=== PATIENT | male | born 1960 | race Two or more races ===

== ENCOUNTER 2024-04-03 21:06 | Inpatient (IN) | payer MEDICAID ==
[~2024-04-03] VITALS: Ht 185.4 cm; Wt 79.4 kg
[2024-04-03 21:50] LABS: Basophils # (auto) 0.1 10 ^3/uL (0-0.2); Eosinophils # (auto) 0.1 10 ^3/uL (0-0.8); Lymphocytes # (auto) 0.9 10 ^3/uL (0.4-5.4); Neutrophils # (auto) 7.7 10 ^3/uL (1.6-8.6); Nucleated Red Blood Cells % 0.1 %; Platelet Count (auto) 231 10^3/uL (140-450); Red Cell Distribution Width 18.9 % (11.8-14.3); White Blood Cell 9.8 10^3/uL (4.4-10.8)
[2024-04-03 21:52] LABS: Basophils % (auto) 0.9 % (0.0-2.0); Eosinophils % (auto) 1.3 % (0.0-7.0); Hemoglobin 9.7 g/dL (13.5-17.5); Lymphocytes % (auto) 9.1 % (10.0-50.0); Mean Corpuscular Hemoglobin 25.7 pg (28.0-32.0); Mean Corpuscular Hgb Conc. 31.3 g/dL (32.0-36.0); Mean Corpuscular Volume 82.1 fL (80.0-100.0); Monocytes # (auto) 0.9 10 ^3/uL (0-1.3); Monocytes % (auto) 9.7 % (0.0-12.0); Red Blood Cells 3.77 10^6/uL (4.5-5.90)
[2024-04-03 21:59] LABS: Chloride 110 mmol/L (98-107); Potassium 3.6 mmol/L (3.5-5.1); Sodium 141 mmol/L (136-145)
[2024-04-03 22:00] LABS: Anion Gap 17 (5-15); Calcium 8.8 mg/dL (8.7-10.4); Carbon Dioxide 14 mmol/L (20-31)
[2024-04-03 22:05] LABS: BUN/Creatinine Ratio 10.3 (10.0-20.0); Blood Urea Nitrogen 9 mg/dL (9-23); Glucose 160 mg/dL (74-106)
[2024-04-03 22:32] LABS: Urine Bacteria None Seen /hpf (None Seen)
[2024-04-03 22:35] VITALS: PULSE 67; RESP 14; O2SAT 94
[2024-04-03 22:42] LABS: Urine Blood 2+ /uL (Negative); Urine Clarity Clear (Clear); Urine Color Light-Yellow (Yellow); Urine Protein, UAD 1+ (Negative); Urine Specific Gravity 1.015 (1.001-1.035); Urine Urobilinogen Normal (Negative); Urine WBC <1 /hpf (0 - 3); Urine pH 5.5 (5.0-9.0)
[2024-04-04] MEDS: ONDANSETRON HCL 4 MG/2 ML VIAL IV ONE
[2024-04-04] MEDS: ACETAMINOPHEN IV 1000 MG/100ML (10MG/ML) IV STA (00:01)
[2024-04-04] MEDS: MORPHINE SULFATE 4 MG/ML SYR/VIAL IV ONE ×2 (02:43)
[2024-04-04 05:53] LABS: Amphetamine Screen, Urine Neg (NEGATIVE); Barbiturate Scree,Urine Neg (NEGATIVE); Benzodiazephine Screen, Urine Neg (NEGATIVE); Cocaine Screen, Urine Neg (NEGATIVE)
[2024-04-04 05:54] LABS: Cannabinoid Screen, Urine Neg (NEGATIVE); Opiate Scree,Urine Neg (NEGATIVE); Phencyclidine Screen, Urine Neg (NEGATIVE)
[2024-04-04] MEDS ORDERED: DEXTROSE (50%) 50ML SYRG IV PRN (06:00)
[2024-04-04] MEDS: SODIUM CHLOR 0.9% PF (SALINE LOCK) 10ML VIAL/SYR IV SCH (06:00)
[2024-04-04] MEDS ORDERED: ONDANSETRON HCL 4 MG/2 ML VIAL IV PRN (06:00)
[2024-04-04] MEDS ORDERED: NITROGLYCERIN 0.4 MG SL TAB SL PRN (06:00)
[2024-04-04] MEDS ORDERED: MORPHINE SULFATE INJ 2 MG/ml SYRG IV PRN (06:00)
[2024-04-04] MEDS ORDERED: DOCUSATE SOD 100 MG CAP PO PRN (06:00)
[2024-04-04] MEDS: ACCU-CHEK COMFORT CURVE STRIP VI SCH (06:38)
[2024-04-04] MEDS: InsuLIN REG 1unit/0.01ml Soln (100units/ml) SC SCH ×2 (06:39→22:34)
[2024-04-04] MEDS: MORPHINE SULFATE INJ 2 MG/ml SYRG IV PRN (06:40)
[2024-04-04] MEDS: LACTATED RINGER'S 1,000 ML IV SCH (08:15)
[2024-04-04] MEDS: HYDROcodone-ACET 5/325MG TAB PO PRN (09:21)
[2024-04-04 17:15] VITALS: BP 166/44; PULSE 66; RESP 18; TEMP 98.6; O2SAT 94
[2024-04-04 17:27] VITALS: BP 166/44; PULSE 66; RESP 18; TEMP 98.6; O2SAT 94
[2024-04-04] MEDS: ACETAMINOPHEN 325 MG TAB PO PRN (18:36)
[2024-04-04 20:00] VITALS: PULSE 71; RESP 16; O2SAT 95
[2024-04-04 21:00] VITALS: BP 140/70; PULSE 69; RESP 95; TEMP 99.2; O2SAT 95
[2024-04-04] MEDS ORDERED: TAMS1CAP25 PO (22:26)
[2024-04-05] VITALS (7 sets, daily range): BP systolic 118–153; BP diastolic 59–93; PULSE 67–78; RESP 17–20; TEMP 98.1–99.7; O2SAT 91–93
[2024-04-05 12:09] LABS: Basophils # (auto) 0 10 ^3/uL (0-0.2); Eosinophils # (auto) 0.1 10 ^3/uL (0-0.8); Hemoglobin 8.8 g/dL (13.5-17.5); Lymphocytes # (auto) 0.6 10 ^3/uL (0.4-5.4); Lymphocytes % (auto) 9.2 % (10.0-50.0); Mean Corpuscular Hemoglobin 25.4 pg (28.0-32.0); Monocytes # (auto) 0.7 10 ^3/uL (0-1.3); Neutrophils # (auto) 5.3 10 ^3/uL (1.6-8.6)
[2024-04-05 12:11] LABS: Basophils % (auto) 0.7 % (0.0-2.0); Eosinophils % (auto) 1.7 % (0.0-7.0); Hematocrit 28.4 % (41.0-53.0); Mean Corpuscular Hgb Conc. 30.8 g/dL (32.0-36.0); Mean Corpuscular Volume 82.3 fL (80.0-100.0); Monocytes % (auto) 10.7 % (0.0-12.0); Neutrophils % (auto) 77.7 % (37.0-80.0); Platelet Count (auto) 176 10^3/uL (140-450); Red Blood Cells 3.45 10^6/uL (4.5-5.90); Red Cell Distribution Width 18.8 % (11.8-14.3); White Blood Cell 6.8 10^3/uL (4.4-10.8)
[2024-04-05 12:24] LABS: Alanine Aminotransferase 16 U/L (7-40); Alkaline Phosphatase 88 U/L (46-116); Anion Gap 9 (5-15); Blood Urea Nitrogen 7 mg/dL (9-23); Carbon Dioxide 22 mmol/L (20-31); Chloride 105 mmol/L (98-107); Glucose 151 mg/dL (74-106); Potassium 3.5 mmol/L (3.5-5.1)
[2024-04-05 12:25] LABS: Albumin 3.8 g/dL (3.2-4.8); Aspartate Aminotransferase 25 U/L (13-40); Bilirubin, Total 1.4 mg/dL (0.2-1.0)
[2024-04-05 12:26] LABS: Sodium 136 mmol/L (136-145); Total Protein 6.7 g/dL (5.7-8.2)
[2024-04-05] MEDS ORDERED: IBUPROFEN 600 MG TAB PO PRN (14:00)
[2024-04-05] MEDS: ACETAMINOPHEN 325 MG TAB PO SCH (14:28)
[2024-04-05] MEDS: MORPHINE SULFATE INJ 2 MG/ml SYRG IV PRN (14:37)
[2024-04-05] MEDS ORDERED: diphenhdrAMINE HCL 50 MG/1 ML VL IV PRN (17:45)
[2024-04-05] MEDS: TAMSULOSIN HYDROCHLORIDE 0.4 MG CAP PO SCH (17:55)
[2024-04-05] MEDS: PANTOPRAZOLE 40 MG/10 ML VIAL INJ IV ONE (18:59)
[2024-04-05] MEDS: IBUPROFEN 600 MG TAB PO SCH (22:54)
[2024-04-06] VITALS (7 sets, daily range): BP systolic 112–144; BP diastolic 43–83; PULSE 61–78; RESP 17–20; TEMP 97.9–98.4; O2SAT 90–96
[2024-04-06] MEDS: oxyCODONE HCL 5MG TAB PO PRN (04:22)
[2024-04-06 06:00] LABS: Basophils # (auto) 0.1 10 ^3/uL (0-0.2); Lymphocytes # (auto) 0.7 10 ^3/uL (0.4-5.4); Monocytes # (auto) 0.6 10 ^3/uL (0-1.3); Neutrophils # (auto) 4.5 10 ^3/uL (1.6-8.6); White Blood Cell 6.1 10^3/uL (4.4-10.8)
[2024-04-06 06:04] LABS: Basophils % (auto) 1.5 % (0.0-2.0); Eosinophils # (auto) 0.2 10 ^3/uL (0-0.8); Eosinophils % (auto) 3.8 % (0.0-7.0); Hematocrit 25.2 % (41.0-53.0); Mean Corpuscular Hemoglobin 25.6 pg (28.0-32.0); Mean Corpuscular Hgb Conc. 31.7 g/dL (32.0-36.0); Mean Corpuscular Volume 80.9 fL (80.0-100.0); Monocytes % (auto) 9.7 % (0.0-12.0); Platelet Count (auto) 171 10^3/uL (140-450); Red Blood Cells 3.11 10^6/uL (4.5-5.90)
[2024-04-06 06:09] LABS: Alanine Aminotransferase 16 U/L (7-40); Albumin 3.6 g/dL (3.2-4.8); Alkaline Phosphatase 83 U/L (46-116); Anion Gap 10 (5-15); Aspartate Aminotransferase 21 U/L (13-40); BUN/Creatinine Ratio 9.2 (10.0-20.0); Blood Urea Nitrogen 8 mg/dL (9-23); Calcium 8.9 mg/dL (8.7-10.4); Carbon Dioxide 21 mmol/L (20-31); Chloride 104 mmol/L (98-107); Glucose 207 mg/dL (74-106); Potassium 3.4 mmol/L (3.5-5.1); Sodium 135 mmol/L (136-145); Total Protein 6.3 g/dL (5.7-8.2)
[2024-04-06 06:10] LABS: Bilirubin, Total 1.4 mg/dL (0.2-1.0)
[2024-04-06] MEDS: PANTOPRAZOLE 40 MG TAB PO SCH (06:27)
[2024-04-07] VITALS (8 sets, daily range): BP systolic 99–164; BP diastolic 61–78; PULSE 60–69; RESP 15–20; TEMP 97.7–98.2; O2SAT 16–96
[2024-04-07 06:52] LABS: Basophils # (auto) 0.1 10 ^3/uL (0-0.2); Basophils % (auto) 1.4 % (0.0-2.0); Hemoglobin 8.2 g/dL (13.5-17.5); Lymphocytes # (auto) 0.5 10 ^3/uL (0.4-5.4)
[2024-04-07 06:55] LABS: Eosinophils # (auto) 0.2 10 ^3/uL (0-0.8); Eosinophils % (auto) 5.5 % (0.0-7.0); Hematocrit 26.3 % (41.0-53.0); Mean Corpuscular Hemoglobin 25.2 pg (28.0-32.0); Mean Corpuscular Hgb Conc. 31.4 g/dL (32.0-36.0); Mean Corpuscular Volume 80.2 fL (80.0-100.0); Monocytes # (auto) 0.6 10 ^3/uL (0-1.3); Monocytes % (auto) 13.7 % (0.0-12.0); Neutrophils # (auto) 2.9 10 ^3/uL (1.6-8.6); Neutrophils % (auto) 67.4 % (37.0-80.0); Nucleated Red Blood Cells % 0.2 %; Platelet Count (auto) 178 10^3/uL (140-450); Red Blood Cells 3.27 10^6/uL (4.5-5.90); Red Cell Distribution Width 18.9 % (11.8-14.3); White Blood Cell 4.3 10^3/uL (4.4-10.8)
[2024-04-07 07:17] LABS: Alanine Aminotransferase 13 U/L (7-40); Alkaline Phosphatase 84 U/L (46-116); Anion Gap 10 (5-15); BUN/Creatinine Ratio 12.2 (10.0-20.0); Blood Urea Nitrogen 11 mg/dL (9-23); Calcium 8.7 mg/dL (8.7-10.4); Carbon Dioxide 23 mmol/L (20-31); Chloride 102 mmol/L (98-107); Glucose 233 mg/dL (74-106); Potassium 3.9 mmol/L (3.5-5.1); Sodium 135 mmol/L (136-145)
[2024-04-07 07:18] LABS: Albumin 3.8 g/dL (3.2-4.8); Aspartate Aminotransferase 15 U/L (13-40)
[2024-04-07 07:19] LABS: Total Protein 6.3 g/dL (5.7-8.2)
[2024-04-07] MEDS: BACLOFEN 10 MG TAB PO SCH (14:09)
[2024-04-07] MEDS ORDERED: BACL10TA PO (17:49)
[2024-04-07] MEDS ORDERED: OXY10CRT PO (17:49)
[2024-04-07] MEDS ORDERED: IBUP1TAB5 PO (17:49)
[2024-04-07] MEDS ORDERED: TAMS-35 PO (17:49)
[2024-04-07] MEDS ORDERED: OXYC-998 PO (17:49)
[2024-04-08 01:00] VITALS: BP 156/49; PULSE 65; RESP 17; TEMP 98.9; O2SAT 95
[2024-04-08 05:00] VITALS: BP 137/65; PULSE 68; RESP 19; TEMP 98.9; O2SAT 96
[2024-04-08 07:30] VITALS: BP 148/69
[2024-04-08 08:00] VITALS: PULSE 65
[2024-04-08 09:00] VITALS: BP 146/62; PULSE 64; RESP 18; TEMP 98.1; O2SAT 96
[2024-04-08 09:49] LABS: Hepatitis B Surface Antigen Negative (Negative)
[2024-04-08 10:10] LABS: Hepatitis A Ab IgM Negative
[2024-04-08 10:11] LABS: Hepatitis B Core IgM Negative
[2024-04-08 13:37] LABS: Hepatitis C Antibody Positive (Negative)
== END 2024-04-08 09:30 | disposition home or self-care (01) | DRG 775 ==
LOC: ER 21:06 → TELE 04-04 05:51 → TELE-WESTW 04-04 05:54
PROVIDERS: ADMIT Nurse Practitioner Family; ATTEND Student in an Organized Health Care Education/Training Program
DX: F10.129 Alcohol abuse with intoxication, unspecified (principal); S22.41XA Multiple fractures of ribs, right side, initial encounter for closed fracture; E88.09 Other disorders of plasma-protein metabolism, not elsewhere classified; K74.60 Unspecified cirrhosis of liver; E87.1 Hypo-osmolality and hyponatremia; E11.65 Type 2 diabetes mellitus with hyperglycemia; D64.9 Anemia, unspecified; E80.6 Other disorders of bilirubin metabolism; E87.6 Hypokalemia; R29.6 Repeated falls; Y90.9 Presence of alcohol in blood, level not specified; W01.0XXA Fall on same level from slipping, tripping and stumbling without subsequent striking against object, initial encounter; Z88.8 Allergy status to other drugs, medicaments and biological substances; Z95.1 Presence of aortocoronary bypass graft; Z83.3 Family history of diabetes mellitus; Y93.89 Activity, other specified; Y92.89 Other specified places as the place of occurrence of the external cause; Y99.8 Other external cause status
CPT/HCPCS: 36415; 70450; 71045; 71111; 72040; 72070; 73200; 80048; 80053; 80074; 80307; 80320; 81001; 82962; 83540; 83550; 84484; 85025; 86803; 87081; G0378; J0131; J1815; J2405; J2470

== ENCOUNTER 2024-04-24 16:22 | Inpatient (IN) | payer MEDICAID ==
[~2024-04-24] VITALS: Ht 185.4 cm; Wt 75.7 kg
[~2024-04-24 16:22] MED LIST: BACL10TA PO; IBUP1TAB5 PO; OXY10CRT PO; OXYC-998 PO; TAMS-35 PO; TAMS1CAP25 PO
[2024-04-24 16:45] VITALS: PULSE 83; RESP 19; O2SAT 95
--- NOTE | 2024-04-24 17:07 | ED.PDOC ---
John. trauma (HPI) HPI Comments 63 y.o male with PMH of CAD and DM, presents to the ED for an evaluation of generalized weakness associated with a fall. Patient reports 2 days ago he had a slip and fall in his bathroom, states he hit the left side of his head before falling and lost consciousness for about 5-10 minutes. Patient managed to get to his walker and assist himself up, was able to bear some weigh to left leg briefly but felt immediate pain and shifted his weight onto the right leg. Patient states since this fall he has uncontrolled shaking associated with left knee, right shoulder blade pain. Patient was seen at this hospital on 04/04/24 for another fall, X rays showed "displaced multiple rib fractures". Patient's BG upon ED arrival read 439 and [phone]. Patient has a caregiver at home who lives with him, states caregiver brought him to the ED . Patient had an extensive cardiac history of: Triple/quadruple bypass, PTCA x9, aicd, and bilateral feet/all toe amputation. Chief Complaint: General Weakness Time Seen by MD: 16:46 Reviewed notes: Nurses Notes, Medications, Allergies Allergies: Coded Allergies: Codeine (Verified Allergy, Unknown, 04/24/24) Ketorolac Tromethamine (Verified Allergy, Unknown, 04/03/24) Home Meds Active Scripts Ibuprofen Micronized (Ibuprofen) 600 Mg Tab, 600 MG PO BID for 7 Days, #14 TAB Prov:TAMMY ANNE MD 04/07/24 Oxycodone HCl (Oxycodone Hydrochloride) 10 Mg Tab, 10 MG PO TIDPRN PRN for 7 Days, #21 TAB Prov:TAMMY ANNE MD 04/07/24 Oxycodone Hcl (OxyCONTIN ER Tablet) 10 Mg Tb, 1 TAB PO BID for 7 Days, #14 TAB 0 Refills Prov:TAMMY ANNE MD 04/07/24 Tamsulosin Hcl (Flomax) 0.4 Mg Cap, 0.4 MG PO QPM for 30 Days, #30 CAP 0 Refills Prov:TAMMY ANNE MD 04/07/24 Baclofen (Baclofen) 10 Mg Tab, 5 MG PO Q8HR for 30 Days, #45 TAB 0 Refills Prov:TAMMY ANNE MD 04/07/24 Reported Medications Tamsulosin HCl (Tamsulosin Hydrochloride) 0.4 Mg Cap, 0.4 MG PO, CAP 04/04/24 Information Source: Patient Mode of Arrival: Wheelchair Severity: Moderate Timing: Hours Duration: Since onset Location: (L) Knee, (R) Shoulder Location of laceration: None Mechanism: Fall Associated signs and symtoms: Other Past Medical History PAST MEDICAL HISTORY: CAD, DM Surgical History: CABG, PTCA (9) Surgical History (Other): Bilateral feet/toes amputations Family History Family History: Reviewed,noncontributory to illness Social History Smoker: Non-Smoker Alcohol: Heavy Drugs: Denies Drug Use Lives In: Home Constitutional: reports: weakness; denies: chills, diaphoresis, fatigue, fever, malaise, sweats, others EENTM: denies: blurred vision, double vision, ear bleeding, ear discharge, ear drainage, ear pain, ear ringing, eye pain, eye redness, hearing loss, mouth pain, mouth swelling, nasal discharge, nose bleeding, nose congestion, nose pain, photophobia, tearing, throat pain, throat swelling, voice changes, others Respiratory: denies: cough, hemoptysis, orthopnea, SOB at rest, shortness of breath, SOB with excertion, stridor, wheezing, others Cardiovascular: denies: chest pain, dizzy spells, diaphoresis, Dyspnea on exertion, edema, irregular heart beat, left arm pain, lightheadedness, palpitations, PND, syncope, others Gastrointestinal: denies: abdomen distended, abdominal pain, blood streaked bowels, constipated, diarrhea, dysphagia, difficulty swallowing, hematemesis, melena, nausea, poor appetite, poor fluid intake, rectal bleeding, rectal pain, vomiting, others Genitourinary: denies: burning, dysuria, flank pain, frequency, hematuria, incontinence, penile discharge, penile sore, pain, testicle pain, testicle swelling, urgency, others Neurological: reports: others (shakiness sensation ); denies: dizziness, fainting, headache, left sided numbness, left sided weakness, numbness, paresthesia, pre-existing deficit, right sided numbness, right sided weakness, seizure, speech problems, tingling, tremors, weakness Musculoskeletal: reports: others (left knee, right shoulderblade pain ); denies: back pain, gout, joint pain, joint swelling, muscle pain, muscle sti ffness, neck pain Integumetry: denies: bruises, change in color, change in hair/nails, dryness, laceration, lesions, lumps, rash, wounds, others Allergic/Immunocompromised: denies: Difficulty Healing, Frequent Infections, Hives, Itching, others Hematologic/Lymphatic: denies: anemia, blood clots, easy bleeding, easy b ruising, swollen glands, others Endocrine: denies: excessive hunger, excessive sweating, excessive thirst, excessive urination, flushing, intolerance to cold, intolerance to heat, unexplained weight gain, unexplained weight loss, others Psychiatric: denies: anxiety, bipolar disorder, depression, hopeless, panic disorder, schizophrenia, sleepless, suicidal, others All Other Systems: Reviewed and Negative Physical Exam General Appearance: Mild Distress HEENT: PERRL/EOMI, Other (Superficial facial abrasion with soft tissue tenderness) Neck: Full Range of Motion, Non-Tender, Normal Inspection, Supple Respiratory: Lungs Clear, No Accessory Muscle Use, No Respiratory Distress, Normal Breath Sounds Cardiovascular: No JVD, Regular Rate/Rhythm Breast Exam: Deferred Gastrointestinal: Non Tender, Soft Genitalia: Deferred Pelvic: Deferred Rectal: Deferred Extremities: Calf tenderness (Left), Swelling (Bilateral knee soft tissue swelling and mild bruising, left greater than right. ), Tender (Soft tissue tenderness overlying the right scapular area. Mild diffuse left shoulder soft tissue tenderness. Bilateral knee diffuse tenderness, left greater than right.), Other (Bilateral knee anterior/posterior drawer test negative. No varus/valgus instability.) Neurologic: Alert (Oriented x4), Normal Affect, Normal Mood, Other (Moves all extremities, no facial asymmetry) Cerebellar Function: NOT DONE Reflexes: NOT DONE Skin: Bruises (Bilateral knees, right greater than left), Dry, Normal Color, Warm, Other (Superficial left facial abrasion) Lymphatic: NOT DONE Was a procedure done? Was a procedure done?: No Other Procedure Procedure Left lower extremity splint Indication Left tibial plateau fracture with knee effusion Informed consent obtained: Yes Risks, benefits, and alternati: Yes Notes Left lower extremity was placed in a long posterior molded splint. The left lower extremity was neurovascularly intact after the splint was applied. EKG EKG : Comments EKG sinus rhythm, rate 81, short ID interval at 49, prolonged QRS at 147, prolonged QTC at 452, LVH, old inferior and/or lateral infarct, inferior lateral T inversion Differential Diagnosis Multiple Trauma: Closed Head Injury, Fractures, Cerebral Contusion, Abrasions, Contusion, Hematoma, Other (Dehydration, electrolyte imbalance, CVA, TIA, VTE, infection such as UTI or pneumonia, sepsis, anemia, among others) X-Ray, Labs, Meds, VS Vital Signs Date Time Temp Pulse Resp B/P (MAP) Pulse Ox O2 Delivery O2 Flow Rate FiO2 04/24/24 21:10 106 18 121/68 04/24/24 20:40 102 17 131/59 04/24/24 20:18 102 17 131/59 (83) 98 04/24/24 20:00 81 19 98 Nasal Cannula* 3 32 04/24/24 20:00 90 04/24/24 19:00 81 19 114/68 (83) 91 04/24/24 18:06 84 20 112/57 04/24/24 17:27 83 19 122/60 04/24/24 17:22 81 04/24/24 16:45 83 19 95 Room Air* 0 21 04/24/24 16:45 83 19 122/60 (80) 95 04/24/24 16:34 97.5 85 18 130/62 (84) 95 Lab Test 04/24/24 19:37 04/24/24 19:06 04/24/24 19:05 04/24/24 18:03 Range/Units Lactic Acid Level 2.4 *H 0.4-2.0 mmol/L POC Glucose 432 *H 412 *H 70-106 mg/dl Troponin I High Sensitivity 5 </=54 ng/L Test 04/24/24 17:50 04/24/24 17:25 04/24/24 17:13 Range/Units Blood Gas Specimen Type Arterial Blood Gas Sample Site Right radial Blood Gas Patient Temperature 37.0 Arterial Blood Date Drawn [id number] Arterial Blood pH 7.418 7.350-7.450 Arterial Blood Partial Pressure CO2 26.7 L 35.0-48.0 mmHg Arterial Blood Partial Pressure O2 57.0 L 83.0-108.0 mmHg Arterial Blood HCO3 16.9 L 21.0-28.0 mmol/L Arterial Blood Oxygen Saturation 87.1 L 94.0-98.0 % Arterial Blood Base Excess -6.4 L -2.0-3.0 mmol/L Arterial Blood Oxyhemoglobin 85.8 L 94.0-98.0 % Arterial Blood Carboxyhemoglobin 1.3 0.5-1.5 % Arterial Blood Methemoglobin 0.2 0.0-1.5 % Mario Test Yes Blood Gas Total Hemoglobin 10.60 L 13.5-17.5 g/dL Blood Gas Modality Room air FiO2 % 21.0 Urine Color Light-yellow Yellow Urine Clarity Clear Clear Urine pH 5.5 5.0-9.0 Urine Specific [place] 1.031 1.001-1.035 Urine Protein 1+ H Negative Urine Ketones 1+ H Negative Urine Blood 1+ H Negative /uL Urine Nitrite Negative Negative Urine Bilirubin Negative Negative Urine Urobilinogen Normal Negative mg/dL Urine Leukocyte Esterase Trace Negative /uL Urine RBC 5 0 - 3 /hpf Urine WBC 19 0 - 3 /hpf Urine Squamous Epithelial Cells Few <5 /hpf Urine Bacteria None seen None Seen /hpf Urine Glucose 4+ H Normal mg/dL White Blood Count 17.7 H 4.4-10.8 10^3/uL Red Blood Count 3.92 L 4.5-5.90 10^6/uL Hemoglobin 9.7 L 13.5-17.5 g/dL Hematocrit 31.3 L 41.0-53.0 % Mean Corpuscular Volume 79.6 L 80.0-100.0 fL Mean Corpuscular Hemoglobin 24.8 L 28.0-32.0 pg Mean Corpuscular Hemoglobin Concent 31.2 L 32.0-36.0 g/dL Red Cell Distribution Width 19.5 H 11.8-14.3 % Platelet Count 279 140-450 10^3/uL Mean Platelet Volume 9.0 6.9-10.8 fL Neutrophils (%) (Auto) 93.5 H 37.0-80.0 % Lymphocytes (%) (Auto) 1.6 L 10.0-50.0 % Monocytes (%) (Auto) 3.8 0.0-12.0 % Eosinophils (%) (Auto) 0.4 0.0-7.0 % Basophils (%) (Auto) 0.7 0.0-2.0 % Neutrophils # (Auto) 16.5 H 1.6-8.6 10 ^3/uL Lymphocytes # (Auto) 0.3 L 0.4-5.4 10 ^3/uL Monocytes # (Auto) 0.7 0-1.3 10 ^3/uL Eosinophils # (Auto) 0.1 0-0.8 10 ^3/uL Basophils # (Auto) 0.1 0-0.2 10 ^3/uL Nucleated Red Blood Cells 0.0 % Sodium Level 134 L 136-145 mmol/L Potassium Level 3.9 3.5-5.1 mmol/L Chloride Level 101 98-107 mmol/L Carbon Dioxide Level 20 20-31 mmol/L Anion Gap 13 5-15 Blood Urea Nitrogen 31 H 9-23 mg/dL Creatinine 1.29 0.700-1.30 mg/dL Glomerular Filtration Rate Calc 63 >90 mL/min BUN/Creatinine Ratio 24.0 H 10.0-20.0 Serum Glucose 481 *H 74-106 mg/dL Lactic Acid Level 3.0 *H 0.4-2.0 mmol/L Calcium Level 8.7 8.7-10.4 mg/dL Troponin I High Sensitivity 5 </=54 ng/L B-Type Natriuretic Peptide 116.02 0-100 pg/mL Beta-Hydroxybutyric Acid 1.778 H < 0.4 mmol/L Current Medications Medications (Trade) Dose Ordered Sig/Sunny Route Start Time Stop Time Status Last Admin Morphine Sulfate 4 mg ONCE ONCE IV 04/24/24 17:00 04/24/24 17:01 DC 04/24/24 17:27 Ondansetron HCl (Zofran) 4 mg ONCE ONCE IV 04/24/24 17:00 04/24/24 17:01 DC 04/24/24 17:26 Insulin Human Regular (InsuLIN R) 4 units ONCE ONCE IV 04/24/24 17:00 04/24/24 17:01 DC 04/24/24 17:26 Sodium Chloride 1,000 ml @ 1,000 mls/hr Q1H ONCE IV 04/24/24 18:15 04/24/24 19:14 DC 04/24/24 18:13 Insulin Human Regular (InsuLIN R) 4 units ONCE ONCE IV 04/24/24 19:15 04/24/24 19:16 DC 04/24/24 19:42 Morphine Sulfate 4 mg ONCE ONCE IV 04/24/24 20:30 04/24/24 20:31 DC 04/24/24 20:40 PROCEDURE(s): HWOCT - HEAD WITHOUT CONTRAST REASON: L sided head injury with loc ORDER NUMBER(s): [id number], ACCESSION NUMBER(s): [id number] EXAM: CT HEAD WITHOUT CONTRAST INDICATION: L sided head injury with loc TECHNIQUE: CT of the head without intravenous contrast. Radiation Dose Information: CT Dose: CTDI volume is 52.21 mGy. Dose-length product is 837.05 mGy*cm The dose indicators for CT are the volume Computed Tomography (CT) Dose Index (CTDIvol) and the Dose Length Product (DLP), and are measured in units of mGy and mGy-cm, respectively. These indicators are not patient dose, but values generated from the CT scanner acquisition factors. The report includes radiation exposure data for exposures received during this examination. COMPARISON: CT CT L SHOULDER WO CONTRAST on DOS: 04/06/24, CT HEAD WITHOUT CONTRAST on DOS: 04/03/24 FINDINGS: There is no evidence of acute intracranial hemorrhage, extra-axial collection, mass effect, midline shift, herniation or hydrocephalus. The ventricles, sulci and cisterns are age appropriate. The sheppard-white differentiation is intact. Patchy periventricular and subcortical white matter hypoattenuation is nonspecific but may be related to small vessel ischemic disease. The visualized paranasal sinuses and mastoid air cells are clear. The surrounding soft tissues and osseous structures are unremarkable. IMPRESSION: 1. No acute intracranial hemorrhage. 2. No CT findings of skull fracture. EDURE(s): LSHD2 - L SHOULDER 2+ VIEW XRAY REASON: fall ORDER NUMBER(s): [id number], ACCESSION NUMBER(s): [id number] CLINICAL INDICATION: fall TECHNIQUE: XY L SHOULDER 2+ VIEW XRAY Comparison: XY L SHOULDER 2+ VIEW XRAY on DOS: 04/03/24 FINDINGS/IMPRESSION: There is no evidence of acute fracture or dislocation. Large ossification adjacent to the humeral head concerning for calcific tendinitis. The visualized joint space is well maintained. The alignment is anatomical. There is no radiopaque foreign body. EDURE(s): RSCAP - R SCAPULA COMPLETE XRAY REASON: FALL ORDER NUMBER(s): [id number], ACCESSION NUMBER(s): [id number] CLINICAL INDICATION: FALL TECHNIQUE: 2 radiographic views of the right scapula were obtained. Comparison: None FINDINGS/IMPRESSION: There is no evidence of acute fracture or dislocation. The visualized joint space is well maintained. The alignment is anatomical. There is no radiopaque foreign body. EDURE(s): CXRP - CHEST PORTABLE REASON: gen weak ORDER NUMBER(s): [id number], ACCESSION NUMBER(s): [id number] CHEST RADIOGRAPH Indication:gen weak Technique: Single frontal view of the chest was obtained Comparison: XY CHEST PORTABLE on DOS: 04/03/24 Findings/ IMPRESSION: Left-sided cardiac device with intact leads. Mild cardiomegaly. Low lung v olumes with mild bronchovascular crowding. No focal consolidation or pneumothorax. No pleural effusions. EDURE(s): LKNE3 - L KNEE 3V XRAY REASON: fall ORDER NUMBER(s): [id number], ACCESSION NUMBER(s): [id number] CLINICAL INDICATION: fall TECHNIQUE: 3 radiographic views of the left knee. were obtained. Comparison: None FINDINGS/IMPRESSION: There appears to be a nondisplaced fractures through the medial tibial plateau with a moderate joint effusion. EDURE(s): LLDVT - LT Lower DVT REASON: LLE pain/calf tender ORDER NUMBER(s): [id number], ACCESSION NUMBER(s): [id number] Procedure: US LT Lower DVT Study Date and Requested Time: 04/24/2024 05:43 PM History: LLE pain/calf tender Comparison: None Technique: Multiple high resolution sheppard-scale images with and without compression obtained of the left lower extremity veins, including the common femoral vein, deep femoral vein, proximal mid and distal superficial femoral vein, and popliteal vein. Additional limited images of the greater saphenous vein also obtained. Augmentation performed as indicated. Color and spectral do ppler flow images obtained as indicated. Findings: The left popliteal vein and trifurcation are not visualized. Otherwise, No visible intraluminal venous thrombus no evidence of incompressibility or abnormal color or spectral Doppler flow visualized in the left lower extremity veins including, the common femoral vein, deep femoral vein, proximal and mid superficial femoral vein. Greater saphenous vein grossly unremarkable. Impression: The left distal superficial femoral vein, popliteal vein and trifurcation are not visualized due to patient inability to bend knee . Otherwise, No sonographic evidence of left lower extremity deep venous thrombosis. EDURE(s): RKN3 - R KNEE 3V XRAY REASON: fall ORDER NUMBER(s): [id number], ACCESSION NUMBER(s): [id number] CLINICAL INDICATION: fall TECHNIQUE: 3 radiographic views of the right knee were obtained. Comparison: None FINDINGS/IMPRESSION: There is no evidence of acute fracture or dislocation. The visualized joint space is well maintained. The alignment is anatomical. There is no radiopaque foreign body. Significant soft tissue edema anterior to the knee. Vascular calcification is noted. X-Ray, Labs, Meds, VS Comment 63-year-old male with a history of hypertension, diabetes, CAD presenting with generalized weakness and body pain after a fall Vitals remarkable for temperature 97.5 Exam remarkable for superficial abrasion on the left face, right scapular tenderness left shoulder diffuse tenderness, bilateral knee tenderness, left calf tenderness EKG sinus rhythm, rate 81, short ID interval at 49, prolonged QRS at 147, prolonged QTC at 452, LVH, old inferior and/or lateral infarct, inferior lateral T inversion CT head unremarkable Right scapula x-ray unremarkable Left shoulder x-ray no fracture or dislocation Chest x-ray IMPRESSION: Left-sided cardiac device with intact leads. Mild cardiomegaly. Low lung volumes with mild bronchovascular crowding. No focal consolidation or pneumothorax. No pleural effusions. Right knee x-ray: Soft tissue swelling, no acute fracture or dislocation Left knee x-ray: FINDINGS/IMPRESSION: There appears to be a nondisplaced fractures through the medial tibial plateau with a moderate joint effusion. Left lower extremity Doppler ultrasound Impression: The left distal superficial femoral vein, popliteal vein and trifurcation are not visualized due to patient inability to bend knee . Otherwise, No sonographic evidence of left lower extremity deep venous thrombosis. CBC remarkable for WBC 17.7 with left shift, BMP remarkable for sodium 134, BUN 31, glucose 481, normal anion gap Lactate 3, beta hydroxybutyrate 1.778 ABG pH 7.4, pCO2 26.7, PO2 57, bicarb 6.9, oxygen saturation 87% Patient was treated with the following in the ED: Morphine 4 mg IV, Zofran 4 mg IV, 1 L 0.9 normal saline IV bolus, regular insulin 4 units IV x2 The left lower extremity was placed in a long posterior molded splint. The left lower extremity was neurovascularly intact after the splint was applied. Plan is to admit the patient for IV hydration, pain control, glucose control an orthopedic evaluation. Time of 1ST Reevaluation: 16:54 Reevaluation 1ST: Unchanged Time of 2ND Reevaluation: 19:30 Reevaluation 2ND: Improved Patient Education/Counseling: Diagnosis, Treatment, Prognosis Family Education/Counseling: No Family Present Departure 1 Departure Time of Disposition: 19:28 Impression: Primary Impression: Generalized weakness Additional Impressions: Hyperglycemia Dehydration Elevated lactic acid level Tibial plateau fracture, left Qualified Codes: S82.142A - Displaced bicondylar fracture of left tibia, initial encounter for closed fracture Effusion of knee joint, left Disposition: ADMITTED INPATIENT Admit to: Med Surg Condition: Guarded Critical Care Note Critical Care Time?: No Stability Stability form required: No I personally scribed for CURT SMITH MD ([facility]) on 04/24/24 at 17:07. Electronically submitted by Jayna Shepherd ([facility]). I personally scribed for CURT SMITH MD ([facility]) on 04/24/24 at 18:15. Electronically submitted by Jayna Shepherd ([facility]). I personally scribed for CURT SMITH MD ([facility]) on 04/24/24 at 18:57. Electronically submitted by Jayna Shepherd ([facility]). CURT SMITH MD Apr 24, 2024 17:07
[2024-04-24 17:25] LABS: Basophils # (auto) 0.1 10 ^3/uL (0-0.2); Basophils % (auto) 0.7 % (0.0-2.0); Eosinophils # (auto) 0.1 10 ^3/uL (0-0.8); Eosinophils % (auto) 0.4 % (0.0-7.0); Hematocrit 31.3 % (41.0-53.0); Hemoglobin 9.7 g/dL (13.5-17.5); Lymphocytes # (auto) 0.3 10 ^3/uL (0.4-5.4); Lymphocytes % (auto) 1.6 % (10.0-50.0); Mean Corpuscular Hemoglobin 24.8 pg (28.0-32.0); Mean Corpuscular Hgb Conc. 31.2 g/dL (32.0-36.0); Mean Corpuscular Volume 79.6 fL (80.0-100.0); Monocytes # (auto) 0.7 10 ^3/uL (0-1.3); Monocytes % (auto) 3.8 % (0.0-12.0); Neutrophils # (auto) 16.5 10 ^3/uL (1.6-8.6); Neutrophils % (auto) 93.5 % (37.0-80.0); Platelet Count (auto) 279 10^3/uL (140-450); Red Blood Cells 3.92 10^6/uL (4.5-5.90); Red Cell Distribution Width 19.5 % (11.8-14.3); White Blood Cell 17.7 10^3/uL (4.4-10.8)
[2024-04-24] MEDS: ONDANSETRON HCL 4 MG/2 ML VIAL IV ONE (17:26)
[2024-04-24] MEDS: InsuLIN REG 1unit/0.01ml Soln (100units/ml) IV ONE ×3 (17:26→19:42)
[2024-04-24] MEDS: MORPHINE SULFATE 4 MG/ML SYR/VIAL IV ONE ×2 (17:27→20:40)
[2024-04-24 17:33] LABS: Chloride 101 mmol/L (98-107); Potassium 3.9 mmol/L (3.5-5.1); Sodium 134 mmol/L (136-145)
[2024-04-24 17:34] LABS: Anion Gap 13 (5-15); Calcium 8.7 mg/dL (8.7-10.4); Carbon Dioxide 20 mmol/L (20-31)
[2024-04-24 17:39] LABS: Blood Urea Nitrogen 31 mg/dL (9-23)
[2024-04-24 17:44] LABS: Glucose 481 mg/dL (74-106)
[2024-04-24 17:57] LABS: Base Excess -6.4 mmol/L (-2.0-3.0)
[2024-04-24] MEDS: SODIUM CHLORIDE 0.9% 1,000 ML IV ONE (18:13)
--- NOTE | 2024-04-24 18:14 | DVH ---
Procedure: US LT Lower DVT Study Date and Requested Time: 04/24/2024 05:43 PM History: LLE pain/calf tender Comparison: None Technique: Multiple high resolution sheppard-scale images with and without compression obtained of the le ft lower extremity veins, including the common femoral vein, deep femoral vein, proximal mid and dist al superficial femoral vein, and popliteal vein. Additional limited images of the greater saphenous v ein also obtained. Augmentation performed as indicated. Color and spectral doppler flow images obtain ed as indicated. Findings: The left popliteal vein and trifurcation are not visualized. Otherwise, No visible intraluminal venou s thrombus no evidence of incompressibility or abnormal color or spectral Doppler flow visualized in the left lower extremity veins including, the common femoral vein, deep femoral vein, proximal and mi d superficial femoral vein. Greater saphenous vein grossly unremarkable. Impression: The left distal superficial femoral vein, popliteal vein and trifurcation are not visualized due to p atient inability to bend knee . Otherwise, No sonographic evidence of left lower extremity deep trip ous thrombosis.
[2024-04-24 18:42] LABS: Urine Bacteria None Seen /hpf (None Seen)
[2024-04-24 18:54] LABS: Urine Blood 1+ /uL (Negative); Urine Clarity Clear (Clear); Urine Color Light-Yellow (Yellow); Urine Protein, UAD 1+ (Negative); Urine Specific Gravity 1.031 (1.001-1.035); Urine Urobilinogen Normal (Negative); Urine WBC 19 /hpf (0 - 3); Urine pH 5.5 (5.0-9.0)
--- NOTE | 2024-04-24 19:21 | DVH ---
CLINICAL INDICATION: fall TECHNIQUE: 3 radiographic views of the left knee. were obtained. Comparison: None FINDINGS/IMPRESSION: There appears to be a nondisplaced fractures through the medial tibial plateau with a moderate joint effusion.
--- NOTE | 2024-04-24 19:21 | DVH ---
CHEST RADIOGRAPH Indication:gen weak Technique: Single frontal view of the chest was obtained Comparison: XY CHEST PORTABLE on DOS: 04/03/24 Findings/ IMPRESSION: Left-sided cardiac device with intact leads. Mild cardiomegaly. Low lung volumes with mild bronchova scular crowding. No focal consolidation or pneumothorax. No pleural effusions.
--- NOTE | 2024-04-24 19:22 | DVH ---
CLINICAL INDICATION: fall TECHNIQUE: XY L SHOULDER 2+ VIEW XRAY Comparison: XY L SHOULDER 2+ VIEW XRAY on DOS: 04/03/24 FINDINGS/IMPRESSION: There is no evidence of acute fracture or dislocation. Large ossification adjacent to the humeral hea d concerning for calcific tendinitis. The visualized joint space is well maintained. The alignment is anatomical. There is no radiopaque foreign body.
--- NOTE | 2024-04-24 19:31 | DVH ---
EXAM: CT HEAD WITHOUT CONTRAST INDICATION: L sided head injury with loc TECHNIQUE: CT of the head without intravenous contrast. Radiation Dose Information: CT Dose: CTDI volume is 52.21 mGy. Dose-length product is 837.05 mGy*cm The dose indicators for CT are the volume Computed Tomography (CT) Dose Index (CTDIvol) and the Dose Length Product (DLP), and are measured in units of mGy and mGy-cm, respectively. These indicators are not patient dose, but values generated from the CT scanner acquisition factors. The report includes radiation exposure data for exposures received during this examination. COMPARISON: CT CT L SHOULDER WO CONTRAST on DOS: 04/06/24, CT HEAD WITHOUT CONTRAST on DOS: 04/03/24 FINDINGS: There is no evidence of acute intracranial hemorrhage, extra-axial collection, mass effect, midline s hift, herniation or hydrocephalus. The ventricles, sulci and cisterns are age appropriate. The sheppard-white differentiation is intact. Patchy periventricular and subcortical white matter hypoattenuation is nonspecific but may be related to small vessel ischemic disease. The visualized paranasal sinuses and mastoid air cells are clear. The surrounding soft tissues and osseous structures are unremarkable. IMPRESSION: 1. No acute intracranial hemorrhage. 2. No CT findings of skull fracture.
--- NOTE | 2024-04-24 19:33 | DVH ---
CLINICAL INDICATION: fall TECHNIQUE: 3 radiographic views of the right knee were obtained. Comparison: None FINDINGS/IMPRESSION: There is no evidence of acute fracture or dislocation. The visualized joint space is well maintained. The alignment is anatomical. There is no radiopaque foreign body. Significant soft tissue edema anterior to the knee. Vascular calcification is noted.
--- NOTE | 2024-04-24 19:42 | DVH ---
CLINICAL INDICATION: FALL TECHNIQUE: 2 radiographic views of the right scapula were obtained. Comparison: None FINDINGS/IMPRESSION: There is no evidence of acute fracture or dislocation. The visualized joint space is well maintained. The alignment is anatomical. There is no radiopaque foreign body.
[2024-04-24 20:00] VITALS: PULSE 81; RESP 19; O2SAT 98
[2024-04-24] MEDS ORDERED: ONDANSETRON HCL 4 MG/2 ML VIAL IV PRN (22:15)
[2024-04-24] MEDS ORDERED: MAALOX PLUS or MAALOX 30 ML PO PRN (22:15)
[2024-04-24] MEDS ORDERED: DOCUSATE SOD 100 MG CAP PO PRN (22:15)
[2024-04-24] MEDS ORDERED: DEXTROSE (50%) 50ML SYRG IV PRN (22:15)
[2024-04-24] MEDS: SODIUM CHLORIDE 0.9% 1,000 ML IV SCH (22:35)
--- NOTE | 2024-04-24 22:38 | DVHHP2 ---
History of Present Illness Reason for Visit: Leg Pain History of Present Illness 63 yo fell at home several days ago hurting his leg mostly around the knee with complaints of swelling and pain that showed to increase over time making it more and more difficult to ambulate on ed evaluation for trauma patient was also noted to have severely uncontrolled dm which also needed managment and patient was recommended for admission from the ed Cardiovascular: CAD Endocrine: Diabetes Review of Systems Constitutional: No: Fever, Chills, Sweats, Weakness, Malaise, Other Eyes: No: Pain, Vision change, Conjunctivae inflammation, Eyelid inflammation, Other, Redness ENT: No: Ear pain, Ear discharge, Nose pain, Nose discharge, Nose congestion, Mouth pain, Mouth swelling, Throat pain, Throat swelling, Other Respiratory: No: Cough, Dry, Shortness of breath, SOB with excertion, Wheezing, Hemoptysis, Pleuritic Pain, Sputum, Wheezing, Other Cardiovascular: No: Chest Pain, Palpitations, Orthopnea, Paroxysmal Noc. Dyspnea, Edema, Lt Headedness, Other Gastrointestinal: No: Nausea, Vomiting, Abdominal Pain, Diarrhea, Constipation, Melena, Hematochezia, Other Genitourinary: No Dysuria, No Frequency, No Incontinence, No Hematuria, No Retention, No Other Musculoskeletal: No: other, neck pain, shoulder pain, arm pain, back pain, hand pain, leg pain, foot pain Skin: No: Rash, Lesions, Jaundice, Bruising, Other Neurological: No: Weakness, Numbness, Incoordination, Change in speech, Confusion, Seizures, Other Allergies: Coded Allergies: Codeine (Verified Allergy, Unknown, 04/24/24) Ketorolac Tromethamine (Verified Allergy, Unknown, 04/03/24) Exam Vital Signs Vital Signs Date Time Temp Pulse Resp B/P (MAP) Pulse Ox O2 Delivery O2 Flow Rate FiO2 04/24/24 21:10 106 18 121/68 04/24/24 20:18 98 04/24/24 20:00 Nasal Cannula* 3 32 04/24/24 16:34 97.5 General Appearance: Alert, Oriented X3 HEENT: Atraumatic, PERRLA Respiratory: Clear to auscultation, Normal air movement Cardiovascular: Regular rate, Normal S1, Normal S2 Abdominal: Normal bowel sounds, Soft Extremities: No clubbing, No cyanosis Skin: No rashes, No breakdown Neuro: Normal gait, Normal speech Psych/Mental Status: Mood NL Labs/Xrays Labs Test 04/24/24 19:37 04/24/24 19:06 04/24/24 18:03 04/24/24 17:50 Range/Units Lactic Acid Level 2.4 *H 0.4-2.0 mmol/L POC Glucose 432 *H 70-106 mg/dl Troponin I High Sensitivity 5 </=54 ng/L Blood Gas Specimen Type Arterial Blood Gas Sample Site Right radial Blood Gas Patient Temperature 37.0 Arterial Blood Date Drawn [id number] Arterial Blood pH 7.418 7.350-7.450 Arterial Blood Partial Pressure CO2 26.7 L 35.0-48.0 mmHg Arterial Blood Partial Pressure O2 57.0 L 83.0-108.0 mmHg Arterial Blood HCO3 16.9 L 21.0-28.0 mmol/L Arterial Blood Oxygen Saturation 87.1 L 94.0-98.0 % Arterial Blood Base Excess -6.4 L -2.0-3.0 mmol/L Arterial Blood Oxyhemoglobin 85.8 L 94.0-98.0 % Arterial Blood Carboxyhemoglobin 1.3 0.5-1.5 % Arterial Blood Methemoglobin 0.2 0.0-1.5 % Mario Test Yes Blood Gas Total Hemoglobin 10.60 L 13.5-17.5 g/dL Blood Gas Modality Room air FiO2 % 21.0 Test 04/24/24 17:25 04/24/24 17:13 Range/Units Urine Color Light-yellow Yellow Urine Clarity Clear Clear Urine pH 5.5 5.0-9.0 Urine Specific [place] 1.031 1.001-1.035 Urine Protein 1+ H Negative Urine Ketones 1+ H Negative Urine Blood 1+ H Negative /uL Urine Nitrite Negative Negative Urine Bilirubin Negative Negative Urine Urobilinogen Normal Negative mg/dL Urine Leukocyte Esterase Trace Negative /uL Urine RBC 5 0 - 3 /hpf Urine WBC 19 0 - 3 /hpf Urine Squamous Epithelial Cells Few <5 /hpf Urine Bacteria None seen None Seen /hpf Urine Glucose 4+ H Normal mg/dL White Blood Count 17.7 H 4.4-10.8 10^3/uL Red Blood Count 3.92 L 4.5-5.90 10^6/uL Hemoglobin 9.7 L 13.5-17.5 g/dL Hematocrit 31.3 L 41.0-53.0 % Mean Corpuscular Volume 79.6 L 80.0-100.0 fL Mean Corpuscular Hemoglobin 24.8 L 28.0-32.0 pg Mean Corpuscular Hemoglobin Concent 31.2 L 32.0-36.0 g/dL Red Cell Distribution Width 19.5 H 11.8-14.3 % Platelet Count 279 140-450 10^3/uL Mean Platelet Volume 9.0 6.9-10.8 fL Neutrophils (%) (Auto) 93.5 H 37.0-80.0 % Lymphocytes (%) (Auto) 1.6 L 10.0-50.0 % Monocytes (%) (Auto) 3.8 0.0-12.0 % Eosinophils (%) (Auto) 0.4 0.0-7.0 % Basophils (%) (Auto) 0.7 0.0-2.0 % Neutrophils # (Auto) 16.5 H 1.6-8.6 10 ^3/uL Lymphocytes # (Auto) 0.3 L 0.4-5.4 10 ^3/uL Monocytes # (Auto) 0.7 0-1.3 10 ^3/uL Eosinophils # (Auto) 0.1 0-0.8 10 ^3/uL Basophils # (Auto) 0.1 0-0.2 10 ^3/uL Nucleated Red Blood Cells 0.0 % Sodium Level 134 L 136-145 mmol/L Potassium Level 3.9 3.5-5.1 mmol/L Chloride Level 101 98-107 mmol/L Carbon Dioxide Level 20 20-31 mmol/L Anion Gap 13 5-15 Blood Urea Nitrogen 31 H 9-23 mg/dL Creatinine 1.29 0.700-1.30 mg/dL Glomerular Filtration Rate Calc 63 >90 mL/min BUN/Creatinine Ratio 24.0 H 10.0-20.0 Serum Glucose 481 *H 74-106 mg/dL Calcium Level 8.7 8.7-10.4 mg/dL B-Type Natriuretic Peptide 116.02 0-100 pg/mL Beta-Hydroxybutyric Acid 1.778 H < 0.4 mmol/L Assessment/Plan Assessment/Plan Admit Med/Surge Fall Leg Pain with swelling stated multiple rib fractures due to fall Joint Effusion Fall at home prn meds for pain PT evaluation tibial platuea fracture noted with effusion DM Uncontrolled Hyperglycemia Glucose > 400 aggressive sliding scale Plan discussed with: Patient My Orders Orders - SELENA STALEY MD Procedure Category Date Status Time Tamsulosin [facility] 04/25/24 Transmitted Hydrochloride (Flomax) 10:00 Admit ADMIT 04/24/24 Transmitted 22:04 Code Status CODE 04/24/24 Transmitted 22:04 Vital Signs [facility] 04/24/24 Transmitted 22:04 Review Orders With [facility] 04/24/24 Transmitted Adm. 22:04 Consistent DIET 04/25/24 Transmitted Carb(Ccho)Diabetes Breakfast Sodium Chloride 0.9% PHA 04/24/24 Transmitted 22:15 Lorazepam Tablet PHA 04/24/24 Transmitted (Ativan Tablet) 22:[address] [facility] 04/24/24 Transmitted Hydrox-Simethicone 22:15 Docusate Sodium PHA 04/24/24 Transmitted Capsule (Colace 22:15 Acetaminophen Tablet PHA 04/24/24 Transmitted (Tylenol Tablet) 22:15 Temazepam (Restoril) [facility] 04/24/24 Transmitted 22:15 Notify Of Changes [facility] 04/24/24 Transmitted From Base 22:04 Advance Directive [facility] 04/24/24 Transmitted 22:04 Basic Metabolic Panel LAB 04/25/24 Verified 04:00 Complete Blood Count LAB 04/25/24 Verified 04:00 Patient Condition ORDERS 04/24/24 Transmitted 22:04 Allergies [facility] 04/24/24 Transmitted 22:[address] [facility] 04/24/24 Transmitted (Zofran) 22:15 Morphine 2mg Iv Q4hprn [facility] 04/24/24 Transmitted 22:[address] [facility] 04/25/24 Transmitted 10:00 Notify Of Changes [facility] 04/24/24 Transmitted From Base 22:04 Oxygen By Nasal RT 04/24/24 Transmitted Cannula 22:04 Glucose Blood PHA 04/25/24 Transmitted (Accu-Chek Comfort 00:00 Agressive Insulin Ss PHA 04/25/24 Transmitted 00:00 Dextrose 50% Syringe PHA 04/24/24 Transmitted 22:15 Problem List: (1) Syncope and collapse (2) Frequent falls (3) Generalized weakness (4) Dehydration (5) Effusion of knee joint, left (6) Tibial plateau fracture, left (7) Multiple fractures of ribs, right side, initial encounter for closed fracture Date of Service: Apr 24, 2024 Billing Provider: SELENA STALEY MD Common Visit Codes: [id number] INP/OBS CARE (HIGH) SELENA STALEY MD Apr 24, 2024 22:38
[2024-04-25] VITALS (9 sets, daily range): BP systolic 92–155; BP diastolic 31–76; PULSE 72–90; RESP 14–19; TEMP 97.6–98.9; O2SAT 92–95
[2024-04-25] MEDS: ACCU-CHEK COMFORT CURVE STRIP VI SCH (00:42)
[2024-04-25] MEDS: InsuLIN REG 1unit/0.01ml Soln (100units/ml) SC SCH (00:49)
[2024-04-25] MEDS: ACETAMINOPHEN 325 MG TAB PO PRN (02:28)
[2024-04-25] MEDS ORDERED: HYDROcodone-ACET 10/325MG TAB PO ONE (02:45)
[2024-04-25 03:37] LABS: Basophils # (auto) 0 10 ^3/uL (0-0.2); Basophils % (auto) 0.2 % (0.0-2.0); Eosinophils # (auto) 0 10 ^3/uL (0-0.8); Hemoglobin 9.2 g/dL (13.5-17.5); Mean Corpuscular Hemoglobin 24.9 pg (28.0-32.0); Mean Corpuscular Hgb Conc. 31.4 g/dL (32.0-36.0); Monocytes # (auto) 0.8 10 ^3/uL (0-1.3); White Blood Cell 14.8 10^3/uL (4.4-10.8)
[2024-04-25 03:39] LABS: Eosinophils % (auto) 0.1 % (0.0-7.0); Hematocrit 29.2 % (41.0-53.0); Lymphocytes # (auto) 0.3 10 ^3/uL (0.4-5.4); Lymphocytes % (auto) 1.7 % (10.0-50.0); Mean Corpuscular Volume 79.6 fL (80.0-100.0); Monocytes % (auto) 5.4 % (0.0-12.0); Neutrophils # (auto) 13.7 10 ^3/uL (1.6-8.6); Neutrophils % (auto) 92.6 % (37.0-80.0); Nucleated Red Blood Cells % 0.1 %; Platelet Count (auto) 245 10^3/uL (140-450); Red Blood Cells 3.67 10^6/uL (4.5-5.90); Red Cell Distribution Width 19.5 % (11.8-14.3)
[2024-04-25 03:57] LABS: Anion Gap 10 (5-15); Carbon Dioxide 19 mmol/L (20-31); Chloride 107 mmol/L (98-107); Potassium 3.8 mmol/L (3.5-5.1); Sodium 136 mmol/L (136-145)
[2024-04-25 03:58] LABS: Calcium 8.7 mg/dL (8.7-10.4)
[2024-04-25 04:03] LABS: Blood Urea Nitrogen 33 mg/dL (9-23)
[2024-04-25 04:16] LABS: Glucose 403 mg/dL (74-106)
[2024-04-25] MEDS: cefTRIAXone 1GM/50ML D5W 50 ML IV SCH (04:58)
[2024-04-25] MEDS ORDERED: ENOXAPARIN SOD 30 MG/0.3 ML SYRINGE SC SCH (10:00)
[2024-04-25] MEDS: TAMSULOSIN HYDROCHLORIDE 0.4 MG CAP PO SCH (10:25)
[2024-04-25] MEDS: ENOXAPARIN SOD 40 MG/0.4 ML SYRINGE SC SCH (10:25)
--- NOTE | 2024-04-25 12:19 | DVHPN2 ---
Subjective Patient reporting generalized weakness and severe pain to left knee Reviewed: Care Plan, H&P, Labs, Medications, Previous Orders Changes from previous H/P or p: No Changes General: Per HPI Eyes: No Pain, No Vision change, No Conjunctivae inflammation, No Eyelid inflammation, No Other, No Redness ENT: No Ear pain, No Ear discharge, No Nose pain, No Nose discharge, No Nose congestion, No Mouth pain, No Mouth swelling, No Throat pain, No Throat swelling, No Other Cardiovascular: No Chest Pain, No Palpitations, No Orthopnea, No Paroxysmal Noc. Dyspnea, No Edema, No Lt Headedness, No Other Respiratory: No Cough, No Dry, No Shortness of breath, No SOB with excertion, No Wheezing, No Hemoptysis, No Pleuritic Pain, No Sputum, No Other Gastrointestinal: No Nausea, No Vomiting, No Abdominal Pain, No Diarrhea, No Constipation, No Melena, No Hematochezia, No Other Genitourinary: No Dysuria, No Frequency, No Incontinence, No Hematuria, No Retention, No Other Musculoskeletal: No other, No neck pain, No shoulder pain, No arm pain, No back pain, No hand pain, No leg pain, No foot pain Skin: No Rash, No Lesions, No Jaundice, No Bruising, No Other Objective Vitals Vital Signs Date Time Temp Pulse Resp B/P (MAP) Pulse Ox O2 Delivery O2 Flow Rate FiO2 04/25/24 11:03 92/35 (54) 04/25/24 10:35 98.0 74 19 93 98.0 04/24/24 20:00 Nasal Cannula* 3 32 Intake/Output Intake and Output 04/25/24 06:59 Intake Total 1850 ml Balance 1850 ml Intake IV Total 1850 ml General Appearance: Alert, Oriented X3, Cooperative HEENT: Atraumatic, PERRLA Lungs: Clear to auscultation, Normal air movement Cardiovascular: Normal S1, Normal S2 Extremities: Other (Dressing to left lower extremity dry and intact.) Neuro: Sensation intact Skin: Dry, Intact Psych/Mental Status: Mental status NL, Mood NL Medications Current Medications Medications Dose Ordered Sig/Sunny Route Start Time Stop Time Status Last Admin Dose Admin Tamsulosin HCl 0.4 mg DAILY PO 04/25/24 10:00 04/25/24 10:25 0.4 MG Sodium Chloride 1,000 ml @ 100 mls/hr Q10H IV 04/24/24 22:15 04/25/24 08:42 100 MLS/HR Lorazepam 0.5 mg Q6HP PRN PO 04/24/24 22:15 Al Hydrox/Mg Hydrox/Simethicone 30 ml Q6HP PRN PO 04/24/24 22:15 Docusate Sodium 100 mg BIDPRN PRN PO 04/24/24 22:15 Acetaminophen 650 mg Q6HP PRN PO 04/24/24 22:15 04/25/24 08:53 650 MG Temazepam 15 mg QHSP PRN PO 04/24/24 22:15 Ondansetron HCl 4 mg Q4HP PRN IV 04/24/24 22:15 Morphine Sulfate 2 mg Q4HPRN PRN IV 04/24/24 22:15 Enoxaparin Sodium 30 mg DAILY SC 04/25/24 10:00 UNV Diagnostic Test (Pha) 1 strip IQ4HR 04/25/24 00:00 04/25/24 08:25 1 STRIP Insulin Human Regular IQ4HR SC 04/25/24 00:00 04/25/24 08:46 16 UNITS Dextrose 50 ml UD PRN IV 04/24/24 22:15 Enoxaparin Sodium 40 mg DAILY SC 04/25/24 10:00 04/25/24 10:25 40 MG Oxycodone/ Acetaminophen 2 tab Q6HP PRN PO 04/25/24 12:00 Piperacillin Sod/ Tazobactam Sod 100 ml @ 25 mls/hr Q8HR IV 04/25/24 14:00 Linezolid 300 ml @ 150 mls/hr Q12H IV 04/25/24 20:00 Laboratory Results Laboratory Tests 04/25/24 03:18 Chemistry Test 04/24/24 17:13 04/25/24 03:18 Calcium Level 8.7 mg/dL (8.7-10.4) 8.7 mg/dL (8.7-10.4) Magnesium Level Pending Lipid panel Test 04/25/24 03:18 Cholesterol Level Pending HDL Cholesterol Pending Triglycerides Level Pending Cardiac Markers Test 04/24/24 17:13 B-Type Natriuretic Peptide 116.02 pg/mL (0-100) HgA1c, TSH Test 04/25/24 03:18 Hemoglobin A1c Pending Urinalysis Test 04/24/24 17:25 Urine Color Light-yellow (Yellow) Urine Clarity Clear (Clear) Urine pH 5.5 (5.0-9.0) Urine Specific [place] 1.031 (1.001-1.035) Urine Protein 1+ (Negative) H Urine Ketones 1+ (Negative) H Urine Blood 1+ /uL (Negative) H Urine Nitrite Negative (Negative) Urine Bilirubin Negative (Negative) Urine Urobilinogen Normal mg/dL (Negative) Urine Leukocyte Esterase Trace /uL (Negative) Urine RBC 5 /hpf (0 - 3) Urine WBC 19 /hpf (0 - 3) Urine Squamous Epithelial Cells Few /hpf (<5) Urine Bacteria None seen /hpf (None Seen) Urine Glucose 4+ mg/dL (Normal) H Blood Gas Results Test 04/24/24 17:50 Arterial Blood pH 7.418 (7.350-7.450) FiO2 % 21.0 Labs and/or images reviewed: Labs reviewed by me, Image(s) reviewed by me Assessment/Plan Assessment/Plan Impression: -sepsis -rule out left knee septic arthritis -acute on chronic decompensated systolic heart failure -syncope with collapse -history of probable coronary artery disease with CABG -diabetes mellitus, uncontrolled -acute kidney injury, vasomotor nephropathy -chronic pain syndrome with chronic opiate use -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 This medical document was created using an electronic medical record system with [employer] dictation system. Although this document has been carefully reviewed, there may still be some phonetic and typographical errors. These areas are purely typographical due to imperfections of the software programs, and do not reflect any compromise in the patient's medical care. Plan discussed with: Patient, Other (RN) My Orders Orders - [employer] Procedure Category Date Status Time Mrsa Screen CRISTIANO 04/25/24 Uncollected 11:15 Erythrocyte LAB 04/25/24 In Process Sedimentation Rate 11:33 Sodium Chloride 0.9% PHA 04/25/24 In Process 11:45 Complete Blood Count LAB 04/26/24 Verified 04:00 Comprehensive LAB 04/26/24 Verified Metabolic Panel 04:00 PTPTT LAB 04/26/24 Verified 04:00 Ct L Knee Wo Contrast CT 04/25/24 Logged 11:33 * Orthopedic Consult CONS 04/25/24 Transmitted 11:[address] 04/25/24 Logged 11:48 Echo 2d Mode Cardiac US 04/25/24 Logged DOP 11:48 Oxycodone W/ Acet PHA 04/25/24 In Process 5/325mg Tab (Percocet 12:00 Piperacillin-Tazob PHA 04/25/24 In Process 3.375gm (Zosyn 3.375g 14:00 Linezolid 600mg/300ml PHA 04/25/24 In Process (Zyvox) 20:00 Blood Culture CRISTIANO 04/25/24 Logged 11:48 Iron Panel LAB 04/25/24 In Process 11:48 Hemoglobin A1c LAB 04/25/24 In Process 11:48 Clinical Statistics Manager To Assess ORDERS 04/25/24 Transmitted Pacemaker 11:48 Carotid Duplx W Color US 04/25/24 Logged DOP 11:48 Magnesium LAB 04/25/24 In Process 11:48 Lipid Panel LAB 04/25/24 In Process 11:48 * Cardiology Consult CONS 04/25/24 Transmitted 11:48 Basic Metabolic Panel LAB 04/25/24 Logged 11:56 Drug Screen LAB 04/25/24 Logged 11:58 Date of Service: Apr 25, 2024 Billing Provider: [employer] [employer] Common Visit Codes: [id number] INP/OBS CARE(HIGH) [employer] Apr 25, 2024 12:19
[2024-04-25 12:21] LABS: Erythrocyte Sedimentation Rate 92 mm/hr (0-20)
[2024-04-25 12:26] LABS: Magnesium 2.3 mg/dL (1.6-2.6)
[2024-04-25] MEDS: OXYCODONE W/ ACETAMINOPHEN 5/325MG TABLET PO PRN (12:30)
[2024-04-25] MEDS: SODIUM CHLORIDE 0.9% 500 ML IV ONE (12:33)
[2024-04-25 12:44] LABS: % Iron Saturation 4.2 % (20-55)
[2024-04-25 12:55] LABS: Amphetamine Screen, Urine Neg (NEGATIVE); Barbiturate Scree,Urine Neg (NEGATIVE); Benzodiazephine Screen, Urine Neg (NEGATIVE); Cannabinoid Screen, Urine Neg (NEGATIVE); Cocaine Screen, Urine Neg (NEGATIVE); Opiate Scree,Urine Pos (NEGATIVE); Phencyclidine Screen, Urine Neg (NEGATIVE)
[2024-04-25 13:18] LABS: Chloride 108 mmol/L (98-107); Potassium 3.4 mmol/L (3.5-5.1); Sodium 136 mmol/L (136-145)
[2024-04-25 13:19] LABS: Anion Gap 9 (5-15); Calcium 8.2 mg/dL (8.7-10.4); Carbon Dioxide 19 mmol/L (20-31)
[2024-04-25 13:24] LABS: BUN/Creatinine Ratio 17.6 (10.0-20.0); Blood Urea Nitrogen 36 mg/dL (9-23)
[2024-04-25 13:29] LABS: Glucose 185 mg/dL (74-106)
--- NOTE | 2024-04-25 13:38 | DVH ---
EXAM: CT HEAD WITHOUT CONTRAST INDICATION: syncope with fall TECHNIQUE: CT of the head without intravenous contrast. Radiation Dose Information: CT Dose: CTDI volume is 25 mGy. Dose-length product is 250 mGy*cm The dose indicators for CT are the volume Computed Tomography (CT) Dose Index (CTDIvol) and the Dose Length Product (DLP), and are measured in units of mGy and mGy-cm, respectively. These indicators are not patient dose, but values generated from the CT scanner acquisition factors. The report includes radiation exposure data for exposures received during this examination. COMPARISON: CT HEAD WITHOUT CONTRAST on DOS: 04/24/24, CT CT L SHOULDER WO CONTRAST on DOS: 04/06/24, CT HEAD WITHOUT CONTRAST on DOS: 04/03/24 FINDINGS: There is no evidence of acute intracranial hemorrhage, extra-axial collection, mass effect, midline s hift, herniation or hydrocephalus. The ventricles, sulci and cisterns are age appropriate. The sheppard-white differentiation is intact. Patchy periventricular and subcortical white matter hypoattenuation is nonspecific but may be related to small vessel ischemic disease. The visualized paranasal sinuses and mastoid air cells are clear. The surrounding soft tissues and osseous structures are unremarkable. IMPRESSION: No acute intracranial abnormality.
--- NOTE | 2024-04-25 14:24 | DVH ---
INDICATION: 63 years old, Male; rule out septic arthrtitis. COMPARISON: CT HEAD WITHOUT CONTRAST on DOS: 04/24/24, CT CT L SHOULDER WO CONTRAST on DOS: 04/06/24, CT HEAD WITHOUT CONTRAST on DOS: 04/03/24 TECHNIQUE: CT of the right was performed without contrast. Volume transverse images were obtained a nd reconstructed in multiple planes using bone and soft tissue algorithms. CONTRAST: None Radiation Dose Information: CT Dose: CTDI volume is 67.37 mGy. Dose-length product is 1469.87 mGy*cm FINDINGS: The alignment is normal. Nondisplaced fracture through the medial tibial plateau. The joint spaces are normal. There is no fracture, dislocation, or focal osseous lesions. There are numerous scattered bubbles of gas in the soft tissues. IMPRESSION: Nondisplaced fracture through the medial tibial plateau. Numerous small bubbles of gas in the soft tissues of the left knee consistent with infection.
[2024-04-25] MEDS: PIPERACILLIN-TAZOB 3.375GM 100 ML IV SCH ×2 (14:41→23:18)
--- NOTE | 2024-04-25 14:43 | DVH ---
Carotid Duplex Date: 04/25/2024 01:44 PM Clinical History: syncope Comparison: None Technique: Duplex Doppler evaluation of the extracranial carotid and vertebral arteries including color Doppler and spectral/pulsed waveform analysis was performed. Findings: RIGHT SIDE: The peak systolic velocities are 115.7 cm/s in the distal CCA and 146.8 cm/s in the proximal ICA.The ICA/CCA ratio is less than 2. The external carotid artery is patent with peak systolic velocity of 182.3 cm/s proximally. There is appropriate antegrade flow in the right vertebral artery, 103.3 LEFT SIDE: The peak systolic velocities are 163.9 cm/s in the distal CCA and 208 cm/s in the proximal ICA.. The ICA/CCA ratio is less than 2. The external carotid artery is patent with peak systolic velocity of 91.4 cm/s proximally. There is appropriate antegrade flow in the left vertebral artery, 88.7 cm/s. IMPRESSION: 1. No hemodynamically significant stenosis noted in the right carotid system. 2. No hemodynamically significant stenosis noted in the left carotid system. 3. Reference: Radiology 2003; 229:340-346
[2024-04-25] MEDS: MORPHINE SULFATE INJ 2 MG/ml SYRG IV PRN (17:57)
--- NOTE | 2024-04-25 19:11 | ECG ---
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
[2024-04-25] MEDS: LINEZOLID 600MG/300ML 300 ML IV SCH (20:44)
[2024-04-26] VITALS (8 sets, daily range): BP systolic 101–156; BP diastolic 39–92; PULSE 66–87; RESP 14–23; TEMP 98.3–101.3; O2SAT 92–97
[2024-04-26 01:01] LABS: Basophils # (auto) 0 10 ^3/uL (0-0.2); Basophils % (auto) 0.4 % (0.0-2.0); Eosinophils # (auto) 0.1 10 ^3/uL (0-0.8); Eosinophils % (auto) 0.7 % (0.0-7.0); Hematocrit 26.3 % (41.0-53.0); Lymphocytes # (auto) 0.4 10 ^3/uL (0.4-5.4); Lymphocytes % (auto) 3.8 % (10.0-50.0); Mean Corpuscular Hemoglobin 24.7 pg (28.0-32.0); Mean Corpuscular Hgb Conc. 30.6 g/dL (32.0-36.0); Mean Corpuscular Volume 80.8 fL (80.0-100.0); Monocytes # (auto) 0.7 10 ^3/uL (0-1.3); Monocytes % (auto) 5.8 % (0.0-12.0); Neutrophils % (auto) 89.3 % (37.0-80.0); Platelet Count (auto) 183 10^3/uL (140-450); Red Blood Cells 3.26 10^6/uL (4.5-5.90); Red Cell Distribution Width 19.7 % (11.8-14.3); White Blood Cell 11.2 10^3/uL (4.4-10.8)
[2024-04-26 01:17] LABS: INR 1.04 (0.9-1.15); Partial Thromboplastin Time 33.9 SEC (24.5-34.5)
[2024-04-26 01:23] LABS: Alanine Aminotransferase 20 U/L (7-40); Alkaline Phosphatase 107 U/L (46-116); Anion Gap 10 (5-15); Aspartate Aminotransferase 66 U/L (13-40); BUN/Creatinine Ratio 19.6 (10.0-20.0); Bilirubin, Total 0.6 mg/dL (0.2-1.0); Blood Urea Nitrogen 38 mg/dL (9-23); Calcium 8.3 mg/dL (8.7-10.4); Carbon Dioxide 17 mmol/L (20-31); Chloride 108 mmol/L (98-107); Glucose 231 mg/dL (74-106); Potassium 3.8 mmol/L (3.5-5.1); Sodium 135 mmol/L (136-145)
[2024-04-26 01:30] LABS: Lactic Acid w/Reflex 2.3 mmol/L (0.4-2.0)
--- NOTE | 2024-04-26 07:49 | DVHSR ---
APPROVED REPORT EXAM: LIMITED Two-dimensional and M-mode echocardiogram with Doppler and color Doppler. Blood Pressure: 92/35 mmHg INDICATION Decompensated HF Surgery/Intervention Pacemaker: [employer] Height: 6' 1", Weight: 189 DIMENSIONS LVDd5.5 (3.8-5.7cm)LA (2D)4.1 (1.9-4.0cm)Aortic Root4.1 (2.0-3.7cm) LVDs4.3 (2.5-4.0cm)LA (MM) (1.9-4.0cm)Aortic Cusp Exc (1.5-2.0cm) EF (%) 45.0 (55-70%)Rt. Atrium (1.9-4.0cm)Asc. Aorta cm IVSd1.1 (0.7-1.1cm)RV (D) (1.8-2.4cm) PWd0.9 (0.7-1.1cm) Mitral Valve MitralMitral Stenosis E wave0.50m/sMV Mean GR.mmHg A wave0.60m/sMV Peak GR.mmHg E/A ratio0.82D MVAcm2 Aortic Valve Aortic ValveAortic Stenosis V11.00m/Smooth Mean GR.5mmHg V21.50m/Smooth Peak GR.10mmHg LVOT Diameter2.2 (1.8-2.4cm)Doppler AVA2.53cm2 Other Information Quality : Technically LimitedRhythm : Technically limited study due to body habitus, patient can not lay on left side due to fall. Conclusion lvef 45% by visual estimate hypokientic septum/ abnormal wall motion RV not well seen Left atrium enlarged mild no severe valve abnormaliites noted
--- NOTE | 2024-04-26 08:19 | DVH ---
Left SHOULDER RADIOGRAPHS CLINICAL HISTORY: Left shoulder pain TECHNIQUE: AP, lateral and oblique views of the left shoulder were obtained. COMPARISON: XY L SHOULDER 2+ VIEW XRAY on DOS: 04/24/24, XY L SHOULDER 2+ VIEW XRAY on DOS: 04/03/24 FINDINGS/IMPRESSION: 1. There is no evidence of an acute fracture or dislocation. The alignment is anatomic. Joint spaces are maintained. There are calcifications which project just above the left humeral head compatible w ith calcific tendinosis. There is a pacer device in the left chest wall. The soft tissues appear wit hin normal limits. HS:Y
--- NOTE | 2024-04-26 12:31 | DVHINCON2 ---
Date of service: Apr 26, 2024 Reason for Consultation Left knee pain History of Present Illness Mr. Alcantara is a 63-year-old male who was brought to the hospital due to concerns of left knee pain that began approximately four days ago after he experienced a mechanical fall where he landed on his knee and has been having swelling and pain to that knee since the fall. He denied any head trauma, loss of consciousness, chest pain, shortness of breath, nausea, vomiting, fever, or chills. Patient is otherwise feeling well denying any other complaints or concerns during my evaluation. Past Medical History CAD, DM Past Surgical History CABG, PTCA, Bilateral feet/toes amputations Family History: Diabetes mellitus G8 MOTHER FHx: kidney disease G8 MOTHER Family History Noncontributory Social History Patient admits to frequent alcohol use but denies any illicit substance abuse or smoking Allergies: Coded Allergies: Hydrocodone (Verified Allergy, Severe, LEG SWELLING, 04/25/24) Codeine (Verified Allergy, Unknown, 04/24/24) Ketorolac Tromethamine (Verified Allergy, Unknown, 04/03/24) Home Meds Active Scripts Ibuprofen Micronized (Ibuprofen) 600 Mg Tab, 600 MG PO BID for 7 Days, #14 TAB Prov:TAMMY ANNE MD 04/07/24 Oxycodone HCl (Oxycodone Hydrochloride) 10 Mg Tab, 10 MG PO TIDPRN PRN for 7 Days, #21 TAB Prov:TAMMY ANNE MD 04/07/24 Oxycodone Hcl (OxyCONTIN ER Tablet) 10 Mg Tb, 1 TAB PO BID for 7 Days, #14 TAB 0 Refills Prov:TAMMY ANNE MD 04/07/24 Tamsulosin Hcl (Flomax) 0.4 Mg Cap, 0.4 MG PO QPM for 30 Days, #30 CAP 0 Refills Prov:TAMMY ANNE MD 04/07/24 Baclofen (Baclofen) 10 Mg Tab, 5 MG PO Q8HR for 30 Days, #45 TAB 0 Refills Prov:TAMMY ANNE MD 04/07/24 Reported Medications Tamsulosin HCl (Tamsulosin Hydrochloride) 0.4 Mg Cap, 0.4 MG PO, CAP 04/04/24 Current Medications Current Medications Medications (Trade) Dose Ordered Sig/Sunny Route PRN Reason Start Time Stop Time Status Last Admin Piperacillin Sod/ Tazobactam Sod 100 ml @ 25 mls/hr Q8HR IV 04/25/24 14:00 04/25/24 23:10 DC 04/25/24 14:41 Linezolid 300 ml @ 150 mls/hr Q12H IV 04/25/24 20:00 04/26/24 08:23 Piperacillin Sod/ Tazobactam Sod 100 ml @ 25 mls/hr Q8H IV 04/25/24 23:30 04/26/24 11:11 Review of Systems 10 point review of systems negative except as per HPI Vital Signs Vital Signs Date Time Temp Pulse Resp B/P (MAP) Pulse Ox O2 Delivery O2 Flow Rate FiO2 04/26/24 09:26 83 14 149/58 04/26/24 09:00 98.3 95 98.3 04/26/24 08:10 Room Air* 0 21 Physical Exam General appearance: A&O x4 in no acute distress HEENT: Normal ENT inspection, pharynx normal, TMs normal Neck: Full range of motion, nontender, normal inspection Respiratory: Chest nontender, without accessory muscle use, no respiratory distress Cardiovascular: No edema, no JVD, normal peripheral pulses Gastrointestinal: Soft, nontender, no organomegaly. Musculoskeletal: Left knee range of motion grossly limited with pain on slight movement, no calf tenderness, normal capillary refill, no pedal edema, neurovascularly intact. Skin: Dry, normal color, warm Lymphatic: No adenopathy Labs/Diagnostic Data Labs Test 04/26/24 03:35 04/26/24 00:45 04/25/24 13:00 04/25/24 12:04 Range/Units POC Glucose 239 H 70-106 mg/dl White Blood Count 11.2 H 4.4-10.8 10^3/uL Red Blood Count 3.26 L 4.5-5.90 10^6/uL Hemoglobin 8.0 L 13.5-17.5 g/dL Hematocrit 26.3 L 41.0-53.0 % Mean Corpuscular Volume 80.8 80.0-100.0 fL Mean Corpuscular Hemoglobin 24.7 L 28.0-32.0 pg Mean Corpuscular Hemoglobin Concent 30.6 L 32.0-36.0 g/dL Red Cell Distribution Width 19.7 H 11.8-14.3 % Platelet Count 183 140-450 10^3/uL Mean Platelet Volume 9.0 6.9-10.8 fL Neutrophils (%) (Auto) 89.3 H 37.0-80.0 % Lymphocytes (%) (Auto) 3.8 L 10.0-50.0 % Monocytes (%) (Auto) 5.8 0.0-12.0 % Eosinophils (%) (Auto) 0.7 0.0-7.0 % Basophils (%) (Auto) 0.4 0.0-2.0 % Neutrophils # (Auto) 10.0 H 1.6-8.6 10 ^3/uL Lymphocytes # (Auto) 0.4 0.4-5.4 10 ^3/uL Monocytes # (Auto) 0.7 0-1.3 10 ^3/uL Eosinophils # (Auto) 0.1 0-0.8 10 ^3/uL Basophils # (Auto) 0 0-0.2 10 ^3/uL Nucleated Red Blood Cells 0.0 % Prothrombin Time 11.0 9.3-11.8 sec Prothrombin Time INR 1.04 0.9-1.15 Activated Partial Thromboplast Time 33.9 24.5-34.5 SEC Sodium Level 135 L 136-145 mmol/L Potassium Level 3.8 3.5-5.1 mmol/L Chloride Level 108 H 98-107 mmol/L Carbon Dioxide Level 17 L 20-31 mmol/L Anion Gap 10 5-15 Blood Urea Nitrogen 38 H 9-23 mg/dL Creatinine 1.94 H 0.700-1.30 mg/dL Glomerular Filtration Rate Calc 38 >90 mL/min BUN/Creatinine Ratio 19.6 10.0-20.0 Serum Glucose 231 H 74-106 mg/dL Lactic Acid Level 2.3 *H 0.4-2.0 mmol/L Calcium Level 8.3 L 8.7-10.4 mg/dL Total Bilirubin 0.6 0.2-1.0 mg/dL Aspartate Amino Transferase (AST) 66 H 13-40 U/L Alanine Aminotransferase (ALT) 20 7-40 U/L Alkaline Phosphatase 107 46-116 U/L B-Type Natriuretic Peptide 119.63 0-100 pg/mL Total Protein 6.0 5.7-8.2 g/dL Albumin 3.0 L 3.2-4.8 g/dL Hemoglobin A1c 8.9 H <5.7 % A1C Urine Opiates Screen Pos NEGATIVE Urine Fentanyl Screen Neg NEGATIVE Urine Barbiturates Screen Neg NEGATIVE Urine Phencyclidine Screen Neg NEGATIVE Urine Amphetamines Screen Neg NEGATIVE Urine Benzodiazepines Screen Neg NEGATIVE Urine Cocaine Screen Neg NEGATIVE Urine Cannabinoids Screen Neg NEGATIVE Test 04/25/24 03:18 04/24/24 18:03 04/24/24 17:50 04/24/24 17:25 Range/Units Erythrocyte Sedimentation Rate 92 H 0-20 mm/hr Magnesium Level 2.3 1.6-2.6 mg/dL Iron Level 9 L 65-175 ug/dL Total Iron Binding Capacity 214 L 250-425 ug/dL Percent Iron Saturation 4.2 L 20-55 % Triglycerides Level 132 < 150 mg/dL Cholesterol Level 75 < 200 mg/dL LDL Cholesterol 31 < 100 mg/dL HDL Cholesterol 12 L 40-59 mg/dL Troponin I High Sensitivity 5 </=54 ng/L Blood Gas Specimen Type Arterial Blood Gas Sample Site Right radial Blood Gas Patient Temperature 37.0 Arterial Blood Date Drawn [id number] Arterial Blood pH 7.418 7.350-7.450 Arterial Blood Partial Pressure CO2 26.7 L 35.0-48.0 mmHg Arterial Blood Partial Pressure O2 57.0 L 83.0-108.0 mmHg Arterial Blood HCO3 16.9 L 21.0-28.0 mmol/L Arterial Blood Oxygen Saturation 87.1 L 94.0-98.0 % Arterial Blood Base Excess -6.4 L -2.0-3.0 mmol/L Arterial Blood Oxyhemoglobin 85.8 L 94.0-98.0 % Arterial Blood Carboxyhemoglobin 1.3 0.5-1.5 % Arterial Blood Methemoglobin 0.2 0.0-1.5 % Mario Test Yes Blood Gas Total Hemoglobin 10.60 L 13.5-17.5 g/dL Blood Gas Modality Room air FiO2 % 21.0 Urine Color Light-yellow Yellow Urine Clarity Clear Clear Urine pH 5.5 5.0-9.0 Urine Specific [place] 1.031 1.001-1.035 Urine Protein 1+ H Negative Urine Ketones 1+ H Negative Urine Blood 1+ H Negative /uL Urine Nitrite Negative Negative Urine Bilirubin Negative Negative Urine Urobilinogen Normal Negative mg/dL Urine Leukocyte Esterase Trace Negative /uL Urine RBC 5 0 - 3 /hpf Urine WBC 19 0 - 3 /hpf Urine Squamous Epithelial Cells Few <5 /hpf Urine Bacteria None seen None Seen /hpf Urine Glucose 4+ H Normal mg/dL Test 04/24/24 17:13 Range/Units Beta-Hydroxybutyric Acid 1.778 H < 0.4 mmol/L Knee x-ray reviewed and demonstrated: There appears to be a nondisplaced fractu res through the medial tibial plateau with a moderate joint effusion. Knee CT scan reviewed demonstrated: Nondisplaced fracture through the medial tibial plateau. Numerous small bubbles of gas in the soft tissues of the left knee consistent with infection. Assessment Left knee tibial plateau fracture Plan/Recommendation I had a lengthy discussion with the patient and after discussing his case and reviewing his imaging studies with Dr. Adams we have recommended an IR guided left knee aspiration and fluid analysis with CBC and cultures to rule out any septic knee. Continue conservative treatment in the meantime and remain nonweightbearing. We will reconvene with the patient once the aspiration and analysis have been completed to review the results and determine the course of action. Plan discussed with: Patient SAUCEDO,JENREAL RIDDLE Apr 26, 2024 12:31
--- NOTE | 2024-04-26 13:17 | DVHPN2 ---
Subjective Patient reporting generalized weakness and severe pain to left knee Reviewed: Care Plan, H&P, Labs, Medications, Previous Orders Changes from previous H/P or p: No Changes General: Per HPI Eyes: No Pain, No Vision change, No Conjunctivae inflammation, No Eyelid inflammation, No Other, No Redness ENT: No Ear pain, No Ear discharge, No Nose pain, No Nose discharge, No Nose congestion, No Mouth pain, No Mouth swelling, No Throat pain, No Throat swelling, No Other Cardiovascular: No Chest Pain, No Palpitations, No Orthopnea, No Paroxysmal Noc. Dyspnea, No Edema, No Lt Headedness, No Other Respiratory: No Cough, No Dry, No Shortness of breath, No SOB with excertion, No Wheezing, No Hemoptysis, No Pleuritic Pain, No Sputum, No Other Gastrointestinal: No Nausea, No Vomiting, No Abdominal Pain, No Diarrhea, No Constipation, No Melena, No Hematochezia, No Other Genitourinary: No Dysuria, No Frequency, No Incontinence, No Hematuria, No Retention, No Other Musculoskeletal: No other, No neck pain, No shoulder pain, No arm pain, No back pain, No hand pain, No leg pain, No foot pain Skin: No Rash, No Lesions, No Jaundice, No Bruising, No Other Objective Vitals Vital Signs Date Time Temp Pulse Resp B/P (MAP) Pulse Ox O2 Delivery O2 Flow Rate FiO2 04/26/24 09:26 83 14 149/58 04/26/24 09:00 98.3 95 98.3 04/26/24 08:10 Room Air* 0 21 Intake/Output Intake and Output 04/26/24 07:00 Intake Total 2300 ml Output Total 550 ml Balance 1750 ml Intake Oral 500 ml IV Total 1800 ml Output Urine Total 550 ml General Appearance: Alert, Oriented X3, Cooperative HEENT: Atraumatic, PERRLA Lungs: Clear to auscultation, Normal air movement Cardiovascular: Normal S1, Normal S2 Extremities: Other (Dressing to left lower extremity dry and intact.) Neuro: Sensation intact Skin: Dry, Intact Psych/Mental Status: Mental status NL, Mood NL Medications Current Medications Medications Dose Ordered Sig/Sunny Route Start Time Stop Time Status Last Admin Dose Admin Tamsulosin HCl 0.4 mg DAILY PO 04/25/24 10:00 04/26/24 10:23 0.4 MG Sodium Chloride 1,000 ml @ 100 mls/hr Q10H IV 04/24/24 22:15 04/26/24 05:21 100 MLS/HR Lorazepam 0.5 mg Q6HP PRN PO 04/24/24 22:15 Al Hydrox/Mg Hydrox/Simethicone 30 ml Q6HP PRN PO 04/24/24 22:15 Docusate Sodium 100 mg BIDPRN PRN PO 04/24/24 22:15 Acetaminophen 650 mg Q6HP PRN PO 04/24/24 22:15 04/25/24 23:44 650 MG Temazepam 15 mg QHSP PRN PO 04/24/24 22:15 Ondansetron HCl 4 mg Q4HP PRN IV 04/24/24 22:15 Morphine Sulfate 2 mg Q4HPRN PRN IV 04/24/24 22:15 04/26/24 08:56 2 MG Enoxaparin Sodium 30 mg DAILY SC 04/25/24 10:00 UNV Diagnostic Test (Pha) 1 strip IQ4HR 04/25/24 00:00 04/26/24 08:44 1 STRIP Insulin Human Regular IQ4HR SC 04/25/24 00:00 04/26/24 08:43 8 UNITS Dextrose 50 ml UD PRN IV 04/24/24 22:15 Enoxaparin Sodium 40 mg DAILY SC 04/25/24 10:00 04/26/24 10:23 40 MG Oxycodone/ Acetaminophen 2 tab Q6HP PRN PO 04/25/24 12:00 04/26/24 11:13 2 TAB Linezolid 300 ml @ 150 mls/hr Q12H IV 04/25/24 20:00 04/26/24 08:23 150 MLS/HR Piperacillin Sod/ Tazobactam Sod 100 ml @ 25 mls/hr Q8H IV 04/25/24 23:30 04/26/24 11:11 25 MLS/HR Laboratory Results Laboratory Tests 04/26/24 00:45 Chemistry Test 04/26/24 00:45 Albumin 3.0 g/dL (3.2-4.8) L Calcium Level 8.3 mg/dL (8.7-10.4) L Total Protein 6.0 g/dL (5.7-8.2) Coagulation Test 04/26/24 00:45 Prothrombin Time 11.0 sec (9.3-11.8) Prothrombin Time INR 1.04 (0.9-1.15) Activated Partial Thromboplast Time 33.9 SEC (24.5-34.5) Cardiac Markers Test 04/26/24 00:45 B-Type Natriuretic Peptide 119.63 pg/mL (0-100) LFT Test 04/26/24 00:45 Alanine Aminotransferase (ALT) 20 U/L (7-40) Alkaline Phosphatase 107 U/L (46-116) Aspartate Amino Transferase (AST) 66 U/L (13-40) H Total Bilirubin 0.6 mg/dL (0.2-1.0) Urinalysis Test 04/24/24 17:25 Urine Color Light-yellow (Yellow) Urine Clarity Clear (Clear) Urine pH 5.5 (5.0-9.0) Urine Specific [place] 1.031 (1.001-1.035) Urine Protein 1+ (Negative) H Urine Ketones 1+ (Negative) H Urine Blood 1+ /uL (Negative) H Urine Nitrite Negative (Negative) Urine Bilirubin Negative (Negative) Urine Urobilinogen Normal mg/dL (Negative) Urine Leukocyte Esterase Trace /uL (Negative) Urine RBC 5 /hpf (0 - 3) Urine WBC 19 /hpf (0 - 3) Urine Squamous Epithelial Cells Few /hpf (<5) Urine Bacteria None seen /hpf (None Seen) Urine Glucose 4+ mg/dL (Normal) H Microbiology Microbiology Date/Time Source Procedure Growth Status 04/25/24 13:00 Blood Blood Culture - Preliminary NO GROWTH AFTER 24 HOURS OF INCUBATION. 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 CT scan of the knee reviewed. Discussed findings with orthopedic surgeon. White blood cell count improving. Cardiology consultation placed. Discussed ICD interrogation with pacemaker rep, no arrhythmias in the past month. Carotid Doppler study without flow-limiting stenosis. Echocardiogram reviewed. -radiology consultation for knee aspiration. If fluid is noted to be infected, plans for surgery tomorrow. -cardiology consultation -orthopedic surgery consultation -antibiotic therapy: Zosyn, Zyvox -PUD, DVT prophylaxis -blood cultures: Pending -continue regular insulin sliding scale, aggressive scale -repeat labs in a.m. Total time spent with patient discussing and formulating plan of care: 35 minutes. This medical document was created using an electronic medical record system with [employer] dictation system. Although this document has been carefully reviewed, there may still be some phonetic and typographical errors. These areas are purely typographical due to imperfections of the software programs, and do not reflect any compromise in the patient's medical care. Plan discussed with: Patient, Other (RN) My Orders Orders - XOCHITL GRAY NP Procedure Category Date Status Time Piperacillin-Tazob PHA 04/25/24 In Process 3.375gm (Zosyn 3.375g 23:30 *[facility] CONS 04/26/24 Transmitted -[place] 12:05 * Radiologist Consult CONS 04/26/24 Transmitted 13:09 Sodium Chloride 0.9% PHA 04/26/24 Transmitted 13:15 Hydromorphone PHA 04/26/24 Transmitted Injection (Dilaudid 13:15 Date of Service: Apr 26, 2024 Billing Provider: XOCHITL GRAY NP Common Visit Codes: [id number] INP/OBS CARE(HIGH) XOCHITL GRAY NP Apr 26, 2024 13:17
--- NOTE | 2024-04-26 14:10 | DVH ---
Exam: US LEFT LOWER EXTREMITY ULTRASOUN Date: 04/26/2024 01:40 PM Clinical History: FLUID CHECK FOR POSSIBLE LEFT KNEE ASPIRATION Comparison: None Technique: Targeted sonographic evaluation of the soft tissues of the left knee was obtained utilizing grayscale and color Doppler imaging. Findings/Impression: Large left knee joint effusion containing debris.
--- NOTE | 2024-04-26 16:04 | DVH ---
US US GUIDANCE FOR NEEDLE PLACEME, HISTORY: LT KNEE JOINT ASPIRATION PROCEDURE: An informed consent was obtained. The patient was placed supine on the gurney. The left kn ee fluid collection was localized with ultrasound and the overlying skin prepped with chlorhexidine w hich was allowed to dry and draped in the usual sterile fashion. Time out was performed and infiltrat ed with 1% Xylocaine. With US guidance, 19-gauge centesis needle catheter was advanced into the fluid collection. Approximately 20 cc of thick sanguinous fluid was aspirated. No immediate complication was identified. FINDINGS: Limited US scan of through the left knee demonstrates a fluid collection in the joint space with debris. Collection appears to contain debris. IMPRESSION: US guided left knee arthrocentesis with 20 mL of bloody fluid aspirated for fluid analysis.
--- NOTE | 2024-04-26 16:32 | DVHCONRES ---
Date Seen: Apr 26, 2024 Resident Creating Document: WANDY DE LA O RESIDENT Referring Physician Raffy HAAS Reason for Consultation MESERET History of Present Illness Patient is 63-year-old male with past medical history of diabetes mellitus on insulin, heart failure reduced ejection fraction, status post CABG, AICD, PTCA, bilateral foot amputation who brought to the hospital due to worsening left knee pain after he had mechanical fall landed on both knees and started having swelling and pain mainly on the left-sided. Patient denied any other complaints. Patient otherwise feeling well denying other symptoms including chest pain, shortness of breath, fever, chills, any other symptoms. Nephrology consultation was done for worsening kidney function. Past Medical History diabetes mellitus on insulin, heart failure reduced ejection fraction, status post CABG, AICD, PTCA, bilateral foot amputation Past Surgical History Bilateral toe amputation CABG PTCA Family History: Diabetes mellitus G8 MOTHER FHx: kidney disease G8 MOTHER Social History Former smoker smoked cigarettes greater than 30 years Alcohol abuse, last drink four weeks ago History of methamphetamine use Chronic opioid use: Mainly marijuana for chronic back pain. Allergies: Coded Allergies: Hydrocodone (Verified Allergy, Severe, LEG SWELLING, 04/25/24) Codeine (Verified Allergy, Unknown, 04/24/24) Ketorolac Tromethamine (Verified Allergy, Unknown, 04/03/24) Home Meds Active Scripts Ibuprofen Micronized (Ibuprofen) 600 Mg Tab, 600 MG PO BID for 7 Days, #14 TAB Prov:TAMMY ANNE MD 04/07/24 Oxycodone HCl (Oxycodone Hydrochloride) 10 Mg Tab, 10 MG PO TIDPRN PRN for 7 Days, #21 TAB Prov:TAMMY ANNE MD 04/07/24 Oxycodone Hcl (OxyCONTIN ER Tablet) 10 Mg Tb, 1 TAB PO BID for 7 Days, #14 TAB 0 Refills Prov:TAMMY ANNE MD 04/07/24 Tamsulosin Hcl (Flomax) 0.4 Mg Cap, 0.4 MG PO QPM for 30 Days, #30 CAP 0 Refills Prov:TAMMY ANNE MD 04/07/24 Baclofen (Baclofen) 10 Mg Tab, 5 MG PO Q8HR for 30 Days, #45 TAB 0 Refills Prov:TAMMY ANNE MD 04/07/24 Reported Medications Tamsulosin HCl (Tamsulosin Hydrochloride) 0.4 Mg Cap, 0.4 MG PO, CAP 04/04/24 Current Medications Current Medications Medications (Trade) Dose Ordered Sig/Sunny Route PRN Reason Start Time Stop Time Status Last Admin Linezolid 300 ml @ 150 mls/hr Q12H IV 04/25/24 20:00 04/26/24 08:23 Piperacillin Sod/ Tazobactam Sod 100 ml @ 25 mls/hr Q8H IV 04/25/24 23:30 04/26/24 11:11 Sodium Chloride 1,000 ml @ 75 mls/hr [id number] IV 04/26/24 13:15 Hydromorphone HCl (Dilaudid Injection) 0.5 mg Q4HPRN PRN IV SEVERE PAIN (7-10 PAIN SCALE) 04/26/24 13:15 Review of Systems Patient is complaining of left knee pain, complaining of mild shortness of breath as well. No other complaints at this point. Eyes: No Pain, No Vision change, No Conjunctivae inflammation, No Eyelid inflammation, No Other, No Redness ENT: No Ear pain, No Ear discharge, No Nose pain, No Nose discharge, No Nose congestion, No Mouth pain, No Mouth swelling, No Throat pain, No Throat swelling, No Other Cardiovascular: No Chest Pain, No Palpitations, No Orthopnea, No Paroxysmal Noc. Dyspnea, No Edema, No Lt Headedness, No Other Respiratory: No Cough, No Dry, No Shortness of breath, No SOB with excertion, No Wheezing, No Hemoptysis, No Pleuritic Pain, No Sputum, No Other Gastrointestinal: No Nausea, No Vomiting, No Abdominal Pain, No Diarrhea, No Constipation, No Melena, No Hematochezia, No Other Genitourinary: No Dysuria, No Frequency, No Incontinence, No Hematuria, No Retention, No Other Musculoskeletal: No other, No neck pain, No shoulder pain, No arm pain, No back pain, No hand pain, leg pain, No foot pain Skin: No Rash, No Lesions, No Jaundice, No Bruising, No Other Vital Signs Vital Signs Date Time Temp Pulse Resp B/P (MAP) Pulse Ox O2 Delivery O2 Flow Rate FiO2 04/26/24 13:00 101.2 80 21 149/58 (88) 95 101.2 04/26/24 08:10 Room Air* 0 21 Physical Exam General Appearance: Cooperative. Well developed. In mild distress. Head Exam: Normal inspection Neck Exam: Normal inspection. Non-tender. Normal alignment Pulmonary/Respiratory: Chest non-tender. Clear bilateral breath sounds Cardiovascular/Chest: Presence of foreign device likely AICD in left upper part of chest, Regular rate and rhythm. No murmurs. No JVD. Peripheral Pulses: 2+ Radial (R). 2+ Radial (L). Abdominal Exam: Normal bowel sounds. Soft. Nontender. No hepatospenomegaly. No masses Ankle Exam: Left knee mildly swollen, elevated temperature, underwent exploration. Bilateral foot amputation. Lower extremities: Negative lower extremity edema Neuro/Mental Status: A&O x4. Coherent Labs/Diagnostic Data Labs Test 04/26/24 03:35 04/26/24 00:45 04/25/24 13:00 04/25/24 12:04 Range/Units POC Glucose 239 H 70-106 mg/dl White Blood Count 11.2 H 4.4-10.8 10^3/uL Red Blood Count 3.26 L 4.5-5.90 10^6/uL Hemoglobin 8.0 L 13.5-17.5 g/dL Hematocrit 26.3 L 41.0-53.0 % Mean Corpuscular Volume 80.8 80.0-100.0 fL Mean Corpuscular Hemoglobin 24.7 L 28.0-32.0 pg Mean Corpuscular Hemoglobin Concent 30.6 L 32.0-36.0 g/dL Red Cell Distribution Width 19.7 H 11.8-14.3 % Platelet Count 183 140-450 10^3/uL Mean Platelet Volume 9.0 6.9-10.8 fL Neutrophils (%) (Auto) 89.3 H 37.0-80.0 % Lymphocytes (%) (Auto) 3.8 L 10.0-50.0 % Monocytes (%) (Auto) 5.8 0.0-12.0 % Eosinophils (%) (Auto) 0.7 0.0-7.0 % Basophils (%) (Auto) 0.4 0.0-2.0 % Neutrophils # (Auto) 10.0 H 1.6-8.6 10 ^3/uL Lymphocytes # (Auto) 0.4 0.4-5.4 10 ^3/uL Monocytes # (Auto) 0.7 0-1.3 10 ^3/uL Eosinophils # (Auto) 0.1 0-0.8 10 ^3/uL Basophils # (Auto) 0 0-0.2 10 ^3/uL Nucleated Red Blood Cells 0.0 % Prothrombin Time 11.0 9.3-11.8 sec Prothrombin Time INR 1.04 0.9-1.15 Activated Partial Thromboplast Time 33.9 24.5-34.5 SEC Sodium Level 135 L 136-145 mmol/L Potassium Level 3.8 3.5-5.1 mmol/L Chloride Level 108 H 98-107 mmol/L Carbon Dioxide Level 17 L 20-31 mmol/L Anion Gap 10 5-15 Blood Urea Nitrogen 38 H 9-23 mg/dL Creatinine 1.94 H 0.700-1.30 mg/dL Glomerular Filtration Rate Calc 38 >90 mL/min BUN/Creatinine Ratio 19.6 10.0-20.0 Serum Glucose 231 H 74-106 mg/dL Lactic Acid Level 2.3 *H 0.4-2.0 mmol/L Calcium Level 8.3 L 8.7-10.4 mg/dL Total Bilirubin 0.6 0.2-1.0 mg/dL Aspartate Amino Transferase (AST) 66 H 13-40 U/L Alanine Aminotransferase (ALT) 20 7-40 U/L Alkaline Phosphatase 107 46-116 U/L B-Type Natriuretic Peptide 119.63 0-100 pg/mL Total Protein 6.0 5.7-8.2 g/dL Albumin 3.0 L 3.2-4.8 g/dL Hemoglobin A1c 8.9 H <5.7 % A1C Urine Opiates Screen Pos NEGATIVE Urine Fentanyl Screen Neg NEGATIVE Urine Barbiturates Screen Neg NEGATIVE Urine Phencyclidine Screen Neg NEGATIVE Urine Amphetamines Screen Neg NEGATIVE Urine Benzodiazepines Screen Neg NEGATIVE Urine Cocaine Screen Neg NEGATIVE Urine Cannabinoids Screen Neg NEGATIVE Test 04/25/24 03:18 04/24/24 18:03 04/24/24 17:50 04/24/24 17:25 Range/Units Erythrocyte Sedimentation Rate 92 H 0-20 mm/hr Magnesium Level 2.3 1.6-2.6 mg/dL Iron Level 9 L 65-175 ug/dL Total Iron Binding Capacity 214 L 250-425 ug/dL Percent Iron Saturation 4.2 L 20-55 % Triglycerides Level 132 < 150 mg/dL Cholesterol Level 75 < 200 mg/dL LDL Cholesterol 31 < 100 mg/dL HDL Cholesterol 12 L 40-59 mg/dL Troponin I High Sensitivity 5 </=54 ng/L Blood Gas Specimen Type Arterial Blood Gas Sample Site Right radial Blood Gas Patient Temperature 37.0 Arterial Blood Date Drawn [id number] Arterial Blood pH 7.418 7.350-7.450 Arterial Blood Partial Pressure CO2 26.7 L 35.0-48.0 mmHg Arterial Blood Partial Pressure O2 57.0 L 83.0-108.0 mmHg Arterial Blood HCO3 16.9 L 21.0-28.0 mmol/L Arterial Blood Oxygen Saturation 87.1 L 94.0-98.0 % Arterial Blood Base Excess -6.4 L -2.0-3.0 mmol/L Arterial Blood Oxyhemoglobin 85.8 L 94.0-98.0 % Arterial Blood Carboxyhemoglobin 1.3 0.5-1.5 % Arterial Blood Methemoglobin 0.2 0.0-1.5 % Mario Test Yes Blood Gas Total Hemoglobin 10.60 L 13.5-17.5 g/dL Blood Gas Modality Room air FiO2 % 21.0 Urine Color Light-yellow Yellow Urine Clarity Clear Clear Urine pH 5.5 5.0-9.0 Urine Specific [place] 1.031 1.001-1.035 Urine Protein 1+ H Negative Urine Ketones 1+ H Negative Urine Blood 1+ H Negative /uL Urine Nitrite Negative Negative Urine Bilirubin Negative Negative Urine Urobilinogen Normal Negative mg/dL Urine Leukocyte Esterase Trace Negative /uL Urine RBC 5 0 - 3 /hpf Urine WBC 19 0 - 3 /hpf Urine Squamous Epithelial Cells Few <5 /hpf Urine Bacteria None seen None Seen /hpf Urine Glucose 4+ H Normal mg/dL Test 04/24/24 17:13 Range/Units Beta-Hydroxybutyric Acid 1.778 H < 0.4 mmol/L Microbiology Date/Time Source Procedure Growth Status 04/25/24 13:00 Blood Blood Culture - Preliminary Resulted 04/25/24 12:08 Nose MRSA Screen - Final Complete Assessment Septic arthritis MESERET likely hemodynamically mediated Acute on chronic HFrEF Diabetes mellitus type 2 insulin-dependent Iron-deficiency anemia Chronic opiate use mainly morphine History of meth use Former smoker, smoked greater than 30 years. History of alcohol use History of CABG with AICD placement. History of coronary artery disease with PTCA placement Plan/recommendation: : Charmaine -continue IV fluid normal saline 75 mL/hour, repeat chest x-ray for possible vascular congestion. -ordered renal ultrasound -ordered urine sodium, urine creatinine, urine protein. -strict I&O -avoid nephrotoxic drugs -echocardiogram revealed ejection fraction 40%, follow cardiology recommendation if needed. -rigors diabetic control: Per patient he is on insulin. -recommend iron replacement for severe iron-deficiency anemia Time spent greater than 78 minutes, major to be time spent [id number] interaction. Thank you for consultation. Addendum Patient seen and examined, plan discussed with resident. Agree with above, we will follow closely Plan discussed with: Patient, Other (RN) WANDY DE LA O Apr 26, 2024 16:32 GUY SALMERON MD Apr 27, 2024 18:38
--- NOTE | 2024-04-26 17:05 | DVH ---
EXAM: US KIDNEY INDICATION: gerhard TECHNIQUE: Multiple real-time sonographic images of the kidneys and bladder were obtained. COMPARISON: None Findings: Technically difficult exam due to patient's mobility. Right kidney measures 9.3 cm with normal contours, echotexture, and cortical thickness. No evidence o f hydronephrosis, calculi, cystic or solid lesions. Left kidney measures 10.7 cm with normal contours, echotexture, and cortical thickness. No evidence o f hydronephrosis, calculi, cystic or solid lesions. Urinary bladder is unremarkable without evidence of abnormal wall thickening, mass, or calculi. Prevo id volume 134 mL. Postvoid volume was not obtained. Impression: 1. Unremarkable sonographic study of the bilateral kidneys and urinary bladder.
[2024-04-26] MEDS: HYDROmorphone HCL 2 MG/ML VL/or syr IV PRN (17:12)
[2024-04-26] MEDS: SODIUM CHLORIDE 0.9% 1,000 ML IV SCH (17:13)
--- NOTE | 2024-04-26 18:46 | DVHINCON2 ---
Date of service: Apr 26, 2024 History of Present Illness 63 yo fell at home several days ago hurting his leg mostly around the knee with complaints of swelling and pain that showed to increase over time making it more and more difficult to ambulate on ed evaluation for trauma patient was also noted to have severely uncontrolled dm which also needed managment and patient was recommended for admission from the ed Cardiovascular: CAD Endocrine: Diabetes Review of Systems Review of Systems Constitutional: No: Fever, Chills, Sweats, Weakness, Malaise, Other Eyes: No: Pain, Vision change, Conjunctivae inflammation, Eyelid inflammation, Other, Redness ENT: No: Ear pain, Ear discharge, Nose pain, Nose discharge, Nose congestion, Mouth pain, Mouth swelling, Throat pain, Throat swelling, Other Respiratory: No: Cough, Dry, Shortness of breath, SOB with excertion, Wheezing, Hemoptysis, Pleuritic Pain, Sputum, Wheezing, Other Cardiovascular: No: Chest Pain, Palpitations, Orthopnea, Paroxysmal Noc. Dyspnea, Edema, Lt Headedness, Other Gastrointestinal: No: Nausea, Vomiting, Abdominal Pain, Diarrhea, Constipation, Melena, Hematochezia, Other Genitourinary: No Dysuria, No Frequency, No Incontinence, No Hematuria, No Retention, No Other Musculoskeletal: No: other, neck pain, shoulder pain, arm pain, back pain, hand pain, leg pain, foot pain Skin: No: Rash, Lesions, Jaundice, Bruising, Other Neurological: No: Weakness, Numbness, Incoordination, Change in speech, Confusion, Seizures, Other Allergies: Coded Allergies: Codeine (Verified Allergy, Unknown, 04/24/24) Ketorolac Tromethamine (Verified Allergy, Unknown, 04/03/24) Past Medical History reviewed Family History: Diabetes mellitus G8 MOTHER FHx: kidney disease G8 MOTHER Allergies: Coded Allergies: Hydrocodone (Verified Allergy, Severe, LEG SWELLING, 04/25/24) Codeine (Verified Allergy, Unknown, 04/24/24) Ketorolac Tromethamine (Verified Allergy, Unknown, 04/03/24) Home Meds Active Scripts Ibuprofen Micronized (Ibuprofen) 600 Mg Tab, 600 MG PO BID for 7 Days, #14 TAB Prov:TAMMY ANNE MD 04/07/24 Oxycodone HCl (Oxycodone Hydrochloride) 10 Mg Tab, 10 MG PO TIDPRN PRN for 7 Days, #21 TAB Prov:TAMMY ANNE MD 04/07/24 Oxycodone Hcl (OxyCONTIN ER Tablet) 10 Mg Tb, 1 TAB PO BID for 7 Days, #14 TAB 0 Refills Prov:TAMMY ANNE MD 04/07/24 Tamsulosin Hcl (Flomax) 0.4 Mg Cap, 0.4 MG PO QPM for 30 Days, #30 CAP 0 Refills Prov:TAMMY ANNE MD 04/07/24 Baclofen (Baclofen) 10 Mg Tab, 5 MG PO Q8HR for 30 Days, #45 TAB 0 Refills Prov:TAMMY ANNE MD 04/07/24 Reported Medications Tamsulosin HCl (Tamsulosin Hydrochloride) 0.4 Mg Cap, 0.4 MG PO, CAP 04/04/24 Current Medications Current Medications Medications (Trade) Dose Ordered Sig/Sunny Route PRN Reason Start Time Stop Time Status Last Admin Linezolid 300 ml @ 150 mls/hr Q12H IV 04/25/24 20:00 04/26/24 08:23 Piperacillin Sod/ Tazobactam Sod 100 ml @ 25 mls/hr Q8H IV 04/25/24 23:30 04/26/24 17:12 Sodium Chloride 1,000 ml @ 75 mls/hr [id number] IV 04/26/24 13:15 04/26/24 17:13 Hydromorphone HCl (Dilaudid Injection) 0.5 mg Q4HPRN PRN IV SEVERE PAIN (7-10 PAIN SCALE) 04/26/24 13:15 04/26/24 17:12 Review of Systems 10 pt ros otherwise negative Vital Signs Vital Signs Date Time Temp Pulse Resp B/P (MAP) Pulse Ox O2 Delivery O2 Flow Rate FiO2 04/26/24 17:12 77 23 101/63 04/26/24 17:00 100.4 97 100.4 04/26/24 08:10 Room Air* 0 21 Physical Exam nad s1 s2 rrr ctab soft nt/nd no edema Labs/Diagnostic Data Labs Test 04/26/24 03:35 04/26/24 00:45 04/25/24 13:00 04/25/24 12:04 Range/Units POC Glucose 239 H 70-106 mg/dl White Blood Count 11.2 H 4.4-10.8 10^3/uL Red Blood Count 3.26 L 4.5-5.90 10^6/uL Hemoglobin 8.0 L 13.5-17.5 g/dL Hematocrit 26.3 L 41.0-53.0 % Mean Corpuscular Volume 80.8 80.0-100.0 fL Mean Corpuscular Hemoglobin 24.7 L 28.0-32.0 pg Mean Corpuscular Hemoglobin Concent 30.6 L 32.0-36.0 g/dL Red Cell Distribution Width 19.7 H 11.8-14.3 % Platelet Count 183 140-450 10^3/uL Mean Platelet Volume 9.0 6.9-10.8 fL Neutrophils (%) (Auto) 89.3 H 37.0-80.0 % Lymphocytes (%) (Auto) 3.8 L 10.0-50.0 % Monocytes (%) (Auto) 5.8 0.0-12.0 % Eosinophils (%) (Auto) 0.7 0.0-7.0 % Basophils (%) (Auto) 0.4 0.0-2.0 % Neutrophils # (Auto) 10.0 H 1.6-8.6 10 ^3/uL Lymphocytes # (Auto) 0.4 0.4-5.4 10 ^3/uL Monocytes # (Auto) 0.7 0-1.3 10 ^3/uL Eosinophils # (Auto) 0.1 0-0.8 10 ^3/uL Basophils # (Auto) 0 0-0.2 10 ^3/uL Nucleated Red Blood Cells 0.0 % Prothrombin Time 11.0 9.3-11.8 sec Prothrombin Time INR 1.04 0.9-1.15 Activated Partial Thromboplast Time 33.9 24.5-34.5 SEC Sodium Level 135 L 136-145 mmol/L Potassium Level 3.8 3.5-5.1 mmol/L Chloride Level 108 H 98-107 mmol/L Carbon Dioxide Level 17 L 20-31 mmol/L Anion Gap 10 5-15 Blood Urea Nitrogen 38 H 9-23 mg/dL Creatinine 1.94 H 0.700-1.30 mg/dL Glomerular Filtration Rate Calc 38 >90 mL/min BUN/Creatinine Ratio 19.6 10.0-20.0 Serum Glucose 231 H 74-106 mg/dL Lactic Acid Level 2.3 *H 0.4-2.0 mmol/L Calcium Level 8.3 L 8.7-10.4 mg/dL Total Bilirubin 0.6 0.2-1.0 mg/dL Aspartate Amino Transferase (AST) 66 H 13-40 U/L Alanine Aminotransferase (ALT) 20 7-40 U/L Alkaline Phosphatase 107 46-116 U/L B-Type Natriuretic Peptide 119.63 0-100 pg/mL Total Protein 6.0 5.7-8.2 g/dL Albumin 3.0 L 3.2-4.8 g/dL Hemoglobin A1c 8.9 H <5.7 % A1C Urine Opiates Screen Pos NEGATIVE Urine Fentanyl Screen Neg NEGATIVE Urine Barbiturates Screen Neg NEGATIVE Urine Phencyclidine Screen Neg NEGATIVE Urine Amphetamines Screen Neg NEGATIVE Urine Benzodiazepines Screen Neg NEGATIVE Urine Cocaine Screen Neg NEGATIVE Urine Cannabinoids Screen Neg NEGATIVE Test 04/25/24 03:18 04/24/24 18:03 04/24/24 17:50 04/24/24 17:25 Range/Units Erythrocyte Sedimentation Rate 92 H 0-20 mm/hr Magnesium Level 2.3 1.6-2.6 mg/dL Iron Level 9 L 65-175 ug/dL Total Iron Binding Capacity 214 L 250-425 ug/dL Percent Iron Saturation 4.2 L 20-55 % Triglycerides Level 132 < 150 mg/dL Cholesterol Level 75 < 200 mg/dL LDL Cholesterol 31 < 100 mg/dL HDL Cholesterol 12 L 40-59 mg/dL Troponin I High Sensitivity 5 </=54 ng/L Blood Gas Specimen Type Arterial Blood Gas Sample Site Right radial Blood Gas Patient Temperature 37.0 Arterial Blood Date Drawn [id number] Arterial Blood pH 7.418 7.350-7.450 Arterial Blood Partial Pressure CO2 26.7 L 35.0-48.0 mmHg Arterial Blood Partial Pressure O2 57.0 L 83.0-108.0 mmHg Arterial Blood HCO3 16.9 L 21.0-28.0 mmol/L Arterial Blood Oxygen Saturation 87.1 L 94.0-98.0 % Arterial Blood Base Excess -6.4 L -2.0-3.0 mmol/L Arterial Blood Oxyhemoglobin 85.8 L 94.0-98.0 % Arterial Blood Carboxyhemoglobin 1.3 0.5-1.5 % Arterial Blood Methemoglobin 0.2 0.0-1.5 % Mario Test Yes Blood Gas Total Hemoglobin 10.60 L 13.5-17.5 g/dL Blood Gas Modality Room air FiO2 % 21.0 Urine Color Light-yellow Yellow Urine Clarity Clear Clear Urine pH 5.5 5.0-9.0 Urine Specific [place] 1.031 1.001-1.035 Urine Protein 1+ H Negative Urine Ketones 1+ H Negative Urine Blood 1+ H Negative /uL Urine Nitrite Negative Negative Urine Bilirubin Negative Negative Urine Urobilinogen Normal Negative mg/dL Urine Leukocyte Esterase Trace Negative /uL Urine RBC 5 0 - 3 /hpf Urine WBC 19 0 - 3 /hpf Urine Squamous Epithelial Cells Few <5 /hpf Urine Bacteria None seen None Seen /hpf Urine Glucose 4+ H Normal mg/dL Test 04/24/24 17:13 Range/Units Beta-Hydroxybutyric Acid 1.778 H < 0.4 mmol/L Microbiology Date/Time Source Procedure Growth Status 04/25/24 13:00 Blood Blood Culture - Preliminary Resulted 04/25/24 12:08 Nose MRSA Screen - Final Complete Assessment cad chf infected knee dm IDDM ckd Plan/Recommendation fu ortho recs asa, statin hx of 9 stents per patient but hes a poor historian IDDM if surgery needed, plan for preop stress mpi Plan discussed with: Patient JP PAGE MD Apr 26, 2024 18:46
--- NOTE | 2024-04-26 19:37 | DVH ---
CHEST RADIOGRAPH Indication: On via NC Technique: Single frontal view of the chest was obtained Comparison: XY CHEST PORTABLE on DOS: 04/24/24, XY CHEST PORTABLE on DOS: 04/03/24, XY CHEST PORTABLE on DOS: 04/24/24 FINDINGS: Lines and Tubes: None Lungs: No focal consolidation. Pleura: No effusion. No pneumothorax. Cardiomediastinal contours: Unremarkable Bones: No acute osseous abnormality. IMPRESSION: 1. Left-sided cardiac device with intact leads. Mild cardiomegaly. Low lung volumes with mild bronch ovascular crowding. No focal consolidation or pneumothorax. No pleural effusions. 1.
[2024-04-27] VITALS (8 sets, daily range): BP systolic 102–130; BP diastolic 43–53; PULSE 77–87; RESP 16–18; TEMP 97.3–100.5; O2SAT 89–97
[2024-04-27] MEDS: TEMAZEPAM 15 MG CAP PO PRN (01:14)
[2024-04-27 06:38] LABS: Alanine Aminotransferase 23 U/L (7-40); Alkaline Phosphatase 104 U/L (46-116); Anion Gap 8 (5-15); Aspartate Aminotransferase 55 U/L (13-40); Blood Urea Nitrogen 33 mg/dL (9-23); Calcium 8.3 mg/dL (8.7-10.4); Carbon Dioxide 22 mmol/L (20-31); Chloride 107 mmol/L (98-107); Glucose 175 mg/dL (74-106); Magnesium 2.3 mg/dL (1.6-2.6); Potassium 4.1 mmol/L (3.5-5.1); Sodium 137 mmol/L (136-145)
[2024-04-27 06:39] LABS: Bilirubin, Total 0.7 mg/dL (0.2-1.0); Phosphorus 2.6 mg/dL (2.4-5.1); Total Protein 6.1 g/dL (5.7-8.2)
[2024-04-27 08:31] LABS: Basophils # (auto) 0 10 ^3/uL (0-0.2); Monocytes # (auto) 0.7 10 ^3/uL (0-1.3); White Blood Cell 11.9 10^3/uL (4.4-10.8)
[2024-04-27 08:35] LABS: Basophils % (auto) 0.4 % (0.0-2.0); Eosinophils # (auto) 0.1 10 ^3/uL (0-0.8); Eosinophils % (auto) 1.2 % (0.0-7.0); Hematocrit 25.2 % (41.0-53.0); Lymphocytes # (auto) 0.4 10 ^3/uL (0.4-5.4); Lymphocytes % (auto) 3.7 % (10.0-50.0); Mean Corpuscular Hemoglobin 24.9 pg (28.0-32.0); Mean Corpuscular Hgb Conc. 31.6 g/dL (32.0-36.0); Mean Corpuscular Volume 78.8 fL (80.0-100.0); Monocytes % (auto) 5.6 % (0.0-12.0); Neutrophils # (auto) 10.6 10 ^3/uL (1.6-8.6); Neutrophils % (auto) 89.1 % (37.0-80.0); Nucleated Red Blood Cells % 0.1 %; Platelet Count (auto) 175 10^3/uL (140-450); Red Cell Distribution Width 19.3 % (11.8-14.3)
--- NOTE | 2024-04-27 11:20 | DVHPN2 ---
Progress Note - Dictate Date Seen: Apr 27, 2024 Medical Necessity Reason Pt with a Central, PICC or Fol: No Subjective Patient was lying comfortably in bed during my evaluation and reports continued severe knee pain without any improvement. He has remained in bed and denied any other complaints or concerns during my evaluation. vital signs Vital Sign Date Time Temp Pulse Resp B/P (MAP) Pulse Ox O2 Delivery O2 Flow Rate FiO2 04/27/24 08:56 86 12 134/55 04/27/24 08:10 Nasal Cannula* 3 32 04/27/24 05:00 97.3 95 97.3 Total Intake and Output 04/26/24 04/26/24 04/27/24 15:00 23:00 07:00 Intake Total 300 ml 350 ml 900 ml Balance 300 ml 350 ml 900 ml medications Current Medications Medications Dose Ordered Sig/Sunny Route Start Time Stop Time Status Last Admin Dose Admin Tamsulosin HCl 0.4 mg DAILY PO 04/25/24 10:00 04/27/24 10:44 0.4 MG Lorazepam 0.5 mg Q6HP PRN PO 04/24/24 22:15 Al Hydrox/Mg Hydrox/Simethicone 30 ml Q6HP PRN PO 04/24/24 22:15 Docusate Sodium 100 mg BIDPRN PRN PO 04/24/24 22:15 Acetaminophen 650 mg Q6HP PRN PO 04/24/24 22:15 04/25/24 23:44 650 MG Temazepam 15 mg QHSP PRN PO 04/24/24 22:15 04/27/24 01:14 15 MG Ondansetron HCl 4 mg Q4HP PRN IV 04/24/24 22:15 Enoxaparin Sodium 30 mg DAILY SC 04/25/24 10:00 UNV Diagnostic Test (Pha) 1 strip IQ4HR 04/25/24 00:00 04/27/24 07:55 1 STRIP Insulin Human Regular IQ4HR SC 04/25/24 00:00 04/27/24 08:08 4 UNITS Dextrose 50 ml UD PRN IV 04/24/24 22:15 Enoxaparin Sodium 40 mg DAILY SC 04/25/24 10:00 04/26/24 10:23 40 MG Oxycodone/ Acetaminophen 2 tab Q6HP PRN PO 04/25/24 12:00 04/27/24 10:58 2 TAB Linezolid 300 ml @ 150 mls/hr Q12H IV 04/25/24 20:00 04/27/24 07:54 150 MLS/HR Piperacillin Sod/ Tazobactam Sod 100 ml @ 25 mls/hr Q8H IV 04/25/24 23:30 04/27/24 10:44 25 MLS/HR Hydromorphone HCl 0.5 mg Q4HPRN PRN IV 04/26/24 13:15 04/27/24 08:26 0.5 MG objective General appearance: A&O x4 in no acute distress HEENT: Normal ENT inspection, pharynx normal, TMs normal Neck: Full range of motion, nontender, normal inspection Respiratory: Chest nontender, without accessory muscle use, no respiratory distress Cardiovascular: No edema, no JVD, normal peripheral pulses Gastrointestinal: Soft, nontender, no organomegaly. Musculoskeletal: Left knee range of motion grossly limited with pain on slight movement, generalized edema around the knee, no calf tenderness, normal capillary refill, no pedal edema, neurovascularly intact. Skin: Dry, normal color, warm Lymphatic: No adenopathy laboratory and microbiology Laboratory Tests 04/27/24 07:53 04/27/24 05:28 Test 04/27/24 05:28 Range/Units Serum Glucose 175 H 74-106 mg/dL Assessment/Plan Left knee tibial plateau fracture Continue current management as well as pain control. Currently pending left knee fluid aspiration analysis for cell count as well as Gram stain and cultures as knee aspiration report mentions fluid appeared like blood with some debris and will need a more definitive result to determine whether or not the patient is experiencing an infection or he is experiencing pain from the tibial plateau fracture. We will reconvene with the patient once the analysis had been completed to discuss results and determine the course of action. Plan discussed with: Patient SAUCEDOOLI Apr 27, 2024 11:20 REENA HERRING MD Apr 29, 2024 14:25
--- NOTE | 2024-04-27 11:34 | DVHPN2 ---
Subjective Patient reporting generalized weakness and severe pain to left knee Reviewed: Care Plan, H&P, Labs, Medications, Previous Orders Changes from previous H/P or p: No Changes General: Per HPI Eyes: No Pain, No Vision change, No Conjunctivae inflammation, No Eyelid inflammation, No Other, No Redness ENT: No Ear pain, No Ear discharge, No Nose pain, No Nose discharge, No Nose congestion, No Mouth pain, No Mouth swelling, No Throat pain, No Throat swelling, No Other Cardiovascular: No Chest Pain, No Palpitations, No Orthopnea, No Paroxysmal Noc. Dyspnea, No Edema, No Lt Headedness, No Other Respiratory: No Cough, No Dry, No Shortness of breath, No SOB with excertion, No Wheezing, No Hemoptysis, No Pleuritic Pain, No Sputum, No Other Gastrointestinal: No Nausea, No Vomiting, No Abdominal Pain, No Diarrhea, No Constipation, No Melena, No Hematochezia, No Other Genitourinary: No Dysuria, No Frequency, No Incontinence, No Hematuria, No Retention, No Other Musculoskeletal: No other, No neck pain, No shoulder pain, No arm pain, No back pain, No hand pain, No leg pain, No foot pain Skin: No Rash, No Lesions, No Jaundice, No Bruising, No Other Objective Vitals Vital Signs Date Time Temp Pulse Resp B/P (MAP) Pulse Ox O2 Delivery O2 Flow Rate FiO2 04/27/24 08:56 86 12 134/55 04/27/24 08:10 Nasal Cannula* 3 32 04/27/24 05:00 97.3 95 97.3 Intake/Output Intake and Output 04/27/24 07:00 Intake Total 1550 ml Balance 1550 ml Intake Oral 1150 ml IV Total 400 ml # Voids 9 General Appearance: Alert, Oriented X3, Cooperative HEENT: Atraumatic, PERRLA Lungs: Clear to auscultation, Normal air movement Cardiovascular: Normal S1, Normal S2 Extremities: Other (Dressing to left lower extremity dry and intact.) Neuro: Sensation intact Skin: Dry, Intact Psych/Mental Status: Mental status NL, Mood NL Medications Current Medications Medications Dose Ordered Sig/Sunny Route Start Time Stop Time Status Last Admin Dose Admin Tamsulosin HCl 0.4 mg DAILY PO 04/25/24 10:00 04/27/24 10:44 0.4 MG Lorazepam 0.5 mg Q6HP PRN PO 04/24/24 22:15 Al Hydrox/Mg Hydrox/Simethicone 30 ml Q6HP PRN PO 04/24/24 22:15 Docusate Sodium 100 mg BIDPRN PRN PO 04/24/24 22:15 Acetaminophen 650 mg Q6HP PRN PO 04/24/24 22:15 04/25/24 23:44 650 MG Temazepam 15 mg QHSP PRN PO 04/24/24 22:15 04/27/24 01:14 15 MG Ondansetron HCl 4 mg Q4HP PRN IV 04/24/24 22:15 Enoxaparin Sodium 30 mg DAILY SC 04/25/24 10:00 UNV Diagnostic Test (Pha) 1 strip IQ4HR 04/25/24 00:00 04/27/24 07:55 1 STRIP Insulin Human Regular IQ4HR SC 04/25/24 00:00 04/27/24 08:08 4 UNITS Dextrose 50 ml UD PRN IV 04/24/24 22:15 Enoxaparin Sodium 40 mg DAILY SC 04/25/24 10:00 04/26/24 10:23 40 MG Oxycodone/ Acetaminophen 2 tab Q6HP PRN PO 04/25/24 12:00 04/27/24 10:58 2 TAB Linezolid 300 ml @ 150 mls/hr Q12H IV 04/25/24 20:00 04/27/24 07:54 150 MLS/HR Piperacillin Sod/ Tazobactam Sod 100 ml @ 25 mls/hr Q8H IV 04/25/24 23:30 04/27/24 10:44 25 MLS/HR Hydromorphone HCl 0.5 mg Q4HPRN PRN IV 04/26/24 13:15 04/27/24 08:26 0.5 MG Laboratory Results Laboratory Tests 04/27/24 05:28 04/27/24 07:53 Chemistry Test 04/27/24 05:28 Albumin 3.0 g/dL (3.2-4.8) L Calcium Level 8.3 mg/dL (8.7-10.4) L Magnesium Level 2.3 mg/dL (1.6-2.6) Phosphorus Level 2.6 mg/dL (2.4-5.1) Total Protein 6.1 g/dL (5.7-8.2) LFT Test 04/27/24 05:28 Alanine Aminotransferase (ALT) 23 U/L (7-40) Alkaline Phosphatase 104 U/L (46-116) Aspartate Amino Transferase (AST) 55 U/L (13-40) H Total Bilirubin 0.7 mg/dL (0.2-1.0) Urinalysis Test 04/24/24 17:25 Urine Color Light-yellow (Yellow) Urine Clarity Clear (Clear) Urine pH 5.5 (5.0-9.0) Urine Specific [place] 1.031 (1.001-1.035) Urine Protein 1+ (Negative) H Urine Ketones 1+ (Negative) H Urine Blood 1+ /uL (Negative) H Urine Nitrite Negative (Negative) Urine Bilirubin Negative (Negative) Urine Urobilinogen Normal mg/dL (Negative) Urine Leukocyte Esterase Trace /uL (Negative) Urine RBC 5 /hpf (0 - 3) Urine WBC 19 /hpf (0 - 3) Urine Squamous Epithelial Cells Few /hpf (<5) Urine Bacteria None seen /hpf (None Seen) Urine Glucose 4+ mg/dL (Normal) H Microbiology Microbiology Date/Time Source Procedure Growth Status 04/25/24 13:00 Blood Blood Culture - Preliminary Resulted 04/25/24 12:08 Nose MRSA Screen - Final Complete Labs and/or images reviewed: Labs reviewed by me, Image(s) reviewed by me Assessment/Plan Assessment/Plan Impression: -sepsis -rule out left knee septic arthritis -acute on chronic decompensated systolic heart failure -syncope with collapse -history of probable coronary artery disease with CABG -diabetes mellitus, uncontrolled -acute kidney injury, vasomotor nephropathy -chronic pain syndrome with chronic opiate use -degenerative joint disease left shoulder and back -history of ETOH use Plan: -events: ? left knee arthroscopy -radiology consultation for knee aspiration. If fluid is noted to be infected, plans for surgery tomorrow. -cardiology consultation -orthopedic surgery consultation -antibiotic therapy: Zosyn, Zyvox -PUD, DVT prophylaxis -blood cultures: prelim with Staph Aures -continue regular insulin sliding scale, aggressive scale -repeat labs in a.m. Total time spent with patient discussing and formulating plan of care: 35 minutes. This medical document was created using an electronic medical record system with [employer] computerized dictation system. Although this document has been carefully reviewed, there may still be some phonetic and typographical errors. These areas are purely typographical due to imperfections of the software programs, and do not reflect any compromise in the patient's medical care. Plan discussed with: Patient, Other (RN) My Orders Orders - XOCHITL GRAY NP Procedure Category Date Status Time *[facility] CONS 04/26/24 Transmitted -[place] 12:05 * Radiologist Consult CONS 04/26/24 Transmitted 13:09 Hydromorphone PHA 04/26/24 In Process Injection (Dilaudid 13:15 Us Guidance For US 04/26/24 Resulted Needle Placeme 14:47 Date of Service: Apr 27, 2024 Billing Provider: XOCHITL GRAY NP Common Visit Codes: [id number] INP/OBS CARE(HIGH) XOCHITL GRAY NP Apr 27, 2024 11:34
--- NOTE | 2024-04-27 12:06 | DVHPN2 ---
Progress Note Date Seen: Apr 27, 2024 Medical Necessity Reason Pt with a Central, PICC or Fol: No Subjective Other Systems: + blood cx Objective vital signs Vital Sign Date Time Temp Pulse Resp B/P (MAP) Pulse Ox O2 Delivery O2 Flow Rate FiO2 04/27/24 08:56 86 12 134/55 04/27/24 08:10 Nasal Cannula* 3 32 04/27/24 05:00 97.3 95 97.3 Total Intake and Output 04/26/24 04/26/24 04/27/24 15:00 23:00 07:00 Intake Total 300 ml 350 ml 900 ml Balance 300 ml 350 ml 900 ml medications Current Medications Medications Dose Ordered Sig/Sunny Route Start Time Stop Time Status Last Admin Dose Admin Tamsulosin HCl 0.4 mg DAILY PO 04/25/24 10:00 04/27/24 10:44 0.4 MG Lorazepam 0.5 mg Q6HP PRN PO 04/24/24 22:15 Al Hydrox/Mg Hydrox/Simethicone 30 ml Q6HP PRN PO 04/24/24 22:15 Docusate Sodium 100 mg BIDPRN PRN PO 04/24/24 22:15 Acetaminophen 650 mg Q6HP PRN PO 04/24/24 22:15 04/25/24 23:44 650 MG Temazepam 15 mg QHSP PRN PO 04/24/24 22:15 04/27/24 01:14 15 MG Ondansetron HCl 4 mg Q4HP PRN IV 04/24/24 22:15 Enoxaparin Sodium 30 mg DAILY SC 04/25/24 10:00 UNV Diagnostic Test (Pha) 1 strip IQ4HR 04/25/24 00:00 04/27/24 07:55 1 STRIP Insulin Human Regular IQ4HR SC 04/25/24 00:00 04/27/24 08:08 4 UNITS Dextrose 50 ml UD PRN IV 04/24/24 22:15 Enoxaparin Sodium 40 mg DAILY SC 04/25/24 10:00 04/26/24 10:23 40 MG Oxycodone/ Acetaminophen 2 tab Q6HP PRN PO 04/25/24 12:00 04/27/24 10:58 2 TAB Linezolid 300 ml @ 150 mls/hr Q12H IV 04/25/24 20:00 04/27/24 07:54 150 MLS/HR Piperacillin Sod/ Tazobactam Sod 100 ml @ 25 mls/hr Q8H IV 04/25/24 23:30 04/27/24 10:44 25 MLS/HR Hydromorphone HCl 0.5 mg Q4HPRN PRN IV 04/26/24 13:15 04/27/24 08:26 0.5 MG Insulin Glargine 15 units HS SC 04/27/24 22:00 Examination: GENERAL:Abnormal, HEENT:Abnormal, LUNGS:Abnormal, CVS:Abnormal, ABDOMEN:Abnormal laboratory and microbiology Laboratory Tests 04/27/24 07:53 04/27/24 05:28 Test 04/27/24 05:28 Range/Units Serum Glucose 175 H 74-106 mg/dL Microbiology Date/Time Source Procedure Growth Status 04/26/24 16:21 Aspirate Gram Stain Pending Resulted 04/26/24 16:21 Aspirate Body Fluid Culture - Preliminary Resulted 04/25/24 13:00 Blood Blood Culture - Preliminary Resulted 04/25/24 12:08 Nose MRSA Screen - Final Complete Problem List/Assessment/Plan Problem List/Assessment/Plan DM infected knee cad s/p pci HTN HL cont asa statin mild CHF on echo fu ortho recs Plan discussed with: Patient Date of Service: Apr 27, 2024 Billing Provider: JP PAGE MD Common Visit Codes: NOT BILLABLE JP PAGE MD Apr 27, 2024 12:06
[2024-04-27] MEDS: ADENOSINE 69 MG in GIVE UN-DILUTED 0 ML IV ONE (14:30)
--- NOTE | 2024-04-27 14:39 | DVHPN2 ---
Progress Note Date Seen: Apr 27, 2024 Resident Creating Document: WANDY DE LA O RESIDENT Medical Necessity Reason Pt with a Central, PICC or Fol: No Subjective Review of Systems History of Present Illness Patient is 63-year-old male with past medical history of diabetes mellitus on insulin, heart failure reduced ejection fraction, status post CABG, AICD, PTCA, bilateral foot amputation who brought to the hospital due to worsening left knee pain after he had mechanical fall landed on both knees and started having swelling and pain mainly on the left-sided. Patient denied any other complaints. Patient otherwise feeling well denying other symptoms including chest pain, shortness of breath, fever, chills, any other symptoms. Nephrology consultation was done for worsening kidney function. Past Medical History diabetes mellitus on insulin, heart failure reduced ejection fraction, status post CABG, AICD, PTCA, bilateral foot amputation Past Surgical History Bilateral toe amputation CABG PTCA Family History: Diabetes mellitus G8 MOTHER FHx: kidney disease G8 MOTHER Social History Former smoker smoked cigarettes greater than 30 years Alcohol abuse, last drink four weeks ago History of methamphetamine use Chronic opioid use: Mainly marijuana for chronic back pain. Patient seen and examined at bedside. Patient kidney function significantly improved. Urine output also maintained. Patient continued to complaining of left knee pain and back pain. No other complaints at this point. Objective vital signs Vital Sign Date Time Temp Pulse Resp B/P (MAP) Pulse Ox O2 Delivery O2 Flow Rate FiO2 04/27/24 13:57 84 18 130/46 04/27/24 08:10 Nasal Cannula* 3 32 04/27/24 05:00 97.3 95 97.3 Total Intake and Output 04/26/24 04/26/24 04/27/24 15:00 23:00 07:00 Intake Total 300 ml 350 ml 900 ml Balance 300 ml 350 ml 900 ml medications Current Medications Medications Dose Ordered Sig/Sunny Route Start Time Stop Time Status Last Admin Dose Admin Tamsulosin HCl 0.4 mg DAILY PO 04/25/24 10:00 04/27/24 10:44 0.4 MG Lorazepam 0.5 mg Q6HP PRN PO 04/24/24 22:15 Al Hydrox/Mg Hydrox/Simethicone 30 ml Q6HP PRN PO 04/24/24 22:15 Docusate Sodium 100 mg BIDPRN PRN PO 04/24/24 22:15 Acetaminophen 650 mg Q6HP PRN PO 04/24/24 22:15 04/25/24 23:44 650 MG Temazepam 15 mg QHSP PRN PO 04/24/24 22:15 04/27/24 01:14 15 MG Ondansetron HCl 4 mg Q4HP PRN IV 04/24/24 22:15 Enoxaparin Sodium 30 mg DAILY SC 04/25/24 10:00 UNV Diagnostic Test (Pha) 1 strip IQ4HR 04/25/24 00:00 04/27/24 14:04 1 STRIP Insulin Human Regular IQ4HR SC 04/25/24 00:00 04/27/24 14:04 8 UNITS Dextrose 50 ml UD PRN IV 04/24/24 22:15 Enoxaparin Sodium 40 mg DAILY SC 04/25/24 10:00 04/26/24 10:23 40 MG Oxycodone/ Acetaminophen 2 tab Q6HP PRN PO 04/25/24 12:00 04/27/24 10:58 2 TAB Linezolid 300 ml @ 150 mls/hr Q12H IV 04/25/24 20:00 04/27/24 07:54 150 MLS/HR Piperacillin Sod/ Tazobactam Sod 100 ml @ 25 mls/hr Q8H IV 04/25/24 23:30 04/27/24 10:44 25 MLS/HR Hydromorphone HCl 0.5 mg Q4HPRN PRN IV 04/26/24 13:15 04/27/24 13:57 0.5 MG Insulin Glargine 15 units HS SC 04/27/24 22:00 Examination General Appearance: Cooperative. Well developed. In mild distress. Head Exam: Normal inspection Neck Exam: Normal inspection. Non-tender. Normal alignment Pulmonary/Respiratory: Chest non-tender. Clear bilateral breath sounds Cardiovascular/Chest: Presence of foreign device likely AICD in left upper part of chest, Regular rate and rhythm. No murmurs. No JVD. Peripheral Pulses: 2+ Radial (R). 2+ Radial (L). Abdominal Exam: Normal bowel sounds. Soft. Nontender. No hepatospenomegaly. No masses Ankle Exam: Left knee mildly swollen, elevated temperature, underwent exploration. Bilateral foot amputation. Lower extremities: Negative lower extremity edema Neuro/Mental Status: A&O x4. Coherent laboratory and microbiology Laboratory Tests 04/27/24 07:53 04/27/24 05:28 Test 04/27/24 05:28 Range/Units Serum Glucose 175 H 74-106 mg/dL Microbiology Date/Time Source Procedure Growth Status 04/26/24 16:21 Aspirate Gram Stain Pending Resulted 04/26/24 16:21 Aspirate Body Fluid Culture - Preliminary Resulted 04/25/24 13:00 Blood Blood Culture - Preliminary Resulted 04/25/24 12:08 Nose MRSA Screen - Final Complete Problem List/Assessment/Plan Problem List/Assessment/Plan MESERET likely hemodynamically mediated Septic arthritis Acute on chronic HFrEF Diabetes mellitus type 2 insulin-dependent Iron-deficiency anemia Chronic opiate use mainly morphine History of meth use Former smoker, smoked greater than 30 years. History of alcohol use History of CABG with AICD placement. History of coronary artery disease with PTCA placement Plan/recommendation: [place]ano -discontinued IV fluid, given patient blood pressure is maintained, appropriate urine output, kidney function also improved. -recommend consideration of possibility of osteomyelitis of spine given blood culture growing staph aureus -renal ultrasound: Unremarkable sonographic study of the bilateral kidneys and urinary bladder. -echocardiogram revealed ejection fraction 40%, follow cardiology recommendation if needed. -recommend iron replacement for severe iron-deficiency anemia -strict I&O -avoid nephrotoxic drugs Addendum Patient seen and examined, plan discussed with resident. Agree with above, we will follow closely c/o severe backpain-consider r/o vertebral osteomyelitis Plan discussed with: Patient, Other (RN) My Orders My Orders Orders - WANDY DE LA O Procedure Category Date Status Time Kidney US 04/26/24 Resulted 15:45 Urine LAB 04/26/24 Logged Protein/Creatinine Urine Sodium LAB 04/26/24 Logged UNK Chest Xray 1 View XY 04/26/24 Resulted 16:11 WANDY DE LA O Apr 27, 2024 14:39 GUY MONTANO MD Apr 27, 2024 18:31
[2024-04-28] VITALS (8 sets, daily range): BP systolic 104–132; BP diastolic 45–86; PULSE 77–104; RESP 16–19; TEMP 98.1–102.4; O2SAT 93–98
[2024-04-28] MEDS ORDERED: ceFAZolin 2 GM/D5W50ml 50 ML IV SCH
[2024-04-28] MEDS: INSULIN LANTUS (GLARGINE) 1 /0.01ml (100units/ml) SC SCH (00:10)
--- NOTE | 2024-04-28 07:33 | DVHPN2 ---
Progress Note Date Seen: Apr 28, 2024 Medical Necessity Reason Pt with a Central, PICC or Fol: No Subjective Other Systems: pt cannot move shoulder cannot do stress test Objective vital signs Vital Sign Date Time Temp Pulse Resp B/P (MAP) Pulse Ox O2 Delivery O2 Flow Rate FiO2 04/28/24 05:00 99.7 80 16 115/47 (69) 93 99.7 04/27/24 20:00 Nasal Cannula* 2 28 Total Intake and Output 04/27/24 04/27/24 04/28/24 14:59 22:59 06:59 Intake Total 300 ml 0 ml 350 ml Output Total 150 ml Balance 300 ml -150 ml 350 ml medications Current Medications Medications Dose Ordered Sig/Sunny Route Start Time Stop Time Status Last Admin Dose Admin Tamsulosin HCl 0.4 mg DAILY PO 04/25/24 10:00 04/27/24 10:44 0.4 MG Lorazepam 0.5 mg Q6HP PRN PO 04/24/24 22:15 Al Hydrox/Mg Hydrox/Simethicone 30 ml Q6HP PRN PO 04/24/24 22:15 Docusate Sodium 100 mg BIDPRN PRN PO 04/24/24 22:15 Acetaminophen 650 mg Q6HP PRN PO 04/24/24 22:15 04/25/24 23:44 650 MG Temazepam 15 mg QHSP PRN PO 04/24/24 22:15 04/27/24 01:14 15 MG Ondansetron HCl 4 mg Q4HP PRN IV 04/24/24 22:15 Enoxaparin Sodium 30 mg DAILY SC 04/25/24 10:00 UNV Diagnostic Test (Pha) 1 strip IQ4HR 04/25/24 00:00 04/28/24 04:00 1 STRIP Insulin Human Regular IQ4HR SC 04/25/24 00:00 04/28/24 05:34 8 UNITS Dextrose 50 ml UD PRN IV 04/24/24 22:15 Enoxaparin Sodium 40 mg DAILY SC 04/25/24 10:00 04/26/24 10:23 40 MG Oxycodone/ Acetaminophen 2 tab Q6HP PRN PO 04/25/24 12:00 04/27/24 21:32 2 TAB Linezolid 300 ml @ 150 mls/hr Q12H IV 04/25/24 20:00 04/27/24 19:55 150 MLS/HR Piperacillin Sod/ Tazobactam Sod 100 ml @ 25 mls/hr Q8H IV 04/25/24 23:30 04/28/24 00:45 25 MLS/HR Hydromorphone HCl 0.5 mg Q4HPRN PRN IV 04/26/24 13:15 04/28/24 03:23 0.5 MG Insulin Glargine 15 units HS SC 04/27/24 22:00 04/28/24 00:10 15 UNITS Examination: GENERAL:Abnormal, HEENT:Abnormal, LUNGS:Abnormal, CVS:Abnormal, ABDOMEN:Abnormal laboratory and microbiology Laboratory Tests 04/27/24 07:53 04/27/24 05:28 Test 04/27/24 05:28 Range/Units Serum Glucose 175 H 74-106 mg/dL Microbiology Date/Time Source Procedure Growth Status 04/26/24 16:21 Aspirate Gram Stain - Final Resulted 04/26/24 16:21 Aspirate Body Fluid Culture - Preliminary Resulted 04/25/24 13:00 Blood Blood Culture - Preliminary Resulted 04/25/24 12:08 Nose MRSA Screen - Final Complete Problem List/Assessment/Plan Problem List/Assessment/Plan DM infected knee cad s/p pci HTN HL probable PAD amputation cont asa statin mild CHF on echo fu ortho recs pt can proceed to OR at intermediate risk, cont asa, statin and beta linsey periop Plan discussed with: Patient My Orders My Orders Orders - JP PAGE MD Procedure Category Date Status Time Cardiolite Multiple NM 04/27/24 Logged 14:05 Date of Service: Apr 28, 2024 Billing Provider: JP PAGE MD Common Visit Codes: NOT BILLABLE JP PAGE MD Apr 28, 2024 07:33
--- NOTE | 2024-04-28 09:49 | DVHPN2 ---
Subjective Patient reporting generalized weakness and severe pain to left knee Reviewed: Care Plan, H&P, Labs, Medications, Previous Orders Changes from previous H/P or p: No Changes General: Per HPI Eyes: No Pain, No Vision change, No Conjunctivae inflammation, No Eyelid inflammation, No Other, No Redness ENT: No Ear pain, No Ear discharge, No Nose pain, No Nose discharge, No Nose congestion, No Mouth pain, No Mouth swelling, No Throat pain, No Throat swelling, No Other Cardiovascular: No Chest Pain, No Palpitations, No Orthopnea, No Paroxysmal Noc. Dyspnea, No Edema, No Lt Headedness, No Other Respiratory: No Cough, No Dry, No Shortness of breath, No SOB with excertion, No Wheezing, No Hemoptysis, No Pleuritic Pain, No Sputum, No Other Gastrointestinal: No Nausea, No Vomiting, No Abdominal Pain, No Diarrhea, No Constipation, No Melena, No Hematochezia, No Other Genitourinary: No Dysuria, No Frequency, No Incontinence, No Hematuria, No Retention, No Other Musculoskeletal: No other, No neck pain, No shoulder pain, No arm pain, No back pain, No hand pain, No leg pain, No foot pain Skin: No Rash, No Lesions, No Jaundice, No Bruising, No Other Objective Vitals Vital Signs Date Time Temp Pulse Resp B/P (MAP) Pulse Ox O2 Delivery O2 Flow Rate FiO2 04/28/24 09:00 100.1 83 18 132/61 (84) 94 100.1 04/28/24 07:58 Nasal Cannula* 3 32 Intake/Output Intake and Output 04/28/24 07:00 Intake Total 650 ml Output Total 150 ml Balance 500 ml Intake Oral 350 ml IV Total 300 ml Output Urine Total 150 ml # Voids 4 General Appearance: Alert, Oriented X3, Cooperative HEENT: Atraumatic, PERRLA Lungs: Clear to auscultation, Normal air movement Cardiovascular: Normal S1, Normal S2 Extremities: Other (Dressing to left lower extremity dry and intact.) Neuro: Sensation intact Skin: Dry, Intact Psych/Mental Status: Mental status NL, Mood NL Medications Current Medications Medications Dose Ordered Sig/Sunny Route Start Time Stop Time Status Last Admin Dose Admin Tamsulosin HCl 0.4 mg DAILY PO 04/25/24 10:00 04/27/24 10:44 0.4 MG Lorazepam 0.5 mg Q6HP PRN PO 04/24/24 22:15 Al Hydrox/Mg Hydrox/Simethicone 30 ml Q6HP PRN PO 04/24/24 22:15 Docusate Sodium 100 mg BIDPRN PRN PO 04/24/24 22:15 Acetaminophen 650 mg Q6HP PRN PO 04/24/24 22:15 04/25/24 23:44 650 MG Temazepam 15 mg QHSP PRN PO 04/24/24 22:15 04/27/24 01:14 15 MG Ondansetron HCl 4 mg Q4HP PRN IV 04/24/24 22:15 Enoxaparin Sodium 30 mg DAILY SC 04/25/24 10:00 UNV Diagnostic Test (Pha) 1 strip IQ4HR 04/25/24 00:00 04/28/24 08:00 1 STRIP Insulin Human Regular IQ4HR SC 04/25/24 00:00 04/28/24 07:52 8 UNITS Dextrose 50 ml UD PRN IV 04/24/24 22:15 Enoxaparin Sodium 40 mg DAILY SC 04/25/24 10:00 04/26/24 10:23 40 MG Oxycodone/ Acetaminophen 2 tab Q6HP PRN PO 04/25/24 12:00 04/27/24 21:32 2 TAB Linezolid 300 ml @ 150 mls/hr Q12H IV 04/25/24 20:00 04/27/24 19:55 150 MLS/HR Piperacillin Sod/ Tazobactam Sod 100 ml @ 25 mls/hr Q8H IV 04/25/24 23:30 04/28/24 07:33 25 MLS/HR Hydromorphone HCl 0.5 mg Q4HPRN PRN IV 04/26/24 13:15 04/28/24 07:34 0.5 MG Insulin Glargine 15 units HS SC 04/27/24 22:00 04/28/24 00:10 15 UNITS Laboratory Results Laboratory Tests 04/27/24 05:28 04/27/24 07:53 Urinalysis Test 04/24/24 17:25 Urine Color Light-yellow (Yellow) Urine Clarity Clear (Clear) Urine pH 5.5 (5.0-9.0) Urine Specific [place] 1.031 (1.001-1.035) Urine Protein 1+ (Negative) H Urine Ketones 1+ (Negative) H Urine Blood 1+ /uL (Negative) H Urine Nitrite Negative (Negative) Urine Bilirubin Negative (Negative) Urine Urobilinogen Normal mg/dL (Negative) Urine Leukocyte Esterase Trace /uL (Negative) Urine RBC 5 /hpf (0 - 3) Urine WBC 19 /hpf (0 - 3) Urine Squamous Epithelial Cells Few /hpf (<5) Urine Bacteria None seen /hpf (None Seen) Urine Glucose 4+ mg/dL (Normal) H Microbiology Microbiology Date/Time Source Procedure Growth Status 04/26/24 16:21 Aspirate Gram Stain - Final Resulted 04/26/24 16:21 Aspirate Body Fluid Culture - Preliminary Resulted 04/25/24 13:00 Blood Blood Culture - Preliminary Resulted 04/25/24 12:08 Nose MRSA Screen - Final Complete Labs and/or images reviewed: Labs reviewed by me, Image(s) reviewed by me Assessment/Plan Assessment/Plan Impression: -sepsis -septic arthritis -acute on chronic decompensated systolic heart failure -syncope with collapse -history of probable coronary artery disease with CABG -diabetes mellitus, uncontrolled -acute kidney injury, vasomotor nephropathy -chronic pain syndrome with chronic opiate use -degenerative joint disease left shoulder and back -history of ETOH use Plan: -events: Knee aspirate positive for Staphylococcus aureus. Patient to OR today. -radiology consultation for knee aspiration. If fluid is noted to be infected, plans for surgery tomorrow. -cardiology consultation -orthopedic surgery consultation -antibiotic therapy: Zosyn, Zyvox -PUD, DVT prophylaxis -blood cultures: prelim with Staph Aures -continue regular insulin sliding scale, aggressive scale -repeat labs in a.m. Total time spent with patient discussing and formulating plan of care: 35 minutes. This medical document was created using an electronic medical record system with [employer] dictation system. Although this document has been carefully reviewed, there may still be some phonetic and typographical errors. These areas are purely typographical due to imperfections of the software programs, and do not reflect any compromise in the patient's medical care. Plan discussed with: Patient, Other (RN) My Orders Orders - XOCHITL GRAY NP Procedure Category Date Status Time Insulin Lantus PHA 04/27/24 In Process (Glargine) (Lantus) 22:00 Date of Service: Apr 28, 2024 Billing Provider: XOCHITL GRAY NP Common Visit Codes: [id number] INP/OBS CARE(HIGH) XOCHITL GRAY NP Apr 28, 2024 09:49
[2024-04-28] MEDS ORDERED: MIDAZOLAM HCL 2MG/2ML 2ml VIAL (1mg/ml) ONE (10:17)
[2024-04-28] MEDS ORDERED: fentaNYL CITRATE 100 MCG/2 ML VL ONE ×2 (10:17→10:49)
[2024-04-28] MEDS: ROPIVACAINE 0.5% (5MG/ML) 20ML AMPULE IJ ONE (10:21)
--- NOTE | 2024-04-28 11:02 | DVHPN2 ---
Progress Note Date Seen: Apr 28, 2024 Resident Creating Document: WANDY DE LA O RESIDENT Medical Necessity Reason Pt with a Central, PICC or Fol: No Subjective Review of Systems Patient underwent left knee arthroscopic today. Patient complains of severe pain in left knee. No other complaints. Objective vital signs Vital Sign Date Time Temp Pulse Resp B/P (MAP) Pulse Ox O2 Delivery O2 Flow Rate FiO2 04/28/24 09:00 100.1 83 18 132/61 (84) 94 100.1 04/28/24 07:58 Nasal Cannula* 3 32 Total Intake and Output 04/27/24 04/27/24 04/28/24 15:00 23:00 07:00 Intake Total 300 ml 0 ml 350 ml Output Total 150 ml Balance 300 ml -150 ml 350 ml medications Current Medications Medications Dose Ordered Sig/Sunny Route Start Time Stop Time Status Last Admin Dose Admin Tamsulosin HCl 0.4 mg DAILY PO 04/25/24 10:00 04/27/24 10:44 0.4 MG Lorazepam 0.5 mg Q6HP PRN PO 04/24/24 22:15 Al Hydrox/Mg Hydrox/Simethicone 30 ml Q6HP PRN PO 04/24/24 22:15 Docusate Sodium 100 mg BIDPRN PRN PO 04/24/24 22:15 Acetaminophen 650 mg Q6HP PRN PO 04/24/24 22:15 04/25/24 23:44 650 MG Temazepam 15 mg QHSP PRN PO 04/24/24 22:15 04/27/24 01:14 15 MG Ondansetron HCl 4 mg Q4HP PRN IV 04/24/24 22:15 Enoxaparin Sodium 30 mg DAILY SC 04/25/24 10:00 UNV Diagnostic Test (Pha) 1 strip IQ4HR 04/25/24 00:00 04/28/24 08:00 1 STRIP Insulin Human Regular IQ4HR SC 04/25/24 00:00 04/28/24 07:52 8 UNITS Dextrose 50 ml UD PRN IV 04/24/24 22:15 Enoxaparin Sodium 40 mg DAILY SC 04/25/24 10:00 04/26/24 10:23 40 MG Oxycodone/ Acetaminophen 2 tab Q6HP PRN PO 04/25/24 12:00 04/27/24 21:32 2 TAB Linezolid 300 ml @ 150 mls/hr Q12H IV 04/25/24 20:00 04/27/24 19:55 150 MLS/HR Piperacillin Sod/ Tazobactam Sod 100 ml @ 25 mls/hr Q8H IV 04/25/24 23:30 04/28/24 07:33 25 MLS/HR Hydromorphone HCl 0.5 mg Q4HPRN PRN IV 04/26/24 13:15 04/28/24 07:34 0.5 MG Insulin Glargine 15 units HS SC 04/27/24 22:00 04/28/24 00:10 15 UNITS Examination General Appearance: Cooperative. Well developed. In mild distress. Head Exam: Normal inspection Neck Exam: Normal inspection. Non-tender. Normal alignment Pulmonary/Respiratory: Chest non-tender. Clear bilateral breath sounds Cardiovascular/Chest: Presence of foreign device likely AICD in left upper part of chest, Regular rate and rhythm. No murmurs. No JVD. Peripheral Pulses: 2+ Radial (R). 2+ Radial (L). Abdominal Exam: Normal bowel sounds. Soft. Nontender. No hepatospenomegaly. No masses Ankle Exam: Left knee mildly swollen, elevated temperature, underwent exploration. Bilateral foot amputation. Lower extremities: Negative lower extremity edema Neuro/Mental Status: A&O x4. Coherent laboratory and microbiology Laboratory Tests 04/27/24 07:53 04/27/24 05:28 Test 04/27/24 05:28 Range/Units Serum Glucose 175 H 74-106 mg/dL Microbiology Date/Time Source Procedure Growth Status 04/26/24 16:21 Aspirate Gram Stain - Final Resulted 04/26/24 16:21 Aspirate Body Fluid Culture - Preliminary Resulted 04/25/24 13:00 Blood Blood Culture - Preliminary Resulted 04/25/24 12:08 Nose MRSA Screen - Final Complete Problem List/Assessment/Plan Problem List/Assessment/Plan MESERET likely hemodynamically mediated Septic arthritis Acute on chronic HFrEF Diabetes mellitus type 2 insulin-dependent Iron-deficiency anemia Chronic opiate use mainly morphine History of meth use Former smoker, smoked greater than 30 years. History of alcohol use History of CABG with AICD placement. History of coronary artery disease with PTCA placement Plan/recommendation: Bonny Montano -discontinued IV fluid, given patient blood pressure is maintained, appropriate urine output, kidney function also improved. -c/o severe backpain-consider r/o vertebral osteomyelitis -renal ultrasound: Unremarkable sonographic study of the bilateral kidneys and urinary bladder. -echocardiogram revealed ejection fraction 40%, follow cardiology recommendation if needed. -recommend iron replacement for severe iron-deficiency anemia -strict I&O -avoid nephrotoxic drugs -Pending BMP today Addendum Patient seen and examined, plan discussed with resident. Agree with above, we will follow closely I will sign off this case please reconsult if needed Renal function improved Plan discussed with: Patient, Other (RN) My Orders My Orders Orders - WANDY DE LA O Procedure Category Date Status Time Complete Blood Count LAB 04/28/24 Logged 09:22 Basic Metabolic Panel LAB 04/28/24 Logged 09:22 WANDY DE LA O Apr 28, 2024 11:02 GUY MONTANO MD Apr 28, 2024 19:06
--- NOTE | 2024-04-28 11:31 | DVHOP2 ---
Operative Report - 2 Report Details Date: 04/28/24 Preop Diagnosis: Left knee septic arthritis Postop Diagnosis: Left knee septic arthritis Surgeon: Bradley Ramirez MD Pot Annealer: Maverick RIDDLE Anesthesiologist: Clarisa Anesthesia: General, Regional Consent: The patient was informed of the risks and benefits of the procedure. These include but are not limited to complications of anesthesia, postoperative infection, incomplete relief of symptoms, recurrence of symptoms, damage to blood vessels, nerves and tendons, deep venous thrombosis, pulmonary embolism and possible need for repeat surgery in the future. Complications: None Estimated Blood Loss: Less than 5 cc Fluids: See anesthesia record Findings: Left knee effusion no evidence of penetrating wound, three compartment grade 4 chondromalacia with debris and mild synovitis some external erythema, medial tibial plateau fracture. He was noted to have a full-thickness wound with purulent exudate at his left heel and a larger area of proximally for 5 cm of dark discoloration in the skin and subcutaneous tissue possibly consistent with early necrosis. Indications for Surgery: Left knee pain with elevated WBC and elevated sed rate and large number of white cells on knee aspiration with culture positive staph aureus. Name of Procedure Performed Left knee arthroscopic debridement for infection Procedure Details Procedure Details: Patient was brought to the operating room and placed on table in supine position. Patient was given general anesthetic and adductor block. Tourniquet applied to the left thigh. Left lower extremity was prepped and draped in sterile fashion. Surgical time-out was performed verifying patient, laterality, and procedure. I 1st used a 18 gauge needle to aspirate fluid from the superolateral patellofemoral joint getting about 15-20 cc of clearly purulent fluid. This fluid was sent for Gram stain, aerobic and anaerobic cultures. I then elevated extremity and tourniquet inflated to 250 mm Hg. I made the inferior lateral portal in the usual fashion entered the joint with blunt cannula and trocar and began my inspection. As stated there was debris and mild synovitis I checked the suprapatellar patellofemoral compartment medial gutter then medial compartment and placed inferior medial portal utilizing spinal needle for guidance. I inspected the structures used a shaver to debride some soft tissue. I then checked the ligaments in the notch and again shaved ligamentum mucosa and some fat pad. I checked the lateral compartment in figure 4 position and again did some shaving of debris and inflamed synovium. Checked the lateral gutter brought my attention back to the patellofemoral compartment and did some shaving here of inflamed synovium. We ran fluid through for a total of 6 L. we suctioned the joint as dry as possible. Applied Steri-Strips strips to the portal sites and dressed the wound sterilely. Tourniquet released at time of closure. We also applied wound dressing to the diabetic ulcer of the left heel. Patient tolerated the procedure well and was brought to the recovery room in stable condition. Specimen: Knee aspirate sent for Gram stain, aerobic and anaerobic cultures. Condition Stable Disposition Still a Patient BRADLEY RAMIREZ MD Apr 28, 2024 11:31
[2024-04-28] MEDS: ONDANSETRON HCL 4 MG/2 ML VIAL IV ONE (11:45)
[2024-04-28] MEDS ORDERED: MEPERIDINE HCL (25 MG/ML) 1ML VIAL IV PRN (11:45)
[2024-04-28] MEDS ORDERED: HYDROmorphone HCL 2 MG/ML VL/or syr IV PRN (11:45)
[2024-04-28] MEDS: ACETAMINOPHEN IV 100 ML IV ONE (12:11)
[2024-04-28] MEDS: ACETAMINOPHEN IV 1000 MG/100ML (10MG/ML) IV ONE (12:12)
--- NOTE | 2024-04-28 12:30 | DVHINCON2 ---
Date of service: Apr 28, [address] Simpson Reason for Consultation bacteremia History of Present Illness Patient is a 63-year-old male presents to the hospital. When patient came in he had sepsis that is why Infectious disease was consulted. He reports left knee pain and swelling, both shoulder pain and pain in upper part of the neck. He has bacteremia and growing Staphylococcus aureus. Patient is alcoholic. Patient underwent left knee aspiration because of the swelling of the left knee it grew staph aureus. s/p I and D. Patient also noted to have uncontrolled diabetes mellitus. MRSA screening: Negative Past Medical History Patient's past medical history is significant for CAD and Diabetes mellitus. Family History: Diabetes mellitus G8 MOTHER FHx: kidney disease G8 MOTHER Allergies: Coded Allergies: Hydrocodone (Verified Allergy, Severe, LEG SWELLING, 04/25/24) Codeine (Verified Allergy, Unknown, 04/24/24) Ketorolac Tromethamine (Verified Allergy, Unknown, 04/03/24) Home Meds Active Scripts Ibuprofen Micronized (Ibuprofen) 600 Mg Tab, 600 MG PO BID for 7 Days, #14 TAB Prov:TAMMY ANNE MD 04/07/24 Oxycodone HCl (Oxycodone Hydrochloride) 10 Mg Tab, 10 MG PO TIDPRN PRN for 7 Days, #21 TAB Prov:TAMMY ANNE MD 04/07/24 Oxycodone Hcl (OxyCONTIN ER Tablet) 10 Mg Tb, 1 TAB PO BID for 7 Days, #14 TAB 0 Refills Prov:TAMMY ANNE MD 04/07/24 Tamsulosin Hcl (Flomax) 0.4 Mg Cap, 0.4 MG PO QPM for 30 Days, #30 CAP 0 Refills Prov:TAMMY ANNE MD 04/07/24 Baclofen (Baclofen) 10 Mg Tab, 5 MG PO Q8HR for 30 Days, #45 TAB 0 Refills Prov:TAMMY ANNE MD 04/07/24 Reported Medications Tamsulosin HCl (Tamsulosin Hydrochloride) 0.4 Mg Cap, 0.4 MG PO, CAP 04/04/24 Current Medications Current Medications Medications (Trade) Dose Ordered Sig/Sunny Route PRN Reason Start Time Stop Time Status Last Admin Insulin Glargine (Lantus) 15 units HS SC 04/27/24 22:00 04/28/24 00:10 Hydromorphone HCl (Dilaudid Injection) 0.5 mg Q10M PRN IV SEVERE PAIN (7-10 PAIN SCALE) 04/28/24 11:45 04/28/24 12:26 UNV Meperidine HCl (Demerol Injection) 25 mg Q10M PRN IV MODERATE PAIN (4-6 PAIN SCALE) 04/28/24 11:45 04/28/24 12:16 DC Review of Systems Constitutional: No: Fever, Chills, Sweats, Weakness, Malaise, Other Eyes: No: Pain, Vision change, Conjunctivae inflammation, Eyelid inflammation, Other, Redness ENT: No: Ear pain, Ear discharge, Nose pain, Nose discharge, Nose congestion, Mouth pain, Mouth swelling, Throat pain, Throat swelling, Other Respiratory: No: Cough, Dry, Shortness of breath, SOB with excertion, Wheezing, Hemoptysis, Pleuritic Pain, Sputum, Wheezing, Other Cardiovascular: No: Chest Pain, Palpitations, Orthopnea, Paroxysmal Noc. Dyspnea, Edema, Lt Headedness, Other Gastrointestinal: No: Nausea, Vomiting, Abdominal Pain, Diarrhea, Constipation, Melena, Hematochezia, Other Genitourinary: No Dysuria, No Frequency, No Incontinence, No Hematuria, No Retention, No Other Musculoskeletal: Reports neck pain, shoulder pain and left knee pain Skin: No: Rash, Lesions, Jaundice, Bruising, Other Neurological: No: Weakness, Numbness, Incoordination, Change in speech, Confusion, Seizures, Other Vital Signs Vital Signs Date Time Temp Pulse Resp B/P (MAP) Pulse Ox O2 Delivery O2 Flow Rate FiO2 04/28/24 09:00 100.1 83 18 132/61 (84) 94 100.1 04/28/24 07:58 Nasal Cannula* 3 32 Physical Exam General: Patient appears alert, comfortable and well-appearing. HEENT: Normocephalic, atraumatic, Sclera anicteric, conjunctiva clear, No nasal discharge or congestion. Mucous membranes moist, no tonsillar erythema or exudates. Neck: No cervical lymphadenopathy or masses. No neck stiffness. Lungs: Breath sounds clear bilaterally, no wheezes, rales, or rhonchi. No use of accessory muscles or respiratory distress. Cardiovascular: Regular rate and rhythm, no murmurs, rubs, or gallops. Abdomen: Soft, non-tender, non-distended. Bowel sounds present in all quadrants. No hepatosplenomegaly or masses. Skin: No rash, petechiae, or ecchymosis. Extremities: Left knee swelling s/p arthroscopy with brace. Both shoulder swelling with decreased ROM. Transmetatarsal amputation of both foot. Neurologic: Patient is alert and oriented to person, place, and time. Cranial nerves II-XII intact. Motor strength 5/5 bilaterally in all extremities. Labs/Diagnostic Data Labs Test 04/28/24 11:29 04/27/24 07:53 04/27/24 05:28 04/26/24 00:45 Range/Units POC Glucose 182 H 70-106 mg/dl White Blood Count 11.9 H 4.4-10.8 10^3/uL Red Blood Count 3.20 L 4.5-5.90 10^6/uL Hemoglobin 8.0 L 13.5-17.5 g/dL Hematocrit 25.2 L 41.0-53.0 % Mean Corpuscular Volume 78.8 L 80.0-100.0 fL Mean Corpuscular Hemoglobin 24.9 L 28.0-32.0 pg Mean Corpuscular Hemoglobin Concent 31.6 L 32.0-36.0 g/dL Red Cell Distribution Width 19.3 H 11.8-14.3 % Platelet Count 175 140-450 10^3/uL Mean Platelet Volume 8.8 6.9-10.8 fL Neutrophils (%) (Auto) 89.1 H 37.0-80.0 % Lymphocytes (%) (Auto) 3.7 L 10.0-50.0 % Monocytes (%) (Auto) 5.6 0.0-12.0 % Eosinophils (%) (Auto) 1.2 0.0-7.0 % Basophils (%) (Auto) 0.4 0.0-2.0 % Neutrophils # (Auto) 10.6 H 1.6-8.6 10 ^3/uL Lymphocytes # (Auto) 0.4 0.4-5.4 10 ^3/uL Monocytes # (Auto) 0.7 0-1.3 10 ^3/uL Eosinophils # (Auto) 0.1 0-0.8 10 ^3/uL Basophils # (Auto) 0 0-0.2 10 ^3/uL Nucleated Red Blood Cells 0.1 % Sodium Level 137 136-145 mmol/L Potassium Level 4.1 3.5-5.1 mmol/L Chloride Level 107 98-107 mmol/L Carbon Dioxide Level 22 20-31 mmol/L Anion Gap 8 5-15 Blood Urea Nitrogen 33 H 9-23 mg/dL Creatinine 1.22 0.700-1.30 mg/dL Glomerular Filtration Rate Calc 67 >90 mL/min BUN/Creatinine Ratio 27.0 H 10.0-20.0 Serum Glucose 175 H 74-106 mg/dL Calcium Level 8.3 L 8.7-10.4 mg/dL Phosphorus Level 2.6 2.4-5.1 mg/dL Magnesium Level 2.3 1.6-2.6 mg/dL Total Bilirubin 0.7 0.2-1.0 mg/dL Aspartate Amino Transferase (AST) 55 H 13-40 U/L Alanine Aminotransferase (ALT) 23 7-40 U/L Alkaline Phosphatase 104 46-116 U/L Total Protein 6.1 5.7-8.2 g/dL Albumin 3.0 L 3.2-4.8 g/dL Prothrombin Time 11.0 9.3-11.8 sec Prothrombin Time INR 1.04 0.9-1.15 Activated Partial Thromboplast Time 33.9 24.5-34.5 SEC Lactic Acid Level 2.3 *H 0.4-2.0 mmol/L B-Type Natriuretic Peptide 119.63 0-100 pg/mL Test 04/25/24 13:00 04/25/24 12:04 04/25/24 03:18 04/24/24 18:03 Range/Units Hemoglobin A1c 8.9 H <5.7 % A1C Urine Opiates Screen Pos NEGATIVE Urine Fentanyl Screen Neg NEGATIVE Urine Barbiturates Screen Neg NEGATIVE Urine Phencyclidine Screen Neg NEGATIVE Urine Amphetamines Screen Neg NEGATIVE Urine Benzodiazepines Screen Neg NEGATIVE Urine Cocaine Screen Neg NEGATIVE Urine Cannabinoids Screen Neg NEGATIVE Erythrocyte Sedimentation Rate 92 H 0-20 mm/hr Iron Level 9 L 65-175 ug/dL Total Iron Binding Capacity 214 L 250-425 ug/dL Percent Iron Saturation 4.2 L 20-55 % Triglycerides Level 132 < 150 mg/dL Cholesterol Level 75 < 200 mg/dL LDL Cholesterol 31 < 100 mg/dL HDL Cholesterol 12 L 40-59 mg/dL Troponin I High Sensitivity 5 </=54 ng/L Test 04/24/24 17:50 04/24/24 17:25 04/24/24 17:13 Range/Units Blood Gas Specimen Type Arterial Blood Gas Sample Site Right radial Blood Gas Patient Temperature 37.0 Arterial Blood Date Drawn [id number] Arterial Blood pH 7.418 7.350-7.450 Arterial Blood Partial Pressure CO2 26.7 L 35.0-48.0 mmHg Arterial Blood Partial Pressure O2 57.0 L 83.0-108.0 mmHg Arterial Blood HCO3 16.9 L 21.0-28.0 mmol/L Arterial Blood Oxygen Saturation 87.1 L 94.0-98.0 % Arterial Blood Base Excess -6.4 L -2.0-3.0 mmol/L Arterial Blood Oxyhemoglobin 85.8 L 94.0-98.0 % Arterial Blood Carboxyhemoglobin 1.3 0.5-1.5 % Arterial Blood Methemoglobin 0.2 0.0-1.5 % Mario Test Yes Blood Gas Total Hemoglobin 10.60 L 13.5-17.5 g/dL Blood Gas Modality Room air FiO2 % 21.0 Urine Color Light-yellow Yellow Urine Clarity Clear Clear Urine pH 5.5 5.0-9.0 Urine Specific Thompson 1.031 1.001-1.035 Urine Protein 1+ H Negative Urine Ketones 1+ H Negative Urine Blood 1+ H Negative /uL Urine Nitrite Negative Negative Urine Bilirubin Negative Negative Urine Urobilinogen Normal Negative mg/dL Urine Leukocyte Esterase Trace Negative /uL Urine RBC 5 0 - 3 /hpf Urine WBC 19 0 - 3 /hpf Urine Squamous Epithelial Cells Few <5 /hpf Urine Bacteria None seen None Seen /hpf Urine Glucose 4+ H Normal mg/dL Beta-Hydroxybutyric Acid 1.778 H < 0.4 mmol/L Microbiology Date/Time Source Procedure Growth Status 04/26/24 16:21 Aspirate Gram Stain - Final Complete 04/26/24 16:21 Body Fluid Culture - Final Staphylococcus aureus Complete 04/25/24 13:00 Blood Blood Culture - Final Staphylococcus aureus Complete 04/25/24 12:08 Nose MRSA Screen - Final Complete Assessment Patient is a 63year-old Male with MSSA bacteremia Sepsis septic arthritis of left knee 2/2 MSSA NECK PAIN upper back pain shoulder pain : both h/o meth abuse h/o alcohol abuse former smoker CHF s/p b/l feet transmetatarsal amputation PAD Recommendations s/p knee arthroscopy and wash out by ortho repeat two sets of blood cultures, last 04/23 which is + DC IV Linezolid and Zosyn, start IV cefazolin 2g q 8 hours after blood cx is negative for 48 hours, recommend PIcc line and placement for IV antibiotics shoulder ( right seems boggy) order US of both shoulder to look for fluid, if +, need aspiration to rule out septic joint ( not uncommon in mssa bacteremia to have more than one joint involved) MRI neck/ thoracic spine w contrast ordered need ECHO prognosis gaurded condition is critical crit time 45 min spent. thank you for opportunity to care for the patient. Plan discussed with: Patient HAIDER VAUGHN MD Apr 28, 2024 12:30
[2024-04-28] MEDS: IOHEXOL 300 MG/ML 100ML BOTTLE IJ ONE (14:00)
--- NOTE | 2024-04-28 14:26 | DVH ---
Exam: US LEFT UPPER EXT Date: 04/28/2024 01:37 PM Comparison: US LT LOWER DVT on DOS: 04/24/24 Technique: Targeted sonographic evaluation of the soft tissues of the bilateral shoulders was obtained utilizing grayscale and color Doppler imaging. Findings: Moderate bilateral joint effusions. IMPRESSION: Moderate bilateral joint effusions.
--- NOTE | 2024-04-28 14:26 | DVH ---
Exam: US RIGHT UPPER EXT., US LEFT UPPER EXT Date: 04/28/2024 01:37 PM Comparison: US LT LOWER DVT on DOS: 04/24/24 Technique: Targeted sonographic evaluation of the soft tissues of the bilateral shoulders was obtained utilizing grayscale and color Doppler imaging. Findings: Moderate bilateral joint effusions. IMPRESSION: Moderate bilateral joint effusions.
--- NOTE | 2024-04-28 15:16 | DVH ---
CT NECK WITH CONTRAST Clinical History: RULE OUT SPINAL ABSCESS Comparison: CT HEAD WITHOUT CONTRAST on DOS: 04/25/24, CT HEAD WITHOUT CONTRAST on DOS: 04/24/24 Technique: Multiple contiguous CT images of the neck were obtained with intravenous contrast. These images were reformatted degenerate coronal and sagittal reconstructions. 100 cc is omnipaque 300 cont rast was injected intravenously. Radiation Dose Information: CT Dose: CTDI volume is 26.26 mGy. Dose-length product is 806.25 mGy*cm Findings: There is no discrete soft tissue neck mass or fluid collection . There is no prevertebral soft tissue swelling or edema. There is no discrete paraspinal fluid collection. There are multilevel degenerati ve changes in the cervical spine. There is soft tissue thickening along the right 1st sternocostal joint. There are a few pockets of a ir. There is also focal 2.2 cm hypodense collection just posterior and inferior to the joint (axial i mages 76-80 ). There is no obvious cortical destruction or fragmentation. The findings May relate to degenerative changes with synovial thickening There are no pathologically enlarged cervical lymph nodes. The parotid glands appear within normal li mits. The bilateral submandibular glands appear atrophic, [id number]. The thyroid gland appears within normal limits. The aerodigestive tract appears unremarkable without a discrete mucosal or submucosal lesion. The visualized intracranial contents appear within normal limits. There are moderate emphysematous ch anges in lung apices. The visualized paranasal sinuses and mastoid air cells are also clear. Impression: 1. There is soft tissue thickening along the right 1st sternocostal joint with few pockets of air. Th ere is also a 2.2 cm hypodense collection just posterior and inferior to the joint. There is no obvio us cortical destruction or fragmentation. These findings May relate to degenerative changes with syno vial thickening. Clinical correlation is recommended. 2. There is no discrete soft tissue neck fluid collection. There is no prevertebral soft tissue swell ing or edema. There is no focal paraspinal fluid collection. 3. The bilateral submandibular glands appear atrophic, [id number]-right. HS:Y
[2024-04-28 15:29] LABS: Hemoglobin 7.4 g/dL (13.5-17.5); Mean Corpuscular Hgb Conc. 30.8 g/dL (32.0-36.0)
[2024-04-28 15:31] LABS: Mean Corpuscular Volume 77.9 fL (80.0-100.0); Platelet Count (auto) 161 10^3/uL (140-450); Red Blood Cells 3.09 10^6/uL (4.5-5.90); Red Cell Distribution Width 19.6 % (11.8-14.3); White Blood Cell 11.7 10^3/uL (4.4-10.8)
[2024-04-28 15:33] LABS: Basophils % (manual) 0 (0.0-2.0); Blast Cells 0; Eosinophils % (manual) 0 (0-7); Metamyelocytes % 0; Myelocytes % 0; Promyelocytes % 0; Reactive Lymphocytes 0
[2024-04-28 15:40] LABS: Chloride 109 mmol/L (98-107); Potassium 3.3 mmol/L (3.5-5.1); Sodium 140 mmol/L (136-145)
[2024-04-28 15:41] LABS: Anion Gap 8 (5-15); Calcium 8.3 mg/dL (8.7-10.4); Carbon Dioxide 23 mmol/L (20-31)
[2024-04-28 15:46] LABS: BUN/Creatinine Ratio 22.2 (10.0-20.0); Blood Urea Nitrogen 24 mg/dL (9-23); Glucose 187 mg/dL (74-106)
[2024-04-28] MEDS: ceFAZolin 2 GM/D5W50ml 50 ML IV SCH (15:48)
--- NOTE | 2024-04-28 16:13 | DVH ---
EXAM: CT CT T SPINE WITH CONTRAST INDICATION: RULE OUT SPINAL ABSCESS EXAM DATE: 04/28/2024 02:34 PM COMPARISON: CT HEAD WITHOUT CONTRAST on DOS: 04/25/24, CT CT L KNEE WO CONTRAST on DOS: 04/25/24, CT HEAD WITHOUT CONTRAST on DOS: 04/24/24 TECHNIQUE: Multiple axial CT images of the thoracic spine were obtained using bone algorithm. Axial a nd coronal reformatting was done. Bone and soft tissue windows were reviewed. Radiation Dose Information: CT Dose: CTDI volume is 36.75 mGy. Dose-length product is 1454.15 mGy*cm Findings: There is no evidence of an acute fracture or spondylolisthesis. Age indeterminate mild wedge shaped compression fractures of T9-T11. No evidence of degenerative disc disease. No neuroforaminal narrowing. No spinal canal stenosis. There is a normal thoracic kyphosis. The paraspinal soft tissues appear within normal limits. The vis ualized portions of the abdomen are unremarkable. Trace bilateral pleural effusions, right greater than left. Centrilobular emphysematous changes. No abnormal enhancement or focal fluid collections. C7-T1: Normal T1-T2: Normal T2-T3: Normal T3-T4: Normal T4-T5: Normal T5-T6: Normal T6-T7: Normal T7-T8: Normal T8-T9: Normal T9-T10: Normal T10-T11: Normal T11-T12: Normal T12-L1: Normal Impression: 1. Age indeterminate mild wedge shaped compression fractures of T9-T11. 2. No definite evidence of abnormal enhancement.
[2024-04-28 17:15] LABS: Band Neutrophils % (manual) 2; Large Platelets FEW; Lymphocytes % (manual) 1 (10.0-50.0); Monocytes % (manual) 2 (0-12); Platelet Estimate Adequate
[2024-04-28 17:16] LABS: Hypochromia Slight
[2024-04-28] MEDS: POTASSIUM EFFERVESENT TAB 25 MEQ PO ONE (18:55)
[2024-04-29] VITALS (8 sets, daily range): BP systolic 106–144; BP diastolic 45–64; PULSE 72–85; RESP 16–19; TEMP 98–99.6; O2SAT 91–97
[2024-04-29] MEDS: ceFAZolin 2 GM/D5W50ml 50 ML IV SCH (00:02)
[2024-04-29 07:37] LABS: Basophils # (auto) 0 10 ^3/uL (0-0.2); Basophils % (auto) 0.2 % (0.0-2.0); Eosinophils # (auto) 0.1 10 ^3/uL (0-0.8); Eosinophils % (auto) 0.6 % (0.0-7.0); Hematocrit 23.6 % (41.0-53.0); Hemoglobin 7.3 g/dL (13.5-17.5); Lymphocytes # (auto) 0.5 10 ^3/uL (0.4-5.4); Lymphocytes % (auto) 4.1 % (10.0-50.0); Mean Corpuscular Hemoglobin 24.3 pg (28.0-32.0); Mean Corpuscular Hgb Conc. 30.8 g/dL (32.0-36.0); Monocytes # (auto) 0.5 10 ^3/uL (0-1.3); Monocytes % (auto) 3.7 % (0.0-12.0); Neutrophils # (auto) 11.1 10 ^3/uL (1.6-8.6); Neutrophils % (auto) 91.4 % (37.0-80.0); Platelet Count (auto) 156 10^3/uL (140-450); Red Blood Cells 2.99 10^6/uL (4.5-5.90); Red Cell Distribution Width 19.3 % (11.8-14.3); White Blood Cell 12.2 10^3/uL (4.4-10.8)
[2024-04-29 07:50] LABS: Chloride 111 mmol/L (98-107); Potassium 3.6 mmol/L (3.5-5.1); Sodium 143 mmol/L (136-145)
[2024-04-29 07:51] LABS: Anion Gap 8 (5-15); Calcium 8.3 mg/dL (8.7-10.4); Carbon Dioxide 24 mmol/L (20-31)
[2024-04-29 07:56] LABS: BUN/Creatinine Ratio 21.9 (10.0-20.0); Blood Urea Nitrogen 21 mg/dL (9-23); Glucose 124 mg/dL (74-106)
--- NOTE | 2024-04-29 11:52 | DVHINCON2 ---
Date Seen: Apr 29, 2024 Reason for Consultation Left heel ulcer History of Present Illness 63 yo fell at home several days ago hurting his leg mostly around the knee with complaints of swelling and pain that showed to increase over time making it more and more difficult to ambulate on ed evaluation for trauma patient was also noted to have severely uncontrolled dm which also needed managment and patient was recommended for admission from the ed Past Medical History See H&P Past Surgical History See H&P Family History: Diabetes mellitus G8 MOTHER FHx: kidney disease G8 MOTHER Allergies: Coded Allergies: Hydrocodone (Verified Allergy, Severe, LEG SWELLING, 04/25/24) Codeine (Verified Allergy, Unknown, 04/24/24) Ketorolac Tromethamine (Verified Allergy, Unknown, 04/03/24) Home Meds Active Scripts Ibuprofen Micronized (Ibuprofen) 600 Mg Tab, 600 MG PO BID for 7 Days, #14 TAB Prov:TAMMY ANNE MD 04/07/24 Oxycodone HCl (Oxycodone Hydrochloride) 10 Mg Tab, 10 MG PO TIDPRN PRN for 7 Days, #21 TAB Prov:TAMMY ANNE MD 04/07/24 Oxycodone Hcl (OxyCONTIN ER Tablet) 10 Mg Tb, 1 TAB PO BID for 7 Days, #14 TAB 0 Refills Prov:TAMMY ANNE MD 04/07/24 Tamsulosin Hcl (Flomax) 0.4 Mg Cap, 0.4 MG PO QPM for 30 Days, #30 CAP 0 Refills Prov:TAMMY ANNE MD 04/07/24 Baclofen (Baclofen) 10 Mg Tab, 5 MG PO Q8HR for 30 Days, #45 TAB 0 Refills Prov:TAMMY ANNE MD 04/07/24 Reported Medications Tamsulosin HCl (Tamsulosin Hydrochloride) 0.4 Mg Cap, 0.4 MG PO, CAP 04/04/24 Current Medications Current Medications Medications (Trade) Dose Ordered Sig/Sunny Route PRN Reason Start Time Stop Time Status Last Admin Cefazolin Sodium/ Dextrose 50 ml @ 50 mls/hr Q8HR IV 04/28/24 14:00 04/28/24 20:40 DC 04/28/24 15:48 Cefazolin Sodium/ Dextrose 50 ml @ 50 mls/hr Q8H IV 04/29/24 00:00 04/29/24 09:40 Vital Signs Vital Signs Date Time Temp Pulse Resp B/P (MAP) Pulse Ox O2 Delivery O2 Flow Rate FiO2 04/29/24 08:30 98.7 72 16 120/60 (80) 94 98.7 04/28/24 20:00 Nasal Cannula* 2 28 Physical Exam DERMATOLOGIC EXAM: - Skin is dry and cool to the touch dry bilaterally. - Nails 1-5 of the bilateral foot are thickened, discolored, dystrophic, and tender to palpate with subungual debris - Hair loss noted to bilateral feet - left heel decubitus ulcer VASCULAR EXAM: - DP and PT pulses are palpable bilaterally. - [employer] is brisk to all digits. - Feet are cool to touch compared to lower legs bilaterally. NEUROLOGIC EXAM: - Normal light touch sensation to the superficial peroneal, deep peroneal, sural, saphenous, and tibial nerve branches. - Protective sensation is diminished as tested with a 5.07 10g [place] bilaterally. MUSCULOSKELETAL EXAM: - No gross deformities - Muscle strength is 5/5 and active motion is pain-free and symmetrical bilaterally - No pain or crepitation with passive range of motion bilaterally to all major pedal joints Labs/Diagnostic Data Labs Test 04/29/24 08:16 04/29/24 07:11 04/28/24 15:10 04/27/24 05:28 Range/Units POC Glucose 119 H 70-106 mg/dl White Blood Count 12.2 H 4.4-10.8 10^3/uL Red Blood Count 2.99 L 4.5-5.90 10^6/uL Hemoglobin 7.3 L 13.5-17.5 g/dL Hematocrit 23.6 L 41.0-53.0 % Mean Corpuscular Volume 79.0 L 80.0-100.0 fL Mean Corpuscular Hemoglobin 24.3 L 28.0-32.0 pg Mean Corpuscular Hemoglobin Concent 30.8 L 32.0-36.0 g/dL Red Cell Distribution Width 19.3 H 11.8-14.3 % Platelet Count 156 140-450 10^3/uL Mean Platelet Volume 8.8 6.9-10.8 fL Neutrophils (%) (Auto) 91.4 H 37.0-80.0 % Lymphocytes (%) (Auto) 4.1 L 10.0-50.0 % Monocytes (%) (Auto) 3.7 0.0-12.0 % Eosinophils (%) (Auto) 0.6 0.0-7.0 % Basophils (%) (Auto) 0.2 0.0-2.0 % Neutrophils # (Auto) 11.1 H 1.6-8.6 10 ^3/uL Lymphocytes # (Auto) 0.5 0.4-5.4 10 ^3/uL Monocytes # (Auto) 0.5 0-1.3 10 ^3/uL Eosinophils # (Auto) 0.1 0-0.8 10 ^3/uL Basophils # (Auto) 0 0-0.2 10 ^3/uL Nucleated Red Blood Cells 0.0 % Sodium Level 143 136-145 mmol/L Potassium Level 3.6 3.5-5.1 mmol/L Chloride Level 111 H 98-107 mmol/L Carbon Dioxide Level 24 20-31 mmol/L Anion Gap 8 5-15 Blood Urea Nitrogen 21 9-23 mg/dL Creatinine 0.96 0.700-1.30 mg/dL Glomerular Filtration Rate Calc 89 >90 mL/min BUN/Creatinine Ratio 21.9 H 10.0-20.0 Serum Glucose 124 H 74-106 mg/dL Calcium Level 8.3 L 8.7-10.4 mg/dL Differential Total Cells Counted 100.0 100 Neutrophils % (Manual) 95 H 37.0-80.0 Band Neutrophils % (Manual) 2 Lymphocytes % (Manual) 1 L 10.0-50.0 Monocytes % (Manual) 2 0-12 Eosinophils % (Manual) 0 0-7 Basophils % (Manual) 0 0.0-2.0 Metamyelocytes % (manual) 0 Myelocytes % (Manual) 0 Promyelocytes % (Manual) 0 Blast Cells % (Manual) 0 Reactive Lymphocytes 0 Platelet Estimate Adequate Large Platelets Few Hypochromasia (manual) Slight Microcytosis Slight Phosphorus Level 2.6 2.4-5.1 mg/dL Magnesium Level 2.3 1.6-2.6 mg/dL Total Bilirubin 0.7 0.2-1.0 mg/dL Aspartate Amino Transferase (AST) 55 H 13-40 U/L Alanine Aminotransferase (ALT) 23 7-40 U/L Alkaline Phosphatase 104 46-116 U/L Total Protein 6.1 5.7-8.2 g/dL Albumin 3.0 L 3.2-4.8 g/dL Test 04/26/24 00:45 04/25/24 13:00 04/25/24 12:04 04/25/24 03:18 Range/Units Prothrombin Time 11.0 9.3-11.8 sec Prothrombin Time INR 1.04 0.9-1.15 Activated Partial Thromboplast Time 33.9 24.5-34.5 SEC Lactic Acid Level 2.3 *H 0.4-2.0 mmol/L B-Type Natriuretic Peptide 119.63 0-100 pg/mL Hemoglobin A1c 8.9 H <5.7 % A1C Urine Opiates Screen Pos NEGATIVE Urine Fentanyl Screen Neg NEGATIVE Urine Barbiturates Screen Neg NEGATIVE Urine Phencyclidine Screen Neg NEGATIVE Urine Amphetamines Screen Neg NEGATIVE Urine Benzodiazepines Screen Neg NEGATIVE Urine Cocaine Screen Neg NEGATIVE Urine Cannabinoids Screen Neg NEGATIVE Erythrocyte Sedimentation Rate 92 H 0-20 mm/hr Iron Level 9 L 65-175 ug/dL Total Iron Binding Capacity 214 L 250-425 ug/dL Percent Iron Saturation 4.2 L 20-55 % Triglycerides Level 132 < 150 mg/dL Cholesterol Level 75 < 200 mg/dL LDL Cholesterol 31 < 100 mg/dL HDL Cholesterol 12 L 40-59 mg/dL Test 04/24/24 18:03 04/24/24 17:50 04/24/24 17:25 04/24/24 17:13 Range/Units Troponin I High Sensitivity 5 </=54 ng/L Blood Gas Specimen Type Arterial Blood Gas Sample Site Right radial Blood Gas Patient Temperature 37.0 Arterial Blood Date Drawn [id number] Arterial Blood pH 7.418 7.350-7.450 Arterial Blood Partial Pressure CO2 26.7 L 35.0-48.0 mmHg Arterial Blood Partial Pressure O2 57.0 L 83.0-108.0 mmHg Arterial Blood HCO3 16.9 L 21.0-28.0 mmol/L Arterial Blood Oxygen Saturation 87.1 L 94.0-98.0 % Arterial Blood Base Excess -6.4 L -2.0-3.0 mmol/L Arterial Blood Oxyhemoglobin 85.8 L 94.0-98.0 % Arterial Blood Carboxyhemoglobin 1.3 0.5-1.5 % Arterial Blood Methemoglobin 0.2 0.0-1.5 % Mario Test Yes Blood Gas Total Hemoglobin 10.60 L 13.5-17.5 g/dL Blood Gas Modality Room air FiO2 % 21.0 Urine Color Light-yellow Yellow Urine Clarity Clear Clear Urine pH 5.5 5.0-9.0 Urine Specific [place] 1.031 1.001-1.035 Urine Protein 1+ H Negative Urine Ketones 1+ H Negative Urine Blood 1+ H Negative /uL Urine Nitrite Negative Negative Urine Bilirubin Negative Negative Urine Urobilinogen Normal Negative mg/dL Urine Leukocyte Esterase Trace Negative /uL Urine RBC 5 0 - 3 /hpf Urine WBC 19 0 - 3 /hpf Urine Squamous Epithelial Cells Few <5 /hpf Urine Bacteria None seen None Seen /hpf Urine Glucose 4+ H Normal mg/dL Beta-Hydroxybutyric Acid 1.778 H < 0.4 mmol/L Microbiology Date/Time Source Procedure Growth Status 04/28/24 15:10 Blood Blood Culture - Preliminary Resulted 04/28/24 11:00 Aspirate Gram Stain Pending Resulted 04/28/24 11:00 Aspirate Anaerobic Culture Pending Resulted 04/28/24 11:00 Aspirate Aerobic Culture - Preliminary Resulted 04/25/24 12:08 Nose MRSA Screen - Final Complete Problems(with codes): (1) Rib fracture (2) Alcohol intoxication (3) Dehydration (4) Generalized weakness (5) Hyperglycemia (6) Effusion of knee joint, left (7) Elevated lactic acid level (8) Tibial plateau fracture, left (9) Syncope and collapse (10) Multiple fractures of ribs, right side, initial encounter for closed fracture (11) Frequent falls Plan/Recommendation ASSESSMENT: Patient is a 61-year-old seen on the floor for a left decubitus ulcer PLAN: - The patients chart was reviewed, clinical findings were discussed with the patient, the etiologies of the conditions were discussed in detail, and a treatment plan was agreed to at this time, with both oral and written instructions provided. - reviewed the ulcer on the left heel - discussed with wound care that there is no surgical indication at this point - recommend that we offload the heel and use Betadine prevent infection - patient will need wound care following up with them - no advanced imaging required at this point All questions were answered and concerns addressed to the patient's satisfaction . The patient was given the phone number to the clinic and was told how to make contact with the clinic should any concerns or questions arise. Patient understands that if any questions or concerns arise prior to the next appointment, we should be contacted immediately. FOLLOW-UP: Follow up as needed Plan discussed with: Patient Date of Service: Apr 29, 2024 Billing Provider: CHUCK COLEMAN DPM Common Visit Codes: [id number] INP/OBS CARE (MOD) CHUCK COLEMAN DPM Apr 29, 2024 11:52
--- NOTE | 2024-04-29 15:23 | DVHPN2 ---
Subjective Patient reporting generalized weakness and severe pain to left knee Reviewed: Care Plan, H&P, Labs, Medications, Previous Orders Changes from previous H/P or p: No Changes General: Per HPI Eyes: No Pain, No Vision change, No Conjunctivae inflammation, No Eyelid inflammation, No Other, No Redness ENT: No Ear pain, No Ear discharge, No Nose pain, No Nose discharge, No Nose congestion, No Mouth pain, No Mouth swelling, No Throat pain, No Throat swelling, No Other Cardiovascular: No Chest Pain, No Palpitations, No Orthopnea, No Paroxysmal Noc. Dyspnea, No Edema, No Lt Headedness, No Other Respiratory: No Cough, No Dry, No Shortness of breath, No SOB with excertion, No Wheezing, No Hemoptysis, No Pleuritic Pain, No Sputum, No Other Gastrointestinal: No Nausea, No Vomiting, No Abdominal Pain, No Diarrhea, No Constipation, No Melena, No Hematochezia, No Other Genitourinary: No Dysuria, No Frequency, No Incontinence, No Hematuria, No Retention, No Other Musculoskeletal: No other, No neck pain, No shoulder pain, No arm pain, No back pain, No hand pain, No leg pain, No foot pain Skin: No Rash, No Lesions, No Jaundice, No Bruising, No Other Objective Vitals Vital Signs Date Time Temp Pulse Resp B/P (MAP) Pulse Ox O2 Delivery O2 Flow Rate FiO2 04/29/24 12:30 99.6 79 17 106/64 (78) 93 99.6 04/28/24 20:00 Nasal Cannula* 2 28 Intake/Output Intake and Output 04/29/24 07:00 Intake Total 500 ml Output Total 0 ml Balance 500 ml Intake Oral 350 ml IV Total 150 ml Output Urine Total 0 ml # Voids 6 # Bowel Movements 2 General Appearance: Alert, Oriented X3, Cooperative HEENT: Atraumatic, PERRLA Lungs: Clear to auscultation, Normal air movement Cardiovascular: Normal S1, Normal S2 Extremities: Other (Dressing to left lower extremity dry and intact.) Neuro: Sensation intact Skin: Dry, Intact Psych/Mental Status: Mental status NL, Mood NL Medications Current Medications Medications Dose Ordered Sig/Sunny Route Start Time Stop Time Status Last Admin Dose Admin Tamsulosin HCl 0.4 mg DAILY PO 04/25/24 10:00 04/29/24 09:40 0.4 MG Lorazepam 0.5 mg Q6HP PRN PO 04/24/24 22:15 Al Hydrox/Mg Hydrox/Simethicone 30 ml Q6HP PRN PO 04/24/24 22:15 Docusate Sodium 100 mg BIDPRN PRN PO 04/24/24 22:15 Acetaminophen 650 mg Q6HP PRN PO 04/24/24 22:15 04/25/24 23:44 650 MG Temazepam 15 mg QHSP PRN PO 04/24/24 22:15 04/27/24 01:14 15 MG Ondansetron HCl 4 mg Q4HP PRN IV 04/24/24 22:15 Enoxaparin Sodium 30 mg DAILY SC 04/25/24 10:00 UNV Diagnostic Test (Pha) 1 strip IQ4HR 04/25/24 00:00 04/29/24 12:09 1 STRIP Insulin Human Regular IQ4HR SC 04/25/24 00:00 04/29/24 12:16 4 UNITS Dextrose 50 ml UD PRN IV 04/24/24 22:15 Enoxaparin Sodium 40 mg DAILY SC 04/25/24 10:00 04/29/24 09:40 40 MG Oxycodone/ Acetaminophen 2 tab Q6HP PRN PO 04/25/24 12:00 04/29/24 09:41 2 TAB Hydromorphone HCl 0.5 mg Q4HPRN PRN IV 04/26/24 13:15 04/29/24 12:10 0.5 MG Insulin Glargine 15 units HS SC 04/27/24 22:00 04/28/24 22:34 15 UNITS Cefazolin Sodium/ Dextrose 50 ml @ 50 mls/hr Q8H IV 04/29/24 00:00 04/29/24 09:40 50 MLS/HR Laboratory Results Laboratory Tests 04/29/24 07:11 Chemistry Test 04/29/24 07:11 Calcium Level 8.3 mg/dL (8.7-10.4) L Urinalysis Test 04/24/24 17:25 Urine Color Light-yellow (Yellow) Urine Clarity Clear (Clear) Urine pH 5.5 (5.0-9.0) Urine Specific [place] 1.031 (1.001-1.035) Urine Protein 1+ (Negative) H Urine Ketones 1+ (Negative) H Urine Blood 1+ /uL (Negative) H Urine Nitrite Negative (Negative) Urine Bilirubin Negative (Negative) Urine Urobilinogen Normal mg/dL (Negative) Urine Leukocyte Esterase Trace /uL (Negative) Urine RBC 5 /hpf (0 - 3) Urine WBC 19 /hpf (0 - 3) Urine Squamous Epithelial Cells Few /hpf (<5) Urine Bacteria None seen /hpf (None Seen) Urine Glucose 4+ mg/dL (Normal) H Microbiology Microbiology Date/Time Source Procedure Growth Status 04/28/24 15:10 Blood Blood Culture - Preliminary Resulted 04/28/24 11:00 Aspirate Gram Stain Pending Resulted 04/28/24 11:00 Aspirate Anaerobic Culture - Preliminary Resulted 04/28/24 11:00 Aspirate Aerobic Culture - Preliminary Resulted 04/25/24 12:08 Nose MRSA Screen - Final Complete Labs and/or images reviewed: Labs reviewed by me, Image(s) reviewed by me Assessment/Plan Assessment/Plan Impression: -sepsis -septic arthritis -acute on chronic decompensated systolic heart failure -syncope with collapse -history of probable coronary artery disease with CABG -diabetes mellitus, uncontrolled -acute kidney injury, vasomotor nephropathy -chronic pain syndrome with chronic opiate use -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 CT scan of spine in neck reviewed. Discussion weighed with the patient regarding findings of patient was left knee arthroplasty, patient was as well as needed for possible RYAN given systemic infection. Patient also reports that his left heel wound has been chronic, identified at [facility] prior to coming to the hospital. -ID consultation: Recommendations reviewed -cardiology consultation : Assess for need for RYAN -orthopedic surgery consultation -antibiotic therapy: Deescalated to Ancef -PUD, DVT prophylaxis -blood cultures: prelim with Staph Aures -continue regular insulin sliding scale, aggressive scale -repeat labs in a.m. Total time spent with patient discussing and formulating plan of care: 35 minutes. This medical document was created using an electronic medical record system with [employer] system. Although this document has been carefully reviewed, there may still be some phonetic and typographical errors. These areas are purely typographical due to imperfections of the software programs, and do not reflect any compromise in the patient's medical care. Plan discussed with: Patient, Other (RN) My Orders Orders - XOCHITL GRAY NP Procedure Category Date Status Time Apply Barrier Cream DENIS 04/28/24 In Process 13:00 Apply/Change Dressing DENIS 04/28/24 In Process 13:00 * Dietary Consult CONS 04/28/24 Transmitted 17:04 Apply/Change Dressing DENIS 04/28/24 In Process 13:00 Specialty Bed Mattress ORDERS 04/28/24 Transmitted 13:00 Date of Service: Apr 29, 2024 Billing Provider: XOCHITL GRAY NP Common Visit Codes: [id number] INP/OBS CARE(HIGH) XOCHITL GRAY NP Apr 29, 2024 15:23
--- NOTE | 2024-04-29 16:34 | DVHPN2 ---
Progress Note - Dictate Date Seen: Apr 29, 2024 Medical Necessity Reason Pt with a Central, PICC or Fol: No Subjective Patient was lying comfortably in bed during my evaluation and reports continued knee pain that is somewhat improved since surgery. He has remained in bed and denied any other complaints or concerns during my evaluation. vital signs Vital Sign Date Time Temp Pulse Resp B/P (MAP) Pulse Ox O2 Delivery O2 Flow Rate FiO2 04/29/24 15:30 98.9 76 19 141/60 (87) 95 98.9 04/28/24 20:00 Nasal Cannula* 2 28 Total Intake and Output 04/28/24 04/28/24 04/29/24 15:00 23:00 07:00 Intake Total 150 ml 350 ml Output Total 0 ml Balance 150 ml 350 ml medications Current Medications Medications Dose Ordered Sig/Sunny Route Start Time Stop Time Status Last Admin Dose Admin Tamsulosin HCl 0.4 mg DAILY PO 04/25/24 10:00 04/29/24 09:40 0.4 MG Lorazepam 0.5 mg Q6HP PRN PO 04/24/24 22:15 Al Hydrox/Mg Hydrox/Simethicone 30 ml Q6HP PRN PO 04/24/24 22:15 Docusate Sodium 100 mg BIDPRN PRN PO 04/24/24 22:15 Acetaminophen 650 mg Q6HP PRN PO 04/24/24 22:15 04/25/24 23:44 650 MG Temazepam 15 mg QHSP PRN PO 04/24/24 22:15 04/27/24 01:14 15 MG Ondansetron HCl 4 mg Q4HP PRN IV 04/24/24 22:15 Enoxaparin Sodium 30 mg DAILY SC 04/25/24 10:00 UNV Diagnostic Test (Pha) 1 strip IQ4HR 04/25/24 00:00 04/29/24 12:09 1 STRIP Insulin Human Regular IQ4HR SC 04/25/24 00:00 04/29/24 12:16 4 UNITS Dextrose 50 ml UD PRN IV 04/24/24 22:15 Enoxaparin Sodium 40 mg DAILY SC 04/25/24 10:00 04/29/24 09:40 40 MG Oxycodone/ Acetaminophen 2 tab Q6HP PRN PO 04/25/24 12:00 04/29/24 09:41 2 TAB Hydromorphone HCl 0.5 mg Q4HPRN PRN IV 04/26/24 13:15 04/29/24 12:10 0.5 MG Insulin Glargine 15 units HS SC 04/27/24 22:00 04/28/24 22:34 15 UNITS Cefazolin Sodium/ Dextrose 50 ml @ 50 mls/hr Q8H IV 04/29/24 00:00 04/29/24 09:40 50 MLS/HR objective A&O x4 in no acute distress Knee range of motion grossly limited with pain on movement Dressing clean, dry, and intact No distal edema but left calf tender to palpation Neurovascularly intact with cap refill less than 2 seconds laboratory and microbiology Laboratory Tests 04/29/24 07:11 Test 04/29/24 07:11 Range/Units Serum Glucose 124 H 74-106 mg/dL Assessment/Plan Left knee tibial plateau fracture Continue current management as well as pain control. Advised patient to remain in his knee immobilizer and to remain nonweightbearing on his left leg for approximately four weeks. Pending recommendations by Infectious Disease once culture results have returned. We will be ordering a venous Doppler ultrasound of his left lower extremity to rule out any possible DVT as he had some calf tenderness on palpation during my physical exam and has remained nonambulatory for several days putting him in an increased risk for developing a DVT. We will continue observing the patient and recommend he follow up with our office in 10- 14 days for his 1st postoperative evaluation once he has been discharged. He understood and agreed. Dietary Evaluation Review Comments: 1) Refer pt to a RD/CDE upon DC 2) Continue current plan of care Expected Outcomes/Goals: 1) Pt to see a RD/CDE after DC 2) Pt labs to improve 3) F/U in 3-5 days Plan discussed with: Patient SAUCEDOOLI VILLA Suresh RIDDLE Apr 29, 2024 16:34
--- NOTE | 2024-04-29 16:58 | DVHPN2 ---
Progress Note - Dictate Date Seen: Apr 29, 2024 Medical Necessity Reason Pt with a Central, PICC or Fol: No Subjective Patient still complains of shoulders/ back pain vital signs Vital Sign Date Time Temp Pulse Resp B/P (MAP) Pulse Ox O2 Delivery O2 Flow Rate FiO2 04/29/24 15:30 98.9 76 19 141/60 (87) 95 98.9 04/28/24 20:00 Nasal Cannula* 2 28 Total Intake and Output 04/28/24 04/28/24 04/29/24 15:00 23:00 07:00 Intake Total 150 ml 350 ml Output Total 0 ml Balance 150 ml 350 ml medications Current Medications Medications Dose Ordered Sig/Sunny Route Start Time Stop Time Status Last Admin Dose Admin Tamsulosin HCl 0.4 mg DAILY PO 04/25/24 10:00 04/29/24 09:40 0.4 MG Lorazepam 0.5 mg Q6HP PRN PO 04/24/24 22:15 Al Hydrox/Mg Hydrox/Simethicone 30 ml Q6HP PRN PO 04/24/24 22:15 Docusate Sodium 100 mg BIDPRN PRN PO 04/24/24 22:15 Acetaminophen 650 mg Q6HP PRN PO 04/24/24 22:15 04/25/24 23:44 650 MG Temazepam 15 mg QHSP PRN PO 04/24/24 22:15 04/27/24 01:14 15 MG Ondansetron HCl 4 mg Q4HP PRN IV 04/24/24 22:15 Enoxaparin Sodium 30 mg DAILY SC 04/25/24 10:00 UNV Diagnostic Test (Pha) 1 strip IQ4HR 04/25/24 00:00 04/29/24 12:09 1 STRIP Insulin Human Regular IQ4HR SC 04/25/24 00:00 04/29/24 12:16 4 UNITS Dextrose 50 ml UD PRN IV 04/24/24 22:15 Enoxaparin Sodium 40 mg DAILY SC 04/25/24 10:00 04/29/24 09:40 40 MG Oxycodone/ Acetaminophen 2 tab Q6HP PRN PO 04/25/24 12:00 04/29/24 09:41 2 TAB Hydromorphone HCl 0.5 mg Q4HPRN PRN IV 04/26/24 13:15 04/29/24 12:10 0.5 MG Insulin Glargine 15 units HS SC 04/27/24 22:00 04/28/24 22:34 15 UNITS Cefazolin Sodium/ Dextrose 50 ml @ 50 mls/hr Q8H IV 04/29/24 00:00 04/29/24 09:40 50 MLS/HR objective General alert and oriented HEENT: Atraumatic Neck: No swelling Lungs: Equal air entry and clear to auscultation Cardiovascular: S2 heard no murmur Abdomen: Soft nontender, no organomegaly, nondistended ext: bilateral shoulder effusion decreased ROM of upper ext b/l transmetatarsal amputation Neuro: Alert and oriented, no focal deficit Psych: Normal mood and affect laboratory and microbiology Laboratory Tests 04/29/24 07:11 Test 04/29/24 07:11 Range/Units Serum Glucose 124 H 74-106 mg/dL Assessment/Plan A 63 yo Male with MSSa bacteremia : persistent septic arthritis of left knee 2/2 MSSA concern for septic sternocostal joint with air foci bilateral shoulder pain : r/o septic joint infection h/o meth abuse h/o alcohol abuse former smoker CHF s/p b/l feet transmetatarsal amputation PAD recommendations I had a very lengthy discussion with ortho and primary team, patient is persistently bacteremic due poorly source control of infection vs metastatic infection Dr Adams, agreed to reevaluate the patient. IR cannot to aspiration of joints ( shoulder until friday) hence discussed with ortho: ( not uncommon in mssa bacteremia to have more than one joint involved): send cell count and cultures he also has septic sternocostal joint infection with foci of air/ abscess s/p knee arthroscopy and wash out by ortho ( 04/28) blood cx +ve" 04/25. 04/28 and no repeat 2 sets ordered cont IV cefazolin 2g q 8 hours, due to severe infection, will add IV ertapenem for dual coverage, monitor platelets RYAN is neg for vegetation, but in persistent infection, need repeat RYAN in few days MRI neck/ thoracic spine w contrast ordered but not done as his pacemkaer is not compatible ORdered arceo CT chest/ abd and pelvis with IV contrast condition is critical crit time 75 min spent in evaluating, managing and coordinating care with different physicians. plan discussed with primary / specialist thank you for opportunity to care for the patient. Dietary Evaluation Review Comments: 1) Refer pt to a RD/CDE upon DC 2) Continue current plan of care Expected Outcomes/Goals: 1) Pt to see a RD/CDE after DC 2) Pt labs to improve 3) F/U in 3-5 days Plan discussed with: Other HAIDER VAUGHN MD Apr 29, 2024 16:58
--- NOTE | 2024-04-29 21:52 | DVH ---
EXAM: US LT LOWER DVT Clinical History: LLE calf tenderness on palpation s/p left tib fx Comparison: US LT LOWER DVT on DOS: 04/24/24 Technique: Duplex Doppler evaluation of the deep venous systems of the left lower extremity from the common femo ral veins to the popliteal veins including color Doppler and spectral/pulsed waveform analysis was pe rformed. Findings: No visible intraluminal venous thrombus. No evidence of incompressibility or abnormal color or spectr al Doppler flow visualized in the deep left lower extremity veins. Proximal greater saphenous vein is grossly unremarkable. Impression: 1. No sonographic evidence of deep venous thrombosis throughout the left lower extremity from the pop liteal vein to the common femoral vein.
[2024-04-30] VITALS (7 sets, daily range): BP systolic 130–146; BP diastolic 41–58; PULSE 73–82; RESP 14–20; TEMP 97.8–100.4; O2SAT 91–97
[2024-04-30 06:39] LABS: Basophils # (auto) 0 10 ^3/uL (0-0.2); Eosinophils # (auto) 0.1 10 ^3/uL (0-0.8); Lymphocytes # (auto) 0.5 10 ^3/uL (0.4-5.4); Monocytes # (auto) 0.5 10 ^3/uL (0-1.3); Red Blood Cells 3.01 10^6/uL (4.5-5.90)
[2024-04-30 06:41] LABS: Basophils % (auto) 0.4 % (0.0-2.0); Eosinophils % (auto) 1.1 % (0.0-7.0); Hematocrit 23.5 % (41.0-53.0); Hemoglobin 7.4 g/dL (13.5-17.5); Lymphocytes % (auto) 3.8 % (10.0-50.0); Mean Corpuscular Hemoglobin 24.7 pg (28.0-32.0); Mean Corpuscular Hgb Conc. 31.6 g/dL (32.0-36.0); Monocytes % (auto) 3.6 % (0.0-12.0); Neutrophils # (auto) 11.7 10 ^3/uL (1.6-8.6); Neutrophils % (auto) 91.1 % (37.0-80.0); Platelet Count (auto) 160 10^3/uL (140-450); Red Cell Distribution Width 19.6 % (11.8-14.3); White Blood Cell 12.9 10^3/uL (4.4-10.8)
[2024-04-30 06:53] LABS: Anion Gap 8 (5-15); Carbon Dioxide 24 mmol/L (20-31); Chloride 107 mmol/L (98-107); Potassium 3.2 mmol/L (3.5-5.1); Sodium 139 mmol/L (136-145)
[2024-04-30 06:54] LABS: Calcium 7.9 mg/dL (8.7-10.4)
[2024-04-30 06:59] LABS: BUN/Creatinine Ratio 20.2 (10.0-20.0); Blood Urea Nitrogen 17 mg/dL (9-23); Glucose 157 mg/dL (74-106)
--- NOTE | 2024-04-30 07:42 | DVHPN2 ---
Progress Note - Dictate Date Seen: Apr 30, 2024 Medical Necessity Reason Pt with a Central, PICC or Fol: No Subjective Patient was lying comfortably in bed during my evaluation and reports continued knee pain that is only improved somewhat with the help of pain medication. He has remained in bed and denied any other complaints or concerns during my evaluation. vital signs Vital Sign Date Time Temp Pulse Resp B/P (MAP) Pulse Ox O2 Delivery O2 Flow Rate FiO2 04/30/24 06:15 84 18 129/52 04/30/24 05:00 98.5 91 98.5 04/29/24 20:00 Nasal Cannula* 2 28 Total Intake and Output 04/29/24 04/29/24 04/30/24 15:00 23:00 07:00 Intake Total 50 ml 470 ml 550 ml Output Total 400 ml 800 ml Balance 50 ml 70 ml -250 ml medications Current Medications Medications Dose Ordered Sig/Sunny Route Start Time Stop Time Status Last Admin Dose Admin Tamsulosin HCl 0.4 mg DAILY PO 04/25/24 10:00 04/29/24 09:40 0.4 MG Lorazepam 0.5 mg Q6HP PRN PO 04/24/24 22:15 Al Hydrox/Mg Hydrox/Simethicone 30 ml Q6HP PRN PO 04/24/24 22:15 Docusate Sodium 100 mg BIDPRN PRN PO 04/24/24 22:15 Acetaminophen 650 mg Q6HP PRN PO 04/24/24 22:15 04/25/24 23:44 650 MG Temazepam 15 mg QHSP PRN PO 04/24/24 22:15 04/27/24 01:14 15 MG Ondansetron HCl 4 mg Q4HP PRN IV 04/24/24 22:15 Enoxaparin Sodium 30 mg DAILY SC 04/25/24 10:00 UNV Diagnostic Test (Pha) 1 strip IQ4HR 04/25/24 00:00 04/30/24 04:12 1 STRIP Insulin Human Regular IQ4HR SC 04/25/24 00:00 04/30/24 04:14 4 UNITS Dextrose 50 ml UD PRN IV 04/24/24 22:15 Enoxaparin Sodium 40 mg DAILY SC 04/25/24 10:00 04/29/24 09:40 40 MG Oxycodone/ Acetaminophen 2 tab Q6HP PRN PO 04/25/24 12:00 04/29/24 18:03 2 TAB Hydromorphone HCl 0.5 mg Q4HPRN PRN IV 04/26/24 13:15 04/30/24 05:45 0.5 MG Insulin Glargine 15 units HS SC 04/27/24 22:00 04/29/24 21:33 15 UNITS Cefazolin Sodium/ Dextrose 50 ml @ 50 mls/hr Q8H IV 04/29/24 00:00 04/29/24 23:47 50 MLS/HR objective A&O x4 in no acute distress Knee range of motion grossly limited with pain on movement Dressing clean, dry, and intact No distal edema but left calf tender to palpation Neurovascularly intact with cap refill less than 2 seconds laboratory and microbiology Laboratory Tests 04/30/24 06:10 Test 04/30/24 06:10 Range/Units Serum Glucose 157 H 74-106 mg/dL Assessment/Plan Left knee tibial plateau fracture Continue current management as well as pain control. Advised patient to remain in his knee immobilizer and to remain nonweightbearing on his left leg for approximately four weeks then may start transitioning to partial weight-bearing. Pending recommendations by Infectious Disease once culture results have returned. Venous Doppler ultrasound was negative for any signs of DVT. We will continue observing the patient and recommend he follow up with our office in 10- 14 days for his 1st postoperative evaluation once he has been discharged. He understood and agreed. Dietary Evaluation Review Comments: 1) Refer pt to a RD/CDE upon DC 2) Continue current plan of care Expected Outcomes/Goals: 1) Pt to see a RD/CDE after DC 2) Pt labs to improve 3) F/U in 3-5 days Plan discussed with: Patient SAUCEDO,JENREAL RIDDLE Apr 30, 2024 07:42
--- NOTE | 2024-04-30 12:44 | DVHPN2 ---
Progress Note - Dictate Date Seen: Apr 30, 2024 Medical Necessity Reason Pt with a Central, PICC or Fol: No Subjective Patient still complains of continued knee pain. pt reports feeling somewhat better with pain medication 04/29/2024 : extremity venous studies came back normal NO DVT vital signs Vital Sign Date Time Temp Pulse Resp B/P (MAP) Pulse Ox O2 Delivery O2 Flow Rate FiO2 04/30/24 09:49 78 17 147/67 04/30/24 09:00 97.8 94 97.8 04/29/24 20:00 Nasal Cannula* 2 28 Total Intake and Output 04/29/24 04/29/24 04/30/24 15:00 23:00 07:00 Intake Total 50 ml 470 ml 550 ml Output Total 400 ml 800 ml Balance 50 ml 70 ml -250 ml medications Current Medications Medications Dose Ordered Sig/Sunny Route Start Time Stop Time Status Last Admin Dose Admin Tamsulosin HCl 0.4 mg DAILY PO 04/25/24 10:00 04/30/24 09:20 0.4 MG Lorazepam 0.5 mg Q6HP PRN PO 04/24/24 22:15 Al Hydrox/Mg Hydrox/Simethicone 30 ml Q6HP PRN PO 04/24/24 22:15 Docusate Sodium 100 mg BIDPRN PRN PO 04/24/24 22:15 Acetaminophen 650 mg Q6HP PRN PO 04/24/24 22:15 04/25/24 23:44 650 MG Temazepam 15 mg QHSP PRN PO 04/24/24 22:15 04/27/24 01:14 15 MG Ondansetron HCl 4 mg Q4HP PRN IV 04/24/24 22:15 Enoxaparin Sodium 30 mg DAILY SC 04/25/24 10:00 UNV Diagnostic Test (Pha) 1 strip IQ4HR 04/25/24 00:00 04/30/24 09:20 1 STRIP Insulin Human Regular IQ4HR SC 04/25/24 00:00 04/30/24 12:17 4 UNITS Dextrose 50 ml UD PRN IV 04/24/24 22:15 Enoxaparin Sodium 40 mg DAILY SC 04/25/24 10:00 04/30/24 09:21 40 MG Oxycodone/ Acetaminophen 2 tab Q6HP PRN PO 04/25/24 12:00 04/30/24 12:18 2 TAB Hydromorphone HCl 0.5 mg Q4HPRN PRN IV 04/26/24 13:15 04/30/24 09:49 0.5 MG Insulin Glargine 15 units HS SC 04/27/24 22:00 04/29/24 21:33 15 UNITS Cefazolin Sodium/ Dextrose 50 ml @ 50 mls/hr Q8H IV 04/29/24 00:00 04/30/24 09:20 50 MLS/HR objective General alert and oriented HEENT: Atraumatic Neck: No swelling Lungs: Equal air entry and clear to auscultation Cardiovascular: S2 heard no murmur Abdomen: Soft nontender, no organomegaly, nondistended ext: bilateral shoulder effusion decreased ROM of upper ext b/l transmetatarsal amputation left knee brace + Neuro: Alert and oriented, no focal deficit Psych: Normal mood and affect laboratory and microbiology Laboratory Tests 04/30/24 06:10 Test 04/30/24 06:10 Range/Units Serum Glucose 157 H 74-106 mg/dL Assessment/Plan A 63 yo Male with MSSa bacteremia : persistent septic arthritis of left knee 2/2 MSSA concern for septic sternocostal joint with air foci bilateral shoulder pain : r/o septic joint infection h/o meth abuse h/o alcohol abuse former smoker CHF s/p b/l feet transmetatarsal amputation PAD recommendations I had a very lengthy discussion with ortho and primary team, patient is persistently bacteremic due poorly source control of infection vs metastatic infection Dr Adams, agreed to reevaluate the patient. IR cannot to aspiration of joints ( shoulder until friday) hence discussed with ortho: ( not uncommon in mssa bacteremia to have more than one joint involved): send cell count and cultures he also has septic sternocostal joint infection with foci of air/ abscess s/p knee arthroscopy and wash out by ortho ( 04/28) blood cx +ve" 04/25. 04/28 and no repeat 2 sets ordered cont IV cefazolin 2g q 8 hours, due to severe infection, will add IV ertapenem for dual coverage, monitor platelets RYAN is neg for vegetation, but in persistent infection, need repeat RYAN in few days MRI neck/ thoracic spine w contrast ordered but not done as his pacemkaer is not compatible ORdered arceo CT chest/ abd and pelvis with IV contrast condition is critical crit time 75 min spent in evaluating, managing and coordinating care with different physicians. plan discussed with primary / specialist thank you for opportunity to care for the patient. Dietary Evaluation Review Comments: 1) Refer pt to a RD/CDE upon DC 2) Continue current plan of care Expected Outcomes/Goals: 1) Pt to see a RD/CDE after DC 2) Pt labs to improve 3) F/U in 3-5 days Plan discussed with: Other HAIDER VAUGHN MD Apr 30, 2024 12:44
--- NOTE | 2024-04-30 12:48 | DVHPN2 ---
Subjective Patient reporting generalized weakness and severe pain to left knee Reviewed: Care Plan, H&P, Labs, Medications, Previous Orders Changes from previous H/P or p: No Changes General: Per HPI Eyes: No Pain, No Vision change, No Conjunctivae inflammation, No Eyelid inflammation, No Other, No Redness ENT: No Ear pain, No Ear discharge, No Nose pain, No Nose discharge, No Nose congestion, No Mouth pain, No Mouth swelling, No Throat pain, No Throat swelling, No Other Cardiovascular: No Chest Pain, No Palpitations, No Orthopnea, No Paroxysmal Noc. Dyspnea, No Edema, No Lt Headedness, No Other Respiratory: No Cough, No Dry, No Shortness of breath, No SOB with excertion, No Wheezing, No Hemoptysis, No Pleuritic Pain, No Sputum, No Other Gastrointestinal: No Nausea, No Vomiting, No Abdominal Pain, No Diarrhea, No Constipation, No Melena, No Hematochezia, No Other Genitourinary: No Dysuria, No Frequency, No Incontinence, No Hematuria, No Retention, No Other Musculoskeletal: No other, No neck pain, No shoulder pain, No arm pain, No back pain, No hand pain, No leg pain, No foot pain Skin: No Rash, No Lesions, No Jaundice, No Bruising, No Other Objective Vitals Vital Signs Date Time Temp Pulse Resp B/P (MAP) Pulse Ox O2 Delivery O2 Flow Rate FiO2 04/30/24 09:49 78 17 147/67 04/30/24 09:00 97.8 94 97.8 04/29/24 20:00 Nasal Cannula* 2 28 Intake/Output Intake and Output 04/30/24 07:00 Intake Total 1070 ml Output Total 1200 ml Balance -130 ml Intake Oral 920 ml IV Total 150 ml Output Urine Total 1200 ml # Voids 2 General Appearance: Alert, Oriented X3, Cooperative HEENT: Atraumatic, PERRLA Lungs: Clear to auscultation, Normal air movement Cardiovascular: Normal S1, Normal S2 Extremities: Other (Dressing to left lower extremity dry and intact.) Neuro: Sensation intact Skin: Dry, Intact Psych/Mental Status: Mental status NL, Mood NL Medications Current Medications Medications Dose Ordered Sig/Sunny Route Start Time Stop Time Status Last Admin Dose Admin Tamsulosin HCl 0.4 mg DAILY PO 04/25/24 10:00 04/30/24 09:20 0.4 MG Lorazepam 0.5 mg Q6HP PRN PO 04/24/24 22:15 Al Hydrox/Mg Hydrox/Simethicone 30 ml Q6HP PRN PO 04/24/24 22:15 Docusate Sodium 100 mg BIDPRN PRN PO 04/24/24 22:15 Acetaminophen 650 mg Q6HP PRN PO 04/24/24 22:15 04/25/24 23:44 650 MG Temazepam 15 mg QHSP PRN PO 04/24/24 22:15 04/27/24 01:14 15 MG Ondansetron HCl 4 mg Q4HP PRN IV 04/24/24 22:15 Enoxaparin Sodium 30 mg DAILY SC 04/25/24 10:00 UNV Diagnostic Test (Pha) 1 strip IQ4HR 04/25/24 00:00 04/30/24 09:20 1 STRIP Insulin Human Regular IQ4HR SC 04/25/24 00:00 04/30/24 12:17 4 UNITS Dextrose 50 ml UD PRN IV 04/24/24 22:15 Enoxaparin Sodium 40 mg DAILY SC 04/25/24 10:00 04/30/24 09:21 40 MG Oxycodone/ Acetaminophen 2 tab Q6HP PRN PO 04/25/24 12:00 04/30/24 12:18 2 TAB Hydromorphone HCl 0.5 mg Q4HPRN PRN IV 04/26/24 13:15 04/30/24 09:49 0.5 MG Insulin Glargine 15 units HS SC 04/27/24 22:00 04/29/24 21:33 15 UNITS Cefazolin Sodium/ Dextrose 50 ml @ 50 mls/hr Q8H IV 04/29/24 00:00 04/30/24 09:20 50 MLS/HR Laboratory Results Laboratory Tests 04/30/24 06:10 Chemistry Test 04/30/24 06:10 Calcium Level 7.9 mg/dL (8.7-10.4) L Urinalysis Test 04/24/24 17:25 Urine Color Light-yellow (Yellow) Urine Clarity Clear (Clear) Urine pH 5.5 (5.0-9.0) Urine Specific [place] 1.031 (1.001-1.035) Urine Protein 1+ (Negative) H Urine Ketones 1+ (Negative) H Urine Blood 1+ /uL (Negative) H Urine Nitrite Negative (Negative) Urine Bilirubin Negative (Negative) Urine Urobilinogen Normal mg/dL (Negative) Urine Leukocyte Esterase Trace /uL (Negative) Urine RBC 5 /hpf (0 - 3) Urine WBC 19 /hpf (0 - 3) Urine Squamous Epithelial Cells Few /hpf (<5) Urine Bacteria None seen /hpf (None Seen) Urine Glucose 4+ mg/dL (Normal) H Microbiology Microbiology Date/Time Source Procedure Growth Status 04/28/24 15:10 Blood Blood Culture - Preliminary Staphylococcus aureus Resulted 04/28/24 11:00 Aspirate Gram Stain - Final Resulted 04/28/24 11:00 Aspirate Anaerobic Culture - Preliminary Resulted 04/28/24 11:00 Aerobic Culture - Final Staphylococcus aureus Resulted 04/25/24 12:08 Nose MRSA Screen - Final Complete Labs and/or images reviewed: Labs reviewed by me, Image(s) reviewed by me Assessment/Plan Assessment/Plan Impression: -sepsis -septic arthritis -acute on chronic decompensated systolic heart failure -syncope with collapse -history of probable coronary artery disease with CABG -diabetes mellitus, uncontrolled -acute kidney injury, vasomotor nephropathy -chronic pain syndrome with chronic opiate use -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 Pending shoulder aspirations -ID consultation: Recommendations reviewed -cardiology consultation : Assess for need for RYAN -orthopedic surgery consultation -antibiotic therapy: Deescalated to Ancef -PUD, DVT prophylaxis -blood cultures: Staph aureus. Staph aureus in knee aspirin -continue regular insulin sliding scale, aggressive scale -repeat labs in a.m. Total time spent with patient discussing and formulating plan of care: 35 minutes. This medical document was created using an electronic medical record system with [employer] dictation system. Although this document has been carefully reviewed, there may still be some phonetic and typographical errors. These areas are purely typographical due to imperfections of the software programs, and do not reflect any compromise in the patient's medical care. Plan discussed with: Patient, Other (RN) My Orders Orders - XOCHITL GRAY NP Procedure Category Date Status Time Complete Blood Count LAB 05/01/24 Verified 05:00 Complete Blood Count LAB 05/02/24 Verified 05:00 Basic Metabolic Panel LAB 05/01/24 Verified 05:00 Basic Metabolic Panel LAB 05/02/24 Verified 05:00 * Radiation Therapy CONS 04/29/24 Transmitted Consult 15:54 Potassium Effervesent PHA 04/30/24 Verified Tab (Klor-Con/Ef) 12:45 Date of Service: Apr 30, 2024 Billing Provider: XOCHITL GRAY NP Common Visit Codes: [id number] INP/OBS CARE(HIGH) XOCHITL GRAY NP Apr 30, 2024 12:48
[2024-04-30] MEDS: POTASSIUM EFFERVESENT TAB 25 MEQ PO ONE (14:05)
--- NOTE | 2024-04-30 17:02 | DVHPN2 ---
Progress Note - Dictate Date Seen: Apr 30, 2024 Medical Necessity Reason Pt with a Central, PICC or Fol: No Subjective Patient was lying comfortably in bed during my evaluation and reports continued knee pain that is only improved somewhat with the help of pain medication. Patient is complaining of bilateral shoulder pain that has been occurring for several weeks but his left shoulder is hurting worse than his right. He denied any other complaints or concerns during my evaluation. vital signs Vital Sign Date Time Temp Pulse Resp B/P (MAP) Pulse Ox O2 Delivery O2 Flow Rate FiO2 04/30/24 14:06 79 16 125/63 04/30/24 13:00 100.4 94 100.4 04/29/24 20:00 Nasal Cannula* 2 28 Total Intake and Output 04/29/24 04/29/24 04/30/24 15:00 23:00 07:00 Intake Total 50 ml 470 ml 550 ml Output Total 400 ml 800 ml Balance 50 ml 70 ml -250 ml medications Current Medications Medications Dose Ordered Sig/Sunny Route Start Time Stop Time Status Last Admin Dose Admin Tamsulosin HCl 0.4 mg DAILY PO 04/25/24 10:00 04/30/24 09:20 0.4 MG Lorazepam 0.5 mg Q6HP PRN PO 04/24/24 22:15 Al Hydrox/Mg Hydrox/Simethicone 30 ml Q6HP PRN PO 04/24/24 22:15 Docusate Sodium 100 mg BIDPRN PRN PO 04/24/24 22:15 Acetaminophen 650 mg Q6HP PRN PO 04/24/24 22:15 04/25/24 23:44 650 MG Temazepam 15 mg QHSP PRN PO 04/24/24 22:15 04/27/24 01:14 15 MG Ondansetron HCl 4 mg Q4HP PRN IV 04/24/24 22:15 Enoxaparin Sodium 30 mg DAILY SC 04/25/24 10:00 UNV Diagnostic Test (Pha) 1 strip IQ4HR 04/25/24 00:00 04/30/24 16:07 1 STRIP Insulin Human Regular IQ4HR SC 04/25/24 00:00 04/30/24 12:17 4 UNITS Dextrose 50 ml UD PRN IV 04/24/24 22:15 Enoxaparin Sodium 40 mg DAILY SC 04/25/24 10:00 04/30/24 09:21 40 MG Oxycodone/ Acetaminophen 2 tab Q6HP PRN PO 04/25/24 12:00 04/30/24 12:18 2 TAB Hydromorphone HCl 0.5 mg Q4HPRN PRN IV 04/26/24 13:15 04/30/24 14:06 0.5 MG Insulin Glargine 15 units HS SC 04/27/24 22:00 04/29/24 21:33 15 UNITS Cefazolin Sodium/ Dextrose 50 ml @ 50 mls/hr Q8H IV 04/29/24 00:00 04/30/24 16:07 50 MLS/HR objective A&O x4 in no acute distress Knee range of motion grossly limited with pain on movement Dressing clean, dry, and intact No distal edema but left calf tender to palpation Neurovascularly intact with cap refill less than 2 seconds Right shoulder range of motion flexion 180, abduction 170, external rotation 20, internal rotation to buttocks with pain on all movements as well as mild swelling and tenderness to the glenohumeral joint. Left shoulder range of motion grossly limited with pain on slight movement with generalized swelling, tenderness to palpation along the glenohumeral joint, and warm to the touch Patient also tender to palpation to bilateral SC joints with left side being worse than the right. laboratory and microbiology Laboratory Tests 04/30/24 06:10 Test 04/30/24 06:10 Range/Units Serum Glucose 157 H 74-106 mg/dL Assessment/Plan Left knee tibial plateau fracture Continue current management as well as pain control. Advised patient to remain in his knee immobilizer and to remain nonweightbearing on his left leg for approximately four weeks then may start transitioning to partial weight-bearing. Pending recommendations by Infectious Disease once culture results have returned. I had a lengthy discussion with the patient regarding nonoperative versus operative management and after discussing his case with Dr. Adams we have recommended a bilateral shoulder irrigation and debridement with possible sternoclavicular joint I and D and possible repeat left knee I and D. I discussed all of the risks and complications involved with surgery including but not limited to bleeding, infection, nerve injury, chronic pain, nonunion, malunion, need for further surgery, blood clots, DVT, PE, cardiac and pulmonary complications, and even . He understood and agreed to proceed with the surgery. We will plan to undergo surgery tomorrow if schedule allows and patient remains medically stable. Thank you for allowing us to participate in the care of your patient. Dietary Evaluation Review Comments: 1) Refer pt to a RD/CDE upon DC 2) Continue current plan of care Expected Outcomes/Goals: 1) Pt to see a RD/CDE after DC 2) Pt labs to improve 3) F/U in 3-5 days Plan discussed with: Patient OLI SAUCEDO Apr 30, 2024 17:02
--- NOTE | 2024-04-30 23:05 | DVH ---
Exam: CT CT CHEST/AB/PL W CON- IV ONLY History: persistent bacteremia, concern for multiple focus of infecto Comparison Study: None available at time of dictation. Technique: Multidetector CT of the chest, abdomen and pelvis was performed from lower neck to pubic s ymphysis. Intravenous contrast was administered during this examination. Axial, coronal and sagittal multiplanar reformats were performed by the technologist on a separate workstation. Radiation Dose Information: CT Dose: CTDI volume is 20.74 mGy. Dose-length product is 1542.87 mGy*cm Omnipaque 350: 100 mL. Findings: Lower neck: There is a 2.7 x 2.3 cm rounded fluid collection posterior to the right subclavian vein and right 1st rib. With a tissue density l 40.41 cm. May represent hematoma or abscess. Lungs: Small bilateral areas of atelectasis and small pleural effusions. Scattered patchy ground-glas s infiltrates bilaterally Heart/Vascular Structures: Pacemaker is noted over the left chest Lymph Nodes: No adenopathy Pleura: Mild pleural thickening posteriorly and small pleural effusions in the lung bases. Liver: The liver is normal in size. No focal lesions. Normal hepatic vascular enhancement. Gallbladder and Biliary Tree: Unremarkable Spleen: 2 splenule posterior to the spleen. Pancreas: The pancreas is normal in appearance without focal lesions or abnormal enhancement. Adrenal Glands: Unremarkable Kidneys: Kidneys demonstrate normal symmetric enhancement without focal lesions, calculi or hydroneph rosis. Bladder: Unremarkable Bowel: The stomach is grossly normal in appearance. Small bowel and colon are normal in caliber and d istribution. The appendix is not visualized; however, no secondary findings of acute appendicitis id entified. Ascites: Absent Lymphadenopathy: No mesenteric, retroperitoneal or periportal lymphadenopathy. Abdominal Wall and Mesentery: Unremarkable. Vasculature: The visualized abdominal aorta is normal in size and caliber. Abdominal and pelvic vess els demonstrate normal enhancement. Pelvic Organs: Unremarkable Musculoskeletal: No aggressive focal bony lesions, acute fractures or dislocation. Sternal wire sutur es in place. IMPRESSION: 1. Small fluid collection at the junction of the 1st rib in the manubrium and inferior to the subclav breanna vein on the right measuring 2.3 x 2.7 cm may represent a small hematoma or abscess. 2. Mild pleural thickening and pleural effusion noted posteriorly in both lung bases right worse than left with some pulmonary consolidation anteriorly to the fluid collection on the right. May represen t atelectasis. 3. Scattered patchy bilateral ground-glass infiltrates. 4. No findings of bowel obstruction. 5. Gallbladder is mildly distended with no calcifications. 6. There is no nephrolithiasis or hydronephrosis. HS:Y All CT scans at this medical facility are performed using dose modulation techniques as appropriate t o a performed exam including the following: Automated exposure control was utilized; adjustment of th e MA and/or KV according to patient size; and use of iterative reconstruction technique.
[2024-05-01] VITALS (8 sets, daily range): BP systolic 133–152; BP diastolic 41–57; PULSE 77–99; RESP 16–20; TEMP 98–99.8; O2SAT 90–99
[2024-05-01] MEDS: LORazepam 0.5 MG TAB PO PRN (04:28)
[2024-05-01 06:05] LABS: Basophils # (auto) 0 10 ^3/uL (0-0.2); Basophils % (auto) 0.3 % (0.0-2.0); Eosinophils # (auto) 0.1 10 ^3/uL (0-0.8); Lymphocytes # (auto) 0.6 10 ^3/uL (0.4-5.4); Monocytes # (auto) 0.5 10 ^3/uL (0-1.3); Nucleated Red Blood Cells % 0.1 %; Platelet Count (auto) 175 10^3/uL (140-450)
[2024-05-01 06:06] LABS: Chloride 106 mmol/L (98-107); Potassium 3.2 mmol/L (3.5-5.1); Sodium 140 mmol/L (136-145)
[2024-05-01 06:07] LABS: Anion Gap 9 (5-15); Carbon Dioxide 25 mmol/L (20-31)
[2024-05-01 06:10] LABS: Eosinophils % (auto) 0.9 % (0.0-7.0); Hemoglobin 7.8 g/dL (13.5-17.5); Mean Corpuscular Hemoglobin 24.5 pg (28.0-32.0); Mean Corpuscular Hgb Conc. 31.4 g/dL (32.0-36.0); Mean Corpuscular Volume 78.1 fL (80.0-100.0); Monocytes % (auto) 4.1 % (0.0-12.0); Neutrophils # (auto) 10.5 10 ^3/uL (1.6-8.6); Neutrophils % (auto) 89.7 % (37.0-80.0); White Blood Cell 11.7 10^3/uL (4.4-10.8)
[2024-05-01 06:12] LABS: BUN/Creatinine Ratio 18.1 (10.0-20.0); Blood Urea Nitrogen 15 mg/dL (9-23); Glucose 139 mg/dL (74-106)
[2024-05-01] MEDS ORDERED: MIDAZOLAM HCL 2MG/2ML 2ml VIAL (1mg/ml) ONE (09:04)
[2024-05-01] MEDS ORDERED: fentaNYL CITRATE 100 MCG/2 ML VL ONE ×2 (09:04→10:36)
[2024-05-01] MEDS ORDERED: HYDROmorphone HCL 2 MG/ML VL/or syr IV PRN ×3 (11:30)
--- NOTE | 2024-05-01 11:54 | DVHPN2 ---
Progress Note - Dictate Date Seen: May 01, 2024 Medical Necessity Reason Pt with a Central, PICC or Fol: No Subjective Patient still complains of continued knee pain and bilateral shoulder pain that has been occurring for several weeks. His left shoulder is hurting worse than his right. Patient reports feeling somewhat better with pain medication. 04/29/2024 : extremity venous studies came back normal NO DVT vital signs Vital Sign Date Time Temp Pulse Resp B/P (MAP) Pulse Ox O2 Delivery O2 Flow Rate FiO2 05/01/24 06:48 68 20 119/63 05/01/24 05:00 98.4 98 98.4 04/30/24 20:00 Nasal Cannula* 2 28 Total Intake and Output 04/30/24 04/30/24 05/01/24 15:00 23:00 07:00 Intake Total 700 ml Output Total 500 ml Balance 200 ml medications Current Medications Medications Dose Ordered Sig/Sunny Route Start Time Stop Time Status Last Admin Dose Admin Tamsulosin HCl 0.4 mg DAILY PO 04/25/24 10:00 04/30/24 09:20 0.4 MG Lorazepam 0.5 mg Q6HP PRN PO 04/24/24 22:15 Al Hydrox/Mg Hydrox/Simethicone 30 ml Q6HP PRN PO 04/24/24 22:15 Docusate Sodium 100 mg BIDPRN PRN PO 04/24/24 22:15 Acetaminophen 650 mg Q6HP PRN PO 04/24/24 22:15 04/25/24 23:44 650 MG Temazepam 15 mg QHSP PRN PO 04/24/24 22:15 04/27/24 01:14 15 MG Ondansetron HCl 4 mg Q4HP PRN IV 04/24/24 22:15 Enoxaparin Sodium 30 mg DAILY SC 04/25/24 10:00 UNV Diagnostic Test (Pha) 1 strip IQ4HR 04/25/24 00:00 05/01/24 08:09 1 STRIP Insulin Human Regular IQ4HR SC 04/25/24 00:00 05/01/24 00:00 8 UNITS Dextrose 50 ml UD PRN IV 04/24/24 22:15 Enoxaparin Sodium 40 mg DAILY SC 04/25/24 10:00 04/30/24 09:21 40 MG Oxycodone/ Acetaminophen 2 tab Q6HP PRN PO 04/25/24 12:00 04/30/24 12:18 2 TAB Hydromorphone HCl 0.5 mg Q4HPRN PRN IV 04/26/24 13:15 05/01/24 06:18 0.5 MG Insulin Glargine 15 units HS SC 04/27/24 22:00 04/30/24 22:00 15 UNITS Cefazolin Sodium/ Dextrose 50 ml @ 50 mls/hr Q8H IV 04/29/24 00:00 05/01/24 08:09 50 MLS/HR Hydromorphone HCl 0.5 mg Q2HP PRN IV 05/01/24 11:30 05/01/24 11:31 UNV Hydromorphone HCl 0.5 mg Q10M PRN IV 05/01/24 11:30 05/01/24 12:11 UNV Hydromorphone HCl 0.25 mg Q10M PRN IV 05/01/24 11:30 05/01/24 12:01 UNV objective General alert and oriented HEENT: Atraumatic Neck: No swelling Lungs: Equal air entry and clear to auscultation Cardiovascular: S2 heard no murmur Abdomen: Soft nontender, no organomegaly, nondistended ext: bilateral shoulder effusion decreased ROM of upper ext b/l transmetatarsal amputation left knee brace + Neuro: Alert and oriented, no focal deficit Psych: Normal mood and affect laboratory and microbiology Laboratory Tests 05/01/24 05:05 Test 05/01/24 05:05 Range/Units Serum Glucose 139 H 74-106 mg/dL Assessment/Plan Patient is a 63year-old Male with MSSA bacteremia Sepsis septic arthritis of left knee 2/2 MSSA NECK PAIN upper back pain shoulder pain : both h/o meth abuse h/o alcohol abuse former smoker CHF s/p b/l feet transmetatarsal amputation PAD Recommendations Dr Adams did wash out shoulders/ again left knee ( he reported it was infected). s/p knee arthroscopy and wash out by ortho repeat two sets of blood cultures, last 04/23 which is + cont IV cefazolin 2g q 8 hours , will add IV Ertapenen 1g daily for dual coverage after blood cx is negative for 48 hours, recommend PIcc line and placement for IV antibiotics shoulder ( right seems boggy) order US of both shoulder to look for fluid, if +, need aspiration to rule out septic joint ( not uncommon in mssa bacteremia to have more than one joint involved) MRI neck/ thoracic spine w contrast ordered need ECHO prognosis gaurded condition is critical crit time 45 min spent. thank you for opportunity to care for the patient. Dietary Evaluation Review Comments: 1) Refer pt to a RD/CDE upon DC 2) Continue current plan of care Expected Outcomes/Goals: 1) Pt to see a RD/CDE after DC 2) Pt labs to improve 3) F/U in 3-5 days Plan discussed with: Patient HAIDER VAUGHN MD May 01, 2024 11:54
--- NOTE | 2024-05-01 13:35 | DVHOP2 ---
Operative Report - 2 Report Details Date: 05/01/24 Preop Diagnosis: Bilateral shoulders septic arthritis, left sternoclavicular joint septic arthritis, left knee septic arthritis Postop Diagnosis: Bilateral shoulder effusion, left sternoclavicular joint effusion, left knee effusion Surgeon: Reena Adams MD Anesthesiologist: ANALY Anesthesia: General, Regional Consent: The patient was informed of the risks and benefits of the procedure. These include but are not limited to complications of anesthesia, postoperative infection, incomplete relief of symptoms, recurrence of symptoms, damage to blood vessels, nerves and tendons, deep venous thrombosis, pulmonary embolism and possible need for repeat surgery in the future. Complications: None Estimated Blood Loss: Less than 20 mL Indications for Surgery: The patient is a 63-year-old male who was admitted with a suspicion of left knee septic arthritis. Clinical and radiological evaluation demonstrated nondisplaced lateral tibial plateau fracture. However aspiration of the knee showed some organisms and he was taken to the operating room for arthroscopic irrigation and debridement by Dr. Simpson. As per the infectious disease doctor, there was concern that he has some other sources of infection as well. Ultrasound and CT scan images showed some effusion in both his shoulders. On examination, he had significant loss of range of motion on the left side. Right side had good range of motion with mild to moderate pain. He also had significant tenderness to palpation on the left sternoclavicular joint. He continued to have significant pain in the left knee joint. Nonoperative and operative management options were discussed. Interventional Radiology guided aspiration was not available until Friday. Based on the feedback from the ID doctor, it was decided to do aspiration and arthroscopic irrigation and debridement of both shoulder joints and the left knee joint and possible open irrigation and debridement of the left sternoclavicular joint as well. Pros and cons were discussed. Benefits, risks and treatment alternatives were discussed. Specific complications of the surgery such as neurovascular injury, infection, arthrofibrosis, loss of limb or life were discussed. The patient decided to proceed with the surgical option. Name of Procedure Performed Bilateral shoulder arthroscopy, synovial debridement, irrigation, left knee repeat irrigation and debridement, left sternoclavicular joint aspiration and mini open irrigation and debridement Procedure Details Procedure Details: The patient was identified in the preoperative holding area and the surgical site was marked. The consent was verified. He was brought into the operating room and placed supine on the operating table. General anesthesia was administered. Intravenous antibiotics were given. Both the shoulders were prepped and draped in the usual sterile manner. A time-out was called to confirm that anterior patient, the nature of surgery, the site of surgery, the otolith implants x-rays and allergies to medications. He was brought up in the beach chair position. All the bony prominences were appropriately padded. A time-out was called to confirm that anterior patient, the nature of surgery, the site of surgery, the availability of implants and x-rays and allergies to medications. The left shoulder was 1st addressed as that was the more painful side. A standard posterior portal was established. A 30 degree scope was inserted. A standard anterior portal established, a probe was inserted and the findings were as follows 1. [id number] effusion, mild turbidity, no jennyfer pus noted 2. Minimal synovitis, 3. 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 Massive rotator cuff tear 5. Degenerative labral tears 6. No loose bodies, no floating debris Based on these findings, it was considered that this is not obviously infected but irrigation was still given with around 3 L of normal saline. Similar steps were repeated for the right side. The findings were as follows 1. Mild effusion, clear 2. No synovitis 3. Grade 2/3chondromalacia of the humeral head and glenoid 4. Intact rotator cuff 5. Degenerative labral tears 6. No loose bodies Thorough irrigation was given based on these findings with 3 L of saline. Cultures were obtained from both shoulders. Next, the sternoclavicular joint was aspirated. Some 2-3 mL of blood was noted. It was hard to say if this was infected or not. It was sent for cultures anyways. I made a small incision the skin and the subcutaneous tissue were dissected. The anterior sternoclavicular joint capsule was incised. Thorough irrigation was given again. No additional fluid or pus was noted The lateral portal for the knee was opened up. The scope was inserted and the findings were as follows 1. Healing/healed lateral tibial minimally displaced fracture 2. Significant tricompartmental arthritis 3. No evidence of pus or floating debris 4. No loose bodies Thorough irrigation was given approximately 2 L for the left knee for repeat washout. All the skin incisions were closed with 2-0 nylon. Sterile dressing was applied. Brace was not considered to be necessary for the shoulders. Condition Good Disposition Still a Patient REENA ADAMS MD May 01, 2024 13:35
--- NOTE | 2024-05-01 14:35 | DVHPN2 ---
Subjective The patient is seen and examined at bedside. Complain of pain in tired. Reviewed: Care Plan, H&P, Labs, Medications, Previous Orders Changes from previous H/P or p: No Changes General: Per HPI Eyes: No Pain, No Vision change, No Conjunctivae inflammation, No Eyelid inflammation, No Other, No Redness ENT: No Ear pain, No Ear discharge, No Nose pain, No Nose discharge, No Nose congestion, No Mouth pain, No Mouth swelling, No Throat pain, No Throat swelling, No Other Cardiovascular: No Chest Pain, No Palpitations, No Orthopnea, No Paroxysmal Noc. Dyspnea, No Edema, No Lt Headedness, No Other Respiratory: No Cough, No Dry, No Shortness of breath, No SOB with excertion, No Wheezing, No Hemoptysis, No Pleuritic Pain, No Sputum, No Other Gastrointestinal: No Nausea, No Vomiting, No Abdominal Pain, No Diarrhea, No Constipation, No Melena, No Hematochezia, No Other Genitourinary: No Dysuria, No Frequency, No Incontinence, No Hematuria, No Retention, No Other Musculoskeletal: No other, No neck pain, No shoulder pain, No arm pain, No back pain, No hand pain, No leg pain, No foot pain Skin: No Rash, No Lesions, No Jaundice, No Bruising, No Other Objective Vitals Vital Signs Date Time Temp Pulse Resp B/P (MAP) Pulse Ox O2 Delivery O2 Flow Rate FiO2 05/01/24 14:02 72 18 177/55 05/01/24 12:30 98.0 96 98.0 05/01/24 10:40 Mask 6.0 05/01/24 10:40 96 Intake/Output Intake and Output 05/01/24 07:00 Intake Total 700 ml Output Total 500 ml Balance 200 ml Intake Oral 600 ml IV Total 100 ml Output Urine Total 500 ml # Voids 2 # Bowel Movements 3 General Appearance: Alert, Oriented X3, Cooperative HEENT: Atraumatic, PERRLA Lungs: Clear to auscultation, Normal air movement Cardiovascular: Normal S1, Normal S2 Extremities: Other (Dressing to left lower extremity dry and intact.) Neuro: Sensation intact Skin: Dry, Intact Psych/Mental Status: Mental status NL, Mood NL Medications Current Medications Medications Dose Ordered Sig/Sunny Route Start Time Stop Time Status Last Admin Dose Admin Tamsulosin HCl 0.4 mg DAILY PO 04/25/24 10:00 04/30/24 09:20 0.4 MG Lorazepam 0.5 mg Q6HP PRN PO 04/24/24 22:15 Al Hydrox/Mg Hydrox/Simethicone 30 ml Q6HP PRN PO 04/24/24 22:15 Docusate Sodium 100 mg BIDPRN PRN PO 04/24/24 22:15 Acetaminophen 650 mg Q6HP PRN PO 04/24/24 22:15 04/25/24 23:44 650 MG Temazepam 15 mg QHSP PRN PO 04/24/24 22:15 04/27/24 01:14 15 MG Ondansetron HCl 4 mg Q4HP PRN IV 04/24/24 22:15 Enoxaparin Sodium 30 mg DAILY SC 04/25/24 10:00 UNV Diagnostic Test (Pha) 1 strip IQ4HR 04/25/24 00:00 05/01/24 13:58 1 STRIP Insulin Human Regular IQ4HR SC 04/25/24 00:00 05/01/24 00:00 8 UNITS Dextrose 50 ml UD PRN IV 04/24/24 22:15 Enoxaparin Sodium 40 mg DAILY SC 04/25/24 10:00 04/30/24 09:21 40 MG Oxycodone/ Acetaminophen 2 tab Q6HP PRN PO 04/25/24 12:00 05/01/24 12:10 2 TAB Hydromorphone HCl 0.5 mg Q4HPRN PRN IV 04/26/24 13:15 05/01/24 14:02 0.5 MG Insulin Glargine 15 units HS SC 04/27/24 22:00 04/30/24 22:00 15 UNITS Cefazolin Sodium/ Dextrose 50 ml @ 50 mls/hr Q8H IV 04/29/24 00:00 05/01/24 08:09 50 MLS/HR Laboratory Results Laboratory Tests 05/01/24 05:05 Chemistry Test 05/01/24 05:05 Calcium Level 8.0 mg/dL (8.7-10.4) L Urinalysis Test 04/24/24 17:25 Urine Color Light-yellow (Yellow) Urine Clarity Clear (Clear) Urine pH 5.5 (5.0-9.0) Urine Specific [place] 1.031 (1.001-1.035) Urine Protein 1+ (Negative) H Urine Ketones 1+ (Negative) H Urine Blood 1+ /uL (Negative) H Urine Nitrite Negative (Negative) Urine Bilirubin Negative (Negative) Urine Urobilinogen Normal mg/dL (Negative) Urine Leukocyte Esterase Trace /uL (Negative) Urine RBC 5 /hpf (0 - 3) Urine WBC 19 /hpf (0 - 3) Urine Squamous Epithelial Cells Few /hpf (<5) Urine Bacteria None seen /hpf (None Seen) Urine Glucose 4+ mg/dL (Normal) H Microbiology Microbiology Date/Time Source Procedure Growth Status 04/28/24 15:10 Blood Blood Culture - Final Staphylococcus aureus Complete 04/28/24 11:00 Aspirate Gram Stain - Final Resulted 04/28/24 11:00 Aspirate Anaerobic Culture - Preliminary Resulted 04/28/24 11:00 Aerobic Culture - Final Staphylococcus aureus Resulted 04/25/24 12:08 Nose MRSA Screen - Final Complete Labs and/or images reviewed: Labs reviewed by me Assessment/Plan Assessment/Plan -sepsis -septic arthritis -acute on chronic decompensated systolic heart failure -syncope with collapse -history of probable coronary artery disease with CABG -diabetes mellitus, uncontrolled -acute kidney injury, vasomotor nephropathy -chronic pain syndrome with chronic opiate use -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 The patient had status post shoulder aspiration, I/D left shoulder. Continuing Ancef. Appreciate ID specialist and orthopedic input Waiting for bolt sawyer to see the patient for possible RYAN. -PUD, DVT prophylaxis -blood cultures: Staph aureus. Staph aureus in knee aspirate -continue regular insulin sliding scale, aggressive scale -repeat labs in a.m. This medical document was created using an electronic medical record system with [employer] dictation system. Although this document has been carefully reviewed, there may still be some phonetic and typographical errors. These areas are purely typographical due to imperfections of the software programs, and do not reflect any compromise in the patient's medical care. Plan discussed with: Patient Date of Service: May 01, 2024 Billing Provider: FRANCA ENCINAS MD Common Visit Codes: [id number] INP/OBS CARE(HIGH) FRANCA ENCINAS MD May 01, 2024 14:35
[2024-05-01] MEDS: BUPIVACAINE HCL 50 ML ONE (18:28)
[2024-05-01] MEDS: ALBUMIN 5% 250 ML IV ONE (18:28)
[2024-05-01] MEDS: ONDANSETRON HCL 4 MG/2 ML VIAL IV ONE (18:28)
[2024-05-01] MEDS: IOHEXOL 350 MG/ML 100ML IJ ONE (18:28)
[2024-05-02] VITALS (8 sets, daily range): BP systolic 117–146; BP diastolic 47–74; PULSE 58–94; RESP 17–20; TEMP 97.3–100.3; O2SAT 90–100
[2024-05-02 07:31] LABS: Basophils # (auto) 0.1 10 ^3/uL (0-0.2); Basophils % (auto) 0.4 % (0.0-2.0); Eosinophils # (auto) 0.1 10 ^3/uL (0-0.8); Eosinophils % (auto) 0.8 % (0.0-7.0); Hematocrit 25.5 % (41.0-53.0); Hemoglobin 7.6 g/dL (13.5-17.5); Lymphocytes # (auto) 0.5 10 ^3/uL (0.4-5.4); Mean Corpuscular Hemoglobin 24.2 pg (28.0-32.0); Mean Corpuscular Hgb Conc. 29.8 g/dL (32.0-36.0); Mean Corpuscular Volume 81.3 fL (80.0-100.0); Monocytes # (auto) 0.5 10 ^3/uL (0-1.3); Monocytes % (auto) 4.2 % (0.0-12.0); Neutrophils # (auto) 11.7 10 ^3/uL (1.6-8.6); Neutrophils % (auto) 90.6 % (37.0-80.0); Nucleated Red Blood Cells % 0.1 %; Platelet Count (auto) 197 10^3/uL (140-450); Red Blood Cells 3.13 10^6/uL (4.5-5.90); Red Cell Distribution Width 19.7 % (11.8-14.3); White Blood Cell 12.9 10^3/uL (4.4-10.8)
[2024-05-02 07:35] LABS: Chloride 109 mmol/L (98-107); Potassium 3.9 mmol/L (3.5-5.1); Sodium 142 mmol/L (136-145)
[2024-05-02 07:36] LABS: Anion Gap 11 (5-15); Carbon Dioxide 22 mmol/L (20-31)
[2024-05-02 07:37] LABS: Calcium 7.6 mg/dL (8.7-10.4)
[2024-05-02 07:41] LABS: Glucose 80 mg/dL (74-106)
[2024-05-02 07:42] LABS: BUN/Creatinine Ratio 14.7 (10.0-20.0); Blood Urea Nitrogen 11 mg/dL (9-23)
--- NOTE | 2024-05-02 10:07 | DVHPN2 ---
Subjective The patient is seen and examined at bedside. Complain of shoulder pain, knee pain. No fever or chills overnight. Reviewed: Care Plan, H&P, Labs, Medications, Previous Orders Changes from previous H/P or p: No Changes General: Per HPI Eyes: No Pain, No Vision change, No Conjunctivae inflammation, No Eyelid inflammation, No Other, No Redness ENT: No Ear pain, No Ear discharge, No Nose pain, No Nose discharge, No Nose congestion, No Mouth pain, No Mouth swelling, No Throat pain, No Throat swelling, No Other Cardiovascular: No Chest Pain, No Palpitations, No Orthopnea, No Paroxysmal Noc. Dyspnea, No Edema, No Lt Headedness, No Other Respiratory: No Cough, No Dry, No Shortness of breath, No SOB with excertion, No Wheezing, No Hemoptysis, No Pleuritic Pain, No Sputum, No Other Gastrointestinal: No Nausea, No Vomiting, No Abdominal Pain, No Diarrhea, No Constipation, No Melena, No Hematochezia, No Other Genitourinary: No Dysuria, No Frequency, No Incontinence, No Hematuria, No Retention, No Other Musculoskeletal: No other, No neck pain, No shoulder pain, No arm pain, No back pain, No hand pain, No leg pain, No foot pain Skin: No Rash, No Lesions, No Jaundice, No Bruising, No Other Objective Vitals Vital Signs Date Time Temp Pulse Resp B/P (MAP) Pulse Ox O2 Delivery O2 Flow Rate FiO2 05/02/24 06:37 99.9 05/02/24 05:58 82 18 110/57 05/02/24 05:00 90 05/01/24 20:00 Room Air* 0 21 Intake/Output Intake and Output 05/02/24 07:00 Intake Total 505 ml Balance 505 ml Intake Oral 405 ml IV Total 100 ml # Voids 6 # Bowel Movements 1 General Appearance: Alert, Oriented X3, Cooperative HEENT: Atraumatic, PERRLA Lungs: Clear to auscultation, Normal air movement Cardiovascular: Normal S1, Normal S2 Extremities: Other (Dressing to left lower extremity dry and intact.) Neuro: Sensation intact Skin: Dry, Intact Psych/Mental Status: Mental status NL, Mood NL Medications Current Medications Medications Dose Ordered Sig/Sunny Route Start Time Stop Time Status Last Admin Dose Admin Tamsulosin HCl 0.4 mg DAILY PO 04/25/24 10:00 05/02/24 10:03 0.4 MG Lorazepam 0.5 mg Q6HP PRN PO 04/24/24 22:15 Al Hydrox/Mg Hydrox/Simethicone 30 ml Q6HP PRN PO 04/24/24 22:15 Docusate Sodium 100 mg BIDPRN PRN PO 04/24/24 22:15 Acetaminophen 650 mg Q6HP PRN PO 04/24/24 22:15 05/02/24 05:26 650 MG Ondansetron HCl 4 mg Q4HP PRN IV 04/24/24 22:15 Enoxaparin Sodium 30 mg DAILY SC 04/25/24 10:00 UNV Diagnostic Test (Pha) 1 strip IQ4HR 04/25/24 00:00 05/02/24 07:50 1 STRIP Insulin Human Regular IQ4HR SC 04/25/24 00:00 05/01/24 23:30 8 UNITS Dextrose 50 ml UD PRN IV 04/24/24 22:15 Enoxaparin Sodium 40 mg DAILY SC 04/25/24 10:00 05/02/24 10:02 40 MG Oxycodone/ Acetaminophen 2 tab Q6HP PRN PO 04/25/24 12:00 05/02/24 06:42 2 TAB Hydromorphone HCl 0.5 mg Q4HPRN PRN IV 04/26/24 13:15 05/02/24 05:28 0.5 MG Insulin Glargine 15 units HS SC 04/27/24 22:00 05/01/24 21:27 15 UNITS Cefazolin Sodium/ Dextrose 50 ml @ 50 mls/hr Q8H IV 04/29/24 00:00 05/02/24 07:48 50 MLS/HR Laboratory Results Laboratory Tests 05/02/24 06:52 Chemistry Test 05/02/24 06:52 Calcium Level 7.6 mg/dL (8.7-10.4) L Urinalysis Test 04/24/24 17:25 Urine Color Light-yellow (Yellow) Urine Clarity Clear (Clear) Urine pH 5.5 (5.0-9.0) Urine Specific [place] 1.031 (1.001-1.035) Urine Protein 1+ (Negative) H Urine Ketones 1+ (Negative) H Urine Blood 1+ /uL (Negative) H Urine Nitrite Negative (Negative) Urine Bilirubin Negative (Negative) Urine Urobilinogen Normal mg/dL (Negative) Urine Leukocyte Esterase Trace /uL (Negative) Urine RBC 5 /hpf (0 - 3) Urine WBC 19 /hpf (0 - 3) Urine Squamous Epithelial Cells Few /hpf (<5) Urine Bacteria None seen /hpf (None Seen) Urine Glucose 4+ mg/dL (Normal) H Microbiology Microbiology Date/Time Source Procedure Growth Status 04/30/24 17:53 Blood Blood Culture - Preliminary NO GROWTH AFTER 24 HOURS OF INCUBATION. Resulted 04/28/24 11:00 Aspirate Gram Stain - Final Resulted 04/28/24 11:00 Aspirate Anaerobic Culture - Preliminary Resulted 04/28/24 11:00 Aerobic Culture - Final Staphylococcus aureus Resulted 04/25/24 12:08 Nose MRSA Screen - Final Complete Labs and/or images reviewed: Labs reviewed by me Assessment/Plan Assessment/Plan sepsis -septic arthritis -acute on chronic decompensated systolic heart failure -syncope with collapse -history of probable coronary artery disease with CABG -diabetes mellitus, uncontrolled -acute kidney injury, vasomotor nephropathy -chronic pain syndrome with chronic opiate use -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 The patient had status post shoulder aspiration, I/D left shoulder. Continuing Ancef. Appreciate ID specialist and orthopedic input Waiting for head charger to see the patient for possible RYAN. -PUD, DVT prophylaxis -blood cultures: Staph aureus. Staph aureus in knee aspirate Continuing IV antibiotic Ancef -continue regular insulin sliding scale, aggressive scale -repeat labs in a.m. Plan discussed with: Patient Date of Service: May 02, 2024 Billing Provider: FRANCA ENCINAS MD Common Visit Codes: [id number] INP/OBS CARE(HIGH) FRANCA ENCINAS MD May 02, 2024 10:07
--- NOTE | 2024-05-02 11:09 | DVHPN2 ---
Progress Note - Dictate Date Seen: May 02, 2024 Medical Necessity Reason Pt with a Central, PICC or Fol: No Subjective Patient still complains of continued knee pain and bilateral shoulder pain that has been occurring for several weeks. His left shoulder is hurting worse than his right. Patient reports feeling somewhat better with pain medication. s/p b/l shoulder I and D, clavicular joint i and d, 04/29/2024 : extremity venous studies came back normal NO DVT vital signs Vital Sign Date Time Temp Pulse Resp B/P (MAP) Pulse Ox O2 Delivery O2 Flow Rate FiO2 05/02/24 06:37 99.9 05/02/24 05:58 82 18 110/57 05/02/24 05:00 90 05/01/24 20:00 Room Air* 0 21 Total Intake and Output 05/01/24 05/01/24 05/02/24 15:00 23:00 07:00 Intake Total 455 ml 50 ml Balance 455 ml 50 ml medications Current Medications Medications Dose Ordered Sig/Sunny Route Start Time Stop Time Status Last Admin Dose Admin Tamsulosin HCl 0.4 mg DAILY PO 04/25/24 10:00 05/02/24 10:03 0.4 MG Lorazepam 0.5 mg Q6HP PRN PO 04/24/24 22:15 Al Hydrox/Mg Hydrox/Simethicone 30 ml Q6HP PRN PO 04/24/24 22:15 Docusate Sodium 100 mg BIDPRN PRN PO 04/24/24 22:15 Acetaminophen 650 mg Q6HP PRN PO 04/24/24 22:15 05/02/24 05:26 650 MG Ondansetron HCl 4 mg Q4HP PRN IV 04/24/24 22:15 Enoxaparin Sodium 30 mg DAILY SC 04/25/24 10:00 UNV Diagnostic Test (Pha) 1 strip IQ4HR 04/25/24 00:00 05/02/24 07:50 1 STRIP Insulin Human Regular IQ4HR SC 04/25/24 00:00 05/01/24 23:30 8 UNITS Dextrose 50 ml UD PRN IV 04/24/24 22:15 Enoxaparin Sodium 40 mg DAILY SC 04/25/24 10:00 05/02/24 10:02 40 MG Oxycodone/ Acetaminophen 2 tab Q6HP PRN PO 04/25/24 12:00 05/02/24 06:42 2 TAB Hydromorphone HCl 0.5 mg Q4HPRN PRN IV 04/26/24 13:15 05/02/24 05:28 0.5 MG Insulin Glargine 15 units HS SC 04/27/24 22:00 05/01/24 21:27 15 UNITS Cefazolin Sodium/ Dextrose 50 ml @ 50 mls/hr Q8H IV 04/29/24 00:00 05/02/24 07:48 50 MLS/HR objective General alert and oriented HEENT: Atraumatic Neck: No swelling Lungs: Equal air entry and clear to auscultation Cardiovascular: S2 heard no murmur Abdomen: Soft nontender, no organomegaly, nondistended ext: bilateral shoulder effusion decreased ROM of upper ext b/l transmetatarsal amputation left knee brace + Neuro: Alert and oriented, no focal deficit Psych: Normal mood and affect laboratory and microbiology Laboratory Tests 05/02/24 06:52 Test 05/02/24 06:52 Range/Units Serum Glucose 80 74-106 mg/dL Assessment/Plan Patient is a 63year-old Male with MSSA bacteremia Sepsis septic arthritis of left knee 2/2 MSSA septic clavicular joint s/p i and D NECK PAIN upper back pain shoulder pain : both h/o meth abuse h/o alcohol abuse former smoker CHF s/p b/l feet transmetatarsal amputation PAD Recommendations Dr Adams did wash out shoulders/ again left knee ( he reported it was infected). b/l shoulder joint fluid cultures prelim no growth s/p knee arthroscopy and wash out by ortho ( Dr Simpson) repeat two sets of blood cultures, last 04/23 which is + cont IV cefazolin 2g q 8 hours , will add IV Ertapenen 1g daily for dual coverage after blood cx is negative for 48 hours, recommend PIcc line and placement for IV antibiotics NEed RYAN prognosis gaurded condition is critical crit time 35 min spent. Dietary Evaluation Review Comments: 1) Refer pt to a RD/CDE upon DC 2) Continue current plan of care Expected Outcomes/Goals: 1) Pt to see a RD/CDE after DC 2) Pt labs to improve 3) F/U in 3-5 days Plan discussed with: HAIDER Zapata MD May 02, 2024 11:09
--- NOTE | 2024-05-02 15:35 | DVHPN2 ---
Progress Note - Dictate Date Seen: May 02, 2024 Medical Necessity Reason Pt with a Central, PICC or Fol: No Subjective Patient was lying comfortably in bed during my evaluation and reports continued knee pain, as well as bilateral shoulder pain and left sided chest pain along the incision that is only improved somewhat with the help of pain medication. Patient denied any overnight events and has remained in bed. He denied any other complaints or concerns during my evaluation. vital signs Vital Sign Date Time Temp Pulse Resp B/P (MAP) Pulse Ox O2 Delivery O2 Flow Rate FiO2 05/02/24 13:00 97.3 75 19 117/74 (88) 100 97.3 05/02/24 07:30 Room Air* 0 N/A Nasal Cannula* Total Intake and Output 05/01/24 05/01/24 05/02/24 15:00 23:00 07:00 Intake Total 455 ml 50 ml Balance 455 ml 50 ml medications Current Medications Medications Dose Ordered Sig/Sunny Route Start Time Stop Time Status Last Admin Dose Admin Tamsulosin HCl 0.4 mg DAILY PO 04/25/24 10:00 05/02/24 10:03 0.4 MG Lorazepam 0.5 mg Q6HP PRN PO 04/24/24 22:15 Al Hydrox/Mg Hydrox/Simethicone 30 ml Q6HP PRN PO 04/24/24 22:15 Docusate Sodium 100 mg BIDPRN PRN PO 04/24/24 22:15 Acetaminophen 650 mg Q6HP PRN PO 04/24/24 22:15 05/02/24 05:26 650 MG Ondansetron HCl 4 mg Q4HP PRN IV 04/24/24 22:15 Enoxaparin Sodium 30 mg DAILY SC 04/25/24 10:00 UNV Diagnostic Test (Pha) 1 strip IQ4HR 04/25/24 00:00 05/02/24 07:50 1 STRIP Insulin Human Regular IQ4HR SC 04/25/24 00:00 05/01/24 23:30 8 UNITS Dextrose 50 ml UD PRN IV 04/24/24 22:15 Enoxaparin Sodium 40 mg DAILY SC 04/25/24 10:00 05/02/24 10:02 40 MG Oxycodone/ Acetaminophen 2 tab Q6HP PRN PO 04/25/24 12:00 05/02/24 06:42 2 TAB Hydromorphone HCl 0.5 mg Q4HPRN PRN IV 04/26/24 13:15 05/02/24 12:05 0.5 MG Insulin Glargine 15 units HS SC 04/27/24 22:00 05/01/24 21:27 15 UNITS Cefazolin Sodium/ Dextrose 50 ml @ 50 mls/hr Q8H IV 04/29/24 00:00 05/02/24 15:29 50 MLS/HR Ertapenem 1 gm DAILY IM 05/03/24 10:00 objective A&O x4 in no acute distress Knee range of motion grossly limited with pain on movement Bilateral shoulder range of motion grossly limited with pain on movement Dressings to left knee, bilateral shoulder, and left chest clean, dry, and intact No distal edema but left calf tender to palpation Neurovascularly intact with cap refill less than 2 seconds laboratory and microbiology Laboratory Tests 05/02/24 06:52 Test 05/02/24 06:52 Range/Units Serum Glucose 80 74-106 mg/dL Assessment/Plan Left knee tibial plateau fracture Continue current management as well as pain control. Advised patient to remain in his knee immobilizer and to remain nonweightbearing on his left leg I advised the patient to take it easy in regards to his bilateral shoulders and to avoid any lifting heavier than 5 lb for the next two weeks. Pending recommendations by Infectious Disease once culture results have returned for left knee, bilateral shoulders, and left SC joint. Dietary Evaluation Review Comments: 1) Refer pt to a RD/CDE upon DC 2) Continue current plan of care Expected Outcomes/Goals: 1) Pt to see a RD/CDE after DC 2) Pt labs to improve 3) F/U in 3-5 days Plan discussed with: Patient SAUCEDO,JENREAL RIDDLE May 02, 2024 15:35
[2024-05-03] VITALS (8 sets, daily range): BP systolic 116–140; BP diastolic 44–67; PULSE 62–79; RESP 16–19; TEMP 97.6–98.6; O2SAT 92–98
--- NOTE | 2024-05-03 09:26 | DVHPN2 ---
Progress Note - Dictate Date Seen: May 03, 2024 Medical Necessity Reason Pt with a Central, PICC or Fol: No Subjective Patient still complains of continued knee pain, bilateral shoulder pain and left sided chest pain along the incision that is only improved somewhat with the help of pain medication.. His left shoulder is hurting worse than his right. He denies any other complaints or concerns. s/p b/l shoulder I and D, clavicular joint i and d, 04/29/2024 : extremity venous studies came back normal NO DVT vital signs Vital Sign Date Time Temp Pulse Resp B/P (MAP) Pulse Ox O2 Delivery O2 Flow Rate FiO2 05/03/24 08:58 98.6 68 17 119/49 (72) 97 98.6 05/02/24 19:30 Room Air* 0 21 Total Intake and Output 05/02/24 05/02/24 05/03/24 15:00 23:00 07:00 Intake Total 50 ml 586 ml 440 ml Output Total 250 ml Balance 50 ml 336 ml 440 ml medications Current Medications Medications Dose Ordered Sig/Sunny Route Start Time Stop Time Status Last Admin Dose Admin Tamsulosin HCl 0.4 mg DAILY PO 04/25/24 10:00 05/02/24 10:03 0.4 MG Lorazepam 0.5 mg Q6HP PRN PO 04/24/24 22:15 Al Hydrox/Mg Hydrox/Simethicone 30 ml Q6HP PRN PO 04/24/24 22:15 Docusate Sodium 100 mg BIDPRN PRN PO 04/24/24 22:15 Acetaminophen 650 mg Q6HP PRN PO 04/24/24 22:15 05/02/24 05:26 650 MG Ondansetron HCl 4 mg Q4HP PRN IV 04/24/24 22:15 Enoxaparin Sodium 30 mg DAILY SC 04/25/24 10:00 UNV Diagnostic Test (Pha) 1 strip IQ4HR 04/25/24 00:00 05/03/24 08:05 1 STRIP Insulin Human Regular IQ4HR SC 04/25/24 00:00 05/03/24 00:36 4 UNITS Dextrose 50 ml UD PRN IV 04/24/24 22:15 Oxycodone/ Acetaminophen 2 tab Q6HP PRN PO 04/25/24 12:00 05/03/24 05:51 2 TAB Hydromorphone HCl 0.5 mg Q4HPRN PRN IV 04/26/24 13:15 05/03/24 02:20 0.5 MG Insulin Glargine 15 units HS SC 04/27/24 22:00 05/02/24 22:09 15 UNITS Cefazolin Sodium/ Dextrose 50 ml @ 50 mls/hr Q8H IV 04/29/24 00:00 05/03/24 00:23 50 MLS/HR Enoxaparin Sodium 40 mg DAILY SC 05/03/24 10:00 Ertapenem 1 gm/ Sodium Chloride 50 ml @ 100 mls/hr DAILY IV 05/03/24 10:00 objective General alert and oriented HEENT: Atraumatic Neck: No swelling Lungs: Equal air entry and clear to auscultation Cardiovascular: S2 heard no murmur Abdomen: Soft nontender, no organomegaly, nondistended ext: bilateral shoulder effusion decreased ROM of upper ext b/l transmetatarsal amputation left knee brace + Neuro: Alert and oriented, no focal deficit Psych: Normal mood and affect laboratory and microbiology Laboratory Tests 05/02/24 06:52 Test 05/02/24 06:52 Range/Units Serum Glucose 80 74-106 mg/dL Assessment/Plan Patient is a 63year-old Male with MSSA bacteremia Sepsis septic arthritis of left knee 2/2 MSSA septic clavicular joint s/p i and D NECK PAIN upper back pain shoulder pain : both h/o meth abuse h/o alcohol abuse former smoker CHF s/p b/l feet transmetatarsal amputation PAD Recommendations Dr Adams did wash out shoulders/ again left knee ( he reported it was infected). b/l shoulder joint fluid cultures prelim no growth s/p knee arthroscopy and wash out by ortho ( Dr Simpson) --Repeat two sets of blood cultures, last 04/23 which is positive and on 04/30 which is negative. after blood cx is negative for 48 hours, recommend PICC line and placement for IV antibiotics NEed RYAN ; discussed with ALCOHOL LAW ENFORCEMENT AGENT. he will consult other cardiology --Continue dual therapy IV Cefazolin 2g q 8 hours and IV Ertapenem 1g daily for dual coverage. Aerobic culture joint fluid, clavicular jt: 05/01, Staphylococcus aureus. both shoulder joint cultures are no growth blood cx from 05/01 shows no growth for 24 hours prognosis gaurded condition is critical crit time 35 min spent. thank you for opportunity for caring this patient. Discussed with provider. Dietary Evaluation Review Comments: 1) Refer pt to a RD/CDE upon DC 2) Continue current plan of care Expected Outcomes/Goals: 1) Pt to see a RD/CDE after DC 2) Pt labs to improve 3) F/U in 3-5 days Plan discussed with: Patient, Other HAIDER VAUGHN MD May 03, 2024 09:26
[2024-05-03] MEDS: ENOXAPARIN SOD 40 MG/0.4 ML SYRINGE SC SCH (09:36)
[2024-05-03] MEDS ORDERED: ERTAPENEM SOD 1 GM INJ VIAL IV SCH (10:00)
[2024-05-03] MEDS: ERTAPENEM SOD INJ 1 GM in SODIUM CHL 0.9% 50 ML IV SCH (10:00)
[2024-05-03] MEDS ORDERED: PROPOFOL 10 MG/ML 20 ML IV ONE (10:26)
[2024-05-03 11:12] LABS: Basophils # (auto) 0 10 ^3/uL (0-0.2); Basophils % (auto) 0.3 % (0.0-2.0); Eosinophils # (auto) 0.2 10 ^3/uL (0-0.8); Eosinophils % (auto) 1.7 % (0.0-7.0); Hematocrit 24.2 % (41.0-53.0); Hemoglobin 7.3 g/dL (13.5-17.5); Lymphocytes # (auto) 0.6 10 ^3/uL (0.4-5.4); Lymphocytes % (auto) 6.2 % (10.0-50.0); Mean Corpuscular Hemoglobin 24.4 pg (28.0-32.0); Mean Corpuscular Hgb Conc. 30.3 g/dL (32.0-36.0); Mean Corpuscular Volume 80.7 fL (80.0-100.0); Monocytes # (auto) 0.3 10 ^3/uL (0-1.3); Monocytes % (auto) 3.7 % (0.0-12.0); Neutrophils # (auto) 8.3 10 ^3/uL (1.6-8.6); Neutrophils % (auto) 88.1 % (37.0-80.0); Platelet Count (auto) 195 10^3/uL (140-450); Red Cell Distribution Width 20.1 % (11.8-14.3); White Blood Cell 9.4 10^3/uL (4.4-10.8)
[2024-05-03 11:21] LABS: Anion Gap 8 (5-15); Carbon Dioxide 23 mmol/L (20-31); Chloride 105 mmol/L (98-107); Sodium 136 mmol/L (136-145)
[2024-05-03 11:27] LABS: BUN/Creatinine Ratio 14.6 (10.0-20.0); Blood Urea Nitrogen 12 mg/dL (9-23)
[2024-05-03 11:34] LABS: Glucose 225 mg/dL (74-106)
--- NOTE | 2024-05-03 12:34 | DVHPN2 ---
Progress Note - Dictate Date Seen: May 03, 2024 Medical Necessity Reason Pt with a Central, PICC or Fol: No Subjective Patient was lying comfortably in bed during my evaluation and denied any changes with continued knee pain, as well as bilateral shoulder pain and left sided chest pain along the incision that is only improved somewhat with the help of pain medication. Patient denied any overnight events and has remained in bed. He denied any other complaints or concerns during my evaluation. vital signs Vital Sign Date Time Temp Pulse Resp B/P (MAP) Pulse Ox O2 Delivery O2 Flow Rate FiO2 05/03/24 09:49 67 18 125/56 05/03/24 08:58 98.6 97 98.6 05/02/24 19:30 Room Air* 0 21 Total Intake and Output 05/02/24 05/02/24 05/03/24 15:00 23:00 07:00 Intake Total 50 ml 586 ml 440 ml Output Total 250 ml Balance 50 ml 336 ml 440 ml medications Current Medications Medications Dose Ordered Sig/Sunny Route Start Time Stop Time Status Last Admin Dose Admin Tamsulosin HCl 0.4 mg DAILY PO 04/25/24 10:00 05/03/24 09:36 0.4 MG Lorazepam 0.5 mg Q6HP PRN PO 04/24/24 22:15 Al Hydrox/Mg Hydrox/Simethicone 30 ml Q6HP PRN PO 04/24/24 22:15 Docusate Sodium 100 mg BIDPRN PRN PO 04/24/24 22:15 Acetaminophen 650 mg Q6HP PRN PO 04/24/24 22:15 05/02/24 05:26 650 MG Ondansetron HCl 4 mg Q4HP PRN IV 04/24/24 22:15 Enoxaparin Sodium 30 mg DAILY SC 04/25/24 10:00 UNV Diagnostic Test (Pha) 1 strip IQ4HR 04/25/24 00:00 05/03/24 08:05 1 STRIP Insulin Human Regular IQ4HR SC 04/25/24 00:00 05/03/24 00:36 4 UNITS Dextrose 50 ml UD PRN IV 04/24/24 22:15 Oxycodone/ Acetaminophen 2 tab Q6HP PRN PO 04/25/24 12:00 05/03/24 05:51 2 TAB Hydromorphone HCl 0.5 mg Q4HPRN PRN IV 04/26/24 13:15 05/03/24 09:49 0.5 MG Insulin Glargine 15 units HS SC 04/27/24 22:00 05/02/24 22:09 15 UNITS Cefazolin Sodium/ Dextrose 50 ml @ 50 mls/hr Q8H IV 04/29/24 00:00 05/03/24 09:36 50 MLS/HR Enoxaparin Sodium 40 mg DAILY SC 05/03/24 10:00 05/03/24 09:36 40 MG Ertapenem 1 gm/ Sodium Chloride 50 ml @ 100 mls/hr DAILY IV 05/03/24 10:00 05/03/24 10:00 100 MLS/HR objective A&O x4 in no acute distress Knee range of motion grossly limited with pain on movement Bilateral shoulder range of motion grossly limited with pain on movement Dressings to left knee, bilateral shoulder, and left chest clean, dry, and intact No distal edema but left calf tender to palpation Neurovascularly intact with cap refill less than 2 seconds laboratory and microbiology Laboratory Tests 05/03/24 10:44 Test 05/03/24 10:44 Range/Units Serum Glucose 225 #H 74-106 mg/dL Assessment/Plan Left knee tibial plateau fracture Continue current management as well as pain control. Advised patient to remain in his knee immobilizer and to remain nonweightbearing on his left leg I advised the patient to take it easy in regards to his bilateral shoulders and to avoid any lifting heavier than 5 lb for the next two weeks. Pending recommendations by Infectious Disease once culture results have returned for left knee, bilateral shoulders, and left SC joint. Dietary Evaluation Review Comments: 1) Refer pt to a RD/CDE upon DC 2) Continue current plan of care Expected Outcomes/Goals: 1) Pt to see a RD/CDE after DC 2) Pt labs to improve 3) F/U in 3-5 days Plan discussed with: Patient SAUCEDO,OLI RIDDLE May 03, 2024 12:34
--- NOTE | 2024-05-03 13:01 | DVHPN2 ---
Subjective Patient reporting generalized weakness and severe pain to left knee Reviewed: Care Plan, H&P, Labs, Medications, Previous Orders Changes from previous H/P or p: No Changes General: Per HPI Eyes: No Pain, No Vision change, No Conjunctivae inflammation, No Eyelid inflammation, No Other, No Redness ENT: No Ear pain, No Ear discharge, No Nose pain, No Nose discharge, No Nose congestion, No Mouth pain, No Mouth swelling, No Throat pain, No Throat swelling, No Other Cardiovascular: No Chest Pain, No Palpitations, No Orthopnea, No Paroxysmal Noc. Dyspnea, No Edema, No Lt Headedness, No Other Respiratory: No Cough, No Dry, No Shortness of breath, No SOB with excertion, No Wheezing, No Hemoptysis, No Pleuritic Pain, No Sputum, No Other Gastrointestinal: No Nausea, No Vomiting, No Abdominal Pain, No Diarrhea, No Constipation, No Melena, No Hematochezia, No Other Genitourinary: No Dysuria, No Frequency, No Incontinence, No Hematuria, No Retention, No Other Musculoskeletal: No other, No neck pain, No shoulder pain, No arm pain, No back pain, No hand pain, No leg pain, No foot pain Skin: No Rash, No Lesions, No Jaundice, No Bruising, No Other Objective Vitals Vital Signs Date Time Temp Pulse Resp B/P (MAP) Pulse Ox O2 Delivery O2 Flow Rate FiO2 05/03/24 09:49 67 18 125/56 05/03/24 08:58 98.6 97 98.6 05/02/24 19:30 Room Air* 0 21 Intake/Output Intake and Output 05/03/24 07:00 Intake Total 1076 ml Output Total 250 ml Balance 826 ml Intake Oral 976 ml IV Total 100 ml Output Urine Total 250 ml # Voids 5 # Bowel Movements 1 General Appearance: Alert, Oriented X3, Cooperative HEENT: Atraumatic, PERRLA Lungs: Clear to auscultation, Normal air movement Cardiovascular: Normal S1, Normal S2 Extremities: Other (Dressing to left lower extremity dry and intact.) Neuro: Sensation intact Skin: Dry, Intact Psych/Mental Status: Mental status NL, Mood NL Medications Current Medications Medications Dose Ordered Sig/Sunny Route Start Time Stop Time Status Last Admin Dose Admin Tamsulosin HCl 0.4 mg DAILY PO 04/25/24 10:00 05/03/24 09:36 0.4 MG Lorazepam 0.5 mg Q6HP PRN PO 04/24/24 22:15 Al Hydrox/Mg Hydrox/Simethicone 30 ml Q6HP PRN PO 04/24/24 22:15 Docusate Sodium 100 mg BIDPRN PRN PO 04/24/24 22:15 Acetaminophen 650 mg Q6HP PRN PO 04/24/24 22:15 05/02/24 05:26 650 MG Ondansetron HCl 4 mg Q4HP PRN IV 04/24/24 22:15 Enoxaparin Sodium 30 mg DAILY SC 04/25/24 10:00 UNV Diagnostic Test (Pha) 1 strip IQ4HR 04/25/24 00:00 05/03/24 08:05 1 STRIP Insulin Human Regular IQ4HR SC 04/25/24 00:00 05/03/24 00:36 4 UNITS Dextrose 50 ml UD PRN IV 04/24/24 22:15 Oxycodone/ Acetaminophen 2 tab Q6HP PRN PO 04/25/24 12:00 05/03/24 05:51 2 TAB Hydromorphone HCl 0.5 mg Q4HPRN PRN IV 04/26/24 13:15 05/03/24 09:49 0.5 MG Insulin Glargine 15 units HS SC 04/27/24 22:00 05/02/24 22:09 15 UNITS Cefazolin Sodium/ Dextrose 50 ml @ 50 mls/hr Q8H IV 04/29/24 00:00 05/03/24 09:36 50 MLS/HR Enoxaparin Sodium 40 mg DAILY SC 05/03/24 10:00 05/03/24 09:36 40 MG Ertapenem 1 gm/ Sodium Chloride 50 ml @ 100 mls/hr DAILY IV 05/03/24 10:00 05/03/24 10:00 100 MLS/HR Laboratory Results Laboratory Tests 05/03/24 10:44 Chemistry Test 05/03/24 10:44 Calcium Level 8.0 mg/dL (8.7-10.4) L Urinalysis Test 04/24/24 17:25 Urine Color Light-yellow (Yellow) Urine Clarity Clear (Clear) Urine pH 5.5 (5.0-9.0) Urine Specific [place] 1.031 (1.001-1.035) Urine Protein 1+ (Negative) H Urine Ketones 1+ (Negative) H Urine Blood 1+ /uL (Negative) H Urine Nitrite Negative (Negative) Urine Bilirubin Negative (Negative) Urine Urobilinogen Normal mg/dL (Negative) Urine Leukocyte Esterase Trace /uL (Negative) Urine RBC 5 /hpf (0 - 3) Urine WBC 19 /hpf (0 - 3) Urine Squamous Epithelial Cells Few /hpf (<5) Urine Bacteria None seen /hpf (None Seen) Urine Glucose 4+ mg/dL (Normal) H Microbiology Microbiology Date/Time Source Procedure Growth Status 05/01/24 10:10 Other Gram Stain - Final Resulted 05/01/24 10:10 Other Anaerobic Culture - Preliminary Resulted 05/01/24 10:10 Aerobic Culture - Preliminary Staphylococcus aureus Resulted 04/30/24 17:53 Blood Blood Culture - Preliminary NO GROWTH AFTER 48 HOURS OF INCUBATION. 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 Patient also had repeat left knee arthroscopy light touch continue to have signs of infection. CT scan of the chest, abdomen, pelvis was performed. Noted questionable abscess to junction of right 1st rib with the manubrium. CT surgery consultation placed. Patient will also require RYAN to rule out endocarditis. -ID consultation: Recommendations reviewed -cardiology consultation : Assess for need for RYAN -orthopedic surgery consultation -antibiotic therapy: Deescalated to Ancef -PUD, DVT prophylaxis -blood cultures: Staph aureus. Staph aureus in knee aspirin -continue regular insulin sliding scale, aggressive scale -repeat labs in a.m. Total time spent with patient discussing and formulating plan of care: 35 minutes. This medical document was created using an electronic medical record system with [employer] dictation system. Although this document has been carefully reviewed, there may still be some phonetic and typographical errors. These areas are purely typographical due to imperfections of the software programs, and do not reflect any compromise in the patient's medical care. Plan discussed with: Patient, Other (RN) My Orders Orders - XOCHITL GRAY NP Procedure Category Date Status Time * Surgical Consult CONS 05/03/24 Transmitted * Cardiology Consult CONS 05/03/24 Verified 12:56 Iron Ivpb PHA 05/04/24 Verified 12:00 Date of Service: May 03, 2024 Billing Provider: XOCHITL GRAY NP Common Visit Codes: [id number] INP/OBS CARE(HIGH) XOCHITL GRAY NP May 03, 2024 13:01
[2024-05-04] VITALS (16 sets, daily range): BP systolic 102–141; BP diastolic 50–62; PULSE 62–74; RESP 12–20; TEMP 97.7–100.1; O2SAT 90–96
[2024-05-04] MEDS: MIDAZOLAM HCL 2MG/2ML 2ml VIAL (1mg/ml) IV ONE (09:15)
[2024-05-04] MEDS: fentaNYL CITRATE 100 MCG/2 ML VL IV ONE (09:15)
--- NOTE | 2024-05-04 09:25 | DVHPN2 ---
Progress Note - Dictate Date Seen: May 04, 2024 Medical Necessity Reason Pt with a Central, PICC or Fol: No Subjective Patient still complains of continued knee pain, bilateral shoulder pain and left sided chest pain along the incision that is only improved somewhat with the help of pain medication. He denies any other complaints or concerns. s/p b/l shoulder I and D, clavicular joint i and d, 04/29/2024 : extremity venous studies came back normal NO DVT vital signs Vital Sign Date Time Temp Pulse Resp B/P (MAP) Pulse Ox O2 Delivery O2 Flow Rate FiO2 05/04/24 05:27 77 16 124/64 05/04/24 05:00 100.1 94 100.1 05/03/24 20:00 Nasal Cannula* 2 28 Total Intake and Output 05/03/24 05/03/24 05/04/24 15:00 23:00 07:00 Intake Total 100 ml 1110 ml 0 ml Output Total 300 ml Balance 100 ml 1110 ml -300 ml medications Current Medications Medications Dose Ordered Sig/Sunny Route Start Time Stop Time Status Last Admin Dose Admin Tamsulosin HCl 0.4 mg DAILY PO 04/25/24 10:00 05/03/24 09:36 0.4 MG Lorazepam 0.5 mg Q6HP PRN PO 04/24/24 22:15 Al Hydrox/Mg Hydrox/Simethicone 30 ml Q6HP PRN PO 04/24/24 22:15 Docusate Sodium 100 mg BIDPRN PRN PO 04/24/24 22:15 Acetaminophen 650 mg Q6HP PRN PO 04/24/24 22:15 05/02/24 05:26 650 MG Ondansetron HCl 4 mg Q4HP PRN IV 04/24/24 22:15 Enoxaparin Sodium 30 mg DAILY SC 04/25/24 10:00 UNV Diagnostic Test (Pha) 1 strip IQ4HR 04/25/24 00:00 05/04/24 08:49 1 STRIP Insulin Human Regular IQ4HR SC 04/25/24 00:00 05/03/24 21:11 8 UNITS Dextrose 50 ml UD PRN IV 04/24/24 22:15 Oxycodone/ Acetaminophen 2 tab Q6HP PRN PO 04/25/24 12:00 05/04/24 06:59 2 TAB Hydromorphone HCl 0.5 mg Q4HPRN PRN IV 04/26/24 13:15 05/04/24 04:57 0.5 MG Insulin Glargine 15 units HS SC 04/27/24 22:00 05/03/24 23:10 15 UNITS Cefazolin Sodium/ Dextrose 50 ml @ 50 mls/hr Q8H IV 04/29/24 00:00 05/04/24 00:28 50 MLS/HR Enoxaparin Sodium 40 mg DAILY SC 05/03/24 10:00 05/03/24 09:36 40 MG Ertapenem 1 gm/ Sodium Chloride 50 ml @ 100 mls/hr DAILY IV 05/03/24 10:00 05/03/24 10:00 100 MLS/HR Iron Sucrose 110 ml @ 110 mls/hr DAILY@1200 IV 05/04/24 12:00 05/08/24 12:59 Lidocaine HCl 15 ml ONCE PRN MT 05/04/24 08:15 objective General alert and oriented HEENT: Atraumatic Neck: No swelling Lungs: Equal air entry and clear to auscultation Cardiovascular: S2 heard no murmur Abdomen: Soft nontender, no organomegaly, nondistended ext: bilateral shoulder effusion decreased ROM of upper ext b/l transmetatarsal amputation left knee brace + Neuro: Alert and oriented, no focal deficit Psych: Normal mood and affect laboratory and microbiology Laboratory Tests 05/03/24 10:44 Test 05/03/24 10:44 Range/Units Serum Glucose 225 #H 74-106 mg/dL Assessment/Plan Patient is a 63year-old Male with MSSA bacteremia Sepsis septic arthritis of left knee 2/2 MSSA septic clavicular joint s/p i and D NECK PAIN upper back pain shoulder pain : both h/o meth abuse h/o alcohol abuse former smoker CHF s/p b/l feet transmetatarsal amputation PAD Recommendations recommend CT surgery consult to evaluate a small joint infection on chest wall. recommend RYAN Dr Adams did wash out shoulders/ again left knee ( he reported it was infected). b/l shoulder joint fluid cultures prelim no growth s/p knee arthroscopy and wash out by ortho ( Dr Simpson) --Repeat two sets of blood cultures, last 04/23 which is positive and on 04/30 which is negative. after blood cx is negative for 48 hours, recommend PICC line and placement for IV antibiotics NEed RYAN ; discussed with [employer] FINISHER. he will consult other cardiology --Continue dual therapy IV Cefazolin 2g q 8 hours and IV Ertapenem 1g daily for dual coverage. Aerobic culture joint fluid, clavicular jt: 05/01, Staphylococcus aureus. both shoulder joint cultures are no growth blood cx from 05/02 shows no growth for 24 hours prognosis guarded condition is critical crit time 35 min spent. thank you for opportunity for caring this patient. Discussed with provider. Dietary Evaluation Review Comments: 1) Refer pt to a RD/CDE upon DC 2) Continue current plan of care Expected Outcomes/Goals: 1) Pt to see a RD/CDE after DC 2) Pt labs to improve 3) F/U in 3-5 days Plan discussed with: HAIDER Zapata MD May 04, 2024 09:25
--- NOTE | 2024-05-04 09:41 | DVHOP2 ---
Operative Report -Cardiology Report Details Date: 05/04/24 Preop Diagnosis: Staphylococcus bacteremia. Postop Diagnosis: Staphylococcus aureus bacteremia with a Bilateral shoulder effusion, left sternoclavicular joint effusion, left knee effusion, questionable endocarditis, naz was requested to rule out infective endocarditis. Surgeon: Elsy Guillory MD Anesthesiologist: Conscious sedation using 50 mcg of fentanyl as well as a mg of midazolam, it was noted direct supervision of the primary customer contact specialist breast attending nurses. The patient was monitored for total of35 minutes without obvious complication. Anesthesia: Local, Regional Consent: The patient was informed of the risks and benefits of the procedure. These include but are not limited to complications of anesthesia, postoperative infection, incomplete relief of symptoms, recurrence of symptoms, damage to blood vessels, nerves and tendons, deep venous thrombosis, pulmonary embolism and possible need for repeat surgery in the future. Indications for Surgery: This is a 63-year-old gentleman who presented to the hospital with a fall on his knee. Patient developed biatrial shoulder injury as well as normal knee effusion. Patient also was found to be febrile and septic blood culture were positive for staph coccus aureus mid multiple sets, for which patient is booked for NAZ to rule out endocarditis. He has also poorly controlled diabetes mellitus type 2. Name of Procedure Performed 1. Transesophageal echocardiography. 2. Bubble study. 3. Conscious sedation using25 mcg of fentanyl as well as a mg of midazolam Procedure Details Procedure Details: After informed consent was obtained, risks, benefits, complications, alternatives were discussed in details with the patient who agrees with the procedure done. The beginning of the procedure the nasopharynx was anesthetized using, motion solution of 2% of 20 cc xylocaine. Patient was gargling get and then he swallow it. Then a mouth guard was placed conscious sedation obtained using25 mcg of fentanyl as well as a mg midazolam. Standard NAZ probe was advanced to the mid esophageal area and standard pictures including four-chamber view, three chamber view two chamber views and anteflexed and retroflexed fashion were obtained findings were as follows: 1. [id number] reduced left ventricular systolic function estimated ejection fraction of 45% there is anteroseptal and septal wall hypokinesia. 2. Normal right ventricular size and dimension. Normal left ventricular systolic function. 3. Normal biatrial size and dimension. 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 4. The aortic valve is mildly thickened no evidence of vegetation or thrombus. 5. The mitral valve is mildly thickened there is mild mitral valve regurgitation. No evidence of vegetation or masses was detected with the mitral valve leaflets. 6. Tricuspid valve has moderate tricuspid valve regurgitation. There is an ICD lead seen in the right ventricular cavity traversing the right atrium and the tricuspid valve. 7. The pulmonary valve is grossly normal. 8. No pericardial effusion. 9. Normal left atrial appendage structure and function. 10. Bubble study was negative for intra-atrial shunting. 11. Normal pulmonary vein connections and numbers. 12. The visualized part of the aorta shows no evidence of dissection or aortic root dilatation. Impression and plan: 1. Mildly reduced left ventricular systolic function estimated ejection fraction 45% with the anterior anteroseptal wall hypokinesia. 2. 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 3. No evidence of vegetation or masses detected on any of the valve. Condition Good Disposition Still a Patient ELSY GUILLORY MD May 04, 2024 09:41
[2024-05-04] MEDS: LIDOCAINE VISCOUS 2% 15ML UD MT PRN (09:51)
--- NOTE | 2024-05-04 10:15 | DVHPN2 ---
Subjective Patient reporting generalized weakness and severe pain to left knee Reviewed: Care Plan, H&P, Labs, Medications, Previous Orders Changes from previous H/P or p: No Changes General: Per HPI Eyes: No Pain, No Vision change, No Conjunctivae inflammation, No Eyelid inflammation, No Other, No Redness ENT: No Ear pain, No Ear discharge, No Nose pain, No Nose discharge, No Nose congestion, No Mouth pain, No Mouth swelling, No Throat pain, No Throat swelling, No Other Cardiovascular: No Chest Pain, No Palpitations, No Orthopnea, No Paroxysmal Noc. Dyspnea, No Edema, No Lt Headedness, No Other Respiratory: No Cough, No Dry, No Shortness of breath, No SOB with excertion, No Wheezing, No Hemoptysis, No Pleuritic Pain, No Sputum, No Other Gastrointestinal: No Nausea, No Vomiting, No Abdominal Pain, No Diarrhea, No Constipation, No Melena, No Hematochezia, No Other Genitourinary: No Dysuria, No Frequency, No Incontinence, No Hematuria, No Retention, No Other Musculoskeletal: No other, No neck pain, No shoulder pain, No arm pain, No back pain, No hand pain, No leg pain, No foot pain Skin: No Rash, No Lesions, No Jaundice, No Bruising, No Other Objective Vitals Vital Signs Date Time Temp Pulse Resp B/P (MAP) Pulse Ox O2 Delivery O2 Flow Rate FiO2 05/04/24 05:27 77 16 124/64 05/04/24 05:00 100.1 94 100.1 05/03/24 20:00 Nasal Cannula* 2 28 Intake/Output Intake and Output 05/04/24 07:00 Intake Total 1210 ml Output Total 300 ml Balance 910 ml Intake Oral 1060 ml IV Total 150 ml Output Urine Total 300 ml # Voids 4 # Bowel Movements 1 General Appearance: Alert, Oriented X3, Cooperative HEENT: Atraumatic, PERRLA Lungs: Clear to auscultation, Normal air movement Cardiovascular: Normal S1, Normal S2 Extremities: Other (Dressing to left lower extremity dry and intact.) Neuro: Sensation intact Skin: Dry, Intact Psych/Mental Status: Mental status NL, Mood NL Medications Current Medications Medications Dose Ordered Sig/Sunny Route Start Time Stop Time Status Last Admin Dose Admin Tamsulosin HCl 0.4 mg DAILY PO 04/25/24 10:00 05/03/24 09:36 0.4 MG Lorazepam 0.5 mg Q6HP PRN PO 04/24/24 22:15 Al Hydrox/Mg Hydrox/Simethicone 30 ml Q6HP PRN PO 04/24/24 22:15 Docusate Sodium 100 mg BIDPRN PRN PO 04/24/24 22:15 Acetaminophen 650 mg Q6HP PRN PO 04/24/24 22:15 05/02/24 05:26 650 MG Ondansetron HCl 4 mg Q4HP PRN IV 04/24/24 22:15 Enoxaparin Sodium 30 mg DAILY SC 04/25/24 10:00 UNV Diagnostic Test (Pha) 1 strip IQ4HR 04/25/24 00:00 05/04/24 08:49 1 STRIP Insulin Human Regular IQ4HR SC 04/25/24 00:00 05/03/24 21:11 8 UNITS Dextrose 50 ml UD PRN IV 04/24/24 22:15 Oxycodone/ Acetaminophen 2 tab Q6HP PRN PO 04/25/24 12:00 05/04/24 06:59 2 TAB Hydromorphone HCl 0.5 mg Q4HPRN PRN IV 04/26/24 13:15 05/04/24 04:57 0.5 MG Insulin Glargine 15 units HS SC 04/27/24 22:00 05/03/24 23:10 15 UNITS Cefazolin Sodium/ Dextrose 50 ml @ 50 mls/hr Q8H IV 04/29/24 00:00 05/04/24 00:28 50 MLS/HR Enoxaparin Sodium 40 mg DAILY SC 05/03/24 10:00 05/03/24 09:36 40 MG Ertapenem 1 gm/ Sodium Chloride 50 ml @ 100 mls/hr DAILY IV 05/03/24 10:00 05/03/24 10:00 100 MLS/HR Iron Sucrose 110 ml @ 110 mls/hr DAILY@1200 IV 05/04/24 12:00 05/08/24 12:59 Lidocaine HCl 15 ml ONCE PRN MT 05/04/24 08:15 Laboratory Results Laboratory Tests 05/03/24 10:44 Chemistry Test 05/03/24 10:44 Calcium Level 8.0 mg/dL (8.7-10.4) L Urinalysis Test 04/24/24 17:25 Urine Color Light-yellow (Yellow) Urine Clarity Clear (Clear) Urine pH 5.5 (5.0-9.0) Urine Specific [place] 1.031 (1.001-1.035) Urine Protein 1+ (Negative) H Urine Ketones 1+ (Negative) H Urine Blood 1+ /uL (Negative) H Urine Nitrite Negative (Negative) Urine Bilirubin Negative (Negative) Urine Urobilinogen Normal mg/dL (Negative) Urine Leukocyte Esterase Trace /uL (Negative) Urine RBC 5 /hpf (0 - 3) Urine WBC 19 /hpf (0 - 3) Urine Squamous Epithelial Cells Few /hpf (<5) Urine Bacteria None seen /hpf (None Seen) Urine Glucose 4+ mg/dL (Normal) H Microbiology Microbiology Date/Time Source Procedure Growth Status 05/02/24 16:32 Blood Blood Culture - Preliminary NO GROWTH AFTER 24 HOURS OF INCUBATION. Resulted 05/01/24 10:10 Other Gram Stain - Final Resulted 05/01/24 10:10 Other Anaerobic Culture - Preliminary Resulted 05/01/24 10:10 Aerobic Culture - Preliminary Staphylococcus aureus Resulted 04/28/24 11:00 Aspirate Gram Stain - Final Complete 04/28/24 11:00 Aspirate Anaerobic Culture - Final Complete 04/28/24 11:00 Aerobic Culture - Final Staphylococcus aureus Complete Labs and/or images reviewed: Labs reviewed by me, Image(s) reviewed by me Assessment/Plan Assessment/Plan Impression: -sepsis -septic arthritis -acute on chronic decompensated systolic heart failure -syncope with collapse -history of probable coronary artery disease with CABG -diabetes mellitus, uncontrolled -acute kidney injury, vasomotor nephropathy -chronic pain syndrome with chronic opiate use -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 Awaiting for CT surgery to respond to consultation for sternal abscess. Blood cultures negative times 48 hours -ID consultation: Recommendations reviewed -cardiology consultation : Recommendations reviewed -orthopedic surgery consultation -antibiotic therapy: Per Infectious Disease -PUD, DVT prophylaxis -bowel regimenaggressiv -change to a.c./HS coverage. Continue Lantus -repeat labs in a.m. Total time spent with patient discussing and formulating plan of care: 35 minutes. This medical document was created using an electronic medical record system with [employer] computerized dictation system. Although this document has been carefully reviewed, there may still be some phonetic and typographical errors. These areas are purely typographical due to imperfections of the software programs, and do not reflect any compromise in the patient's medical care. Plan discussed with: Patient, Other (RN) My Orders Orders - XOCHITL GRAY NP Procedure Category Date Status Time * Surgical Consult CONS 05/03/24 Transmitted * Cardiology Consult CONS 05/03/24 Transmitted 12:56 Iron Sucrose Complex PHA 05/04/24 In Process (Venofer) 12:00 Date of Service: May 04, 2024 Billing Provider: XOCHITL GRAY NP Common Visit Codes: [id number] INP/OBS CARE(HIGH) XOCHITL GRAY NP May 04, 2024 10:15
[2024-05-04] MEDS: IRON SUCROSE COMPLEX 110 ML IV SCH (12:00)
[2024-05-04] MEDS: LACTULOSE 20Gm/30ML SOLN PO SCH (12:01)
--- NOTE | 2024-05-04 12:45 | DVHINCON2 ---
Date of service: May 04, 2024 Family History: Diabetes mellitus G8 MOTHER FHx: kidney disease G8 MOTHER Allergies: Coded Allergies: Hydrocodone (Verified Allergy, Severe, LEG SWELLING, 04/25/24) Codeine (Verified Allergy, Unknown, 04/24/24) Ketorolac Tromethamine (Verified Allergy, Unknown, 04/03/24) Home Meds Active Scripts Ibuprofen Micronized (Ibuprofen) 600 Mg Tab, 600 MG PO BID for 7 Days, #14 TAB Prov:TAMMY ANNE MD 04/07/24 Oxycodone HCl (Oxycodone Hydrochloride) 10 Mg Tab, 10 MG PO TIDPRN PRN for 7 Days, #21 TAB Prov:TAMMY ANNE MD 04/07/24 Oxycodone Hcl (OxyCONTIN ER Tablet) 10 Mg Tb, 1 TAB PO BID for 7 Days, #14 TAB 0 Refills Prov:TAMMY ANNE MD 04/07/24 Tamsulosin Hcl (Flomax) 0.4 Mg Cap, 0.4 MG PO QPM for 30 Days, #30 CAP 0 Refills Prov:TAMMY ANNE MD 04/07/24 Baclofen (Baclofen) 10 Mg Tab, 5 MG PO Q8HR for 30 Days, #45 TAB 0 Refills Prov:TAMMY ANNE MD 04/07/24 Reported Medications Tamsulosin HCl (Tamsulosin Hydrochloride) 0.4 Mg Cap, 0.4 MG PO, CAP 04/04/24 Current Medications Current Medications Medications (Trade) Dose Ordered Sig/Sunny Route PRN Reason Start Time Stop Time Status Last Admin Iron Sucrose 110 ml @ 110 mls/hr DAILY@1200 IV 05/04/24 12:00 05/08/24 12:59 05/04/24 12:12 Lidocaine HCl (Xylocaine 2% Viscous) 15 ml ONCE PRN MT FOR SORE THROAT 05/04/24 08:15 Lactulose 30 ml Q6HR PO 05/04/24 12:00 05/05/24 06:01 05/04/24 12:01 Docusate Sodium (Colace Capsule) 100 mg BID PO 05/04/24 22:00 Vital Signs Vital Signs Date Time Temp Pulse Resp B/P (MAP) Pulse Ox O2 Delivery O2 Flow Rate FiO2 05/04/24 10:11 66 14 113/52 05/04/24 10:05 93 05/04/24 09:09 98.2 98.2 05/04/24 08:00 Room Air* 0 N/A Nasal Cannula* Labs/Diagnostic Data Labs Test 05/04/24 08:38 05/03/24 10:44 04/28/24 15:10 04/27/24 05:28 Range/Units POC Glucose 147 H 70-106 mg/dl White Blood Count 9.4 # 4.4-10.8 10^3/uL Red Blood Count 3.00 L 4.5-5.90 10^6/uL Hemoglobin 7.3 L 13.5-17.5 g/dL Hematocrit 24.2 L 41.0-53.0 % Mean Corpuscular Volume 80.7 80.0-100.0 fL Mean Corpuscular Hemoglobin 24.4 L 28.0-32.0 pg Mean Corpuscular Hemoglobin Concent 30.3 L 32.0-36.0 g/dL Red Cell Distribution Width 20.1 H 11.8-14.3 % Platelet Count 195 140-450 10^3/uL Mean Platelet Volume 9.5 6.9-10.8 fL Neutrophils (%) (Auto) 88.1 H 37.0-80.0 % Lymphocytes (%) (Auto) 6.2 L 10.0-50.0 % Monocytes (%) (Auto) 3.7 0.0-12.0 % Eosinophils (%) (Auto) 1.7 0.0-7.0 % Basophils (%) (Auto) 0.3 0.0-2.0 % Neutrophils # (Auto) 8.3 1.6-8.6 10 ^3/uL Lymphocytes # (Auto) 0.6 0.4-5.4 10 ^3/uL Monocytes # (Auto) 0.3 0-1.3 10 ^3/uL Eosinophils # (Auto) 0.2 0-0.8 10 ^3/uL Basophils # (Auto) 0 0-0.2 10 ^3/uL Nucleated Red Blood Cells 0.0 % Sodium Level 136 # 136-145 mmol/L Potassium Level 4.0 3.5-5.1 mmol/L Chloride Level 105 98-107 mmol/L Carbon Dioxide Level 23 20-31 mmol/L Anion Gap 8 5-15 Blood Urea Nitrogen 12 9-23 mg/dL Creatinine 0.82 0.700-1.30 mg/dL Glomerular Filtration Rate Calc 99 >90 mL/min BUN/Creatinine Ratio 14.6 10.0-20.0 Serum Glucose 225 #H 74-106 mg/dL Calcium Level 8.0 L 8.7-10.4 mg/dL Differential Total Cells Counted 100.0 100 Neutrophils % (Manual) 95 H 37.0-80.0 Band Neutrophils % (Manual) 2 Lymphocytes % (Manual) 1 L 10.0-50.0 Monocytes % (Manual) 2 0-12 Eosinophils % (Manual) 0 0-7 Basophils % (Manual) 0 0.0-2.0 Metamyelocytes % (manual) 0 Myelocytes % (Manual) 0 Promyelocytes % (Manual) 0 Blast Cells % (Manual) 0 Reactive Lymphocytes 0 Platelet Estimate Adequate Large Platelets Few Hypochromasia (manual) Slight Microcytosis Slight Phosphorus Level 2.6 2.4-5.1 mg/dL Magnesium Level 2.3 1.6-2.6 mg/dL Total Bilirubin 0.7 0.2-1.0 mg/dL Aspartate Amino Transferase (AST) 55 H 13-40 U/L Alanine Aminotransferase (ALT) 23 7-40 U/L Alkaline Phosphatase 104 46-116 U/L Total Protein 6.1 5.7-8.2 g/dL Albumin 3.0 L 3.2-4.8 g/dL Test 04/26/24 00:45 04/25/24 13:00 04/25/24 12:04 04/25/24 03:18 Range/Units Prothrombin Time 11.0 9.3-11.8 sec Prothrombin Time INR 1.04 0.9-1.15 Activated Partial Thromboplast Time 33.9 24.5-34.5 SEC Lactic Acid Level 2.3 *H 0.4-2.0 mmol/L B-Type Natriuretic Peptide 119.63 0-100 pg/mL Hemoglobin A1c 8.9 H <5.7 % A1C Urine Opiates Screen Pos NEGATIVE Urine Fentanyl Screen Neg NEGATIVE Urine Barbiturates Screen Neg NEGATIVE Urine Phencyclidine Screen Neg NEGATIVE Urine Amphetamines Screen Neg NEGATIVE Urine Benzodiazepines Screen Neg NEGATIVE Urine Cocaine Screen Neg NEGATIVE Urine Cannabinoids Screen Neg NEGATIVE Erythrocyte Sedimentation Rate 92 H 0-20 mm/hr Iron Level 9 L 65-175 ug/dL Total Iron Binding Capacity 214 L 250-425 ug/dL Percent Iron Saturation 4.2 L 20-55 % Triglycerides Level 132 < 150 mg/dL Cholesterol Level 75 < 200 mg/dL LDL Cholesterol 31 < 100 mg/dL HDL Cholesterol 12 L 40-59 mg/dL Test 04/24/24 18:03 04/24/24 17:50 04/24/24 17:25 04/24/24 17:13 Range/Units Troponin I High Sensitivity 5 </=54 ng/L Blood Gas Specimen Type Arterial Blood Gas Sample Site Right radial Blood Gas Patient Temperature 37.0 Arterial Blood Date Drawn [id number] Arterial Blood pH 7.418 7.350-7.450 Arterial Blood Partial Pressure CO2 26.7 L 35.0-48.0 mmHg Arterial Blood Partial Pressure O2 57.0 L 83.0-108.0 mmHg Arterial Blood HCO3 16.9 L 21.0-28.0 mmol/L Arterial Blood Oxygen Saturation 87.1 L 94.0-98.0 % Arterial Blood Base Excess -6.4 L -2.0-3.0 mmol/L Arterial Blood Oxyhemoglobin 85.8 L 94.0-98.0 % Arterial Blood Carboxyhemoglobin 1.3 0.5-1.5 % Arterial Blood Methemoglobin 0.2 0.0-1.5 % Mario Test Yes Blood Gas Total Hemoglobin 10.60 L 13.5-17.5 g/dL Blood Gas Modality Room air FiO2 % 21.0 Urine Color Light-yellow Yellow Urine Clarity Clear Clear Urine pH 5.5 5.0-9.0 Urine Specific [place] 1.031 1.001-1.035 Urine Protein 1+ H Negative Urine Ketones 1+ H Negative Urine Blood 1+ H Negative /uL Urine Nitrite Negative Negative Urine Bilirubin Negative Negative Urine Urobilinogen Normal Negative mg/dL Urine Leukocyte Esterase Trace Negative /uL Urine RBC 5 0 - 3 /hpf Urine WBC 19 0 - 3 /hpf Urine Squamous Epithelial Cells Few <5 /hpf Urine Bacteria None seen None Seen /hpf Urine Glucose 4+ H Normal mg/dL Beta-Hydroxybutyric Acid 1.778 H < 0.4 mmol/L Microbiology Date/Time Source Procedure Growth Status 05/02/24 16:32 Blood Blood Culture - Preliminary NO GROWTH AFTER 24 HOURS OF INCUBATION. Resulted 05/01/24 10:10 Other Gram Stain - Final Resulted 05/01/24 10:10 Other Anaerobic Culture - Preliminary Resulted 05/01/24 10:10 Aerobic Culture - Final Staphylococcus aureus Resulted 04/28/24 11:00 Aspirate Gram Stain - Final Complete 04/28/24 11:00 Aspirate Anaerobic Culture - Final Complete 04/28/24 11:00 Aerobic Culture - Final Staphylococcus aureus Complete Assessment 05/04/24 REVIEW OF CHART AND IMAGING ONLY :M THE INFECTION AT THE JUNCTION OF MANUBRIUM AND FIRST RIB DOES NOT FALL WITHIN THE SCOPE OF MY PRACTICE. Plan discussed with: Other DUGLAS LIU MD May 04, 2024 12:45
--- NOTE | 2024-05-04 14:33 | CONS ---
Pharmacy Clinical Information: CQM HF Report. Patient may qualify for statin as the patient has diabetes ho wever, lipid panel should be noted when considering to add a statin as the LDL is currently 31. AMERICO HARRIS PHARMACIST May 04, 2024 14:33
[2024-05-04] MEDS: DOCUSATE SOD 100 MG CAP PO SCH (21:15)
[2024-05-05] VITALS (8 sets, daily range): BP systolic 134–147; BP diastolic 41–54; PULSE 62–89; RESP 16–20; TEMP 98–99.8; O2SAT 81–93
[2024-05-05 05:58] LABS: Anion Gap 8 (5-15); Calcium 8.1 mg/dL (8.7-10.4); Carbon Dioxide 24 mmol/L (20-31); Chloride 106 mmol/L (98-107); Potassium 3.6 mmol/L (3.5-5.1); Sodium 138 mmol/L (136-145)
[2024-05-05 06:02] LABS: Basophils # (auto) 0 10 ^3/uL (0-0.2); Eosinophils # (auto) 0.1 10 ^3/uL (0-0.8); Hematocrit 24.5 % (41.0-53.0); Hemoglobin 7.6 g/dL (13.5-17.5); Monocytes # (auto) 0.4 10 ^3/uL (0-1.3); White Blood Cell 6.2 10^3/uL (4.4-10.8)
[2024-05-05 06:04] LABS: BUN/Creatinine Ratio 13.2 (10.0-20.0); Basophils % (auto) 0.7 % (0.0-2.0); Blood Urea Nitrogen 10 mg/dL (9-23); Eosinophils % (auto) 1.7 % (0.0-7.0); Glucose 195 mg/dL (74-106); Lymphocytes # (auto) 0.4 10 ^3/uL (0.4-5.4); Lymphocytes % (auto) 7.1 % (10.0-50.0); Mean Corpuscular Hemoglobin 24.6 pg (28.0-32.0); Mean Corpuscular Hgb Conc. 31.1 g/dL (32.0-36.0); Mean Corpuscular Volume 79.1 fL (80.0-100.0); Monocytes % (auto) 7.1 % (0.0-12.0); Neutrophils # (auto) 5.2 10 ^3/uL (1.6-8.6); Neutrophils % (auto) 83.4 % (37.0-80.0); Platelet Count (auto) 233 10^3/uL (140-450); Red Cell Distribution Width 19.8 % (11.8-14.3)
--- NOTE | 2024-05-05 11:33 | DVHPN2 ---
Progress Note - Dictate Date Seen: May 05, 2024 Medical Necessity Reason Pt with a Central, PICC or Fol: No Subjective Patient was seen and evaluated at bedside. He reports Generalized weakness and left knee pain. PICC line changed. s/p b/l shoulder I and D, clavicular joint i and d, 04/29/2024 : extremity venous studies came back normal NO DVT vital signs Vital Sign Date Time Temp Pulse Resp B/P (MAP) Pulse Ox O2 Delivery O2 Flow Rate FiO2 05/05/24 10:30 89 18 135/42 05/05/24 08:06 98.3 93 98.3 05/04/24 20:00 Room Air* 0 21 Total Intake and Output 05/04/24 05/04/24 05/05/24 14:59 22:59 06:59 Intake Total 530 ml 50 ml Output Total 400 ml 275 ml Balance 130 ml -225 ml medications Current Medications Medications Dose Ordered Sig/Sunny Route Start Time Stop Time Status Last Admin Dose Admin Tamsulosin HCl 0.4 mg DAILY PO 04/25/24 10:00 05/05/24 09:29 0.4 MG Lorazepam 0.5 mg Q6HP PRN PO 04/24/24 22:15 Al Hydrox/Mg Hydrox/Simethicone 30 ml Q6HP PRN PO 04/24/24 22:15 Acetaminophen 650 mg Q6HP PRN PO 04/24/24 22:15 05/02/24 05:26 650 MG Ondansetron HCl 4 mg Q4HP PRN IV 04/24/24 22:15 Enoxaparin Sodium 30 mg DAILY SC 04/25/24 10:00 UNV Oxycodone/ Acetaminophen 2 tab Q6HP PRN PO 04/25/24 12:00 05/05/24 10:30 2 TAB Hydromorphone HCl 0.5 mg Q4HPRN PRN IV 04/26/24 13:15 05/05/24 09:26 0.5 MG Insulin Glargine 15 units HS SC 04/27/24 22:00 05/04/24 21:31 15 UNITS Cefazolin Sodium/ Dextrose 50 ml @ 50 mls/hr Q8H IV 04/29/24 00:00 05/05/24 08:20 50 MLS/HR Enoxaparin Sodium 40 mg DAILY SC 05/03/24 10:00 05/05/24 09:29 40 MG Ertapenem 1 gm/ Sodium Chloride 50 ml @ 100 mls/hr DAILY IV 05/03/24 10:00 05/05/24 09:29 100 MLS/HR Iron Sucrose 110 ml @ 110 mls/hr DAILY@1200 IV 05/04/24 12:00 05/08/24 12:59 05/04/24 12:12 110 MLS/HR Lidocaine HCl 15 ml ONCE PRN MT 05/04/24 08:15 Docusate Sodium 100 mg BID PO 05/04/24 22:00 objective General alert and oriented HEENT: Atraumatic Neck: No swelling Lungs: Equal air entry and clear to auscultation Cardiovascular: S2 heard no murmur Abdomen: Soft nontender, no organomegaly, nondistended ext: bilateral shoulder effusion decreased ROM of upper ext b/l transmetatarsal amputation left knee brace + Neuro: Alert and oriented, no focal deficit Psych: Normal mood and affect laboratory and microbiology Laboratory Tests 05/05/24 05:05 Test 05/05/24 05:05 Range/Units Serum Glucose 195 H 74-106 mg/dL Assessment/Plan Patient is a 63year-old Male with MSSA bacteremia Sepsis septic arthritis of left knee 2/2 MSSA septic clavicular joint s/p i and D NECK PAIN upper back pain shoulder pain : both h/o meth abuse h/o alcohol abuse former smoker CHF s/p b/l feet transmetatarsal amputation PAD Recommendations RYAN no vegetation CT surgery: no intervention Dr Adams did wash out shoulders/ again left knee ( he reported it was infected). b/l shoulder joint fluid cultures no growth s/p knee arthroscopy and wash out by ortho ( Dr Simpson) --Repeat two sets of blood cultures, last 04/23 which is positive and on 04/30 which is negative. --Continue dual therapy IV Cefazolin 2g q 8 hours and IV Ertapenem 1g daily for dual coverage. PICC line with IV cefazolin 2g q 8 hours for 6 weeks, with weekly labs cbc with diff, cmp and esr fax to [phone] he needs SNF placement due to drug abuse history Aerobic culture joint fluid, clavicular jt: 05/01, Staphylococcus aureus. both shoulder joint cultures are no growth blood cx from 05/02 shows no growth for 24 hours prognosis guarded thank you for opportunity for caring this patient. Discussed with provider. Dietary Evaluation Review Comments: 1) Refer pt to a RD/CDE upon DC 2) Continue current plan of care Expected Outcomes/Goals: 1) Pt to see a RD/CDE after DC 2) Pt labs to improve 3) F/U in 3-5 days Plan discussed with: Patient HAIDER VAUGHN MD May 05, 2024 11:33
[2024-05-05] MEDS: IRON SUCROSE COMPLEX 110 ML IV ONE (14:15)
--- NOTE | 2024-05-05 17:18 | DVHPN2 ---
Subjective Patient reporting generalized weakness and severe pain to left knee Reviewed: Care Plan, H&P, Labs, Medications, Previous Orders Changes from previous H/P or p: No Changes General: Per HPI Eyes: No Pain, No Vision change, No Conjunctivae inflammation, No Eyelid inflammation, No Other, No Redness ENT: No Ear pain, No Ear discharge, No Nose pain, No Nose discharge, No Nose congestion, No Mouth pain, No Mouth swelling, No Throat pain, No Throat swelling, No Other Cardiovascular: No Chest Pain, No Palpitations, No Orthopnea, No Paroxysmal Noc. Dyspnea, No Edema, No Lt Headedness, No Other Respiratory: No Cough, No Dry, No Shortness of breath, No SOB with excertion, No Wheezing, No Hemoptysis, No Pleuritic Pain, No Sputum, No Other Gastrointestinal: No Nausea, No Vomiting, No Abdominal Pain, No Diarrhea, No Constipation, No Melena, No Hematochezia, No Other Genitourinary: No Dysuria, No Frequency, No Incontinence, No Hematuria, No Retention, No Other Musculoskeletal: No other, No neck pain, No shoulder pain, No arm pain, No back pain, No hand pain, No leg pain, No foot pain Skin: No Rash, No Lesions, No Jaundice, No Bruising, No Other Objective Vitals Vital Signs Date Time Temp Pulse Resp B/P (MAP) Pulse Ox O2 Delivery O2 Flow Rate FiO2 05/05/24 17:00 98.6 69 16 139/43 (75) 93 98.6 05/04/24 20:00 Room Air* 0 21 Intake/Output Intake and Output 05/05/24 07:00 Intake Total 580 ml Output Total 675 ml Balance -95 ml Intake Oral 480 ml IV Total 100 ml Output Urine Total 675 ml # Bowel Movements 2 General Appearance: Alert, Oriented X3, Cooperative HEENT: Atraumatic, PERRLA Lungs: Clear to auscultation, Normal air movement Cardiovascular: Normal S1, Normal S2 Extremities: Other (Dressing to left lower extremity dry and intact.) Neuro: Sensation intact Skin: Dry, Intact Psych/Mental Status: Mental status NL, Mood NL Medications Current Medications Medications Dose Ordered Sig/Sunny Route Start Time Stop Time Status Last Admin Dose Admin Tamsulosin HCl 0.4 mg DAILY PO 04/25/24 10:00 05/05/24 09:29 0.4 MG Lorazepam 0.5 mg Q6HP PRN PO 04/24/24 22:15 Al Hydrox/Mg Hydrox/Simethicone 30 ml Q6HP PRN PO 04/24/24 22:15 Acetaminophen 650 mg Q6HP PRN PO 04/24/24 22:15 05/02/24 05:26 650 MG Ondansetron HCl 4 mg Q4HP PRN IV 04/24/24 22:15 Enoxaparin Sodium 30 mg DAILY SC 04/25/24 10:00 UNV Oxycodone/ Acetaminophen 2 tab Q6HP PRN PO 04/25/24 12:00 05/05/24 10:30 2 TAB Hydromorphone HCl 0.5 mg Q4HPRN PRN IV 04/26/24 13:15 05/05/24 14:04 0.5 MG Insulin Glargine 15 units HS SC 04/27/24 22:00 05/04/24 21:31 15 UNITS Cefazolin Sodium/ Dextrose 50 ml @ 50 mls/hr Q8H IV 04/29/24 00:00 05/05/24 16:08 50 MLS/HR Enoxaparin Sodium 40 mg DAILY SC 05/03/24 10:00 05/05/24 09:29 40 MG Ertapenem 1 gm/ Sodium Chloride 50 ml @ 100 mls/hr DAILY IV 05/03/24 10:00 05/05/24 09:29 100 MLS/HR Iron Sucrose 110 ml @ 110 mls/hr DAILY@1200 IV 05/04/24 12:00 05/08/24 12:59 05/04/24 12:12 110 MLS/HR Lidocaine HCl 15 ml ONCE PRN MT 05/04/24 08:15 Docusate Sodium 100 mg BID PO 05/04/24 22:00 Laboratory Results Laboratory Tests 05/05/24 05:05 Chemistry Test 05/05/24 05:05 Calcium Level 8.1 mg/dL (8.7-10.4) L Urinalysis Test 04/24/24 17:25 Urine Color Light-yellow (Yellow) Urine Clarity Clear (Clear) Urine pH 5.5 (5.0-9.0) Urine Specific [place] 1.031 (1.001-1.035) Urine Protein 1+ (Negative) H Urine Ketones 1+ (Negative) H Urine Blood 1+ /uL (Negative) H Urine Nitrite Negative (Negative) Urine Bilirubin Negative (Negative) Urine Urobilinogen Normal mg/dL (Negative) Urine Leukocyte Esterase Trace /uL (Negative) Urine RBC 5 /hpf (0 - 3) Urine WBC 19 /hpf (0 - 3) Urine Squamous Epithelial Cells Few /hpf (<5) Urine Bacteria None seen /hpf (None Seen) Urine Glucose 4+ mg/dL (Normal) H Microbiology Microbiology Date/Time Source Procedure Growth Status 05/02/24 16:32 Blood Blood Culture - Preliminary NO GROWTH AFTER 72 HOURS OF INCUBATION. Resulted 05/01/24 10:10 Other Gram Stain - Final Resulted 05/01/24 10:10 Other Anaerobic Culture - Preliminary Resulted 05/01/24 10:10 Aerobic Culture - Final Staphylococcus aureus Resulted 04/28/24 11:00 Aspirate Gram Stain - Final Complete 04/28/24 11:00 Aspirate Anaerobic Culture - Final Complete 04/28/24 11:00 Aerobic Culture - Final Staphylococcus aureus Complete Labs and/or images reviewed: Labs reviewed by me, Image(s) reviewed by me Assessment/Plan Assessment/Plan Impression: -sepsis -septic arthritis -acute on chronic decompensated systolic heart failure -syncope with collapse -history of probable coronary artery disease with CABG -diabetes mellitus, uncontrolled -acute kidney injury, vasomotor nephropathy -chronic pain syndrome with chronic opiate use -degenerative joint disease left shoulder and back -history of ETOH use -DTI to the left heel -left knee plateau fracture -multiple areas of septic embolus -bilateral pleural effusions Plan: -events: No events overnight. CT surgeon with the hospital is contracted with we will not see patient at this hospital. Social service consultation has been placed for transfer to facility with CT surgery for sternal abscess. At this time and continues to be challenging to find an accepting facility. Consultation has been placed with IR for possible drainage of sternal abscess if he was willing. -ID consultation: Recommendations reviewed -cardiology consultation : Recommendations reviewed -orthopedic surgery consultation -antibiotic therapy: Per Infectious Disease -PUD, DVT prophylaxis -bowel regimenaggressiv -continue regular insulin sliding scale and Lantus. -repeat labs in a.m. Total time spent with patient discussing and formulating plan of care: 35 minutes. This medical document was created using an electronic medical record system with [employer] dictation system. Although this document has been carefully reviewed, there may still be some phonetic and typographical errors. These areas are purely typographical due to imperfections of the software programs, and do not reflect any compromise in the patient's medical care. Plan discussed with: Patient, Other (RN) My Orders Orders - XOCHITL GRAY NP Procedure Category Date Status Time * Sulfide Head Operator CONS 05/04/24 Transmitted Consult 17:54 * Radiologist Consult CONS 05/05/24 Transmitted 16:03 Date of Service: May 05, 2024 Billing Provider: XOCHITL GRAY NP Common Visit Codes: [id number] INP/OBS CARE(HIGH) XOCHITL GRAY NP May 05, 2024 17:18
[2024-05-06] VITALS (8 sets, daily range): BP systolic 123–155; BP diastolic 52–68; PULSE 61–77; RESP 17–19; TEMP 97.5–98.4; O2SAT 90–93
--- NOTE | 2024-05-06 12:47 | DVHPN2 ---
Progress Note - Dictate Date Seen: May 06, 2024 Medical Necessity Reason Pt with a Central, PICC or Fol: No Subjective Patient was seen and evaluated at bedside. He reports Generalized weakness and left knee pain. PICC line changed. s/p b/l shoulder I and D, clavicular joint i and d, 04/29/2024 : extremity venous studies came back normal NO DVT vital signs Vital Sign Date Time Temp Pulse Resp B/P (MAP) Pulse Ox O2 Delivery O2 Flow Rate FiO2 05/06/24 12:42 67 19 135/55 05/06/24 08:30 98.1 91 98.1 05/05/24 20:00 Room Air* 0 21 Total Intake and Output 05/05/24 05/05/24 05/06/24 15:00 23:00 07:00 Intake Total 100 ml 760 ml 225 ml Balance 100 ml 760 ml 225 ml medications Current Medications Medications Dose Ordered Sig/Sunny Route Start Time Stop Time Status Last Admin Dose Admin Tamsulosin HCl 0.4 mg DAILY PO 04/25/24 10:00 05/06/24 08:52 0.4 MG Lorazepam 0.5 mg Q6HP PRN PO 04/24/24 22:15 Al Hydrox/Mg Hydrox/Simethicone 30 ml Q6HP PRN PO 04/24/24 22:15 Acetaminophen 650 mg Q6HP PRN PO 04/24/24 22:15 05/02/24 05:26 650 MG Ondansetron HCl 4 mg Q4HP PRN IV 04/24/24 22:15 Enoxaparin Sodium 30 mg DAILY SC 04/25/24 10:00 UNV Oxycodone/ Acetaminophen 2 tab Q6HP PRN PO 04/25/24 12:00 05/06/24 11:25 2 TAB Hydromorphone HCl 0.5 mg Q4HPRN PRN IV 04/26/24 13:15 05/06/24 08:53 0.5 MG Insulin Glargine 15 units HS SC 04/27/24 22:00 05/05/24 21:45 15 UNITS Cefazolin Sodium/ Dextrose 50 ml @ 50 mls/hr Q8H IV 04/29/24 00:00 05/06/24 08:52 50 MLS/HR Enoxaparin Sodium 40 mg DAILY SC 05/03/24 10:00 05/06/24 08:52 40 MG Ertapenem 1 gm/ Sodium Chloride 50 ml @ 100 mls/hr DAILY IV 05/03/24 10:00 05/06/24 11:24 100 MLS/HR Iron Sucrose 110 ml @ 110 mls/hr DAILY@1200 IV 05/04/24 12:00 05/08/24 12:59 05/06/24 12:38 110 MLS/HR Lidocaine HCl 15 ml ONCE PRN MT 05/04/24 08:15 Docusate Sodium 100 mg BID PO 05/04/24 22:00 objective General alert and oriented HEENT: Atraumatic Neck: No swelling Lungs: Equal air entry and clear to auscultation Cardiovascular: S2 heard no murmur Abdomen: Soft nontender, no organomegaly, nondistended ext: bilateral shoulder effusion decreased ROM of upper ext b/l transmetatarsal amputation left knee brace + Neuro: Alert and oriented, no focal deficit Psych: Normal mood and affect laboratory and microbiology Laboratory Tests 05/05/24 05:05 Test 05/05/24 05:05 Range/Units Serum Glucose 195 H 74-106 mg/dL Assessment/Plan Patient is a 63year-old Male with MSSA bacteremia Sepsis septic arthritis of left knee 2/2 MSSA septic clavicular joint s/p i and D NECK PAIN upper back pain shoulder pain : both h/o meth abuse h/o alcohol abuse former smoker CHF s/p b/l feet transmetatarsal amputation PAD Recommendations RYAN no vegetation CT surgery: no intervention he reported that is outside his scope. HLOC is pending however he has been refused by multiple facility. Dr Adams did wash out shoulders/ again left knee ( he reported it was infected). b/l shoulder joint fluid cultures no growth s/p knee arthroscopy and wash out by ortho ( Dr Simpson) --Repeat two sets of blood cultures, last 04/23 which is positive and on 04/30 which is negative. --Continue dual therapy IV Cefazolin 2g q 8 hours and IV Ertapenem 1g daily for dual coverage. PICC line with IV cefazolin 2g q 8 hours for 6 weeks, with weekly labs cbc with diff, cmp and esr fax to [phone] he needs SNF placement due to drug abuse history Aerobic culture joint fluid, clavicular jt: 05/01, Staphylococcus aureus. both shoulder joint cultures are no growth blood cx from 05/02 shows no growth for 24 hours prognosis guarded thank you for opportunity for caring this patient. Discussed with provider. Dietary Evaluation Review Comments: 1) Refer pt to a RD/CDE upon DC 2) Continue current plan of care Expected Outcomes/Goals: 1) Pt to see a RD/CDE after DC 2) Pt labs to improve 3) F/U in 3-5 days Plan discussed with: Other HAIDER VAUGHN MD May 06, 2024 12:47
--- NOTE | 2024-05-06 14:03 | DVHPN2 ---
Subjective Continues to report having loose stools Reviewed: Care Plan, H&P, Labs, Medications, Previous Orders Changes from previous H/P or p: No Changes General: Per HPI Eyes: No Pain, No Vision change, No Conjunctivae inflammation, No Eyelid inflammation, No Other, No Redness ENT: No Ear pain, No Ear discharge, No Nose pain, No Nose discharge, No Nose congestion, No Mouth pain, No Mouth swelling, No Throat pain, No Throat swelling, No Other Cardiovascular: No Chest Pain, No Palpitations, No Orthopnea, No Paroxysmal Noc. Dyspnea, No Edema, No Lt Headedness, No Other Respiratory: No Cough, No Dry, No Shortness of breath, No SOB with excertion, No Wheezing, No Hemoptysis, No Pleuritic Pain, No Sputum, No Other Gastrointestinal: No Nausea, No Vomiting, No Abdominal Pain, No Diarrhea, No Constipation, No Melena, No Hematochezia, No Other Genitourinary: No Dysuria, No Frequency, No Incontinence, No Hematuria, No Retention, No Other Musculoskeletal: No other, No neck pain, No shoulder pain, No arm pain, No back pain, No hand pain, No leg pain, No foot pain Skin: No Rash, No Lesions, No Jaundice, No Bruising, No Other Objective Vitals Vital Signs Date Time Temp Pulse Resp B/P (MAP) Pulse Ox O2 Delivery O2 Flow Rate FiO2 05/06/24 13:12 67 19 135/55 05/06/24 13:00 98.1 93 98.1 05/06/24 08:00 Room Air* 0 21 Intake/Output Intake and Output 05/06/24 07:00 Intake Total 1085 ml Balance 1085 ml Intake Oral 775 ml IV Total 310 ml # Voids 6 # Bowel Movements 6 General Appearance: Alert, Oriented X3, Cooperative HEENT: Atraumatic, PERRLA Lungs: Clear to auscultation, Normal air movement Cardiovascular: Normal S1, Normal S2 Extremities: Other (Dressing to left lower extremity dry and intact.) Neuro: Sensation intact Skin: Dry, Intact Psych/Mental Status: Mental status NL, Mood NL Medications Current Medications Medications Dose Ordered Sig/Sunny Route Start Time Stop Time Status Last Admin Dose Admin Tamsulosin HCl 0.4 mg DAILY PO 04/25/24 10:00 05/06/24 08:52 0.4 MG Lorazepam 0.5 mg Q6HP PRN PO 04/24/24 22:15 Al Hydrox/Mg Hydrox/Simethicone 30 ml Q6HP PRN PO 04/24/24 22:15 Acetaminophen 650 mg Q6HP PRN PO 04/24/24 22:15 05/02/24 05:26 650 MG Ondansetron HCl 4 mg Q4HP PRN IV 04/24/24 22:15 Enoxaparin Sodium 30 mg DAILY SC 04/25/24 10:00 UNV Oxycodone/ Acetaminophen 2 tab Q6HP PRN PO 04/25/24 12:00 05/06/24 11:25 2 TAB Hydromorphone HCl 0.5 mg Q4HPRN PRN IV 04/26/24 13:15 05/06/24 13:12 0.5 MG Insulin Glargine 15 units HS SC 04/27/24 22:00 05/05/24 21:45 15 UNITS Cefazolin Sodium/ Dextrose 50 ml @ 50 mls/hr Q8H IV 04/29/24 00:00 05/06/24 08:52 50 MLS/HR Enoxaparin Sodium 40 mg DAILY SC 05/03/24 10:00 05/06/24 08:52 40 MG Ertapenem 1 gm/ Sodium Chloride 50 ml @ 100 mls/hr DAILY IV 05/03/24 10:00 05/06/24 11:24 100 MLS/HR Iron Sucrose 110 ml @ 110 mls/hr DAILY@1200 IV 05/04/24 12:00 05/08/24 12:59 05/06/24 12:38 110 MLS/HR Lidocaine HCl 15 ml ONCE PRN MT 05/04/24 08:15 Docusate Sodium 100 mg BID PO 05/04/24 22:00 Laboratory Results Laboratory Tests 05/05/24 05:05 Urinalysis Test 04/24/24 17:25 Urine Color Light-yellow (Yellow) Urine Clarity Clear (Clear) Urine pH 5.5 (5.0-9.0) Urine Specific [place] 1.031 (1.001-1.035) Urine Protein 1+ (Negative) H Urine Ketones 1+ (Negative) H Urine Blood 1+ /uL (Negative) H Urine Nitrite Negative (Negative) Urine Bilirubin Negative (Negative) Urine Urobilinogen Normal mg/dL (Negative) Urine Leukocyte Esterase Trace /uL (Negative) Urine RBC 5 /hpf (0 - 3) Urine WBC 19 /hpf (0 - 3) Urine Squamous Epithelial Cells Few /hpf (<5) Urine Bacteria None seen /hpf (None Seen) Urine Glucose 4+ mg/dL (Normal) H Microbiology Microbiology Date/Time Source Procedure Growth Status 05/02/24 16:32 Blood Blood Culture - Preliminary NO GROWTH AFTER 72 HOURS OF INCUBATION. Resulted 05/01/24 10:10 Other Gram Stain - Final Resulted 05/01/24 10:10 Other Anaerobic Culture - Preliminary Resulted 05/01/24 10:10 Aerobic Culture - Final Staphylococcus aureus Resulted 04/28/24 11:00 Aspirate Gram Stain - Final Complete 04/28/24 11:00 Aspirate Anaerobic Culture - Final Complete 04/28/24 11:00 Aerobic Culture - Final Staphylococcus aureus Complete Labs and/or images reviewed: Labs reviewed by me, Image(s) reviewed by me Assessment/Plan Assessment/Plan Impression: -sepsis -septic arthritis -acute on chronic decompensated systolic heart failure -syncope with collapse -history of probable coronary artery disease with CABG -diabetes mellitus, uncontrolled -acute kidney injury, vasomotor nephropathy -chronic pain syndrome with chronic opiate use -degenerative joint disease left shoulder and back -history of ETOH use -DTI to the left heel -left knee plateau fracture -multiple areas of septic embolus -bilateral pleural effusions Plan: -events: No events overnight. Unable to transfer patient given all facilities thus far have declined. IR consultation pending for possible abscess drainage -ID consultation: Recommendations reviewed -cardiology consultation : Recommendations reviewed -orthopedic surgery consultation -antibiotic therapy: Per Infectious Disease -PUD, DVT prophylaxis -Lomotil for diarrhea -continue regular insulin sliding scale and Lantus. -repeat labs in a.m. Total time spent with patient discussing and formulating plan of care: 35 minutes. This medical document was created using an electronic medical record system with [employer] dictation system. Although this document has been carefully reviewed, there may still be some phonetic and typographical errors. These areas are purely typographical due to imperfections of the software programs, and do not reflect any compromise in the patient's medical care. Plan discussed with: Patient, Other (RN) My Orders Orders - XOCHITL GRAY NP Procedure Category Date Status Time * Radiologist Consult CONS 05/05/24 Transmitted 16:03 Hydromorphone PHA 05/06/24 Verified Injection (Dilaudid 14:15 Date of Service: May 06, 2024 Billing Provider: XOCHITL GRAY NP Common Visit Codes: [id number] INP/OBS CARE(HIGH) XOCHITL GRAY NP May 06, 2024 14:03
[2024-05-06] MEDS ORDERED: DIPHENOXYLATE W/ATROPINE 2.5 MG TAB PO PRN (14:15)
[2024-05-06] MEDS: HYDROmorphone HCL 2 MG/ML VL/or syr IV PRN (16:06)
[2024-05-07] VITALS (9 sets, daily range): BP systolic 124–157; BP diastolic 50–81; PULSE 60–67; RESP 17–20; TEMP 97.3–98.4; O2SAT 91–95
--- NOTE | 2024-05-07 09:14 | DVHPN2 ---
Subjective Denies diarrhea. Reviewed: Care Plan, H&P, Labs, Medications, Previous Orders Changes from previous H/P or p: Changes General: Per HPI Eyes: No Pain, No Vision change, No Conjunctivae inflammation, No Eyelid inflammation, No Other, No Redness ENT: No Ear pain, No Ear discharge, No Nose pain, No Nose discharge, No Nose congestion, No Mouth pain, No Mouth swelling, No Throat pain, No Throat swelling, No Other Cardiovascular: No Chest Pain, No Palpitations, No Orthopnea, No Paroxysmal Noc. Dyspnea, No Edema, No Lt Headedness, No Other Respiratory: No Cough, No Dry, No Shortness of breath, No SOB with excertion, No Wheezing, No Hemoptysis, No Pleuritic Pain, No Sputum, No Other Gastrointestinal: No Nausea, No Vomiting, No Abdominal Pain, No Diarrhea, No Constipation, No Melena, No Hematochezia, No Other Genitourinary: No Dysuria, No Frequency, No Incontinence, No Hematuria, No Retention, No Other Musculoskeletal: No other, No neck pain, No shoulder pain, No arm pain, No back pain, No hand pain, No leg pain, No foot pain Skin: No Rash, No Lesions, No Jaundice, No Bruising, No Other Objective Vitals Vital Signs Date Time Temp Pulse Resp B/P (MAP) Pulse Ox O2 Delivery O2 Flow Rate FiO2 05/07/24 06:01 66 18 148/60 05/07/24 05:00 98.3 93 98.3 05/06/24 20:00 Room Air* 0 21 Intake/Output Intake and Output 05/07/24 07:00 Intake Total 785 ml Output Total 502 ml Balance 283 ml Intake Oral 585 ml IV Total 200 ml Output Urine Total 500 ml Stool Total 2 ml General Appearance: Alert, Oriented X3, Cooperative HEENT: Atraumatic, PERRLA Lungs: Clear to auscultation, Normal air movement Cardiovascular: Normal S1, Normal S2 Extremities: Other (Dressing to left lower extremity dry and intact.) Neuro: Sensation intact Skin: Dry, Intact Psych/Mental Status: Mental status NL, Mood NL Medications Current Medications Medications Dose Ordered Sig/Sunny Route Start Time Stop Time Status Last Admin Dose Admin Tamsulosin HCl 0.4 mg DAILY PO 04/25/24 10:00 05/06/24 08:52 0.4 MG Lorazepam 0.5 mg Q6HP PRN PO 04/24/24 22:15 Al Hydrox/Mg Hydrox/Simethicone 30 ml Q6HP PRN PO 04/24/24 22:15 Acetaminophen 650 mg Q6HP PRN PO 04/24/24 22:15 05/02/24 05:26 650 MG Ondansetron HCl 4 mg Q4HP PRN IV 04/24/24 22:15 Enoxaparin Sodium 30 mg DAILY SC 04/25/24 10:00 UNV Oxycodone/ Acetaminophen 2 tab Q6HP PRN PO 04/25/24 12:00 05/06/24 11:25 2 TAB Insulin Glargine 15 units HS SC 04/27/24 22:00 05/06/24 21:16 15 UNITS Cefazolin Sodium/ Dextrose 50 ml @ 50 mls/hr Q8H IV 04/29/24 00:00 05/07/24 00:28 50 MLS/HR Enoxaparin Sodium 40 mg DAILY SC 05/03/24 10:00 05/06/24 08:52 40 MG Ertapenem 1 gm/ Sodium Chloride 50 ml @ 100 mls/hr DAILY IV 05/03/24 10:00 05/06/24 11:24 100 MLS/HR Iron Sucrose 110 ml @ 110 mls/hr DAILY@1200 IV 05/04/24 12:00 05/08/24 12:59 05/06/24 12:38 110 MLS/HR Lidocaine HCl 15 ml ONCE PRN MT 05/04/24 08:15 Docusate Sodium 100 mg BID PO 05/04/24 22:00 05/06/24 21:16 100 MG Hydromorphone HCl 1 mg Q4HPRN PRN IV 05/06/24 14:15 05/07/24 05:31 1 MG Diphenoxylate HCl/ Atropine 2.5 mg Q12HP PRN PO 05/06/24 14:15 Laboratory Results Laboratory Tests 05/05/24 05:05 Urinalysis Test 04/24/24 17:25 Urine Color Light-yellow (Yellow) Urine Clarity Clear (Clear) Urine pH 5.5 (5.0-9.0) Urine Specific [place] 1.031 (1.001-1.035) Urine Protein 1+ (Negative) H Urine Ketones 1+ (Negative) H Urine Blood 1+ /uL (Negative) H Urine Nitrite Negative (Negative) Urine Bilirubin Negative (Negative) Urine Urobilinogen Normal mg/dL (Negative) Urine Leukocyte Esterase Trace /uL (Negative) Urine RBC 5 /hpf (0 - 3) Urine WBC 19 /hpf (0 - 3) Urine Squamous Epithelial Cells Few /hpf (<5) Urine Bacteria None seen /hpf (None Seen) Urine Glucose 4+ mg/dL (Normal) H Microbiology Microbiology Date/Time Source Procedure Growth Status 05/02/24 16:32 Blood Blood Culture - Preliminary NO GROWTH AFTER 72 HOURS OF INCUBATION. Resulted 05/01/24 10:10 Other Gram Stain - Final Complete 05/01/24 10:10 Other Anaerobic Culture - Final Complete 05/01/24 10:10 Aerobic Culture - Final Staphylococcus aureus Complete 04/28/24 11:00 Aspirate Gram Stain - Final Complete 04/28/24 11:00 Aspirate Anaerobic Culture - Final Complete 04/28/24 11:00 Aerobic Culture - Final Staphylococcus aureus Complete Labs and/or images reviewed: Labs reviewed by me, Image(s) reviewed by me Assessment/Plan Assessment/Plan Impression: -sepsis -septic arthritis -acute on chronic decompensated systolic heart failure -syncope with collapse -history of probable coronary artery disease with CABG -diabetes mellitus, uncontrolled -acute kidney injury, vasomotor nephropathy -chronic pain syndrome with chronic opiate use -degenerative joint disease left shoulder and back -history of ETOH use -DTI to the left heel -left knee plateau fracture -multiple areas of septic embolus -bilateral pleural effusions Plan: -events: No events overnight. Unable to transfer patient given all facilities thus far have declined. IR consultation pending for possible abscess drainage. Pending assessment by IR as well as transferred to higher level of care. According to social service notes, patient has been declined at all higher level of care facilities. -ID consultation: Recommendations reviewed -cardiology consultation : Recommendations reviewed -orthopedic surgery consultation -antibiotic therapy: Per Infectious Disease -PUD, DVT prophylaxis -Lomotil for diarrhea -continue regular insulin sliding scale and Lantus. -repeat labs in a.m. Total time spent with patient discussing and formulating plan of care: 35 minutes. This medical document was created using an electronic medical record system with [employer] dictation system. Although this document has been carefully reviewed, there may still be some phonetic and typographical errors. These areas are purely typographical due to imperfections of the software programs, and do not reflect any compromise in the patient's medical care. Plan discussed with: Patient, Other (RN) My Orders Orders - XOCHITL GRAY NP Procedure Category Date Status Time Hydromorphone PHA 05/06/24 In Process Injection (Dilaudid 14:15 Diphenoxylate/Atropine PHA 05/06/24 In Process Tablet (Lomotil T 14:15 Basic Metabolic Panel LAB 05/08/24 Verified 05:00 Basic Metabolic Panel LAB 05/09/24 Verified 05:00 Basic Metabolic Panel LAB 05/10/24 Verified 05:00 Complete Blood Count LAB 05/08/24 Verified 05:00 Complete Blood Count LAB 05/09/24 Verified 05:00 Complete Blood Count LAB 05/10/24 Verified 05:00 Date of Service: May 07, 2024 Billing Provider: XOCHITL GRAY NP Common Visit Codes: [id number] INP/OBS CARE(HIGH) XOCHITL GRAY NP May 07, 2024 09:14
--- NOTE | 2024-05-07 09:37 | DVHPN2 ---
Progress Note - Dictate Date Seen: May 07, 2024 Medical Necessity Reason Pt with a Central, PICC or Fol: No Subjective Patient was seen and evaluated at bedside. He had diarrhea which has been improved now. s/p b/l shoulder I and D, clavicular joint i and d, 04/29/2024 : extremity venous studies came back normal NO DVT vital signs Vital Sign Date Time Temp Pulse Resp B/P (MAP) Pulse Ox O2 Delivery O2 Flow Rate FiO2 05/07/24 06:01 66 18 148/60 05/07/24 05:00 98.3 93 98.3 05/06/24 20:00 Room Air* 0 21 Total Intake and Output 05/06/24 05/06/24 05/07/24 15:00 23:00 07:00 Intake Total 100 ml 510 ml 175 ml Output Total 302 ml 200 ml Balance 100 ml 208 ml -25 ml medications Current Medications Medications Dose Ordered Sig/Sunny Route Start Time Stop Time Status Last Admin Dose Admin Tamsulosin HCl 0.4 mg DAILY PO 04/25/24 10:00 05/06/24 08:52 0.4 MG Lorazepam 0.5 mg Q6HP PRN PO 04/24/24 22:15 Al Hydrox/Mg Hydrox/Simethicone 30 ml Q6HP PRN PO 04/24/24 22:15 Acetaminophen 650 mg Q6HP PRN PO 04/24/24 22:15 05/02/24 05:26 650 MG Ondansetron HCl 4 mg Q4HP PRN IV 04/24/24 22:15 Enoxaparin Sodium 30 mg DAILY SC 04/25/24 10:00 UNV Oxycodone/ Acetaminophen 2 tab Q6HP PRN PO 04/25/24 12:00 05/06/24 11:25 2 TAB Insulin Glargine 15 units HS SC 04/27/24 22:00 05/06/24 21:16 15 UNITS Cefazolin Sodium/ Dextrose 50 ml @ 50 mls/hr Q8H IV 04/29/24 00:00 05/07/24 00:28 50 MLS/HR Enoxaparin Sodium 40 mg DAILY SC 05/03/24 10:00 05/06/24 08:52 40 MG Ertapenem 1 gm/ Sodium Chloride 50 ml @ 100 mls/hr DAILY IV 05/03/24 10:00 05/06/24 11:24 100 MLS/HR Iron Sucrose 110 ml @ 110 mls/hr DAILY@1200 IV 05/04/24 12:00 05/08/24 12:59 05/06/24 12:38 110 MLS/HR Lidocaine HCl 15 ml ONCE PRN MT 05/04/24 08:15 Docusate Sodium 100 mg BID PO 05/04/24 22:00 05/06/24 21:16 100 MG Hydromorphone HCl 1 mg Q4HPRN PRN IV 05/06/24 14:15 05/07/24 05:31 1 MG Diphenoxylate HCl/ Atropine 2.5 mg Q12HP PRN PO 05/06/24 14:15 objective General alert and oriented HEENT: Atraumatic Neck: No swelling Lungs: Equal air entry and clear to auscultation Cardiovascular: S2 heard no murmur Abdomen: Soft nontender, no organomegaly, nondistended ext: bilateral shoulder effusion decreased ROM of upper ext b/l transmetatarsal amputation left knee brace + Neuro: Alert and oriented, no focal deficit Psych: Normal mood and affect laboratory and microbiology Laboratory Tests 05/05/24 05:05 Test 05/05/24 05:05 Range/Units Serum Glucose 195 H 74-106 mg/dL Assessment/Plan Patient is a 63year-old Male with MSSA bacteremia Sepsis septic arthritis of left knee 2/2 MSSA septic clavicular joint s/p i and D NECK PAIN upper back pain shoulder pain : both h/o meth abuse h/o alcohol abuse former smoker CHF s/p b/l feet transmetatarsal amputation PAD Recommendations RYAN no vegetation CT surgery: no intervention he reported that is outside his scope. HLOC is pending however he has been refused by multiple facility. Dr Adams did wash out shoulders/ again left knee ( he reported it was infected). b/l shoulder joint fluid cultures no growth s/p knee arthroscopy and wash out by ortho ( Dr Simpson) --Repeat two sets of blood cultures, last 04/23 which is positive and on 04/30 which is negative. --Continue dual therapy IV Cefazolin 2g q 8 hours and IV Ertapenem 1g daily for dual coverage. PICC line with IV cefazolin 2g q 8 hours for 6 weeks, with weekly labs cbc with diff, cmp and esr fax to [phone] he needs SNF placement due to drug abuse history Aerobic culture joint fluid, clavicular jt: 05/01, Staphylococcus aureus. both shoulder joint cultures are no growth blood cx from 05/02 shows no growth for 24 hours prognosis guarded thank you for opportunity for caring this patient. Discussed with provider. Dietary Evaluation Review Comments: 1) Refer pt to a RD/CDE upon DC 2) Continue current plan of care Expected Outcomes/Goals: 1) Pt to see a RD/CDE after DC 2) Pt labs to improve 3) F/U in 3-5 days Plan discussed with: HAIDER Zapata MD May 07, 2024 09:37
--- NOTE | 2024-05-07 16:01 | DVH ---
US CHEST ULTRASOUND, HISTORY: Assess questionable abscess to right upper sternum COMPARISON(S): None TECHNICAL DATA: Transverse and longitudinal images are obtained of the chest. FINDIN.1 x 1.8 x 2.5 cm irregular/ complex phlegmon or fluid collection seen in the right chest wall at th e area of interest. IMPRESSION(S): 2.1 x 1.8 x 2.5 cm irregular/ complex phlegmon or fluid collection seen in the right chest wall at th e area of interest.
[2024-05-08] VITALS (10 sets, daily range): BP systolic 62–149; BP diastolic 23–72; PULSE 60–71; RESP 16–22; TEMP 97.2–99.1; O2SAT 91–97
[2024-05-08 05:22] LABS: Basophils # (auto) 0.1 10 ^3/uL (0-0.2); Eosinophils # (auto) 0.2 10 ^3/uL (0-0.8); Hemoglobin 8.4 g/dL (13.5-17.5); Lymphocytes % (auto) 9.5 % (10.0-50.0); Monocytes # (auto) 0.6 10 ^3/uL (0-1.3); Nucleated Red Blood Cells % 0.1 %
[2024-05-08 05:26] LABS: Eosinophils % (auto) 3.1 % (0.0-7.0); Hematocrit 27.6 % (41.0-53.0); Lymphocytes # (auto) 0.7 10 ^3/uL (0.4-5.4); Mean Corpuscular Hemoglobin 25.6 pg (28.0-32.0); Mean Corpuscular Hgb Conc. 30.4 g/dL (32.0-36.0); Mean Corpuscular Volume 84.1 fL (80.0-100.0); Monocytes % (auto) 7.5 % (0.0-12.0); Neutrophils % (auto) 78.9 % (37.0-80.0); Platelet Count (auto) 249 10^3/uL (140-450); Red Blood Cells 3.28 10^6/uL (4.5-5.90); Red Cell Distribution Width 20.7 % (11.8-14.3); White Blood Cell 7.6 10^3/uL (4.4-10.8)
[2024-05-08 05:36] LABS: Chloride 105 mmol/L (98-107); Potassium 4.2 mmol/L (3.5-5.1); Sodium 138 mmol/L (136-145)
[2024-05-08 05:37] LABS: Anion Gap 12 (5-15); Carbon Dioxide 21 mmol/L (20-31)
[2024-05-08 05:42] LABS: BUN/Creatinine Ratio 11.1 (10.0-20.0)
[2024-05-08 05:45] LABS: Blood Urea Nitrogen 7 mg/dL (9-23); Calcium 7.9 mg/dL (8.7-10.4); Glucose 181 mg/dL (74-106)
--- NOTE | 2024-05-08 10:57 | DVHPN2 ---
Progress Note - Dictate Date Seen: May 08, 2024 Medical Necessity Reason Pt with a Central, PICC or Fol: No Subjective no new complaints refuses wound care 04/29/2024 : extremity venous studies came back normal NO DVT vital signs Vital Sign Date Time Temp Pulse Resp B/P (MAP) Pulse Ox O2 Delivery O2 Flow Rate FiO2 05/08/24 09:10 22 130/60 (83) 05/08/24 09:08 98.2 62 97 98.2 05/07/24 20:00 Room Air* 0 21 Total Intake and Output 05/07/24 05/07/24 05/08/24 15:00 23:00 07:00 Intake Total 50 ml 260 ml 225 ml Output Total 625 ml 325 ml Balance 50 ml -365 ml -100 ml medications Current Medications Medications Dose Ordered Sig/Sunny Route Start Time Stop Time Status Last Admin Dose Admin Tamsulosin HCl 0.4 mg DAILY PO 04/25/24 10:00 05/08/24 09:07 0.4 MG Lorazepam 0.5 mg Q6HP PRN PO 04/24/24 22:15 05/08/24 01:50 0.5 MG Al Hydrox/Mg Hydrox/Simethicone 30 ml Q6HP PRN PO 04/24/24 22:15 Acetaminophen 650 mg Q6HP PRN PO 04/24/24 22:15 05/02/24 05:26 650 MG Ondansetron HCl 4 mg Q4HP PRN IV 04/24/24 22:15 Enoxaparin Sodium 30 mg DAILY SC 04/25/24 10:00 UNV Oxycodone/ Acetaminophen 2 tab Q6HP PRN PO 04/25/24 12:00 05/08/24 10:22 2 TAB Insulin Glargine 15 units HS SC 04/27/24 22:00 05/07/24 21:33 15 UNITS Cefazolin Sodium/ Dextrose 50 ml @ 50 mls/hr Q8H IV 04/29/24 00:00 05/08/24 08:52 50 MLS/HR Enoxaparin Sodium 40 mg DAILY SC 05/03/24 10:00 05/08/24 09:08 40 MG Ertapenem 1 gm/ Sodium Chloride 50 ml @ 100 mls/hr DAILY IV 05/03/24 10:00 05/08/24 10:22 100 MLS/HR Iron Sucrose 110 ml @ 110 mls/hr DAILY@1200 IV 05/04/24 12:00 05/08/24 12:59 05/07/24 12:20 110 MLS/HR Lidocaine HCl 15 ml ONCE PRN MT 05/04/24 08:15 Docusate Sodium 100 mg BID PO 05/04/24 22:00 05/06/24 21:16 100 MG Hydromorphone HCl 1 mg Q4HPRN PRN IV 05/06/24 14:15 05/08/24 06:45 1 MG Diphenoxylate HCl/ Atropine 2.5 mg Q12HP PRN PO 05/06/24 14:15 objective General alert and oriented HEENT: Atraumatic Neck: No swelling Lungs: Equal air entry and clear to auscultation Cardiovascular: S2 heard no murmur Abdomen: Soft nontender, no organomegaly, nondistended ext: bilateral shoulder effusion decreased ROM of upper ext b/l transmetatarsal amputation left knee brace + Neuro: Alert and oriented, no focal deficit Psych: Normal mood and affect laboratory and microbiology Laboratory Tests 05/08/24 04:32 Test 05/08/24 04:32 Range/Units Serum Glucose 181 H 74-106 mg/dL Assessment/Plan Patient is a 63year-old Male with MSSA bacteremia Sepsis septic arthritis of left knee 2/2 MSSA septic clavicular joint s/p i and D NECK PAIN upper back pain shoulder pain : both h/o meth abuse h/o alcohol abuse former smoker CHF s/p b/l feet transmetatarsal amputation PAD Recommendations RYAN no vegetation CT surgery: no intervention he reported that is outside his scope. HLOC is pending however he has been refused by multiple facility. vs IR? Dr Adams did wash out shoulders/ again left knee ( he reported it was infected). b/l shoulder joint fluid cultures no growth s/p knee arthroscopy and wash out by ortho ( Dr Simpson) --Repeat two sets of blood cultures, last 04/23 which is positive and on 04/30 which is negative. --Continue dual therapy IV Cefazolin 2g q 8 hours and IV Ertapenem 1g daily for dual coverage. PICC line with IV cefazolin 2g q 8 hours for 6 weeks, with weekly labs cbc with diff, cmp and esr fax to [phone] he needs SNF placement due to drug abuse history Aerobic culture joint fluid, clavicular jt: 05/01, Staphylococcus aureus. both shoulder joint cultures are no growth blood cx from 05/02 shows no growth for 24 hours prognosis guarded thank you for opportunity for caring this patient. Discussed with provider. Dietary Evaluation Review Comments: 1) Refer pt to a RD/CDE upon DC 2) Continue current plan of care Expected Outcomes/Goals: 1) Pt to see a RD/CDE after DC 2) Pt labs to improve 3) F/U in 3-5 days Plan discussed with: Other HAIDER VAUGHN MD May 08, 2024 10:57
--- NOTE | 2024-05-08 14:07 | DVHPN2 ---
Subjective The patient is seen and examined at bedside. Complain of shoulder pain, knee pain. No fever or chills overnight. Reviewed: Care Plan, H&P, Labs, Medications, Previous Orders Changes from previous H/P or p: No Changes General: Per HPI Eyes: No Pain, No Vision change, No Conjunctivae inflammation, No Eyelid inflammation, No Other, No Redness ENT: No Ear pain, No Ear discharge, No Nose pain, No Nose discharge, No Nose congestion, No Mouth pain, No Mouth swelling, No Throat pain, No Throat swelling, No Other Cardiovascular: No Chest Pain, No Palpitations, No Orthopnea, No Paroxysmal Noc. Dyspnea, No Edema, No Lt Headedness, No Other Respiratory: No Cough, No Dry, No Shortness of breath, No SOB with excertion, No Wheezing, No Hemoptysis, No Pleuritic Pain, No Sputum, No Other Gastrointestinal: No Nausea, No Vomiting, No Abdominal Pain, No Diarrhea, No Constipation, No Melena, No Hematochezia, No Other Genitourinary: No Dysuria, No Frequency, No Incontinence, No Hematuria, No Retention, No Other Musculoskeletal: No other, No neck pain, No shoulder pain, No arm pain, No back pain, No hand pain, No leg pain, No foot pain Skin: No Rash, No Lesions, No Jaundice, No Bruising, No Other Objective Vitals Vital Signs Date Time Temp Pulse Resp B/P (MAP) Pulse Ox O2 Delivery O2 Flow Rate FiO2 05/08/24 09:10 22 130/60 (83) 05/08/24 09:08 98.2 62 97 98.2 05/08/24 08:00 Room Air* 0 21 Intake/Output Intake and Output 05/08/24 07:00 Intake Total 535 ml Output Total 950 ml Balance -415 ml Intake Oral 225 ml IV Total 310 ml Output Urine Total 950 ml General Appearance: Alert, Oriented X3, Cooperative HEENT: Atraumatic, PERRLA Lungs: Clear to auscultation, Normal air movement Cardiovascular: Normal S1, Normal S2 Extremities: Other (Dressing to left lower extremity dry and intact.) Neuro: Sensation intact Skin: Dry, Intact Psych/Mental Status: Mental status NL, Mood NL Medications Current Medications Medications Dose Ordered Sig/Sunny Route Start Time Stop Time Status Last Admin Dose Admin Tamsulosin HCl 0.4 mg DAILY PO 04/25/24 10:00 05/08/24 09:07 0.4 MG Lorazepam 0.5 mg Q6HP PRN PO 04/24/24 22:15 05/08/24 01:50 0.5 MG Al Hydrox/Mg Hydrox/Simethicone 30 ml Q6HP PRN PO 04/24/24 22:15 Acetaminophen 650 mg Q6HP PRN PO 04/24/24 22:15 05/02/24 05:26 650 MG Ondansetron HCl 4 mg Q4HP PRN IV 04/24/24 22:15 Enoxaparin Sodium 30 mg DAILY SC 04/25/24 10:00 UNV Oxycodone/ Acetaminophen 2 tab Q6HP PRN PO 04/25/24 12:00 05/08/24 10:22 2 TAB Insulin Glargine 15 units HS SC 04/27/24 22:00 05/07/24 21:33 15 UNITS Cefazolin Sodium/ Dextrose 50 ml @ 50 mls/hr Q8H IV 04/29/24 00:00 05/08/24 08:52 50 MLS/HR Enoxaparin Sodium 40 mg DAILY SC 05/03/24 10:00 05/08/24 09:08 40 MG Ertapenem 1 gm/ Sodium Chloride 50 ml @ 100 mls/hr DAILY IV 05/03/24 10:00 05/08/24 10:22 100 MLS/HR Lidocaine HCl 15 ml ONCE PRN MT 05/04/24 08:15 Docusate Sodium 100 mg BID PO 05/04/24 22:00 05/06/24 21:16 100 MG Hydromorphone HCl 1 mg Q4HPRN PRN IV 05/06/24 14:15 05/08/24 06:45 1 MG Diphenoxylate HCl/ Atropine 2.5 mg Q12HP PRN PO 05/06/24 14:15 Laboratory Results Laboratory Tests 05/08/24 04:32 Chemistry Test 05/08/24 04:32 Calcium Level 7.9 mg/dL (8.7-10.4) L Urinalysis Test 04/24/24 17:25 Urine Color Light-yellow (Yellow) Urine Clarity Clear (Clear) Urine pH 5.5 (5.0-9.0) Urine Specific [place] 1.031 (1.001-1.035) Urine Protein 1+ (Negative) H Urine Ketones 1+ (Negative) H Urine Blood 1+ /uL (Negative) H Urine Nitrite Negative (Negative) Urine Bilirubin Negative (Negative) Urine Urobilinogen Normal mg/dL (Negative) Urine Leukocyte Esterase Trace /uL (Negative) Urine RBC 5 /hpf (0 - 3) Urine WBC 19 /hpf (0 - 3) Urine Squamous Epithelial Cells Few /hpf (<5) Urine Bacteria None seen /hpf (None Seen) Urine Glucose 4+ mg/dL (Normal) H Microbiology Microbiology Date/Time Source Procedure Growth Status 05/02/24 16:32 Blood Blood Culture - Final NO GROWTH AFTER 5 DAYS OF INCUBATION. Complete 05/01/24 10:10 Other Gram Stain - Final Complete 05/01/24 10:10 Other Anaerobic Culture - Final Complete 05/01/24 10:10 Aerobic Culture - Final Staphylococcus aureus Complete 04/28/24 11:00 Aspirate Gram Stain - Final Complete 04/28/24 11:00 Aspirate Anaerobic Culture - Final Complete 04/28/24 11:00 Aerobic Culture - Final Staphylococcus aureus Complete Labs and/or images reviewed: Labs reviewed by me Assessment/Plan Assessment/Plan -sepsis -septic arthritis -acute on chronic decompensated systolic heart failure -syncope with collapse -history of probable coronary artery disease with CABG -diabetes mellitus, uncontrolled -acute kidney injury, vasomotor nephropathy -chronic pain syndrome with chronic opiate use -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 Continuing with IV antibiotic. Appreciate Infectious Disease recommendation. Unable to transfer patient given all facilities thus far have declined. IR consultation pending for possible abscess drainage. Pending assessment by IR as well as transferred to higher level of care. According to social service notes, patient has been declined at all higher level of care facilities. cardiology consultation appreciated. Orthopedic surgery consultation. Continuing with pain medication. -PUD, DVT prophylaxis -Lomotil for diarrhea -continue regular insulin sliding scale and Lantus. Plan discussed with: Patient Date of Service: May 08, 2024 Billing Provider: FRANCA ENCINAS MD Common Visit Codes: [id number] INP/OBS CARE(HIGH) FRANCA ENCINAS MD May 08, 2024 14:06
[2024-05-09] VITALS (8 sets, daily range): BP systolic 116–145; BP diastolic 45–75; PULSE 55–71; RESP 17–20; TEMP 97.9–99.1; O2SAT 91–98
[2024-05-09 05:56] LABS: Basophils # (auto) 0 10 ^3/uL (0-0.2); Basophils % (auto) 0.6 % (0.0-2.0); Lymphocytes # (auto) 0.6 10 ^3/uL (0.4-5.4); Red Blood Cells 3.06 10^6/uL (4.5-5.90)
[2024-05-09 05:58] LABS: Eosinophils # (auto) 0.2 10 ^3/uL (0-0.8); Eosinophils % (auto) 2.2 % (0.0-7.0); Hematocrit 25.4 % (41.0-53.0); Lymphocytes % (auto) 8.8 % (10.0-50.0); Mean Corpuscular Hemoglobin 26.1 pg (28.0-32.0); Mean Corpuscular Hgb Conc. 31.4 g/dL (32.0-36.0); Mean Corpuscular Volume 83.1 fL (80.0-100.0); Monocytes # (auto) 0.6 10 ^3/uL (0-1.3); Neutrophils # (auto) 5.7 10 ^3/uL (1.6-8.6); Neutrophils % (auto) 80.4 % (37.0-80.0); Nucleated Red Blood Cells % 0.1 %; Platelet Count (auto) 257 10^3/uL (140-450); Red Cell Distribution Width 20.9 % (11.8-14.3); White Blood Cell 7.1 10^3/uL (4.4-10.8)
[2024-05-09 06:07] LABS: Chloride 105 mmol/L (98-107); Potassium 4.3 mmol/L (3.5-5.1)
[2024-05-09 06:08] LABS: Anion Gap 9 (5-15); Carbon Dioxide 21 mmol/L (20-31)
[2024-05-09 06:13] LABS: BUN/Creatinine Ratio 9.2 (10.0-20.0)
[2024-05-09 06:14] LABS: Blood Urea Nitrogen 6 mg/dL (9-23); Calcium 8.2 mg/dL (8.7-10.4); Glucose 197 mg/dL (74-106); Sodium 135 mmol/L (136-145)
--- NOTE | 2024-05-09 08:31 | DVHPN2 ---
Subjective The patient is seen and examined at bedside. Complain of shoulder pain, knee pain. No fever or chills overnight. Reviewed: Care Plan, H&P, Labs, Medications, Previous Orders Changes from previous H/P or p: No Changes General: Per HPI Eyes: No Pain, No Vision change, No Conjunctivae inflammation, No Eyelid inflammation, No Other, No Redness ENT: No Ear pain, No Ear discharge, No Nose pain, No Nose discharge, No Nose congestion, No Mouth pain, No Mouth swelling, No Throat pain, No Throat swelling, No Other Cardiovascular: No Chest Pain, No Palpitations, No Orthopnea, No Paroxysmal Noc. Dyspnea, No Edema, No Lt Headedness, No Other Respiratory: No Cough, No Dry, No Shortness of breath, No SOB with excertion, No Wheezing, No Hemoptysis, No Pleuritic Pain, No Sputum, No Other Gastrointestinal: No Nausea, No Vomiting, No Abdominal Pain, No Diarrhea, No Constipation, No Melena, No Hematochezia, No Other Genitourinary: No Dysuria, No Frequency, No Incontinence, No Hematuria, No Retention, No Other Musculoskeletal: No other, No neck pain, No shoulder pain, No arm pain, No back pain, No hand pain, No leg pain, No foot pain Skin: No Rash, No Lesions, No Jaundice, No Bruising, No Other Objective Vitals Vital Signs Date Time Temp Pulse Resp B/P (MAP) Pulse Ox O2 Delivery O2 Flow Rate FiO2 05/09/24 06:58 64 18 126/60 05/09/24 05:00 98.6 94 98.6 05/08/24 20:00 Room Air* 0 21 Intake/Output Intake and Output 05/09/24 07:00 Intake Total 1850 ml Output Total 2250 ml Balance -400 ml Intake Oral 1800 ml IV Total 50 ml Output Urine Total 2250 ml General Appearance: Alert, Oriented X3, Cooperative HEENT: Atraumatic, PERRLA Lungs: Clear to auscultation, Normal air movement Cardiovascular: Normal S1, Normal S2 Extremities: Other (Dressing to left lower extremity dry and intact.) Neuro: Sensation intact Skin: Dry, Intact Psych/Mental Status: Mental status NL, Mood NL Medications Current Medications Medications Dose Ordered Sig/Sunny Route Start Time Stop Time Status Last Admin Dose Admin Tamsulosin HCl 0.4 mg DAILY PO 04/25/24 10:00 05/08/24 09:07 0.4 MG Lorazepam 0.5 mg Q6HP PRN PO 04/24/24 22:15 05/08/24 23:56 0.5 MG Al Hydrox/Mg Hydrox/Simethicone 30 ml Q6HP PRN PO 04/24/24 22:15 Acetaminophen 650 mg Q6HP PRN PO 04/24/24 22:15 05/02/24 05:26 650 MG Ondansetron HCl 4 mg Q4HP PRN IV 04/24/24 22:15 Enoxaparin Sodium 30 mg DAILY SC 04/25/24 10:00 UNV Oxycodone/ Acetaminophen 2 tab Q6HP PRN PO 04/25/24 12:00 05/09/24 04:44 2 TAB Insulin Glargine 15 units HS SC 04/27/24 22:00 05/08/24 21:13 15 UNITS Cefazolin Sodium/ Dextrose 50 ml @ 50 mls/hr Q8H IV 04/29/24 00:00 05/08/24 23:49 50 MLS/HR Enoxaparin Sodium 40 mg DAILY SC 05/03/24 10:00 05/08/24 09:08 40 MG Ertapenem 1 gm/ Sodium Chloride 50 ml @ 100 mls/hr DAILY IV 05/03/24 10:00 05/08/24 10:22 100 MLS/HR Lidocaine HCl 15 ml ONCE PRN MT 05/04/24 08:15 Docusate Sodium 100 mg BID PO 05/04/24 22:00 05/06/24 21:16 100 MG Hydromorphone HCl 1 mg Q4HPRN PRN IV 05/06/24 14:15 05/09/24 06:58 1 MG Diphenoxylate HCl/ Atropine 2.5 mg Q12HP PRN PO 05/06/24 14:15 Laboratory Results Laboratory Tests 05/09/24 04:35 Chemistry Test 05/09/24 04:35 Calcium Level 8.2 mg/dL (8.7-10.4) L Urinalysis Test 04/24/24 17:25 Urine Color Light-yellow (Yellow) Urine Clarity Clear (Clear) Urine pH 5.5 (5.0-9.0) Urine Specific [place] 1.031 (1.001-1.035) Urine Protein 1+ (Negative) H Urine Ketones 1+ (Negative) H Urine Blood 1+ /uL (Negative) H Urine Nitrite Negative (Negative) Urine Bilirubin Negative (Negative) Urine Urobilinogen Normal mg/dL (Negative) Urine Leukocyte Esterase Trace /uL (Negative) Urine RBC 5 /hpf (0 - 3) Urine WBC 19 /hpf (0 - 3) Urine Squamous Epithelial Cells Few /hpf (<5) Urine Bacteria None seen /hpf (None Seen) Urine Glucose 4+ mg/dL (Normal) H Microbiology Microbiology Date/Time Source Procedure Growth Status 05/02/24 16:32 Blood Blood Culture - Final NO GROWTH AFTER 5 DAYS OF INCUBATION. Complete 05/01/24 10:10 Other Gram Stain - Final Complete 05/01/24 10:10 Other Anaerobic Culture - Final Complete 05/01/24 10:10 Aerobic Culture - Final Staphylococcus aureus Complete 04/28/24 11:00 Aspirate Gram Stain - Final Complete 04/28/24 11:00 Aspirate Anaerobic Culture - Final Complete 04/28/24 11:00 Aerobic Culture - Final Staphylococcus aureus Complete Labs and/or images reviewed: Labs reviewed by me Assessment/Plan Assessment/Plan -sepsis -septic arthritis -acute on chronic decompensated systolic heart failure -syncope with collapse -history of probable coronary artery disease with CABG -diabetes mellitus, uncontrolled -acute kidney injury, vasomotor nephropathy -chronic pain syndrome with chronic opiate use -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 Continuing with IV antibiotic. Appreciate Infectious Disease recommendation. Unable to transfer patient given all facilities thus far have declined. IR consultation pending for possible abscess drainage. Pending assessment by IR as well as transferred to higher level of care. According to social service notes, patient has been declined at all higher level of care facilities. cardiology consultation appreciated. Orthopedic surgery consultation. -PUD, DVT prophylaxis -Lomotil for diarrhea -continue regular insulin sliding scale and Lantus. Continuing with IV pain medication and Indian for pain control. Plan discussed with: Patient Date of Service: May 09, 2024 Billing Provider: FRANCA ENCINAS MD Common Visit Codes: [id number] INP/OBS CARE(HIGH) FRANCA ENCINAS MD May 09, 2024 08:31
--- NOTE | 2024-05-09 09:37 | ECG ---
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
--- NOTE | 2024-05-09 13:40 | DVHPN2 ---
Progress Note - Dictate Date Seen: May 09, 2024 Medical Necessity Reason Pt with a Central, PICC or Fol: No Subjective no new complaints. 04/29/2024 : extremity venous studies came back normal NO DVT vital signs Vital Sign Date Time Temp Pulse Resp B/P (MAP) Pulse Ox O2 Delivery O2 Flow Rate FiO2 05/09/24 11:32 62 18 116/50 05/09/24 09:15 98.3 91 98.3 05/08/24 20:00 Room Air* 0 21 Total Intake and Output 05/08/24 05/08/24 05/09/24 15:00 23:00 07:00 Intake Total 290 ml 600 ml 960 ml Output Total 600 ml 1000 ml 650 ml Balance -310 ml -400 ml 310 ml medications Current Medications Medications Dose Ordered Sig/Sunny Route Start Time Stop Time Status Last Admin Dose Admin Tamsulosin HCl 0.4 mg DAILY PO 04/25/24 10:00 05/09/24 11:35 0.4 MG Lorazepam 0.5 mg Q6HP PRN PO 04/24/24 22:15 05/08/24 23:56 0.5 MG Al Hydrox/Mg Hydrox/Simethicone 30 ml Q6HP PRN PO 04/24/24 22:15 Acetaminophen 650 mg Q6HP PRN PO 04/24/24 22:15 05/02/24 05:26 650 MG Ondansetron HCl 4 mg Q4HP PRN IV 04/24/24 22:15 Enoxaparin Sodium 30 mg DAILY SC 04/25/24 10:00 UNV Oxycodone/ Acetaminophen 2 tab Q6HP PRN PO 04/25/24 12:00 05/09/24 04:44 2 TAB Insulin Glargine 15 units HS SC 04/27/24 22:00 05/08/24 21:13 15 UNITS Cefazolin Sodium/ Dextrose 50 ml @ 50 mls/hr Q8H IV 04/29/24 00:00 05/09/24 08:41 50 MLS/HR Enoxaparin Sodium 40 mg DAILY SC 05/03/24 10:00 05/09/24 11:36 40 MG Ertapenem 1 gm/ Sodium Chloride 50 ml @ 100 mls/hr DAILY IV 05/03/24 10:00 05/09/24 10:23 100 MLS/HR Lidocaine HCl 15 ml ONCE PRN MT 05/04/24 08:15 Docusate Sodium 100 mg BID PO 05/04/24 22:00 05/06/24 21:16 100 MG Hydromorphone HCl 1 mg Q4HPRN PRN IV 05/06/24 14:15 05/09/24 11:32 1 MG Diphenoxylate HCl/ Atropine 2.5 mg Q12HP PRN PO 05/06/24 14:15 objective General alert and oriented HEENT: Atraumatic Neck: No swelling Lungs: Equal air entry and clear to auscultation Cardiovascular: S2 heard no murmur Abdomen: Soft nontender, no organomegaly, nondistended ext: bilateral shoulder effusion aguayo improved decreased ROM of upper ext b/l transmetatarsal amputation left knee brace + Neuro: Alert and oriented, no focal deficit Psych: Normal mood and affect laboratory and microbiology Laboratory Tests 05/09/24 04:35 Test 05/09/24 04:35 Range/Units Serum Glucose 197 H 74-106 mg/dL Assessment/Plan Patient is a 63year-old Male with MSSA bacteremia Sepsis septic arthritis of left knee 2/2 MSSA septic clavicular joint s/p i and D NECK PAIN upper back pain shoulder pain : both h/o meth abuse h/o alcohol abuse former smoker CHF s/p b/l feet transmetatarsal amputation PAD Recommendations RYAN no vegetation CT surgery: no intervention he reported that is outside his scope. Dr Adams did wash out shoulders/ again left knee ( he reported it was infected). b/l shoulder joint fluid cultures no growth s/p knee arthroscopy and wash out by ortho ( Dr Simpson) --Repeated two sets of blood cultures, last 04/23 which is positive and on 04/30 which is negative. --Continue dual therapy IV Cefazolin 2g q 8 hours and IV Ertapenem 1g daily for dual coverage. PICC line with IV cefazolin 2g q 8 hours for 6 weeks, with weekly labs cbc with diff, cmp and esr fax to [phone] he needs SNF placement due to drug abuse history Aerobic culture joint fluid, clavicular jt: 05/01, Staphylococcus aureus. both shoulder joint cultures are no growth blood cx from 05/02 shows no growth for 24 hours prognosis guarded thank you for opportunity for caring this patient. Discussed with provider. Dietary Evaluation Review Comments: 1) Refer pt to a RD/CDE upon DC 2) Continue current plan of care Expected Outcomes/Goals: 1) Pt to see a RD/CDE after DC 2) Pt labs to improve 3) F/U in 3-5 days Plan discussed with: Other HAIDER VAUGHN MD May 09, 2024 13:40
--- NOTE | 2024-05-09 14:49 | ECG ---
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
--- NOTE | 2024-05-09 15:18 | ECG ---
[facility] Test Date: 2024-04-25 Test Time: 12:48:01 Pat Name: GEORGIANA VILLAR Department: Room: 0294T A Gender: M Director Talent: ESTELA : 1960 Requested By: XOCHITL GRAY Order Number: [id number] Reading MD: Elsy Guillory Measurements Intervals [place] Rate: 76 P: 256 MD: 146 QRS: 21 QRSD: 143 T: 193 QT: 487 QTc: 548 Interpretive Statements Sinus or ectopic atrial rhythm Atrial premature complex Nonspecific intraventricular conduction delay Inferior infarct, old Abnormal lateral Q waves Baseline wander in lead(s) V2,V3 Electronically Signed On 05-10-2024 9:07:45 PST by Elsy Guillory Please click the below link to view image of tracing.
--- NOTE | 2024-05-09 15:18 | ECG ---
[facility] Test Date: 2024-04-25 Test Time: 12:48:52 Pat Name: GEORGIANA VILLAR Department: Room: 0294T A Gender: M Donor Services Coordinator: ESTELA : 1960 Requested By: XOCHITL GRAY Order Number: [id number] Reading MD: Elsy Guillory Measurements Intervals [place] Rate: 75 P: 267 MS: 142 QRS: 19 QRSD: 152 T: 224 QT: 498 QTc: 557 Interpretive Statements Sinus or ectopic atrial rhythm Nonspecific intraventricular conduction delay Inferior infarct, old Probable lateral infarct, age indeterminate Electronically Signed On 05-10-2024 9:07:45 PST by Elsy Guillory Please click the below link to view image of tracing.
[2024-05-10 05:00] VITALS: BP 135/51; PULSE 68; RESP 19; TEMP 97.5; O2SAT 94
[2024-05-10 07:10] LABS: Basophils # (auto) 0.1 10 ^3/uL (0-0.2); Basophils % (auto) 1.1 % (0.0-2.0); Eosinophils # (auto) 0.2 10 ^3/uL (0-0.8); Lymphocytes # (auto) 0.7 10 ^3/uL (0.4-5.4); Monocytes # (auto) 0.5 10 ^3/uL (0-1.3); Nucleated Red Blood Cells % 0.2 %
[2024-05-10 07:13] LABS: Eosinophils % (auto) 2.3 % (0.0-7.0); Hematocrit 26.7 % (41.0-53.0); Lymphocytes % (auto) 10.7 % (10.0-50.0); Mean Corpuscular Hemoglobin 26.1 pg (28.0-32.0); Mean Corpuscular Hgb Conc. 29.9 g/dL (32.0-36.0); Mean Corpuscular Volume 87.4 fL (80.0-100.0); Monocytes % (auto) 7.4 % (0.0-12.0); Neutrophils # (auto) 5.4 10 ^3/uL (1.6-8.6); Neutrophils % (auto) 78.5 % (37.0-80.0); Platelet Count (auto) 241 10^3/uL (140-450); Red Blood Cells 3.06 10^6/uL (4.5-5.90); White Blood Cell 6.8 10^3/uL (4.4-10.8)
[2024-05-10 07:26] LABS: Chloride 105 mmol/L (98-107); Potassium 4.1 mmol/L (3.5-5.1)
[2024-05-10 07:27] LABS: Anion Gap 8 (5-15); Carbon Dioxide 22 mmol/L (20-31)
[2024-05-10 07:32] LABS: BUN/Creatinine Ratio 8.5 (10.0-20.0)
[2024-05-10 07:37] LABS: Blood Urea Nitrogen 6 mg/dL (9-23); Calcium 8.2 mg/dL (8.7-10.4); Glucose 170 mg/dL (74-106); Sodium 135 mmol/L (136-145)
[2024-05-10 07:48] LABS: Red Cell Distribution Width 22.2 % (11.8-14.3)
[2024-05-10 08:00] VITALS: PULSE 61; RESP 18; O2SAT 98
[2024-05-10 09:32] LABS: Anisocytosis Slight
[2024-05-10 09:33] LABS: Platelet Estimate Adequate
--- NOTE | 2024-05-10 09:56 | DVHDS2 ---
Discharge Summary Date of Admission Apr 24, 2024 at 22:04 Date of Discharge: May 10, 2024 Admitting Diagnosis Syncope with collapse Labs/Diagnostic Data: Laboratory Results Test 05/10/24 06:15 05/09/24 20:27 05/06/24 09:32 04/28/24 15:10 White Blood Count 6.8 10^3/uL (4.4-10.8) Red Blood Count 3.06 10^6/uL (4.5-5.90) Hemoglobin 8.0 g/dL (13.5-17.5) Hematocrit 26.7 % (41.0-53.0) Mean Corpuscular Volume 87.4 fL (80.0-100.0) Mean Corpuscular Hemoglobin 26.1 pg (28.0-32.0) Mean Corpuscular Hemoglobin Concent 29.9 g/dL (32.0-36.0) Red Cell Distribution Width 22.2 % (11.8-14.3) Platelet Count 241 10^3/uL (140-450) Mean Platelet Volume 8.3 fL (6.9-10.8) Neutrophils (%) (Auto) 78.5 % (37.0-80.0) Lymphocytes (%) (Auto) 10.7 % (10.0-50.0) Monocytes (%) (Auto) 7.4 % (0.0-12.0) Eosinophils (%) (Auto) 2.3 % (0.0-7.0) Basophils (%) (Auto) 1.1 % (0.0-2.0) Neutrophils # (Auto) 5.4 10 ^3/uL (1.6-8.6) Lymphocytes # (Auto) 0.7 10 ^3/uL (0.4-5.4) Monocytes # (Auto) 0.5 10 ^3/uL (0-1.3) Eosinophils # (Auto) 0.2 10 ^3/uL (0-0.8) Basophils # (Auto) 0.1 10 ^3/uL (0-0.2) Nucleated Red Blood Cells 0.2 % Platelet Estimate Adequate Anisocytosis (manual) Slight Microcytosis Slight Sodium Level 135 mmol/L (136-145) Potassium Level 4.1 mmol/L (3.5-5.1) Chloride Level 105 mmol/L (98-107) Carbon Dioxide Level 22 mmol/L (20-31) Anion Gap 8 (5-15) Blood Urea Nitrogen 6 mg/dL (9-23) Creatinine 0.71 mg/dL (0.700-1.30) Glomerular Filtration Rate Calc 104 mL/min (>90) BUN/Creatinine Ratio 8.5 (10.0-20.0) Serum Glucose 170 mg/dL (74-106) Calcium Level 8.2 mg/dL (8.7-10.4) POC Glucose 238 mg/dl (70-106) Troponin I High Sensitivity 3 ng/L (</=54) Differential Total Cells Counted 100.0 (100) Neutrophils % (Manual) 95 (37.0-80.0) Band Neutrophils % (Manual) 2 Lymphocytes % (Manual) 1 (10.0-50.0) Monocytes % (Manual) 2 (0-12) Eosinophils % (Manual) 0 (0-7) Basophils % (Manual) 0 (0.0-2.0) Metamyelocytes % (manual) 0 Myelocytes % (Manual) 0 Promyelocytes % (Manual) 0 Blast Cells % (Manual) 0 Reactive Lymphocytes 0 Large Platelets Few Hypochromasia (manual) Slight Test 04/27/24 05:28 04/26/24 00:45 04/25/24 13:00 04/25/24 12:04 Phosphorus Level 2.6 mg/dL (2.4-5.1) Magnesium Level 2.3 mg/dL (1.6-2.6) Total Bilirubin 0.7 mg/dL (0.2-1.0) Aspartate Amino Transferase (AST) 55 U/L (13-40) Alanine Aminotransferase (ALT) 23 U/L (7-40) Alkaline Phosphatase 104 U/L (46-116) Total Protein 6.1 g/dL (5.7-8.2) Albumin 3.0 g/dL (3.2-4.8) Prothrombin Time 11.0 sec (9.3-11.8) Prothrombin Time INR 1.04 (0.9-1.15) Activated Partial Thromboplast Time 33.9 SEC (24.5-34.5) Lactic Acid Level 2.3 mmol/L (0.4-2.0) B-Type Natriuretic Peptide 119.63 pg/mL (0-100) Hemoglobin A1c 8.9 % A1C (<5.7) Urine Opiates Screen Pos (NEGATIVE) Urine Fentanyl Screen Neg (NEGATIVE) Urine Barbiturates Screen Neg (NEGATIVE) Urine Phencyclidine Screen Neg (NEGATIVE) Urine Amphetamines Screen Neg (NEGATIVE) Urine Benzodiazepines Screen Neg (NEGATIVE) Urine Cocaine Screen Neg (NEGATIVE) Urine Cannabinoids Screen Neg (NEGATIVE) Test 04/25/24 03:18 04/24/24 17:50 04/24/24 17:25 04/24/24 17:13 Erythrocyte Sedimentation Rate 92 mm/hr (0-20) Iron Level 9 ug/dL (65-175) Total Iron Binding Capacity 214 ug/dL (250-425) Percent Iron Saturation 4.2 % (20-55) Triglycerides Level 132 mg/dL (< 150) Cholesterol Level 75 mg/dL (< 200) LDL Cholesterol 31 mg/dL (< 100) HDL Cholesterol 12 mg/dL (40-59) Blood Gas Specimen Type Arterial Blood Gas Sample Site Right radial Blood Gas Patient Temperature 37.0 Arterial Blood Date Drawn [id number] Arterial Blood pH 7.418 (7.350-7.450) Arterial Blood Partial Pressure CO2 26.7 mmHg (35.0-48.0) Arterial Blood Partial Pressure O2 57.0 mmHg (83.0-108.0) Arterial Blood HCO3 16.9 mmol/L (21.0-28.0) Arterial Blood Oxygen Saturation 87.1 % (94.0-98.0) Arterial Blood Base Excess -6.4 mmol/L (-2.0-3.0) Arterial Blood Oxyhemoglobin 85.8 % (94.0-98.0) Arterial Blood Carboxyhemoglobin 1.3 % (0.5-1.5) Arterial Blood Methemoglobin 0.2 % (0.0-1.5) Mario Test Yes Blood Gas Total Hemoglobin 10.60 g/dL (13.5-17.5) Blood Gas Modality Room air FiO2 % 21.0 Urine Color Light-yellow (Yellow) Urine Clarity Clear (Clear) Urine pH 5.5 (5.0-9.0) Urine Specific [place] 1.031 (1.001-1.035) Urine Protein 1+ (Negative) Urine Ketones 1+ (Negative) Urine Blood 1+ /uL (Negative) Urine Nitrite Negative (Negative) Urine Bilirubin Negative (Negative) Urine Urobilinogen Normal mg/dL (Negative) Urine Leukocyte Esterase Trace /uL (Negative) Urine RBC 5 /hpf (0 - 3) Urine WBC 19 /hpf (0 - 3) Urine Squamous Epithelial Cells Few /hpf (<5) Urine Bacteria None seen /hpf (None Seen) Urine Glucose 4+ mg/dL (Normal) Beta-Hydroxybutyric Acid 1.778 mmol/L (< 0.4) Other Laboratory Tests 05/10/24 06:15 Brief Hx & Hospital Course: History of Present Illness 63 yo fell at home several days ago hurting his leg mostly around the knee with complaints of swelling and pain that showed to increase over time making it more and more difficult to ambulate on ed evaluation for trauma patient was also noted to have severely uncontrolled dm which also needed managment and patient was recommended for admission from the ed. Course of hospitalization: Patient was found to be bacteremic with Staphylococcus aureus growing in the blood. Patient was also found to had septic left knee arthritis as well as having joint effusions to both shoulders. Orthopedic surgery consultation has been placed for which the patient underwent left knee arthroscopy x2, as well as arthroscopic to both shoulders. Infectious Disease consultation has been placed. Patient was deescalated from Levaquin and vancomycin to Ancef 2 g q.[address] scan of the chest abdomen and pelvis which revealed questionable abscess to the sternal area around the 1st rib. Attempts were made to have this patient evaluated by CT surgery, which has been unsuccessful. Ultrasound was performed of the area, for which radiology feels this is phlegmon, nothing for drainage to be performed. The patient's white blood cell count has improved. Patient was blood sugars have also been controlled with regular insulin sliding scale as well as long-acting insulin with Lantus. Pain management has been a challenge given the patient's history of opiate abuse as well as alcoholism. Patient was also found to have deep pressure injury to left heel. Discussion was made with the patient regarding discharge planning. The patient will be transferred to a longterm facility for continuation of IV antibiotic therapy for the next three weeks as well as wound care. The patient was agreeable with discharge plan. All questions answered. Physical examination General: Alert and Oriented x3. No acute distress. Well-nourished. Eyes: EOMI. Anicteric. HENT: Moist mucous membranes. Lungs: Clear to auscultation bilaterally. No accessory muscle use. Cardiovascular: Regular rate and rhythm. No murmur. No JVD. Abdomen: Soft, non-tender and non-distended. No palpable masses. Extremities: No edema. Non-tender. Skin: No rashes or lesions. Warm. DTI to left heel Neurologic: No focal neurological deficits. CN II-XII grossly intact, but not individually tested. Psychiatric: Cooperative. Appropriate mood and affect. Total time spent with patient discussing and formulating plan of care: 35 minutes. This medical document was created using an electronic medical record system with [employer] dictation system. Although this document has been carefully reviewed, there may still be some phonetic and typographical errors. These areas are purely typographical due to imperfections of the software programs, and do not reflect any compromise in the patient's medical care. Consults/Reason for consult Orthopedic surgery: Septic arthritis Infectious disease: Sepsis secondary to Staphylococcus aureus Interventional Radiology: Assess for abscess drainage Operations or Procedures 04/28/2024: Left knee arthroplasty 05/01/2024: Bilateral shoulder arthroplasty Condition at Discharge: Good Final Diagnosis/Problems List Sepsis with Staph aureas Secondary Diagnosis: sepsis -septic arthritis -acute on chronic decompensated systolic heart failure -syncope with collapse -history of probable coronary artery disease with CABG -diabetes mellitus, uncontrolled -acute kidney injury, vasomotor nephropathy -chronic pain syndrome with chronic opiate use -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 Lisa as ordered Medications: See Med Rec form 36 Discharge Statement: "Patient was advised to return to the ER or call 911 if any headaches, dizziness, shortness of breath, chest pain, abdominal pain, bleeding, fevers, or worsening of medical condition. Patient was counseled about treatment plan, medications, possible side effects, patientverbalized understanding. All questions were answered to the best of my ability. This discharge took greater then 30 minutes in planning, reviewing documentation, counseling the patient, and discussing with other team members." ASSESSMENT ASSESSMENT Assessment Sepsis with Staph aureas Date of Service: May 10, 2024 Billing Provider: XOCHITL GRAY NP Common Visit Codes: 38006-OOU/OBS DISCH DAY >30min XOCHITL GRAY NP May 10, 2024 09:56
--- NOTE | 2024-05-10 12:10 | DVHPN2 ---
Progress Note - Dictate Date Seen: May 10, 2024 Medical Necessity Reason Pt with a Central, PICC or Fol: No Subjective still Complain of shoulder pain, knee pain. The patient had status post shoulder aspiration, I/D left shoulder. Patient refused dressing change, states he is in too much pain. Offered pain tablets, patient refused. States he will wait for the Dilaudid to be due. 04/29/2024 : extremity venous studies came back normal NO DVT vital signs Vital Sign Date Time Temp Pulse Resp B/P (MAP) Pulse Ox O2 Delivery O2 Flow Rate FiO2 05/10/24 08:56 62 18 136/63 05/10/24 08:00 98 Room Air* 0 21 05/10/24 05:00 97.5 97.5 Total Intake and Output 05/09/24 05/09/24 05/10/24 15:00 23:00 07:00 Intake Total 500 ml 700 ml Output Total 800 ml 500 ml Balance -300 ml 200 ml medications Current Medications Medications Dose Ordered Sig/Sunny Route Start Time Stop Time Status Last Admin Dose Admin Tamsulosin HCl 0.4 mg DAILY PO 04/25/24 10:00 05/10/24 08:54 0.4 MG Lorazepam 0.5 mg Q6HP PRN PO 04/24/24 22:15 05/10/24 10:56 0.5 MG Al Hydrox/Mg Hydrox/Simethicone 30 ml Q6HP PRN PO 04/24/24 22:15 Acetaminophen 650 mg Q6HP PRN PO 04/24/24 22:15 05/02/24 05:26 650 MG Ondansetron HCl 4 mg Q4HP PRN IV 04/24/24 22:15 Enoxaparin Sodium 30 mg DAILY SC 04/25/24 10:00 UNV Oxycodone/ Acetaminophen 2 tab Q6HP PRN PO 04/25/24 12:00 05/10/24 10:46 2 TAB Insulin Glargine 15 units HS SC 04/27/24 22:00 05/09/24 20:36 15 UNITS Cefazolin Sodium/ Dextrose 50 ml @ 50 mls/hr Q8H IV 04/29/24 00:00 05/10/24 08:56 50 MLS/HR Enoxaparin Sodium 40 mg DAILY SC 05/03/24 10:00 05/10/24 08:54 40 MG Ertapenem 1 gm/ Sodium Chloride 50 ml @ 100 mls/hr DAILY IV 05/03/24 10:00 05/10/24 10:51 100 MLS/HR Lidocaine HCl 15 ml ONCE PRN MT 05/04/24 08:15 Docusate Sodium 100 mg BID PO 05/04/24 22:00 05/06/24 21:16 100 MG Hydromorphone HCl 1 mg Q4HPRN PRN IV 05/06/24 14:15 05/10/24 08:56 1 MG Diphenoxylate HCl/ Atropine 2.5 mg Q12HP PRN PO 05/06/24 14:15 objective General alert and oriented HEENT: Atraumatic Neck: No swelling Lungs: Equal air entry and clear to auscultation Cardiovascular: S2 heard no murmur Abdomen: Soft nontender, no organomegaly, nondistended ext: bilateral shoulder effusion decreased ROM of upper ext b/l transmetatarsal amputation left knee brace + Neuro: Alert and oriented, no focal deficit Psych: Normal mood and affect laboratory and microbiology Laboratory Tests 05/10/24 06:15 Test 05/10/24 06:15 Range/Units Serum Glucose 170 H 74-106 mg/dL Assessment/Plan Patient is a 63year-old Male with MSSA bacteremia Sepsis septic arthritis of left knee 2/2 MSSA septic clavicular joint s/p i and D NECK PAIN upper back pain shoulder pain : both h/o meth abuse h/o alcohol abuse former smoker CHF s/p b/l feet transmetatarsal amputation PAD Recommendations RYAN no vegetation CT surgery: no intervention he reported that is outside his scope. Dr Adams did wash out shoulders/ again left knee ( he reported it was infected). b/l shoulder joint fluid cultures no growth s/p knee arthroscopy and wash out by ortho ( Dr Simpson) --Repeated two sets of blood cultures, last 04/23 which is positive and on 04/30 which is negative. --Continue dual therapy IV Cefazolin 2g q 8 hours and IV Ertapenem 1g daily for dual coverage. PICC line with IV cefazolin 2g q 8 hours for 6 weeks, with weekly labs cbc with diff, cmp and esr fax to [phone] he needs SNF placement due to drug abuse history Aerobic culture joint fluid, clavicular jt: 05/01, Staphylococcus aureus. both shoulder joint cultures are no growth blood cx from 05/02 shows no growth for 24 hours prognosis guarded thank you for opportunity for caring this patient. Discussed with provider. Dietary Evaluation Review Comments: 1) Refer pt to a RD/CDE upon DC 2) Continue current plan of care Expected Outcomes/Goals: 1) Pt to see a RD/CDE after DC 2) Pt labs to improve 3) F/U in 3-5 days Plan discussed with: Other HAIDER VAUGHN MD May 10, 2024 12:09
[2024-05-10 17:00] VITALS: BP 134/61; PULSE 63; RESP 16; TEMP 97.4; O2SAT 96
[2024-05-10 20:00] VITALS: PULSE 60; O2SAT 98
[2024-05-10 22:00] VITALS: BP 152/57; PULSE 73; RESP 22; TEMP 98.1; O2SAT 93
[2024-05-11] VITALS (8 sets, daily range): BP systolic 102–132; BP diastolic 51–72; PULSE 61–76; RESP 16–22; TEMP 97.3–99.6; O2SAT 91–97
--- NOTE | 2024-05-11 10:21 | DVHPN2 ---
Progress Note - Dictate Date Seen: May 11, 2024 Medical Necessity Reason Pt with a Central, PICC or Fol: No Subjective Patient was seen and evaluated at bedside. Patient received Dilaudid at scheduled time. Foot dressings changed. There was no drainage on the left or right heals at this time. Wound care was done as ordered. He refused for sacral cream to be applied. Patients bandages on his clavicles and upper chest were dry with no signs of drainage. vital signs Vital Sign Date Time Temp Pulse Resp B/P (MAP) Pulse Ox O2 Delivery O2 Flow Rate FiO2 05/11/24 08:57 98.0 62 16 118/60 (79) 92 98.0 05/11/24 08:00 Room Air* 0 21 Total Intake and Output 05/10/24 05/10/24 05/11/24 15:00 23:00 07:00 Intake Total 100 ml 450 ml 575 ml Output Total 1605 ml 700 ml Balance 100 ml -1155 ml -125 ml medications Current Medications Medications Dose Ordered Sig/Sunny Route Start Time Stop Time Status Last Admin Dose Admin Tamsulosin HCl 0.4 mg DAILY PO 04/25/24 10:00 05/10/24 08:54 0.4 MG Lorazepam 0.5 mg Q6HP PRN PO 04/24/24 22:15 05/10/24 23:43 0.5 MG Al Hydrox/Mg Hydrox/Simethicone 30 ml Q6HP PRN PO 04/24/24 22:15 Acetaminophen 650 mg Q6HP PRN PO 04/24/24 22:15 05/02/24 05:26 650 MG Ondansetron HCl 4 mg Q4HP PRN IV 04/24/24 22:15 Enoxaparin Sodium 30 mg DAILY SC 04/25/24 10:00 UNV Oxycodone/ Acetaminophen 2 tab Q6HP PRN PO 04/25/24 12:00 05/11/24 05:49 2 TAB Insulin Glargine 15 units HS SC 04/27/24 22:00 05/10/24 21:53 15 UNITS Cefazolin Sodium/ Dextrose 50 ml @ 50 mls/hr Q8H IV 04/29/24 00:00 05/10/24 23:33 50 MLS/HR Enoxaparin Sodium 40 mg DAILY SC 05/03/24 10:00 05/10/24 08:54 40 MG Ertapenem 1 gm/ Sodium Chloride 50 ml @ 100 mls/hr DAILY IV 05/03/24 10:00 05/10/24 10:51 100 MLS/HR Lidocaine HCl 15 ml ONCE PRN MT 05/04/24 08:15 Docusate Sodium 100 mg BID PO 05/04/24 22:00 05/06/24 21:16 100 MG Hydromorphone HCl 1 mg Q4HPRN PRN IV 05/06/24 14:15 05/11/24 03:34 1 MG Diphenoxylate HCl/ Atropine 2.5 mg Q12HP PRN PO 05/06/24 14:15 objective General alert and oriented HEENT: Atraumatic Neck: No swelling Lungs: Equal air entry and clear to auscultation Cardiovascular: S2 heard no murmur Abdomen: Soft nontender, no organomegaly, nondistended ext: bilateral shoulder effusion decreased ROM of upper ext b/l transmetatarsal amputation left knee brace + Neuro: Alert and oriented, no focal deficit Psych: Normal mood and affect laboratory and microbiology Laboratory Tests 05/10/24 06:15 Test 05/10/24 06:15 Range/Units Serum Glucose 170 H 74-106 mg/dL Assessment/Plan Patient is a 63year-old Male with MSSA bacteremia Sepsis septic arthritis of left knee 2/2 MSSA septic clavicular joint s/p i and D NECK PAIN upper back pain shoulder pain : both h/o meth abuse h/o alcohol abuse former smoker CHF s/p b/l feet transmetatarsal amputation PAD Recommendations RYAN no vegetation CT surgery: no intervention he reported that is outside his scope. HLOC is pending however he has been refused by multiple facility. vs IR? Dr Adams did wash out shoulders/ again left knee ( he reported it was infected). b/l shoulder joint fluid cultures no growth s/p knee arthroscopy and wash out by ortho ( Dr Simpson) --Repeated two sets of blood cultures, last 04/23 which is positive and on 04/30 and 05/02 are negative. --Continue dual therapy IV Cefazolin 2g q 8 hours and IV Ertapenem 1g daily for dual coverage. PICC line with IV cefazolin 2g q 8 hours for 6 weeks, with weekly labs cbc with diff, cmp and esr fax to [phone] he needs SNF placement due to drug abuse history Aerobic culture joint fluid, clavicular jt: 05/01, Staphylococcus aureus. both shoulder joint cultures are no growth prognosis guarded thank you for opportunity for caring this patient. Discussed with provider. Dietary Evaluation Review Comments: 1) Refer pt to a RD/CDE upon DC 2) Continue current plan of care Expected Outcomes/Goals: 1) Pt to see a RD/CDE after DC 2) Pt labs to improve 3) F/U in 3-5 days Plan discussed with: HAIDER Zapata MD May 11, 2024 10:21
--- NOTE | 2024-05-11 16:31 | DVHPN2 ---
Subjective Denies diarrhea. Reviewed: Care Plan, H&P, Labs, Medications, Previous Orders Changes from previous H/P or p: No Changes General: Per HPI Eyes: No Pain, No Vision change, No Conjunctivae inflammation, No Eyelid inflammation, No Other, No Redness ENT: No Ear pain, No Ear discharge, No Nose pain, No Nose discharge, No Nose congestion, No Mouth pain, No Mouth swelling, No Throat pain, No Throat swelling, No Other Cardiovascular: No Chest Pain, No Palpitations, No Orthopnea, No Paroxysmal Noc. Dyspnea, No Edema, No Lt Headedness, No Other Respiratory: No Cough, No Dry, No Shortness of breath, No SOB with excertion, No Wheezing, No Hemoptysis, No Pleuritic Pain, No Sputum, No Other Gastrointestinal: No Nausea, No Vomiting, No Abdominal Pain, No Diarrhea, No Constipation, No Melena, No Hematochezia, No Other Genitourinary: No Dysuria, No Frequency, No Incontinence, No Hematuria, No Retention, No Other Musculoskeletal: No other, No neck pain, No shoulder pain, No arm pain, No back pain, No hand pain, No leg pain, No foot pain Skin: No Rash, No Lesions, No Jaundice, No Bruising, No Other Objective Vitals Vital Signs Date Time Temp Pulse Resp B/P (MAP) Pulse Ox O2 Delivery O2 Flow Rate FiO2 05/11/24 15:25 61 18 114/51 05/11/24 13:00 97.5 94 97.5 05/11/24 08:00 Room Air* 0 21 Intake/Output Intake and Output 05/11/24 07:00 Intake Total 1125 ml Output Total 2305 ml Balance -1180 ml Intake Oral 925 ml IV Total 200 ml Output Urine Total 2305 ml General Appearance: Alert, Oriented X3, Cooperative HEENT: Atraumatic, PERRLA Lungs: Clear to auscultation, Normal air movement Cardiovascular: Normal S1, Normal S2 Extremities: Other (Dressing to left lower extremity dry and intact.) Neuro: Sensation intact Skin: Dry, Intact Psych/Mental Status: Mental status NL, Mood NL Medications Current Medications Medications Dose Ordered Sig/Sunny Route Start Time Stop Time Status Last Admin Dose Admin Tamsulosin HCl 0.4 mg DAILY PO 04/25/24 10:00 05/11/24 11:21 0.4 MG Lorazepam 0.5 mg Q6HP PRN PO 04/24/24 22:15 05/10/24 23:43 0.5 MG Al Hydrox/Mg Hydrox/Simethicone 30 ml Q6HP PRN PO 04/24/24 22:15 Acetaminophen 650 mg Q6HP PRN PO 04/24/24 22:15 05/02/24 05:26 650 MG Ondansetron HCl 4 mg Q4HP PRN IV 04/24/24 22:15 Enoxaparin Sodium 30 mg DAILY SC 04/25/24 10:00 UNV Oxycodone/ Acetaminophen 2 tab Q6HP PRN PO 04/25/24 12:00 05/11/24 05:49 2 TAB Cefazolin Sodium/ Dextrose 50 ml @ 50 mls/hr Q8H IV 04/29/24 00:00 05/11/24 11:23 50 MLS/HR Enoxaparin Sodium 40 mg DAILY SC 05/03/24 10:00 05/11/24 11:22 40 MG Ertapenem 1 gm/ Sodium Chloride 50 ml @ 100 mls/hr DAILY IV 05/03/24 10:00 05/11/24 11:24 100 MLS/HR Lidocaine HCl 15 ml ONCE PRN MT 05/04/24 08:15 Docusate Sodium 100 mg BID PO 05/04/24 22:00 05/06/24 21:16 100 MG Hydromorphone HCl 1 mg Q4HPRN PRN IV 05/06/24 14:15 05/11/24 15:25 1 MG Diphenoxylate HCl/ Atropine 2.5 mg Q12HP PRN PO 05/06/24 14:15 Insulin Glargine 22 units HS SC 05/11/24 22:00 Laboratory Results Laboratory Tests 05/10/24 06:15 Urinalysis Test 04/24/24 17:25 Urine Color Light-yellow (Yellow) Urine Clarity Clear (Clear) Urine pH 5.5 (5.0-9.0) Urine Specific [place] 1.031 (1.001-1.035) Urine Protein 1+ (Negative) H Urine Ketones 1+ (Negative) H Urine Blood 1+ /uL (Negative) H Urine Nitrite Negative (Negative) Urine Bilirubin Negative (Negative) Urine Urobilinogen Normal mg/dL (Negative) Urine Leukocyte Esterase Trace /uL (Negative) Urine RBC 5 /hpf (0 - 3) Urine WBC 19 /hpf (0 - 3) Urine Squamous Epithelial Cells Few /hpf (<5) Urine Bacteria None seen /hpf (None Seen) Urine Glucose 4+ mg/dL (Normal) H Microbiology Microbiology Date/Time Source Procedure Growth Status 05/02/24 16:32 Blood Blood Culture - Final NO GROWTH AFTER 5 DAYS OF INCUBATION. Complete 05/01/24 10:10 Other Gram Stain - Final Complete 05/01/24 10:10 Other Anaerobic Culture - Final Complete 05/01/24 10:10 Aerobic Culture - Final Staphylococcus aureus Complete 04/28/24 11:00 Aspirate Gram Stain - Final Complete 04/28/24 11:00 Aspirate Anaerobic Culture - Final Complete 04/28/24 11:00 Aerobic Culture - Final Staphylococcus aureus Complete Labs and/or images reviewed: Labs reviewed by me, Image(s) reviewed by me Assessment/Plan Assessment/Plan Impression: -sepsis -septic arthritis -acute on chronic decompensated systolic heart failure -syncope with collapse -history of probable coronary artery disease with CABG -diabetes mellitus, uncontrolled -acute kidney injury, vasomotor nephropathy -chronic pain syndrome with chronic opiate use -degenerative joint disease left shoulder and back -history of ETOH use -DTI to the left heel -left knee plateau fracture -multiple areas of septic embolus -bilateral pleural effusions Plan: -events no events overnight. Blood sugars are still elevated. -ID consultation: Recommendations reviewed -cardiology consultation : Recommendations reviewed -orthopedic surgery consultation -antibiotic therapy: Per Infectious Disease -PUD, DVT prophylaxis -Lomotil for diarrhea -continue regular insulin sliding scale increase Lantus. -repeat labs in a.m. -social service consultation for discharge planning. Total time spent with patient discussing and formulating plan of care: 35 minutes. This medical document was created using an electronic medical record system with [employer] dictation system. Although this document has been carefully reviewed, there may still be some phonetic and typographical errors. These areas are purely typographical due to imperfections of the software programs, and do not reflect any compromise in the patient's medical care. Plan discussed with: Patient, Other (RN) My Orders Orders - XOCHITL GRAY NP Procedure Category Date Status Time Insulin Lantus PHA 05/11/24 In Process (Glargine) (Lantus) 22:00 Date of Service: May 11, 2024 Billing Provider: XOCHITL GRAY NP Common Visit Codes: [id number] INP/OBS CARE(HIGH) XOCHITL GRAY NP May 11, 2024 16:31
[2024-05-11] MEDS: INSULIN LANTUS (GLARGINE) 1 /0.01ml (100units/ml) SC SCH (21:53)
[2024-05-11] MEDS ORDERED: INSULIN LANTUS (GLARGINE) 1 /0.01ml (100units/ml) SC SCH (22:00)
[2024-05-12] VITALS (7 sets, daily range): BP systolic 117–143; BP diastolic 49–57; PULSE 61–66; RESP 16–20; TEMP 98–98.3; O2SAT 93–99
--- NOTE | 2024-05-12 12:04 | DVHPN2 ---
Progress Note - Dictate Date Seen: May 12, 2024 Medical Necessity Reason Pt with a Central, PICC or Fol: No Subjective c/o left knee pain afebrile vital signs Vital Sign Date Time Temp Pulse Resp B/P (MAP) Pulse Ox O2 Delivery O2 Flow Rate FiO2 05/12/24 10:42 64 18 117/54 05/12/24 09:00 98.1 96 98.1 05/11/24 20:00 Room Air* 0 21 Total Intake and Output 05/11/24 05/11/24 05/12/24 14:59 22:59 06:59 Intake Total 100 ml 375 ml 1150 ml Output Total 1150 ml 1170 ml 300 ml Balance -1050 ml -795 ml 850 ml medications Current Medications Medications Dose Ordered Sig/Sunny Route Start Time Stop Time Status Last Admin Dose Admin Tamsulosin HCl 0.4 mg DAILY PO 04/25/24 10:00 05/12/24 10:40 0.4 MG Lorazepam 0.5 mg Q6HP PRN PO 04/24/24 22:15 05/10/24 23:43 0.5 MG Al Hydrox/Mg Hydrox/Simethicone 30 ml Q6HP PRN PO 04/24/24 22:15 Acetaminophen 650 mg Q6HP PRN PO 04/24/24 22:15 05/02/24 05:26 650 MG Ondansetron HCl 4 mg Q4HP PRN IV 04/24/24 22:15 Enoxaparin Sodium 30 mg DAILY SC 04/25/24 10:00 UNV Oxycodone/ Acetaminophen 2 tab Q6HP PRN PO 04/25/24 12:00 05/12/24 03:44 2 TAB Cefazolin Sodium/ Dextrose 50 ml @ 50 mls/hr Q8H IV 04/29/24 00:00 05/12/24 09:21 50 MLS/HR Enoxaparin Sodium 40 mg DAILY SC 05/03/24 10:00 05/12/24 10:40 40 MG Ertapenem 1 gm/ Sodium Chloride 50 ml @ 100 mls/hr DAILY IV 05/03/24 10:00 05/12/24 10:40 100 MLS/HR Lidocaine HCl 15 ml ONCE PRN MT 05/04/24 08:15 Docusate Sodium 100 mg BID PO 05/04/24 22:00 05/06/24 21:16 100 MG Hydromorphone HCl 1 mg Q4HPRN PRN IV 05/06/24 14:15 05/12/24 10:42 1 MG Diphenoxylate HCl/ Atropine 2.5 mg Q12HP PRN PO 05/06/24 14:15 Insulin Glargine 30 units HS SC 05/11/24 22:00 05/11/24 21:53 30 UNITS objective General alert and oriented HEENT: Atraumatic Neck: No swelling Lungs: Equal air entry and clear to auscultation Cardiovascular: S2 heard no murmur Abdomen: Soft nontender, no organomegaly, nondistended ext: bilateral shoulder effusion decreased ROM of upper ext b/l transmetatarsal amputation left knee brace + Neuro: Alert and oriented, no focal deficit Psych: Normal mood and affect laboratory and microbiology Laboratory Tests 05/10/24 06:15 Test 05/10/24 06:15 Range/Units Serum Glucose 170 H 74-106 mg/dL Assessment/Plan Patient is a 63year-old Male with MSSA bacteremia Sepsis septic arthritis of left knee 2/2 MSSA septic clavicular joint s/p i and D NECK PAIN upper back pain shoulder pain : both h/o meth abuse h/o alcohol abuse former smoker CHF s/p b/l feet transmetatarsal amputation PAD Recommendations RYAN no vegetation CT surgery: no intervention he reported that is outside his scope. Dr Adams did wash out shoulders/ again left knee ( he reported it was infected). b/l shoulder joint fluid cultures no growth s/p knee arthroscopy and wash out by ortho ( Dr Simpson) --Repeated two sets of blood cultures, last 04/23 which is positive and on 04/30 and 05/02 are negative. --Continue IV Cefazolin 2g q 8 hours and will dc IV Ertapenem 1g daily PICC line with IV cefazolin 2g q 8 hours for 6 weeks, with weekly labs cbc with diff, cmp and esr fax to [phone] he needs SNF placement due to drug abuse history waiting for [facility] approval Aerobic culture joint fluid, clavicular jt: 05/01, Staphylococcus aureus. both shoulder joint cultures are no growth prognosis guarded thank you for opportunity for caring this patient. Discussed with provider. Dietary Evaluation Review Comments: 1) Refer pt to a RD/CDE upon DC 2) Continue current plan of care Expected Outcomes/Goals: 1) Pt to see a RD/CDE after DC 2) Pt labs to improve 3) F/U in 3-5 days Plan discussed with: Patient, Other HAIDER VAUGHN MD May 12, 2024 12:04
--- NOTE | 2024-05-12 15:54 | DVHPN2 ---
Subjective Denies diarrhea. Reviewed: Care Plan, H&P, Labs, Medications, Previous Orders Changes from previous H/P or p: No Changes General: Per HPI Eyes: No Pain, No Vision change, No Conjunctivae inflammation, No Eyelid inflammation, No Other, No Redness ENT: No Ear pain, No Ear discharge, No Nose pain, No Nose discharge, No Nose congestion, No Mouth pain, No Mouth swelling, No Throat pain, No Throat swelling, No Other Cardiovascular: No Chest Pain, No Palpitations, No Orthopnea, No Paroxysmal Noc. Dyspnea, No Edema, No Lt Headedness, No Other Respiratory: No Cough, No Dry, No Shortness of breath, No SOB with excertion, No Wheezing, No Hemoptysis, No Pleuritic Pain, No Sputum, No Other Gastrointestinal: No Nausea, No Vomiting, No Abdominal Pain, No Diarrhea, No Constipation, No Melena, No Hematochezia, No Other Genitourinary: No Dysuria, No Frequency, No Incontinence, No Hematuria, No Retention, No Other Musculoskeletal: No other, No neck pain, No shoulder pain, No arm pain, No back pain, No hand pain, No leg pain, No foot pain Skin: No Rash, No Lesions, No Jaundice, No Bruising, No Other Objective Vitals Vital Signs Date Time Temp Pulse Resp B/P (MAP) Pulse Ox O2 Delivery O2 Flow Rate FiO2 05/12/24 15:09 66 16 120/56 05/12/24 13:00 98.0 96 98.0 05/12/24 08:00 Room Air* 0 21 Intake/Output Intake and Output 05/12/24 07:00 Intake Total 1625 ml Output Total 2620 ml Balance -995 ml Intake Oral 1425 ml IV Total 200 ml Output Urine Total 2620 ml General Appearance: Alert, Oriented X3, Cooperative HEENT: Atraumatic, PERRLA Lungs: Clear to auscultation, Normal air movement Cardiovascular: Normal S1, Normal S2 Extremities: Other (Dressing to left lower extremity dry and intact.) Neuro: Sensation intact Skin: Dry, Intact Psych/Mental Status: Mental status NL, Mood NL Medications Current Medications Medications Dose Ordered Sig/Sunny Route Start Time Stop Time Status Last Admin Dose Admin Tamsulosin HCl 0.4 mg DAILY PO 04/25/24 10:00 05/12/24 10:40 0.4 MG Lorazepam 0.5 mg Q6HP PRN PO 04/24/24 22:15 05/10/24 23:43 0.5 MG Al Hydrox/Mg Hydrox/Simethicone 30 ml Q6HP PRN PO 04/24/24 22:15 Acetaminophen 650 mg Q6HP PRN PO 04/24/24 22:15 05/02/24 05:26 650 MG Ondansetron HCl 4 mg Q4HP PRN IV 04/24/24 22:15 Enoxaparin Sodium 30 mg DAILY SC 04/25/24 10:00 UNV Oxycodone/ Acetaminophen 2 tab Q6HP PRN PO 04/25/24 12:00 05/12/24 13:04 2 TAB Cefazolin Sodium/ Dextrose 50 ml @ 50 mls/hr Q8H IV 04/29/24 00:00 05/12/24 14:52 50 MLS/HR Enoxaparin Sodium 40 mg DAILY SC 05/03/24 10:00 05/12/24 10:40 40 MG Ertapenem 1 gm/ Sodium Chloride 50 ml @ 100 mls/hr DAILY IV 05/03/24 10:00 05/12/24 10:40 100 MLS/HR Lidocaine HCl 15 ml ONCE PRN MT 05/04/24 08:15 Docusate Sodium 100 mg BID PO 05/04/24 22:00 05/06/24 21:16 100 MG Hydromorphone HCl 1 mg Q4HPRN PRN IV 05/06/24 14:15 05/12/24 15:09 1 MG Diphenoxylate HCl/ Atropine 2.5 mg Q12HP PRN PO 05/06/24 14:15 Insulin Glargine 30 units HS SC 05/11/24 22:00 05/11/24 21:53 30 UNITS Laboratory Results Laboratory Tests 05/10/24 06:15 Urinalysis Test 04/24/24 17:25 Urine Color Light-yellow (Yellow) Urine Clarity Clear (Clear) Urine pH 5.5 (5.0-9.0) Urine Specific [place] 1.031 (1.001-1.035) Urine Protein 1+ (Negative) H Urine Ketones 1+ (Negative) H Urine Blood 1+ /uL (Negative) H Urine Nitrite Negative (Negative) Urine Bilirubin Negative (Negative) Urine Urobilinogen Normal mg/dL (Negative) Urine Leukocyte Esterase Trace /uL (Negative) Urine RBC 5 /hpf (0 - 3) Urine WBC 19 /hpf (0 - 3) Urine Squamous Epithelial Cells Few /hpf (<5) Urine Bacteria None seen /hpf (None Seen) Urine Glucose 4+ mg/dL (Normal) H Microbiology Microbiology Date/Time Source Procedure Growth Status 05/02/24 16:32 Blood Blood Culture - Final NO GROWTH AFTER 5 DAYS OF INCUBATION. Complete 05/01/24 10:10 Other Gram Stain - Final Complete 05/01/24 10:10 Other Anaerobic Culture - Final Complete 05/01/24 10:10 Aerobic Culture - Final Staphylococcus aureus Complete 04/28/24 11:00 Aspirate Gram Stain - Final Complete 04/28/24 11:00 Aspirate Anaerobic Culture - Final Complete 04/28/24 11:00 Aerobic Culture - Final Staphylococcus aureus Complete Labs and/or images reviewed: Labs reviewed by me, Image(s) reviewed by me Assessment/Plan Assessment/Plan Impression: -sepsis -septic arthritis -acute on chronic decompensated systolic heart failure -syncope with collapse -history of probable coronary artery disease with CABG -diabetes mellitus, uncontrolled -acute kidney injury, vasomotor nephropathy -chronic pain syndrome with chronic opiate use -degenerative joint disease left shoulder and back -history of ETOH use -DTI to the left heel -left knee plateau fracture -multiple areas of septic embolus -bilateral pleural effusions Plan: -no events overnight. Still awaiting for [facility] to discuss with the patient about re-enrolling patient in insurance so he can be discharged with the appropriate care. -ID consultation: Recommendations reviewed -cardiology consultation : Recommendations reviewed -orthopedic surgery consultation -antibiotic therapy: Per Infectious Disease -PUD, DVT prophylaxis -Lomotil for diarrhea -continue regular insulin sliding scale increase Lantus. -repeat labs in a.m. -social service consultation for discharge planning. Total time spent with patient discussing and formulating plan of care: 35 minutes. This medical document was created using an electronic medical record system with [employer] system. Although this document has been carefully reviewed, there may still be some phonetic and typographical errors. These areas are purely typographical due to imperfections of the software programs, and do not reflect any compromise in the patient's medical care. Plan discussed with: Patient, Other (RN) My Orders Orders - XOCHITL GRAY NP Procedure Category Date Status Time Insulin Lantus PHA 05/11/24 In Process (Glargine) (Lantus) 22:00 Tramadol Hcl (Ultram) PHA 05/12/24 Verified 16:00 Date of Service: May 12, 2024 Billing Provider: XOCHITL GRAY NP Common Visit Codes: [id number] INP/OBS CARE(HIGH) XOCHITL GRAY NP May 12, 2024 15:54
[2024-05-12] MEDS: traMADol HCL 50 MG TAB PO PRN (17:23)
[2024-05-13] VITALS (7 sets, daily range): BP systolic 117–148; BP diastolic 34–62; PULSE 57–68; RESP 16–18; TEMP 97.9–98.5; O2SAT 93–96
--- NOTE | 2024-05-13 11:56 | DVHPN2 ---
Progress Note - Dictate Date Seen: May 13, 2024 Medical Necessity Reason Pt with a Central, PICC or Fol: No Subjective Patient was seen and evaluated at bedside. Foot dressings changed. There was no drainage on the left or right heals at this time. Wound care was done as ordered. 04/29/2024 : extremity venous studies came back normal NO DVT vital signs Vital Sign Date Time Temp Pulse Resp B/P (MAP) Pulse Ox O2 Delivery O2 Flow Rate FiO2 05/13/24 11:27 77 16 135/49 05/13/24 09:00 98.0 95 98.0 05/12/24 20:00 Room Air* 0 21 Total Intake and Output 05/12/24 05/12/24 05/13/24 15:00 23:00 07:00 Intake Total 100 ml 650 ml 800 ml Output Total 250 ml 650 ml 1500 ml Balance -150 ml 0 ml -700 ml medications Current Medications Medications Dose Ordered Sig/Sunny Route Start Time Stop Time Status Last Admin Dose Admin Tamsulosin HCl 0.4 mg DAILY PO 04/25/24 10:00 05/13/24 11:23 0.4 MG Lorazepam 0.5 mg Q6HP PRN PO 04/24/24 22:15 05/10/24 23:43 0.5 MG Al Hydrox/Mg Hydrox/Simethicone 30 ml Q6HP PRN PO 04/24/24 22:15 Acetaminophen 650 mg Q6HP PRN PO 04/24/24 22:15 05/02/24 05:26 650 MG Ondansetron HCl 4 mg Q4HP PRN IV 04/24/24 22:15 Enoxaparin Sodium 30 mg DAILY SC 04/25/24 10:00 UNV Cefazolin Sodium/ Dextrose 50 ml @ 50 mls/hr Q8H IV 04/29/24 00:00 05/13/24 11:25 50 MLS/HR Enoxaparin Sodium 40 mg DAILY SC 05/03/24 10:00 05/13/24 11:25 40 MG Ertapenem 1 gm/ Sodium Chloride 50 ml @ 100 mls/hr DAILY IV 05/03/24 10:00 05/12/24 10:40 100 MLS/HR Lidocaine HCl 15 ml ONCE PRN MT 05/04/24 08:15 Docusate Sodium 100 mg BID PO 05/04/24 22:00 05/13/24 11:23 100 MG Hydromorphone HCl 1 mg Q4HPRN PRN IV 05/06/24 14:15 05/13/24 11:27 1 MG Diphenoxylate HCl/ Atropine 2.5 mg Q12HP PRN PO 05/06/24 14:15 Insulin Glargine 30 units HS SC 05/11/24 22:00 05/12/24 21:46 30 UNITS Tramadol HCl 100 mg Q6HPRN PRN PO 05/12/24 16:00 05/13/24 03:41 100 MG objective General alert and oriented HEENT: Atraumatic Neck: No swelling Lungs: Equal air entry and clear to auscultation Cardiovascular: S2 heard no murmur Abdomen: Soft nontender, no organomegaly, nondistended ext: bilateral shoulder effusion decreased ROM of upper ext b/l transmetatarsal amputation left knee brace + Neuro: Alert and oriented, no focal deficit Psych: Normal mood and affect laboratory and microbiology Laboratory Tests 05/10/24 06:15 Test 05/10/24 06:15 Range/Units Serum Glucose 170 H 74-106 mg/dL Assessment/Plan Patient is a 63year-old Male with MSSA bacteremia Sepsis septic arthritis of left knee 2/2 MSSA septic clavicular joint s/p i and D NECK PAIN upper back pain shoulder pain : both h/o meth abuse h/o alcohol abuse former smoker CHF s/p b/l feet transmetatarsal amputation PAD Recommendations RYAN no vegetation CT surgery: no intervention he reported that is outside his scope. Dr Adams did wash out shoulders/ again left knee ( he reported it was infected). b/l shoulder joint fluid cultures no growth s/p knee arthroscopy and wash out by ortho ( Dr Simpson) --Repeated two sets of blood cultures, last 04/23 which is positive and on 04/30 and 05/02 are negative. --Continue IV Cefazolin 2g q 8 hours and dc IV Ertapenem 1g daily PICC line with IV cefazolin 2g q 8 hours for 6 weeks, with weekly labs cbc with diff, cmp and esr fax to [phone] he needs SNF placement due to drug abuse history awaiting for [facility] direct Aerobic culture joint fluid, clavicular jt: 11/23, Staphylococcus aureus. both shoulder joint cultures are no growth prognosis guarded thank you for opportunity for caring this patient. Discussed with provider. Dietary Evaluation Review Comments: 1) Refer pt to a RD/CDE upon DC 2) Continue current plan of care Expected Outcomes/Goals: 1) Pt to see a RD/CDE after DC 2) Pt labs to improve 3) F/U in 3-5 days Plan discussed with: Other HAIDER VAUGHN MD May 13, 2024 11:56
--- NOTE | 2024-05-13 13:04 | DVHPN2 ---
Subjective Denies any symptoms Reviewed: Care Plan, H&P, Labs, Medications, Previous Orders Changes from previous H/P or p: No Changes General: Per HPI Eyes: No Pain, No Vision change, No Conjunctivae inflammation, No Eyelid inflammation, No Other, No Redness ENT: No Ear pain, No Ear discharge, No Nose pain, No Nose discharge, No Nose congestion, No Mouth pain, No Mouth swelling, No Throat pain, No Throat swelling, No Other Cardiovascular: No Chest Pain, No Palpitations, No Orthopnea, No Paroxysmal Noc. Dyspnea, No Edema, No Lt Headedness, No Other Respiratory: No Cough, No Dry, No Shortness of breath, No SOB with excertion, No Wheezing, No Hemoptysis, No Pleuritic Pain, No Sputum, No Other Gastrointestinal: No Nausea, No Vomiting, No Abdominal Pain, No Diarrhea, No Constipation, No Melena, No Hematochezia, No Other Genitourinary: No Dysuria, No Frequency, No Incontinence, No Hematuria, No Retention, No Other Musculoskeletal: No other, No neck pain, No shoulder pain, No arm pain, No back pain, No hand pain, No leg pain, No foot pain Skin: No Rash, No Lesions, No Jaundice, No Bruising, No Other Objective Vitals Vital Signs Date Time Temp Pulse Resp B/P (MAP) Pulse Ox O2 Delivery O2 Flow Rate FiO2 05/13/24 11:27 77 16 135/49 05/13/24 09:00 98.0 95 98.0 05/12/24 20:00 Room Air* 0 21 Intake/Output Intake and Output 05/13/24 07:00 Intake Total 1550 ml Output Total 2400 ml Balance -850 ml Intake Oral 1350 ml IV Total 200 ml Output Urine Total 2400 ml General Appearance: Alert, Oriented X3, Cooperative HEENT: Atraumatic, PERRLA Lungs: Clear to auscultation, Normal air movement Cardiovascular: Normal S1, Normal S2 Extremities: Other (Dressing to left lower extremity dry and intact.) Neuro: Sensation intact Skin: Dry, Intact Psych/Mental Status: Mental status NL, Mood NL Medications Current Medications Medications Dose Ordered Sig/Sunny Route Start Time Stop Time Status Last Admin Dose Admin Tamsulosin HCl 0.4 mg DAILY PO 04/25/24 10:00 05/13/24 11:23 0.4 MG Lorazepam 0.5 mg Q6HP PRN PO 04/24/24 22:15 05/10/24 23:43 0.5 MG Al Hydrox/Mg Hydrox/Simethicone 30 ml Q6HP PRN PO 04/24/24 22:15 Acetaminophen 650 mg Q6HP PRN PO 04/24/24 22:15 05/02/24 05:26 650 MG Ondansetron HCl 4 mg Q4HP PRN IV 04/24/24 22:15 Enoxaparin Sodium 30 mg DAILY SC 04/25/24 10:00 UNV Cefazolin Sodium/ Dextrose 50 ml @ 50 mls/hr Q8H IV 04/29/24 00:00 05/13/24 11:25 50 MLS/HR Enoxaparin Sodium 40 mg DAILY SC 05/03/24 10:00 05/13/24 11:25 40 MG Ertapenem 1 gm/ Sodium Chloride 50 ml @ 100 mls/hr DAILY IV 05/03/24 10:00 05/12/24 10:40 100 MLS/HR Lidocaine HCl 15 ml ONCE PRN MT 05/04/24 08:15 Docusate Sodium 100 mg BID PO 05/04/24 22:00 05/13/24 11:23 100 MG Hydromorphone HCl 1 mg Q4HPRN PRN IV 05/06/24 14:15 05/13/24 11:27 1 MG Diphenoxylate HCl/ Atropine 2.5 mg Q12HP PRN PO 05/06/24 14:15 Insulin Glargine 30 units HS SC 05/11/24 22:00 05/12/24 21:46 30 UNITS Tramadol HCl 100 mg Q6HPRN PRN PO 05/12/24 16:00 05/13/24 03:41 100 MG Laboratory Results Laboratory Tests 05/10/24 06:15 Urinalysis Test 04/24/24 17:25 Urine Color Light-yellow (Yellow) Urine Clarity Clear (Clear) Urine pH 5.5 (5.0-9.0) Urine Specific [place] 1.031 (1.001-1.035) Urine Protein 1+ (Negative) H Urine Ketones 1+ (Negative) H Urine Blood 1+ /uL (Negative) H Urine Nitrite Negative (Negative) Urine Bilirubin Negative (Negative) Urine Urobilinogen Normal mg/dL (Negative) Urine Leukocyte Esterase Trace /uL (Negative) Urine RBC 5 /hpf (0 - 3) Urine WBC 19 /hpf (0 - 3) Urine Squamous Epithelial Cells Few /hpf (<5) Urine Bacteria None seen /hpf (None Seen) Urine Glucose 4+ mg/dL (Normal) H Microbiology Microbiology Date/Time Source Procedure Growth Status 05/02/24 16:32 Blood Blood Culture - Final NO GROWTH AFTER 5 DAYS OF INCUBATION. Complete 05/01/24 10:10 Other Gram Stain - Final Complete 05/01/24 10:10 Other Anaerobic Culture - Final Complete 05/01/24 10:10 Aerobic Culture - Final Staphylococcus aureus Complete 04/28/24 11:00 Aspirate Gram Stain - Final Complete 04/28/24 11:00 Aspirate Anaerobic Culture - Final Complete 04/28/24 11:00 Aerobic Culture - Final Staphylococcus aureus Complete Labs and/or images reviewed: Labs reviewed by me, Image(s) reviewed by me Assessment/Plan Assessment/Plan Impression: -sepsis -septic arthritis -acute on chronic decompensated systolic heart failure -syncope with collapse -history of probable coronary artery disease with CABG -diabetes mellitus, uncontrolled -acute kidney injury, vasomotor nephropathy -chronic pain syndrome with chronic opiate use -degenerative joint disease left shoulder and back -history of ETOH use -DTI to the left heel -left knee plateau fracture -multiple areas of septic embolus -bilateral pleural effusions Plan: -no events overnight. Patient was still awaiting for insurance to re-enroll patient for outpatient services. -ID consultation: Recommendations reviewed -cardiology consultation : Recommendations reviewed -orthopedic surgery consultation -antibiotic therapy: Per Infectious Disease -PUD, DVT prophylaxis -Lomotil for diarrhea -continue regular insulin sliding scale increase Lantus. -repeat labs in a.m. -social service consultation for discharge planning. Total time spent with patient discussing and formulating plan of care: 35 minutes. This medical document was created using an electronic medical record system with [employer] system. Although this document has been carefully reviewed, there may still be some phonetic and typographical errors. These areas are purely typographical due to imperfections of the software programs, and do not reflect any compromise in the patient's medical care. Plan discussed with: Patient, Other (RN) My Orders Orders - XOCHITL GRAY NP Procedure Category Date Status Time Tramadol Hcl (Ultram) PHA 05/12/24 In Process 16:00 Transfer Orders XFER 05/12/24 Transmitted 15:52 Date of Service: May 13, 2024 Billing Provider: XOCHITL GRAY NP Common Visit Codes: [id number] INP/OBS CARE(HIGH) XOCHITL GRAY NP May 13, 2024 13:04
[2024-05-14 01:00] VITALS: BP 134/68; PULSE 65; RESP 18; TEMP 98.2; O2SAT 95
[2024-05-14 05:00] VITALS: BP 132/90; PULSE 64; RESP 18; TEMP 98.3; O2SAT 94
[2024-05-14 09:00] VITALS: BP 126/42; PULSE 63; RESP 17; TEMP 98.7; O2SAT 92
[2024-05-14 13:00] VITALS: BP 138/40; PULSE 67; RESP 17; TEMP 98.1; O2SAT 95
--- NOTE | 2024-05-14 13:47 | DVHPN2 ---
Subjective Denies any symptoms Reviewed: Care Plan, H&P, Labs, Medications, Previous Orders Changes from previous H/P or p: No Changes General: Per HPI Eyes: No Pain, No Vision change, No Conjunctivae inflammation, No Eyelid inflammation, No Other, No Redness ENT: No Ear pain, No Ear discharge, No Nose pain, No Nose discharge, No Nose congestion, No Mouth pain, No Mouth swelling, No Throat pain, No Throat swelling, No Other Cardiovascular: No Chest Pain, No Palpitations, No Orthopnea, No Paroxysmal Noc. Dyspnea, No Edema, No Lt Headedness, No Other Respiratory: No Cough, No Dry, No Shortness of breath, No SOB with excertion, No Wheezing, No Hemoptysis, No Pleuritic Pain, No Sputum, No Other Gastrointestinal: No Nausea, No Vomiting, No Abdominal Pain, No Diarrhea, No Constipation, No Melena, No Hematochezia, No Other Genitourinary: No Dysuria, No Frequency, No Incontinence, No Hematuria, No Retention, No Other Musculoskeletal: No other, No neck pain, No shoulder pain, No arm pain, No back pain, No hand pain, No leg pain, No foot pain Skin: No Rash, No Lesions, No Jaundice, No Bruising, No Other Objective Vitals Vital Signs Date Time Temp Pulse Resp B/P (MAP) Pulse Ox O2 Delivery O2 Flow Rate FiO2 05/14/24 11:27 63 17 126/42 05/14/24 09:00 98.7 92 98.7 05/13/24 19:52 Room Air* 0 21 Intake/Output Intake and Output 05/14/24 07:00 Intake Total 618 ml Output Total 1200 ml Balance -582 ml Intake Oral 568 ml IV Total 50 ml Output Urine Total 1200 ml # Bowel Movements 1 General Appearance: Alert, Oriented X3, Cooperative HEENT: Atraumatic, PERRLA Lungs: Clear to auscultation, Normal air movement Cardiovascular: Normal S1, Normal S2 Extremities: Other (Dressing to left lower extremity dry and intact.) Neuro: Sensation intact Skin: Dry, Intact Psych/Mental Status: Mental status NL, Mood NL Medications Current Medications Medications Dose Ordered Sig/Sunny Route Start Time Stop Time Status Last Admin Dose Admin Tamsulosin HCl 0.4 mg DAILY PO 04/25/24 10:00 05/14/24 11:20 0.4 MG Lorazepam 0.5 mg Q6HP PRN PO 04/24/24 22:15 05/10/24 23:43 0.5 MG Al Hydrox/Mg Hydrox/Simethicone 30 ml Q6HP PRN PO 04/24/24 22:15 Acetaminophen 650 mg Q6HP PRN PO 04/24/24 22:15 05/02/24 05:26 650 MG Ondansetron HCl 4 mg Q4HP PRN IV 04/24/24 22:15 Enoxaparin Sodium 30 mg DAILY SC 04/25/24 10:00 UNV Cefazolin Sodium/ Dextrose 50 ml @ 50 mls/hr Q8H IV 04/29/24 00:00 05/14/24 11:19 50 MLS/HR Ertapenem 1 gm/ Sodium Chloride 50 ml @ 100 mls/hr DAILY IV 05/03/24 10:00 05/14/24 11:19 100 MLS/HR Lidocaine HCl 15 ml ONCE PRN MT 05/04/24 08:15 Docusate Sodium 100 mg BID PO 05/04/24 22:00 05/13/24 11:23 100 MG Hydromorphone HCl 1 mg Q4HPRN PRN IV 05/06/24 14:15 05/14/24 11:27 1 MG Diphenoxylate HCl/ Atropine 2.5 mg Q12HP PRN PO 05/06/24 14:15 Insulin Glargine 30 units HS SC 05/11/24 22:00 05/13/24 22:01 30 UNITS Tramadol HCl 100 mg Q6HPRN PRN PO 05/12/24 16:00 05/13/24 03:41 100 MG Laboratory Results Laboratory Tests 05/10/24 06:15 Urinalysis Test 04/24/24 17:25 Urine Color Light-yellow (Yellow) Urine Clarity Clear (Clear) Urine pH 5.5 (5.0-9.0) Urine Specific [place] 1.031 (1.001-1.035) Urine Protein 1+ (Negative) H Urine Ketones 1+ (Negative) H Urine Blood 1+ /uL (Negative) H Urine Nitrite Negative (Negative) Urine Bilirubin Negative (Negative) Urine Urobilinogen Normal mg/dL (Negative) Urine Leukocyte Esterase Trace /uL (Negative) Urine RBC 5 /hpf (0 - 3) Urine WBC 19 /hpf (0 - 3) Urine Squamous Epithelial Cells Few /hpf (<5) Urine Bacteria None seen /hpf (None Seen) Urine Glucose 4+ mg/dL (Normal) H Microbiology Microbiology Date/Time Source Procedure Growth Status 05/02/24 16:32 Blood Blood Culture - Final NO GROWTH AFTER 5 DAYS OF INCUBATION. Complete 05/01/24 10:10 Other Gram Stain - Final Complete 05/01/24 10:10 Other Anaerobic Culture - Final Complete 05/01/24 10:10 Aerobic Culture - Final Staphylococcus aureus Complete 04/28/24 11:00 Aspirate Gram Stain - Final Complete 04/28/24 11:00 Aspirate Anaerobic Culture - Final Complete 04/28/24 11:00 Aerobic Culture - Final Staphylococcus aureus Complete Labs and/or images reviewed: Labs reviewed by me, Image(s) reviewed by me Assessment/Plan Assessment/Plan Impression: -sepsis -septic arthritis -acute on chronic decompensated systolic heart failure -syncope with collapse -history of probable coronary artery disease with CABG -diabetes mellitus, uncontrolled -acute kidney injury, vasomotor nephropathy -chronic pain syndrome with chronic opiate use -degenerative joint disease left shoulder and back -history of ETOH use -DTI to the left heel -left knee plateau fracture -multiple areas of septic embolus -bilateral pleural effusions Plan: -no events overnight. Apparently, patient will be re-enrolled in [facility] after meeting was performed this a.m. next week. -ID consultation: Recommendations reviewed -cardiology consultation : Recommendations reviewed -orthopedic surgery consultation -antibiotic therapy: Per Infectious Disease -PUD, DVT prophylaxis -Lomotil for diarrhea -continue regular insulin sliding scale increase Lantus. -repeat labs in a.m. -social service consultation for discharge planning. Total time spent with patient discussing and formulating plan of care: 35 minutes. This medical document was created using an electronic medical record system with [employer] system. Although this document has been carefully reviewed, there may still be some phonetic and typographical errors. These areas are purely typographical due to imperfections of the software programs, and do not reflect any compromise in the patient's medical care. Plan discussed with: Patient, Other (RN) Date of Service: May 14, 2024 Billing Provider: XOCHITL GRAY NP Common Visit Codes: [id number] INP/OBS CARE(HIGH) XOCHITL GRAY NP May 14, 2024 13:47
--- NOTE | 2024-05-14 14:16 | DVHPN2 ---
Progress Note - Dictate Date Seen: May 14, 2024 Medical Necessity Reason Pt with a Central, PICC or Fol: No Subjective c/o left knee pain afebrile vital signs Vital Sign Date Time Temp Pulse Resp B/P (MAP) Pulse Ox O2 Delivery O2 Flow Rate FiO2 05/14/24 11:27 63 17 126/42 05/14/24 09:00 98.7 92 98.7 05/13/24 19:52 Room Air* 0 21 Total Intake and Output 05/13/24 05/13/24 05/14/24 15:00 23:00 07:00 Intake Total 250 ml 118 ml 250 ml Output Total 500 ml 700 ml Balance 250 ml -382 ml -450 ml medications Current Medications Medications Dose Ordered Sig/Sunny Route Start Time Stop Time Status Last Admin Dose Admin Tamsulosin HCl 0.4 mg DAILY PO 04/25/24 10:00 05/14/24 11:20 0.4 MG Lorazepam 0.5 mg Q6HP PRN PO 04/24/24 22:15 05/10/24 23:43 0.5 MG Al Hydrox/Mg Hydrox/Simethicone 30 ml Q6HP PRN PO 04/24/24 22:15 Acetaminophen 650 mg Q6HP PRN PO 04/24/24 22:15 05/02/24 05:26 650 MG Ondansetron HCl 4 mg Q4HP PRN IV 04/24/24 22:15 Enoxaparin Sodium 30 mg DAILY SC 04/25/24 10:00 UNV Cefazolin Sodium/ Dextrose 50 ml @ 50 mls/hr Q8H IV 04/29/24 00:00 05/14/24 11:19 50 MLS/HR Ertapenem 1 gm/ Sodium Chloride 50 ml @ 100 mls/hr DAILY IV 05/03/24 10:00 05/14/24 11:19 100 MLS/HR Lidocaine HCl 15 ml ONCE PRN MT 05/04/24 08:15 Docusate Sodium 100 mg BID PO 05/04/24 22:00 05/13/24 11:23 100 MG Hydromorphone HCl 1 mg Q4HPRN PRN IV 05/06/24 14:15 05/14/24 11:27 1 MG Diphenoxylate HCl/ Atropine 2.5 mg Q12HP PRN PO 05/06/24 14:15 Insulin Glargine 30 units HS SC 05/11/24 22:00 05/13/24 22:01 30 UNITS Tramadol HCl 100 mg Q6HPRN PRN PO 05/12/24 16:00 05/13/24 03:41 100 MG objective General alert and oriented HEENT: Atraumatic Neck: No swelling Lungs: Equal air entry and clear to auscultation Cardiovascular: S2 heard no murmur Abdomen: Soft nontender, no organomegaly, nondistended ext: bilateral shoulder effusion aguayo improved decreased ROM of upper ext b/l transmetatarsal amputation left knee brace + Neuro: Alert and oriented, no focal deficit Psych: Normal mood and affect laboratory and microbiology Laboratory Tests 05/10/24 06:15 Test 05/10/24 06:15 Range/Units Serum Glucose 170 H 74-106 mg/dL Assessment/Plan Patient is a 63year-old Male with MSSA bacteremia Sepsis septic arthritis of left knee 2/ MSSA septic clavicular joint s/p i and D NECK PAIN upper back pain shoulder pain : both h/o meth abuse h/o alcohol abuse former smoker CHF s/p b/l feet transmetatarsal amputation PAD Recommendations RYAN no vegetation CT surgery: no intervention he reported that is outside his scope. Dr Adams did wash out shoulders/ again left knee ( he reported it was infected). b/l shoulder joint fluid cultures no growth s/p knee arthroscopy and wash out by ortho ( Dr Simpson) --Repeated two sets of blood cultures, last 04/23 which is positive and on 04/30 and 05/02 are negative. --Continue IV Cefazolin 2g q 8 hours and stopped IV Ertapenem 1g daily PICC line with IV cefazolin 2g q 8 hours for 6 weeks, with weekly labs cbc with diff, cmp and esr fax to [phone] he needs SNF placement due to drug abuse history awaiting for [facility] direct Aerobic culture joint fluid, clavicular jt: 05/01, Staphylococcus aureus. both shoulder joint cultures are no growth prognosis guarded thank you for opportunity for caring this patient. Discussed with provider. Dietary Evaluation Review Comments: 1) Refer pt to a RD/CDE upon DC 2) Continue current plan of care Expected Outcomes/Goals: 1) Pt to see a RD/CDE after DC 2) Pt labs to improve 3) F/U in 3-5 days Plan discussed with: HAIDER Zapata MD May 14, 2024 14:16
--- NOTE | 2024-05-14 15:47 | DVHPN2 ---
Progress Note - Dictate Date Seen: May 14, 2024 Medical Necessity Reason Pt with a Central, PICC or Fol: No Subjective Patient continues to have left knee pain. He is afebrile. vital signs Vital Sign Date Time Temp Pulse Resp B/P (MAP) Pulse Ox O2 Delivery O2 Flow Rate FiO2 05/14/24 13:00 98.1 67 17 138/40 (72) 95 98.1 05/14/24 08:00 Room Air* 0 21 Total Intake and Output 05/13/24 05/13/24 05/14/24 15:00 23:00 07:00 Intake Total 250 ml 118 ml 250 ml Output Total 500 ml 700 ml Balance 250 ml -382 ml -450 ml medications Current Medications Medications Dose Ordered Sig/Sunny Route Start Time Stop Time Status Last Admin Dose Admin Tamsulosin HCl 0.4 mg DAILY PO 04/25/24 10:00 05/14/24 11:20 0.4 MG Lorazepam 0.5 mg Q6HP PRN PO 04/24/24 22:15 05/10/24 23:43 0.5 MG Al Hydrox/Mg Hydrox/Simethicone 30 ml Q6HP PRN PO 04/24/24 22:15 Acetaminophen 650 mg Q6HP PRN PO 04/24/24 22:15 05/02/24 05:26 650 MG Ondansetron HCl 4 mg Q4HP PRN IV 04/24/24 22:15 Enoxaparin Sodium 30 mg DAILY SC 04/25/24 10:00 UNV Cefazolin Sodium/ Dextrose 50 ml @ 50 mls/hr Q8H IV 04/29/24 00:00 05/14/24 11:19 50 MLS/HR Lidocaine HCl 15 ml ONCE PRN MT 05/04/24 08:15 Docusate Sodium 100 mg BID PO 05/04/24 22:00 05/13/24 11:23 100 MG Hydromorphone HCl 1 mg Q4HPRN PRN IV 05/06/24 14:15 05/14/24 11:27 1 MG Diphenoxylate HCl/ Atropine 2.5 mg Q12HP PRN PO 05/06/24 14:15 Insulin Glargine 30 units HS SC 05/11/24 22:00 05/13/24 22:01 30 UNITS Tramadol HCl 100 mg Q6HPRN PRN PO 05/12/24 16:00 05/13/24 03:41 100 MG objective General alert and oriented HEENT: Atraumatic Neck: No swelling Lungs: Equal air entry and clear to auscultation Cardiovascular: S2 heard no murmur Abdomen: Soft nontender, no organomegaly, nondistended ext: bilateral shoulder effusion aguayo improved decreased ROM of upper ext b/l transmetatarsal amputation left knee brace + Neuro: Alert and oriented, no focal deficit Psych: Normal mood and affect laboratory and microbiology Laboratory Tests 05/10/24 06:15 Test 05/10/24 06:15 Range/Units Serum Glucose 170 H 74-106 mg/dL Assessment/Plan Patient is a 63-year-old Male with MSSA bacteremia Sepsis septic arthritis of left knee / MSSA septic clavicular joint s/p i and D septic shoulder joint NECK PAIN upper back pain shoulder pain : both h/o meth abuse h/o alcohol abuse former smoker CHF s/p b/l feet transmetatarsal amputation PAD Recommendations RYAN no vegetation CT surgery: no intervention he reported that is outside his scope. Dr Adams did wash out shoulders/ again left knee 05/01 ( he reported it was infected). b/l shoulder joint fluid cultures : mssa s/p knee arthroscopy and wash out by ortho ( Dr Simpson) --Repeated two sets of blood cultures, last 04/23 which is positive and on 04/30 and 05/02 are negative. --Continue IV Cefazolin 2g q 8 hours and stopped IV Ertapenem 1g daily,plan for 6 weeks from 05/01 to 06/12/2024 PICC line with IV cefazolin 2g q 8 hours for 4 weeks with stop date 06/12/2024, with weekly labs cbc with diff, cmp and esr fax to [phone] he needs SNF placement due to drug abuse history awaiting for [facility] direct Aerobic culture joint fluid, clavicular jt: 05/01, Staphylococcus aureus. both shoulder joint cultures are no growth prognosis guarded thank you for opportunity for caring this patient. Discussed with provider. Dietary Evaluation Review Comments: 1) Refer pt to a RD/CDE upon DC 2) Continue current plan of care Expected Outcomes/Goals: 1) Pt to see a RD/CDE after DC 2) Pt labs to improve 3) F/U in 3-5 days Plan discussed with: Patient HAIDER VAUGHN MD May 14, 2024 15:47
[2024-05-14 17:00] VITALS: BP 154/39; PULSE 65; RESP 17; TEMP 97.6; O2SAT 94
[2024-05-14 21:00] VITALS: BP 134/61; PULSE 72; RESP 20; TEMP 98.1; O2SAT 97
[2024-05-15 01:00] VITALS: BP 138/138; PULSE 65; RESP 20; TEMP 97.6; O2SAT 95
[2024-05-15 05:00] VITALS: BP 136/62; PULSE 61; RESP 20; TEMP 97.9; O2SAT 96
[2024-05-15 09:00] VITALS: BP 123/81; PULSE 63; RESP 18; TEMP 98.1; O2SAT 98
--- NOTE | 2024-05-15 12:18 | DVHPN2 ---
Subjective The patient is seen and examined at bedside. Complain of shoulder pain, knee pain. No fever or chills overnight. Reviewed: Care Plan, H&P, Labs, Medications, Previous Orders Changes from previous H/P or p: No Changes General: Per HPI Eyes: No Pain, No Vision change, No Conjunctivae inflammation, No Eyelid inflammation, No Other, No Redness ENT: No Ear pain, No Ear discharge, No Nose pain, No Nose discharge, No Nose congestion, No Mouth pain, No Mouth swelling, No Throat pain, No Throat swelling, No Other Cardiovascular: No Chest Pain, No Palpitations, No Orthopnea, No Paroxysmal Noc. Dyspnea, No Edema, No Lt Headedness, No Other Respiratory: No Cough, No Dry, No Shortness of breath, No SOB with excertion, No Wheezing, No Hemoptysis, No Pleuritic Pain, No Sputum, No Other Gastrointestinal: No Nausea, No Vomiting, No Abdominal Pain, No Diarrhea, No Constipation, No Melena, No Hematochezia, No Other Genitourinary: No Dysuria, No Frequency, No Incontinence, No Hematuria, No Retention, No Other Musculoskeletal: No other, No neck pain, No shoulder pain, No arm pain, No back pain, No hand pain, No leg pain, No foot pain Skin: No Rash, No Lesions, No Jaundice, No Bruising, No Other Objective Vitals Vital Signs Date Time Temp Pulse Resp B/P (MAP) Pulse Ox O2 Delivery O2 Flow Rate FiO2 05/15/24 11:07 63 18 113/72 05/15/24 09:00 98.1 98 98.1 05/14/24 20:00 Room Air* 0 21 Intake/Output Intake and Output 05/15/24 07:00 Intake Total 2195 ml Output Total 1050 ml Balance 1145 ml Intake Oral 2095 ml IV Total 100 ml Output Urine Total 1050 ml General Appearance: Alert, Oriented X3, Cooperative HEENT: Atraumatic, PERRLA Lungs: Clear to auscultation, Normal air movement Cardiovascular: Normal S1, Normal S2 Extremities: Other (Dressing to left lower extremity dry and intact.) Neuro: Sensation intact Skin: Dry, Intact Psych/Mental Status: Mental status NL, Mood NL Medications Current Medications Medications Dose Ordered Sig/Sunny Route Start Time Stop Time Status Last Admin Dose Admin Tamsulosin HCl 0.4 mg DAILY PO 04/25/24 10:00 05/15/24 10:57 0.4 MG Lorazepam 0.5 mg Q6HP PRN PO 04/24/24 22:15 05/10/24 23:43 0.5 MG Al Hydrox/Mg Hydrox/Simethicone 30 ml Q6HP PRN PO 04/24/24 22:15 Acetaminophen 650 mg Q6HP PRN PO 04/24/24 22:15 05/02/24 05:26 650 MG Ondansetron HCl 4 mg Q4HP PRN IV 04/24/24 22:15 Enoxaparin Sodium 30 mg DAILY SC 04/25/24 10:00 UNV Cefazolin Sodium/ Dextrose 50 ml @ 50 mls/hr Q8H IV 04/29/24 00:00 05/15/24 10:57 50 MLS/HR Lidocaine HCl 15 ml ONCE PRN MT 05/04/24 08:15 Docusate Sodium 100 mg BID PO 05/04/24 22:00 05/13/24 11:23 100 MG Hydromorphone HCl 1 mg Q4HPRN PRN IV 05/06/24 14:15 05/15/24 11:07 1 MG Diphenoxylate HCl/ Atropine 2.5 mg Q12HP PRN PO 05/06/24 14:15 Insulin Glargine 30 units HS SC 05/11/24 22:00 05/14/24 22:10 30 UNITS Tramadol HCl 100 mg Q6HPRN PRN PO 05/12/24 16:00 05/14/24 19:40 100 MG Laboratory Results Laboratory Tests 05/10/24 06:15 Urinalysis Test 04/24/24 17:25 Urine Color Light-yellow (Yellow) Urine Clarity Clear (Clear) Urine pH 5.5 (5.0-9.0) Urine Specific [place] 1.031 (1.001-1.035) Urine Protein 1+ (Negative) H Urine Ketones 1+ (Negative) H Urine Blood 1+ /uL (Negative) H Urine Nitrite Negative (Negative) Urine Bilirubin Negative (Negative) Urine Urobilinogen Normal mg/dL (Negative) Urine Leukocyte Esterase Trace /uL (Negative) Urine RBC 5 /hpf (0 - 3) Urine WBC 19 /hpf (0 - 3) Urine Squamous Epithelial Cells Few /hpf (<5) Urine Bacteria None seen /hpf (None Seen) Urine Glucose 4+ mg/dL (Normal) H Microbiology Microbiology Date/Time Source Procedure Growth Status 05/02/24 16:32 Blood Blood Culture - Final NO GROWTH AFTER 5 DAYS OF INCUBATION. Complete 05/01/24 10:10 Other Gram Stain - Final Complete 05/01/24 10:10 Other Anaerobic Culture - Final Complete 05/01/24 10:10 Aerobic Culture - Final Staphylococcus aureus Complete 04/28/24 11:00 Aspirate Gram Stain - Final Complete 04/28/24 11:00 Aspirate Anaerobic Culture - Final Complete 04/28/24 11:00 Aerobic Culture - Final Staphylococcus aureus Complete Labs and/or images reviewed: Labs reviewed by me Assessment/Plan Assessment/Plan -sepsis -septic arthritis -acute on chronic decompensated systolic heart failure -syncope with collapse -history of probable coronary artery disease with CABG -diabetes mellitus, uncontrolled -acute kidney injury, vasomotor nephropathy -chronic pain syndrome with chronic opiate use -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 Continuing with IV antibiotic. Appreciate Infectious Disease recommendation. -PUD, DVT prophylaxis -Lomotil for diarrhea -continue regular insulin sliding scale and Lantus. Continuing with IV pain medication and [place] for pain control. -immigration case worker consulted for discharge planning This medical document was created using an electronic medical record system with [employer] direct computerized dictation system. Although this document has been carefully reviewed, there may still be some phonetic and typographical errors. These areas are purely typographical due to imperfections of the software programs, and do not reflect any compromise in the patient's medical care. Plan discussed with: Patient Date of Service: May 15, 2024 Billing Provider: FRANCA ENCINAS MD Common Visit Codes: [id number] INP/OBS CARE(HIGH) FRANCA ENCINAS MD May 15, 2024 12:18
[2024-05-15 12:51] VITALS: BP 117/63; PULSE 68; RESP 16; TEMP 97.8; O2SAT 98
[2024-05-15 16:48] VITALS: BP 136/58; PULSE 62; RESP 14; TEMP 97.2; O2SAT 95
--- NOTE | 2024-05-15 17:01 | DVHPN2 ---
Progress Note - Dictate Date Seen: May 15, 2024 Medical Necessity Reason Pt with a Central, PICC or Fol: No Subjective Patient continues to have left knee pain. He also reports shoulder pain. He is afebrile. No fever or chills overnight. vital signs Vital Sign Date Time Temp Pulse Resp B/P (MAP) Pulse Ox O2 Delivery O2 Flow Rate FiO2 05/15/24 16:48 97.2 62 14 136/58 (84) 95 97.2 05/15/24 08:00 Room Air* 0 21 Total Intake and Output 05/14/24 05/14/24 05/15/24 15:00 23:00 07:00 Intake Total 1350 ml 845 ml Output Total 600 ml 450 ml Balance 750 ml 395 ml medications Current Medications Medications Dose Ordered Sig/Sunny Route Start Time Stop Time Status Last Admin Dose Admin Tamsulosin HCl 0.4 mg DAILY PO 04/25/24 10:00 05/15/24 10:57 0.4 MG Lorazepam 0.5 mg Q6HP PRN PO 04/24/24 22:15 05/10/24 23:43 0.5 MG Al Hydrox/Mg Hydrox/Simethicone 30 ml Q6HP PRN PO 04/24/24 22:15 Acetaminophen 650 mg Q6HP PRN PO 04/24/24 22:15 05/02/24 05:26 650 MG Ondansetron HCl 4 mg Q4HP PRN IV 04/24/24 22:15 Enoxaparin Sodium 30 mg DAILY SC 04/25/24 10:00 UNV Cefazolin Sodium/ Dextrose 50 ml @ 50 mls/hr Q8H IV 04/29/24 00:00 05/15/24 10:57 50 MLS/HR Lidocaine HCl 15 ml ONCE PRN MT 05/04/24 08:15 Docusate Sodium 100 mg BID PO 05/04/24 22:00 05/13/24 11:23 100 MG Hydromorphone HCl 1 mg Q4HPRN PRN IV 05/06/24 14:15 05/15/24 16:43 1 MG Diphenoxylate HCl/ Atropine 2.5 mg Q12HP PRN PO 05/06/24 14:15 Insulin Glargine 30 units HS SC 05/11/24 22:00 05/14/24 22:10 30 UNITS Tramadol HCl 100 mg Q6HPRN PRN PO 05/12/24 16:00 05/15/24 13:08 100 MG objective General alert and oriented HEENT: Atraumatic Neck: No swelling Lungs: Equal air entry and clear to auscultation Cardiovascular: S2 heard no murmur Abdomen: Soft nontender, no organomegaly, nondistended ext: bilateral shoulder effusion aguayo improved decreased ROM of upper ext b/l transmetatarsal amputation left knee brace + Neuro: Alert and oriented, no focal deficit Psych: Normal mood and affect laboratory and microbiology Laboratory Tests 05/10/24 06:15 Test 05/10/24 06:15 Range/Units Serum Glucose 170 H 74-106 mg/dL Assessment/Plan Patient is a 63-year-old Male with MSSA bacteremia Sepsis septic arthritis of left knee / MSSA septic clavicular joint s/p i and D septic shoulder joint NECK PAIN upper back pain shoulder pain : both h/o meth abuse h/o alcohol abuse former smoker CHF s/p b/l feet transmetatarsal amputation PAD Recommendations RYAN no vegetation CT surgery: no intervention he reported that is outside his scope. Dr Adams did wash out shoulders/ again left knee 05/01 ( he reported it was infected). b/l shoulder joint fluid cultures : mssa s/p knee arthroscopy and wash out by ortho ( Dr Simpson) --Repeated two sets of blood cultures, last 04/23 which is positive and on 04/30 and 05/02 are negative. --Continue IV Cefazolin 2g q 8 hours and stopped IV Ertapenem 1g daily,plan for 6 weeks from 05/01 to 06/12/2024 PICC line with IV cefazolin 2g q 8 hours for 4 weeks with stop date 06/12/2024, with weekly labs cbc with diff, cmp and esr fax to [phone] he needs SNF placement due to drug abuse history awaiting for [facility] direct Aerobic culture joint fluid, clavicular jt: 05/01, Staphylococcus aureus. both shoulder joint cultures are no growth prognosis guarded Thank you for opportunity for caring this patient. Discussed with provider. Dietary Evaluation Review Comments: 1) Refer pt to a RD/CDE upon DC 2) Continue current plan of care Expected Outcomes/Goals: 1) Pt to see a RD/CDE after DC 2) Pt labs to improve 3) F/U in 3-5 days Plan discussed with: HAIDER Zapata MD May 15, 2024 17:01
[2024-05-15 21:00] VITALS: BP 114/65; PULSE 69; RESP 18; TEMP 98.7; O2SAT 94
[2024-05-16 01:00] VITALS: BP 109/57; PULSE 66; RESP 17; TEMP 98.5; O2SAT 93
[2024-05-16 05:00] VITALS: BP 119/67; PULSE 65; RESP 18; TEMP 98.8; O2SAT 95
[2024-05-16 09:00] VITALS: BP 107/60; PULSE 65; RESP 16; TEMP 98.2; O2SAT 94
[2024-05-16 13:00] VITALS: BP 109/53; PULSE 60; RESP 16; TEMP 98.4; O2SAT 95
--- NOTE | 2024-05-16 13:13 | DVHPN2 ---
Subjective The patient is seen and examined at bedside. Complain of shoulder pain, knee pain. No fever or chills overnight. Reviewed: Care Plan, H&P, Labs, Medications, Previous Orders Changes from previous H/P or p: No Changes General: Per HPI Eyes: No Pain, No Vision change, No Conjunctivae inflammation, No Eyelid inflammation, No Other, No Redness ENT: No Ear pain, No Ear discharge, No Nose pain, No Nose discharge, No Nose congestion, No Mouth pain, No Mouth swelling, No Throat pain, No Throat swelling, No Other Cardiovascular: No Chest Pain, No Palpitations, No Orthopnea, No Paroxysmal Noc. Dyspnea, No Edema, No Lt Headedness, No Other Respiratory: No Cough, No Dry, No Shortness of breath, No SOB with excertion, No Wheezing, No Hemoptysis, No Pleuritic Pain, No Sputum, No Other Gastrointestinal: No Nausea, No Vomiting, No Abdominal Pain, No Diarrhea, No Constipation, No Melena, No Hematochezia, No Other Genitourinary: No Dysuria, No Frequency, No Incontinence, No Hematuria, No Retention, No Other Musculoskeletal: No other, No neck pain, No shoulder pain, No arm pain, No back pain, No hand pain, No leg pain, No foot pain Skin: No Rash, No Lesions, No Jaundice, No Bruising, No Other Objective Vitals Vital Signs Date Time Temp Pulse Resp B/P (MAP) Pulse Ox O2 Delivery O2 Flow Rate FiO2 05/16/24 10:48 65 20 107/60 05/16/24 08:10 Room Air* 0 21 05/16/24 05:00 98.8 95 98.8 Intake/Output Intake and Output 05/16/24 07:00 Intake Total 1670 ml Output Total 1350 ml Balance 320 ml Intake Oral 1570 ml IV Total 100 ml Output Urine Total 1350 ml # Bowel Movements 1 General Appearance: Alert, Oriented X3, Cooperative HEENT: Atraumatic, PERRLA Lungs: Clear to auscultation, Normal air movement Cardiovascular: Normal S1, Normal S2 Extremities: Other (Dressing to left lower extremity dry and intact.) Neuro: Sensation intact Skin: Dry, Intact Psych/Mental Status: Mental status NL, Mood NL Medications Current Medications Medications Dose Ordered Sig/Sunny Route Start Time Stop Time Status Last Admin Dose Admin Tamsulosin HCl 0.4 mg DAILY PO 04/25/24 10:00 05/16/24 08:58 0.4 MG Lorazepam 0.5 mg Q6HP PRN PO 04/24/24 22:15 05/10/24 23:43 0.5 MG Al Hydrox/Mg Hydrox/Simethicone 30 ml Q6HP PRN PO 04/24/24 22:15 Acetaminophen 650 mg Q6HP PRN PO 04/24/24 22:15 05/02/24 05:26 650 MG Ondansetron HCl 4 mg Q4HP PRN IV 04/24/24 22:15 Enoxaparin Sodium 30 mg DAILY SC 04/25/24 10:00 UNV Cefazolin Sodium/ Dextrose 50 ml @ 50 mls/hr Q8H IV 04/29/24 00:00 05/16/24 08:58 50 MLS/HR Lidocaine HCl 15 ml ONCE PRN MT 05/04/24 08:15 Docusate Sodium 100 mg BID PO 05/04/24 22:00 05/15/24 20:47 100 MG Hydromorphone HCl 1 mg Q4HPRN PRN IV 05/06/24 14:15 05/16/24 10:48 1 MG Diphenoxylate HCl/ Atropine 2.5 mg Q12HP PRN PO 05/06/24 14:15 Insulin Glargine 30 units HS SC 05/11/24 22:00 05/15/24 20:57 30 UNITS Tramadol HCl 100 mg Q6HPRN PRN PO 05/12/24 16:00 05/15/24 13:08 100 MG Laboratory Results Laboratory Tests 05/10/24 06:15 Urinalysis Test 04/24/24 17:25 Urine Color Light-yellow (Yellow) Urine Clarity Clear (Clear) Urine pH 5.5 (5.0-9.0) Urine Specific [place] 1.031 (1.001-1.035) Urine Protein 1+ (Negative) H Urine Ketones 1+ (Negative) H Urine Blood 1+ /uL (Negative) H Urine Nitrite Negative (Negative) Urine Bilirubin Negative (Negative) Urine Urobilinogen Normal mg/dL (Negative) Urine Leukocyte Esterase Trace /uL (Negative) Urine RBC 5 /hpf (0 - 3) Urine WBC 19 /hpf (0 - 3) Urine Squamous Epithelial Cells Few /hpf (<5) Urine Bacteria None seen /hpf (None Seen) Urine Glucose 4+ mg/dL (Normal) H Microbiology Microbiology Date/Time Source Procedure Growth Status 05/02/24 16:32 Blood Blood Culture - Final NO GROWTH AFTER 5 DAYS OF INCUBATION. Complete 05/01/24 10:10 Other Gram Stain - Final Complete 05/01/24 10:10 Other Anaerobic Culture - Final Complete 05/01/24 10:10 Aerobic Culture - Final Staphylococcus aureus Complete 04/28/24 11:00 Aspirate Gram Stain - Final Complete 04/28/24 11:00 Aspirate Anaerobic Culture - Final Complete 04/28/24 11:00 Aerobic Culture - Final Staphylococcus aureus Complete Labs and/or images reviewed: Labs reviewed by me Assessment/Plan Assessment/Plan --sepsis -septic arthritis -acute on chronic decompensated systolic heart failure -syncope with collapse -history of probable coronary artery disease with CABG -diabetes mellitus, uncontrolled -acute kidney injury, vasomotor nephropathy -chronic pain syndrome with chronic opiate use -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 Continuing with IV antibiotic. Appreciate Infectious Disease recommendation. -PUD, DVT prophylaxis -Lomotil for diarrhea -continue regular insulin sliding scale and Lantus. Continuing with IV pain medication and [place] for pain control. Continue wound care. -workers compensation legal secretary consulted for discharge planning This medical document was created using an electronic medical record system with [employer] direct computerized dictation system. Although this document has been carefully reviewed, there may still be some phonetic and typographical errors. These areas are purely typographical due to imperfections of the software programs, and do not reflect any compromise in the patient's medical care. Plan discussed with: Patient My Orders Orders - FRANCA ENCINAS MD Procedure Category Date Status Time Cleanse Wound With DENIS 05/15/24 In Process Wound Clean 12:00 Apply: DEINS 05/15/24 In Process 12:00 Date of Service: May 16, 2024 Billing Provider: FRANCA ENCINAS MD Common Visit Codes: [id number] INP/OBS CARE(HIGH) FRANCA ENCINAS MD May 16, 2024 13:13
[2024-05-16 17:00] VITALS: BP 118/55; PULSE 63; RESP 16; TEMP 97.9; O2SAT 95
--- NOTE | 2024-05-16 18:26 | DVHPN2 ---
Progress Note - Dictate Date Seen: May 16, 2024 Medical Necessity Reason Pt with a Central, PICC or Fol: No Subjective Patient does complain of 10/10 pain on bilateral shoulders and feet. Pain medication will be given. He is afebrile. No fever or chills overnight. vital signs Vital Sign Date Time Temp Pulse Resp B/P (MAP) Pulse Ox O2 Delivery O2 Flow Rate FiO2 05/16/24 17:00 97.9 63 16 118/55 (76) 95 97.9 05/16/24 08:10 Room Air* 0 21 Total Intake and Output 05/15/24 05/15/24 05/16/24 15:00 23:00 07:00 Intake Total 50 ml 870 ml 750 ml Output Total 450 ml 900 ml Balance 50 ml 420 ml -150 ml medications Current Medications Medications Dose Ordered Sig/Sunny Route Start Time Stop Time Status Last Admin Dose Admin Tamsulosin HCl 0.4 mg DAILY PO 04/25/24 10:00 05/16/24 08:58 0.4 MG Lorazepam 0.5 mg Q6HP PRN PO 04/24/24 22:15 05/10/24 23:43 0.5 MG Al Hydrox/Mg Hydrox/Simethicone 30 ml Q6HP PRN PO 04/24/24 22:15 Acetaminophen 650 mg Q6HP PRN PO 04/24/24 22:15 05/02/24 05:26 650 MG Ondansetron HCl 4 mg Q4HP PRN IV 04/24/24 22:15 Enoxaparin Sodium 30 mg DAILY SC 04/25/24 10:00 UNV Cefazolin Sodium/ Dextrose 50 ml @ 50 mls/hr Q8H IV 04/29/24 00:00 05/16/24 08:58 50 MLS/HR Lidocaine HCl 15 ml ONCE PRN MT 05/04/24 08:15 Docusate Sodium 100 mg BID PO 05/04/24 22:00 05/15/24 20:47 100 MG Hydromorphone HCl 1 mg Q4HPRN PRN IV 05/06/24 14:15 05/16/24 15:00 1 MG Diphenoxylate HCl/ Atropine 2.5 mg Q12HP PRN PO 05/06/24 14:15 Insulin Glargine 30 units HS SC 05/11/24 22:00 05/15/24 20:57 30 UNITS Tramadol HCl 100 mg Q6HPRN PRN PO 05/12/24 16:00 05/15/24 13:08 100 MG objective General alert and oriented HEENT: Atraumatic Neck: No swelling Lungs: Equal air entry and clear to auscultation Cardiovascular: S2 heard no murmur Abdomen: Soft nontender, no organomegaly, nondistended ext: bilateral shoulder effusion aguayo improved decreased ROM of upper ext b/l transmetatarsal amputation left knee brace + Neuro: Alert and oriented, no focal deficit Psych: Normal mood and affect laboratory and microbiology Laboratory Tests 05/10/24 06:15 Test 05/10/24 06:15 Range/Units Serum Glucose 170 H 74-106 mg/dL Assessment/Plan Patient is a 63-year-old Male with MSSA bacteremia Sepsis septic arthritis of left knee / MSSA septic clavicular joint s/p i and D septic shoulder joint NECK PAIN upper back pain shoulder pain : both h/o meth abuse h/o alcohol abuse former smoker CHF s/p b/l feet transmetatarsal amputation PAD Recommendations According to social service notes, patient has been declined at all higher level of care facilities. RYAN no vegetation CT surgery: no intervention he reported that is outside his scope. Dr Adams did wash out shoulders/ again left knee 05/01 ( he reported it was infected). b/l shoulder joint fluid cultures : mssa s/p knee arthroscopy and wash out by ortho ( Dr Simpson) --Repeated two sets of blood cultures, last 04/23 which is positive and on 04/30 and 05/02 are negative. --Continue IV Cefazolin 2g q 8 hours and stopped IV Ertapenem 1g daily,plan for 6 weeks from 05/01 to 06/12/2024 PICC line with IV cefazolin 2g q 8 hours for 4 weeks with stop date 06/12/2024, with weekly labs cbc with diff, cmp and esr fax to [phone] he needs SNF placement due to drug abuse history awaiting for [facility] direct Aerobic culture joint fluid, clavicular jt: 05/01, Staphylococcus aureus. both shoulder joint cultures are no growth prognosis guarded Thank you for opportunity for caring this patient. Discussed with provider. Dietary Evaluation Review Comments: 1) Refer pt to a RD/CDE upon DC 2) Continue current plan of care Expected Outcomes/Goals: 1) Pt to see a RD/CDE after DC 2) Pt labs to improve 3) F/U in 3-5 days HAIDER VAUGHN MD May 16, 2024 18:26
[2024-05-16 21:00] VITALS: BP 109/53; PULSE 74; RESP 17; TEMP 98.7; O2SAT 95
[2024-05-17 01:00] VITALS: BP 128/63; PULSE 63; RESP 18; TEMP 98.5; O2SAT 96
[2024-05-17 05:00] VITALS: BP 120/61; PULSE 64; RESP 17; TEMP 98.5; O2SAT 95
[2024-05-17 08:37] VITALS: BP 109/57; PULSE 65; RESP 17; TEMP 98.2; O2SAT 93
[2024-05-17 13:00] VITALS: BP 122/55; PULSE 71; RESP 17; TEMP 98.3; O2SAT 94
--- NOTE | 2024-05-17 14:31 | DVHPN2 ---
Subjective Denies any symptoms Reviewed: Care Plan, H&P, Labs, Medications, Previous Orders Changes from previous H/P or p: No Changes General: Per HPI Eyes: No Pain, No Vision change, No Conjunctivae inflammation, No Eyelid inflammation, No Other, No Redness ENT: No Ear pain, No Ear discharge, No Nose pain, No Nose discharge, No Nose congestion, No Mouth pain, No Mouth swelling, No Throat pain, No Throat swelling, No Other Cardiovascular: No Chest Pain, No Palpitations, No Orthopnea, No Paroxysmal Noc. Dyspnea, No Edema, No Lt Headedness, No Other Respiratory: No Cough, No Dry, No Shortness of breath, No SOB with excertion, No Wheezing, No Hemoptysis, No Pleuritic Pain, No Sputum, No Other Gastrointestinal: No Nausea, No Vomiting, No Abdominal Pain, No Diarrhea, No Constipation, No Melena, No Hematochezia, No Other Genitourinary: No Dysuria, No Frequency, No Incontinence, No Hematuria, No Retention, No Other Musculoskeletal: No other, No neck pain, No shoulder pain, No arm pain, No back pain, No hand pain, No leg pain, No foot pain Skin: No Rash, No Lesions, No Jaundice, No Bruising, No Other Objective Vitals Vital Signs Date Time Temp Pulse Resp B/P (MAP) Pulse Ox O2 Delivery O2 Flow Rate FiO2 05/17/24 11:13 65 17 109/57 05/17/24 08:37 98.2 93 98.2 05/17/24 08:00 Room Air* 0 21 Intake/Output Intake and Output 05/17/24 07:00 Intake Total 1850 ml Output Total 1400 ml Balance 450 ml Intake Oral 1800 ml IV Total 50 ml Output Urine Total 1400 ml # Voids 3 # Bowel Movements 1 General Appearance: Alert, Oriented X3, Cooperative HEENT: Atraumatic, PERRLA Lungs: Clear to auscultation, Normal air movement Cardiovascular: Normal S1, Normal S2 Abdomen: Normal bowel sounds, Soft, No tenderness, No hepatospenomegaly Extremities: Other (Dressing to left lower extremity dry and intact.) Neuro: Sensation intact Skin: Dry, Intact Psych/Mental Status: Mental status NL, Mood NL Medications Current Medications Medications Dose Ordered Sig/Sunny Route Start Time Stop Time Status Last Admin Dose Admin Tamsulosin HCl 0.4 mg DAILY PO 04/25/24 10:00 05/17/24 09:43 0.4 MG Lorazepam 0.5 mg Q6HP PRN PO 04/24/24 22:15 05/10/24 23:43 0.5 MG Al Hydrox/Mg Hydrox/Simethicone 30 ml Q6HP PRN PO 04/24/24 22:15 Acetaminophen 650 mg Q6HP PRN PO 04/24/24 22:15 05/02/24 05:26 650 MG Ondansetron HCl 4 mg Q4HP PRN IV 04/24/24 22:15 Enoxaparin Sodium 30 mg DAILY SC 04/25/24 10:00 UNV Cefazolin Sodium/ Dextrose 50 ml @ 50 mls/hr Q8H IV 04/29/24 00:00 05/17/24 09:42 50 MLS/HR Lidocaine HCl 15 ml ONCE PRN MT 05/04/24 08:15 Docusate Sodium 100 mg BID PO 05/04/24 22:00 05/15/24 20:47 100 MG Hydromorphone HCl 1 mg Q4HPRN PRN IV 05/06/24 14:15 05/17/24 11:13 1 MG Diphenoxylate HCl/ Atropine 2.5 mg Q12HP PRN PO 05/06/24 14:15 Insulin Glargine 30 units HS SC 05/11/24 22:00 05/16/24 21:32 30 UNITS Tramadol HCl 100 mg Q6HPRN PRN PO 05/12/24 16:00 05/17/24 04:09 100 MG Laboratory Results Laboratory Tests 05/10/24 06:15 Urinalysis Test 04/24/24 17:25 Urine Color Light-yellow (Yellow) Urine Clarity Clear (Clear) Urine pH 5.5 (5.0-9.0) Urine Specific [place] 1.031 (1.001-1.035) Urine Protein 1+ (Negative) H Urine Ketones 1+ (Negative) H Urine Blood 1+ /uL (Negative) H Urine Nitrite Negative (Negative) Urine Bilirubin Negative (Negative) Urine Urobilinogen Normal mg/dL (Negative) Urine Leukocyte Esterase Trace /uL (Negative) Urine RBC 5 /hpf (0 - 3) Urine WBC 19 /hpf (0 - 3) Urine Squamous Epithelial Cells Few /hpf (<5) Urine Bacteria None seen /hpf (None Seen) Urine Glucose 4+ mg/dL (Normal) H Microbiology Microbiology Date/Time Source Procedure Growth Status 05/02/24 16:32 Blood Blood Culture - Final NO GROWTH AFTER 5 DAYS OF INCUBATION. Complete 05/01/24 10:10 Other Gram Stain - Final Complete 05/01/24 10:10 Other Anaerobic Culture - Final Complete 05/01/24 10:10 Aerobic Culture - Final Staphylococcus aureus Complete 04/28/24 11:00 Aspirate Gram Stain - Final Complete 04/28/24 11:00 Aspirate Anaerobic Culture - Final Complete 04/28/24 11:00 Aerobic Culture - Final Staphylococcus aureus Complete Labs and/or images reviewed: Labs reviewed by me, Image(s) reviewed by me Assessment/Plan Assessment/Plan Impression: -sepsis -septic arthritis -acute on chronic decompensated systolic heart failure -syncope with collapse -history of probable coronary artery disease with CABG -diabetes mellitus, uncontrolled -acute kidney injury, vasomotor nephropathy -chronic pain syndrome with chronic opiate use -degenerative joint disease left shoulder and back -history of ETOH use -DTI to the left heel -left knee plateau fracture -multiple areas of septic embolus -bilateral pleural effusions Plan: -no events overnight. Apparently, patient will be re-enrolled in [facility] after meeting was performed this a.m. next week. -ID consultation: Recommendations reviewed -cardiology consultation : Recommendations reviewed -orthopedic surgery consultation -antibiotic therapy: Per Infectious Disease -PUD, DVT prophylaxis -Lomotil for diarrhea -continue regular insulin sliding scale increase Lantus. -social service consultation for discharge planning. Total time spent with patient discussing and formulating plan of care: 35 minutes. This medical document was created using an electronic medical record system with [employer] dictation system. Although this document has been carefully reviewed, there may still be some phonetic and typographical errors. These areas are purely typographical due to imperfections of the software programs, and do not reflect any compromise in the patient's medical care. Plan discussed with: Patient, Other (RN) My Orders Orders - XOCHITL GRAY NP Procedure Category Date Status Time * [facility] Rehabilitation Director CONS 05/17/24 Transmitted Consult 14:29 Date of Service: May 17, 2024 Billing Provider: XOCHITL GRAY NP Common Visit Codes: [id number] INP/OBS CARE(HIGH) XOCHITL GRAY CAGE CLERK May 17, 2024 14:31
[2024-05-17 16:39] VITALS: BP 124/65; PULSE 60; RESP 16; TEMP 98.1; O2SAT 95
[2024-05-17 21:00] VITALS: BP 110/57; PULSE 70; RESP 17; TEMP 98.7; O2SAT 96
--- NOTE | 2024-05-17 23:46 | DVHPN2 ---
Progress Note - Dictate Date Seen: May 17, 2024 Medical Necessity Reason Pt with a Central, PICC or Fol: No Subjective Patient does complain of 10/10 pain on bilateral shoulders and feet. Pain medication will be given. He is afebrile. No fever or chills overnight. re-assessment re SS consult dc to snf for iv abx patient will be re-enrolled in [facility] after meeting was performed this a.m. next week. vital signs Vital Sign Date Time Temp Pulse Resp B/P (MAP) Pulse Ox O2 Delivery O2 Flow Rate FiO2 05/17/24 21:37 70 17 110/57 05/17/24 21:00 98.7 96 98.7 05/17/24 08:00 Room Air* 0 21 Total Intake and Output 05/16/24 05/16/24 05/17/24 15:00 23:00 07:00 Intake Total 50 ml 900 ml 900 ml Output Total 800 ml 600 ml Balance 50 ml 100 ml 300 ml medications Current Medications Medications Dose Ordered Sig/Sunny Route Start Time Stop Time Status Last Admin Dose Admin Tamsulosin HCl 0.4 mg DAILY PO 04/25/24 10:00 05/17/24 09:43 0.4 MG Lorazepam 0.5 mg Q6HP PRN PO 04/24/24 22:15 05/10/24 23:43 0.5 MG Al Hydrox/Mg Hydrox/Simethicone 30 ml Q6HP PRN PO 04/24/24 22:15 Acetaminophen 650 mg Q6HP PRN PO 04/24/24 22:15 05/02/24 05:26 650 MG Ondansetron HCl 4 mg Q4HP PRN IV 04/24/24 22:15 Enoxaparin Sodium 30 mg DAILY SC 04/25/24 10:00 UNV Cefazolin Sodium/ Dextrose 50 ml @ 50 mls/hr Q8H IV 04/29/24 00:00 05/17/24 16:09 50 MLS/HR Lidocaine HCl 15 ml ONCE PRN MT 05/04/24 08:15 Docusate Sodium 100 mg BID PO 05/04/24 22:00 05/15/24 20:47 100 MG Hydromorphone HCl 1 mg Q4HPRN PRN IV 05/06/24 14:15 05/17/24 21:07 1 MG Diphenoxylate HCl/ Atropine 2.5 mg Q12HP PRN PO 05/06/24 14:15 Insulin Glargine 30 units HS SC 05/11/24 22:00 05/17/24 21:25 30 UNITS Tramadol HCl 100 mg Q6HPRN PRN PO 05/12/24 16:00 05/17/24 04:09 100 MG objective General alert and oriented HEENT: Atraumatic Neck: No swelling Lungs: Equal air entry and clear to auscultation Cardiovascular: S2 heard no murmur Abdomen: Soft nontender, no organomegaly, nondistended ext: bilateral shoulder effusion aguayo improved decreased ROM of upper ext b/l transmetatarsal amputation left knee brace + Neuro: Alert and oriented, no focal deficit Psych: Normal mood and affect laboratory and microbiology Laboratory Tests 05/10/24 06:15 Test 05/10/24 06:15 Range/Units Serum Glucose 170 H 74-106 mg/dL Assessment/Plan Patient is a 63-year-old Male with MSSA bacteremia Sepsis septic arthritis of left knee 2/2 MSSA septic clavicular joint s/p i and D septic shoulder joint NECK PAIN upper back pain shoulder pain : both h/o meth abuse h/o alcohol abuse former smoker CHF s/p b/l feet transmetatarsal amputation PAD Recommendations According to social service notes, patient has been declined at all higher level of care facilities. RAYN no vegetation CT surgery: no intervention he reported that is outside his scope. Dr Adams did wash out shoulders/ again left knee 05/01 ( he reported it was infected). b/l shoulder joint fluid cultures : mssa s/p knee arthroscopy and wash out by ortho ( Dr Simpson) --Repeated two sets of blood cultures, last 04/23 which is positive and on 04/30 and 05/02 are negative. --Continue IV Cefazolin 2g q 8 hours and stopped IV Ertapenem 1g daily,plan for 6 weeks from 05/01 to 06/12/2024 PICC line with IV cefazolin 2g q 8 hours for 4 weeks with stop date 06/12/2024, with weekly labs cbc with diff, cmp and esr fax to [phone] he needs SNF placement due to drug abuse history awaiting for [facility] direct Aerobic culture joint fluid, clavicular jt: 05/01, Staphylococcus aureus. both shoulder joint cultures are no growth prognosis guarded Thank you for opportunity for caring this patient. Discussed with provider. Dietary Evaluation Review Comments: 1) Refer pt to a RD/CDE upon DC 2) Continue current plan of care Expected Outcomes/Goals: 1) Pt to see a RD/CDE after DC 2) Pt labs to improve 3) F/U in 3-5 days HAIDER VAUGHN MD May 17, 2024 23:46
[2024-05-18] VITALS (7 sets, daily range): BP systolic 111–136; BP diastolic 50–70; PULSE 61–71; RESP 14–20; TEMP 98–98.6; O2SAT 94–96
--- NOTE | 2024-05-18 13:57 | DVHPN2 ---
Subjective Denies any symptoms Reviewed: Care Plan, H&P, Labs, Medications, Previous Orders Changes from previous H/P or p: No Changes General: Per HPI Eyes: No Pain, No Vision change, No Conjunctivae inflammation, No Eyelid inflammation, No Other, No Redness ENT: No Ear pain, No Ear discharge, No Nose pain, No Nose discharge, No Nose congestion, No Mouth pain, No Mouth swelling, No Throat pain, No Throat swelling, No Other Cardiovascular: No Chest Pain, No Palpitations, No Orthopnea, No Paroxysmal Noc. Dyspnea, No Edema, No Lt Headedness, No Other Respiratory: No Cough, No Dry, No Shortness of breath, No SOB with excertion, No Wheezing, No Hemoptysis, No Pleuritic Pain, No Sputum, No Other Gastrointestinal: No Nausea, No Vomiting, No Abdominal Pain, No Diarrhea, No Constipation, No Melena, No Hematochezia, No Other Genitourinary: No Dysuria, No Frequency, No Incontinence, No Hematuria, No Retention, No Other Musculoskeletal: No other, No neck pain, No shoulder pain, No arm pain, No back pain, No hand pain, No leg pain, No foot pain Skin: No Rash, No Lesions, No Jaundice, No Bruising, No Other Objective Vitals Vital Signs Date Time Temp Pulse Resp B/P (MAP) Pulse Ox O2 Delivery O2 Flow Rate FiO2 05/18/24 13:00 98.0 68 14 111/61 (78) 96 98.0 05/18/24 08:00 Room Air* 0 21 Intake/Output Intake and Output 05/18/24 07:00 Intake Total 1650 ml Output Total 600 ml Balance 1050 ml Intake Oral 1500 ml IV Total 150 ml Output Urine Total 600 ml # Voids 4 General Appearance: Alert, Oriented X3, Cooperative HEENT: Atraumatic, PERRLA Lungs: Clear to auscultation, Normal air movement Cardiovascular: Normal S1, Normal S2 Abdomen: Normal bowel sounds, Soft, No tenderness, No hepatospenomegaly Extremities: Other (Dressing to left lower extremity dry and intact.) Neuro: Sensation intact Skin: Dry, Intact Psych/Mental Status: Mental status NL, Mood NL Medications Current Medications Medications Dose Ordered Sig/Sunny Route Start Time Stop Time Status Last Admin Dose Admin Tamsulosin HCl 0.4 mg DAILY PO 04/25/24 10:00 05/18/24 08:42 0.4 MG Lorazepam 0.5 mg Q6HP PRN PO 04/24/24 22:15 05/18/24 11:31 0.5 MG Al Hydrox/Mg Hydrox/Simethicone 30 ml Q6HP PRN PO 04/24/24 22:15 Acetaminophen 650 mg Q6HP PRN PO 04/24/24 22:15 05/02/24 05:26 650 MG Ondansetron HCl 4 mg Q4HP PRN IV 04/24/24 22:15 Enoxaparin Sodium 30 mg DAILY SC 04/25/24 10:00 UNV Cefazolin Sodium/ Dextrose 50 ml @ 50 mls/hr Q8H IV 04/29/24 00:00 05/18/24 08:42 50 MLS/HR Lidocaine HCl 15 ml ONCE PRN MT 05/04/24 08:15 Docusate Sodium 100 mg BID PO 05/04/24 22:00 05/15/24 20:47 100 MG Hydromorphone HCl 1 mg Q4HPRN PRN IV 05/06/24 14:15 05/18/24 09:56 1 MG Diphenoxylate HCl/ Atropine 2.5 mg Q12HP PRN PO 05/06/24 14:15 Insulin Glargine 30 units HS SC 05/11/24 22:00 05/17/24 21:25 30 UNITS Tramadol HCl 100 mg Q6HPRN PRN PO 05/12/24 16:00 05/18/24 11:31 100 MG Laboratory Results Laboratory Tests 05/10/24 06:15 Urinalysis Test 04/24/24 17:25 Urine Color Light-yellow (Yellow) Urine Clarity Clear (Clear) Urine pH 5.5 (5.0-9.0) Urine Specific [place] 1.031 (1.001-1.035) Urine Protein 1+ (Negative) H Urine Ketones 1+ (Negative) H Urine Blood 1+ /uL (Negative) H Urine Nitrite Negative (Negative) Urine Bilirubin Negative (Negative) Urine Urobilinogen Normal mg/dL (Negative) Urine Leukocyte Esterase Trace /uL (Negative) Urine RBC 5 /hpf (0 - 3) Urine WBC 19 /hpf (0 - 3) Urine Squamous Epithelial Cells Few /hpf (<5) Urine Bacteria None seen /hpf (None Seen) Urine Glucose 4+ mg/dL (Normal) H Microbiology Microbiology Date/Time Source Procedure Growth Status 05/02/24 16:32 Blood Blood Culture - Final NO GROWTH AFTER 5 DAYS OF INCUBATION. Complete 05/01/24 10:10 Other Gram Stain - Final Complete 05/01/24 10:10 Other Anaerobic Culture - Final Complete 05/01/24 10:10 Aerobic Culture - Final Staphylococcus aureus Complete 04/28/24 11:00 Aspirate Gram Stain - Final Complete 04/28/24 11:00 Aspirate Anaerobic Culture - Final Complete 04/28/24 11:00 Aerobic Culture - Final Staphylococcus aureus Complete Labs and/or images reviewed: Labs reviewed by me, Image(s) reviewed by me Assessment/Plan Assessment/Plan Impression: -sepsis -septic arthritis -acute on chronic decompensated systolic heart failure -syncope with collapse -history of probable coronary artery disease with CABG -diabetes mellitus, uncontrolled -acute kidney injury, vasomotor nephropathy -chronic pain syndrome with chronic opiate use -degenerative joint disease left shoulder and back -history of ETOH use -DTI to the left heel -left knee plateau fracture -multiple areas of septic embolus -bilateral pleural effusions Plan: -no events overnight. -ID consultation: Recommendations reviewed -cardiology consultation : Recommendations reviewed -orthopedic surgery consultation -antibiotic therapy: Per Infectious Disease -PUD, DVT prophylaxis -Lomotil for diarrhea -continue regular insulin sliding scale increase Lantus. -social service consultation for discharge planning. -plans for discharge this evening. Continue all medications per medication reconciliation form Total time spent with patient discussing and formulating plan of care: 35 minutes. This medical document was created using an electronic medical record system with [employer] dictation system. Although this document has been carefully reviewed, there may still be some phonetic and typographical errors. These areas are purely typographical due to imperfections of the software programs, and do not reflect any compromise in the patient's medical care. Plan discussed with: Patient, Other (RN) My Orders Orders - XOCHITL GRAY NP Procedure Category Date Status Time * Clarifier CONS 05/17/24 Transmitted Consult 14:29 Discharge DISCHARGE 05/18/24 Transmitted 13:56 Date of Service: May 18, 2024 Billing Provider: XOCHITL GRAY NP Common Visit Codes: [id number]/OBS DISCH DAY >30min XOCHITL GRAY NP May 18, 2024 13:57
== END 2024-05-18 18:50 | DRG 710 ==
LOC: ER 16:39 → OVERFLOW 22:04 → EAST 04-25 10:02 → TELE-E-ADS 04-25 23:56 → TELE-CENTR 04-26 00:17 → TELE-WESTW 04-29 05:00 → WEST WING 05-13 03:22
PROVIDERS: ADMIT Hospitalist; ATTEND Nurse Practitioner Acute Care
PROC: 05HB33Z Insertion of Infusion Device into Right Basilic Vein, Percutaneous Approach (ICD-10-PCS; 2024-04-25)
PROC: B54MZZA Ultrasonography of Right Upper Extremity Veins, Guidance (ICD-10-PCS; 2024-04-25)
PROC: 0S9D3ZZ Drainage of Left Knee Joint, Percutaneous Approach (ICD-10-PCS; 2024-04-26)
PROC: 0S9D4ZZ Drainage of Left Knee Joint, Percutaneous Endoscopic Approach (ICD-10-PCS; 2024-04-28)
PROC: 0MDP4ZZ Extraction of Left Knee Bursa and Ligament, Percutaneous Endoscopic Approach (ICD-10-PCS; principal; 2024-04-28 10:24)
PROC: 0RBJ4ZZ Excision of Right Shoulder Joint, Percutaneous Endoscopic Approach (ICD-10-PCS; 2024-05-01)
PROC: 0RBK4ZZ Excision of Left Shoulder Joint, Percutaneous Endoscopic Approach (ICD-10-PCS; 2024-05-01)
PROC: 0JBF0ZZ Excision of Left Upper Arm Subcutaneous Tissue and Fascia, Open Approach (ICD-10-PCS; 2024-05-01)
PROC: 0SBD4ZZ Excision of Left Knee Joint, Percutaneous Endoscopic Approach (ICD-10-PCS; 2024-05-01)
PROC: B24BZZ4 Ultrasonography of Heart with Aorta, Transesophageal (ICD-10-PCS; 2024-05-04)
DX: A41.2 Sepsis due to unspecified staphylococcus (principal); N17.0 Acute kidney failure with tubular necrosis; I76 Septic arterial embolism; I50.23 Acute on chronic systolic (congestive) heart failure; M00.9 Pyogenic arthritis, unspecified; E87.20 Acidosis, unspecified; S06.9X9A Unspecified intracranial injury with loss of consciousness of unspecified duration, initial encounter; I25.3 Aneurysm of heart; L89.629 Pressure ulcer of left heel, unspecified stage; S22.41XA Multiple fractures of ribs, right side, initial encounter for closed fracture; E11.22 Type 2 diabetes mellitus with diabetic chronic kidney disease; E86.0 Dehydration; S82.142A Displaced bicondylar fracture of left tibia, initial encounter for closed fracture; M25.462 Effusion, left knee; G89.4 Chronic pain syndrome; I25.10 Atherosclerotic heart disease of native coronary artery without angina pectoris; M19.012 Primary osteoarthritis, left shoulder; N18.9 Chronic kidney disease, unspecified; R29.6 Repeated falls; I07.1 Rheumatic tricuspid insufficiency; L97.429 Non-pressure chronic ulcer of left heel and midfoot with unspecified severity; R55 Syncope and collapse; W18.39XA Other fall on same level, initial encounter; E11.65 Type 2 diabetes mellitus with hyperglycemia; D50.9 Iron deficiency anemia, unspecified; I13.0 Hypertensive heart and chronic kidney disease with heart failure and stage 1 through stage 4 chronic kidney disease, or unspecified chronic kidney disease; E11.51 Type 2 diabetes mellitus with diabetic peripheral angiopathy without gangrene; Z88.5 Allergy status to narcotic agent; Z95.1 Presence of aortocoronary bypass graft; Z79.891 Long term (current) use of opiate analgesic; Z79.4 Long term (current) use of insulin; Y93.89 Activity, other specified; Y92.89 Other specified places as the place of occurrence of the external cause; Y99.8 Other external cause status; Z83.3 Family history of diabetes mellitus; Z89.432 Acquired absence of left foot; Z89.431 Acquired absence of right foot; Z87.891 Personal history of nicotine dependence; Z95.810 Presence of automatic (implantable) cardiac defibrillator
CPT/HCPCS: 36415; 36600; 70450; 70491; 71045; 71260; 72129; 73010; 73030; 73562; 73700; 74177; 76604; 76775; 76881; 76942; 80048; 80053; 80061; 80307; 81001; 82010; 82805; 82962; 83036; 83540; 83550; 83605; 83735; 83880; 84100; 84484; 85007; 85025; 85027; 85610; 85652; 85730; 86850; 86900; 86901; 87040; 87070; 87075; 87077; 87081; 87186; 87205; 93005; 93306; 93312; 93886; 93926; 93971; 96374; 96375; 96376; 97110; 97116; 97162; 97163; 97530; 99152; A4565; G0378; J0131; J0153; J1335; J1756; J1815; J2250; J2405; J2543; J2704; J3490

== ENCOUNTER 2024-05-28 18:59 | Emergency (ER) | payer MEDICAID ==
[~2024-05-28] VITALS: Ht 175.3 cm; Wt 63.8 kg
--- NOTE | 2024-05-28 19:20 | ED.PDOC ---
History of Present Illness HPI Comments 63-year-old male who came to ER as for tube replacement. Patient was picked up at [facility] acute care, where he is undergoing treatment with IV antibiotics, when the PICC line in his right upper arm accidentally got pulled off. Patient brought in for PICC line insertion. No complaints noted at this time. Discharged here last May 18 for septic arthritis, uncontrolled diabetes, status post left knee arthroplasty, bilateral shoulder arthroplasty Chief Complaint: Tube Replacement Time Seen by MD: 19:20 Primary Care Provider: unknown Reviewed Notes: Nurses Notes Allergies: Coded Allergies: Hydrocodone (Verified Allergy, Severe, LEG SWELLING, 04/25/24) Codeine (Verified Allergy, Unknown, 04/24/24) Ketorolac Tromethamine (Verified Allergy, Unknown, 04/03/24) Home Meds Active Scripts Ibuprofen Micronized (Ibuprofen) 600 Mg Tab, 600 MG PO BID for 7 Days, #14 TAB Prov:TAMMY ANNE MD 04/07/24 Oxycodone HCl (Oxycodone Hydrochloride) 10 Mg Tab, 10 MG PO TIDPRN PRN for 7 Days, #21 TAB Prov:TAMMY ANNE MD 04/07/24 Oxycodone Hcl (OxyCONTIN ER Tablet) 10 Mg Tb, 1 TAB PO BID for 7 Days, #14 TAB 0 Refills Prov:TAMMY ANNE MD 04/07/24 Tamsulosin Hcl (Flomax) 0.4 Mg Cap, 0.4 MG PO QPM for 30 Days, #30 CAP 0 Refills Prov:TAMMY ANNE MD 04/07/24 Baclofen (Baclofen) 10 Mg Tab, 5 MG PO Q8HR for 30 Days, #45 TAB 0 Refills Prov:TAMMY ANNE MD 04/07/24 Reported Medications Tamsulosin HCl (Tamsulosin Hydrochloride) 0.4 Mg Cap, 0.4 MG PO, CAP 04/04/24 Information Source: Patient Mode of Arrival: EMS Severity: Moderate Timing: Hours Duration: Since onset Prehospital treatment: None Past Medical History PAST MEDICAL HISTORY: CAD, DM Surgical History: CABG, PTCA Family History Family History: Reviewed,noncontributory to illness Social History Smoker: Non-Smoker Alcohol: Occasionally Drugs: Denies Drug Use Lives In: Detention Constitutional: denies: chills, diaphoresis, fatigue, fever, malaise, sweats, weakness, others EENTM: denies: blurred vision, double vision, ear bleeding, ear discharge, ear drainage, ear pain, ear ringing, eye pain, eye redness, hearing loss, mouth pain, mouth swelling, nasal discharge, nose bleeding, nose congestion, nose pain, photophobia, tearing, throat pain, throat swelling, voice changes, others Respiratory: denies: cough, hemoptysis, orthopnea, SOB at rest, shortness of breath, SOB with excertion, stridor, wheezing, others Cardiovascular: denies: chest pain, dizzy spells, diaphoresis, Dyspnea on exertion, edema, irregular heart beat, left arm pain, lightheadedness, palp itations, PND, syncope, others Gastrointestinal: denies: abdomen distended, abdominal pain, blood streaked bowels, constipated, diarrhea, dysphagia, difficulty swallowing, hematemesis, melena, nausea, poor appetite, poor fluid intake, rectal bleeding, rectal pain, vomiting, others Genitourinary: denies: burning, dysuria, flank pain, frequency, hematuria, incontinence, penile discharge, penile sore, pain, testicle pain, testicle swelling, urgency, others Neurological: denies: dizziness, fainting, headache, left sided numbness, left sided weakness, numbness, paresthesia, pre-existing deficit, right sided numbness, right sided weakness, seizure, speech problems, tingling, tremors, weakness, others Musculoskeletal: reports: others (Dislodged PICC line right upper arm); denies: back pain, gout, joint pain, joint swelling, muscle pain, muscle stiffness, neck pain Integumetry: denies: bruises, change in color, change in hair/nails, dryness, laceration, lesions, lumps, rash, wounds, others Allergic/Immunocompromised: denies: Difficulty Healing, Frequent Infections, Hives, Itching, others Hematologic/Lymphatic: denies: anemia, blood clots, easy bleeding, easy bruising, swollen glands, others Endocrine: denies: excessive hunger, excessive sweating, excessive thirst, excessive urination, flushing, intolerance to cold, intolerance to heat, unexplained weight gain, unexplained weight loss, others Psychiatric: denies: anxiety, bipolar disorder, depression, hopeless, panic disorder, schizophrenia, sleepless, suicidal, others Physical Exam General Appearance: No Apparent Distress, Normal HEENT: Normal ENT Inspection, Pharynx Normal, TMs Normal Neck: Full Range of Motion, Non-Tender, Normal, Normal Inspection Respiratory: Chest Non-Tender, Lungs Clear, No Accessory Muscle Use, No Respiratory Distress, Normal Breath Sounds Cardiovascular: No Edema, No JVD, No Murmur, No Gallop, Normal Peripheral Pulses, Regular Rate/Rhythm Breast Exam: Deferred Gastrointestinal: No Organomegaly, Non Tender, No Pulsatile Mass, Normal Bowel Sounds, Soft Genitalia: Deferred Pelvic: Deferred Rectal: Deferred Extremities: No calf tenderness, Normal capillary refill, Normal inspection, Normal range of motion, Non-tender, No pedal edema Musculoskeletal : Apperance: Normal Neurologic: Alert, laundry pricing clerk II-XII nml as Tested, No Motor Deficits, Normal Affect, Normal Mood, No Sensory Deficits Cerebellar Function: Normal Reflexes: Normal Skin: Dry, Normal Color, Warm Lymphatic: No Adenopathy Was a procedure done? Was a procedure done?: No Differential Dx Considerations may include: Dislodged PICC line, sepsis X-Ray, Labs, Meds, VS Vital Signs Date Time Temp Pulse Resp B/P (MAP) Pulse Ox O2 Delivery O2 Flow Rate FiO2 05/28/24 19:07 98.0 66 18 139/65 (89) 98 Lab Test 05/28/24 19:25 Range/Units White Blood Count 8.0 4.4-10.8 10^3/uL Red Blood Count 4.09 L 4.5-5.90 10^6/uL Hemoglobin 11.1 L 13.5-17.5 g/dL Hematocrit 34.7 L 41.0-53.0 % Mean Corpuscular Volume 84.8 80.0-100.0 fL Mean Corpuscular Hemoglobin 27.2 L 28.0-32.0 pg Mean Corpuscular Hemoglobin Concent 32.0 32.0-36.0 g/dL Red Cell Distribution Width 22.0 H 11.8-14.3 % Platelet Count 210 140-450 10^3/uL Mean Platelet Volume 8.3 6.9-10.8 fL Neutrophils (%) (Auto) 79.4 37.0-80.0 % Lymphocytes (%) (Auto) 10.4 10.0-50.0 % Monocytes (%) (Auto) 6.9 0.0-12.0 % Eosinophils (%) (Auto) 2.5 0.0-7.0 % Basophils (%) (Auto) 0.8 0.0-2.0 % Neutrophils # (Auto) 6.4 1.6-8.6 10 ^3/uL Lymphocytes # (Auto) 0.8 0.4-5.4 10 ^3/uL Monocytes # (Auto) 0.6 0-1.3 10 ^3/uL Eosinophils # (Auto) 0.2 0-0.8 10 ^3/uL Basophils # (Auto) 0.1 0-0.2 10 ^3/uL Nucleated Red Blood Cells 0.1 % Prothrombin Time 11.0 9.3-11.8 sec Prothrombin Time INR 1.04 0.9-1.15 Sodium Level 132 L 136-145 mmol/L Potassium Level 4.4 3.5-5.1 mmol/L Chloride Level 101 98-107 mmol/L Carbon Dioxide Level 24 20-31 mmol/L Anion Gap 7 5-15 Blood Urea Nitrogen 14 9-23 mg/dL Creatinine 0.81 0.700-1.30 mg/dL Glomerular Filtration Rate Calc 100 >90 mL/min BUN/Creatinine Ratio 17.3 10.0-20.0 Serum Glucose 246 H 74-106 mg/dL Calcium Level 9.3 8.7-10.4 mg/dL Time of 1ST Reevaluation: 19:15 Reevaluation 1ST: Unchanged Patient Education/Counseling: Diagnosis Family Education/Counseling: No Family Present Departure 1 Departure Time of Disposition: 20:00 Impression: Primary Impression: PIC line (peripherally inserted central catheter) removal Disposition: 01 HOME / SELF CARE / HOMELESS Condition: Stable Discharged With: Self Critical Care Note Critical Care Time?: No Stability Stability form required: No Heart Score Heart Score: Heart Score Response (Comments) Value History N/A 0 EKG N/A 0 Age N/A 0 Risk Factors N/A 0 Troponin N/A 0 Total 0 I personally scribed for IOANA ADAMS MD ([email or web address]) on 05/28/24 at 19:20. Electronically submitted by [facility]il Eid ([facility] I personally scribed for IOANA ADAMS MD ([email or web address]) on 05/28/24 at 19:22. Electronically submitted by Emil Eid ([email or web address]). IOANA ADAMS MD May 28, 2024 19:20
[2024-05-28 19:52] LABS: Basophils # (auto) 0.1 10 ^3/uL (0-0.2); Basophils % (auto) 0.8 % (0.0-2.0); Eosinophils # (auto) 0.2 10 ^3/uL (0-0.8); Monocytes # (auto) 0.6 10 ^3/uL (0-1.3); Nucleated Red Blood Cells % 0.1 %
[2024-05-28 19:55] LABS: Eosinophils % (auto) 2.5 % (0.0-7.0); Hematocrit 34.7 % (41.0-53.0); Hemoglobin 11.1 g/dL (13.5-17.5); Lymphocytes # (auto) 0.8 10 ^3/uL (0.4-5.4); Lymphocytes % (auto) 10.4 % (10.0-50.0); Mean Corpuscular Hemoglobin 27.2 pg (28.0-32.0); Mean Corpuscular Volume 84.8 fL (80.0-100.0); Monocytes % (auto) 6.9 % (0.0-12.0); Neutrophils # (auto) 6.4 10 ^3/uL (1.6-8.6); Neutrophils % (auto) 79.4 % (37.0-80.0); Platelet Count (auto) 210 10^3/uL (140-450); Red Blood Cells 4.09 10^6/uL (4.5-5.90)
[2024-05-28 20:01] LABS: Chloride 101 mmol/L (98-107); Potassium 4.4 mmol/L (3.5-5.1)
[2024-05-28 20:02] LABS: Anion Gap 7 (5-15); Calcium 9.3 mg/dL (8.7-10.4); Carbon Dioxide 24 mmol/L (20-31)
[2024-05-28 20:07] LABS: BUN/Creatinine Ratio 17.3 (10.0-20.0); Blood Urea Nitrogen 14 mg/dL (9-23)
[2024-05-28 20:09] LABS: INR 1.04 (0.9-1.15)
[2024-05-28 20:15] LABS: Glucose 246 mg/dL (74-106); Sodium 132 mmol/L (136-145)
[2024-05-29 03:59] VITALS: BP 142/85; TEMP 98.5
[2024-05-29 04:00] VITALS: PULSE 78; RESP 18; O2SAT 95
--- NOTE | 2024-05-31 15:19 | ECG ---
[facility] Test Date: 2024-05-28 Test Time: 23:07:34 Pat Name: GEORGIANA VILLAR Department: ER Room: Gender: M [employer] Operator: JANIYA : 1960 Requested By: IOANA ADAMS Order Number: [id number] Reading MD: Thomas Burton Measurements Intervals [place] Rate: 71 P: 0 GA: 99 QRS: 46 QRSD: 135 T: 0 QT: 448 QTc: 487 Interpretive Statements Sinus rhythm Ventricular bigeminy Short GA interval Nonspecific intraventricular conduction delay Inferior infarct, old Lateral leads are also involved Electronically Signed On 06-01-2024 13:04:08 PST by Thomas Burton Please click the below link to view image of tracing.
== END 2024-05-29 04:17 | disposition home or self-care (01) ==
LOC: EDBD 18:59 → ER 18:59
DX: T82.524A Displacement of infusion catheter, initial encounter (principal); I25.10 Atherosclerotic heart disease of native coronary artery without angina pectoris; E11.9 Type 2 diabetes mellitus without complications; Z45.2 Encounter for adjustment and management of vascular access device; Z88.5 Allergy status to narcotic agent; Z95.1 Presence of aortocoronary bypass graft; Z96.652 Presence of left artificial knee joint
CPT/HCPCS: 36415; 80048; 85025; 85610; 93005

== ENCOUNTER 2024-07-22 19:08 | Inpatient (IN) | payer MEDICAID ==
[~2024-07-22] VITALS: Ht 185.4 cm; Wt 71.6 kg
[2024-07-22 12:45] VITALS: BP 126/75; PULSE 99; RESP 20; TEMP 97.3; O2SAT 96
[2024-07-22] MEDS: ASPirin 81 mg TAB PO ONE (20:04)
[2024-07-22] MEDS: ONDANSETRON HCL 4 MG/2 ML VIAL IV ONE (20:04)
[2024-07-22] MEDS: MORPHINE SULFATE 4 MG/ML SYR/VIAL IV ONE (20:05)
[2024-07-22 20:06] LABS: Basophils # (auto) 0.1 10 ^3/uL (0-0.2); Basophils % (auto) 0.8 % (0.0-2.0); Eosinophils # (auto) 0.2 10 ^3/uL (0-0.8); Eosinophils % (auto) 2.1 % (0.0-7.0); Hematocrit 42.4 % (41.0-53.0); Lymphocytes # (auto) 1.2 10 ^3/uL (0.4-5.4); Mean Corpuscular Hemoglobin 29.2 pg (28.0-32.0); Mean Corpuscular Hgb Conc. 32.9 g/dL (32.0-36.0); Mean Corpuscular Volume 88.6 fL (80.0-100.0); Monocytes # (auto) 0.5 10 ^3/uL (0-1.3); Monocytes % (auto) 6.7 % (0.0-12.0); Neutrophils # (auto) 6.1 10 ^3/uL (1.6-8.6); Neutrophils % (auto) 75.4 % (37.0-80.0); Nucleated Red Blood Cells % 0.2 %; Platelet Count (auto) 200 10^3/uL (140-450); Red Blood Cells 4.79 10^6/uL (4.5-5.90); Red Cell Distribution Width 16.1 % (11.8-14.3); White Blood Cell 8.1 10^3/uL (4.4-10.8)
--- NOTE | 2024-07-22 20:29 | DVH ---
EXAMINATION: AP portable chest radiograph CLINICAL HISTORY: cp COMPARISON: XY CHEST XRAY 1 VIEW on DOS: 04/26/24 FINDINGS: Left-sided implantable cardiac device again noted. Median sternotomy changes. Interstitial prominence. Scattered linear opacities in the lower lung collazo, more apparent on the l eft. No lobar consolidation identified. No definite pleural effusion or pneumothorax. The cardiomediastin al silhouette appears within normal limits given technique. IMPRESSION: Interstitial prominence is relatively nonspecific but can be seen with edema, reactive airway changes as well as atypical / viral infection. Scattered atelectasis/ scarring in the lower lung collazo. De veloping infiltrates not excluded.
[2024-07-22] MEDS ORDERED: ONDANSETRON HCL 4 MG/2 ML VIAL IV PRN (20:45)
[2024-07-22] MEDS ORDERED: DOCUSATE SOD 100 MG CAP PO PRN (20:45)
[2024-07-22] MEDS ORDERED: ACETAMINOPHEN 325 MG TAB PO PRN (20:45)
[2024-07-22 21:00] VITALS: PULSE 101; RESP 18; O2SAT 94
[2024-07-22 21:11] LABS: Albumin 4.2 g/dL (3.2-4.8); Alkaline Phosphatase 108 U/L (46-116); Anion Gap 18 (5-15); BUN/Creatinine Ratio 13.9 (10.0-20.0); Blood Urea Nitrogen 11 mg/dL (9-23); Calcium 9.7 mg/dL (8.7-10.4); Chloride 103 mmol/L (98-107); Sodium 138 mmol/L (136-145)
[2024-07-22 21:12] LABS: Total Protein 7.4 g/dL (5.7-8.2)
[2024-07-22] MEDS: AZITHROMYCIN 500MG/ 250ML 250 ML IV ONE (21:19)
--- NOTE | 2024-07-22 21:46 | ED.PDOC ---
HPI Comments This is a 63-year-old male who comes in with chief complaint of chest pain. The patient states that the pain has been going on for the past three days. The pain seems to radiate towards his back and it is an 8/10. The pain is associated with shortness for breath as well as nausea but no fever or chills. He describes the pain as dull. He has been noncompliant with his medication for two weeks which are for his cardiac disease as well as other illnesses. EN route, the patient was Accu-Chek was 297. Chief Complaint: Chest Pain Time Seen by MD: 19:12 Primary Care Provider: ? Reviewed Notes: Nurses Notes, Manager Urgent Care Notes, Medications, Allergies (Allergies listed above) Allergies: Coded Allergies: Hydrocodone (Verified Allergy, Severe, LEG SWELLING, 04/25/24) Codeine (Verified Allergy, Unknown, 04/24/24) Ketorolac Tromethamine (Verified Allergy, Unknown, 04/03/24) Home Meds Active Scripts Ibuprofen Micronized (Ibuprofen) 600 Mg Tab, 600 MG PO BID for 7 Days, #14 TAB Prov:TAMMY ANNE MD 04/07/24 Oxycodone HCl (Oxycodone Hydrochloride) 10 Mg Tab, 10 MG PO TIDPRN PRN for 7 Days, #21 TAB Prov:TMAMY ANNE MD 04/07/24 Oxycodone Hcl (OxyCONTIN ER Tablet) 10 Mg Tb, 1 TAB PO BID for 7 Days, #14 TAB 0 Refills Prov:TAMMY ANNE MD 04/07/24 Tamsulosin Hcl (Flomax) 0.4 Mg Cap, 0.4 MG PO QPM for 30 Days, #30 CAP 0 Refills Prov:TAMMY ANNE MD 04/07/24 Baclofen (Baclofen) 10 Mg Tab, 5 MG PO Q8HR for 30 Days, #45 TAB 0 Refills Prov:TAMMY ANNE MD 04/07/24 Reported Medications Tamsulosin HCl (Tamsulosin Hydrochloride) 0.4 Mg Cap, 0.4 MG PO, CAP 04/04/24 Information Source: Patient, Emergency Med Personnel Mode of Arrival: EMS Severity: Moderate Timing: Days Duration: Since onset Prehospital treatment: 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 (297), 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, 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 Location: Substernal Radiation: Back Quality: Squeezing, Pressure Onset: At Rest Cardiac Risk Factors: Family History, Hyperlipidemia, HTN PE Risk Factors: None History of: Similar pain in past, SD Modifying Factors: Nothing Associated Signs and Symptoms: SOB, N/V (Nausea but no vomiting) Past Medical History PAST MEDICAL HISTORY: CAD, CHF, CKF, DM, High Lipids, SD, PE Past Medical History (Other): History of V-tach Surgical History: CABG, PTCA, Tonsillectomy Surgical History (Other): AICD, bilateral foot amputations Family History Family History: Reviewed,noncontributory to illness Social History Smoker: Non-Smoker Alcohol: Occasionally Drugs: Denies Drug Use Lives In: Home Constitutional: denies: chills, diaphoresis, fatigue, fever, malaise, sweats, weakness, others EENTM: denies: blurred vision, double vision, ear bleeding, ear discharge, ear drainage, ear pain, ear ringing, eye pain, eye redness, hearing loss, mouth pain, mouth swelling, nasal discharge, nose bleeding, nose congestion, nose pain, photophobia, tearing, throat pain, throat swelling, voice changes, others Respiratory: reports: shortness of breath; denies: cough, hemoptysis, orthopnea, SOB at rest, SOB with excertion, stridor, wheezing, others Cardiovascular: reports: chest pain; denies: dizzy spells, diaphoresis, Dyspnea on exertion, edema, irregular heart beat, left arm pain, lightheadedness, palpitations, PND, syncope, others Gastrointestinal: reports: nausea; denies: abdomen distended, abdominal pain, blood streaked bowels, constipated, diarrhea, dysphagia, difficulty swallowing, hematemesis, melena, poor appetite, poor fluid intake, rectal bleeding, rectal pain, vomiting, others Genitourinary: denies: burning, dysuria, flank pain, frequency, hematuria, incontinence, penile discharge, penile sore, pain, testicle pain, testicle swelling, urgency, others Neurological: denies: dizziness, fainting, headache, left sided numbness, left sided weakness, numbness, paresthesia, pre-existing deficit, right sided numbnes s, right sided weakness, seizure, speech problems, tingling, tremors, weakness, others Musculoskeletal: denies: back pain, gout, joint pain, joint swelling, muscle pain, muscle stiffness, neck pain, others Integumetry: denies: bruises, change in color, change in hair/nails, dryness, laceration, lesions, lumps, rash, wounds, others Allergic/Immunocompromised: denies: Difficulty Healing, Frequent Infections, Hives, Itching, others Hematologic/Lymphatic: denies: anemia, blood clots, easy bleeding, easy bruising, swollen glands, others Endocrine: denies: excessive hunger, excessive sweating, excessive thirst, excessive urination, flushing, intolerance to cold, intolerance to heat, unexplained weight gain, unexplained weight loss, others Psychiatric: denies: anxiety, bipolar disorder, depression, hopeless, panic disorder, schizophrenia, sleepless, suicidal, others Physical Exam General Appearance: Moderate Distress HEENT: Normal ENT Inspection, Pharynx Normal, TMs Normal Neck: Full Range of Motion, Non-Tender, Normal, Normal Inspection Respiratory: Chest Non-Tender, Lungs Clear, No Accessory Muscle Use, No Respiratory Distress, Normal Breath Sounds Cardiovascular: No Edema, No JVD, No Murmur, No Gallop, Normal Peripheral Pulses, Regular Rate/Rhythm Breast Exam: Deferred Gastrointestinal: No Organomegaly, Non Tender, No Pulsatile Mass, Normal Bowel Sounds, Soft Genitalia: Deferred Pelvic: Deferred Rectal: Deferred Extremities: No calf tenderness, Normal capillary refill, No pedal edema, Other (The patient was bilateral feet amputations) Musculoskeletal : Apperance: Normal 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 Was a procedure done?: No CP Differential Dx Differential Diagnosis: Angina, SD, Pulmonary Embolus Differential Diagnosis: CHF, HTN Encephalopathy Differential Diagnosis: Pericarditis X-Ray, Labs, Meds, VS Vital Signs Date Time Temp Pulse Resp B/P (MAP) Pulse Ox O2 Delivery O2 Flow Rate FiO2 07/22/24 21:30 90 13 117/69 (85) 92 07/22/24 20:11 98 07/22/24 20:05 102 14 105/62 07/22/24 20:00 106 07/22/24 19:30 98.2 99 14 102/69 (80) 98 98.2 07/22/24 19:12 98.1 103 18 114/63 (80) 94 07/22/24 19:09 97 Lab Test 07/22/24 20:46 07/22/24 20:30 07/22/24 19:41 Range/Units Troponin I High Sensitivity Pending 4 </=54 ng/L Urine Color Pending Urine Clarity Pending Urine pH Pending Urine Specific [place] Pending Urine Protein Pending Urine Ketones Pending Urine Blood Pending Urine Nitrite Pending Urine Bilirubin Pending Urine Urobilinogen Pending Urine Leukocyte Esterase Pending Urine RBC Pending Urine Microscopic WBC Pending Urine Squamous Epithelial Cells Pending Urine Bacteria Pending Urine Glucose Pending White Blood Count 8.1 4.4-10.8 10^3/uL Red Blood Count 4.79 4.5-5.90 10^6/uL Hemoglobin 14.0 13.5-17.5 g/dL Hematocrit 42.4 41.0-53.0 % Mean Corpuscular Volume 88.6 80.0-100.0 fL Mean Corpuscular Hemoglobin 29.2 28.0-32.0 pg Mean Corpuscular Hemoglobin Concent 32.9 32.0-36.0 g/dL Red Cell Distribution Width 16.1 H 11.8-14.3 % Platelet Count 200 140-450 10^3/uL Mean Platelet Volume 8.0 6.9-10.8 fL Neutrophils (%) (Auto) 75.4 37.0-80.0 % Lymphocytes (%) (Auto) 15.0 10.0-50.0 % Monocytes (%) (Auto) 6.7 0.0-12.0 % Eosinophils (%) (Auto) 2.1 0.0-7.0 % Basophils (%) (Auto) 0.8 0.0-2.0 % Neutrophils # (Auto) 6.1 1.6-8.6 10 ^3/uL Lymphocytes # (Auto) 1.2 0.4-5.4 10 ^3/uL Monocytes # (Auto) 0.5 0-1.3 10 ^3/uL Eosinophils # (Auto) 0.2 0-0.8 10 ^3/uL Basophils # (Auto) 0.1 0-0.2 10 ^3/uL Nucleated Red Blood Cells 0.2 % Sodium Level Pending Potassium Level Pending Chloride Level Pending Carbon Dioxide Level Pending Anion Gap Pending Blood Urea Nitrogen Pending Creatinine Pending Glomerular Filtration Rate Calc Pending BUN/Creatinine Ratio Pending Serum Glucose Pending Calcium Level Pending Magnesium Level 1.8 1.6-2.6 mg/dL Total Bilirubin Pending Aspartate Amino Transferase (AST) Pending Alanine Aminotransferase (ALT) Pending Alkaline Phosphatase Pending B-Type Natriuretic Peptide Pending Total Protein Pending Albumin Pending Current Medications Medications (Trade) Dose Ordered Sig/Sunny Route Start Time Stop Time Status Last Admin Aspirin 162 mg ONCE ONCE PO 07/22/24 19:30 07/22/24 19:31 DC 07/22/24 20:04 Morphine Sulfate 4 mg ONCE ONCE IV 07/22/24 19:30 07/22/24 19:31 DC 07/22/24 20:05 Ondansetron HCl (Zofran) 4 mg ONCE ONCE IV 07/22/24 19:30 07/22/24 19:31 DC 07/22/24 20:04 Azithromycin 250 ml @ 125 mls/hr ONCE ONCE IV 07/22/24 20:45 07/22/24 22:44 07/22/24 21:19 IV Hep-Lock was established The patient was given aspirin 162 mg by mouth The patient was given morphine 4 mg IV push for the pain The patient was given Zofran 4 mg IV push for the nausea The CBC is within normal limits The patient continues to have persistent chest pain The 1st troponin level came back negative The patient was being admitted to the hospitalist Images Reviewed?: Images reviewed and evaluated by me Time of 1ST Reevaluation: 21:52 Reevaluation 1ST: Unchanged Patient Education/Counseling: Diagnosis, Treatment, Prognosis Family Education/Counseling: No Family Present Departure 1 Departure Time of Disposition: 21:53 Impression: Primary Impression: Acute coronary syndrome Disposition: 09 ADMITTED INPATIENT Admit to: [facility] Condition: Fair Critical Care Note Critical Care Time?: Yes (45 min-critical care time only) Stability Stability form required: Yes Unstable for transfer: Telemetry monitoring (Telemetry monitoring required), ED Physician Assesment (Clinical assesment) Heart Score Heart Score: Heart Score Response (Comments) Value History Moderate Suspicious 1 EKG Repolarization Disturb 1 Age >65 2 Risk Factors >3 or Hx ASHD 2 Troponin Normal limit 0 Total 6 OLU HEATH MD Jul 22, 2024 21:46
[2024-07-22 21:51] LABS: Urine Bacteria FEW /hpf (None Seen); Urine Blood TRACE /uL (Negative); Urine Clarity Clear (Clear); Urine Color Light-Yellow (Yellow); Urine Mucus FEW (None Seen); Urine Protein, UAD 1+ (Negative); Urine Specific Gravity 1.018 (1.001-1.035); Urine Squamous Epithelial Cell FEW /hpf (<5); Urine Urobilinogen Normal (Negative); Urine WBC 2 /HPF (0-3); Urine pH 5.5 (5.0-9.0)
[2024-07-22 21:51] LABS: Alanine Aminotransferase < 9 U/L (7-40); Aspartate Aminotransferase < 8 U/L (13-40); Bilirubin, Total 0.2 mg/dL (0.2-1.0); Carbon Dioxide 17 mmol/L (20-31); Glucose 376 mg/dL (74-106); Potassium 3.4 mmol/L (3.5-5.1)
[2024-07-22] MEDS: SODIUM CHLOR 0.9% PF (SALINE LOCK) 10ML VIAL/SYR IV SCH (22:07)
[2024-07-22] MEDS: ATORVASTATIN 20 MG TAB PO SCH (22:09)
--- NOTE | 2024-07-22 22:42 | DVHHP2 ---
History of Present Illness Reason for Visit: Chest pain History of Present Illness The patient is a 63-year-old male with multiple past medical history including CHF, Coronary artery disease, DM, and hyperlipidemia who presented to [facility] ED with complaint of chest pain. Patient reports he has been having chest pain for the past 3 days, radiates to his back, rating 8/10 numeric scale, associated shortness of breaths, nausea, getting worse today that prompted this visit. Patient was seen and evaluated in the ED, laboratory data shows WBC 8.1, platelets 200, sodium 138, potassium 3.4, BUN 11, creatinine 0.79, glucose 376, BNP 66.03, magnesium 1.8, troponin 4. Chest x-ray revealing interstitial prominence is relatively nonspecific but can be seen with edema, reactive airway changes as well as atypical/viral infection, scattered atelectasis/scarring in the lower lung collazo, developing infiltrates not excluded. Please see medication orders section in the computer. On my assessment, patient denies chest pain at this moment, no headache, no dizziness, no diaphoresis, no shortness of breaths, no nausea, no vomiting, no fever, no chills. Patient was admitted for further evaluation and medical management. Past Medical History CAD, CHF, CKF, DM, High Lipids, MT, PE, V-tach Past Surgical History CABG, PTCA, Tonsillectomy, AICD, Bilateral foot amputations Family History Reviewed, noncontributory to the management of this case. Past Social History The patient lives at home, denies smoking, alcohol or illicit drugs abuse. Review of Systems Constitutional: No: Fever, Chills, Sweats, Weakness, Malaise, Other Eyes: No: Pain, Vision change, Conjunctivae inflammation, Eyelid inflammation, Other, Redness ENT: No: Ear pain, Ear discharge, Nose pain, Nose discharge, Nose congestion, Mouth pain, Mouth swelling, Throat pain, Throat swelling, Other Respiratory: Shortness of breath; No: Cough, Dry, SOB with excertion, Wheezing, Hemoptysis, Pleuritic Pain, Sputum, Wheezing, Other Cardiovascular: Chest Pain; No: Palpitations, Orthopnea, Paroxysmal Noc. Dyspnea, Edema, Lt Headedness, Other Gastrointestinal: Nausea; No: Vomiting, Abdominal Pain, Diarrhea, Constipation, Melena, Hematochezia, Other Genitourinary: No Dysuria, No Frequency, No Incontinence, No Hematuria, No Retention, No Other Musculoskeletal: No: other, neck pain, shoulder pain, arm pain, back pain, hand pain, leg pain, foot pain Skin: No: Rash, Lesions, Jaundice, Bruising, Other Neurological: No: Weakness, Numbness, Incoordination, Change in speech, Confusion, Seizures, Other Allergies: Coded Allergies: Hydrocodone (Verified Allergy, Severe, LEG SWELLING, 04/25/24) Codeine (Verified Allergy, Unknown, 04/24/24) Ketorolac Tromethamine (Verified Allergy, Unknown, 04/03/24) Medications Current Medications Medications Dose Ordered Sig/Sunny Route Start Time Stop Time Status Last Admin Dose Admin Aspirin 81 mg DAILY PO 07/23/24 10:00 Atorvastatin Calcium 10 mg HS PO 07/22/24 22:00 07/22/24 22:09 10 MG Sodium Chloride 10 ml Q8HR IV 07/22/24 22:00 07/22/24 22:07 10 ML Ondansetron HCl 4 mg Q4HP PRN IV 07/22/24 20:45 Docusate Sodium 100 mg BIDPRN PRN PO 07/22/24 20:45 Acetaminophen 650 mg Q6HP PRN PO 07/22/24 20:45 Tamsulosin HCl 0.4 mg QPM PO 07/23/24 18:00 Azithromycin 250 ml @ 125 mls/hr DAILY IV 07/23/24 10:00 Exam Vital Signs Vital Signs Date Time Temp Pulse Resp B/P (MAP) Pulse Ox O2 Delivery O2 Flow Rate FiO2 07/22/24 22:09 97 07/22/24 21:30 13 117/69 (85) 92 07/22/24 19:30 98.2 98.2 General Appearance: Alert, Oriented X3, Cooperative, No acute distress HEENT: Atraumatic, PERRLA, EOMI, Mucous membr. moist/pink Respiratory: Normal air movement, Other (Diminished breath sounds) Cardiovascular: Regular rate, Normal S1, Normal S2, No murmurs Abdominal: Normal bowel sounds, Soft, No tenderness, No hepatospenomegaly, No masses Extremities: No clubbing, No cyanosis, No edema, Normal pulses, No tenderness/swelling Skin: No rashes, No breakdown, No significant lesion Neuro: Normal speech, Normal tone, Sensation intact, Cranial nerves 3-12 NL, Reflexes 2+, Other (Generalized weakness) Psych/Mental Status: Mental status NL, Mood NL Labs/Xrays Labs Test 07/22/24 22:37 07/22/24 20:30 07/22/24 19:41 Range/Units Urine Color Light-yellow Yellow Urine Clarity Clear Clear Urine pH 5.5 5.0-9.0 Urine Specific [place] 1.018 1.001-1.035 Urine Protein 1+ H Negative Urine Ketones Trace Negative Urine Blood Trace H Negative /uL Urine Nitrite Negative Negative Urine Bilirubin Negative Negative Urine Urobilinogen Normal Negative mg/dL Urine Leukocyte Esterase Negative Negative /uL Urine RBC 1 0 - 3 /hpf Urine Microscopic WBC 2 0-3 /HPF Urine Squamous Epithelial Cells Few <5 /hpf Urine Bacteria Few H None Seen /hpf Urine Granular Casts Few 0 /lpf Urine Mucus Few None Seen Urine Glucose 4+ H Normal mg/dL White Blood Count 8.1 4.4-10.8 10^3/uL Red Blood Count 4.79 4.5-5.90 10^6/uL Hemoglobin 14.0 13.5-17.5 g/dL Hematocrit 42.4 41.0-53.0 % Mean Corpuscular Volume 88.6 80.0-100.0 fL Mean Corpuscular Hemoglobin 29.2 28.0-32.0 pg Mean Corpuscular Hemoglobin Concent 32.9 32.0-36.0 g/dL Red Cell Distribution Width 16.1 H 11.8-14.3 % Platelet Count 200 140-450 10^3/uL Mean Platelet Volume 8.0 6.9-10.8 fL Neutrophils (%) (Auto) 75.4 37.0-80.0 % Lymphocytes (%) (Auto) 15.0 10.0-50.0 % Monocytes (%) (Auto) 6.7 0.0-12.0 % Eosinophils (%) (Auto) 2.1 0.0-7.0 % Basophils (%) (Auto) 0.8 0.0-2.0 % Neutrophils # (Auto) 6.1 1.6-8.6 10 ^3/uL Lymphocytes # (Auto) 1.2 0.4-5.4 10 ^3/uL Monocytes # (Auto) 0.5 0-1.3 10 ^3/uL Eosinophils # (Auto) 0.2 0-0.8 10 ^3/uL Basophils # (Auto) 0.1 0-0.2 10 ^3/uL Nucleated Red Blood Cells 0.2 % Sodium Level 138 136-145 mmol/L Potassium Level 3.4 L 3.5-5.1 mmol/L Chloride Level 103 98-107 mmol/L Carbon Dioxide Level 17 L 20-31 mmol/L Anion Gap 18 H 5-15 Blood Urea Nitrogen 11 9-23 mg/dL Creatinine 0.79 0.700-1.30 mg/dL Glomerular Filtration Rate Calc 100 >90 mL/min BUN/Creatinine Ratio 13.9 10.0-20.0 Serum Glucose 376 H 74-106 mg/dL Calcium Level 9.7 8.7-10.4 mg/dL Magnesium Level 1.8 1.6-2.6 mg/dL Total Bilirubin 0.2 0.2-1.0 mg/dL Aspartate Amino Transferase (AST) < 8 L 13-40 U/L Alanine Aminotransferase (ALT) < 9 7-40 U/L Alkaline Phosphatase 108 46-116 U/L B-Type Natriuretic Peptide 66.03 0-100 pg/mL Total Protein 7.4 5.7-8.2 g/dL Albumin 4.2 3.2-4.8 g/dL PATIENT: GEORGIANA VILLAR ACCT: [id number] UNIT: [id number] : 1960 LOC: ER ROOM / BED: / AGE / SEX: 63 / M ADM STATUS: REG ER SERVICE 25 ORDERING PHYSICIAN: OLU HEATH MD PROCEDURE(s): CXRP - CHEST PORTABLE REASON: cp ORDER NUMBER(s): [id number], ACCESSION NUMBER(s): [id number] EXAMINATION: AP portable chest radiograph CLINICAL HISTORY: cp COMPARISON: XY CHEST XRAY 1 VIEW on DOS: 04/26/24 FINDINGS: Left-sided implantable cardiac device again noted. Median sternotomy changes. Interstitial prominence. Scattered linear opacities in the lower lung collazo, more apparent on the left. No lobar consolidation identified. No definite pleural effusion or pneumothorax. The cardiomediastinal silhouette appears within normal limits given technique. IMPRESSION: Interstitial prominence is relatively nonspecific but can be seen with edema, reactive airway changes as well as atypical/viral infection. Scattered atelectasis/ scarring in the lower lung collazo. Developing infiltrates not excluded. Assessment/Plan Assessment/Plan Acute coronary syndrome Generalized weakness Pneumonia, unspecified organism Plan 1. Admit to telemetry unit 2. Breathing treatment 3. Pain control management 4. Management of fluids and electrolytes 5. Consultation for hospitalist 6. Diagnostic tests chest x-ray 7. DVT prophylaxis-on aspirin 8. Repeat labs CBC, CMP in a.m. 9. Continue with current medical management 10. Treatment plan discussed with patient and RN. Patient verbalized understanding. Plan discussed with: Patient, Other (RN) My Orders Orders - TOMÁS LEON DNP Procedure Category Date Status Time Aspirin Tablet PHA 07/23/24 In Process 10:00 Atorvastatin (Lipitor) PHA 07/22/24 In Process 22:00 Allergies DENIS 07/22/24 In Process 20:37 Code Status CODE 07/22/24 Transmitted 20:37 Sodium Chloride Lock PHA 07/22/24 In Process (Saline Lock Ns) 22:00 Oxygen Per Hour RT 07/22/24 Transmitted 20:37 Ondansetron Hcl PHA 07/22/24 In Process (Zofran) 20:45 Docusate Sodium PHA 07/22/24 In Process Capsule (Colace 20:45 Complete Blood Count LAB 07/23/24 Verified 04:00 Comprehensive LAB 07/23/24 Verified Metabolic Panel 04:00 Cardiac DIET 07/23/24 Transmitted Diet-2gna,Lofat,Lochol Breakfast Condition: Serious DENIS 07/22/24 In Process 20:37 Acetaminophen Tablet PHA 07/22/24 In Process (Tylenol Tablet) 20:45 Bedrest With Bathroom DENIS 07/22/24 In Process Privileg 20:37 Sequential DENIS 07/22/24 In Process Compression Device Tamsulosin PHA 07/23/24 In Process Hydrochloride (Flomax) 18:00 Azithromycin 500mg/ PHA 07/23/24 In Process 250ml (Zithromax 50 10:00 Azithromycin 500mg/ PHA 07/22/24 In Process 250ml (Zithromax 50 20:45 Problem List: (1) Acute coronary syndrome (2) Generalized weakness (3) Pneumonia, unspecified organism Date of Service: Jul 22, 2024 Billing Provider: TOMÁS LEON DNP Common Visit Codes: [id number] INP/OBS CARE (HIGH) TOMÁS LEON DNP Jul 22, 2024 22:42
[2024-07-22] MEDS ORDERED: NITROGLYCERIN 0.4 MG SL TAB SL PRN (22:45)
[2024-07-23] VITALS (10 sets, daily range): BP systolic 121–134; BP diastolic 65–83; PULSE 77–104; RESP 16–21; TEMP 97.3–98.4; O2SAT 95–98
[2024-07-23] MEDS ORDERED: DEXTROSE (50%) 50ML SYRG IV PRN (03:30)
[2024-07-23] MEDS: ACCU-CHEK COMFORT CURVE STRIP VI SCH (03:54)
[2024-07-23] MEDS: InsuLIN REG 1unit/0.01ml Soln (100units/ml) SC SCH (03:59)
--- NOTE | 2024-07-23 06:44 | ECG ---
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
--- NOTE | 2024-07-23 06:45 | ECG ---
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
--- NOTE | 2024-07-23 06:45 | ECG ---
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
[2024-07-23] MEDS: POTASSIUM CHL 20 Meq TABLET PO ONE (06:52)
[2024-07-23 07:45] LABS: Alkaline Phosphatase 101 U/L (46-116); Anion Gap 11 (5-15); BUN/Creatinine Ratio 21.2 (10.0-20.0); Blood Urea Nitrogen 14 mg/dL (9-23); Calcium 9.8 mg/dL (8.7-10.4); Carbon Dioxide 20 mmol/L (20-31)
[2024-07-23 07:46] LABS: Bilirubin, Total 0.4 mg/dL (0.2-1.0); Total Protein 7.1 g/dL (5.7-8.2)
[2024-07-23 07:48] LABS: Aspartate Aminotransferase 12 U/L (13-40); Chloride 105 mmol/L (98-107); Glucose 140 mg/dL (74-106); Potassium 3.9 mmol/L (3.5-5.1); Sodium 136 mmol/L (136-145)
[2024-07-23 07:53] LABS: Alanine Aminotransferase < 9 U/L (7-40)
[2024-07-23 08:20] LABS: Basophils # (auto) 0.1 10 ^3/uL (0-0.2); Basophils % (auto) 0.8 % (0.0-2.0); Eosinophils # (auto) 0.2 10 ^3/uL (0-0.8); Eosinophils % (auto) 1.9 % (0.0-7.0); Hemoglobin 13.5 g/dL (13.5-17.5); Lymphocytes # (auto) 1.3 10 ^3/uL (0.4-5.4); Lymphocytes % (auto) 12.7 % (10.0-50.0); Mean Corpuscular Hgb Conc. 32.8 g/dL (32.0-36.0); Mean Corpuscular Volume 88.4 fL (80.0-100.0); Monocytes # (auto) 0.7 10 ^3/uL (0-1.3); Monocytes % (auto) 6.9 % (0.0-12.0); Neutrophils # (auto) 7.8 10 ^3/uL (1.6-8.6); Neutrophils % (auto) 77.7 % (37.0-80.0); Nucleated Red Blood Cells % 0.1 %; Platelet Count (auto) 167 10^3/uL (140-450); Red Blood Cells 4.64 10^6/uL (4.5-5.90)
[2024-07-23] MEDS: PANTOPRAZOLE 40 MG TAB PO ONE (08:40)
[2024-07-23] MEDS: AZITHROMYCIN 500MG/ 250ML 250 ML IV SCH (09:56)
[2024-07-23] MEDS: EMPAGLIFLOZIN 10 MG TAB PO SCH (09:56)
[2024-07-23] MEDS: CLOPIDOGREL BISULFATE 75 MG TAB PO SCH (09:56)
[2024-07-23] MEDS: METOPROLOL SUCCINATE XL 50 MG TAB PO SCH (09:57)
[2024-07-23] MEDS: traMADol HCL 50 MG TAB PO PRN ×2 (09:58→14:47)
[2024-07-23] MEDS: ASPirin 81 mg TAB PO SCH (09:58)
[2024-07-23] MEDS: FUROSEMIDE 40 MG/4 ML VIAL IV SCH (09:59)
[2024-07-23] MEDS: ENOXAPARIN SOD 100 MG/1 ML SYRINGE SC SCH (09:59)
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
[2024-07-23] MEDS: traMADol HCL 50 MG TAB PO ONE (10:30)
[2024-07-23 10:32] LABS: Rapid Influenza A Negative (Negative); Rapid Influenza B Negative (Negative)
[2024-07-23 10:34] LABS: COVID19 ANTIGEN SOFIA FIA NEGATIVE (NEGATIVE)
--- NOTE | 2024-07-23 10:52 | DVH ---
Exam: US LEFT LOWER EXTREMITY ULTRASOUN Date: 07/23/2024 09:32 AM Clinical History: POSSIBLE LEFT KNEE EFFUSION Comparison: US LEFT LOWER EXTREMITY ULTRASOUN on DOS: 04/26/24 Findings: Targeted sonographic evaluation of the soft tissues of the left knee was obtained utilizing grayscale and color Doppler imaging. Trace knee IMPRESSION: Trace left knee effusion END IMPRESSION:
--- NOTE | 2024-07-23 11:28 | DVH ---
CLINICAL INDICATION: Left shoulder trauma TECHNIQUE: 3 radiographic views of the left shoulder were obtained. Comparison: XY L SHOULDER 2+ VIEW XRAY on DOS: 04/26/24, XY L SHOULDER 2+ VIEW XRAY on DOS: 04/24/24, XY L SHOULDER 2+ VIEW XRAY on DOS: 04/03/24 FINDINGS/IMPRESSION: There is no evidence of acute fracture or dislocation. Cardiac pacemaker projects over left chest wal l. Chronic left 10th rib fracture. The visualized joint space is well maintained. The alignment is anatomical. There is no radiopaque foreign body.
[2024-07-23] MEDS ORDERED: VANCOMYCIN PER PHARMACY 0 MG IV SCH (13:00)
[2024-07-23] MEDS ORDERED: INDOMETHACIN 25 MG CAP PO SCH (14:00)
[2024-07-23] MEDS: BACLOFEN 10 MG TAB PO SCH (14:46)
[2024-07-23 15:53] LABS: Amphetamine Screen, Urine Neg (NEGATIVE); Barbiturate Scree,Urine Neg (NEGATIVE); Benzodiazephine Screen, Urine Neg (NEGATIVE); Cannabinoid Screen, Urine Neg (NEGATIVE); Cocaine Screen, Urine Neg (NEGATIVE); Opiate Scree,Urine Neg (NEGATIVE); Phencyclidine Screen, Urine Neg (NEGATIVE)
--- NOTE | 2024-07-23 16:06 | DVHINCON2 ---
Date of service: Jul 23, 2024 Reason for Consultation Left knee pain History of Present Illness Mr. Alcantara is a 63-year-old male who was brought to the hospital due to complaints of chest pain for the last three days. Patient is known to our practice as he underwent a bilateral shoulder, sternoclavicular joints, and left knee I&D a few weeks ago and notes that he continues to experience pain and has been unable to bear weight on his left knee to this day. Patient is otherwise feeling well denying any other complaints or concerns during my evaluation. Past Medical History CAD, CHF, CKF, DM, High Lipids, KS, PE, V-tach Past Surgical History CABG, PTCA, Tonsillectomy, AICD, Bilateral foot amputations, bilateral shoulder I and D, sternoclavicular joint I and D, and left knee I and D Family History: Diabetes mellitus G8 MOTHER FHx: kidney disease G8 MOTHER Family History Reviewed, noncontributory to the management of this case. Social History Patient denied any smoking, EtOH, or illicit substance abuse Allergies: Coded Allergies: Hydrocodone (Verified Allergy, Severe, LEG SWELLING, 04/25/24) Codeine (Verified Allergy, Unknown, 04/24/24) Ketorolac Tromethamine (Verified Allergy, Unknown, 04/03/24) Home Meds Active Scripts Ibuprofen Micronized (Ibuprofen) 600 Mg Tab, 600 MG PO BID for 7 Days, #14 TAB Prov:TAMMY ANNE MD 04/07/24 Oxycodone HCl (Oxycodone Hydrochloride) 10 Mg Tab, 10 MG PO TIDPRN PRN for 7 Days, #21 TAB Prov:TAMMY ANNE MD 04/07/24 Oxycodone Hcl (OxyCONTIN ER Tablet) 10 Mg Tb, 1 TAB PO BID for 7 Days, #14 TAB 0 Refills Prov:TAMMY ANNE MD 04/07/24 Tamsulosin Hcl (Flomax) 0.4 Mg Cap, 0.4 MG PO QPM for 30 Days, #30 CAP 0 Refills Prov:TAMMY ANNE MD 04/07/24 Baclofen (Baclofen) 10 Mg Tab, 5 MG PO Q8HR for 30 Days, #45 TAB 0 Refills Prov:TAMMY ANNE MD 04/07/24 Reported Medications Tamsulosin HCl (Tamsulosin Hydrochloride) 0.4 Mg Cap, 0.4 MG PO, CAP 04/04/24 Current Medications Current Medications Medications (Trade) Dose Ordered Sig/Sunny Route PRN Reason Start Time Stop Time Status Last Admin Aspirin 81 mg DAILY PO 07/23/24 10:00 07/23/24 09:58 Atorvastatin Calcium (Lipitor) 10 mg HS PO 07/22/24 22:00 07/23/24 09:56 DC 07/22/24 22:09 Sodium Chloride (Saline Lock Ns) 10 ml Q8HR IV 07/22/24 22:00 07/23/24 14:00 Ondansetron HCl (Zofran) 4 mg Q4HP PRN IV NAUSEA / VOMITING 07/22/24 20:45 07/23/24 08:11 DC Docusate Sodium (Colace Capsule) 100 mg BIDPRN PRN PO FOR CONSTIPATION 07/22/24 20:45 07/23/24 08:11 DC Acetaminophen (Tylenol Tablet) 650 mg Q6HP PRN PO PAIN SCALE 1-3 OR TEMP>100.4 07/22/24 20:45 07/23/24 08:11 DC Tamsulosin HCl (Flomax) 0.4 mg QPM PO 07/23/24 18:00 07/23/24 09:33 DC Azithromycin 250 ml @ 125 mls/hr DAILY IV 07/23/24 10:00 07/23/24 09:56 Nitroglycerin (Ntrostat Sublingual) 0.4 mg Q5MINP PRN SL FOR CHEST PAIN 07/22/24 22:45 Diagnostic Test (Pha) (Accu-Chek Comfort Curve T) 1 strip IQ4HR 07/23/24 04:00 07/23/24 12:00 Insulin Human Regular (InsuLIN R) IQ4HR SC 07/23/24 04:00 07/23/24 08:43 Dextrose 50 ml UD PRN IV Blood Sugar LESS THAN 60 07/23/24 03:30 Furosemide (Lasix Injection) 40 mg DAILY IV 07/23/24 10:00 07/23/24 09:59 Enoxaparin Sodium (Lovenox) 70 mg Q12HR SC 07/23/24 10:00 Pantoprazole Sodium (Protonix Tablet) 40 mg DAILY@0600 PO 07/24/24 06:00 Tramadol HCl (Ultram) 50 mg Q6HP PRN PO MODERATE PAIN (4-6 PAIN SCALE) 07/23/24 09:15 07/23/24 10:21 DC 07/23/24 09:58 Clopidogrel Bisulfate (Plavix) 75 mg DAILY PO 07/23/24 10:00 07/23/24 09:56 Metoprolol Succinate (Toprol Xl) 25 mg DAILY PO 07/23/24 10:00 07/23/24 09:57 Tamsulosin HCl (Flomax) 0.4 mg QPM PO 07/23/24 18:00 Empaglifozin (Jardiance) 10 mg DAILY PO 07/23/24 10:00 07/23/24 09:56 Atorvastatin Calcium (Lipitor) 80 mg HS PO 07/23/24 22:00 Indomethacin (Indocin Capsule) 25 mg TID PO 07/23/24 14:00 UNV Tramadol HCl (Ultram) 100 mg Q6HP PRN PO MODERATE PAIN (4-6 PAIN SCALE) 07/23/24 16:30 07/23/24 14:47 Baclofen (Liorisal Tablet) 5 mg Q8HR PO 07/23/24 14:00 07/23/24 14:46 Vancomycin HCl 0 ml @ 0 mls/hr UD IV 07/23/24 13:00 UNV Trolamine Salicylate (Aspercreme Topical) 1 applic BID TOP 07/23/24 22:00 Acetaminophen (Tylenol Tablet) 325 mg Q6HP PO 07/23/24 18:00 Review of Systems 10 point review of systems negative except as per HPI Vital Signs Vital Signs Date Time Temp Pulse Resp B/P (MAP) Pulse Ox O2 Delivery O2 Flow Rate FiO2 07/23/24 13:24 98.4 82 18 134/83 (100) 98 98.4 07/23/24 08:00 Room Air* 0 21 Physical Exam General appearance: A&O x4 in no acute distress HEENT: Normal ENT inspection, pharynx normal, TMs normal Neck: Full range of motion, nontender, normal inspection Respiratory: Chest nontender, without accessory muscle use, no respiratory distress Cardiovascular: No edema, no JVD, normal peripheral pulses Gastrointestinal: Soft, nontender, no organomegaly. Musculoskeletal: Left knee range of motion grossly limited with pain on movement, dry scabs along the tibial spine without any active bleeding or drain age, no calf tenderness, normal capillary refill, no pedal edema. Skin: Dry, normal color, warm Lymphatic: No adenopathy Labs/Diagnostic Data Labs Test 07/23/24 14:50 07/23/24 08:45 07/23/24 08:30 07/23/24 06:36 Range/Units Urine Opiates Screen Neg NEGATIVE Urine Fentanyl Screen Neg NEGATIVE Urine Barbiturates Screen Neg NEGATIVE Urine Phencyclidine Screen Neg NEGATIVE Urine Amphetamines Screen Neg NEGATIVE Urine Benzodiazepines Screen Neg NEGATIVE Urine Cocaine Screen Neg NEGATIVE Urine Cannabinoids Screen Neg NEGATIVE Influenza Type A Antigen Negative Negative Influenza Type B Antigen Negative Negative SARS-CoV-2 Antigen (Rapid) Negative NEGATIVE POC Glucose 150 H 70-106 mg/dl White Blood Count 10.0 4.4-10.8 10^3/uL Red Blood Count 4.64 4.5-5.90 10^6/uL Hemoglobin 13.5 13.5-17.5 g/dL Hematocrit 41.0 41.0-53.0 % Mean Corpuscular Volume 88.4 80.0-100.0 fL Mean Corpuscular Hemoglobin 29.0 28.0-32.0 pg Mean Corpuscular Hemoglobin Concent 32.8 32.0-36.0 g/dL Red Cell Distribution Width 16.0 H 11.8-14.3 % Platelet Count 167 140-450 10^3/uL Mean Platelet Volume 8.1 6.9-10.8 fL Neutrophils (%) (Auto) 77.7 37.0-80.0 % Lymphocytes (%) (Auto) 12.7 10.0-50.0 % Monocytes (%) (Auto) 6.9 0.0-12.0 % Eosinophils (%) (Auto) 1.9 0.0-7.0 % Basophils (%) (Auto) 0.8 0.0-2.0 % Neutrophils # (Auto) 7.8 1.6-8.6 10 ^3/uL Lymphocytes # (Auto) 1.3 0.4-5.4 10 ^3/uL Monocytes # (Auto) 0.7 0-1.3 10 ^3/uL Eosinophils # (Auto) 0.2 0-0.8 10 ^3/uL Basophils # (Auto) 0.1 0-0.2 10 ^3/uL Nucleated Red Blood Cells 0.1 % Sodium Level 136 136-145 mmol/L Potassium Level 3.9 3.5-5.1 mmol/L Chloride Level 105 98-107 mmol/L Carbon Dioxide Level 20 20-31 mmol/L Anion Gap 11 5-15 Blood Urea Nitrogen 14 9-23 mg/dL Creatinine 0.66 L 0.700-1.30 mg/dL Glomerular Filtration Rate Calc 106 >90 mL/min BUN/Creatinine Ratio 21.2 H 10.0-20.0 Serum Glucose 140 #H 74-106 mg/dL Hemoglobin A1c 7.9 H <5.7 % A1C Uric Acid 4.9 3.7-9.2 mg/dL Calcium Level 9.8 8.7-10.4 mg/dL Total Bilirubin 0.4 0.2-1.0 mg/dL Aspartate Amino Transferase (AST) 12 L 13-40 U/L Alanine Aminotransferase (ALT) < 9 7-40 U/L Alkaline Phosphatase 101 46-116 U/L Total Protein 7.1 5.7-8.2 g/dL Albumin 4.0 3.2-4.8 g/dL Test 07/22/24 22:37 07/22/24 20:30 07/22/24 19:41 Range/Units Troponin I High Sensitivity 4 </=54 ng/L Urine Color Light-yellow Yellow Urine Clarity Clear Clear Urine pH 5.5 5.0-9.0 Urine Specific [place] 1.018 1.001-1.035 Urine Protein 1+ H Negative Urine Ketones Trace Negative Urine Blood Trace H Negative /uL Urine Nitrite Negative Negative Urine Bilirubin Negative Negative Urine Urobilinogen Normal Negative mg/dL Urine Leukocyte Esterase Negative Negative /uL Urine RBC 1 0 - 3 /hpf Urine Microscopic WBC 2 0-3 /HPF Urine Squamous Epithelial Cells Few <5 /hpf Urine Bacteria Few H None Seen /hpf Urine Granular Casts Few 0 /lpf Urine Mucus Few None Seen Urine Glucose 4+ H Normal mg/dL Magnesium Level 1.8 1.6-2.6 mg/dL B-Type Natriuretic Peptide 66.03 0-100 pg/mL Microbiology Date/Time Source Procedure Growth Status 07/23/24 08:45 Nose MRSA Screen - Final Methicillin Resistant S.aureus Complete Left lower extremity ultrasound reviewed and demonstrated: Trace left knee effusion Assessment Left knee osteoarthritis Plan/Recommendation I had a lengthy discussion with the patient and after reviewing his case with Dr. Adams we have recommended an x-ray of his left knee for further evaluation as well as an aspiration with Interventional Radiology and fluid analysis for cultures, aerobic and anaerobic, cell count, and Gram stain to evaluate for any possible recurrent infection. We will reconvene with the patient once the above-mentioned studies have been completed to discuss the results and determine the course of action. Patient understood and agreed. Please contact ortho if there are any changes in the patient's symptoms are any further questions or concerns. Plan discussed with: Patient OLI SAUCEDO Jul 23, 2024 16:06
--- NOTE | 2024-07-23 16:27 | DVH ---
CLINICAL INDICATION: Left knee pain and limited ROM TECHNIQUE: XY L KNEE 2V XRAY Comparison: XY L KNEE 3V XRAY on DOS: 04/24/24, XY R KNEE 3V XRAY on DOS: 04/24/24 FINDINGS/IMPRESSION: : Cortical irregularity with possible subtle fracture of the medial tibial plateau. Vascular calcificat ion. Severe narrowing of the lateral compartment of the knee joint. Vascular calcification. Mild elizabeth nt effusion. . IMPRESSION: Possible medial tibial plateau fracture on the frontal view. Severe narrowing of the lateral compartment of the knee joint. Mild joint effusion CT scan recommended for further assessment. Soft tissues are unremarkable.
--- NOTE | 2024-07-23 16:30 | CONS ---
Pharmacy Clinical Information: Most recent QTc = 497, consider changing azithromycin to doxycycline JUDITH NOONAN PHARMACIST Jul 23, 2024 16:30
[2024-07-23] MEDS: VANCOMYCIN 1.25gm/250mL PREMIX or KIT IV ONE (17:34)
[2024-07-23] MEDS: HYDROmorphone HCL 2 MG/ML VL/or syr IV ONE (17:43)
[2024-07-23] MEDS: TAMSULOSIN HYDROCHLORIDE 0.4 MG CAP PO SCH (17:44)
[2024-07-23] MEDS ORDERED: TAMSULOSIN HYDROCHLORIDE 0.4 MG CAP PO SCH (18:00)
[2024-07-23] MEDS: ATORVASTATIN 20 MG TAB PO SCH (21:24)
[2024-07-23] MEDS: TROLAMINE SALICYLATE 10% TOP CREAM TOP SCH (22:00)
[2024-07-23] MEDS: MUPIROCIN 2% OINT 15gm or 22gm FOR MRSA NARES EACHNOSTRI SCH (22:00)
[2024-07-24] VITALS (7 sets, daily range): BP systolic 95–125; BP diastolic 59–77; PULSE 63–77; RESP 18–20; TEMP 97.1–97.8; O2SAT 90–97
[2024-07-24] MEDS: ACETAMINOPHEN 325 MG TAB PO SCH
[2024-07-24] MEDS: PANTOPRAZOLE 40 MG TAB PO SCH (06:16)
[2024-07-24] MEDS: VANCOMYCIN 1GM/250ML KIT 250 ML IV SCH (06:18)
[2024-07-24 06:44] LABS: Basophils # (auto) 0.1 10 ^3/uL (0-0.2); Basophils % (auto) 0.8 % (0.0-2.0); Eosinophils # (auto) 0.2 10 ^3/uL (0-0.8); Eosinophils % (auto) 2.9 % (0.0-7.0); Hematocrit 39.5 % (41.0-53.0); Hemoglobin 13.3 g/dL (13.5-17.5); Lymphocytes # (auto) 1.1 10 ^3/uL (0.4-5.4); Lymphocytes % (auto) 14.6 % (10.0-50.0); Mean Corpuscular Hemoglobin 29.5 pg (28.0-32.0); Mean Corpuscular Hgb Conc. 33.7 g/dL (32.0-36.0); Mean Corpuscular Volume 87.7 fL (80.0-100.0); Monocytes # (auto) 0.5 10 ^3/uL (0-1.3); Monocytes % (auto) 6.2 % (0.0-12.0); Neutrophils # (auto) 5.8 10 ^3/uL (1.6-8.6); Neutrophils % (auto) 75.5 % (37.0-80.0); Platelet Count (auto) 187 10^3/uL (140-450); White Blood Cell 7.7 10^3/uL (4.4-10.8)
[2024-07-24 07:03] LABS: INR 1.01 (0.9-1.15); Partial Thromboplastin Time 23.8 SEC (24.5-34.5); Prothrombin Time 10.7 sec (9.3-11.8)
[2024-07-24 07:15] LABS: Albumin 4.1 g/dL (3.2-4.8); Alkaline Phosphatase 94 U/L (46-116); Anion Gap 10 (5-15); BUN/Creatinine Ratio 23.4 (10.0-20.0); Blood Urea Nitrogen 18 mg/dL (9-23); Calcium 9.7 mg/dL (8.7-10.4); Carbon Dioxide 25 mmol/L (20-31); Chloride 101 mmol/L (98-107); Magnesium 1.9 mg/dL (1.6-2.6); Potassium 3.8 mmol/L (3.5-5.1)
[2024-07-24 07:16] LABS: Bilirubin, Total 0.6 mg/dL (0.2-1.0); Total Protein 7.1 g/dL (5.7-8.2)
[2024-07-24 07:20] LABS: Alanine Aminotransferase < 9 U/L (7-40); Aspartate Aminotransferase 13 U/L (13-40); Glucose 135 mg/dL (74-106); Sodium 136 mmol/L (136-145)
[2024-07-24] MEDS ORDERED: DOXYCYCLINE 100MG/100ML 100 ML IV SCH (09:15)
[2024-07-24] MEDS: DOXYCYCLINE 100MG/100ML 100 ML IV SCH (12:23)
[2024-07-24] MEDS: HYDROmorphone HCL 2 MG/ML VL/or syr IV ONE (16:57)
[2024-07-24] MEDS: APIXABAN 5 MG TAB PO ONE (16:58)
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
[2024-07-24] MEDS: APIXABAN 5 MG TAB PO SCH (21:09)
[2024-07-25] VITALS (9 sets, daily range): BP systolic 98–127; BP diastolic 45–76; PULSE 60–65; RESP 16–20; TEMP 97.2–98.2; O2SAT 95–99
[2024-07-25 06:38] LABS: Basophils # (auto) 0.1 10 ^3/uL (0-0.2); Basophils % (auto) 0.9 % (0.0-2.0); Eosinophils # (auto) 0.2 10 ^3/uL (0-0.8); Eosinophils % (auto) 2.8 % (0.0-7.0); Hematocrit 37.2 % (41.0-53.0); Hemoglobin 12.3 g/dL (13.5-17.5); Lymphocytes # (auto) 0.9 10 ^3/uL (0.4-5.4); Lymphocytes % (auto) 14.9 % (10.0-50.0); Mean Corpuscular Hemoglobin 29.3 pg (28.0-32.0); Mean Corpuscular Hgb Conc. 33.2 g/dL (32.0-36.0); Mean Corpuscular Volume 88.1 fL (80.0-100.0); Monocytes # (auto) 0.5 10 ^3/uL (0-1.3); Monocytes % (auto) 7.8 % (0.0-12.0); Neutrophils # (auto) 4.6 10 ^3/uL (1.6-8.6); Neutrophils % (auto) 73.6 % (37.0-80.0); Nucleated Red Blood Cells % 0.1 %; Platelet Count (auto) 189 10^3/uL (140-450); Red Blood Cells 4.22 10^6/uL (4.5-5.90); Red Cell Distribution Width 15.7 % (11.8-14.3); White Blood Cell 6.3 10^3/uL (4.4-10.8)
[2024-07-25 06:53] LABS: Alkaline Phosphatase 90 U/L (46-116); Anion Gap 10 (5-15); BUN/Creatinine Ratio 25.8 (10.0-20.0); Blood Urea Nitrogen 17 mg/dL (9-23); Calcium 9.8 mg/dL (8.7-10.4); Carbon Dioxide 23 mmol/L (20-31); Chloride 103 mmol/L (98-107); Potassium 3.7 mmol/L (3.5-5.1)
[2024-07-25 06:54] LABS: Alanine Aminotransferase < 9 U/L (7-40); Aspartate Aminotransferase 10 U/L (13-40); Bilirubin, Total 0.5 mg/dL (0.2-1.0); Glucose 127 mg/dL (74-106); Sodium 136 mmol/L (136-145); Total Protein 6.8 g/dL (5.7-8.2)
[2024-07-25 08:02] LABS: CRP High Sensitivity 0.99 mg/dL (<1.0)
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
[2024-07-25] MEDS ORDERED: HYDROmorphone HCL 2 MG/ML VL/or syr IV PRN (13:00)
--- NOTE | 2024-07-25 13:36 | DVHPN2 ---
Progress Note - Dictate Date Seen: Jul 25, 2024 Medical Necessity Reason Pt with a Central, PICC or Fol: No Subjective Patient was lying comfortably in bed during my evaluation reports no changes since my last evaluation with him and reports continued left knee pain and limited range of motion. Patient reports that someone came to ultrasound his knee but no fluid was aspirated. Patient is otherwise feeling well denying any other complaint or concern during my evaluation. vital signs Vital Sign Date Time Temp Pulse Resp B/P (MAP) Pulse Ox O2 Delivery O2 Flow Rate FiO2 07/25/24 13:00 97.2 61 20 114/76 (89) 97 97.2 07/25/24 08:05 Room Air* 0 21 Total Intake and Output 07/24/24 07/24/24 07/25/24 15:00 23:00 07:00 Intake Total 320 ml 650 ml 900 ml Output Total 400 ml 650 ml Balance 320 ml 250 ml 250 ml medications Current Medications Medications Dose Ordered Sig/Sunny Route Start Time Stop Time Status Last Admin Dose Admin Aspirin 81 mg DAILY PO 07/23/24 10:00 07/25/24 09:08 81 MG Sodium Chloride 10 ml Q8HR IV 07/22/24 22:00 07/25/24 06:09 10 ML Nitroglycerin 0.4 mg Q5MINP PRN SL 07/22/24 22:45 Diagnostic Test (Pha) 1 strip IQ4HR 07/23/24 04:00 07/25/24 12:12 1 STRIP Insulin Human Regular IQ4HR SC 07/23/24 04:00 07/25/24 09:20 2 UNITS Dextrose 50 ml UD PRN IV 07/23/24 03:30 Enoxaparin Sodium 70 mg Q12HR SC 07/23/24 10:00 Hold Pantoprazole Sodium 40 mg DAILY@0600 PO 07/24/24 06:00 07/25/24 06:09 40 MG Clopidogrel Bisulfate 75 mg DAILY PO 07/23/24 10:00 07/25/24 09:13 75 MG Metoprolol Succinate 25 mg DAILY PO 07/23/24 10:00 07/25/24 09:13 25 MG Tamsulosin HCl 0.4 mg QPM PO 07/23/24 18:00 07/24/24 16:57 0.4 MG Empaglifozin 10 mg DAILY PO 07/23/24 10:00 07/25/24 09:13 10 MG Atorvastatin Calcium 80 mg HS PO 07/23/24 22:00 07/24/24 21:10 80 MG Baclofen 5 mg Q8HR PO 07/23/24 14:00 07/25/24 06:08 5 MG Vancomycin HCl 0 ml @ 0 mls/hr UD IV 07/23/24 13:00 Trolamine Salicylate 1 applic BID TOP 07/23/24 22:00 07/25/24 09:20 1 APPLIC Acetaminophen 325 mg Q6HP PO 07/23/24 18:00 07/25/24 06:08 325 MG Mupirocin 1 applic BID EACHNOSTRI 07/23/24 22:00 07/28/24 21:59 07/25/24 09:20 1 APPLIC Vancomycin HCl 250 ml @ 250 mls/hr Q12H IV 07/24/24 06:00 07/25/24 06:09 250 MLS/HR Doxycycline Hyclate 100 ml @ 50 mls/hr Q12H IV 07/24/24 13:00 07/25/24 12:42 50 MLS/HR Apixaban 5 mg BID PO 07/24/24 22:00 07/25/24 09:08 5 MG Hydromorphone HCl 1 mg Q4HPRN PRN IV 07/25/24 13:00 Oxycodone/ Acetaminophen 2 tab Q4HP PRN PO 07/25/24 13:00 Lactulose 30 ml Q6HPRN PRN PO 07/25/24 13:30 UNV objective General appearance: A&O x4 in no acute distress HEENT: Normal ENT inspection, pharynx normal, TMs normal Neck: Full range of motion, nontender, normal inspection Respiratory: Chest nontender, without accessory muscle use, no respiratory distress Cardiovascular: No edema, no JVD, normal peripheral pulses Gastrointestinal: Soft, nontender, no organomegaly. Musculoskeletal: Left knee range of motion grossly limited with pain on movement, well-healing scab along the tibial spine, no calf tenderness, normal capillary refill, no pedal edema, neurovascularly intact. Skin: Dry, normal color, warm Lymphatic: No adenopathy laboratory and microbiology Laboratory Tests 07/25/24 05:18 Test 07/25/24 05:18 Range/Units Serum Glucose 127 H 74-106 mg/dL Assessment/Plan Left knee osteoarthritis I had a lengthy discussion with the patient and informed him that no aspiration was done as there was not enough fluid found on ultrasound to aspirate and given his physical exam findings showing no overt swelling or redness our clinical suspicion for septic arthritis is low and believe it might be in acute exacerbation of his left knee osteoarthritis and advised to continue with pain medication for pain control as well as antibiotics. We also recommend wound consult as well as a possible consultation by General surgery for evaluation for a possible ulcer formation along the anterior tibial spine. We will continue observing the patient and please contact ortho if there are any changes in the patient's symptoms or if there are any further questions or concerns. He understood and agreed. Thank you for allowing us to participate in the care of your patient. Plan discussed with: Patient OLI SAUCEDO Jul 25, 2024 13:36
[2024-07-25] MEDS: HYDROmorphone HCL 2 MG/ML VL/or syr IV PRN (14:22)
--- NOTE | 2024-07-25 16:42 | DVH ---
Procedure: CT LEFT LOWER EXTREMITY W/O CON 07/25/2024 01:18 PM Indication: probable septic arthritis Comparison Study: US LEFT LOWER EXTREMITY ULTRASOUN on DOS: 07/23/24, US LEFT LOWER EXTREMITY ULTRASO UN on DOS: 04/26/24, CT CT L KNEE WO CONTRAST on DOS: 04/25/24 Technique: Axial images left lower extremity from distal femur to the ankle were obtained and reforma tted in coronal and sagittal planes. All CT scans at this medical facility are performed using dose modulation techniques as appropriate t o a performed exam including the following: Automated exposure control was utilized; adjustment of th e MA and/or KV according to patient size; and use of iterative reconstruction technique. CT Dose: CTDI volume is 25.24 mGy. Dose-length product is 1748.99 mGy*cm FINDINGS: Erosion of the medial and lateral femoral condyles and tibial plateau noted with resultant irregulari ty of the articular surfaces. Air bubbles are seen in the medial joint space. Small suprapatellar elizabeth nt effusion and synovial thickening noted. Patella is unremarkable. Diffuse atherosclerotic calcifica tion noted. The ankle joint is unremarkable. IMPRESSION: 1. Findings concerning for septic joint with erosion of the medial and lateral compartments articular surfaces. Small joint effusion synovial thickening noted. Recommend further evaluation with joint fluid aspiration, cytology and culture. 2. Peripheral arterial disease.
[2024-07-25] MEDS: OXYCODONE W/ ACETAMINOPHEN 5/325MG TABLET PO PRN (21:11)
[2024-07-26] VITALS (8 sets, daily range): BP systolic 97–144; BP diastolic 56–75; PULSE 60–94; RESP 17–20; TEMP 97.5–98.3; O2SAT 91–100
[2024-07-26] MEDS: DOXYCYCLINE 100MG/100ML 100 ML IV SCH (00:50)
[2024-07-26] MEDS: LACTULOSE 20Gm/30ML SOLN PO PRN (05:35)
[2024-07-26 06:30] LABS: Basophils # (auto) 0 10 ^3/uL (0-0.2); Eosinophils # (auto) 0.1 10 ^3/uL (0-0.8); Eosinophils % (auto) 2.7 % (0.0-7.0); Hematocrit 38.4 % (41.0-53.0); Hemoglobin 12.7 g/dL (13.5-17.5); Lymphocytes # (auto) 0.8 10 ^3/uL (0.4-5.4); Lymphocytes % (auto) 15.8 % (10.0-50.0); Mean Corpuscular Hemoglobin 29.4 pg (28.0-32.0); Mean Corpuscular Hgb Conc. 33.2 g/dL (32.0-36.0); Mean Corpuscular Volume 88.5 fL (80.0-100.0); Monocytes # (auto) 0.5 10 ^3/uL (0-1.3); Monocytes % (auto) 10.4 % (0.0-12.0); Neutrophils # (auto) 3.4 10 ^3/uL (1.6-8.6); Neutrophils % (auto) 70.1 % (37.0-80.0); Nucleated Red Blood Cells % 0.1 %; Platelet Count (auto) 184 10^3/uL (140-450); Red Blood Cells 4.33 10^6/uL (4.5-5.90); White Blood Cell 4.8 10^3/uL (4.4-10.8)
[2024-07-26 06:37] LABS: Anion Gap 9 (5-15); Calcium 9.9 mg/dL (8.7-10.4); Carbon Dioxide 24 mmol/L (20-31); Chloride 103 mmol/L (98-107); Potassium 3.6 mmol/L (3.5-5.1); Sodium 136 mmol/L (136-145)
[2024-07-26 06:41] LABS: BUN/Creatinine Ratio 24.2 (10.0-20.0); Blood Urea Nitrogen 16 mg/dL (9-23)
[2024-07-26 06:42] LABS: Glucose 123 mg/dL (74-106)
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
--- NOTE | 2024-07-26 11:24 | DVH ---
US US GUIDANCE FOR NEEDLE PLACEME, HISTORY: FLUID PROCEDURE: An informed consent was obtained. The patient was placed supine on the interventional tabl e. The left knee fluid collection was localized with ultrasound and the overlying skin prepped with chlorhexidine which was allowed to dry and draped in the usual sterile fashion. Time out was performe d and infiltrated with 1% Xylocaine. With US guidance, 20 gauge needle was advanced into the left kn ee joint fluid. Approximately 5 cc of thick serosanguinous fluid was aspirated. The needle was miguel dahiana. No immediate complication was identified. FINDINGS: Limited US scan of through the left knee demonstrates a joint effusion fluid collection. Co llection appears complex. IMPRESSION: US guided left knee arthrocentesis with 5 mL removed for laboratory analysis.
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
--- NOTE | 2024-07-26 15:56 | MEDREC ---
[facility] Intervention Section I [facility] Intervention: Review courses of therapy (PLEASE CONSIDER ADDING / SWITCHING ANTIBIOTIC TO COVFER GRAM NEGATIVE RODS FOUND IN THE WOUND CULTURE) JASBIR GONZALEZ PHARMACIST Jul 26, 2024 15:56
[2024-07-26 20:33] LABS: Body Fluid Polymorphonuclear 90 % (0-25); Body Fluid Red Blood Cells 883000 CUMM (0-2000); Body Fluid White Blood Cells 39000 CUMM (0-200)
[2024-07-27] VITALS (19 sets, daily range): BP systolic 85–137; BP diastolic 56–71; PULSE 60–72; RESP 12–19; TEMP 97.4–98.4; O2SAT 95–100
[2024-07-27 07:45] LABS: Basophils # (auto) 0.1 10 ^3/uL (0-0.2); Basophils % (auto) 0.9 % (0.0-2.0); Eosinophils # (auto) 0.1 10 ^3/uL (0-0.8); Eosinophils % (auto) 1.9 % (0.0-7.0); Hematocrit 38.4 % (41.0-53.0); Hemoglobin 12.7 g/dL (13.5-17.5); Lymphocytes % (auto) 15.5 % (10.0-50.0); Mean Corpuscular Hemoglobin 29.3 pg (28.0-32.0); Mean Corpuscular Hgb Conc. 33.1 g/dL (32.0-36.0); Mean Corpuscular Volume 88.7 fL (80.0-100.0); Monocytes # (auto) 0.8 10 ^3/uL (0-1.3); Monocytes % (auto) 11.9 % (0.0-12.0); Neutrophils # (auto) 4.5 10 ^3/uL (1.6-8.6); Neutrophils % (auto) 69.8 % (37.0-80.0); Nucleated Red Blood Cells % 0.2 %; Platelet Count (auto) 198 10^3/uL (140-450); Red Blood Cells 4.33 10^6/uL (4.5-5.90); Red Cell Distribution Width 16.5 % (11.8-14.3); White Blood Cell 6.4 10^3/uL (4.4-10.8)
[2024-07-27 09:18] LABS: Anion Gap 14 (5-15); Carbon Dioxide 17 mmol/L (20-31); Chloride 108 mmol/L (98-107); Potassium 3.6 mmol/L (3.5-5.1); Sodium 139 mmol/L (136-145)
[2024-07-27 09:19] LABS: Calcium 9.9 mg/dL (8.7-10.4)
[2024-07-27 09:24] LABS: BUN/Creatinine Ratio 16.9 (10.0-20.0); Blood Urea Nitrogen 12 mg/dL (9-23)
[2024-07-27 09:28] LABS: Glucose 156 mg/dL (74-106)
[2024-07-27] MEDS: cefTRIAXone 1GM/50ML D5W 50 ML IV SCH (09:44)
[2024-07-27] MEDS: MIDAZOLAM HCL 2MG/2ML 2ml VIAL (1mg/ml) IV ONE (11:45)
[2024-07-27] MEDS: fentaNYL CITRATE 100 MCG/2 ML VL IV ONE (11:45)
[2024-07-27] MEDS: LIDOCAINE VISCOUS 2% 15ML UD PO ONE (11:45)
--- NOTE | 2024-07-27 12:55 | DVHPN2 ---
Progress Note Date Seen: Jul 27, 2024 Medical Necessity Reason Pt with a Central, PICC or Fol: No Subjective Patient reports: Feels better Other Systems: sp naz Objective vital signs Vital Sign Date Time Temp Pulse Resp B/P (MAP) Pulse Ox O2 Delivery O2 Flow Rate FiO2 07/27/24 09:46 67 17 119/67 07/27/24 09:00 98.0 99 98.0 07/26/24 20:00 Room Air* 0 21 Total Intake and Output 07/26/24 07/26/24 07/27/24 15:00 23:00 07:00 Intake Total 400 ml 1610 ml 800 ml Output Total 750 ml 820 ml Balance 400 ml 860 ml -20 ml medications Current Medications Medications Dose Ordered Sig/Sunny Route Start Time Stop Time Status Last Admin Dose Admin Aspirin 81 mg DAILY PO 07/23/24 10:00 07/27/24 09:44 81 MG Sodium Chloride 10 ml Q8HR IV 07/22/24 22:00 07/27/24 05:58 10 ML Diagnostic Test (Pha) 1 strip IQ4HR 07/23/24 04:00 07/27/24 07:26 1 STRIP Insulin Human Regular IQ4HR SC 07/23/24 04:00 07/27/24 07:26 6 UNITS Dextrose 50 ml UD PRN IV 07/23/24 03:30 Pantoprazole Sodium 40 mg DAILY@0600 PO 07/24/24 06:00 07/26/24 05:36 40 MG Metoprolol Succinate 25 mg DAILY PO 07/23/24 10:00 07/27/24 09:45 25 MG Tamsulosin HCl 0.4 mg QPM PO 07/23/24 18:00 07/26/24 17:33 0.4 MG Empaglifozin 10 mg DAILY PO 07/23/24 10:00 07/27/24 09:45 10 MG Atorvastatin Calcium 80 mg HS PO 07/23/24 22:00 07/26/24 21:27 80 MG Baclofen 5 mg Q8HR PO 07/23/24 14:00 07/26/24 21:28 5 MG Vancomycin HCl 0 ml @ 0 mls/hr UD IV 07/23/24 13:00 Trolamine Salicylate 1 applic BID TOP 07/23/24 22:00 07/27/24 10:01 1 APPLIC Acetaminophen 325 mg Q6HP PO 07/23/24 18:00 07/26/24 00:57 325 MG Vancomycin HCl 250 ml @ 250 mls/hr Q12H IV 07/24/24 06:00 07/27/24 05:58 250 MLS/HR Apixaban 5 mg BID PO 07/24/24 22:00 07/27/24 09:45 5 MG Hydromorphone HCl 1 mg Q4HPRN PRN IV 07/25/24 13:00 07/27/24 09:46 1 MG Oxycodone/ Acetaminophen 2 tab Q4HP PRN PO 07/25/24 13:00 07/25/24 21:11 2 TAB Lactulose 30 ml Q6HPRN PRN PO 07/25/24 13:30 07/26/24 05:35 30 ML Ceftriaxone Sodium 50 ml @ 100 mls/hr DAILY@09 IV 07/27/24 09:00 07/27/24 09:44 100 MLS/HR Examination: GENERAL:Abnormal, HEENT:Abnormal, LUNGS:Abnormal, CVS:Abnormal, ABDOMEN:Abnormal laboratory and microbiology Laboratory Tests 07/27/24 06:42 Test 07/27/24 06:42 Range/Units Serum Glucose 156 H 74-106 mg/dL Microbiology Date/Time Source Procedure Growth Status 07/26/24 11:00 Knee Fluid Left Gram Stain - Final Resulted 07/26/24 11:00 Knee Fluid Left Body Fluid Culture - Preliminary Resulted 07/24/24 21:22 Sacrum Gram Stain Pending Resulted 07/24/24 21:22 Wound Culture - Preliminary Proteus mirabilis Resulted 07/23/24 14:50 Voided Urine Urine Culture - Final Complete 07/23/24 14:26 Blood Blood Culture - Final Staphylococcus epidermidis Complete Problem List/Assessment/Plan Problem List/Assessment/Plan cad r/o endocarditis bacteremia frailty s/p naz--- no valvular vegetation noted, there is small amount of throbus vs vegetation <2mm in size on RA lead, i would cont abx per ID recommendations at this time cont blood cx monitoring Plan discussed with: Patient Dietary Evaluation Review Comments: tight DM controlled with a CCHO-75 diet. Consider Daniel BID if no renal failure. consider Glucerna BID PO for nutrition supplements Expected Outcomes/Goals: controlled DM, gradually healed wounds, gradual weight gain. Date of Service: Jul 27, 2024 Billing Provider: JP PAGE MD Common Visit Codes: NOT BILLABLE JP PAGE MD Jul 27, 2024 12:55
--- NOTE | 2024-07-27 13:43 | DVHOP2 ---
Operative Report After informed consent was obtained, risks, benefits, complications, alternatives were discussed in details with the patient who agrees with the procedure done. The beginning of the procedure the nasopharynx was anesthetized using, motion solution of 2% of 20 cc xylocaine. Patient was gargling get and then he swallow it. Then a mouth guard was placed conscious sedation obtained using25 mcg of fentanyl as well as a mg midazolam. Standard RYAN probe was ad vanced to the mid esophageal area and standard pictures including four-chamber view, three chamber view two chamber views and anteflexed and retroflexed fashion were obtained findings were as follows: 1. [id number] reduced left ventricular systolic function estimated ejection fraction of 45% there is anteroseptal and septal wall hypokinesia. 2. Normal right ventricular size and dimension. 3. Normal biatrial size and dimension. 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 4. The aortic valve is mildly thickened no evidence of vegetation or thrombus. 5. The mitral valve is mildly thickened there is mild mitral valve regurgitation. No evidence of vegetation or masses was detected with the mitral valve leaflets. 6. Tricuspid valve has mild to moderate tricuspid valve regurgitation. There is an ICD lead seen in the right ventricular cavity traversing the right atrium and the tricuspid valve. 7. The pulmonary valve is grossly normal. 8. No pericardial effusion. 9. Normal left atrial appendage structure and function. 10. Bubble study was negative for intra-atrial shunting. 11. Normal pulmonary vein connections and numbers. 12. The visualized part of the aorta shows no evidence of dissection or aortic root dilatation. 13. small <2 mm vegetation vs thrombus noted on RA lead in RA, RV led appears normal and TV is stable without endocarditis, JP PAGE MD Jul 27, 2024 13:43
[2024-07-27] MEDS: MUPIROCIN 2% OINT 15gm or 22gm TOP ONE (15:45)
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
[2024-07-27] MEDS: INDOMETHACIN 25 MG CAP PO ONE (19:02)
[2024-07-27] MEDS: DAPTOmycin 500 MG in SODIUM CHL 0.9% 50 ML IV SCH (20:07)
--- NOTE | 2024-07-27 20:40 | DVHINCON2 ---
Date of service: Jul 27, 2024 Family History: Diabetes mellitus G8 MOTHER FHx: kidney disease G8 MOTHER Allergies: Coded Allergies: Hydrocodone (Verified Allergy, Severe, LEG SWELLING, 04/25/24) Codeine (Verified Allergy, Unknown, 04/24/24) Ketorolac Tromethamine (Verified Allergy, Unknown, 04/03/24) Home Meds Active Scripts Ibuprofen Micronized (Ibuprofen) 600 Mg Tab, 600 MG PO BID for 7 Days, #14 TAB Prov:TAMMY ANNE MD 04/07/24 Oxycodone HCl (Oxycodone Hydrochloride) 10 Mg Tab, 10 MG PO TIDPRN PRN for 7 Days, #21 TAB Prov:TAMMY ANNE MD 04/07/24 Oxycodone Hcl (OxyCONTIN ER Tablet) 10 Mg Tb, 1 TAB PO BID for 7 Days, #14 TAB 0 Refills Prov:TAMMY ANNE MD 04/07/24 Tamsulosin Hcl (Flomax) 0.4 Mg Cap, 0.4 MG PO QPM for 30 Days, #30 CAP 0 Refills Prov:TAMMY ANNE MD 04/07/24 Baclofen (Baclofen) 10 Mg Tab, 5 MG PO Q8HR for 30 Days, #45 TAB 0 Refills Prov:TAMMY ANNE MD 04/07/24 Reported Medications Tamsulosin HCl (Tamsulosin Hydrochloride) 0.4 Mg Cap, 0.4 MG PO, CAP 04/04/24 Current Medications Current Medications Medications (Trade) Dose Ordered Sig/Sunny Route PRN Reason Start Time Stop Time Status Last Admin Ceftriaxone Sodium 50 ml @ 100 mls/hr DAILY@ IV 07/27/24 09:00 07/27/24 09:44 Mupirocin (Bactroban 2% Ointment) 1 applic BID TOP 07/27/24 22:00 Indomethacin (Indocin Capsule) 25 mg TID PO 07/27/24 22:00 Daptomycin 500 mg/ Sodium Chloride 50 ml @ 100 mls/hr DAILY@1999 IV 07/27/24 20:00 07/27/24 20:07 Vital Signs Vital Signs Date Time Temp Pulse Resp B/P (MAP) Pulse Ox O2 Delivery O2 Flow Rate FiO2 07/27/24 17:07 63 16 124/68 07/27/24 17:00 97.4 99 97.4 07/27/24 08:00 Room Air* 0 21 Labs/Diagnostic Data Labs Test 07/27/24 20:05 07/27/24 17:44 07/27/24 06:42 07/26/24 11:00 Range/Units POC Glucose 292 H 70-106 mg/dl White Blood Count 6.4 # 4.4-10.8 10^3/uL Red Blood Count 4.33 L 4.5-5.90 10^6/uL Hemoglobin 12.7 L 13.5-17.5 g/dL Hematocrit 38.4 L 41.0-53.0 % Mean Corpuscular Volume 88.7 80.0-100.0 fL Mean Corpuscular Hemoglobin 29.3 28.0-32.0 pg Mean Corpuscular Hemoglobin Concent 33.1 32.0-36.0 g/dL Red Cell Distribution Width 16.5 H 11.8-14.3 % Platelet Count 198 140-450 10^3/uL Mean Platelet Volume 8.0 6.9-10.8 fL Neutrophils (%) (Auto) 69.8 37.0-80.0 % Lymphocytes (%) (Auto) 15.5 10.0-50.0 % Monocytes (%) (Auto) 11.9 0.0-12.0 % Eosinophils (%) (Auto) 1.9 0.0-7.0 % Basophils (%) (Auto) 0.9 0.0-2.0 % Neutrophils # (Auto) 4.5 1.6-8.6 10 ^3/uL Lymphocytes # (Auto) 1.0 0.4-5.4 10 ^3/uL Monocytes # (Auto) 0.8 0-1.3 10 ^3/uL Eosinophils # (Auto) 0.1 0-0.8 10 ^3/uL Basophils # (Auto) 0.1 0-0.2 10 ^3/uL Nucleated Red Blood Cells 0.2 % Sodium Level 139 136-145 mmol/L Potassium Level 3.6 3.5-5.1 mmol/L Chloride Level 108 H 98-107 mmol/L Carbon Dioxide Level 17 L 20-31 mmol/L Anion Gap 14 5-15 Blood Urea Nitrogen 12 9-23 mg/dL Creatinine 0.71 0.700-1.30 mg/dL Glomerular Filtration Rate Calc 104 >90 mL/min BUN/Creatinine Ratio 16.9 10.0-20.0 Serum Glucose 156 H 74-106 mg/dL Calcium Level 9.9 8.7-10.4 mg/dL Body Fluid Source L. knee fluid Body Fluid WBC (Manual) 46010 H 0-200 CUMM Body Fluid RBC (Manual) 040200 H 0-2000 CUMM Body Fluid Mononuclear Cells 10 % Body Fluid Polymorphonuclear Cells 90 H 0-25 % Test 07/25/24 17:05 07/25/24 05:18 07/24/24 05:51 07/23/24 14:50 Range/Units Vancomycin Level Trough 17.8 H 5-10 ug/mL Total Bilirubin 0.5 0.2-1.0 mg/dL Aspartate Amino Transferase (AST) 10 L 13-40 U/L Alanine Aminotransferase (ALT) < 9 7-40 U/L Alkaline Phosphatase 90 46-116 U/L C-Reactive Protein High Sensitivity 0.99 <1.0 mg/dL Total Protein 6.8 5.7-8.2 g/dL Albumin 4.0 3.2-4.8 g/dL Prothrombin Time 10.7 9.3-11.8 sec Prothrombin Time INR 1.01 0.9-1.15 Activated Partial Thromboplast Time 23.8 L 24.5-34.5 SEC Lactic Acid Level 1.3 0.4-2.0 mmol/L Phosphorus Level 5.0 2.4-5.1 mg/dL Magnesium Level 1.9 1.6-2.6 mg/dL Thyroid Stimulating Hormone (TSH) 3.64 0.55-4.78 uIU/mL Urine Opiates Screen Neg NEGATIVE Urine Fentanyl Screen Neg NEGATIVE Urine Barbiturates Screen Neg NEGATIVE Urine Phencyclidine Screen Neg NEGATIVE Urine Amphetamines Screen Neg NEGATIVE Urine Benzodiazepines Screen Neg NEGATIVE Urine Cocaine Screen Neg NEGATIVE Urine Cannabinoids Screen Neg NEGATIVE Test 07/23/24 08:45 07/23/24 06:36 07/22/24 22:37 07/22/24 20:30 Range/Units Influenza Type A Antigen Negative Negative Influenza Type B Antigen Negative Negative SARS-CoV-2 Antigen (Rapid) Negative NEGATIVE Hemoglobin A1c 7.9 H <5.7 % A1C Uric Acid 4.9 3.7-9.2 mg/dL Troponin I High Sensitivity 4 </=54 ng/L Urine Color Light-yellow Yellow Urine Clarity Clear Clear Urine pH 5.5 5.0-9.0 Urine Specific [place] 1.018 1.001-1.035 Urine Protein 1+ H Negative Urine Ketones Trace Negative Urine Blood Trace H Negative /uL Urine Nitrite Negative Negative Urine Bilirubin Negative Negative Urine Urobilinogen Normal Negative mg/dL Urine Leukocyte Esterase Negative Negative /uL Urine RBC 1 0 - 3 /hpf Urine Microscopic WBC 2 0-3 /HPF Urine Squamous Epithelial Cells Few <5 /hpf Urine Bacteria Few H None Seen /hpf Urine Granular Casts Few 0 /lpf Urine Mucus Few None Seen Urine Glucose 4+ H Normal mg/dL Test 07/22/24 19:41 Range/Units B-Type Natriuretic Peptide 66.03 0-100 pg/mL Microbiology Date/Time Source Procedure Growth Status 07/26/24 11:00 Knee Fluid Left Gram Stain - Final Resulted 07/26/24 11:00 Knee Fluid Left Body Fluid Culture - Preliminary Resulted 07/24/24 21:22 Sacrum Gram Stain Pending Resulted 07/24/24 21:22 Wound Culture - Preliminary Proteus mirabilis Resulted 07/23/24 14:50 Voided Urine Urine Culture - Final Complete 07/23/24 14:26 Blood Blood Culture - Final Staphylococcus epidermidis Complete Problems(with codes): (1) Endocarditis (2) Infection of implantable cardioverter-defibrillator (ICD) lead (3) Staphylococcus epidermidis bacteremia (4) Rib fracture (5) Alcohol intoxication (6) Frequent falls Plan/Recommendation ASSESSMENT AND PLAN: ID Problem List: - Coronary artery disease (CAD) - Diabetes mellitus - Multiple stent placements - Coronary artery bypass graft (CABG) - Congestive heart failure (CHF) - Chronic kidney disease (CKD) - Hyperlipidemia - History of myocardial infarctions (MIs) - Pulmonary embolism (PE) - Ventricular tachycardia (V tach) - Bilateral foot amputations related to diabetes - Alcohol use disorder - Bilateral shoulder arthroplasty - Left knee arthroplasty - Left decubitus ulcer - Ulcer on left heel - Sepsis due to methicillin-sensitive Staphylococcus aureus (MSSA) - Bacteremia MSSE bacteremia ICD lead vegetation endocarditis Assessment This is a 63 y.o. male with a past medical history of CAD, diabetes mellitus, multiple stent placements, CABG, CHF, CKD, hyperlipidemia, prior MIs, PE, V tach with AICD placement, and bilateral foot amputations related to diabetes, who presents with chest pain for the past three days, radiating to his back, worsening, and associated with shortness of breath. Laboratory findings include elevated glucose of 376 mg/dL, WBC count of 8.1, platelets 200, sodium 138, BUN 11, and creatinine 0.79. Plan: - continue daptomycin, recommend 10mg/kg dosing on discharge for a total 6 weeks course. will need higher dose for endocarditis insetting of persistent prosthetic source (lead vegetation) and poor oral options thereafter - antibiotics to start once blood cultures after cleared please repeat - recommend CT chest to evaluate prior abscess seen at adjacent fracture site at manubrium to see if this is an additional source of infection - patient was treated for MSSA with 6weeks of ancef, this would not cover current MRSE infection and thus does not constitute treatment failure - ideally icd 10 and pacer lead should be removed, in consideration of prior CABG hx, recent rib fractures, uncontrolled diabetes this would likely be a difficult procedure w/ potential complications. would discuss w/ cardiology as patient does want icd 10 removed but if not a candidate at this will be attempt to clear cultures with antibiotics > patient will need surveillance culture at end of antibiotic therapy as well as repeat RYAN after antibiotics are complete and annually thereafter > risk of infection recurrence will remain so long as infected leads remain in place. may need to discuss [facility] if antibiotics are unable to control infection. - Address alcohol use; consider referral to counseling services. - will need BS to be <180 to optimize infection control, will need close pcp followup for this. Isolation Precautions: Standard Assessment and plan was discussed with the patient as written above. Plan is subject to change pending incorporation of new incoming information/diagnostics. Updates may be added as addendum at the bottom (OR TOP) of this note. Thank you. Aakash Sanchez M.D. [facility] Ph: ? History: The patient's chart and medications were reviewed in detail, and the patient was seen and examined. History obtained from: patient Steven Alcantara is a 63 y.o. male with a past medical history of CAD, diabetes mellitus, multiple stent placements, CABG, CHF, CKD, hyperlipidemia, prior MIs, PE, V tach with AICD placement, and bilateral foot amputations related to diabetes, who presents with chest pain for the past three days, radiating to his back, worsening, and associated with shortness of breath. Patient reports that the chest pain has been getting worse and is accompanied by shortness of breath. He denies smoking and IV drug use. He admits to heavy alcohol use. In April, patient was seen by Dr. Pham during a hospitalization for knee pain and difficulty ambulating in the setting of bilateral cellulitis and leg pain. This occurred after a syncopal collapse where he developed several right- sided rib fractures. At that time, he was acutely intoxicated with alcohol. He was found to have a left decubitus ulcer and an ulcer on the left heel. His hemoglobin A1c was 8.9. He underwent left knee arthroplasty and was found to have sepsis secondary to MSSA bacteremia. He was treated with IV Ancef for six weeks at a SNF facility. He also underwent bilateral shoulder arthroplasty with no signs of infection in the shoulders. A CT chest, abdomen, and pelvis revealed a small fluid collection at the junction of the first rib and manubrium, inferior to the right subclavian vein, measuring 2.3 x 2.7 cm, which may represent a hematoma or abscess. Attempts for CT surgery evaluation were unsuccessful. Review of Systems: A complete 10-system review of systems was completed and nega tive except as noted in the HPI or here. ROS: - CONSTITUTIONAL: Reports chest pain; denies weight loss, fever, and chills. - HEENT: Denies changes in vision and hearing. - RESPIRATORY: Reports shortness of breath; denies cough. - CV: Reports chest pain radiating to back; denies palpitations. - GI: Denies abdominal pain, nausea, vomiting, and diarrhea. - : Denies dysuria and urinary frequency. - MSK: Reports leg pain; denies myalgia and joint pain. - SKIN: Reports ulcers on left heel and left decubitus ulcer. - NEUROLOGICAL: Denies headache and syncope. - PSYCHIATRIC: Denies recent changes in mood; denies anxiety and depression. Past Medical History: Diagnosis - Coronary artery disease - Diabetes mellitus - Hyperlipidemia - Congestive heart failure - Chronic kidney disease - History of myocardial infarctions - Pulmonary embolism - Ventricular tachycardia - Alcohol use disorder - Bilateral foot amputations related to diabetes - Sepsis secondary to MSSA bacteremia Past Surgical History: - Multiple stent placements - Coronary artery bypass graft (CABG) - Percutaneous transluminal coronary angioplasty (PTCA) - Tonsillectomy - AICD placement - Left knee arthroplasty - Bilateral shoulder arthroplasty - Bilateral foot amputations Home Medications: Prior to Admission medications Medication Sig - Aspirin 81 mg chewable tablet: Chew and swallow 1 tablet daily. - Clopidogrel (Plavix) 75 mg tablet: Take 1 tablet by mouth daily. - Atorvastatin (Lipitor) 40 mg tablet: Take 1 tablet by mouth daily. Allergies: - No known allergies Family History: Family history is non-contributory. Social History: Socioeconomic History - Marital status: Not on file - Number of children: Not on file - Years of education: Not on file - Highest education level: Not on file Occupational History - Not on file Tobacco Use - Smoking status: Never smoked Substance and Sexual Activity - Alcohol use: Heavy alcohol use - Drug use: Denies - Sexual activity: Not on file Social Determinants of Health - Not on file Objective: Vital Signs on Arrival: - Temp: Not provided - BP: Not provided - Pulse: Not provided - Resp: Not provided - SpO2: Not provided Physical Exam: General: Appears in mild distress due to chest pain. Neck: Supple. No masses. HEENT: PERRL. Normal lids and conjunctiva. Moist mucous membranes. Oropharynx without lesions, exudates, or excessive erythema. Normal appearance of the external aspects of the nose and ears. Heart: Regular rhythm, normal rate. No murmur. No lower extremity edema. Lungs: Mildly increased respiratory effort. Clear to auscultation bilaterally. No wheezes. No crackles. Abdomen: Soft. Non-tender. Non-distended. No masses or abdominal hernia. Msk: No digital cyanosis. Normal strength and tone in all four limbs. Skin: Warm and dry, no rashes. Neuro: Alert. No facial droop or slurred speech. Extra-ocular movements intact. Sensation intact to soft touch in all four limbs. Psych: Appropriate mood. Full affect. Oriented to person, place, time, and situation. Lines: - No active lines noted. Diagnostic Studies: Available diagnostic studies were reviewed personally. Significant relevant results and findings are outlined below or addressed in the Assessment and Plan above. Laboratory Data: - WBC: 8.1 x10/L - Platelets: 200 x10/L - Sodium: 138 mmol/L - BUN: 11 mg/dL - Creatinine: 0.79 mg/dL - Glucose: 376 mg/dL Pertinent Imaging: - CT chest, abdomen, and pelvis from previous hospitalization showing small fluid collection at junction of first rib and manubrium. End of Note Plan discussed with: Patient AAKASH SANCHEZ MD Jul 27, 2024 20:40
[2024-07-27] MEDS: MUPIROCIN 2% OINT 15gm or 22gm TOP SCH (22:00)
[2024-07-27] MEDS: INDOMETHACIN 25 MG CAP PO SCH (22:48)
[2024-07-28 05:00] VITALS: BP 135/65; PULSE 57; RESP 20; TEMP 98; O2SAT 98
[2024-07-28 07:32] LABS: Basophils # (auto) 0 10 ^3/uL (0-0.2); Basophils % (auto) 0.7 % (0.0-2.0); Eosinophils # (auto) 0.1 10 ^3/uL (0-0.8); Eosinophils % (auto) 1.6 % (0.0-7.0); Hematocrit 40.6 % (41.0-53.0); Hemoglobin 13.3 g/dL (13.5-17.5); Lymphocytes % (auto) 15.1 % (10.0-50.0); Mean Corpuscular Hemoglobin 29.2 pg (28.0-32.0); Mean Corpuscular Hgb Conc. 32.7 g/dL (32.0-36.0); Mean Corpuscular Volume 89.2 fL (80.0-100.0); Monocytes # (auto) 0.8 10 ^3/uL (0-1.3); Monocytes % (auto) 12.3 % (0.0-12.0); Neutrophils # (auto) 4.7 10 ^3/uL (1.6-8.6); Neutrophils % (auto) 70.3 % (37.0-80.0); Nucleated Red Blood Cells % 0.1 %; Platelet Count (auto) 202 10^3/uL (140-450); Red Blood Cells 4.55 10^6/uL (4.5-5.90); Red Cell Distribution Width 16.1 % (11.8-14.3); White Blood Cell 6.7 10^3/uL (4.4-10.8)
[2024-07-28 07:50] LABS: Albumin 4.2 g/dL (3.2-4.8); Alkaline Phosphatase 87 U/L (46-116); Anion Gap 11 (5-15); BUN/Creatinine Ratio 17.3 (10.0-20.0); Bilirubin, Total 0.4 mg/dL (0.2-1.0); Blood Urea Nitrogen 13 mg/dL (9-23); Calcium 9.7 mg/dL (8.7-10.4); Carbon Dioxide 22 mmol/L (20-31); Chloride 105 mmol/L (98-107); Potassium 4.2 mmol/L (3.5-5.1); Sodium 138 mmol/L (136-145); Total Protein 7.1 g/dL (5.7-8.2)
[2024-07-28 07:58] LABS: Alanine Aminotransferase < 9 U/L (7-40); Aspartate Aminotransferase 9 U/L (13-40); Glucose 181 mg/dL (74-106)
[2024-07-28 08:00] VITALS: PULSE 61
[2024-07-28 09:00] VITALS: BP 120/66; PULSE 68; RESP 20; O2SAT 99
[2024-07-28] MEDS: LORazepam 2MG/ML-1ML VIAL IV ONE (12:35)
[2024-07-28 17:15] VITALS: BP 126/70; PULSE 83; RESP 20; TEMP 98.6; O2SAT 97
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
[2024-07-28 20:00] VITALS: PULSE 75; RESP 18; O2SAT 99
[2024-07-28 21:00] VITALS: BP 117/68; PULSE 70; RESP 20; TEMP 97.3; O2SAT 96
[2024-07-28] MEDS: MORPHINE SULF 15mg ER tab PO SCH (21:27)
[2024-07-28] MEDS: clonazePAM 0.5 MG TAB PO SCH (21:29)
--- NOTE | 2024-07-28 22:17 | DVHPN2 ---
Consult Progress Note Date Seen: Jul 28, 2024 Subjective Patient reports: Other (no muscle aches , has tenderness over his pacer site but more related to rear pressures ) Objective vital signs Vital Sign Date Time Temp Pulse Resp B/P (MAP) Pulse Ox O2 Delivery O2 Flow Rate FiO2 07/28/24 21:00 97.3 70 20 117/68 (84) 96 97.3 07/28/24 08:00 Room Air* 0 21 Total Intake and Output 07/27/24 07/27/24 07/28/24 15:00 23:00 07:00 Intake Total 50 ml 542 ml 1100 ml Output Total 600 ml 2150 ml Balance 50 ml -58 ml -1050 ml medications Current Medications Medications Dose Ordered Sig/Sunny Route Start Time Stop Time Status Last Admin Dose Admin Aspirin 81 mg DAILY PO 07/23/24 10:00 07/27/24 09:44 81 MG Sodium Chloride 10 ml Q8HR IV 07/22/24 22:00 07/28/24 21:48 10 ML Diagnostic Test (Pha) 1 strip IQ4HR 07/23/24 04:00 07/28/24 21:30 1 STRIP Insulin Human Regular IQ4HR SC 07/23/24 04:00 07/28/24 21:48 9 UNITS Dextrose 50 ml UD PRN IV 07/23/24 03:30 Pantoprazole Sodium 40 mg DAILY@0600 PO 07/24/24 06:00 07/26/24 05:36 40 MG Metoprolol Succinate 25 mg DAILY PO 07/23/24 10:00 07/27/24 09:45 25 MG Tamsulosin HCl 0.4 mg QPM PO 07/23/24 18:00 07/27/24 19:03 0.4 MG Empaglifozin 10 mg DAILY PO 07/23/24 10:00 07/27/24 09:45 10 MG Atorvastatin Calcium 80 mg HS PO 07/23/24 22:00 07/28/24 21:28 80 MG Baclofen 5 mg Q8HR PO 07/23/24 14:00 07/28/24 21:29 5 MG Trolamine Salicylate 1 applic BID TOP 07/23/24 22:00 07/27/24 22:00 1 APPLIC Acetaminophen 325 mg Q6HP PO 07/23/24 18:00 07/26/24 00:57 325 MG Apixaban 5 mg BID PO 07/24/24 22:00 07/28/24 21:30 5 MG Hydromorphone HCl 1 mg Q4HPRN PRN IV 07/25/24 13:00 07/28/24 17:48 1 MG Oxycodone/ Acetaminophen 2 tab Q4HP PRN PO 07/25/24 13:00 07/25/24 21:11 2 TAB Lactulose 30 ml Q6HPRN PRN PO 07/25/24 13:30 07/26/24 05:35 30 ML Ceftriaxone Sodium 50 ml @ 100 mls/hr DAILY@09 IV 07/27/24 09:00 07/27/24 09:44 100 MLS/HR Mupirocin 1 applic BID TOP 07/27/24 22:00 07/28/24 21:30 1 APPLIC Indomethacin 25 mg TID PO 07/27/24 22:00 07/28/24 21:29 25 MG Daptomycin 500 mg/ Sodium Chloride 50 ml @ 100 mls/hr DAILY@1999 IV 07/27/24 20:00 07/28/24 21:25 100 MLS/HR Clonazepam 0.5 mg BID PO 07/28/24 22:00 07/28/24 21:29 0.5 MG Morphine Sulfate 15 mg Q12HR PO 07/28/24 22:00 07/28/24 21:27 15 MG Physical Exam: General: Appears in mild distress due to chest pain. Neck: Supple. No masses. HEENT: PERRL. Normal lids and conjunctiva. Moist mucous membranes. Oropharynx without lesions, exudates, or excessive erythema. Normal appearance of the external aspects of the nose and ears. Heart: Regular rhythm, normal rate. No murmur. No lower extremity edema. Lungs: Mildly increased respiratory effort. Clear to auscultation bilaterally. No wheezes. No crackles. Abdomen: Soft. Non-tender. Non-distended. No masses or abdominal hernia. Msk: No digital cyanosis. Normal strength and tone in all four limbs. Skin: Warm and dry, no rashes. Neuro: Alert. No facial droop or slurred speech. Extra-ocular movements intact. Sensation intact to soft touch in all four limbs. Psych: Appropriate mood. Full affect. Oriented to person, place, time, and situation. laboratory and microbiology Laboratory Tests 07/28/24 06:58 Test 07/28/24 06:58 Range/Units Serum Glucose 181 H 74-106 mg/dL Problem List/Assessment/Plan Problems(with codes): (1) Infection of implantable cardioverter-defibrillator (ICD) lead (2) Staphylococcus epidermidis bacteremia (3) Frequent falls (4) Rib fracture (5) Endocarditis (6) Alcohol intoxication (7) Pneumonia, unspecified organism (8) Generalized weakness Problem List/Assessment/Plan ID Problem List: - Coronary artery disease (CAD) - Diabetes mellitus - Multiple stent placements - Coronary artery bypass graft (CABG) - Congestive heart failure (CHF) - Chronic kidney disease (CKD) - Hyperlipidemia - History of myocardial infarctions (MIs) - Pulmonary embolism (PE) - Ventricular tachycardia (V tach) - Bilateral foot amputations related to diabetes - Alcohol use disorder - Bilateral shoulder arthroplasty - Left knee arthroplasty - Left decubitus ulcer - Ulcer on left heel - Sepsis due to methicillin-sensitive Staphylococcus aureus (MSSA) - Bacteremia MSSE bacteremia ICD lead vegetation endocarditis Assessment This is a 63 y.o. male with a past medical history of CAD, diabetes mellitus, multiple stent placements, CABG, CHF, CKD, hyperlipidemia, prior MIs, PE, V tach with AICD placement, and bilateral foot amputations related to diabetes, who presents with chest pain for the past three days, radiating to his back, worsening, and associated with shortness of breath. Laboratory findings include elevated glucose of 376 mg/dL, WBC count of 8.1, platelets 200, sodium 138, BUN 11, and creatinine 0.79. 07/28: has not gotten repeat blood cultures yet , aspiration f left knee fluid is howing no organisms and evaluation of the fluid is largely a blood tap possibly consistent with ongoing infection Plan: - continue daptomycin, recommend 10mg/kg dosing on discharge for a total 6 weeks course. will need higher dose for endocarditis insetting of persistent prosthetic source (lead vegetation) and poor oral options thereafter - antibiotics to start once blood cultures after cleared please repeat - recommend CT chest to evaluate prior abscess seen at adjacent fracture site at [facility] to see if this is an additional source of infection - patient was treated for MSSA with 6weeks of ancef, this would not cover current MRSE infection and thus does not constitute treatment failure - ideally icd 10 and pacer lead should be removed, in consideration of prior CABG hx, recent rib fractures, uncontrolled diabetes this would likely be a difficult procedure w/ potential complications. would discuss w/ cardiology as patient does want icd 10 removed but if not a candidate at this will be attempt to clear cultures with antibiotics > patient will need surveillance culture at end of antibiotic therapy as well as repeat RYAN after antibiotics are complete and annually thereafter > risk of infection recurrence will remain so long as infected leads remain in place. may need to discuss outpatient surgery at [facility] if antibiotics are unable to control infection. - Address alcohol use; consider referral to counseling services. - will need BS to be <180 to optimize infection control, will need close pcp followup for this. Isolation Precautions: Standard Plan discussed with: Other Dietary Evaluation Review Comments: tight DM controlled with a CCHO-75 diet. Consider Daniel BID if no renal failure. consider Glucerna BID PO for nutrition supplements Expected Outcomes/Goals: controlled DM, gradually healed wounds, gradual weight gain. AAKASH ALBERTO MD Jul 28, 2024 22:17
[2024-07-29] VITALS (8 sets, daily range): BP systolic 104–134; BP diastolic 63–72; PULSE 60–89; RESP 16–20; TEMP 97.3–98.2; O2SAT 91–99
[2024-07-29 07:10] LABS: Chloride 106 mmol/L (98-107); Potassium 3.9 mmol/L (3.5-5.1); Sodium 139 mmol/L (136-145)
[2024-07-29 07:11] LABS: Anion Gap 10 (5-15); Calcium 9.6 mg/dL (8.7-10.4); Carbon Dioxide 23 mmol/L (20-31)
[2024-07-29 07:16] LABS: BUN/Creatinine Ratio 21.6 (10.0-20.0); Blood Urea Nitrogen 16 mg/dL (9-23)
[2024-07-29 07:18] LABS: Glucose 162 mg/dL (74-106)
[2024-07-29 07:33] LABS: Hematocrit 37.6 % (41.0-53.0); Hemoglobin 12.4 g/dL (13.5-17.5); Mean Corpuscular Hemoglobin 29.6 pg (28.0-32.0); Mean Corpuscular Hgb Conc. 33.1 g/dL (32.0-36.0); Mean Corpuscular Volume 89.4 fL (80.0-100.0); Platelet Count (auto) 203 10^3/uL (140-450); Red Blood Cells 4.21 10^6/uL (4.5-5.90); Red Cell Distribution Width 16.1 % (11.8-14.3); White Blood Cell 5.5 10^3/uL (4.4-10.8)
[2024-07-29 07:39] LABS: Basophils % (manual) 0 (0.0-2.0); Blast Cells 0; Metamyelocytes % 0; Myelocytes % 0; Promyelocytes % 0; Reactive Lymphocytes 0
[2024-07-29 08:02] LABS: Band Neutrophils % (manual) 2; Eosinophils % (manual) 3 (0-7); Lymphocytes % (manual) 18 (10.0-50.0); Monocytes % (manual) 14 (0-12)
[2024-07-29 08:03] LABS: Anisocytosis Slight; Platelet Estimate Adequate
[2024-07-29 08:07] LABS: RPR Non Reactive (Non Reactive)
[2024-07-29] MEDS: IOHEXOL 300 MG/ML 100ML BOTTLE IJ ONE (08:45)
--- NOTE | 2024-07-29 09:54 | DVH ---
Procedure: CT CHEST WITH CONTRAST 07/29/2024 08:59 AM History: evaluate for chest abscess (seen on prior chest CT) Comparison: US CHEST ULTRASOUND on DOS: 05/07/24 Technique: After the uneventful administration of contrast intravenously, CT imaging was performed th rough the chest. Coronal and sagittal reformations were performed by the technologist. 3D image postprocessing was performed on a dedicated workstation and images were used for interpretat ion and reporting. Radiation Dose : CT Dose: CTDI volume is 15.73 mGy. Dose-length product is 586.19 mGy*cm Findings: Lower neck: Normal thyroid. Lungs: No focal consolidation. Moderate to severe centrilobular emphysema. Dependent subsegmental ate lectasis or scarring. Heart/Vascular Structures: Cardiomegaly. Coronary artery calcifications. Vascular calcifications of t he aorta. Lymph Nodes: No adenopathy Pleura: No pleural effusion or significant pneumothorax. Musculoskeletal: No acute osseous abnormality. Degenerative changes of the spine. Soft tissues: Left chest wall pacemaker. Upper abdomen: Moderate hiatal hernia. IMPRESSION: No evidence of acute intrathoracic pathology identified.
[2024-07-29 10:34] LABS: Hepatitis A Ab IgM Negative; Hepatitis B Core IgM Negative (Negative); Hepatitis B Surface Antigen Negative (Negative)
[2024-07-29 10:36] LABS: Hepatitis C Antibody Positive (Negative)
[2024-07-29 12:46] LABS: INR 1.02 (0.9-1.15); Partial Thromboplastin Time 29.5 SEC (24.5-34.5); Prothrombin Time 10.8 sec (9.3-11.8)
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
--- NOTE | 2024-07-29 19:20 | DVHPN2 ---
Consult Progress Note Date Seen: Jul 29, 2024 Subjective Patient reports: Feels better (not having any chest pain , remains weak in lower extremities 4/5 strength ), Other Objective vital signs Vital Sign Date Time Temp Pulse Resp B/P (MAP) Pulse Ox O2 Delivery O2 Flow Rate FiO2 07/29/24 17:32 89 16 104/63 07/29/24 17:00 97.4 91 97.4 07/29/24 07:52 Room Air* 0 21 Total Intake and Output 07/28/24 07/28/24 07/29/24 15:00 23:00 07:00 Intake Total 802 ml 240 ml Output Total 950 ml 600 ml Balance -148 ml -360 ml medications Current Medications Medications Dose Ordered Sig/Sunny Route Start Time Stop Time Status Last Admin Dose Admin Aspirin 81 mg DAILY PO 07/23/24 10:00 07/27/24 09:44 81 MG Sodium Chloride 10 ml Q8HR IV 07/22/24 22:00 07/29/24 14:01 10 ML Diagnostic Test (Pha) 1 strip IQ4HR 07/23/24 04:00 07/29/24 16:32 1 STRIP Insulin Human Regular IQ4HR SC 07/23/24 04:00 07/29/24 16:31 12 UNITS Dextrose 50 ml UD PRN IV 07/23/24 03:30 Pantoprazole Sodium 40 mg DAILY@0600 PO 07/24/24 06:00 07/29/24 05:35 40 MG Metoprolol Succinate 25 mg DAILY PO 07/23/24 10:00 07/27/24 09:45 25 MG Tamsulosin HCl 0.4 mg QPM PO 07/23/24 18:00 07/29/24 18:48 0.4 MG Empaglifozin 10 mg DAILY PO 07/23/24 10:00 07/27/24 09:45 10 MG Atorvastatin Calcium 80 mg HS PO 07/23/24 22:00 07/28/24 21:28 80 MG Baclofen 5 mg Q8HR PO 07/23/24 14:00 07/29/24 14:10 5 MG Trolamine Salicylate 1 applic BID TOP 07/23/24 22:00 07/28/24 22:27 1 APPLIC Acetaminophen 325 mg Q6HP PO 07/23/24 18:00 07/26/24 00:57 325 MG Apixaban 5 mg BID PO 07/24/24 22:00 07/28/24 21:30 5 MG Hydromorphone HCl 1 mg Q4HPRN PRN IV 07/25/24 13:00 07/29/24 17:02 1 MG Oxycodone/ Acetaminophen 2 tab Q4HP PRN PO 07/25/24 13:00 07/25/24 21:11 2 TAB Lactulose 30 ml Q6HPRN PRN PO 07/25/24 13:30 07/26/24 05:35 30 ML Ceftriaxone Sodium 50 ml @ 100 mls/hr DAILY@09 IV 07/27/24 09:00 07/27/24 09:44 100 MLS/HR Mupirocin 1 applic BID TOP 07/27/24 22:00 07/28/24 21:30 1 APPLIC Indomethacin 25 mg TID PO 07/27/24 22:00 07/29/24 14:10 25 MG Daptomycin 500 mg/ Sodium Chloride 50 ml @ 100 mls/hr DAILY@1999 IV 07/27/24 20:00 07/28/24 21:25 100 MLS/HR Clonazepam 0.5 mg BID PO 07/28/24 22:00 07/28/24 21:29 0.5 MG Morphine Sulfate 15 mg Q12HR PO 07/28/24 22:00 07/28/24 21:27 15 MG Physical Exam: General: Appears in mild distress due to chest pain. Neck: Supple. No masses. HEENT: PERRL. Normal lids and conjunctiva. Moist mucous membranes. Oropharynx without lesions, exudates, or excessive erythema. Normal appearance of the external aspects of the nose and ears. Heart: Regular rhythm, normal rate. No murmur. No lower extremity edema. Lungs: Mildly increased respiratory effort. Clear to auscultation bilaterally. No wheezes. No crackles. Abdomen: Soft. Non-tender. Non-distended. No masses or abdominal hernia. Msk: No digital cyanosis. Normal strength and tone in all four limbs. Skin: Warm and dry, no rashes. Neuro: Alert. No facial droop or slurred speech. Extra-ocular movements intact. Sensation intact to soft touch in all four limbs. Psych: Appropriate mood. Full affect. Oriented to person, place, time, and situation. laboratory and microbiology Laboratory Tests 07/29/24 05:47 Test 07/29/24 05:47 Range/Units Serum Glucose 162 H 74-106 mg/dL Problem List/Assessment/Plan Problems(with codes): (1) Infection of implantable cardioverter-defibrillator (ICD) lead (2) Staphylococcus epidermidis bacteremia (3) Frequent falls (4) Rib fracture (5) Endocarditis (6) Alcohol intoxication (7) Pneumonia, unspecified organism (8) Generalized weakness (9) Acute coronary syndrome (10) PIC line (peripherally inserted central catheter) removal Problem List/Assessment/Plan ID Problem List: - Coronary artery disease (CAD) - Diabetes mellitus - Multiple stent placements - Coronary artery bypass graft (CABG) - Congestive heart failure (CHF) - Chronic kidney disease (CKD) - Hyperlipidemia - History of myocardial infarctions (MIs) - Hepatitis C - Pulmonary embolism (PE) - Ventricular tachycardia (V tach) - Bilateral foot amputations related to diabetes - Alcohol use disorder - Bilateral shoulder arthroplasty - Left knee arthroplasty - Left decubitus ulcer - Ulcer on left heel - Sepsis due to methicillin - sensitive Staphylococcus aureus (MSSA) - Bacteremia - MSSE bacteremia - ICD lead vegetation - endocarditis Assessment This is a 63 y.o. male with a past medical history of CAD, diabetes mellitus, multiple stent placements, CABG, CHF, CKD, hyperlipidemia, prior MIs, PE, V tach with AICD placement, and bilateral foot amputations related to diabetes, who presents with chest pain for the past three days, radiating to his back, worsening, and associated with shortness of breath. Laboratory findings include elevated glucose of 376 mg/dL, WBC count of 8.1, platelets 200, sodium 138, BUN 11, and creatinine 0.79. 07/28: has not gotten repeat blood cultures yet , aspiration f left knee fluid is howing no organisms and evaluation of the fluid is largely a blood tap possibly consistent with ongoing infection 07/29: patient is positive for hepatitis C Plan: - follow up with infectious disease as outpatient for treatment of hepatitis C - continue daptomycin, recommend 10mg/kg dosing on discharge for a total 6 weeks course. will need higher dose for endocarditis insetting of persistent prosthetic source (lead vegetation) and poor oral options thereafter - antibiotics to start once blood cultures after cleared please repeat - recommend CT chest to evaluate prior abscess seen at adjacent fracture site at [facility] to see if this is an additional source of infection - patient was treated for MSSA with 6weeks of ancef, this would not cover current MRSE infection and thus does not constitute treatment failure - ideally icd 10 and pacer lead should be removed, in consideration of prior CABG hx, recent rib fractures, uncontrolled diabetes this would likely be a difficult procedure w/ potential complications. would discuss w/ cardiology as patient does want icd 10 removed but if not a candidate at this will be attempt to clear cultures with antibiotics > patient will need surveillance culture at end of antibiotic therapy as well as repeat RYAN after antibiotics are complete and annually thereafter > risk of infection recurrence will remain so long as infected leads remain in place. may need to discuss outpatient surgery at [facility] if antibiotics are unable to control infection. - Address alcohol use; consider referral to counseling services. - will need BS to be <180 to optimize infection control, will need close pcp followup for this. Isolation Precautions: Standard Plan discussed with: Other Dietary Evaluation Review Comments: tight DM controlled with a CCHO-75 diet. Consider Daniel BID if no renal failure. consider Glucerna BID PO for nutrition supplements Expected Outcomes/Goals: controlled DM, gradually healed wounds, gradual weight gain. AAKASH ALBERTO MD Jul 29, 2024 19:20
[2024-07-30] VITALS (11 sets, daily range): BP systolic 105–125; BP diastolic 63–88; PULSE 58–88; RESP 16–20; TEMP 97.6–98.8; O2SAT 94–100
[2024-07-30 10:32] LABS: Basophils # (auto) 0.1 10 ^3/uL (0-0.2); Eosinophils # (auto) 0.2 10 ^3/uL (0-0.8); Eosinophils % (auto) 2.7 % (0.0-7.0); Hematocrit 36.5 % (41.0-53.0); Hemoglobin 12.1 g/dL (13.5-17.5); Lymphocytes % (auto) 15.8 % (10.0-50.0); Mean Corpuscular Hemoglobin 29.8 pg (28.0-32.0); Mean Corpuscular Hgb Conc. 33.1 g/dL (32.0-36.0); Mean Corpuscular Volume 89.9 fL (80.0-100.0); Monocytes # (auto) 0.8 10 ^3/uL (0-1.3); Monocytes % (auto) 13.2 % (0.0-12.0); Neutrophils # (auto) 4.1 10 ^3/uL (1.6-8.6); Neutrophils % (auto) 67.3 % (37.0-80.0); Nucleated Red Blood Cells % 0.1 %; Platelet Count (auto) 212 10^3/uL (140-450); Red Blood Cells 4.06 10^6/uL (4.5-5.90); Red Cell Distribution Width 15.8 % (11.8-14.3); White Blood Cell 6.1 10^3/uL (4.4-10.8)
[2024-07-30 10:54] LABS: Anion Gap 11 (5-15); Carbon Dioxide 21 mmol/L (20-31); Chloride 106 mmol/L (98-107); Potassium 4.2 mmol/L (3.5-5.1); Sodium 138 mmol/L (136-145)
[2024-07-30 10:55] LABS: Calcium 9.4 mg/dL (8.7-10.4)
[2024-07-30 11:00] LABS: Blood Urea Nitrogen 16 mg/dL (9-23)
[2024-07-30 11:01] LABS: Glucose 246 mg/dL (74-106); Magnesium 2.1 mg/dL (1.6-2.6)
[2024-07-30 11:02] LABS: Phosphorus 4.8 mg/dL (2.4-5.1)
[2024-07-30] MEDS: IPRATROPIUM BROM 0.5 MG/2.5ML INH SOL NEB SCH (12:00)
[2024-07-30] MEDS: LEVALBUTEROL HCL 1.25 MG/3 ML NEB NEB SCH (12:00)
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
[2024-07-30] MEDS: ACETAMINOPHEN 325 MG TAB PO SCH (15:02)
[2024-07-30] MEDS: HYDROmorphone HCL 2 MG/ML VL/or syr IV PRN (15:06)
[2024-07-30] MEDS: MORPHINE SULF 15mg ER tab PO SCH (17:20)
[2024-07-31] VITALS (14 sets, daily range): BP systolic 98–129; BP diastolic 54–71; PULSE 60–80; RESP 16–18; TEMP 97.8–98.6; O2SAT 95–100
[2024-07-31 11:02] LABS: Chloride 105 mmol/L (98-107); Potassium 3.9 mmol/L (3.5-5.1); Sodium 138 mmol/L (136-145)
[2024-07-31 11:03] LABS: Anion Gap 9 (5-15); Carbon Dioxide 24 mmol/L (20-31)
[2024-07-31 11:04] LABS: Calcium 9.5 mg/dL (8.7-10.4)
[2024-07-31 11:08] LABS: BUN/Creatinine Ratio 14.9 (10.0-20.0); Blood Urea Nitrogen 11 mg/dL (9-23)
[2024-07-31 11:14] LABS: Glucose 118 mg/dL (74-106)
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
[2024-07-31 13:49] LABS: Basophils # (auto) 0.1 10 ^3/uL (0-0.2); Basophils % (auto) 1.1 % (0.0-2.0); Eosinophils # (auto) 0.2 10 ^3/uL (0-0.8); Eosinophils % (auto) 2.9 % (0.0-7.0); Hematocrit 41.5 % (41.0-53.0); Hemoglobin 13.9 g/dL (13.5-17.5); Lymphocytes # (auto) 1.2 10 ^3/uL (0.4-5.4); Lymphocytes % (auto) 19.6 % (10.0-50.0); Mean Corpuscular Hemoglobin 29.8 pg (28.0-32.0); Mean Corpuscular Hgb Conc. 33.4 g/dL (32.0-36.0); Mean Corpuscular Volume 89.3 fL (80.0-100.0); Monocytes # (auto) 1.1 10 ^3/uL (0-1.3); Monocytes % (auto) 18.3 % (0.0-12.0); Neutrophils # (auto) 3.6 10 ^3/uL (1.6-8.6); Neutrophils % (auto) 58.1 % (37.0-80.0); Nucleated Red Blood Cells % 0.3 %; Platelet Count (auto) 173 10^3/uL (140-450); Red Blood Cells 4.65 10^6/uL (4.5-5.90); White Blood Cell 6.3 10^3/uL (4.4-10.8)
--- NOTE | 2024-07-31 17:14 | DVHPN2 ---
Consult Progress Note Date Seen: Jul 30, 2024 Subjective Patient reports: Other (refuse piccline placement today , unclear why he is agitated and is refusing meds as well ) Objective vital signs Vital Sign Date Time Temp Pulse Resp B/P (MAP) Pulse Ox O2 Delivery O2 Flow Rate FiO2 07/31/24 16:40 98.0 62 18 129/71 (90) 96 98.0 07/31/24 10:00 Room Air* 0 21 Total Intake and Output 07/30/24 07/30/24 07/31/24 15:00 23:00 07:00 Intake Total 50 ml 420 ml 200 ml Output Total 2 ml 400 ml Balance 50 ml 418 ml -200 ml medications Current Medications Medications Dose Ordered Sig/Sunny Route Start Time Stop Time Status Last Admin Dose Admin Aspirin 81 mg DAILY PO 07/23/24 10:00 07/31/24 09:26 81 MG Sodium Chloride 10 ml Q8HR IV 07/22/24 22:00 07/31/24 14:47 10 ML Diagnostic Test (Pha) 1 strip IQ4HR 07/23/24 04:00 07/31/24 16:00 1 STRIP Insulin Human Regular IQ4HR SC 07/23/24 04:00 07/31/24 12:11 2 UNITS Dextrose 50 ml UD PRN IV 07/23/24 03:30 Pantoprazole Sodium 40 mg DAILY@0600 PO 07/24/24 06:00 07/31/24 06:03 40 MG Metoprolol Succinate 25 mg DAILY PO 07/23/24 10:00 07/31/24 09:27 25 MG Tamsulosin HCl 0.4 mg QPM PO 07/23/24 18:00 07/30/24 17:23 0.4 MG Empaglifozin 10 mg DAILY PO 07/23/24 10:00 07/31/24 09:28 10 MG Atorvastatin Calcium 80 mg HS PO 07/23/24 22:00 07/30/24 22:47 80 MG Baclofen 5 mg Q8HR PO 07/23/24 14:00 07/31/24 14:48 5 MG Trolamine Salicylate 1 applic BID TOP 07/23/24 22:00 07/31/24 09:28 1 APPLIC Apixaban 5 mg BID PO 07/24/24 22:00 07/31/24 09:26 5 MG Lactulose 30 ml Q6HPRN PRN PO 07/25/24 13:30 07/26/24 05:35 30 ML Ceftriaxone Sodium 50 ml @ 100 mls/hr DAILY@09 IV 07/27/24 09:00 07/31/24 09:25 100 MLS/HR Mupirocin 1 applic BID TOP 07/27/24 22:00 07/31/24 09:28 1 APPLIC Indomethacin 25 mg TID PO 07/27/24 22:00 07/31/24 14:48 25 MG Daptomycin 500 mg/ Sodium Chloride 50 ml @ 100 mls/hr DAILY@1999 IV 07/27/24 20:00 07/30/24 21:37 100 MLS/HR Clonazepam 0.5 mg BID PO 07/28/24 22:00 07/31/24 09:26 0.5 MG Ipratropium [place] 0.5 mg Q6HWA NEB 07/30/24 12:00 07/31/24 05:44 0.5 MG Levalbuterol HCl 0.625 mg Q6HR NEB 07/30/24 12:00 07/31/24 05:44 0.625 MG Hydromorphone HCl 0.5 mg Q3HP PRN IV 07/30/24 12:15 07/31/24 16:37 0.5 MG Morphine Sulfate 15 mg Q8HR PO 07/30/24 14:00 07/31/24 14:49 15 MG Acetaminophen 650 mg Q8HR PO 07/30/24 14:00 Physical Exam: General: Sedated and intubated. Neck: Supple. No masses. HEENT: PERRL. Normal lids and conjunctiva. Moist mucous membranes. Oropharynx without lesions, exudates or excessive erythema. Normal appearance of the external aspects of the nose and ears. Heart: Regular rhythm, tachycardic. No murmur. No lower extremity edema. Lungs: Decreased breath sounds bilaterally with crackles worse on the left side. Abdomen: Mildly distended. Non-tender. No masses or abdominal hernia. Msk: No digital cyanosis. Unable to assess strength and tone due to sedation. Skin: Warm and dry, no rashes. Neuro: Unable to assess due to sedation. Psych: Unable to assess mood and affect due to sedation. laboratory and microbiology Laboratory Tests 07/31/24 13:15 07/31/24 10:00 Test 07/31/24 10:00 Range/Units Serum Glucose 118 #H 74-106 mg/dL Problem List/Assessment/Plan Problems(with codes): (1) PIC line (peripherally inserted central catheter) removal (2) Infection of implantable cardioverter-defibrillator (ICD) lead (3) Staphylococcus epidermidis bacteremia (4) Frequent falls (5) Rib fracture (6) Endocarditis (7) Alcohol intoxication (8) Pneumonia, unspecified organism (9) Generalized weakness (10) Acute coronary syndrome (11) Multiple fractures of ribs, right side, initial encounter for closed fracture (12) Syncope and collapse Problem List/Assessment/Plan ID Problem List: - Coronary artery disease (CAD) - Diabetes mellitus - Multiple stent placements - Coronary artery bypass graft (CABG) - Congestive heart failure (CHF) - Chronic kidney disease (CKD) - Hyperlipidemia - History of myocardial infarctions (MIs) - Hepatitis C - Pulmonary embolism (PE) - Ventricular tachycardia (V tach) - Bilateral foot amputations related to diabetes - Alcohol use disorder - Bilateral shoulder arthroplasty - Left knee arthroplasty - Left decubitus ulcer - Ulcer on left heel - Sepsis due to methicillin - sensitive Staphylococcus aureus (MSSA) - Bacteremia - MSSE bacteremia - ICD lead vegetation - endocarditis Assessment This is a 63 y.o. male with a past medical history of CAD, diabetes mellitus, multiple stent placements, CABG, CHF, CKD, hyperlipidemia, prior MIs, PE, V tach with AICD placement, and bilateral foot amputations related to diabetes, who presents with chest pain for the past three days, radiating to his back, worsening, and associated with shortness of breath. Laboratory findings include elevated glucose of 376 mg/dL, WBC count of 8.1, platelets 200, sodium 138, BUN 11, and creatinine 0.79. 07/28: has not gotten repeat blood cultures yet , aspiration f left knee fluid is showing no organisms and evaluation of the fluid is largely a blood tap possibly consistent with ongoing infection 07/29: patient is positive for hepatitis C 07/30: If patient is refusing piccline patient can go to a [place] [facility] facility and can receive daptomycin via peripheral line Plan: - follow up with infectious disease as outpatient for treatment of hepatitis C - continue daptomycin, recommend 10mg/kg dosing on discharge for a total 6 weeks course. will need higher dose for endocarditis insetting of persistent prosthetic source (lead vegetation) and poor oral options thereafter - antibiotics to start once blood cultures after cleared please repeat - recommend CT chest to evaluate prior abscess seen at adjacent fracture site at [facility] to see if this is an additional source of infection - patient was treated for MSSA with 6weeks of ancef, this would not cover current MRSE infection and thus does not constitute treatment failure - ideally icd 10 and pacer lead should be removed, in consideration of prior CABG hx, recent rib fractures, uncontrolled diabetes this would likely be a difficult procedure w/ potential complications. would discuss w/ cardiology as patient does want icd 10 removed but if not a candidate at this will be attempt to clear cultures with antibiotics > patient will need surveillance culture at end of antibiotic therapy as well as repeat RYAN after antibiotics are complete and annually thereafter > risk of infection recurrence will remain so long as infected leads remain in place. may need to discuss outpatient surgery at [facility] if antibiotics are unable to control infection. - Address alcohol use; consider referral to counseling services. - will need BS to be <180 to optimize infection control, will need close pcp followup for this. Isolation Precautions: Standard Plan discussed with: Other Dietary Evaluation Review Comments: tight DM controlled with a CCHO-75 diet. Consider Daniel BID if no renal failure. consider Glucerna BID PO for nutrition supplements Expected Outcomes/Goals: controlled DM, gradually healed wounds, gradual weight gain. AAKASH ALBERTO MD Jul 31, 2024 17:14
--- NOTE | 2024-07-31 17:17 | DVHPN2 ---
Consult Progress Note Date Seen: Jul 31, 2024 Subjective Patient reports: Other (tolerating daptomycin , no fevers or chills ) Objective vital signs Vital Sign Date Time Temp Pulse Resp B/P (MAP) Pulse Ox O2 Delivery O2 Flow Rate FiO2 07/31/24 16:40 98.0 62 18 129/71 (90) 96 98.0 07/31/24 10:00 Room Air* 0 21 Total Intake and Output 07/30/24 07/30/24 07/31/24 15:00 23:00 07:00 Intake Total 50 ml 420 ml 200 ml Output Total 2 ml 400 ml Balance 50 ml 418 ml -200 ml medications Current Medications Medications Dose Ordered Sig/Sunny Route Start Time Stop Time Status Last Admin Dose Admin Aspirin 81 mg DAILY PO 07/23/24 10:00 07/31/24 09:26 81 MG Sodium Chloride 10 ml Q8HR IV 07/22/24 22:00 07/31/24 14:47 10 ML Diagnostic Test (Pha) 1 strip IQ4HR 07/23/24 04:00 07/31/24 16:00 1 STRIP Insulin Human Regular IQ4HR SC 07/23/24 04:00 07/31/24 12:11 2 UNITS Dextrose 50 ml UD PRN IV 07/23/24 03:30 Pantoprazole Sodium 40 mg DAILY@0600 PO 07/24/24 06:00 07/31/24 06:03 40 MG Metoprolol Succinate 25 mg DAILY PO 07/23/24 10:00 07/31/24 09:27 25 MG Tamsulosin HCl 0.4 mg QPM PO 07/23/24 18:00 07/30/24 17:23 0.4 MG Empaglifozin 10 mg DAILY PO 07/23/24 10:00 07/31/24 09:28 10 MG Atorvastatin Calcium 80 mg HS PO 07/23/24 22:00 07/30/24 22:47 80 MG Baclofen 5 mg Q8HR PO 07/23/24 14:00 07/31/24 14:48 5 MG Trolamine Salicylate 1 applic BID TOP 07/23/24 22:00 07/31/24 09:28 1 APPLIC Apixaban 5 mg BID PO 07/24/24 22:00 07/31/24 09:26 5 MG Lactulose 30 ml Q6HPRN PRN PO 07/25/24 13:30 07/26/24 05:35 30 ML Ceftriaxone Sodium 50 ml @ 100 mls/hr DAILY@09 IV 07/27/24 09:00 07/31/24 09:25 100 MLS/HR Mupirocin 1 applic BID TOP 07/27/24 22:00 07/31/24 09:28 1 APPLIC Indomethacin 25 mg TID PO 07/27/24 22:00 07/31/24 14:48 25 MG Daptomycin 500 mg/ Sodium Chloride 50 ml @ 100 mls/hr DAILY@1999 IV 07/27/24 20:00 07/30/24 21:37 100 MLS/HR Clonazepam 0.5 mg BID PO 07/28/24 22:00 07/31/24 09:26 0.5 MG Ipratropium [place] 0.5 mg Q6HWA NEB 07/30/24 12:00 07/31/24 05:44 0.5 MG Levalbuterol HCl 0.625 mg Q6HR NEB 07/30/24 12:00 07/31/24 05:44 0.625 MG Hydromorphone HCl 0.5 mg Q3HP PRN IV 07/30/24 12:15 07/31/24 16:37 0.5 MG Morphine Sulfate 15 mg Q8HR PO 07/30/24 14:00 07/31/24 14:49 15 MG Acetaminophen 650 mg Q8HR PO 07/30/24 14:00 Physical Exam: General: Sedated and intubated. Neck: Supple. No masses. HEENT: PERRL. Normal lids and conjunctiva. Moist mucous membranes. Oropharynx without lesions, exudates or excessive erythema. Normal appearance of the external aspects of the nose and ears. Heart: Regular rhythm, tachycardic. No murmur. No lower extremity edema. Lungs: Decreased breath sounds bilaterally with crackles worse on the left side. Abdomen: Mildly distended. Non-tender. No masses or abdominal hernia. Msk: No digital cyanosis. Unable to assess strength and tone due to sedation. Skin: Warm and dry, no rashes. Neuro: Unable to assess due to sedation. Psych: Unable to assess mood and affect due to sedation. laboratory and microbiology Laboratory Tests 07/31/24 13:15 07/31/24 10:00 Test 07/31/24 10:00 Range/Units Serum Glucose 118 #H 74-106 mg/dL Problem List/Assessment/Plan Problems(with codes): (1) Hepatitis C (2) Multiple fractures of ribs, right side, initial encounter for closed fracture (3) Syncope and collapse (4) PIC line (peripherally inserted central catheter) removal (5) Infection of implantable cardioverter-defibrillator (ICD) lead (6) Staphylococcus epidermidis bacteremia (7) Frequent falls (8) Rib fracture (9) Endocarditis (10) Alcohol intoxication (11) Pneumonia, unspecified organism Problem List/Assessment/Plan ID Problem List: - Coronary artery disease (CAD) - Diabetes mellitus - Multiple stent placements - Coronary artery bypass graft (CABG) - Congestive heart failure (CHF) - Chronic kidney disease (CKD) - Hyperlipidemia - History of myocardial infarctions (MIs) - Hepatitis C - Pulmonary embolism (PE) - Ventricular tachycardia (V tach) - Bilateral foot amputations related to diabetes - Alcohol use disorder - Bilateral shoulder arthroplasty - Left knee arthroplasty - Left decubitus ulcer - Ulcer on left heel - Sepsis due to methicillin - sensitive Staphylococcus aureus (MSSA) - Bacteremia - MSSE bacteremia - ICD lead vegetation - endocarditis Assessment This is a 63 y.o. male with a past medical history of CAD, diabetes mellitus, multiple stent placements, CABG, CHF, CKD, hyperlipidemia, prior MIs, PE, V tach with AICD placement, and bilateral foot amputations related to diabetes, who presents with chest pain for the past three days, radiating to his back, worsening, and associated with shortness of breath. Laboratory findings include elevated glucose of 376 mg/dL, WBC count of 8.1, platelets 200, sodium 138, BUN 11, and creatinine 0.79. 07/28: has not gotten repeat blood cultures yet , aspiration f left knee fluid is showing no organisms and evaluation of the fluid is largely a blood tap possibly consistent with ongoing infection 07/29: patient is positive for hepatitis C 07/30: If patient is refusing piccline patient can go to a usp facility and can receive daptomycin via peripheral line 07/31: patient had chest ct done and showed no evidence of acute intrathoracic pathology identified and did not find any residual abscess Plan: - follow up with infectious disease as outpatient for treatment of hepatitis C - continue daptomycin, recommend 10mg/kg dosing on discharge for a total 6 weeks course. will need higher dose for endocarditis insetting of persistent prosthetic source (lead vegetation) and poor oral options thereafter - antibiotics to start once blood cultures after cleared please repeat - recommend CT chest to evaluate prior abscess seen at adjacent fracture site at [facility] to see if this is an additional source of infection - patient was treated for MSSA with 6weeks of ancef, this would not cover current MRSE infection and thus does not constitute treatment failure - ideally icd 10 and pacer lead should be removed, in consideration of prior CABG hx, recent rib fractures, uncontrolled diabetes this would likely be a difficult procedure w/ potential complications. would discuss w/ cardiology as patient does want icd 10 removed but if not a candidate at this will be attempt to clear cultures with antibiotics > patient will need surveillance culture at end of antibiotic therapy as well as repeat RYAN after antibiotics are complete and annually thereafter > risk of infection recurrence will remain so long as infected leads remain in place. may need to discuss outpatient surgery at [facility] if antibiotics are unable to control infection. - Address alcohol use; consider referral to counseling services. - will need BS to be <180 to optimize infection control, will need close pcp followup for this. Isolation Precautions: Standard Plan discussed with: Other Dietary Evaluation Review Comments: tight DM controlled with a CCHO-75 diet. Consider Daniel BID if no renal failure. consider Glucerna BID PO for nutrition supplements Expected Outcomes/Goals: controlled DM, gradually healed wounds, gradual weight gain. AAKASH ALBERTO MD Jul 31, 2024 17:17
[2024-08-01] VITALS (17 sets, daily range): BP systolic 107–136; BP diastolic 45–74; PULSE 56–102; RESP 16–20; TEMP 97.4–98.6; O2SAT 95–100
[2024-08-01 13:38] LABS: Basophils # (auto) 0.1 10 ^3/uL (0-0.2); Basophils % (auto) 1.1 % (0.0-2.0); Eosinophils # (auto) 0.1 10 ^3/uL (0-0.8); Eosinophils % (auto) 2.1 % (0.0-7.0); Hematocrit 40.6 % (41.0-53.0); Hemoglobin 13.5 g/dL (13.5-17.5); Lymphocytes # (auto) 0.9 10 ^3/uL (0.4-5.4); Lymphocytes % (auto) 14.4 % (10.0-50.0); Mean Corpuscular Hemoglobin 30.1 pg (28.0-32.0); Mean Corpuscular Hgb Conc. 33.2 g/dL (32.0-36.0); Mean Corpuscular Volume 90.8 fL (80.0-100.0); Monocytes # (auto) 0.8 10 ^3/uL (0-1.3); Monocytes % (auto) 13.9 % (0.0-12.0); Neutrophils # (auto) 4.1 10 ^3/uL (1.6-8.6); Neutrophils % (auto) 68.5 % (37.0-80.0); Nucleated Red Blood Cells % 0.1 %; Platelet Count (auto) 167 10^3/uL (140-450); Red Blood Cells 4.48 10^6/uL (4.5-5.90); Red Cell Distribution Width 16.4 % (11.8-14.3)
[2024-08-01 13:49] LABS: Chloride 103 mmol/L (98-107); Sodium 137 mmol/L (136-145)
[2024-08-01 13:50] LABS: Anion Gap 11 (5-15); Calcium 9.1 mg/dL (8.7-10.4); Carbon Dioxide 23 mmol/L (20-31)
[2024-08-01 14:01] LABS: Glucose 169 mg/dL (74-106)
[2024-08-01 14:21] LABS: BUN/Creatinine Ratio 16.3 (10.0-20.0)
[2024-08-01 14:22] LABS: Blood Urea Nitrogen 15 mg/dL (9-23); Potassium 4.7 mmol/L (3.5-5.1)
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
--- NOTE | 2024-08-01 20:28 | DVHPN2 ---
Consult Progress Note Date Seen: Aug 01, 2024 Subjective Patient reports: Other (today made claims today that he wants to use substance abuse drugs for pain management ) Objective vital signs Vital Sign Date Time Temp Pulse Resp B/P (MAP) Pulse Ox O2 Delivery O2 Flow Rate FiO2 08/01/24 19:13 102 18 100 08/01/24 18:57 Room Air 0.0 08/01/24 18:57 21 08/01/24 16:58 98.6 112/69 (83) 98.6 Total Intake and Output 07/31/24 07/31/24 08/01/24 15:00 23:00 07:00 Intake Total 600 ml 800 ml Output Total 1075 ml 800 ml Balance -475 ml 0 ml medications Current Medications Medications Dose Ordered Sig/Sunny Route Start Time Stop Time Status Last Admin Dose Admin Aspirin 81 mg DAILY PO 07/23/24 10:00 08/01/24 10:45 81 MG Sodium Chloride 10 ml Q8HR IV 07/22/24 22:00 08/01/24 14:56 10 ML Diagnostic Test (Pha) 1 strip IQ4HR 07/23/24 04:00 08/01/24 16:35 1 STRIP Insulin Human Regular IQ4HR SC 07/23/24 04:00 08/01/24 17:11 9 UNITS Dextrose 50 ml UD PRN IV 07/23/24 03:30 Pantoprazole Sodium 40 mg DAILY@0600 PO 07/24/24 06:00 08/01/24 05:25 40 MG Metoprolol Succinate 25 mg DAILY PO 07/23/24 10:00 07/31/24 09:27 25 MG Tamsulosin HCl 0.4 mg QPM PO 07/23/24 18:00 08/01/24 18:49 0.4 MG Empaglifozin 10 mg DAILY PO 07/23/24 10:00 08/01/24 10:47 10 MG Atorvastatin Calcium 80 mg HS PO 07/23/24 22:00 07/31/24 20:54 80 MG Baclofen 5 mg Q8HR PO 07/23/24 14:00 08/01/24 14:53 5 MG Trolamine Salicylate 1 applic BID TOP 07/23/24 22:00 07/31/24 22:23 1 APPLIC Apixaban 5 mg BID PO 07/24/24 22:00 08/01/24 10:46 5 MG Lactulose 30 ml Q6HPRN PRN PO 07/25/24 13:30 07/26/24 05:35 30 ML Ceftriaxone Sodium 50 ml @ 100 mls/hr DAILY@09 IV 07/27/24 09:00 08/01/24 08:59 100 MLS/HR Mupirocin 1 applic BID TOP 07/27/24 22:00 07/31/24 22:25 1 APPLIC Indomethacin 25 mg TID PO 07/27/24 22:00 08/01/24 14:53 25 MG Daptomycin 500 mg/ Sodium Chloride 50 ml @ 100 mls/hr DAILY@1999 IV 07/27/24 20:00 07/30/24 21:37 100 MLS/HR Clonazepam 0.5 mg BID PO 07/28/24 22:00 07/31/24 21:26 0.5 MG Ipratropium [place] 0.5 mg Q6HWA NEB 07/30/24 12:00 08/01/24 07:37 0.5 MG Levalbuterol HCl 0.625 mg Q6HR NEB 07/30/24 12:00 08/01/24 07:37 0.625 MG Hydromorphone HCl 0.5 mg Q3HP PRN IV 07/30/24 12:15 08/01/24 16:35 0.5 MG Morphine Sulfate 15 mg Q8HR PO 07/30/24 14:00 08/01/24 14:52 15 MG Acetaminophen 650 mg Q8HR PO 07/30/24 14:00 07/31/24 22:24 650 MG Physical Exam: General: Sedated and intubated. Neck: Supple. No masses. HEENT: PERRL. Normal lids and conjunctiva. Moist mucous membranes. Oropharynx without lesions, exudates or excessive erythema. Normal appearance of the external aspects of the nose and ears. Heart: Regular rhythm, tachycardic. No murmur. No lower extremity edema. Lungs: Decreased breath sounds bilaterally with crackles worse on the left side. Abdomen: Mildly distended. Non-tender. No masses or abdominal hernia. Msk: No digital cyanosis. Unable to assess strength and tone due to sedation. Skin: Warm and dry, no rashes. Neuro: Unable to assess due to sedation. Psych: Unable to assess mood and affect due to sedation. laboratory and microbiology Laboratory Tests 08/01/24 13:17 Test 08/01/24 13:17 Range/Units Serum Glucose 169 H 74-106 mg/dL Problem List/Assessment/Plan Problems(with codes): (1) Hepatitis C (2) Multiple fractures of ribs, right side, initial encounter for closed fracture (3) Syncope and collapse (4) PIC line (peripherally inserted central catheter) removal (5) Infection of implantable cardioverter-defibrillator (ICD) lead (6) Staphylococcus epidermidis bacteremia (7) Frequent falls (8) Rib fracture (9) Endocarditis Problem List/Assessment/Plan ID Problem List: - Coronary artery disease (CAD) - Diabetes mellitus - Multiple stent placements - Coronary artery bypass graft (CABG) - Congestive heart failure (CHF) - Chronic kidney disease (CKD) - Hyperlipidemia - History of myocardial infarctions (MIs) - Hepatitis C - Pulmonary embolism (PE) - Ventricular tachycardia (V tach) - Bilateral foot amputations related to diabetes - Alcohol use disorder - Bilateral shoulder arthroplasty - Left knee arthroplasty - Left decubitus ulcer - Ulcer on left heel - Sepsis due to methicillin - sensitive Staphylococcus aureus (MSSA) - Bacteremia - MSSE bacteremia - ICD lead vegetation - endocarditis Assessment This is a 63 y.o. male with a past medical history of CAD, diabetes mellitus, multiple stent placements, CABG, CHF, CKD, hyperlipidemia, prior MIs, PE, V tach with AICD placement, and bilateral foot amputations related to diabetes, who presents with chest pain for the past three days, radiating to his back, worsening, and associated with shortness of breath. Laboratory findings include elevated glucose of 376 mg/dL, WBC count of 8.1, platelets 200, sodium 138, BUN 11, and creatinine 0.79. 07/28: has not gotten repeat blood cultures yet , aspiration f left knee fluid is showing no organisms and evaluation of the fluid is largely a blood tap possibly consistent with ongoing infection 07/29: patient is positive for hepatitis C 07/30: If patient is refusing piccline patient can go to a penitentiary facility and can receive daptomycin via peripheral line 07/31: patient had chest ct done and showed no evidence of acute intrathoracic pathology identified and did not find any residual abscess 08/01: patients repeat blood cultures remain no growth to date Plan: - due to substance abuse history patient is not a candidate for piccline so will discontinue - ideally patient should go to a penitentiary facility and get IV daptomycin for 6 weeks if unable to acquire a discharge with SNF patient could potentially go on oral antibiotics but far from ideal and patient has a high risk of reinfection - follow up with infectious disease as outpatient for treatment of hepatitis C - continue daptomycin, recommend 10mg/kg dosing on discharge for a total 6 weeks course. will need higher dose for endocarditis insetting of persistent prosthetic source (lead vegetation) and poor oral options thereafter - antibiotics to start once blood cultures after cleared please repeat - recommend CT chest to evaluate prior abscess seen at adjacent fracture site at [facility] to see if this is an additional source of infection - patient was treated for MSSA with 6weeks of ancef, this would not cover current MRSE infection and thus does not constitute treatment failure - ideally icd 10 and pacer lead should be removed, in consideration of prior CABG hx, recent rib fractures, uncontrolled diabetes this would likely be a difficult procedure w/ potential complications. would discuss w/ cardiology as patient does want icd 10 removed but if not a candidate at this will be attempt to clear cultures with antibiotics > patient will need surveillance culture at end of antibiotic therapy as well as repeat RYAN after antibiotics are complete and annually thereafter > risk of infection recurrence will remain so long as infected leads remain in place. may need to discuss outpatient surgery at [facility] if antibiotics are unable to control infection. - Address alcohol use; consider referral to counseling services. - will need BS to be <180 to optimize infection control, will need close pcp followup for this. Isolation Precautions: Standard Plan discussed with: Other Dietary Evaluation Review Comments: tight DM controlled with a CCHO-75 diet. Consider Daniel BID if no renal failure. consider Glucerna BID PO for nutrition supplements Expected Outcomes/Goals: controlled DM, gradually healed wounds, gradual weight gain. AAKASH ALBERTO MD Aug 01, 2024 20:28
[2024-08-02] VITALS (14 sets, daily range): BP systolic 106–159; BP diastolic 43–73; PULSE 57–74; RESP 16–20; TEMP 36.3; O2SAT 94–100
[2024-08-02 07:57] LABS: Basophils # (auto) 0.1 10 ^3/uL (0-0.2); Basophils % (auto) 1.3 % (0.0-2.0); Eosinophils # (auto) 0.1 10 ^3/uL (0-0.8); Eosinophils % (auto) 2.7 % (0.0-7.0); Hemoglobin 12.7 g/dL (13.5-17.5); Lymphocytes # (auto) 1.1 10 ^3/uL (0.4-5.4); Lymphocytes % (auto) 20.7 % (10.0-50.0); Mean Corpuscular Hemoglobin 29.3 pg (28.0-32.0); Mean Corpuscular Hgb Conc. 32.4 g/dL (32.0-36.0); Mean Corpuscular Volume 90.4 fL (80.0-100.0); Monocytes # (auto) 0.6 10 ^3/uL (0-1.3); Monocytes % (auto) 10.3 % (0.0-12.0); Neutrophils # (auto) 3.5 10 ^3/uL (1.6-8.6); Nucleated Red Blood Cells % 0.1 %; Platelet Count (auto) 165 10^3/uL (140-450); Red Blood Cells 4.32 10^6/uL (4.5-5.90); Red Cell Distribution Width 16.2 % (11.8-14.3); White Blood Cell 5.3 10^3/uL (4.4-10.8)
[2024-08-02 08:29] LABS: Potassium 4.7 mmol/L (3.5-5.1); Sodium 141 mmol/L (136-145)
[2024-08-02 08:30] LABS: Anion Gap 9 (5-15); Calcium 9.1 mg/dL (8.7-10.4); Carbon Dioxide 24 mmol/L (20-31)
[2024-08-02 08:35] LABS: BUN/Creatinine Ratio 14.8 (10.0-20.0); Blood Urea Nitrogen 13 mg/dL (9-23)
[2024-08-02 08:36] LABS: Chloride 108 mmol/L (98-107); Glucose 160 mg/dL (74-106)
[2024-08-02] MEDS ORDERED: INDO-34 PO (13:40)
[2024-08-02] MEDS ORDERED: LINE1TAB6 PO (13:40)
[2024-08-02] MEDS ORDERED: ASPI-325 PO (13:40)
[2024-08-02] MEDS ORDERED: LIDO4LIQ EX (13:40)
[2024-08-02] MEDS ORDERED: METO-6 PO (13:40)
[2024-08-02] MEDS ORDERED: APIX5TAB PO (13:40)
[2024-08-02] MEDS ORDERED: PANT40T PO (13:40)
[2024-08-02] MEDS ORDERED: ATOR20TA50 PO (13:40)
[2024-08-02] MEDS ORDERED: LACT10SO3 PO (13:40)
[2024-08-02] MEDS ORDERED: ACET-1882 PO (13:40)
[2024-08-02] MEDS ORDERED: EMPA1TAB PO (13:40)
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
--- NOTE | 2024-08-03 15:59 | DVHPN2 ---
Consult Progress Note Date Seen: Aug 02, 2024 Subjective Patient reports: Other (refusing to go to [facility] fac[facility] ) Objective vital signs Vital Sign Date Time Temp Pulse Resp B/P (MAP) Pulse Ox O2 Delivery O2 Flow Rate FiO2 08/02/24 15:19 36.3 68 08/02/24 15:02 18 122/70 08/02/24 13:00 96 08/02/24 11:38 Room Air 0.0 08/02/24 11:38 21 Total Intake and Output 08/02/24 08/02/24 08/03/24 15:00 23:00 07:00 Intake Total 50 ml 450 ml Balance 50 ml 450 ml medications Physical Exam: General: Sedated and intubated. Neck: Supple. No masses. HEENT: PERRL. Normal lids and conjunctiva. Moist mucous membranes. Oropharynx without lesions, exudates or excessive erythema. Normal appearance of the external aspects of the nose and ears. Heart: Regular rhythm, tachycardic. No murmur. No lower extremity edema. Lungs: Decreased breath sounds bilaterally with crackles worse on the left side. Abdomen: Mildly distended. Non-tender. No masses or abdominal hernia. Msk: No digital cyanosis. Unable to assess strength and tone due to sedation. Skin: Warm and dry, no rashes. Neuro: Unable to assess due to sedation. Psych: Unable to assess mood and affect due to sedation. laboratory and microbiology Laboratory Tests 08/02/24 07:20 Test 08/02/24 07:20 Range/Units Serum Glucose 160 H 74-106 mg/dL Problem List/Assessment/Plan Problems(with codes): (1) Hepatitis C (2) Multiple fractures of ribs, right side, initial encounter for closed fracture (3) Syncope and collapse (4) PIC line (peripherally inserted central catheter) removal (5) Infection of implantable cardioverter-defibrillator (ICD) lead (6) Staphylococcus epidermidis bacteremia (7) Frequent falls (8) Rib fracture (9) Endocarditis (10) Alcohol intoxication Problem List/Assessment/Plan ID Problem List: - Coronary artery disease (CAD) - Diabetes mellitus - Multiple stent placements - Coronary artery bypass graft (CABG) - Congestive heart failure (CHF) - Chronic kidney disease (CKD) - Hyperlipidemia - History of myocardial infarctions (MIs) - Hepatitis C - Pulmonary embolism (PE) - Ventricular tachycardia (V tach) - Bilateral foot amputations related to diabetes - Alcohol use disorder - Bilateral shoulder arthroplasty - Left knee arthroplasty - Left decubitus ulcer - Ulcer on left heel - Sepsis due to methicillin - sensitive Staphylococcus aureus (MSSA) - Bacteremia - MSSE bacteremia - ICD lead vegetation - endocarditis Assessment This is a 63 y.o. male with a past medical history of CAD, diabetes mellitus, multiple stent placements, CABG, CHF, CKD, hyperlipidemia, prior MIs, PE, V tach with AICD placement, and bilateral foot amputations related to diabetes, who presents with chest pain for the past three days, radiating to his back, worsening, and associated with shortness of breath. Laboratory findings include elevated glucose of 376 mg/dL, WBC count of 8.1, platelets 200, sodium 138, BUN 11, and creatinine 0.79. 07/28: has not gotten repeat blood cultures yet , aspiration f left knee fluid is showing no organisms and evaluation of the fluid is largely a blood tap possibly consistent with ongoing infection 07/29: patient is positive for hepatitis C 07/30: If patient is refusing piccline patient can go to a [facility] facility and can receive daptomycin via peripheral line 07/31: patient had chest ct done and showed no evidence of acute intrathoracic pathology identified and did not find any residual abscess 08/01: patients repeat blood cultures remain no growth to date 08/02: Blood cultures have cleared for 5 days Plan: - due to substance abuse history patient is not a candidate for piccline so will discontinue - ideally patient should go to a [facility] facility and get IV daptomycin for 6 weeks if unable to acquire a discharge with SNF patient could potentially go on oral antibiotics but far from ideal and patient has a high risk of reinfection , [id number] due to limitations and patients choice not to do this would potentially give oral linazolid 600 milligrams 2x a day for 6 weeks if patient goes home but patient should not go home with piccline given substance abuse history - follow up with infectious disease in 4 weeks as outpatient for treatment of hepatitis C and monitor therapy - continue daptomycin, recommend 10mg/kg dosing on discharge for a total 6 weeks course. will need higher dose for endocarditis insetting of persistent prosthetic source (lead vegetation) and poor oral options thereafter - antibiotics to start once blood cultures after cleared please repeat - recommend CT chest to evaluate prior abscess seen at adjacent fracture site at [facility] to see if this is an additional source of infection - patient was treated for MSSA with 6weeks of ancef, this would not cover current MRSE infection and thus does not constitute treatment failure - ideally icd 10 and pacer lead should be removed, in consideration of prior CABG hx, recent rib fractures, uncontrolled diabetes this would likely be a difficult procedure w/ potential complications. would discuss w/ cardiology as patient does want icd 10 removed but if not a candidate at this will be attempt to clear cultures with antibiotics > patient will need surveillance culture at end of antibiotic therapy as well as repeat RYAN after antibiotics are complete and annually thereafter > risk of infection recurrence will remain so long as infected leads remain in place. may need to discuss outpatient surgery at [facility] if antibiotics are unable to control infection. - Address alcohol use; consider referral to counseling services. - will need BS to be <180 to optimize infection control, will need close pcp followup for this. Isolation Precautions: Standard Plan discussed with: Other Dietary Evaluation Review Comments: tight DM controlled with a CCHO-75 diet. Consider Daniel BID if no renal failure. consider Glucerna BID PO for nutrition supplements Expected Outcomes/Goals: controlled DM, gradually healed wounds, gradual weight gain. AAKASH ALBERTO MD Aug 03, 2024 15:59
== END 2024-08-02 17:52 | disposition home health service (06) | DRG 193 ==
LOC: ER 19:08 → EDBD 19:08 → OVERFLOW 22:40 → TELE-WESTW 23:40 → CENTRAL 07-23 21:15 → TELE-CENTR 07-23 21:49
PROVIDERS: ADMIT Student in an Organized Health Care Education/Training Program; ATTEND Student in an Organized Health Care Education/Training Program
PROC: 05H933Z Insertion of Infusion Device into Right Brachial Vein, Percutaneous Approach (ICD-10-PCS; 2024-07-24)
PROC: B54MZZA Ultrasonography of Right Upper Extremity Veins, Guidance (ICD-10-PCS; 2024-07-24)
PROC: 0S9D3ZZ Drainage of Left Knee Joint, Percutaneous Approach (ICD-10-PCS; 2024-07-26)
PROC: B24BZZ4 Ultrasonography of Heart with Aorta, Transesophageal (ICD-10-PCS; principal; 2024-07-27)
DX: I33.0 Acute and subacute infective endocarditis (principal); I50.43 Acute on chronic combined systolic (congestive) and diastolic (congestive) heart failure; I47.20 Ventricular tachycardia, unspecified; I25.3 Aneurysm of heart; M17.12 Unilateral primary osteoarthritis, left knee; I13.0 Hypertensive heart and chronic kidney disease with heart failure and stage 1 through stage 4 chronic kidney disease, or unspecified chronic kidney disease; J12.9 Viral pneumonia, unspecified; E78.5 Hyperlipidemia, unspecified; I25.10 Atherosclerotic heart disease of native coronary artery without angina pectoris; F10.10 Alcohol abuse, uncomplicated; Z20.822 Contact with and (suspected) exposure to COVID-19; I25.5 Ischemic cardiomyopathy; Y90.9 Presence of alcohol in blood, level not specified; F17.290 Nicotine dependence, other tobacco product, uncomplicated; Z96.611 Presence of right artificial shoulder joint; E11.22 Type 2 diabetes mellitus with diabetic chronic kidney disease; I36.1 Nonrheumatic tricuspid (valve) insufficiency; Z96.612 Presence of left artificial shoulder joint; Z96.652 Presence of left artificial knee joint; N18.9 Chronic kidney disease, unspecified; Z88.5 Allergy status to narcotic agent; I25.2 Old myocardial infarction; Z79.1 Long term (current) use of non-steroidal anti-inflammatories (NSAID); Z83.3 Family history of diabetes mellitus; Z79.891 Long term (current) use of opiate analgesic; Z86.711 Personal history of pulmonary embolism; Z95.1 Presence of aortocoronary bypass graft; Z95.810 Presence of automatic (implantable) cardiac defibrillator; Z98.61 Coronary angioplasty status; Z79.899 Other long term (current) drug therapy; Z76.5 Malingerer [conscious simulation]
CPT/HCPCS: 20611; 36415; 71045; 71260; 73030; 73560; 73700; 76942; 80048; 80053; 80074; 80202; 80307; 81001; 82962; 83036; 83605; 83735; 83880; 84100; 84443; 84484; 84550; 85007; 85025; 85027; 85610; 85730; 86141; 86592; 86703; 87040; 87077; 87081; 87086; 87186; 87205; 87389; 87426; 87804; 89051; 93005; 93312; 93926; 94640; 96365; 96375; 97110; 97163; 97530; 99152; G0378; J1815; J2250; J2405

== ENCOUNTER 2024-12-31 20:01 | Inpatient (IN) | payer MEDICAID ==
[~2024-12-31] VITALS: Ht 185.4 cm; Wt 71.0 kg
[~2024-12-31 20:01] MED LIST changes: +ACET-1882 PO; +APIX5TAB PO; +ASPI-325 PO; +ATOR20TA50 PO; +EMPA1TAB PO; -IBUP1TAB5 PO; +INDO-34 PO; +LACT10SO3 PO; +LIDO4LIQ EX; +LINE1TAB6 PO; +METO-6 PO; +PANT40T PO
--- NOTE | 2024-12-31 20:17 | ED.PDOC ---
SOB-HPI HPI Comments 64 year old male with an extensive Hx of 9x Cardiac Stents, DM, HTN, HI, High Lipids, PE, CABG, and a Vascular Surgery done yesterday at [facility], was BIBA for the c/c of SOB w/ associated Left Leg pain. Pt states that he has no alleviating factors, but a worsening factor upon laying down. Pt is noted to have necrosis to his left heal. No other associated symptoms, modifiers, recent injuries or sick contacts present at this time. Time Seen by MD: 20:09 Primary Care Provider: ? Reviewed notes: Nurses Notes, Multiple Games Dealer Notes, Medications, Allergies Information Source: Patient, Emergency Med Personnel Mode of Arrival: EMS Severity: Moderate Timing: Hours Duration: Since onset, Hours Context: At Rest, With Light Exertion PE Risk Factors: Recent Surgery History of: Other Prehospital treatment: 12 Lead EKG, Accucheck, Senior Php Developer, Oxygen Modifying Factors: Exertion, Laying flat If cough with SOB: Productive Past Medical History PAST MEDICAL HISTORY: CAD, CHF, CKF, DM, High Lipids, HI, PE Surgical History: CABG, PTCA, Tonsillectomy Family History Family History: Reviewed,noncontributory to illness Social History Smoker: Non-Smoker Alcohol: Occasionally Drugs: Denies Drug Use Lives In: Home Constitutional: denies: chills, diaphoresis, fatigue, fever, malaise, sweats, weakness, others EENTM: denies: blurred vision, double vision, ear bleeding, ear discharge, ear drainage, ear pain, ear ringing, eye pain, eye redness, hearing loss, mouth pain, mouth swelling, nasal discharge, nose bleeding, nose congestion, nose pain, photophobia, tearing, throat pain, throat swelling, voice changes, others Respiratory: reports: SOB at rest, shortness of breath; denies: cough, hemoptysis, orthopnea, SOB with excertion, stridor, wheezing, others Cardiovascular: denies: chest pain, dizzy spells, diaphoresis, Dyspnea on exertion, edema, irregular heart beat, left arm pain, lightheadedness, palpitations, PND, syncope, others Gastrointestinal: denies: abdomen distended, abdominal pain, blood streaked bowels, constipated, diarrhea, dysphagia, difficulty swallowing, hematemesis, melena, nausea, poor appetite, poor fluid intake, rectal bleeding, rectal pain, vomiting, others Genitourinary: denies: burning, dysuria, flank pain, frequency, hematuria, incontinence, penile discharge, penile sore, pain, testicle pain, testicle swelling, urgency, others Neurological: denies: dizziness, fainting, headache, left sided numbness, left sided weakness, numbness, paresthesia, pre-existing deficit, right sided numbness, right sided weakness, seizure, speech problems, tingling, tremors, weakness, others Musculoskeletal: denies: back pain, gout, joint pain, joint swelling, muscle pain, muscle stiffness, neck pain, others Integumetry: denies: bruises, change in color, change in hair/nails, dryness, laceration, lesions, lumps, rash, wounds, others Allergic/Immunocompromised: denies: Difficulty Healing, Frequent Infections, Hives, Itching, others Hematologic/Lymphatic: denies: anemia, blood clots, easy bleeding, easy bruising, swollen glands, others Endocrine: denies: excessive hunger, excessive sweating, excessive thirst, excessive urination, flushing, intolerance to cold, intolerance to heat, unexplained weight gain, unexplained weight loss, others Psychiatric: denies: anxiety, bipolar disorder, depression, hopeless, panic disorder, schizophrenia, sleepless, suicidal, others All Other Systems: Reviewed and Negative Physical Exam General Appearance: Moderate Distress, Normal, Thin HEENT: Normal ENT Inspection, Pharynx Normal, TMs Normal Neck: Full Range of Motion, Non-Tender, Normal, Normal Inspection Respiratory: Accessory Muscle Use, Chest Non-Tender, Lungs Clear, Normal Breath Sounds, Other (Tachypnic) Cardiovascular: No Edema, No JVD, No Murmur, No Gallop, Normal Peripheral Pulses, Regular Rate/Rhythm Breast Exam: Deferred Gastrointestinal: No Organomegaly, Non Tender, No Pulsatile Mass, Normal Bowel Sounds, Soft Genitalia: Deferred Pelvic: Deferred Rectal: Deferred Extremities: No calf tenderness, Normal range of motion, Non-tender, No pedal edema, Other (Prior Surgical Scares to Left lower Extremity, Heal necrosis noted. ) Musculoskeletal : Apperance: Normal Neurologic: Alert, No Motor Deficits, Normal Affect, Normal Mood, No Sensory Deficits Cerebellar Function: Normal Reflexes: Normal Skin: Dry, Normal Color, Warm Lymphatic: No Adenopathy Was a procedure done? Was a procedure done?: No Differential Dx Differential Diagnosis: Anxiety, Asthma, Bronchitis, Cardiogenic Shock, CHF, COPD, Hypertension, Hyperventilation, Myocardial infarction, Panic Attack, Pneumonia, Pneumothorax, PSVT, Pulmonary Embolism, Respiratory Distress, Pharyngitis X-Ray, Labs, Meds, VS Vital Signs Date Time Temp Pulse Resp B/P (MAP) Pulse Ox O2 Delivery O2 Flow Rate FiO2 12/31/24 21:12 60 20 135/66 12/31/24 20:42 60 20 130/68 12/31/24 20:32 61 20 97 Nasal Cannula* 3 32 12/31/24 20:32 98.4 65 20 130/68 (88) 98 98.4 12/31/24 20:11 60 12/31/24 20:05 98.2 74 14 133/68 (89) 97 98.2 12/31/24 20:05 97 Room Air* 0 21 Lab Test 12/31/24 22:30 12/31/24 21:30 12/31/24 20:34 Range/Units Lactic Acid Level Pending 2.2 *H 0.4-2.0 mmol/L Troponin I High Sensitivity 9 10 </=54 ng/L White Blood Count 6.7 4.4-10.8 10^3/uL Red Blood Count 4.46 L 4.5-5.90 10^6/uL Hemoglobin 13.8 13.5-17.5 g/dL Hematocrit 42.0 41.0-53.0 % Mean Corpuscular Volume 94.2 80.0-100.0 fL Mean Corpuscular Hemoglobin 31.0 28.0-32.0 pg Mean Corpuscular Hemoglobin Concent 33.0 32.0-36.0 g/dL Red Cell Distribution Width 14.9 H 11.8-14.3 % Platelet Count 137 L 140-450 10^3/uL Mean Platelet Volume 8.1 6.9-10.8 fL Neutrophils (%) (Auto) 74.2 37.0-80.0 % Lymphocytes (%) (Auto) 13.7 10.0-50.0 % Monocytes (%) (Auto) 7.5 0.0-12.0 % Eosinophils (%) (Auto) 3.8 0.0-7.0 % Basophils (%) (Auto) 0.8 0.0-2.0 % Neutrophils # (Auto) 5.0 1.6-8.6 10 ^3/uL Lymphocytes # (Auto) 0.9 0.4-5.4 10 ^3/uL Monocytes # (Auto) 0.5 0-1.3 10 ^3/uL Eosinophils # (Auto) 0.3 0-0.8 10 ^3/uL Basophils # (Auto) 0.1 0-0.2 10 ^3/uL Nucleated Red Blood Cells 0.0 % Prothrombin Time 10.2 9.3-11.8 sec Prothrombin Time INR 0.96 0.9-1.15 Activated Partial Thromboplast Time 29.0 24.5-34.5 SEC D-Dimer, Quantitative 0.66 H 0.0-0.49 mg/L FEU Sodium Level 137 136-145 mmol/L Potassium Level 4.7 3.5-5.1 mmol/L Chloride Level 103 98-107 mmol/L Carbon Dioxide Level 25 20-31 mmol/L Anion Gap 9 5-15 Blood Urea Nitrogen 13 9-23 mg/dL Creatinine 0.86 0.700-1.30 mg/dL Glomerular Filtration Rate Calc 97 >90 mL/min BUN/Creatinine Ratio 15.1 10.0-20.0 Serum Glucose 273 H 74-106 mg/dL Calcium Level 9.9 8.7-10.4 mg/dL Total Bilirubin 0.4 0.2-1.0 mg/dL Aspartate Amino Transferase (AST) 15 13-40 U/L Alanine Aminotransferase (ALT) < 9 7-40 U/L Alkaline Phosphatase 95 46-116 U/L B-Type Natriuretic Peptide 214.66 0-100 pg/mL Total Protein 7.0 5.7-8.2 g/dL Albumin 4.3 3.2-4.8 g/dL Current Medications Medications (Trade) Dose Ordered Sig/Sunny Route Start Time Stop Time Status Last Admin Ondansetron HCl (Zofran) 4 mg ONCE ONCE IV 12/31/24 20:15 12/31/24 20:16 DC 12/31/24 20:43 Morphine Sulfate 4 mg ONCE ONCE IV 12/31/24 20:15 12/31/24 20:16 DC 12/31/24 20:42 PATIENT: GEORGIANA VILLAR ACCT: [id number] UNIT: [id number] : 1960 LOC: ER ROOM / BED: / AGE / SEX: 64 / M ADM STATUS: REG ER SERVICE 05 ORDERING PHYSICIAN: IOANA ADAMS MD PROCEDURE(s): CXRP - CHEST PORTABLE REASON: SOB ORDER NUMBER(s): [id number], ACCESSION NUMBER(s): [id number] CHEST RADIOGRAPH Indication: SOB Technique: Single frontal view of the chest was obtained Comparison: XY CHEST PORTABLE on DOS: 07/22/24, XY CHEST XRAY 1 VIEW on DOS: 04/26/24, XY CHEST PORTABLE on DOS: 04/24/24 FINDINGS: Lines and Tubes: Central line in place from the right with the tip in the super ior vena cava. Dual-chamber pacemaker in place with pulse generator over the left chest. Sternal wire sutures in place Lungs: Increased density in the mid right chest may represent airspace disease. Pleura: No effusion. No pneumothorax. Cardiomediastinal contours: Unremarkable Bones: No acute osseous abnormality. IMPRESSION: 1. Increased density mid right chest may represent airspace disease. Time of 1ST Reevaluation: 20:40 Reevaluation 1ST: Unchanged Patient Education/Counseling: Diagnosis, Treatment, Need For Follow Up Family Education/Counseling: No Family Present Sepsis focused exam: focus exam completed, time: (2129) SEPSIS Sepsis Screen Recent Procedure: Yes On Antibiotic Therapy: Yes Respiratory Rate >20: No Heart Rate >90: No Temp<36 C (96.8 F) or >38.3 C: No SBP <90 or MAP <65 mmHG: No New Acute Mental Status Change: No Is the patient on CPAP, BIPAP,: No IV fluid challenge completed?: Yes Physician Orders Troponin-I Hs (01/01/25 00:00) Troponin-I Hs (01/01/25 03:00) Troponin-I Hs (01/01/25 06:00) Blood Culture (12/31/24 20:06) Chest Portable (12/31/24 20:06) Electrocardigram (12/31/24 20:06) L Foot 2 View Xray (12/31/24 22:45) Piperacillin-Tazob 3.375gm (Zosyn 3.375g (12/31/24 23:00) Vital Signs Date Time Temp Pulse Resp B/P (MAP) Pulse Ox O2 Delivery O2 Flow Rate FiO2 12/31/24 21:12 60 20 135/66 12/31/24 20:42 60 20 130/68 12/31/24 20:32 61 20 97 Nasal Cannula* 3 32 12/31/24 20:32 98.4 65 20 130/68 (88) 98 98.4 12/31/24 20:11 60 12/31/24 20:05 98.2 74 14 133/68 (89) 97 98.2 12/31/24 20:05 97 Room Air* 0 21 Laboratory Tests Test 12/31/24 20:34 12/31/24 22:30 Lactic Acid Level 2.2 mmol/L (0.4-2.0) *H Pending White Blood Count 6.7 10^3/uL (4.4-10.8) Medications Medications Dose Ordered Sig/Sunny Route Start Time Stop Time Status Last Admin Dose Admin Morphine Sulfate 4 mg ONCE ONCE IV 12/31/24 20:15 12/31/24 20:16 DC 12/31/24 20:42 Ondansetron HCl 4 mg ONCE ONCE IV 12/31/24 20:15 12/31/24 20:16 DC 12/31/24 20:43 Departure 1 Departure Time of Disposition: 22:54 Impression: Primary Impression: Dehydration Additional Impressions: Foot ulcer due to secondary DM Cellulitis of left foot Type 2 diabetes mellitus with hyperglycemia Disposition: 09 ADMITTED INPATIENT Admit to: Med Surg Condition: Critical Comments Left Foot Pain and Diabetic Foot Ulcer in Patient with Complex Cardiac History Chief Complaint: Left foot pain, shortness of breath, and malaise. History of Present Illness: Patient is a 64-year-old male with extensive cardiovascular history including nine prior cardiac stents, coronary artery bypass graft, and history of pulmonary embolism. He also has type 2 diabetes, hypertension, coronary artery disease, and hyperlipidemia. The patient underwent vascular surgery to improve circulation to his legs at [place] approximately one week ago. He presents today with left leg pain, most pronounced in the lower leg and left foot. Patient has a history of partial left foot amputation and a large diabetic ulcer on the heel of the left foot, which is the primary source of his current pain. He additionally reports shortness of breath and general malaise. The patient appears ill and mildly cachectic on presentation. Review of Systems: Constitutional: Positive for malaise. Respiratory: Positive for shortness of breath. Cardiovascular: No chest pain reported. Musculoskeletal: Positive for left leg and foot pain. Skin: Diabetic foot ulcer on left heel. All other systems: Negative or not assessed. Medications: Not specifically mentioned in drugless physician, but patient likely on: - Antidiabetic medication - Antihypertensive medication - Lipid-lowering medication - Anticoagulation or antiplatelet therapy given history of PE and cardiac stents Allergies: No known allergies mentioned in drugless physician. Past Medical History: 1. Coronary artery disease with nine prior cardiac stents 2. Type 2 diabetes mellitus 3. Hypertension 4. Hyperlipidemia 5. History of pulmonary embolism 6. Peripheral vascular disease requiring recent vascular surgery Past Surgical History: 1. Coronary artery bypass graft surgery 2. Nine cardiac stent placements 3. Partial left foot amputation 4. Recent vascular surgery to legs (approximately one week ago at [place]) Physical Exam: General: Patient appears ill and mildly cachectic. Skin: 3 cm diameter diabetic foot ulcer on the heel of the left foot. Partial amputation of the left foot distally. No significant erythema to the foot or lower leg. Musculoskeletal: Left calf is not tender to palpation. Lab Results: WBC: 6.7 (normal) Platelets: 137 (slightly low) Blood glucose: 273 mg/dL (elevated) Chemistries: Otherwise unremarkable Lactate: 2.2 (borderline elevated, normal limit 2.1) D-dimer: 0.66 (likely normal for age and circumstance) Imaging and Other Relevant Results: No imaging studies mentioned in drugless physician. Medical Decision Making: Summary Statement: 64-year-old male with complex cardiovascular history and diabetes presents with left foot pain, shortness of breath, and malaise. Physical exam reveals a 3 cm diabetic foot ulcer on the left heel with partial f oot amputation but without significant erythema. Labs show hyperglycemia and borderline elevated lactate. Problem List: 1. Left foot diabetic ulcer with suspected cellulitis 2. Type 2 diabetes with hyperglycemia 3. Possible osteomyelitis of left foot 4. Coronary artery disease with multiple stents 5. Recent vascular surgery 6. History of pulmonary embolism Differential Diagnosis: 1. Cellulitis of left foot 2. Osteomyelitis of left foot 3. Diabetic foot ulcer with infection 4. Peripheral vascular disease with ischemic pain 5. Post-surgical complication from recent vascular surgery 6. Recurrent pulmonary embolism (given shortness of breath) ED Course: Patient received IV fluids and was started on Zosyn (piperacillin- tazobactam) for broad-spectrum antibiotic coverage. Decision made to admit patient for further management of suspected cellulitis, diabetic foot ulcer, hyperglycemia, and to evaluate for possible osteomyelitis. Assessment and Plan: 1. Left Foot Diabetic Ulcer with Suspected Cellulitis: - Continue IV Zosyn for broad-spectrum coverage - Wound care consultation - Elevate affected extremity - Daily wound assessment and dressing changes 2. Type 2 Diabetes with Hyperglycemia: - Blood glucose monitoring q6h - Adjust insulin regimen as needed - Endocrinology consultation for diabetes management 3. Possible Osteomyelitis of Left Foot: - MRI of left foot to evaluate for bone involvement - Infectious disease consultation if osteomyelitis confirmed - Consider bone biopsy if imaging suggestive 4. Cardiovascular Status: - Continue home medications for CAD, HTN, and hyperlipidemia - Cardiology consultation given complex cardiac history - Monitor for cardiac complications 5. Disposition: - Admit to medical floor for IV antibiotics, wound care, and diabetes management - Vascular surgery follow-up given recent procedure - Anticipate possible prolonged hospitalization if osteomyelitis confirmed Additional Notes: Patient requires admission for management of diabetic foot ulcer with suspected cellulitis and possible osteomyelitis. Billing Information: ICD-10: L97.429 - Non-pressure chronic ulcer of left heel and midfoot with unspecified severity ICD-10: L03.115 - Cellulitis of left lower limb ICD-10: E11.621 - Type 2 diabetes mellitus with foot ulcer ICD-10: M86.671 - Other osteomyelitis, right ankle and foot ICD-10: I25.10 - Atherosclerotic heart disease of [place] coronary artery without angina pectoris ICD-10: I10 - Essential (primary) hypertension ICD-10: E78.5 - Hyperlipidemia, unspecified ICD-10: I26.99 - Other pulmonary embolism without acute cor pulmonale Critical Care Note Critical Care Time?: Yes (35 min-critical care time only) Critical care comment: Total critical care time: Approximately 36 minutes Due to a high probability of clinically significant, life threatening deterioration, the patient required my highest level of preparedness to intervene emergently and I personally spent this critical care time directly and personally managing the patient. This critical care time included obtaining a history; examining the patient; pulse oximetry; ordering and review of studies; arranging urgent treatment with development of a management plan; evaluation of patient's response to treatment; frequent reassessment; and, discussions with other providers. This critical care time was performed to assess and manage the high probability of imminent, life-threatening deterioration that could result in multi-organ failure. It was exclusive of separately billable procedures and treating other patients. Stability Stability form required: No Heart Score Heart Score: Heart Score Response (Comments) Value History N/A 0 EKG N/A 0 Age N/A 0 Risk Factors N/A 0 Troponin N/A 0 Total 0 I personally scribed for IOANA ADAMS MD ([email or web address]) on 12/31/24 at 20:17. Electronically submitted by Bradley Coelho ([email or web address]). I personally scribed for IOANA ADAMS MD ([email or web address]) on 12/31/24 at 21:46. Electronically submitted by Bradley Coelho ([email or web address]). IOANA ADAMS MD Dec 31, 2024 20:17
[2024-12-31 20:32] VITALS: PULSE 61; RESP 20; O2SAT 97
[2024-12-31] MEDS: MORPHINE SULFATE 4 MG/ML SYR/VIAL IV ONE (20:42)
[2024-12-31] MEDS: ONDANSETRON HCL 4 MG/2 ML VIAL IV ONE (20:43)
[2024-12-31 20:45] LABS: Hematocrit 42.0 % (41.0-53.0); Hemoglobin 13.8 g/dL (13.5-17.5); Mean Corpuscular Hemoglobin 31.0 pg (28.0-32.0); Mean Corpuscular Volume 94.2 fL (80.0-100.0); Nucleated Red Blood Cells % 0.0 %
[2024-12-31 21:02] LABS: Albumin 4.3 g/dL (3.2-4.8); Alkaline Phosphatase 95 U/L (46-116); Anion Gap 9 (5-15); BUN/Creatinine Ratio 15.1 (10.0-20.0); Blood Urea Nitrogen 13 mg/dL (9-23); Calcium 9.9 mg/dL (8.7-10.4); Carbon Dioxide 25 mmol/L (20-31); Chloride 103 mmol/L (98-107); INR 0.96 (0.9-1.15); Partial Thromboplastin Time 29.0 SEC (24.5-34.5); Potassium 4.7 mmol/L (3.5-5.1); Prothrombin Time 10.2 sec (9.3-11.8); Sodium 137 mmol/L (136-145); Total Protein 7.0 g/dL (5.7-8.2)
[2024-12-31 21:03] LABS: Alanine Aminotransferase < 9 U/L (7-40); Bilirubin, Total 0.4 mg/dL (0.2-1.0); Glucose 273 mg/dL (74-106)
--- NOTE | 2024-12-31 21:04 | DVH ---
CHEST RADIOGRAPH Indication: SOB Technique: Single frontal view of the chest was obtained Comparison: XY CHEST PORTABLE on DOS: 07/22/24, XY CHEST XRAY 1 VIEW on DOS: 04/26/24, XY CHEST PORTAB LE on DOS: 04/24/24 FINDINGS: Lines and Tubes: Central line in place from the right with the tip in the superior vena cava. Dual-c hamber pacemaker in place with pulse generator over the left chest. Sternal wire sutures in place Lungs: Increased density in the mid right chest may represent airspace disease. Pleura: No effusion. No pneumothorax. Cardiomediastinal contours: Unremarkable Bones: No acute osseous abnormality. IMPRESSION: 1. Increased density mid right chest may represent airspace disease.
[2024-12-31 21:05] LABS: Lactic Acid w/Reflex 2.2 mmol/L (0.4-2.0)
[2024-12-31] MEDS ORDERED: ACETAMINOPHEN 325 MG TAB PO PRN (23:15)
[2024-12-31] MEDS ORDERED: ONDANSETRON HCL 4 MG/2 ML VIAL IV PRN (23:15)
[2024-12-31] MEDS ORDERED: DEXTROSE (50%) 50ML SYRG IV PRN (23:15)
[2024-12-31] MEDS ORDERED: NITROGLYCERIN 0.4 MG SL TAB SL PRN (23:15)
[2024-12-31] MEDS: PIPERACILLIN-TAZOB 3.375GM 100 ML IV ONE (23:19)
--- NOTE | 2024-12-31 23:24 | DVHHP2 ---
History of Present Illness Reason for Visit: Acute respiratory distress History of Present Illness The patient is a 64-year-old male with multiple past medical history including CHF, DM, MA, PE, and diabetes mellitus who presented to [facility] ED with complaint of shortness of breaths. Patient reports he has been experiencing difficulty breathing with associated left leg pain; noted to have necrosis to his left heel. Patient was seen and evaluated in the ED, laboratory data shows WBC 6.7, platelets 137, sodium 137, potassium 4.7, BUN 13, creatinine 0.86, glucose 273, lactic acid 2.2 trending down to 1.6, troponin 10, BNP 214.66, D-dimer 0.66, blood pressure 135/83, heart rate 60, temperature 98.4 F, O2 saturation 97% on oxygen. Chest x-ray showed increased density mid right chest may represent airspace disease. Patient was given breathing treatment, please see medication orders section in the computer. On my assessment, patient denied chest pain, no headache, no dizziness, currently on oxygen, no nausea, no vomiting, no fever, no chills. Patient was admitted for further evaluation and medical management. Past Medical History CAD, CHF, CKF, DM, High Lipids, MA, PE Past Surgical History CABG, PTCA, Tonsillectomy Family History Reviewed, noncontributory to the management of this case. Past Social History The patient lives at home, denies smoking, alcohol or illicit drugs abuse. Review of Systems Constitutional: Yes: Weakness; No: Fever, Chills, Sweats, Malaise, Other Eyes: No: Pain, Vision change, Conjunctivae inflammation, Eyelid inflammation, Other, Redness ENT: No: Ear pain, Ear discharge, Nose pain, Nose discharge, Nose congestion, Mouth pain, Mouth swelling, Throat pain, Throat swelling, Other Respiratory: Shortness of breath, Other (SOB at rest); No: Cough, Dry, SOB with excertion, Wheezing, Hemoptysis, Pleuritic Pain, Sputum, Wheezing Cardiovascular: No: Chest Pain, Palpitations, Orthopnea, Paroxysmal Noc. Dyspnea, Edema, Lt Headedness, Other Gastrointestinal: No: Nausea, Vomiting, Abdominal Pain, Diarrhea, Constipation, Melena, Hematochezia, Other Genitourinary: No Dysuria, No Frequency, No Incontinence, No Hematuria, No Retention, No Other Musculoskeletal: other (Left leg pain); No: neck pain, shoulder pain, arm pain, back pain, hand pain, leg pain, foot pain Skin: No: Rash, Lesions, Jaundice, Bruising, Other Neurological: No: Weakness, Numbness, Incoordination, Change in speech, Confusion, Seizures, Other Allergies: Coded Allergies: Hydrocodone (Verified Allergy, Severe, LEG SWELLING, 04/25/24) Ketorolac Tromethamine (Verified Allergy, Unknown, 04/03/24) Exam Vital Signs Vital Signs Date Time Temp Pulse Resp B/P (MAP) Pulse Ox O2 Delivery O2 Flow Rate FiO2 12/31/24 21:12 60 20 135/66 12/31/24 20:32 97 Nasal Cannula* 3 32 12/31/24 20:32 98.4 98.4 General Appearance: Alert, Oriented X3, Cooperative, No acute distress HEENT: Atraumatic, PERRLA, EOMI, Mucous membr. moist/pink Respiratory: Clear to auscultation, Normal air movement Cardiovascular: Regular rate, Normal S1, Normal S2, No murmurs Abdominal: Normal bowel sounds, Soft, No tenderness, No hepatospenomegaly, No masses Extremities: No clubbing, No cyanosis, No edema, Normal pulses, No tenderness/swelling Skin: No rashes, No breakdown, No significant lesion Neuro: Normal speech, Normal tone, Sensation intact, Cranial nerves 3-12 NL, Reflexes 2+, Other (Generalized weakness) Psych/Mental Status: Mental status NL, Mood NL Labs/Xrays Labs Test 12/31/24 22:30 12/31/24 21:30 12/31/24 20:34 Range/Units Lactic Acid Level 1.6 0.4-2.0 mmol/L Troponin I High Sensitivity 9 </=54 ng/L White Blood Count 6.7 4.4-10.8 10^3/uL Red Blood Count 4.46 L 4.5-5.90 10^6/uL Hemoglobin 13.8 13.5-17.5 g/dL Hematocrit 42.0 41.0-53.0 % Mean Corpuscular Volume 94.2 80.0-100.0 fL Mean Corpuscular Hemoglobin 31.0 28.0-32.0 pg Mean Corpuscular Hemoglobin Concent 33.0 32.0-36.0 g/dL Red Cell Distribution Width 14.9 H 11.8-14.3 % Platelet Count 137 L 140-450 10^3/uL Mean Platelet Volume 8.1 6.9-10.8 fL Neutrophils (%) (Auto) 74.2 37.0-80.0 % Lymphocytes (%) (Auto) 13.7 10.0-50.0 % Monocytes (%) (Auto) 7.5 0.0-12.0 % Eosinophils (%) (Auto) 3.8 0.0-7.0 % Basophils (%) (Auto) 0.8 0.0-2.0 % Neutrophils # (Auto) 5.0 1.6-8.6 10 ^3/uL Lymphocytes # (Auto) 0.9 0.4-5.4 10 ^3/uL Monocytes # (Auto) 0.5 0-1.3 10 ^3/uL Eosinophils # (Auto) 0.3 0-0.8 10 ^3/uL Basophils # (Auto) 0.1 0-0.2 10 ^3/uL Nucleated Red Blood Cells 0.0 % Prothrombin Time 10.2 9.3-11.8 sec Prothrombin Time INR 0.96 0.9-1.15 Activated Partial Thromboplast Time 29.0 24.5-34.5 SEC D-Dimer, Quantitative 0.66 H 0.0-0.49 mg/L FEU Sodium Level 137 136-145 mmol/L Potassium Level 4.7 3.5-5.1 mmol/L Chloride Level 103 98-107 mmol/L Carbon Dioxide Level 25 20-31 mmol/L Anion Gap 9 5-15 Blood Urea Nitrogen 13 9-23 mg/dL Creatinine 0.86 0.700-1.30 mg/dL Glomerular Filtration Rate Calc 97 >90 mL/min BUN/Creatinine Ratio 15.1 10.0-20.0 Serum Glucose 273 H 74-106 mg/dL Calcium Level 9.9 8.7-10.4 mg/dL Total Bilirubin 0.4 0.2-1.0 mg/dL Aspartate Amino Transferase (AST) 15 13-40 U/L Alanine Aminotransferase (ALT) < 9 7-40 U/L Alkaline Phosphatase 95 46-116 U/L B-Type Natriuretic Peptide 214.66 0-100 pg/mL Total Protein 7.0 5.7-8.2 g/dL Albumin 4.3 3.2-4.8 g/dL PATIENT: GEORGIANA VILLAR ACCT: [id number] UNIT: [id number] : 1960 LOC: ER ROOM / BED: / AGE / SEX: 64 / M ADM STATUS: REG ER SERVICE 05 ORDERING PHYSICIAN: IOANA ADAMS MD PROCEDURE(s): CXRP - CHEST PORTABLE REASON: SOB ORDER NUMBER(s): [id number], ACCESSION NUMBER(s): [id number] CHEST RADIOGRAPH Indication: SOB Technique: Single frontal view of the chest was obtained Comparison: XY CHEST PORTABLE on DOS: 07/22/24, XY CHEST XRAY 1 VIEW on DOS: 04/26/24, XY CHEST PORTABLE on DOS: 04/24/24 FINDINGS: Lines and Tubes: Central line in place from the right with the tip in the superior vena cava. Dual-chamber pacemaker in place with pulse generator over the left chest. Sternal wire sutures in place Lungs: Increased density in the mid right chest may represent airspace disease. Pleura: No effusion. No pneumothorax. Cardiomediastinal contours: Unremarkable Bones: No acute osseous abnormality. IMPRESSION: 1. Increased density mid right chest may represent airspace disease. SEPSIS Sepsis Screen Date sepsis recognized/suspect: Dec 31, 2024 Time Sepsis recognized/suspect: 2041 Recent Procedure: Yes On Antibiotic Therapy: Yes Respiratory Rate >20: No Heart Rate >90: No Temp<36 C (96.8 F) or >38.3 C: No SBP <90 or MAP <65 mmHG: No New Acute Mental Status Change: No Is the patient on CPAP, BIPAP,: No IV fluid challenge completed?: Yes Physician Orders Troponin-I Hs (01/01/25 00:00) Troponin-I Hs (01/01/25 03:00) Troponin-I Hs (01/01/25 06:00) Blood Culture (12/31/24 20:06) Chest Portable (12/31/24 20:06) Electrocardigram (12/31/24 20:06) L Foot 2 View Xray (12/31/24 22:45) Piperacillin-Tazob 3.375gm (Zosyn 3.375g (12/31/24 23:00) Mrsa Screen (12/31/24 23:15) Vital Signs Date Time Temp Pulse Resp B/P (MAP) Pulse Ox O2 Delivery O2 Flow Rate FiO2 12/31/24 21:12 60 20 135/66 12/31/24 20:42 60 20 130/68 12/31/24 20:32 61 20 97 Nasal Cannula* 3 32 12/31/24 20:32 98.4 65 20 130/68 (88) 98 98.4 12/31/24 20:11 60 12/31/24 20:05 98.2 74 14 133/68 (89) 97 98.2 12/31/24 20:05 97 Room Air* 0 21 Laboratory Tests Test 12/31/24 20:34 12/31/24 22:30 Lactic Acid Level 2.2 mmol/L (0.4-2.0) *H 1.6 mmol/L (0.4-2.0) White Blood Count 6.7 10^3/uL (4.4-10.8) Medications Medications Dose Ordered Sig/Sunny Route Start Time Stop Time Status Last Admin Dose Admin Morphine Sulfate 4 mg ONCE ONCE IV 12/31/24 20:15 12/31/24 20:16 DC 12/31/24 20:42 4 MG Ondansetron HCl 4 mg ONCE ONCE IV 12/31/24 20:15 12/31/24 20:16 DC 12/31/24 20:43 4 MG Piperacillin Sod/ Tazobactam Sod 100 ml @ 100 mls/hr ONCE ONCE IV 12/31/24 23:00 12/31/24 23:59 12/31/24 23:19 100 MLS/HR Assessment/Plan Assessment/Plan Acute respiratory distress Dehydration CHF exacerbation, unspecified Elevated D-dimer Foot ulcer due to secondary DM Cellulitis of left foot Type 2 diabetes mellitus with hyperglycemia Plan 1. Admit to telemetry unit 2. Breathing treatment 3. Pain control management 4. Management of fluids and electrolytes 5. Consultation for hospitalist 6. Diagnostic tests chest x-ray 7. DVT prophylaxis-on aspirin 8. Repeat labs CBC, CMP in a.m. 9. Continue with current medical management 10. Treatment plan discussed with patient and RN. Patient verbalized understanding. Plan discussed with: Patient, Other (RN) Problem List: (1) Acute respiratory distress (2) Dehydration (3) Cellulitis of left foot (4) Foot ulcer due to secondary DM (5) Elevated d-dimer (6) CHF exacerbation (7) Type 2 diabetes mellitus with hyperglycemia Date of Service: Dec 31, 2024 Billing Provider: TOMÁS LEON DNP Common Visit Codes: [id number] INP/OBS CARE (HIGH) TOMÁS LEON DNP Dec 31, 2024 23:24
[2024-12-31] MEDS: IOHEXOL 350 MG/ML 100ML IJ ONE (23:45)
[2025-01-01] VITALS (9 sets, daily range): BP systolic 111–138; BP diastolic 58–83; PULSE 56–64; RESP 16–18; TEMP 97.3–98.2; O2SAT 95–99
[2025-01-01] MEDS: ACCU-CHEK COMFORT CURVE STRIP VI SCH
[2025-01-01] MEDS: InsuLIN REG 1unit/0.01ml Soln (100units/ml) SC SCH (01:30)
[2025-01-01] MEDS: MORPHINE SULFATE INJ 2 MG/ml SYRG IV PRN ×2 (01:33→15:19)
--- NOTE | 2025-01-01 01:58 | DVH ---
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 Overlying soft tissues are gr ossly intact with moderate swelling noted. Atherosclerotic vascular calcifications are identified. No definite radiographic evidence of osteomyelitis.
--- NOTE | 2025-01-01 02:38 | DVH ---
CT Chest without intravenous contrast INDICATION: PAIN TECHNIQUE: Multidetector spiral CT of the chest was performed from the lung apices to the upper abdom en. Axial, coronal and sagittal multiplanar reformats were performed. Radiation Dose : 1. Chest: CTDI volume is 19.18 mGy. Dose-length product is 828.94 mGy*cm The dose indicators for CT are the volume Computed Tomography (CT) Dose Index (CTDIvol) and the Dose Length Product (DLP), and are measured in units of mGy and mGy-cm, respectively. These indicators are not patient dose, but values generated from the CT scanner acquisition factors. The report includes radiation exposure data for exposures received during this examination. Comparison: CT CHEST WITH CONTRAST on DOS: 07/29/24, US CHEST ULTRASOUND on DOS: 05/07/24 Findings: Lower neck: Normal thyroid. Lungs: Moderate posterior bibasilar atelectasis. Diffuse bilateral ground-glass opacity and sequelae of paraseptal emphysematous change. No evidence of pleural effusion or pneumothorax. Heart/Vascular Structures: Normal heart size. No pericardial effusion. Cardiac pacing leads and media n sternotomy sutures. Atherosclerotic vascular calcifications. Lymph Nodes: No adenopathy Pleura: No pleural effusion or significant pneumothorax. Musculoskeletal: No acute osseous abnormality. Old healed right posterolateral 6th rib fracture. No a cute fractures are identified. Soft tissues: Normal. Upper abdomen: Small hiatal hernia. Limited portions of the upper abdomen are unremarkable. IMPRESSION: 1. Bibasilar atelectasis, diffuse bilateral ground-glass opacity and sequelae of paraseptal emphysema with biapical bullous emphysematous change. Radiation optimization: All CT scans at this facility use at least one of these dose optimization mitchel hniques: automated exposure control mA and/or kV adjustment per patient size (includes targeted exam s where dose is matched to clinical indication) or iterative reconstruction.
[2025-01-01] MEDS: SODIUM CHLOR 0.9% PF (SALINE LOCK) 10ML VIAL/SYR IV SCH (06:01)
[2025-01-01] MEDS: PIPERACILLIN-TAZOB 3.375GM 100 ML IV SCH (06:02)
[2025-01-01 08:05] LABS: Hematocrit 37.1 % (41.0-53.0); Hemoglobin 12.6 g/dL (13.5-17.5); Mean Corpuscular Hemoglobin 31.6 pg (28.0-32.0); Mean Corpuscular Volume 92.7 fL (80.0-100.0); Nucleated Red Blood Cells % 0.2 %
[2025-01-01 08:27] LABS: Albumin 3.7 g/dL (3.2-4.8); Alkaline Phosphatase 75 U/L (46-116); Anion Gap 9 (5-15); BUN/Creatinine Ratio 13.2 (10.0-20.0); Blood Urea Nitrogen 12 mg/dL (9-23); Calcium 9.3 mg/dL (8.7-10.4); Carbon Dioxide 24 mmol/L (20-31); Chloride 105 mmol/L (98-107); Potassium 3.9 mmol/L (3.5-5.1); Sodium 138 mmol/L (136-145); Total Protein 6.0 g/dL (5.7-8.2)
[2025-01-01 08:28] LABS: Alanine Aminotransferase < 9 U/L (7-40); Bilirubin, Total 0.4 mg/dL (0.2-1.0); Glucose 226 mg/dL (74-106)
[2025-01-01] MEDS: FAMOTIDINE (10MG/ML) 2ML VL IV SCH (09:21)
[2025-01-01] MEDS: APIXABAN 5 MG TAB PO SCH (09:22)
[2025-01-01] MEDS: CARVEDILOL 3.125 MG TAB PO SCH (10:00)
[2025-01-01] MEDS ORDERED: HYDROcodone-ACET 5/325MG TAB PO PRN (13:00)
[2025-01-01] MEDS ORDERED: TRAM50TA2 PO (15:26)
[2025-01-01] MEDS ORDERED: HYDR2TAB58 PO (15:26)
[2025-01-01] MEDS: TAMSULOSIN HYDROCHLORIDE 0.4 MG CAP PO SCH (16:45)
--- NOTE | 2025-01-01 18:50 | DVHPN2 ---
Subjective Still some pains Reviewed: Care Plan, H&P, Labs, Medications, Previous Orders, Radiology Changes from previous H/P or p: No Changes Respiratory: Shortness of breath Musculoskeletal: other (Left leg pain) Objective Vitals Vital Signs Date Time Temp Pulse Resp B/P (MAP) Pulse Ox O2 Delivery O2 Flow Rate FiO2 01/01/25 16:37 98.0 56 16 124/71 (88) 97 98.0 01/01/25 08:00 Nasal Cannula* 2 28 Intake/Output Intake and Output 01/01/25 07:00 Intake Total 560 ml Balance 560 ml Intake Oral 560 ml General Appearance: Alert, Oriented X3, Cooperative, No acute distress HEENT: Atraumatic Lungs: Clear to auscultation Cardiovascular: Regular rate Abdomen: Normal bowel sounds, Soft, No tenderness Extremities: Other (Left foot and heel tenderness with some swelling in left leg tenderness/chronic pain) Medications Current Medications Medications Dose Ordered Sig/Sunny Route Start Time Stop Time Status Last Admin Dose Admin Tamsulosin HCl 0.4 mg QPM PO 01/01/25 18:00 01/01/25 16:45 0.4 MG Atorvastatin Calcium 20 mg HS PO 01/01/25 22:00 Carvedilol 3.125 mg Q12HR PO 01/01/25 10:00 Famotidine 20 mg DAILY IV 01/01/25 10:00 01/01/25 09:21 20 MG Diagnostic Test (Pha) 1 strip IQ4HR 01/01/25 00:00 01/01/25 16:54 1 STRIP Insulin Human Regular IQ4HR SC 01/01/25 00:00 01/01/25 16:55 6 UNITS Dextrose 50 ml UD PRN IV 12/31/24 23:15 Sodium Chloride 10 ml Q8HR IV 01/01/25 06:00 01/01/25 06:01 10 ML Ondansetron HCl 4 mg Q4HP PRN IV 12/31/24 23:15 Docusate Sodium 100 mg BIDPRN PRN PO 12/31/24 23:15 Acetaminophen 650 mg Q6HP PRN PO 12/31/24 23:15 Nitroglycerin 0.4 mg Q5MINP PRN SL 12/31/24 23:15 Morphine Sulfate 2 mg Q30M PRN IV 12/31/24 23:15 01/01/25 11:31 2 MG Apixaban 5 mg BID PO 01/01/25 10:00 01/01/25 09:22 5 MG Piperacillin Sod/ Tazobactam Sod 100 ml @ 25 mls/hr Q8HR IV 01/01/25 06:00 01/01/25 13:36 25 MLS/HR Morphine Sulfate 2 mg Q4HPRN PRN IV 01/01/25 13:00 01/01/25 15:19 2 MG Tramadol HCl 50 mg Q6HP PRN PO 01/01/25 13:45 01/01/25 17:06 50 MG Laboratory Results Laboratory Tests 01/01/25 05:30 Chemistry Test 12/31/24 20:34 01/01/25 05:30 Albumin 4.3 g/dL (3.2-4.8) 3.7 g/dL (3.2-4.8) Calcium Level 9.9 mg/dL (8.7-10.4) 9.3 mg/dL (8.7-10.4) Total Protein 7.0 g/dL (5.7-8.2) 6.0 g/dL (5.7-8.2) Coagulation Test 12/31/24 20:34 Prothrombin Time 10.2 sec (9.3-11.8) Prothrombin Time INR 0.96 (0.9-1.15) Activated Partial Thromboplast Time 29.0 SEC (24.5-34.5) D-Dimer, Quantitative 0.66 mg/L FEU (0.0-0.49) H Cardiac Markers Test 12/31/24 20:34 12/31/24 23:46 B-Type Natriuretic Peptide 214.66 pg/mL (0-100) 193.29 pg/mL (0-100) LFT Test 12/31/24 20:34 01/01/25 05:30 Alanine Aminotransferase (ALT) < 9 U/L (7-40) < 9 U/L (7-40) Alkaline Phosphatase 95 U/L (46-116) 75 U/L (46-116) Aspartate Amino Transferase (AST) 15 U/L (13-40) 21 U/L (13-40) Total Bilirubin 0.4 mg/dL (0.2-1.0) 0.4 mg/dL (0.2-1.0) Microbiology Microbiology Date/Time Source Procedure Growth Status 01/01/25 03:00 Nose MRSA Screen - Final Complete Assessment/Plan Assessment/Plan Status post acute respiratory failure Left foot cellulitis Left heel necrosis Chronic left leg pain Diabetes CHF History of PE Status post AICD Peripheral artery disease Mild leukopenia Elevated D-dimer Possible right-sided pneumonia Anemia of chronic disease Chronic narcotic use Plan: We will obtain ultrasound rule out DVT left lower extremity. Left foot MRI. Podiatry consult. Further plan per orders. Resume previous home narcotics for pain. Plan discussed with: Patient My Orders Orders - SUJATHA PHELAN MD Procedure Category Date Status Time Morphine Sulfate PHA 01/01/25 In Process Injection 13:00 Tramadol Hcl (Ultram) PHA 01/01/25 In Process 13:45 Apply Z-Guard DENIS 01/01/25 In Process 18:37 Apply: DENIS 01/01/25 In Process 18:37 * Dietary Consult CONS 01/01/25 Transmitted 18:40 Date of Service: Jan 01, 2025 Billing Provider: SUJATHA PHELAN MD Common Visit Codes: [id number] INP/OBS CARE(HIGH) SUJATHA PHELAN MD Jan 01, 2025 18:50
--- NOTE | 2025-01-01 19:24 | DVH ---
Left lower extremity venous duplex Clinical History: LLE Comparison: US LT LOWER DVT on DOS: 04/29/24, US RIGHT UPPER EXT. on DOS: 04/28/24, US LT LOWER DVT o n DOS: 04/24/24 Technique: Duplex Doppler evaluation of the deep venous system of the left lower extremity from the common femor al vein to the popliteal vein including color Doppler and spectral/pulsed waveform analysis was perfo rmed. Findings: The common femoral vein demonstrates appropriate compressibility and waveform variability. There is compressibility/patency of the great saphenous vein at the proximal thigh. The femoral vein demonstrates appropriate compressibility and waveform variability. The deep femoral vein demonstrates appropriate compressibility and waveform variability. The popliteal vein demonstrates appropriate compressibility and waveform variability. There is normal compressibility at the tibioperoneal trunk. Impression: No evidence of left femoropopliteal venous thrombosis.
[2025-01-01] MEDS: ATORVASTATIN 20 MG TAB PO SCH (22:30)
[2025-01-02] VITALS (8 sets, daily range): BP systolic 115–139; BP diastolic 64–86; PULSE 59–106; RESP 16–18; TEMP 97.1–97.9; O2SAT 93–98
[2025-01-02] MEDS: METOPROLOL SUCCINATE XL 50 MG TAB PO ONE (12:36)
--- NOTE | 2025-01-02 16:21 | DVHPN2 ---
Subjective Still some pains. He wants the tramadol as at home 200 mg b.i.d.. HE HAD CHEST PAIN EARLIER IN THE MORNING Reviewed: Care Plan, H&P, Labs, Medications, Previous Orders, Radiology Changes from previous H/P or p: No Changes Respiratory: Shortness of breath Musculoskeletal: other (Left leg pain) Objective Vitals Vital Signs Date Time Temp Pulse Resp B/P (MAP) Pulse Ox O2 Delivery O2 Flow Rate FiO2 01/02/25 12:49 97.4 60 16 136/86 (103) 98 97.4 01/02/25 08:00 Nasal Cannula* 2 28 Intake/Output Intake and Output 01/02/25 07:00 Intake Total 1190 ml Output Total 1250 ml Balance -60 ml Intake Oral 990 ml IV Total 200 ml Output Urine Total 1250 ml General Appearance: Alert, Oriented X3, Cooperative, No acute distress HEENT: Atraumatic Lungs: Clear to auscultation Cardiovascular: Regular rate Abdomen: Normal bowel sounds, Soft, No tenderness Extremities: Other (Left foot and heel tenderness with some swelling in left leg tenderness/chronic pain) Medications Current Medications Medications Dose Ordered Sig/Sunny Route Start Time Stop Time Status Last Admin Dose Admin Tamsulosin HCl 0.4 mg QPM PO 01/01/25 18:00 01/01/25 16:45 0.4 MG Atorvastatin Calcium 20 mg HS PO 01/01/25 22:00 01/01/25 22:30 20 MG Famotidine 20 mg DAILY IV 01/01/25 10:00 01/02/25 09:26 20 MG Diagnostic Test (Pha) 1 strip IQ4HR 01/01/25 00:00 01/02/25 12:00 1 STRIP Insulin Human Regular IQ4HR SC 01/01/25 00:00 01/02/25 13:26 6 UNITS Dextrose 50 ml UD PRN IV 12/31/24 23:15 Sodium Chloride 10 ml Q8HR IV 01/01/25 06:00 01/02/25 15:21 10 ML Ondansetron HCl 4 mg Q4HP PRN IV 12/31/24 23:15 Docusate Sodium 100 mg BIDPRN PRN PO 12/31/24 23:15 Acetaminophen 650 mg Q6HP PRN PO 12/31/24 23:15 Nitroglycerin 0.4 mg Q5MINP PRN SL 12/31/24 23:15 Morphine Sulfate 2 mg Q30M PRN IV 12/31/24 23:15 01/01/25 22:20 2 MG Apixaban 5 mg BID PO 01/01/25 10:00 01/02/25 09:24 5 MG Piperacillin Sod/ Tazobactam Sod 100 ml @ 25 mls/hr Q8HR IV 01/01/25 06:00 01/02/25 15:21 25 MLS/HR Tramadol HCl 50 mg Q6HP PRN PO 01/01/25 13:45 01/02/25 12:37 50 MG Hydromorphone HCl 2 mg Q4HP PRN PO 01/02/25 05:45 01/02/25 13:25 2 MG Metoprolol Succinate 25 mg DAILY PO 01/03/25 10:00 Laboratory Results Laboratory Tests 01/01/25 05:30 Microbiology Microbiology Date/Time Source Procedure Growth Status 01/01/25 03:00 Nose MRSA Screen - Final Complete 12/31/24 20:34 Blood Blood Culture - Preliminary NO GROWTH AFTER 24 HOURS OF INCUBATION. Resulted Assessment/Plan Assessment/Plan Chest pain Status post acute respiratory failure Left foot cellulitis Left heel necrosis Chronic left leg pain Diabetes CHF History of PE Status post AICD Peripheral artery disease Mild leukopenia Elevated D-dimer Possible right-sided pneumonia Anemia of chronic disease Chronic narcotic use Elevated D-dimer Plan: Troponin. EKG. Aspirin. Cardiology consultation. Chest CT angiogram we will out PE. Could not do MRI due to the AICD. We will go ahead and obtain CT scan. Possible bone scan to rule out osteomyelitis. Podiatry consult pending. Further plan per orders Plan discussed with: Patient My Orders Orders - SUJATHA PHELAN MD Procedure Category Date Status Time Apply Z-Guard DENIS 01/01/25 In Process 18:37 Apply: DENIS 01/01/25 In Process 18:37 * Dietary Consult CONS 01/01/25 Transmitted 18:40 *Podiatry Consult CONS 01/01/25 Transmitted Musson(Dvmg) 18:50 Lt Lower Dvt 01/01/25 Resulted 18:50 Hydromorphone Tablet PHA 01/02/25 In Process (Dilaudid Tablet) 05:45 Metoprolol Xl PHA 01/03/25 In Process Succinate (Toprol Xl) 10:00 Tramadol Hcl (Ultram) PHA 01/02/25 Logged 16:15 Date of Service: Jan 02, 2025 Billing Provider: SUJATHA PHELAN MD Common Visit Codes: [id number] INP/OBS CARE(HIGH) SUJATHA PHELAN MD Jan 02, 2025 16:21
[2025-01-02] MEDS: PANTOPRAZOLE 40 MG TAB PO ONE (16:30)
--- NOTE | 2025-01-02 16:56 | DVHSR ---
APPROVED REPORT EXAM: Two-dimensional and M-mode echocardiogram with Doppler and color Doppler. Blood Pressure: 138/83 mmHg INDICATION CHF exacerbation, unspecified Surgery/Intervention Pacemaker: CABG: RISK FACTORS Height: 6'1", Weight: 154 DIMENSIONS LVDd (3.8-5.7cm)LA (2D)4.1 (1.9-4.0cm)Aortic Root (2.0-3.7cm) EF (%) 40.0 (55-70%)Rt. Atrium4.0 (1.9-4.0cm)Asc. Aorta cm IVSd (0.7-1.1cm)RV (D)3.8 (1.8-2.4cm) Mitral Valve MitralMitral Stenosis E wave0.63m/sMV Mean GR.mmHg A wave0.58m/sMV Peak GR.mmHg E/A ratio1.12D MVAcm2 DECEL [id number] 1/2 Timems Aortic Valve Aortic ValveAortic Stenosis V10.76m/Smooth Mean GR.3mmHg V21.30m/Smooth Peak GR.7mmHg LVOT Diameter1.9 (1.8-2.4cm)Doppler AVA1.66cm2 Tricuspid Valve TR Velocity2.87m/s [id number] Other Information Quality : Technically LimitedRhythm : Technically limited study due to body habitus and CABG. Conclusion Technically difficult study. Off axis views. Limited views obtained. There appears to be a sinus r hythm. LV enlargement with left atrial enlargement. Concentric LVH. Valves appear to be structurally normal. Left ventricular function is difficult to evaluate from the limited views obtained. Overall EF is ap proximately 35-40% with global hypokinesis. Mild decreased RV function. Mild tricuspid regurgitation. Mild MR. No pericardial effusion masses or vegetations. Pacing lead noted in RV.
[2025-01-03] VITALS (8 sets, daily range): BP systolic 112–138; BP diastolic 45–80; PULSE 60–72; RESP 17–20; TEMP 97.6–98.3; O2SAT 90–98
[2025-01-03] MEDS: PANTOPRAZOLE 40 MG TAB PO SCH (05:34)
--- NOTE | 2025-01-03 07:39 | ECG ---
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
[2025-01-03] MEDS: IOHEXOL 350 MG/ML 100ML IJ ONE (09:43)
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
[2025-01-03] MEDS: METOPROLOL SUCCINATE XL 50 MG TAB PO SCH (10:22)
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
--- NOTE | 2025-01-03 10:36 | DVH ---
CTA Chest with intravenous contrast INDICATION: RO PE COMPARISON: None TECHNIQUE: Multidetector spiral CTA of the chest was performed of the chest with intravenous contrast . PULMONARY ANGIOGRAPHY PROTOCOL was utilized using a bolus-tracking technique centered on the main p ulmonary artery. Axial, coronal and sagittal multiplanar and MIP reformats were performed. CONTRAST: Type of contrast: Omni 350 Contrast injected: 100 ml Radiation dose : Chest: CTDI volume is 26 mGy. Dose-length product is 1002 mGy*cm The dose indicators for CT are the volume computed Tomography (CT) dose Index (CTDIvol) and the dose Length product (DLP), and are measured in units of mGy and mGy-cm, respectively. These indicators are not patient dose, but values generated from the CT scanner acquisition factors. The report includes radiation exposure data for exposures received during this examination. Findings: Limited by metallic artifact related to pacemaker. Pulmonary artery: No large central or large segmental pulmonary embolism. Questionable filling defects in left lower lo be segmental and subsegmental branches could be artifact related to pacemaker. Lower neck: Normal thyroid. Lungs: Emphysematous changes in both lungs. Bibasilar atelectasis and consolidation. Heart/Vascular Structures: Normal heart size. No pericardial effusion. Lymph Nodes: Subcentimeter mediastinal lymph nodes. Pleura: No pleural effusion or significant pneumothorax. Musculoskeletal: Exaggerated kyphosis at the thoracolumbar junction with associated chronic anterior wedging compression deformity of T12. Soft tissues: Normal. Upper abdomen: Small sliding-type hiatal hernia. IMPRESSION: 1. Limited by metallic artifact. No large central pulmonary embolism. Questionable filling defects in left lower lobe segmental and subsegmental branches could be artifact related to pacemaker. Small am ount of thrombus is not excluded. No evidence of right heart strain. Clinical correlation and senia nued follow-up is recommended. 2. Smoking-related lung disease. Bibasilar atelectasis and consolidation. Subcentimeter mediastinal lymph nodes. Clinical correlation follow-up is recommended. HS:Y
[2025-01-03 11:43] LABS: Cholesterol 160.0 mg/dL (< 200); Triglycerides 94.0 mg/dL (< 150)
[2025-01-03 11:44] LABS: Magnesium 2.0 mg/dL (1.6-2.6)
[2025-01-03 11:45] LABS: HDL Cholesterol 52.0 mg/dL (40-59)
--- NOTE | 2025-01-03 12:01 | DVH ---
EXAMINATION: CT CT L FOOT WO CONTRAST INDICATION: pain COMPARISON: CT LEFT LOWER EXTREMITY W/O CON on DOS: 07/25/24, CT CT L KNEE WO CONTRAST on DOS: 4 TECHNIQUE: CT of the left lower extremity was performed without contrast. Volume transverse images we re obtained reconstructed in multiple planes using bone and soft tissue algorithms. Radiation Dose Information: CT Dose: CTDI volume is 7.8 mGy. Dose-length product is 225 mGy*cm Findings/ IMPRESSION: Diffuse subcutaneous soft-tissue edema and swelling. This may represent cellulitis. Soft-tissue ulceration at the posterior heel. Diffuse vascular atherosclerotic disease. Postsurgical resection of the distal foot from the level of the metatarsals. Diffuse patchy areas of hypoattenuation throughout the visualized osseous structures most prominent i n the posterior calcaneus. Findings may represent disuse osteopenia. Superimposed osteomyelitis in t he calcaneus is not completely excluded. Clinical correlation advised. MRI can be obtained to [facility] evaluate if clinically indicated.
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
[2025-01-03] MEDS: SACUBITRIL-VALSARTAN 24mg/26mg TAB PO SCH (20:28)
[2025-01-03] MEDS: APIXABAN 5 MG TAB PO SCH (20:28)
[2025-01-04] VITALS (8 sets, daily range): BP systolic 98–132; BP diastolic 69–83; PULSE 59–76; RESP 17–20; TEMP 97.5–98.6; O2SAT 94–99
--- NOTE | 2025-01-04 07:19 | ECG ---
[facility] Test Date: 2025-01-01 Test Time: 21:53:38 Pat Name: GEORGIANA VILLAR Department: Room: 0216T A Gender: M [employer]: erin : 1960 Requested By: SJUATHA PHELAN Order Number: [id number] Reading MD: Thomas Burton Measurements Intervals [place] Rate: 63 P: 0 CA: 134 QRS: 6 QRSD: 138 T: 142 QT: 662 QTc: 678 Interpretive Statements Sinus rhythm Nonspecific intraventricular conduction delay Inferior infarct, old Lateral leads are also involved Electronically Signed On 01-05-2025 13:52:36 PDT by Thomas Burton Please click the below link to view image of tracing.
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
[2025-01-04] MEDS: EMPAGLIFLOZIN 10 MG TAB PO SCH (09:09)
[2025-01-04] MEDS: CLOPIDOGREL BISULFATE 75 MG TAB PO SCH (09:09)
[2025-01-04 10:33] LABS: Hematocrit 41.5 % (41.0-53.0); Hemoglobin 13.8 g/dL (13.5-17.5); Mean Corpuscular Hemoglobin 30.7 pg (28.0-32.0); Mean Corpuscular Volume 92.6 fL (80.0-100.0); Nucleated Red Blood Cells % 0.1 %
[2025-01-04 10:50] LABS: Albumin 4.3 g/dL (3.2-4.8); Alkaline Phosphatase 65 U/L (46-116); Anion Gap 8 (5-15); BUN/Creatinine Ratio 14.6 (10.0-20.0); Bilirubin, Total 0.6 mg/dL (0.2-1.0); Blood Urea Nitrogen 12 mg/dL (9-23); Calcium 9.9 mg/dL (8.7-10.4); Carbon Dioxide 26 mmol/L (20-31); Chloride 101 mmol/L (98-107); Potassium 4.5 mmol/L (3.5-5.1); Total Protein 6.9 g/dL (5.7-8.2)
[2025-01-04 10:51] LABS: Alanine Aminotransferase < 9 U/L (7-40); Glucose 121 mg/dL (74-106); Sodium 135 mmol/L (136-145)
--- NOTE | 2025-01-04 12:29 | DVHINCON2 ---
Date Seen: Jan 04, 2025 Reason for Consultation Left heel wound History of Present Illness The patient is a 64-year-old male with multiple past medical history including CHF, DM, ME, PE, and diabetes mellitus who presented to [facility] ED with complaint of shortness of breaths. Patient reports he has been experiencing difficulty breathing with associated left leg pain; noted to have necrosis to his left heel. Patient was seen and evaluated in the ED, laboratory data shows WBC 6.7, platelets 137, sodium 137, potassium 4.7, BUN 13, creatinine 0.86, glucose 273, lactic acid 2.2 trending down to 1.6, troponin 10, BNP 214.66, D-dimer 0.66, blood pressure 135/83, heart rate 60, temperature 98.4 F, O2 saturation 97% on oxygen. Chest x-ray showed increased density mid right chest may represent airspace disease. Patient was given breathing treatment, please see medication orders section in the computer. On my assessment, patient denied chest pain, no headache, no dizziness, currently on oxygen, no nausea, no vomiting, no fever, no chills. Patient was admitted for further evaluation and medical management. Past Medical History See H&P Past Surgical History See H&P Family History: Diabetes mellitus G8 MOTHER FHx: kidney disease G8 MOTHER Allergies: Coded Allergies: Hydrocodone (Verified Allergy, Severe, LEG SWELLING, 04/25/24) Ketorolac Tromethamine (Verified Allergy, Unknown, 04/03/24) Home Meds Active Scripts Lidocaine HCl (Aspercreme Lidocaine) 4 % Liq, 4 % EX BID PRN for 30 Days, #120 LIQ Prov:DURGA DAVIS RESIDENT 08/02/24 Linezolid (Zyvox) 600 Mg Tab, 600 MG PO BID for 60 Days, #120 TAB Prov:DURGA DAVIS RESIDENT 08/02/24 Pantoprazole Sodium Sesquihydr (Pantoprazole Sodium) 40 Mg Tab, 40 MG PO DAILY@0600 for 30 Days, #30 TAB Prov:DURGA DAVIS 08/02/24 Metoprolol Succinate (Toprol Xl) 50 Mg Tab, 25 MG PO DAILY for 30 Days, #15 TAB Prov:DURGA DAVIS RESIDENT 08/02/24 Lactulose (Lactulose) 10 Gm/15 Ml Jeannie, 30 ML PO Q6HPRN PRN for 30 Days, #60 ML Prov:DURGA DAVIS [facility] [place] 08/02/24 Indomethacin (Indocin) 25 Mg Cp, 25 MG PO TID for 15 Days, #60 [facility]24 Empagliflozin (Jardiance) 10 Mg Tab, 10 MG PO DAILY for 30 Days, #30 TAB [facility] 08/02/24 Atorvastatin Calcium (ATORVASTATIN CALCIUM) 20 Mg Tab, 80 MG PO HS for 30 Days, #120 TAB [facility] 08/02/24 Aspirin (Aspirin Low Dose) 81 Mg Tab, 81 MG PO DAILY for 30 Days, #30 TAB [facility] 08/02/24 Apixaban Base (ELIQUIS) 5 Mg Tab, 5 MG PO BID for 30 Days, #60 TAB [facility] 08/02/24 Acetaminophen (Acetaminophen) 325 Mg Tab, 650 MG PO Q8HR for 10 Days, #60 TAB [facility] 08/02/24 Oxycodone HCl (Oxycodone Hydrochloride) 10 Mg Tab, 10 MG PO TIDPRN PRN for 7 Days, #21 TAB Prov:TAMMY ANNE MD 04/07/24 Oxycodone Hcl (OxyCONTIN ER Tablet) 10 Mg Tb, 1 TAB PO BID for 7 Days, #14 TAB 0 Refills Prov:TAMMY ANNE MD 04/07/24 Tamsulosin Hcl (Flomax) 0.4 Mg Cap, 0.4 MG PO QPM for 30 Days, #30 CAP 0 Refills Prov:TAMMY ANNE MD 04/07/24 Baclofen (Baclofen) 10 Mg Tab, 5 MG PO Q8HR for 30 Days, #45 TAB 0 Refills Prov:TAMMY ANNE MD 04/07/24 Reported Medications Tramadol Hcl (Tramadol Hcl) 50 Mg Tab, 200 MG PO BIDPRN PRN for PAIN SCALE 7 THRU 10, MG 01/01/25 Hydromorphone Hcl (Dilaudid) 2 Mg Tab, 1 TAB PO Q4HPRN PRN for PAIN SCALE 7 THRU 10, #120 TAB 01/01/25 Discontinued Reported Medications Tamsulosin HCl (Tamsulosin Hydrochloride) 0.4 Mg Cap, 0.4 MG PO, CAP 04/04/24 Current Medications Current Medications Medications (Trade) Dose Ordered Sig/Sunny Route PRN Reason Start Time Stop Time Status Last Admin Sacubitril/ Valsartan (Entresto 24-26 Mg tab) 1 tab BID PO 01/03/25 22:00 01/04/25 09:09 Empaglifozin (Jardiance) 10 mg DAILY PO 01/04/25 10:00 01/04/25 09:09 Clopidogrel Bisulfate (Plavix) 75 mg DAILY PO 01/04/25 10:00 01/04/25 09:09 Apixaban (Eliquis) 5 mg BID PO 01/03/25 22:00 01/04/25 09:08 Tramadol HCl (Ultram) 200 mg Q12HP PRN PO MILD PAIN (1-3 PAIN SCALE) 01/04/25 12:15 Vital Signs Vital Signs Date Time Temp Pulse Resp B/P (MAP) Pulse Ox O2 Delivery O2 Flow Rate FiO2 01/04/25 09:12 60 98/70 01/04/25 08:50 97.6 20 96 97.6 01/04/25 08:00 Room Air* 2 N/A Nasal Cannula* Physical Exam Dermatological: Skin is dry with mild erythema and some maceration around the wound site No gross deformities noted Mild non-pitting edema present bilaterally Left posterior heel with eschar lifting in mixed granular fibrotic base Vascular: Dorsalis pedis and posterior tibial pulses are 1+ bilaterally Capillary refill is under 2 seconds Skin temperature is warm bilaterally Neurologic: Protective sensation is absent on the plantar forefoot bilaterally Monofilament testing reveals decreased sensation in multiple plantar sites Musculoskeletal: Range of motion at the ankle and MTP joints is within normal limits. Strength is 5/5 in all tested muscle groups. Gait is antalgic due to offloading of the affected limb. Labs/Diagnostic Data Labs Test 01/04/25 11:55 01/04/25 09:54 01/03/25 10:59 01/02/25 20:52 Range/Units POC Glucose 148 H 70-106 mg/dl White Blood Count 7.0 # 4.4-10.8 10^3/uL Red Blood Count 4.49 L 4.5-5.90 10^6/uL Hemoglobin 13.8 13.5-17.5 g/dL Hematocrit 41.5 # 41.0-53.0 % Mean Corpuscular Volume 92.6 80.0-100.0 fL Mean Corpuscular Hemoglobin 30.7 28.0-32.0 pg Mean Corpuscular Hemoglobin Concent 33.1 32.0-36.0 g/dL Red Cell Distribution Width 14.8 H 11.8-14.3 % Platelet Count 172 140-450 10^3/uL Mean Platelet Volume 8.0 6.9-10.8 fL Neutrophils (%) (Auto) 71.2 37.0-80.0 % Lymphocytes (%) (Auto) 13.0 10.0-50.0 % Monocytes (%) (Auto) 9.2 0.0-12.0 % Eosinophils (%) (Auto) 5.3 0.0-7.0 % Basophils (%) (Auto) 1.3 0.0-2.0 % Neutrophils # (Auto) 5.0 1.6-8.6 10 ^3/uL Lymphocytes # (Auto) 0.9 0.4-5.4 10 ^3/uL Monocytes # (Auto) 0.6 0-1.3 10 ^3/uL Eosinophils # (Auto) 0.4 0-0.8 10 ^3/uL Basophils # (Auto) 0.1 0-0.2 10 ^3/uL Nucleated Red Blood Cells 0.1 % Sodium Level 135 L 136-145 mmol/L Potassium Level 4.5 3.5-5.1 mmol/L Chloride Level 101 98-107 mmol/L Carbon Dioxide Level 26 20-31 mmol/L Anion Gap 8 5-15 Blood Urea Nitrogen 12 9-23 mg/dL Creatinine 0.82 0.700-1.30 mg/dL Glomerular Filtration Rate Calc 99 >90 mL/min BUN/Creatinine Ratio 14.6 10.0-20.0 Serum Glucose 121 #H 74-106 mg/dL Calcium Level 9.9 8.7-10.4 mg/dL Total Bilirubin 0.6 0.2-1.0 mg/dL Aspartate Amino Transferase (AST) 16 13-40 U/L Alanine Aminotransferase (ALT) < 9 7-40 U/L Alkaline Phosphatase 65 46-116 U/L Total Protein 6.9 5.7-8.2 g/dL Albumin 4.3 3.2-4.8 g/dL Hemoglobin A1c 7.1 H <5.7 % A1C Magnesium Level 2.0 1.6-2.6 mg/dL Triglycerides Level 94 < 150 mg/dL Cholesterol Level 160 < 200 mg/dL LDL Cholesterol 97 < 100 mg/dL HDL Cholesterol 52 40-59 mg/dL Thyroid Stimulating Hormone (TSH) 4.19 0.55-4.78 uIU/mL Troponin I High Sensitivity 7 </=54 ng/L Test 01/02/25 16:58 12/31/24 23:46 12/31/24 22:30 12/31/24 20:34 Range/Units Erythrocyte Sedimentation Rate 13 0-20 mm/hr B-Type Natriuretic Peptide 193.29 0-100 pg/mL Lactic Acid Level 1.6 0.4-2.0 mmol/L Prothrombin Time 10.2 9.3-11.8 sec Prothrombin Time INR 0.96 0.9-1.15 Activated Partial Thromboplast Time 29.0 24.5-34.5 SEC D-Dimer, Quantitative 0.66 H 0.0-0.49 mg/L FEU Microbiology Date/Time Source Procedure Growth Status 01/01/25 03:00 Nose MRSA Screen - Final Complete 12/31/24 20:34 Blood Blood Culture - Preliminary NO GROWTH AFTER 72 HOURS OF INCUBATION. Resulted Problems(with codes): (1) Hyperglycemia (2) Effusion of knee joint, left (3) Elevated lactic acid level (4) Tibial plateau fracture, left (5) Acute coronary syndrome (6) Generalized weakness (7) Pneumonia, unspecified organism (8) Alcohol intoxication (9) Endocarditis (10) Rib fracture (11) Frequent falls (12) Staphylococcus epidermidis bacteremia (13) Infection of implantable cardioverter-defibrillator (ICD) lead (14) PIC line (peripherally inserted central catheter) removal (15) Syncope and collapse (16) Multiple fractures of ribs, right side, initial encounter for closed fracture (17) Hepatitis C (18) Foot ulcer due to secondary DM (19) Cellulitis of left foot (20) Type 2 diabetes mellitus with hyperglycemia (21) Dehydration (22) CHF exacerbation (23) Acute respiratory distress (24) Elevated d-dimer Plan/Recommendation ASSESSMENT: Patient is a 64 year old seen on the floor for a worsening ulcer PLAN: - The patients chart was reviewed, clinical findings were discussed with the patient, the etiologies of the conditions were discussed in detail, and a treatment plan was agreed to at this time, with both oral and written instructions provided. - reviewed advanced imaging - discussed that the wound appears to be stable at this point - patient needs to offload the heel to prevent worsening pressure ulcer - recommend using Medihoney on the wound gauze Kerlix Nicolás - should follow up with me in 1 week for continued outpatient wound care All questions were answered and concerns addressed to the patient's satisfaction. The patient was given the phone number to the clinic and was told how to make contact with the clinic should any concerns or questions arise. Patient understands that if any questions or concerns arise prior to the next appointment, we should be contacted immediately. FOLLOW-UP: Continue to follow while inpatient Plan discussed with: Patient Date of Service: Jan 04, 2025 Billing Provider: CHUCK COLEMAN DPM Common Visit Codes: CONSULT ONLY Consultation Codes: [id number] CONSULT <80MIN CHUCK COLEMAN DPM Jan 04, 2025 12:29
[2025-01-05] VITALS (8 sets, daily range): BP systolic 108–133; BP diastolic 66–77; PULSE 60–65; RESP 17–18; TEMP 97–98.5; O2SAT 92–96
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
[2025-01-05 06:53] LABS: Hematocrit 41.6 % (41.0-53.0); Hemoglobin 14.4 g/dL (13.5-17.5); Mean Corpuscular Hemoglobin 31.6 pg (28.0-32.0); Mean Corpuscular Volume 91.7 fL (80.0-100.0); Nucleated Red Blood Cells % 0.1 %
[2025-01-05 06:55] LABS: Anion Gap 11 (5-15); Carbon Dioxide 23 mmol/L (20-31); Chloride 102 mmol/L (98-107); Potassium 4.3 mmol/L (3.5-5.1); Sodium 136 mmol/L (136-145)
[2025-01-05 06:56] LABS: Calcium 9.9 mg/dL (8.7-10.4)
[2025-01-05 07:01] LABS: BUN/Creatinine Ratio 13.5 (10.0-20.0); Blood Urea Nitrogen 14 mg/dL (9-23)
[2025-01-05 07:02] LABS: Glucose 187 mg/dL (74-106)
[2025-01-06] VITALS (9 sets, daily range): BP systolic 106–130; BP diastolic 71–79; PULSE 60–72; RESP 18–20; TEMP 97.8–98.8; O2SAT 94–98
[2025-01-06 06:41] LABS: Anion Gap 12 (5-15); Calcium 9.9 mg/dL (8.7-10.4); Carbon Dioxide 22 mmol/L (20-31); Chloride 100 mmol/L (98-107); Potassium 4.3 mmol/L (3.5-5.1)
[2025-01-06 06:44] LABS: Sodium 134 mmol/L (136-145)
[2025-01-06 06:47] LABS: BUN/Creatinine Ratio 13.6 (10.0-20.0); Blood Urea Nitrogen 14 mg/dL (9-23)
[2025-01-06 06:49] LABS: Glucose 135 mg/dL (74-106)
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
[2025-01-06 14:09] LABS: Urine Budding Yeast OCCASIONAL /hpf (None Seen); Urine Protein, UAD Negative (Negative)
[2025-01-06] MEDS: DOCUSATE SOD 100 MG CAP PO PRN (21:26)
[2025-01-07] VITALS (8 sets, daily range): BP systolic 103–124; BP diastolic 49–82; PULSE 43–71; RESP 16–19; TEMP 97–98.6; O2SAT 95–97
[2025-01-07 06:29] LABS: Alanine Aminotransferase < 9 U/L (7-40); Albumin 4.6 g/dL (3.2-4.8); Alkaline Phosphatase 72 U/L (46-116); Anion Gap 12 (5-15); BUN/Creatinine Ratio 14.7 (10.0-20.0); Blood Urea Nitrogen 16 mg/dL (9-23); Calcium 9.8 mg/dL (8.7-10.4); Carbon Dioxide 23 mmol/L (20-31); Chloride 100 mmol/L (98-107); Glucose 128 mg/dL (74-106); Potassium 4.2 mmol/L (3.5-5.1); Sodium 135 mmol/L (136-145); Total Protein 7.5 g/dL (5.7-8.2)
[2025-01-07 06:30] LABS: Bilirubin, Total 0.6 mg/dL (0.2-1.0)
[2025-01-07 06:33] LABS: Hematocrit 43.7 % (41.0-53.0); Hemoglobin 15.3 g/dL (13.5-17.5); Mean Corpuscular Hemoglobin 31.4 pg (28.0-32.0); Mean Corpuscular Volume 90.0 fL (80.0-100.0); Nucleated Red Blood Cells % 0.0 %
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
[2025-01-07 10:10] LABS: Amphetamine Screen, Urine Neg (NEGATIVE); Barbiturate Scree,Urine Neg (NEGATIVE); Benzodiazephine Screen, Urine Neg (NEGATIVE); Cannabinoid Screen, Urine Neg (NEGATIVE); Cocaine Screen, Urine Neg (NEGATIVE); Opiate Scree,Urine Neg (NEGATIVE); Phencyclidine Screen, Urine Neg (NEGATIVE)
[2025-01-07] MEDS: HYDROmorphone HCL 2 MG/ML VL/or syr IV PRN (13:28)
[2025-01-08] VITALS (8 sets, daily range): BP systolic 106–122; BP diastolic 59–77; PULSE 56–69; RESP 16–20; TEMP 97.6–98.2; O2SAT 93–97
[2025-01-08 06:02] LABS: Chloride 101 mmol/L (98-107); Potassium 4.1 mmol/L (3.5-5.1)
[2025-01-08 06:03] LABS: Anion Gap 10 (5-15); Calcium 9.2 mg/dL (8.7-10.4); Carbon Dioxide 22 mmol/L (20-31)
[2025-01-08 06:05] LABS: Sodium 133 mmol/L (136-145)
[2025-01-08 06:09] LABS: BUN/Creatinine Ratio 17.4 (10.0-20.0); Blood Urea Nitrogen 20 mg/dL (9-23)
[2025-01-08 06:18] LABS: Glucose 114 mg/dL (74-106)
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
[2025-01-08] MEDS: HYDROmorphone HCL 2 MG/ML VL/or syr IV PRN (13:22)
[2025-01-08] MEDS: TROLAMINE SALICYLATE 10% TOP CREAM TOP PRN (18:39)
[2025-01-09] VITALS (8 sets, daily range): BP systolic 98–118; BP diastolic 59–71; PULSE 56–67; RESP 18–20; TEMP 97.5–98.5; O2SAT 92–97
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
[2025-01-09 06:26] LABS: Hematocrit 44.6 % (41.0-53.0); Hemoglobin 15.3 g/dL (13.5-17.5); Mean Corpuscular Hemoglobin 31.6 pg (28.0-32.0); Mean Corpuscular Volume 92.1 fL (80.0-100.0); Nucleated Red Blood Cells % 0.2 %
[2025-01-09 06:35] LABS: Alkaline Phosphatase 69 U/L (46-116); Anion Gap 11 (5-15); BUN/Creatinine Ratio 15.8 (10.0-20.0); Blood Urea Nitrogen 18 mg/dL (9-23); Calcium 9.4 mg/dL (8.7-10.4); Carbon Dioxide 23 mmol/L (20-31); Chloride 101 mmol/L (98-107); Potassium 4.1 mmol/L (3.5-5.1)
[2025-01-09 06:36] LABS: Total Protein 7.6 g/dL (5.7-8.2)
[2025-01-09 06:37] LABS: Albumin 4.7 g/dL (3.2-4.8); Bilirubin, Total 0.6 mg/dL (0.2-1.0)
[2025-01-09 06:53] LABS: Alanine Aminotransferase < 9 U/L (7-40); Glucose 130 mg/dL (74-106); Sodium 135 mmol/L (136-145)
[2025-01-09] MEDS: TROLAMINE SALICYLATE 10% TOP CREAM TOP PRN (12:00)
[2025-01-09] MEDS: ACCU-CHEK COMFORT CURVE STRIP VI SCH (21:52)
[2025-01-09] MEDS: InsuLIN REG 1unit/0.01ml Soln (100units/ml) SC SCH (21:58)
[2025-01-10] VITALS (8 sets, daily range): BP systolic 100–130; BP diastolic 63–79; PULSE 59–66; RESP 17–19; TEMP 97.5–98.2; O2SAT 94–98
[2025-01-10] MEDS: InsuLIN REG 1unit/0.01ml Soln (100units/ml) SC SCH (06:10)
[2025-01-10 06:57] LABS: Chloride 101 mmol/L (98-107); Potassium 4.2 mmol/L (3.5-5.1)
[2025-01-10 06:58] LABS: Anion Gap 13 (5-15); Calcium 9.2 mg/dL (8.7-10.4); Carbon Dioxide 21 mmol/L (20-31); Sodium 135 mmol/L (136-145)
[2025-01-10 07:03] LABS: Glucose 161 mg/dL (74-106)
[2025-01-10 07:15] LABS: BUN/Creatinine Ratio 15.5 (10.0-20.0); Blood Urea Nitrogen 18 mg/dL (9-23)
[2025-01-10] MEDS ORDERED: VANCOMYCIN PER PHARMACY 0 MG IV SCH (11:15)
--- NOTE | 2025-01-10 11:32 | DVHPN2 ---
Subjective Patient denies any symptoms Reviewed: Care Plan, H&P, Labs, Medications, Previous Orders, Radiology, Other (Consultations) Changes from previous H/P or p: No Changes General: Per HPI Objective Vitals Vital Signs Date Time Temp Pulse Resp B/P (MAP) Pulse Ox O2 Delivery O2 Flow Rate FiO2 01/10/25 10:43 60 16 110/69 01/10/25 08:36 98.1 95 98.1 01/10/25 08:00 Room Air* 0 21 Intake/Output Intake and Output 01/10/25 07:00 Intake Total 2460 ml Output Total 1100 ml Balance 1360 ml Intake Oral 2160 ml IV Total 300 ml Output Urine Total 1100 ml Stool Total 0 ml # Voids 3 General Appearance: Alert, Oriented X3, Cooperative, No acute distress HEENT: Atraumatic, PERRLA Lungs: Clear to auscultation, Normal air movement Chest/Breasts: Other (ICD in place) Cardiovascular: Regular rate, Normal S1, Normal S2 Abdomen: Normal bowel sounds, Soft, No tenderness Extremities: Other (Bilateral transmetatarsal amputation) Neuro: Normal speech, Cranial nerves 3-12 NL Skin: Wounds (See nurse notes and pictures), Other (Dressed left heel with greenish discharge) Psych/Mental Status: Mental status NL, Mood NL Medications Current Medications Medications Dose Ordered Sig/Sunny Route Start Time Stop Time Status Last Admin Dose Admin Tamsulosin HCl 0.4 mg QPM PO 01/01/25 18:00 01/09/25 18:26 0.4 MG Atorvastatin Calcium 20 mg HS PO 01/01/25 22:00 01/09/25 21:50 20 MG Dextrose 50 ml UD PRN IV 12/31/24 23:15 Sodium Chloride 10 ml Q8HR IV 01/01/25 06:00 01/10/25 06:09 10 ML Ondansetron HCl 4 mg Q4HP PRN IV 12/31/24 23:15 Docusate Sodium 100 mg BIDPRN PRN PO 12/31/24 23:15 01/08/25 22:09 100 MG Acetaminophen 650 mg Q6HP PRN PO 12/31/24 23:15 Nitroglycerin 0.4 mg Q5MINP PRN SL 12/31/24 23:15 Metoprolol Succinate 25 mg DAILY PO 01/03/25 10:00 01/10/25 09:32 25 MG Pantoprazole Sodium 40 mg DAILY@0600 PO 01/03/25 06:00 01/09/25 05:44 40 MG Sacubitril/ Valsartan 1 tab BID PO 01/03/25 22:00 01/10/25 09:31 1 TAB Empaglifozin 10 mg DAILY PO 01/04/25 10:00 01/10/25 09:32 10 MG Clopidogrel Bisulfate 75 mg DAILY PO 01/04/25 10:00 01/10/25 09:32 75 MG Apixaban 5 mg BID PO 01/03/25 22:00 01/10/25 09:32 5 MG Tramadol HCl 200 mg Q12HP PRN PO 01/05/25 12:30 01/10/25 03:21 200 MG Hydromorphone HCl 0.5 mg Q6HP PRN IV 01/08/25 13:00 01/10/25 10:13 0.5 MG Trolamine Salicylate 1 applic TID PRN TOP 01/09/25 10:45 01/09/25 12:00 1 APPLIC Diagnostic Test (Pha) 1 strip ACHS 01/09/25 22:00 01/10/25 10:12 1 STRIP Insulin Human Regular AC SC 01/10/25 07:00 Insulin Human Regular HS SC 01/09/25 22:00 01/09/25 21:58 4 UNITS Vancomycin HCl 0 ml @ 0 mls/hr UD IV 01/10/25 11:15 UNV Ertapenem 1 gm/ Sodium Chloride 50 ml @ 100 mls/hr DAILY IV 01/11/25 10:00 UNV Laboratory Results Laboratory Tests 01/09/25 05:17 01/10/25 05:32 Chemistry Test 01/10/25 05:32 Calcium Level 9.2 mg/dL (8.7-10.4) Urinalysis Test 01/06/25 13:48 Urine Color Light-yellow (Yellow) Urine Clarity Clear (Clear) Urine pH 6.5 (5.0-9.0) Urine Specific [place] 1.027 (1.001-1.035) Urine Protein Negative (Negative) Urine Ketones Negative (Negative) Urine Blood Negative /uL (Negative) Urine Nitrite Negative (Negative) Urine Bilirubin Negative (Negative) Urine Urobilinogen Normal mg/dL (Negative) Urine Leukocyte Esterase Negative /uL (Negative) Urine RBC <1 /hpf (0 - 3) Urine Microscopic WBC 1 /HPF (0-3) Urine Squamous Epithelial Cells None seen /hpf (<5) Urine Bacteria None seen /hpf (None Seen) Urine Yeast (Budding) Occasional /hpf (None Urine Glucose 4+ mg/dL (Normal) H Microbiology Microbiology Date/Time Source Procedure Growth Status 01/05/25 09:30 Foot Left Gram Stain - Final Complete 01/05/25 09:30 Wound Culture - Final Proteus mirabilis Escherichia coli - ESBL Staphylococcus aureus Enterococcus faecalis Complete 12/31/24 20:34 Blood Blood Culture - Final NO GROWTH AFTER 5 DAYS OF INCUBATION. Complete Labs and/or images reviewed: Labs reviewed by me, Image(s) reviewed by me Assessment/Plan Assessment/Plan Impression: -left heel cellulitis, rule out osteomyelitis -recent diagnosis of endocarditis with completion of IV antibiotic therapy for patient -recent bloodstream infection, with exchange of tunneled central line and completion of IV antibiotic course -acute on chronic systolic heart failure -diabetes mellitus -peripheral arterial disease -history of polysubstance abuse including alcoholism -chronic pain syndrome with chronic opiate use -moderate protein malnutrition -cachexia Plan: -podiatry consultation: Recommendations reviewed -awaiting three-phase bone scan. Unable to perform MRI given ICD -regular insulin sliding scale -change antibiotic therapy to Invanz and vancomycin -infectious disease consultation -pain management -nutritional supplementation -discussion made with the patient regarding plan of care including long-term IV antibiotic therapy outside of the hospital. Patient was agreeable to this plan. Recommendations appreciated from Infectious Disease specialist. Total time spent with patient discussing and formulating plan of care: 35 minutes. This medical document was created using an electronic medical record system with [employer] dictation system. Although this document has been carefully reviewed, there may still be some phonetic and typographical errors. These areas are purely typographical due to imperfections of the software programs, and do not reflect any compromise in the patient's medical care. Plan discussed with: Patient, Other (RN) My Orders Orders - XOCHITL GRAY NP Procedure Category Date Status Time Vancomycin Per PHA 01/10/25 Logged Pharmacy 11:15 Ertapenem Sod Inj PHA 01/11/25 Logged (Invanz) 10:00 Date of Service: Jan 10, 2025 Billing Provider: XOCHITL GRAY NP Common Visit Codes: [id number] INP/OBS CARE(HIGH) XOCHITL GRAY NP Jan 10, 2025 11:32
[2025-01-10] MEDS: VANCOMYCIN 1.5GM/300ML 300 ML IV ONE (15:14)
[2025-01-10] MEDS: ERTAPENEM SOD INJ 1 GM in SODIUM CHL 0.9% 50 ML IV SCH (17:28)
[2025-01-11] VITALS (9 sets, daily range): BP systolic 101–132; BP diastolic 71–90; PULSE 43–61; RESP 17–18; TEMP 97.4–98.2; O2SAT 95–98
--- NOTE | 2025-01-11 11:31 | DVHPN2 ---
Subjective Patient denies any symptoms Reviewed: Care Plan, H&P, Labs, Medications, Previous Orders, Radiology, Other (Consultations) Changes from previous H/P or p: No Changes General: Per HPI Objective Vitals Vital Signs Date Time Temp Pulse Resp B/P (MAP) Pulse Ox O2 Delivery O2 Flow Rate FiO2 01/11/25 11:14 60 18 120/88 01/11/25 05:00 98.2 97 98.2 01/10/25 20:00 Room Air* 0 21 Intake/Output Intake and Output 01/11/25 07:00 Intake Total 600 ml Output Total 900 ml Balance -300 ml Intake Oral 600 ml Output Urine Total 900 ml General Appearance: Alert, Oriented X3, Cooperative, No acute distress HEENT: Atraumatic, PERRLA Lungs: Clear to auscultation, Normal air movement Chest/Breasts: Other (ICD in place) Cardiovascular: Regular rate, Normal S1, Normal S2 Abdomen: Normal bowel sounds, Soft, No tenderness Extremities: Other (Bilateral transmetatarsal amputation) Neuro: Normal speech, Cranial nerves 3-12 NL Skin: Wounds (See nurse notes and pictures), Other (Dressed left heel with greenish discharge) Psych/Mental Status: Mental status NL, Mood NL Medications Current Medications Medications Dose Ordered Sig/Sunny Route Start Time Stop Time Status Last Admin Dose Admin Tamsulosin HCl 0.4 mg QPM PO 01/01/25 18:00 01/10/25 17:03 0.4 MG Atorvastatin Calcium 20 mg HS PO 01/01/25 22:00 01/10/25 21:22 20 MG Dextrose 50 ml UD PRN IV 12/31/24 23:15 Sodium Chloride 10 ml Q8HR IV 01/01/25 06:00 01/11/25 04:50 10 ML Ondansetron HCl 4 mg Q4HP PRN IV 12/31/24 23:15 Docusate Sodium 100 mg BIDPRN PRN PO 12/31/24 23:15 01/08/25 22:09 100 MG Acetaminophen 650 mg Q6HP PRN PO 12/31/24 23:15 Nitroglycerin 0.4 mg Q5MINP PRN SL 12/31/24 23:15 Metoprolol Succinate 25 mg DAILY PO 01/03/25 10:00 01/11/25 08:48 25 MG Pantoprazole Sodium 40 mg DAILY@0600 PO 01/03/25 06:00 01/11/25 04:51 40 MG Sacubitril/ Valsartan 1 tab BID PO 01/03/25 22:00 01/11/25 08:47 1 TAB Empaglifozin 10 mg DAILY PO 01/04/25 10:00 01/11/25 08:51 10 MG Clopidogrel Bisulfate 75 mg DAILY PO 01/04/25 10:00 01/11/25 08:51 75 MG Apixaban 5 mg BID PO 01/03/25 22:00 01/11/25 08:51 5 MG Tramadol HCl 200 mg Q12HP PRN PO 01/05/25 12:30 01/11/25 08:27 200 MG Hydromorphone HCl 0.5 mg Q6HP PRN IV 01/08/25 13:00 01/11/25 11:14 0.5 MG Trolamine Salicylate 1 applic TID PRN TOP 01/09/25 10:45 01/09/25 12:00 1 APPLIC Diagnostic Test (Pha) 1 strip ACHS 01/09/25 22:00 01/11/25 04:51 1 STRIP Insulin Human Regular AC SC 01/10/25 07:00 01/11/25 05:46 6 UNITS Insulin Human Regular HS SC 01/09/25 22:00 01/09/25 21:58 4 UNITS Vancomycin HCl 0 ml @ 0 mls/hr UD IV 01/10/25 11:15 Ertapenem 1 gm/ Sodium Chloride 50 ml @ 100 mls/hr Q24H IV 01/10/25 16:00 01/10/25 17:28 100 MLS/HR Laboratory Results Laboratory Tests 01/09/25 05:17 01/10/25 05:32 Urinalysis Test 01/06/25 13:48 Urine Color Light-yellow (Yellow) Urine Clarity Clear (Clear) Urine pH 6.5 (5.0-9.0) Urine Specific [place] 1.027 (1.001-1.035) Urine Protein Negative (Negative) Urine Ketones Negative (Negative) Urine Blood Negative /uL (Negative) Urine Nitrite Negative (Negative) Urine Bilirubin Negative (Negative) Urine Urobilinogen Normal mg/dL (Negative) Urine Leukocyte Esterase Negative /uL (Negative) Urine RBC <1 /hpf (0 - 3) Urine Microscopic WBC 1 /HPF (0-3) Urine Squamous Epithelial Cells None seen /hpf (<5) Urine Bacteria None seen /hpf (None Seen) Urine Yeast (Budding) Occasional /hpf (None Urine Glucose 4+ mg/dL (Normal) H Microbiology Microbiology Date/Time Source Procedure Growth Status 01/05/25 09:30 Foot Left Gram Stain - Final Complete 01/05/25 09:30 Wound Culture - Final Proteus mirabilis Escherichia coli - ESBL Staphylococcus aureus Enterococcus faecalis Complete 12/31/24 20:34 Blood Blood Culture - Final NO GROWTH AFTER 5 DAYS OF INCUBATION. Complete Labs and/or images reviewed: Labs reviewed by me, Image(s) reviewed by me Assessment/Plan Assessment/Plan Impression: -left heel cellulitis, rule out osteomyelitis -recent diagnosis of endocarditis with completion of IV antibiotic therapy for patient -recent bloodstream infection, with exchange of tunneled central line and completion of IV antibiotic course -acute on chronic systolic heart failure -diabetes mellitus -peripheral arterial disease -history of polysubstance abuse including alcoholism -chronic pain syndrome with chronic opiate use -moderate protein malnutrition -cachexia Plan: Events: Three-phase bone scan performed yesterday. Plans to have procedure performed today. Discussed with patient plan of care including home IV antibiotic therapy once determine if patient has osteomyelitis. -podiatry consultation: Recommendations reviewed -awaiting three-phase bone scan. Unable to perform MRI given ICD -regular insulin sliding scale -change antibiotic therapy to Invanz and vancomycin -infectious disease consultation -pain management -nutritional supplementation Total time spent with patient discussing and formulating plan of care: 35 minutes. This medical document was created using an electronic medical record system with [employer] dictation system. Although this document has been carefully reviewed, there may still be some phonetic and typographical errors. These areas are purely typographical due to imperfections of the software programs, and do not reflect any compromise in the patient's medical care. Plan discussed with: Patient, Other (RN) My Orders Orders - XOCHITL GRAY NP Procedure Category Date Status Time Consistent DIET 01/10/25 Transmitted Carb(Ccho)Diabetes Dinner Complete Blood Count LAB 01/12/25 Verified 04:00 Comprehensive LAB 01/12/25 Verified Metabolic Panel 04:00 Date of Service: Jan 11, 2025 Billing Provider: XOCHITL GRAY NP Common Visit Codes: [id number] INP/OBS CARE(HIGH) XOCHITL GRAY PERSON[employer] INS[employer] AGENT Jan 11, 2025 11:31
[2025-01-11 19:19] LABS: Hematocrit 45.3 % (41.0-53.0); Hemoglobin 15.3 g/dL (13.5-17.5); Mean Corpuscular Hemoglobin 31.2 pg (28.0-32.0); Mean Corpuscular Volume 92.3 fL (80.0-100.0); Nucleated Red Blood Cells % 0.1 %
--- NOTE | 2025-01-11 21:39 | DVHINCON2 ---
Date of service: Jan 10, 2025 Family History: Diabetes mellitus G8 MOTHER FHx: kidney disease G8 MOTHER Allergies: Coded Allergies: Hydrocodone (Verified Allergy, Severe, LEG SWELLING, 04/25/24) Ketorolac Tromethamine (Verified Allergy, Unknown, 04/03/24) Home Meds Active Scripts Lidocaine HCl (Aspercreme Lidocaine) 4 % Liq, 4 % EX BID PRN for 30 Days, #120 [facility] Linezolid (Zyvox) 600 Mg Tab, 600 MG PO BID for 60 Days, #120 TAB [facility] 08/02/24 Pantoprazole Sodium Sesquihydr (Pantoprazole Sodium) 40 Mg Tab, 40 MG PO DAILY@0600 for 30 Days, #30 TAB [facility] 08/02/24 Metoprolol Succinate (Toprol Xl) 50 Mg Tab, 25 MG PO DAILY for 30 Days, #15 TAB [facility] 08/02/24 Lactulose (Lactulose) 10 Gm/15 Ml Jeannie, 30 ML PO Q6HPRN PRN for 30 Days, #60 ML Prov:[facility] 08/02/24 Indomethacin (Indocin) 25 Mg Cp, 25 MG PO TID for 15 Days, #60 CAP [facility] 08/02/24 Empagliflozin (Jardiance) 10 Mg Tab, 10 MG PO DAILY for 30 Days, #30 TAB Prov:[facility] 08/02/24 Atorvastatin Calcium (ATORVASTATIN CALCIUM) 20 Mg Tab, 80 MG PO HS for 30 Days, #120 TAB Prov:[facility] 08/02/24 Aspirin (Aspirin Low Dose) 81 Mg Tab, 81 MG PO DAILY for 30 Days, #30 TAB Prov:[facility] 08/02/24 Apixaban Base (ELIQUIS) 5 Mg Tab, 5 MG PO BID for 30 Days, #60 TAB Prov:[facility] 08/02/24 Acetaminophen (Acetaminophen) 325 Mg Tab, 650 MG PO Q8HR for 10 Days, #60 TAB Prov:[facility] 08/02/24 Oxycodone HCl (Oxycodone Hydrochloride) 10 Mg Tab, 10 MG PO TIDPRN PRN for 7 Days, #21 TAB Prov:TAMMY ANNE MD 04/07/24 Oxycodone Hcl (OxyCONTIN ER Tablet) 10 Mg Tb, 1 TAB PO BID for 7 Days, #14 TAB 0 Refills Prov:TAMMY ANNE MD 04/07/24 Tamsulosin Hcl (Flomax) 0.4 Mg Cap, 0.4 MG PO QPM for 30 Days, #30 CAP 0 Refills Prov:TAMMY ANNE MD 04/07/24 Baclofen (Baclofen) 10 Mg Tab, 5 MG PO Q8HR for 30 Days, #45 TAB 0 Refills Prov:TAMMY ANNE MD 04/07/24 Reported Medications Tramadol Hcl (Tramadol Hcl) 50 Mg Tab, 200 MG PO BIDPRN PRN for PAIN SCALE 7 THRU 10, MG 01/01/25 Hydromorphone Hcl (Dilaudid) 2 Mg Tab, 1 TAB PO Q4HPRN PRN for PAIN SCALE 7 THRU 10, #120 TAB 01/01/25 Vital Signs Vital Signs Date Time Temp Pulse Resp B/P (MAP) Pulse Ox O2 Delivery O2 Flow Rate FiO2 01/11/25 21:00 97.6 43 18 132/74 (93) 97 97.6 01/11/25 19:42 Room Air* 0 21 Labs/Diagnostic Data Labs Test 01/11/25 18:41 01/11/25 17:10 01/10/25 05:32 01/09/25 05:17 Range/Units White Blood Count 7.1 4.4-10.8 10^3/uL Red Blood Count 4.91 4.5-5.90 10^6/uL Hemoglobin 15.3 13.5-17.5 g/dL Hematocrit 45.3 41.0-53.0 % Mean Corpuscular Volume 92.3 80.0-100.0 fL Mean Corpuscular Hemoglobin 31.2 28.0-32.0 pg Mean Corpuscular Hemoglobin Concent 33.8 32.0-36.0 g/dL Red Cell Distribution Width 14.6 H 11.8-14.3 % Platelet Count 183 140-450 10^3/uL Mean Platelet Volume 8.2 6.9-10.8 fL Neutrophils (%) (Auto) 66.0 37.0-80.0 % Lymphocytes (%) (Auto) 17.6 10.0-50.0 % Monocytes (%) (Auto) 12.1 H 0.0-12.0 % Eosinophils (%) (Auto) 3.3 0.0-7.0 % Basophils (%) (Auto) 1.0 0.0-2.0 % Neutrophils # (Auto) 4.7 1.6-8.6 10 ^3/uL Lymphocytes # (Auto) 1.3 0.4-5.4 10 ^3/uL Monocytes # (Auto) 0.9 0-1.3 10 ^3/uL Eosinophils # (Auto) 0.2 0-0.8 10 ^3/uL Basophils # (Auto) 0.1 0-0.2 10 ^3/uL Nucleated Red Blood Cells 0.1 % Creatinine 0.99 0.700-1.30 mg/dL Glomerular Filtration Rate Calc 86 >90 mL/min Random Vancomycin Level 7.1 5-10 ug/mL POC Glucose 287 H 70-106 mg/dl Sodium Level 135 L 136-145 mmol/L Potassium Level 4.2 3.5-5.1 mmol/L Chloride Level 101 98-107 mmol/L Carbon Dioxide Level 21 20-31 mmol/L Anion Gap 13 5-15 Blood Urea Nitrogen 18 9-23 mg/dL BUN/Creatinine Ratio 15.5 10.0-20.0 Serum Glucose 161 H 74-106 mg/dL Calcium Level 9.2 8.7-10.4 mg/dL Total Bilirubin 0.6 0.2-1.0 mg/dL Aspartate Amino Transferase (AST) 18 13-40 U/L Alanine Aminotransferase (ALT) < 9 7-40 U/L Alkaline Phosphatase 69 46-116 U/L Total Protein 7.6 5.7-8.2 g/dL Albumin 4.7 3.2-4.8 g/dL Test 01/06/25 21:30 01/06/25 13:48 01/03/25 10:59 01/02/25 20:52 Range/Units Urine Opiates Screen Neg NEGATIVE Urine Fentanyl Screen Neg NEGATIVE Urine Barbiturates Screen Neg NEGATIVE Urine Phencyclidine Screen Neg NEGATIVE Urine Amphetamines Screen Neg NEGATIVE Urine Benzodiazepines Screen Neg NEGATIVE Urine Cocaine Screen Neg NEGATIVE Urine Cannabinoids Screen Neg NEGATIVE Urine Color Light-yellow Yellow Urine Clarity Clear Clear Urine pH 6.5 5.0-9.0 Urine Specific [place] 1.027 1.001-1.035 Urine Protein Negative Negative Urine Ketones Negative Negative Urine Blood Negative Negative /uL Urine Nitrite Negative Negative Urine Bilirubin Negative Negative Urine Urobilinogen Normal Negative mg/dL Urine Leukocyte Esterase Negative Negative /uL Urine RBC <1 0 - 3 /hpf Urine Microscopic WBC 1 0-3 /HPF Urine Squamous Epithelial Cells None seen <5 /hpf Urine Bacteria None seen None Seen /hpf Urine Yeast (Budding) Occasional None Seen /hpf Urine Glucose 4+ H Normal mg/dL Hemoglobin A1c 7.1 H <5.7 % A1C Magnesium Level 2.0 1.6-2.6 mg/dL Triglycerides Level 94 < 150 mg/dL Cholesterol Level 160 < 200 mg/dL LDL Cholesterol 97 < 100 mg/dL HDL Cholesterol 52 40-59 mg/dL Thyroid Stimulating Hormone (TSH) 4.19 0.55-4.78 uIU/mL Troponin I High Sensitivity 7 </=54 ng/L Test 01/02/25 16:58 12/31/24 23:46 12/31/24 22:30 12/31/24 20:34 Range/Units Erythrocyte Sedimentation Rate 13 0-20 mm/hr B-Type Natriuretic Peptide 193.29 0-100 pg/mL Lactic Acid Level 1.6 0.4-2.0 mmol/L Prothrombin Time 10.2 9.3-11.8 sec Prothrombin Time INR 0.96 0.9-1.15 Activated Partial Thromboplast Time 29.0 24.5-34.5 SEC D-Dimer, Quantitative 0.66 H 0.0-0.49 mg/L FEU Microbiology Date/Time Source Procedure Growth Status 01/05/25 09:30 Foot Left Gram Stain - Final Complete 01/05/25 09:30 Wound Culture - Final Proteus mirabilis Escherichia coli - ESBL Staphylococcus aureus Enterococcus faecalis Complete 12/31/24 20:34 Blood Blood Culture - Final NO GROWTH AFTER 5 DAYS OF INCUBATION. Complete Problems(with codes): (1) Foot ulcer due to secondary DM (2) Cellulitis of left foot (3) CHF exacerbation (4) Acute respiratory distress (5) Endocarditis Plan/Recommendation ASSESSMENT AND PLAN: ID Problem List: \-- CHF (congestive heart failure) \-- Diabetes mellitus \-- Myocardial infarction \-- Pulmonary embolism (history) \-- Necrotic chronic left heel ulcer (probable osteomyelitis) \-- Recent pneumonia Assessment This is a 64 y.o. male with a significant past medical history including congestive heart failure, diabetes, prior myocardial infarction, and a history of pulmonary embolism, who presents with shortness of breath and worsening chronic necrotic ulcer of the left heel with associated leg swelling. The patient was admitted for further evaluation of pneumonia and chronic necrotic left lower extremity ulcer. Imaging and cultures outlined below. Leg ulcer has worsened with increased swelling and necrosis. Recent blood cultures revealed ESBL (extended-spectrum beta-lactamase) E. coli (sensitive to ertapenem, meropenem, trimethoprim-sulfamethoxazole \[Bactrim], and p iperacillin-tazobactam \[Zosyn], resistant to fluoroquinolones), as well as growth of methicillin-sensitive Staph aureus, Proteus (ampicillin-resistant), and Enterococcus (ampicillin-sensitive). Patient is currently on ertapenem for presumed osteomyelitis. The wound is being treated with offloading and MediHoney ointment per podiatry recommendations. Hemoglobin A1c is elevated at 7.1. Blood glucose on admission was 287 mg/dL. Repeat imaging of the left foot with X-ray showed partial amputations of all dig its at the level of metatarsal spaces with moderate swelling, grossly intact overlying tissue, and atherosclerotic calcifications, but without definite evidence of osteomyelitis. CT foot showed diffuse soft tissue edema and swelling possibly representing cellulitis and suspicion for osteomyelitis; further evaluation with MRI can be considered. No deep vein thrombosis (DVT) was identified on venous ultrasound of the left lower extremity. Chest imaging revealed bilateral patchy airspace disease consistent with pneumonia and emphysematous changes. The patients pulmonary embolism history was addressed; no acute PE seen on recent imaging. Labs revealed mild leukopenia that has since resolved. No fevers; some mild hypothermia noted. Plan: \-- Continue current course of ertapenem for presumed osteomyelitis inpatient \-- consider six weeks of IV ertapenem via PICC for osteomyelitis given poor healing potential (hyperglycemia, severe PAD, comorbidities); If unable to tolerate, consider oral therapy (Bactrim 1ds bid or cefdinir 300mg po bid x 6 weeks) \-- Monitor sed rate and CRP for ongoing inflammation; pursue MRI if suspicion for osteomyelitis remains high \-- Continue offloading of left foot and MediHoney dressing as per podiatry \-- Tight glycemic control; aim fasting glucose <180 mg/dL to optimize wound healing \-- Outpatient wound care follow-up and podiatry follow-up for potential ashish gical intervention if infection or ulcer worsens \-- Monitor for systemic signs of infection or clinical decline \-- No evidence of DVT; continue VTE prophylaxis as indicated \-- Continue management of CHF and diabetes Isolation Precautions: standard \*Assessment and plan was discussed with the patient as written above \*Plan is subject to change pending incorporation of new incoming information/diagnostics. Updates may be added as addendum at the bottom (OR TOP) of this note Thank you for interesting consult. ID will continue to follow. Please contact Infectious disease for any questions or concerns. Aakash Alberto M.D. [facility] Ph: ? Teams text: [email or web address] Electronically signed by: Aakash Alberto MD, 01/10/2025 \ History: The patient's chart and medications were reviewed in detail and the patient was seen and examined. History obtained from: patient Steven Alcantara is a 64-year-old male with notable past medical history of CHF, diabetes mellitus, prior myocardial infarction, and pulmonary embolism (history) who presents with shortness of breath and worsening chronic necrotic ulcer of the left heel associated with increasing swelling. The leg ulcer has been chronic but worsening, now necrotic with moderate swelling and new findings of multiple microbial growths on wound culture (including ESBL E. coli, MSSA, Proteus, and Enterococcus). Initial admission for pneumonia; respiratory status now improved; ulcer remains primary concern. Review of Systems: A complete 10 system review of systems was completed and negative except as noted in the HPI or here. ROS: -CONSTITUTIONAL: Denies weight loss, fever and chills. -HEENT: Denies changes in vision and hearing. -RESPIRATORY: Denies cough at this time; previously with SOB on presentation. -CARDIOVASCULAR: Denies chest pain or palpitations. -GASTROINTESTINAL: Denies abdominal pain, nausea, vomiting or diarrhea. -GENITOURINARY: Denies dysuria or urinary frequency. -MUSCULOSKELETAL: Endorses chronic leg pain in left heel, otherwise denies myalgia and joint pain. -SKIN: Necrotic ulcer left heel. Otherwise denies rash or pruritus. -NEUROLOGICAL: Endorses generalized limb weakness; otherwise denies headache, syncope. -PSYCHIATRIC: Denies anxiety, depression, and recent mood changes. Past Medical History: Diagnosis Date Congestive heart failure Diabetes mellitus Myocardial infarction Pulmonary embolism Past Surgical History: Coronary artery bypass graft (CABG) Percutaneous transluminal coronary angioplasty (PTCA) Tonsillectomy Home Medications: Prior to Admission medications: \-- Not provided in transcript Allergies: Allergies: hydrocodone, ketorolac Family History: Family History: Not provided in transcript Social History: No smoking, alcohol, or IV drug use. Objective: Vital Signs on Arrival: Temp: 98.4 F (36.9 C) BP: 135/83 Pulse: 60 Resp: 20 SpO2: 97% on room air; increased to 3L O2 in ED as needed. Most Recent Vital Signs: Not provided in transcript Admission Weight: Not provided in transcript Physical Exam: General: NAD Neck: Supple. No masses. HEENT: PERRL. Normal lids and conjunctiva. Moist mucous membranes. Oropharynx without lesions, exudates or excessive erythema. Normal appearance of the external aspects of the nose and ears. Heart: Regular rhythm, normal rate. No murmur. No lower extremity edema. Lungs: Normal respiratory effort. Clear to auscultation bilaterally. No wheezes. No crackles. Abdomen: Soft. Non-tender. Non-distended. No masses or abdominal hernia. Msk: 4/5 strength upper and lower extremities. No digital cyanosis. Normal tone in all 4 limbs. Skin: Necrotic ulceration left heel. Warm and dry, no rashes. Neuro: Alert. No facial droop or slurred speech. Extra-ocular movements intact. Sensation intact to soft touch in all 4 limbs. Psych: Appropriate mood. Full affect. Oriented to person, place, time, and situation. Lines: Active Lines \-- Not provided in transcript Diagnostic Studies: Available diagnostic studies were reviewed personally. Significant relevant results and findings are outlined below or addressed in the Assessment and Plan above. Pertinent Imaging: Recent Results CXR (Chest X-ray): Increased density in right chest, may represent airspace disease. (Date not specified) Chest CT: Ribavellar atelectasis, diffuse bilateral patchy airspace disease, pericentral emphysema with bullous changes. No large central PE. Questionable filling defects in segmental/subsegmental branches; small thrombus not excluded. No right heart strain. Venous US LLE: No DVT. X-ray L foot: Partial amputation of all digits at metatarsal spaces, overlying tissues grossly intact, moderate swelling, atherosclerotic calcification. No definite osteomyelitis. Foot CT: Diffuse soft tissue edema and swelling (possible cellulitis and tissue ulceration at posterior heel), severe vascular disease, post-surgical changes, diffuse osteopenia, possible osteomyelitis. Blood and wound culture: ESBL E. coli (sensitive to ertapenem/meropenem/Bactrim/Zosyn, resistant to fluoroquinolones), MSSA, Proteus (ampicillin-resistant), Enterococcus (ampicillin-sensitive). HgbA1c: 7.1, serum glucose: 287 mg/dL at admission. Laboratory Data: WBC 6.7 (on admission), leukopenic cirilo 4.2, now improved. Platelets: 137 Creatinine: 0.86 Lactate: 2.2, improved with fluids Todays Encounter date: 01/10/2025 Patient Name: Steven Alcantara Provider: Aakash Alberto Plan discussed with: Patient AAKASH ALBERTO MD Jan 11, 2025 21:39
--- NOTE | 2025-01-11 22:07 | DVHPN2 ---
Consult Progress Note Date Seen: Jan 11, 2025 Subjective Patient reports: Feels better Objective vital signs Vital Sign Date Time Temp Pulse Resp B/P (MAP) Pulse Ox O2 Delivery O2 Flow Rate FiO2 01/11/25 21:00 97.6 43 18 132/74 (93) 97 97.6 01/11/25 19:42 Room Air* 0 21 Total Intake and Output 01/10/25 01/10/25 01/11/25 15:00 23:00 07:00 Intake Total 200 ml 400 ml Output Total 400 ml 500 ml Balance -200 ml -100 ml medications Current Medications Medications Dose Ordered Sig/Sunny Route Start Time Stop Time Status Last Admin Dose Admin Tamsulosin HCl 0.4 mg QPM PO 01/01/25 18:00 01/11/25 17:08 0.4 MG Atorvastatin Calcium 20 mg HS PO 01/01/25 22:00 01/10/25 21:22 20 MG Dextrose 50 ml UD PRN IV 12/31/24 23:15 Sodium Chloride 10 ml Q8HR IV 01/01/25 06:00 01/11/25 14:59 10 ML Ondansetron HCl 4 mg Q4HP PRN IV 12/31/24 23:15 Docusate Sodium 100 mg BIDPRN PRN PO 12/31/24 23:15 01/08/25 22:09 100 MG Acetaminophen 650 mg Q6HP PRN PO 12/31/24 23:15 Nitroglycerin 0.4 mg Q5MINP PRN SL 12/31/24 23:15 Metoprolol Succinate 25 mg DAILY PO 01/03/25 10:00 01/11/25 08:48 25 MG Pantoprazole Sodium 40 mg DAILY@0600 PO 01/03/25 06:00 01/11/25 04:51 40 MG Sacubitril/ Valsartan 1 tab BID PO 01/03/25 22:00 01/11/25 08:47 1 TAB Empaglifozin 10 mg DAILY PO 01/04/25 10:00 01/11/25 08:51 10 MG Clopidogrel Bisulfate 75 mg DAILY PO 01/04/25 10:00 01/11/25 08:51 75 MG Apixaban 5 mg BID PO 01/03/25 22:00 01/11/25 08:51 5 MG Tramadol HCl 200 mg Q12HP PRN PO 01/05/25 12:30 01/11/25 15:04 200 MG Hydromorphone HCl 0.5 mg Q6HP PRN IV 01/08/25 13:00 01/11/25 17:18 0.5 MG Trolamine Salicylate 1 applic TID PRN TOP 01/09/25 10:45 01/09/25 12:00 1 APPLIC Diagnostic Test (Pha) 1 strip ACHS 01/09/25 22:00 01/11/25 17:11 1 STRIP Insulin Human Regular AC SC 01/10/25 07:00 01/11/25 17:16 9 UNITS Insulin Human Regular HS SC 01/09/25 22:00 01/09/25 21:58 4 UNITS Vancomycin HCl 0 ml @ 0 mls/hr UD IV 01/10/25 11:15 Ertapenem 1 gm/ Sodium Chloride 50 ml @ 100 mls/hr Q24H IV 01/10/25 16:00 01/11/25 17:03 100 MLS/HR Physical Exam: General: NAD Neck: Supple. No masses. HEENT: PERRL. Normal lids and conjunctiva. Moist mucous membranes. Oropharynx without lesions, exudates or excessive erythema. Normal appearance of the external aspects of the nose and ears. Heart: Regular rhythm, normal rate. No murmur. No lower extremity edema. Lungs: Normal respiratory effort. Clear to auscultation bilaterally. No wheezes. No crackles. Abdomen: Soft. Non-tender. Non-distended. No masses or abdominal hernia. Msk: 4/5 strength upper and lower extremities. No digital cyanosis. Normal tone in all 4 limbs. Skin: Necrotic ulceration left heel. Warm and dry, no rashes. Neuro: Alert. No facial droop or slurred speech. Extra-ocular movements intact. Sensation intact to soft touch in all 4 limbs. Psych: Appropriate mood. Full affect. Oriented to person, place, time, and situation. laboratory and microbiology Laboratory Tests 01/11/25 18:41 01/10/25 05:32 Test 01/10/25 05:32 Range/Units Serum Glucose 161 H 74-106 mg/dL Problem List/Assessment/Plan Problems(with codes): (1) Chronic pain (2) Infection of implantable cardioverter-defibrillator (ICD) lead (3) Tibial plateau fracture, left (4) Staphylococcus epidermidis bacteremia (5) Elevated lactic acid level (6) Pneumonia, unspecified organism (7) Frequent falls (8) Effusion of knee joint, left Problem List/Assessment/Plan ASSESSMENT AND PLAN: ID Problem List: \-- CHF (congestive heart failure) \-- Diabetes mellitus \-- Myocardial infarction \-- Pulmonary embolism (history) \-- Necrotic chronic left heel ulcer (probable osteomyelitis) \-- Recent pneumonia Assessment This is a 64 y.o. male with a significant past medical history including congestive heart failure, diabetes, prior myocardial infarction, and a history of pulmonary embolism, who presents with shortness of breath and worsening chronic necrotic ulcer of the left heel with associated leg swelling. The patient was admitted for further evaluation of pneumonia and chronic necrotic left lower extremity ulcer. Imaging and cultures outlined below. Leg ulcer has worsened with increased swelling and necrosis. Recent blood cultures revealed ESBL (extended-spectrum beta-lactamase) E. coli (sensitive to ertapenem, meropenem, trimethoprim-sulfamethoxazole \[Bactrim], and piperacillin-tazobactam \[Zosyn], resistant to fluoroquinolones), as well as growth of methicillin-sensitive Staph aureus, Proteus (ampicillin-resistant), and Enterococcus (ampicillin-sensitive). Patient is currently on ertapenem for presumed osteomyelitis. The wound is being treated with offloading and MediHoney ointment per podiatry recommendations. Hemoglobin A1c is elevated at 7.1. Blood glucose on admission was 287 mg/dL. Repeat imaging of the left foot with X-ray showed partial amputations of all digits at the level of metatarsal spaces with moderate swelling, grossly intact overlying tissue, and atherosclerotic calcifications, but without definite evidence of osteomyelitis. CT foot showed diffuse soft tissue edema and swelling possibly representing cellulitis and suspicion for osteomyelitis; further evaluation with MRI can be considered. No deep vein thrombosis (DVT) was identified on venous ultrasound of the left lower extremity. Chest imaging revealed bilateral patchy airspace disease consistent with pneumonia and emphysematous changes. The patients pulmonary embolism history was addressed; no acute PE seen on recent imaging. Labs revealed mild leukopenia that has since resolved. No fevers; some mild hypothermia noted. 01/11: continues to have pain on foot , otherwise appears improving from infection Plan: - refer to pain management due to infection related pain \-- Continue current course of ertapenem for presumed osteomyelitis inpatient \-- consider six weeks of IV ertapenem via PICC for osteomyelitis given poor healing potential (hyperglycemia, severe PAD, comorbidities); If unable to tolerate, consider oral therapy (Bactrim 1ds bid or cefdinir 300mg po bid x 6 weeks) \-- Monitor sed rate and CRP for ongoing inflammation; pursue MRI if suspicion for osteomyelitis remains high \-- Continue offloading of left foot and MediHoney dressing as per podiatry \-- Tight glycemic control; aim fasting glucose <180 mg/dL to optimize wound healing \-- Outpatient wound care follow-up and podiatry follow-up for potential surgical intervention if infection or ulcer worsens \-- Monitor for systemic signs of infection or clinical decline \-- No evidence of DVT; continue VTE prophylaxis as indicated \-- Continue management of CHF and diabetes Isolation Precautions: standard Plan discussed with: Other Dietary Evaluation Review Recommendations by RD: Protein Supplementation Comments: 1) Initiate Daniel @ 1 pk bid 2) Initiate MVI @ 1 tb qd 3) Initiate vitamin C @ 500 mg bid and zinc sulfate @ 220 mg for 7 days 4) Add cardiac restriction to 60g CCHO diet 5) Encourage optimal PO intake 6) Collect HbA1c 7) Follow-up with cardiology and podiatry 8) Continue to monitor I&O, labs, and skin integrity Expected Outcomes/Goals: 1) appetite and labs to improve 2) wounds to improve 3) f/u in 3-5 days AAKASH ALBERTO MD Jan 11, 2025 22:07
[2025-01-12] VITALS (9 sets, daily range): BP systolic 106–145; BP diastolic 65–77; PULSE 60–68; RESP 15–18; TEMP 97.8–98.6; O2SAT 96–98
[2025-01-12 10:31] LABS: Hematocrit 45.9 % (41.0-53.0); Hemoglobin 15.5 g/dL (13.5-17.5); Mean Corpuscular Hemoglobin 30.8 pg (28.0-32.0); Mean Corpuscular Volume 91.1 fL (80.0-100.0); Nucleated Red Blood Cells % 0.1 %
--- NOTE | 2025-01-12 10:38 | DVHPN2 ---
Subjective Patient denies any symptoms Reviewed: Care Plan, H&P, Labs, Medications, Previous Orders, Radiology, Other (Consultations) Changes from previous H/P or p: No Changes General: Per HPI Objective Vitals Vital Signs Date Time Temp Pulse Resp B/P (MAP) Pulse Ox O2 Delivery O2 Flow Rate FiO2 01/12/25 09:00 98.6 60 15 118/75 (89) 97 98.6 01/12/25 07:40 Room Air* 0 21 Intake/Output Intake and Output 01/12/25 07:00 Intake Total 1690 ml Output Total 1165 ml Balance 525 ml Intake Oral 1640 ml IV Total 50 ml Output Urine Total 1165 ml Stool Total 0 ml # Voids 4 General Appearance: Alert, Oriented X3, Cooperative, No acute distress HEENT: Atraumatic, PERRLA Lungs: Clear to auscultation, Normal air movement Chest/Breasts: Other (ICD in place) Cardiovascular: Regular rate, Normal S1, Normal S2 Abdomen: Normal bowel sounds, Soft, No tenderness Extremities: Other (Bilateral transmetatarsal amputation) Neuro: Normal speech, Cranial nerves 3-12 NL Skin: Wounds (See nurse notes and pictures), Other (Dressed left heel with greenish discharge) Psych/Mental Status: Mental status NL, Mood NL Medications Current Medications Medications Dose Ordered Sig/Sunny Route Start Time Stop Time Status Last Admin Dose Admin Tamsulosin HCl 0.4 mg QPM PO 01/01/25 18:00 01/11/25 17:08 0.4 MG Atorvastatin Calcium 20 mg HS PO 01/01/25 22:00 01/11/25 23:05 20 MG Dextrose 50 ml UD PRN IV 12/31/24 23:15 Sodium Chloride 10 ml Q8HR IV 01/01/25 06:00 01/12/25 05:13 10 ML Ondansetron HCl 4 mg Q4HP PRN IV 12/31/24 23:15 Docusate Sodium 100 mg BIDPRN PRN PO 12/31/24 23:15 01/08/25 22:09 100 MG Acetaminophen 650 mg Q6HP PRN PO 12/31/24 23:15 Nitroglycerin 0.4 mg Q5MINP PRN SL 12/31/24 23:15 Metoprolol Succinate 25 mg DAILY PO 01/03/25 10:00 01/12/25 08:31 25 MG Pantoprazole Sodium 40 mg DAILY@0600 PO 01/03/25 06:00 01/12/25 05:13 40 MG Sacubitril/ Valsartan 1 tab BID PO 01/03/25 22:00 01/12/25 08:33 1 TAB Empaglifozin 10 mg DAILY PO 01/04/25 10:00 01/11/25 08:51 10 MG Clopidogrel Bisulfate 75 mg DAILY PO 01/04/25 10:00 01/12/25 08:30 75 MG Apixaban 5 mg BID PO 01/03/25 22:00 01/12/25 08:33 5 MG Tramadol HCl 200 mg Q12HP PRN PO 01/05/25 12:30 01/12/25 07:31 200 MG Hydromorphone HCl 0.5 mg Q6HP PRN IV 01/08/25 13:00 01/12/25 05:14 0.5 MG Trolamine Salicylate 1 applic TID PRN TOP 01/09/25 10:45 01/09/25 12:00 1 APPLIC Diagnostic Test (Pha) 1 strip ACHS 01/09/25 22:00 01/12/25 06:43 1 STRIP Insulin Human Regular AC SC 01/10/25 07:00 01/12/25 06:46 3 UNITS Insulin Human Regular HS SC 01/09/25 22:00 01/11/25 23:09 3 UNITS Vancomycin HCl 0 ml @ 0 mls/hr UD IV 01/10/25 11:15 Ertapenem 1 gm/ Sodium Chloride 50 ml @ 100 mls/hr Q24H IV 01/10/25 16:00 01/11/25 17:03 100 MLS/HR Laboratory Results Laboratory Tests 01/12/25 10:12 Chemistry Test 01/12/25 10:12 Albumin Pending Calcium Level Pending Total Protein Pending LFT Test 01/12/25 10:12 Alanine Aminotransferase (ALT) Pending Alkaline Phosphatase Pending Aspartate Amino Transferase (AST) Pending Total Bilirubin Pending Urinalysis Test 01/06/25 13:48 Urine Color Light-yellow (Yellow) Urine Clarity Clear (Clear) Urine pH 6.5 (5.0-9.0) Urine Specific [place] 1.027 (1.001-1.035) Urine Protein Negative (Negative) Urine Ketones Negative (Negative) Urine Blood Negative /uL (Negative) Urine Nitrite Negative (Negative) Urine Bilirubin Negative (Negative) Urine Urobilinogen Normal mg/dL (Negative) Urine Leukocyte Esterase Negative /uL (Negative) Urine RBC <1 /hpf (0 - 3) Urine Microscopic WBC 1 /HPF (0-3) Urine Squamous Epithelial Cells None seen /hpf (<5) Urine Bacteria None seen /hpf (None Seen) Urine Yeast (Budding) Occasional /hpf (None Urine Glucose 4+ mg/dL (Normal) H Microbiology Microbiology Date/Time Source Procedure Growth Status 01/05/25 09:30 Foot Left Gram Stain - Final Complete 01/05/25 09:30 Wound Culture - Final Proteus mirabilis Escherichia coli - ESBL Staphylococcus aureus Enterococcus faecalis Complete 12/31/24 20:34 Blood Blood Culture - Final NO GROWTH AFTER 5 DAYS OF INCUBATION. Complete Labs and/or images reviewed: Labs reviewed by me, Image(s) reviewed by me Assessment/Plan Assessment/Plan Impression: -left heel cellulitis, rule out osteomyelitis -recent diagnosis of endocarditis with completion of IV antibiotic therapy for patient -recent bloodstream infection, with exchange of tunneled central line and completion of IV antibiotic course -acute on chronic systolic heart failure -diabetes mellitus -peripheral arterial disease -history of polysubstance abuse including alcoholism -chronic pain syndrome with chronic opiate use -moderate protein malnutrition -cachexia Plan: Events: THREE-PHASE BONE SCAN DELAYED FOR ANOTHER DAY. Cancel bone scan given recommendations by Infectious Disease doctor. Social service consultation for DC planning with IV Invanz with previously placed tunneled central line, previously placed at [facility]. -podiatry consultation: Recommendations reviewed -regular insulin sliding scale -change antibiotic therapy to Invanz and vancomycin -infectious disease consultation -pain management: Increase frequency of IV Dilaudid -nutritional supplementation Total time spent with patient discussing and formulating plan of care: 35 minutes. This medical document was created using an electronic medical record system with [employer] dictation system. Although this document has been carefully reviewed, there may still be some phonetic and typographical errors. These areas are purely typographical due to imperfections of the software programs, and do not reflect any compromise in the patient's medical care. Plan discussed with: Patient, Other (RN) My Orders Orders - XOCHITL GRAY NP Procedure Category Date Status Time Comprehensive LAB 01/12/25 In Process Metabolic Panel 04:00 * Cooker Cleaner CONS 01/11/25 Transmitted Consult Vancomycin,Random LAB 01/12/25 In Process 04:00 C-Reactive Protein LAB 01/12/25 In Process 04:00 Hydromorphone PHA 01/12/25 Transmitted Injection (Dilaudid 10:45 * Cooker Cleaner CONS 01/12/25 Transmitted Consult Date of Service: Jan 12, 2025 Billing Provider: XOCHITL GRAY NP Common Visit Codes: 10436-[id number] INP/OBS CARE(HIGH) XOCHITL GRAY NP Jan 12, 2025 10:38
[2025-01-12 10:58] LABS: Alanine Aminotransferase 11 U/L (7-40); Albumin 4.7 g/dL (3.2-4.8); Alkaline Phosphatase 71 U/L (46-116); Anion Gap 11 (5-15); BUN/Creatinine Ratio 19.8 (10.0-20.0); Blood Urea Nitrogen 19 mg/dL (9-23); Calcium 9.5 mg/dL (8.7-10.4); Carbon Dioxide 22 mmol/L (20-31); Chloride 105 mmol/L (98-107); Potassium 4.6 mmol/L (3.5-5.1); Sodium 138 mmol/L (136-145); Total Protein 7.3 g/dL (5.7-8.2)
[2025-01-12 10:59] LABS: Bilirubin, Total 0.4 mg/dL (0.2-1.0)
[2025-01-12 11:12] LABS: Glucose 165 mg/dL (74-106)
[2025-01-12] MEDS: HYDROmorphone HCL 2 MG/ML VL/or syr IV PRN (11:49)
[2025-01-12 12:19] LABS: INR 1.11 (0.9-1.15); Partial Thromboplastin Time 34.4 SEC (24.5-34.5); Prothrombin Time 11.6 sec (9.3-11.8)
[2025-01-12] MEDS ORDERED: TRAM-626 PO ×2 (14:03→16:34)
[2025-01-12] MEDS ORDERED: HYDR2TAB58 PO ×2 (14:03→16:34)
--- NOTE | 2025-01-12 14:09 | DVHDS2 ---
Discharge Summary Date of Admission Dec 31, 2024 at 23:13 Date of Discharge: Jan 12, 2025 Admitting Diagnosis Acute respiratory failure Labs/Diagnostic Data: Laboratory Results Test 01/12/25 11:58 01/12/25 11:43 01/12/25 10:12 01/06/25 21:30 POC Glucose 169 mg/dl (70-106) Prothrombin Time 11.6 sec (9.3-11.8) Prothrombin Time INR 1.11 (0.9-1.15) Activated Partial Thromboplast Time 34.4 SEC (24.5-34.5) White Blood Count 7.1 10^3/uL (4.4-10.8) Red Blood Count 5.04 10^6/uL (4.5-5.90) Hemoglobin 15.5 g/dL (13.5-17.5) Hematocrit 45.9 % (41.0-53.0) Mean Corpuscular Volume 91.1 fL (80.0-100.0) Mean Corpuscular Hemoglobin 30.8 pg (28.0-32.0) Mean Corpuscular Hemoglobin Concent 33.8 g/dL (32.0-36.0) Red Cell Distribution Width 14.7 % (11.8-14.3) Platelet Count 188 10^3/uL (140-450) Mean Platelet Volume 8.1 fL (6.9-10.8) Neutrophils (%) (Auto) 73.0 % (37.0-80.0) Lymphocytes (%) (Auto) 14.3 % (10.0-50.0) Monocytes (%) (Auto) 8.8 % (0.0-12.0) Eosinophils (%) (Auto) 3.0 % (0.0-7.0) Basophils (%) (Auto) 0.9 % (0.0-2.0) Neutrophils # (Auto) 5.2 10 ^3/uL (1.6-8.6) Lymphocytes # (Auto) 1.0 10 ^3/uL (0.4-5.4) Monocytes # (Auto) 0.6 10 ^3/uL (0-1.3) Eosinophils # (Auto) 0.2 10 ^3/uL (0-0.8) Basophils # (Auto) 0.1 10 ^3/uL (0-0.2) Nucleated Red Blood Cells 0.1 % Erythrocyte Sedimentation Rate 12 mm/hr (0-20) Sodium Level 138 mmol/L (136-145) Potassium Level 4.6 mmol/L (3.5-5.1) Chloride Level 105 mmol/L (98-107) Carbon Dioxide Level 22 mmol/L (20-31) Anion Gap 11 (5-15) Blood Urea Nitrogen 19 mg/dL (9-23) Creatinine 0.96 mg/dL (0.700-1.30) Glomerular Filtration Rate Calc 89 mL/min (>90) BUN/Creatinine Ratio 19.8 (10.0-20.0) Serum Glucose 165 mg/dL (74-106) Calcium Level 9.5 mg/dL (8.7-10.4) Total Bilirubin 0.4 mg/dL (0.2-1.0) Aspartate Amino Transferase (AST) 29 U/L (13-40) Alanine Aminotransferase (ALT) 11 U/L (7-40) Alkaline Phosphatase 71 U/L (46-116) C-Reactive Protein High Sensitivity 0.16 mg/dL (<1.0) Total Protein 7.3 g/dL (5.7-8.2) Albumin 4.7 g/dL (3.2-4.8) Random Vancomycin Level 4.3 ug/mL (5-10) Urine Opiates Screen Neg (NEGATIVE) Urine Fentanyl Screen Neg (NEGATIVE) Urine Barbiturates Screen Neg (NEGATIVE) Urine Phencyclidine Screen Neg (NEGATIVE) Urine Amphetamines Screen Neg (NEGATIVE) Urine Benzodiazepines Screen Neg (NEGATIVE) Urine Cocaine Screen Neg (NEGATIVE) Urine Cannabinoids Screen Neg (NEGATIVE) Test 01/06/25 13:48 01/03/25 10:59 01/02/25 20:52 12/31/24 23:46 Urine Color Light-yellow (Yellow) Urine Clarity Clear (Clear) Urine pH 6.5 (5.0-9.0) Urine Specific [place] 1.027 (1.001-1.035) Urine Protein Negative (Negative) Urine Ketones Negative (Negative) Urine Blood Negative /uL (Negative) Urine Nitrite Negative (Negative) Urine Bilirubin Negative (Negative) Urine Urobilinogen Normal mg/dL (Negative) Urine Leukocyte Esterase Negative /uL (Negative) Urine RBC <1 /hpf (0 - 3) Urine Microscopic WBC 1 /HPF (0-3) Urine Squamous Epithelial Cells None seen /hpf (<5) Urine Bacteria None seen /hpf (None Seen) Urine Yeast (Budding) Occasional /hpf (None Urine Glucose 4+ mg/dL (Normal) Hemoglobin A1c 7.1 % A1C (<5.7) Magnesium Level 2.0 mg/dL (1.6-2.6) Triglycerides Level 94 mg/dL (< 150) Cholesterol Level 160 mg/dL (< 200) LDL Cholesterol 97 mg/dL (< 100) HDL Cholesterol 52 mg/dL (40-59) Thyroid Stimulating Hormone (TSH) 4.19 uIU/mL (0.55-4.78) Troponin I High Sensitivity 7 ng/L (</=54) B-Type Natriuretic Peptide 193.29 pg/mL (0-100) Test 12/31/24 22:30 12/31/24 20:34 Lactic Acid Level 1.6 mmol/L (0.4-2.0) D-Dimer, Quantitative 0.66 mg/L FEU (0.0-0.49) Other Laboratory Tests 01/12/25 10:12 Brief Hx & Hospital Course: History of Present Illness The patient is a 64-year-old male with multiple past medical history including CHF, DM, ID, PE, and diabetes mellitus who presented to [facility] ED with complaint of shortness of breaths. Patient reports he has been experiencing difficulty breathing with associated left leg pain; noted to have necrosis to his left heel. Patient was seen and evaluated in the ED, laboratory data shows WBC 6.7, platelets 137, sodium 137, potassium 4.7, BUN 13, creatinine 0.86, glucose 273, lactic acid 2.2 trending down to 1.6, troponin 10, BNP 214.66, D-dimer 0.66, blood pressure 135/83, heart rate 60, temperature 98.4 F, O2 saturation 97% on oxygen. Chest x-ray showed increased density mid right chest may represent airspace disease. Patient was given breathing treatment, please see medication orders section in the computer. On my assessment, patient denied chest pain, no headache, no dizziness, currently on oxygen, no nausea, no vomiting, no fever, no chills. Patient was admitted for further evaluation and medical management. Course of hospitalization: Patient's respiratory status improved after IV diuresis. Patient was restarted on his antiplatelet and anticoagulation therapy at home as well as his guideline directed medical therapy. Left heel was inspected, with noted open wound. Patient was also found to have a right upper chest tunneled central line, for which the patient states that he just completed IV antibiotics at home for recent bloodstream infection. Wound cultures came back positive for multiple MDRO was including ESBL. Infectious Disease consultation was obtained. Podiatry consultation was also obtained. No surgical intervention is required at this time. Patient will be discharged home and be continued on IV Invanz 1 g daily via existing central line. Patient will follow up as an outpatient with his PCP, Podiatry, as well as Infectious Disease an outpatient. Patient was agreeable with discharge plan. All questions answered. Physical examination General: Alert and Oriented x3. No acute distress. Well-nourished. Eyes: EOMI. Anicteric. HENT: Moist mucous membranes. Lungs: Clear to auscultation bilaterally. No accessory muscle use. Cardiovascular: Regular rate and rhythm. No murmur. No JVD. Abdomen: Soft, non-tender and non-distended. No palpable masses. Extremities: No edema. Non-tender. Skin: No rashes or lesions. Warm. Neurologic: No focal neurological deficits. CN II-XII grossly intact, but not individually tested. Psychiatric: Cooperative. Appropriate mood and affect. Total time spent with patient discussing and formulating plan of care: 35 minutes. This medical document was created using an electronic medical record system with [employer] dictation system. Although this document has been carefully reviewed, there may still be some phonetic and typographical errors. These areas are purely typographical due to imperfections of the software programs, and do not reflect any compromise in the patient's medical care. Consults/Reason for consult Infectious disease: MDRO, left foot osteomyelitis Podiatry: Osteomyelitis Condition at Discharge: Poor Final Diagnosis/Problems List Left foot osteomyelitis Secondary diagnosis: -left heel cellulitis, rule out osteomyelitis -recent diagnosis of endocarditis with completion of IV antibiotic therapy for patient -recent bloodstream infection, with exchange of tunneled central line and completion of IV antibiotic course -acute on chronic systolic heart failure -diabetes mellitus -peripheral arterial disease -history of polysubstance abuse including alcoholism -chronic pain syndrome with chronic opiate use -moderate protein malnutrition -cachexia Discharge Disposition: Home with Health Services Discharge Instruct/Medications Diet: Consistent carbohydrate, Cardiac 2g Na,low cholest Activity: No Restrictions, As Tolerated Follow Up/Referral: Follow up with PCP in 1-2 weeks Follow up with Infectious Disease in two weeks Follow up with Podiatry in two weeks Medications: Invanz 1 g IV daily x6 weeks per Infectious Disease Continue all previous home medications Scheduled Acetaminophen (Acetaminophen), 650 MG PO Q8HR Apixaban Base (Eliquis), 5 MG PO BID Aspirin (Aspirin Low Dose), 81 MG PO DAILY Atorvastatin Calcium (Atorvastatin Calcium), 80 MG PO HS Baclofen (Baclofen), 5 MG PO Q8HR Empagliflozin (Jardiance), 10 MG PO DAILY Hydromorphone Hcl (Dilaudid), 1 TAB PO TID Indomethacin (Indocin), 25 MG PO TID Linezolid (Zyvox), 600 MG PO BID Metoprolol Succinate (Toprol Xl), 25 MG PO DAILY Oxycodone Hcl (OxyCONTIN ER Tablet), 1 TAB PO BID Pantoprazole Sodium Sesquihydr (Pantoprazole Sodium), 40 MG PO DAILY@0600 Tamsulosin Hcl (Flomax), 0.4 MG PO QPM Scheduled PRN Hydromorphone Hcl (Dilaudid), 1 TAB PO Q4HPRN PRN for PAIN SCALE 7 THRU 10, (Reported) Lactulose (Lactulose), 30 ML PO Q6HPRN PRN Lidocaine HCl (Aspercreme Lidocaine), 4 % EX BID PRN Oxycodone HCl (Oxycodone Hydrochloride), 10 MG PO TIDPRN PRN Tramadol HCl (Tramadol HCl), 100 MG PO Q12HP PRN Tramadol Hcl (Tramadol Hcl), 200 MG PO BIDPRN PRN for PAIN SCALE 7 THRU 10, (Reported) 36 Discharge Statement: "Patient was advised to return to the ER or call 911 if any headaches, dizziness, shortness of breath, chest pain, abdominal pain, bleeding, fevers, or worsening of medical condition. Patient was counseled about treatment plan, medications, possible side effects, patientverbalized understanding. All questions were answered to the best of my ability. This discharge took greater then 30 minutes in planning, reviewing documentation, counseling the patient, and discussing with other team members." ASSESSMENT ASSESSMENT Assessment Left foot osteomyelitis Date of Service: Jan 12, 2025 Billing Provider: XOCHITL GRAY NP Common Visit Codes: 26082-YIW/OBS DISCH DAY >30min XOCHITL GRAY NP Jan 12, 2025 14:09
[2025-01-12] MEDS: VANCOMYCIN 750MG KIT 100 ML IV SCH (15:06)
[2025-01-12] MEDS ORDERED: VALS1TAB56 PO (16:34)
--- NOTE | 2025-01-13 07:53 | DVHPN2 ---
Consult Progress Note Date Seen: Jan 12, 2025 Subjective Patient reports: Other (agreed to go with toya adriana once patients been discharged and to follow up with them for osteomyelitis ) Objective vital signs Vital Sign Date Time Temp Pulse Resp B/P (MAP) Pulse Ox O2 Delivery O2 Flow Rate FiO2 01/12/25 18:05 68 17 113/74 01/12/25 16:57 98.6 96 98.6 01/12/25 07:40 Room Air* 0 21 Total Intake and Output 01/12/25 01/12/25 01/13/25 15:00 23:00 07:00 Intake Total 1100 ml Output Total 600 ml Balance 500 ml medications Physical Exam: General: NAD Neck: Supple. No masses. HEENT: PERRL. Normal lids and conjunctiva. Moist mucous membranes. Oropharynx without lesions, exudates or excessive erythema. Normal appearance of the external aspects of the nose and ears. Heart: Regular rhythm, normal rate. No murmur. No lower extremity edema. Lungs: Normal respiratory effort. Clear to auscultation bilaterally. No wheezes. No crackles. Abdomen: Soft. Non-tender. Non-distended. No masses or abdominal hernia. Msk: 4/5 strength upper and lower extremities. No digital cyanosis. Normal tone in all 4 limbs. Skin: Necrotic ulceration left heel. Warm and dry, no rashes. Neuro: Alert. No facial droop or slurred speech. Extra-ocular movements intact. Sensation intact to soft touch in all 4 limbs. Psych: Appropriate mood. Full affect. Oriented to person, place, time, and situation. laboratory and microbiology Laboratory Tests 01/12/25 10:12 Test 01/12/25 10:12 Range/Units Serum Glucose 165 H 74-106 mg/dL Problem List/Assessment/Plan Problems(with codes): (1) Infection of implantable cardioverter-defibrillator (ICD) lead (2) Chronic pain (3) Tibial plateau fracture, left (4) Staphylococcus epidermidis bacteremia (5) Elevated lactic acid level (6) Pneumonia, unspecified organism (7) Frequent falls Problem List/Assessment/Plan ASSESSMENT AND PLAN: ID Problem List: \-- CHF (congestive heart failure) \-- Diabetes mellitus \-- Myocardial infarction \-- Pulmonary embolism (history) \-- Necrotic chronic left heel ulcer (probable osteomyelitis) \-- Recent pneumonia Assessment This is a 64 y.o. male with a significant past medical history including congestive heart failure, diabetes, prior myocardial infarction, and a history of pulmonary embolism, who presents with shortness of breath and worsening chronic necrotic ulcer of the left heel with associated leg swelling. The patient was admitted for further evaluation of pneumonia and chronic necrotic left lower extremity ulcer. Imaging and cultures outlined below. Leg ulcer has worsened with increased swelling and necrosis. Recent blood cultures revealed ESBL (extended-spectrum beta-lactamase) E. coli (sensitive to ertapenem, meropenem, trimethoprim-sulfamethoxazole \[Bactrim], and piperacillin-tazobactam \[Zosyn], resistant to fluoroquinolones), as well as growth of methicillin-sensitive Staph aureus, Proteus (ampicillin-resistant), and Enterococcus (ampicillin-sensitive). Patient is currently on ertapenem for presumed osteomyelitis. The wound is being treated with offloading and MediHoney ointment per podiatry recommendations. Hemoglobin A1c is elevated at 7.1. Blood glucose on admission was 287 mg/dL. Repeat imaging of the left foot with X-ray showed partial amputations of all digits at the level of metatarsal spaces with moderate swelling, grossly intact overlying tissue, and atherosclerotic calcifications, but without definite evidence of osteomyelitis. CT foot showed diffuse soft tissue edema and swelling possibly representing cellulitis and suspicion for osteomyelitis; further evaluation with MRI can be considered. No deep vein thrombosis (DVT) was identified on venous ultrasound of the left lower extremity. Chest imaging revealed bilateral patchy airspace disease consistent with pneumonia and emphysematous changes. The patients pulmonary embolism history was addressed; no acute PE seen on recent imaging. Labs revealed mild leukopenia that has since resolved. No fevers; some mild hypothermia noted. 8/5: continues to have pain on foot , otherwise appears improving from infection 8/6: history of drug use , ideally would not be able to use piccline , however [facility] and currently has a urine drug screen that is negative . CRP is 0.16 and sed rate is 12 decreasing the likelihood of a new osteomyelitis infection , no need for triple bone scan Plan: - in this scenario would provide IV antibiotics , ideally most beneficial for 6 weeks using piccline that is already in place from prior hospitalization - refer to pain management due to infection related pain \-- Continue current course of ertapenem for presumed osteomyelitis inpatient \-- consider six weeks of IV ertapenem via PICC for osteomyelitis given poor healing potential (hyperglycemia, severe PAD, comorbidities); If unable to tolerate, consider oral therapy (Bactrim 1ds bid or cefdinir 300mg po bid x 6 weeks) \-- Monitor sed rate and CRP for ongoing inflammation; pursue MRI if suspicion for osteomyelitis remains high \-- Continue offloading of left foot and MediHoney dressing as per podiatry \-- Tight glycemic control; aim fasting glucose <180 mg/dL to optimize wound healing \-- Outpatient wound care follow-up and podiatry follow-up for potential surgical intervention if infection or ulcer worsens \-- Monitor for systemic signs of infection or clinical decline \-- No evidence of DVT; continue VTE prophylaxis as indicated \-- Continue management of CHF and diabetes Isolation Precautions: standard Plan discussed with: Other Dietary Evaluation Review Recommendations by RD: Protein Supplementation Comments: 1) Initiate Daniel @ 1 pk bid 2) Initiate MVI @ 1 tb qd 3) Initiate vitamin C @ 500 mg bid and zinc sulfate @ 220 mg for 7 days 4) Add cardiac restriction to 60g CCHO diet 5) Encourage optimal PO intake 6) Collect HbA1c 7) Follow-up with cardiology and podiatry 8) Continue to monitor I&O, labs, and skin integrity Expected Outcomes/Goals: 1) appetite and labs to improve 2) wounds to improve 3) f/u in 3-5 days AAKASH ALBERTO MD Jan 13, 2025 07:53
== END 2025-01-12 19:20 | disposition home or self-care (01) | DRG 133 ==
LOC: EDBD 20:01 → ER 20:01 → OVERFLOW 23:13 → TELE-CENTR 01-01 01:47
PROVIDERS: ADMIT Nurse Practitioner Acute Care; ATTEND Nurse Practitioner Acute Care
DX: J96.00 Acute respiratory failure, unspecified whether with hypoxia or hypercapnia (principal); I50.23 Acute on chronic systolic (congestive) heart failure; E44.0 Moderate protein-calorie malnutrition; R64 Cachexia; D68.69 Other thrombophilia; E11.52 Type 2 diabetes mellitus with diabetic peripheral angiopathy with gangrene; D63.8 Anemia in other chronic diseases classified elsewhere; E87.20 Acidosis, unspecified; I11.0 Hypertensive heart disease with heart failure; E86.0 Dehydration; I38 Endocarditis, valve unspecified; E11.621 Type 2 diabetes mellitus with foot ulcer; L97.429 Non-pressure chronic ulcer of left heel and midfoot with unspecified severity; L03.116 Cellulitis of left lower limb; D72.819 Decreased white blood cell count, unspecified; E11.65 Type 2 diabetes mellitus with hyperglycemia; I25.10 Atherosclerotic heart disease of native coronary artery without angina pectoris; I25.5 Ischemic cardiomyopathy; E78.5 Hyperlipidemia, unspecified; F10.10 Alcohol abuse, uncomplicated; J43.9 Emphysema, unspecified; G89.4 Chronic pain syndrome; E11.69 Type 2 diabetes mellitus with other specified complication; M86.8X7 Other osteomyelitis, ankle and foot; Z16.24 Resistance to multiple antibiotics; Z16.23 Resistance to quinolones and fluoroquinolones; Z16.12 Extended spectrum beta lactamase (ESBL) resistance; Z95.5 Presence of coronary angioplasty implant and graft; Z68.1 Body mass index [BMI] 19.9 or less, adult; Z86.711 Personal history of pulmonary embolism; Z79.01 Long term (current) use of anticoagulants; Z95.1 Presence of aortocoronary bypass graft; Z79.891 Long term (current) use of opiate analgesic; Z89.432 Acquired absence of left foot; Z95.810 Presence of automatic (implantable) cardiac defibrillator; Z89.431 Acquired absence of right foot; Z87.891 Personal history of nicotine dependence; Z83.3 Family history of diabetes mellitus; Z88.5 Allergy status to narcotic agent; Z79.02 Long term (current) use of antithrombotics/antiplatelets; Z87.01 Personal history of pneumonia (recurrent); Z79.4 Long term (current) use of insulin; Z79.82 Long term (current) use of aspirin; Z79.899 Other long term (current) drug therapy
CPT/HCPCS: 36415; 71045; 71250; 71275; 73620; 73700; 80048; 80053; 80061; 80202; 80307; 81001; 82565; 82962; 83036; 83605; 83735; 83880; 84443; 84484; 85025; 85379; 85610; 85652; 85730; 86141; 87040; 87077; 87081; 87186; 87205; 93005; 93306; 93971; 96365; 96375; 99291; G0378; J1335; J1815; J2405; J2543; J3490

== ENCOUNTER 2025-02-18 20:50 | Inpatient (IN) | payer MEDICAID ==
[~2025-02-18] VITALS: Ht 185.4 cm; Wt 80.6 kg
[~2025-02-18 20:50] MED LIST changes: +HYDR2TAB58 PO; -TAMS1CAP25 PO; +TRAM-626 PO; +TRAM50TA2 PO; +VALS1TAB56 PO
--- NOTE | 2025-02-18 21:02 | ED.PDOC ---
HPI Comments 64-year-old male came to ER via EMS for chest pains. Patient has extensive cardiac history, diabetes, dyslipidemia, congestive heart failure, MO, status post CABG, cardiac stents x9. 30 minutes prior to arrival, patient was at home, when he developed sudden onset midsternal chest pain, pressure, radiating to the back, associated with nausea, vomiting, diaphoresis, shortness of breath. Upon arrival paramedics, EKG showed suspicious ST elevations. Chief Complaint: Chest pain Time Seen by MD: 21:02 Primary Care Provider: ? Reviewed Notes: Nurses Notes Allergies: Coded Allergies: Hydrocodone (Verified Allergy, Severe, LEG SWELLING, 04/25/24) Ketorolac Tromethamine (Verified Allergy, Unknown, 04/03/24) Home Meds Active Scripts Hydromorphone Hcl (Dilaudid) 2 Mg Tab, 1 TAB PO TID for 7 Days, #21 TAB Prov:XOCHITL GRAY BROACH GRINDER 01/12/25 Tramadol HCl (Tramadol HCl) 50 Mg Tab, 100 MG PO BID for 7 Days, #28 TAB Prov:XOCHITL GRAY [facility]OACH GRINDER 01/12/25 Valsartan (Valsartan) 40 Mg Tab, 40 MG PO DAILY for 30 Days, #30 TAB Prov:XOCHITL GRAY [facility]OACH GRINDER 01/12/25 Lidocaine HCl (Aspercreme Lidocaine) 4 % Liq, 4 % EX BID PRN for 30 Days, #120 LIQ Prov:DURGA DAVIS [facility] [place] 08/02/24 Linezolid (Zyvox) 600 Mg Tab, 600 MG PO BID for 60 Days, #120 TAB Prov:DURGA DAVIS [facility] [place] 08/02/24 Pantoprazole Sodium Sesquihydr (Pantoprazole Sodium) 40 Mg Tab, 40 MG PO DAILY@0600 for 30 Days, #30 TAB Prov:DURGA DAVIS [facility] [place] 08/02/24 Metoprolol Succinate (Toprol Xl) 50 Mg Tab, 25 MG PO DAILY for 30 Days, #15 TAB Prov:DURGA DAVIS [facility] [place] 08/02/24 Lactulose (Lactulose) 10 Gm/15 Ml Jeannie, 30 ML PO Q6HPRN PRN for 30 Days, #60 ML Prov:DURGA DAVIS [facility] [place] 2/24/25 Indomethacin (Indocin) 25 Mg Cp, 25 MG PO TID for 15 Days, #60 CAP Prov:DURGA DAVIS [facility] [place] 08/02/24 Empagliflozin (Jardiance) 10 Mg Tab, 10 MG PO DAILY for 30 Days, #30 TAB Prov:DURGA DAVIS [facility] [place] 08/02/24 Atorvastatin Calcium (ATORVASTATIN CALCIUM) 20 Mg Tab, 80 MG PO HS for 30 Days, #120 TAB Prov:JIMDURGA CIFUENTES [facility] [place] 08/02/24 Aspirin (Aspirin Low Dose) 81 Mg Tab, 81 MG PO DAILY for 30 Days, #30 TAB Prov:DURGA DAVIS [facility] [place] 08/02/24 Apixaban Base (ELIQUIS) 5 Mg Tab, 5 MG PO BID for 30 Days, #60 TAB Prov:JIMDURGA CIFUENTES [facility] [place] 08/02/24 Acetaminophen (Acetaminophen) 325 Mg Tab, 650 MG PO Q8HR for 10 Days, #60 TAB Prov:JIMDURGA KEARNEY [facility] [place] 08/02/24 Oxycodone HCl (Oxycodone Hydrochloride) 10 Mg Tab, 10 MG PO TIDPRN PRN for 7 Day s, #21 TAB Prov:TAMMY ANNE MD 04/07/24 Oxycodone Hcl (OxyCONTIN ER Tablet) 10 Mg Tb, 1 TAB PO BID for 7 Days, #14 TAB 0 Refills Prov:TAMMY ANNE MD 04/07/24 Tamsulosin Hcl (Flomax) 0.4 Mg Cap, 0.4 MG PO QPM for 30 Days, #30 CAP 0 Refills Prov:TAMMY ANNE MD 04/07/24 Baclofen (Baclofen) 10 Mg Tab, 5 MG PO Q8HR for 30 Days, #45 TAB 0 Refills Prov:TAMMY ANNE MD 04/07/24 Reported Medications Tramadol Hcl (Tramadol Hcl) 50 Mg Tab, 200 MG PO BIDPRN PRN for PAIN SCALE 7 THRU 10, MG 01/01/25 Hydromorphone Hcl (Dilaudid) 2 Mg Tab, 1 TAB PO Q4HPRN PRN for PAIN SCALE 7 THRU 10, #120 TAB 01/01/25 Information Source: Patient, Emergency Med Personnel Mode of Arrival: EMS Severity: Moderate Timing: Minutes Duration: Since onset Prehospital treatment: Oxygen Location: Substernal Radiation: Back Quality: Pressure Onset: With Light Exertion Cardiac Risk Factors: Hyperlipidemia, Diabetes, Other (CHF) PE Risk Factors: Recent Surgery History of: Similar pain in past, MO Associated Signs and Symptoms: SOB, Diaphoresis, N/V Past Medical History PAST MEDICAL HISTORY: CAD, CHF, DM, High Lipids, MO, PE Past Medical History (Other): Left foot osteomyelitis Surgical History: CABG, PTCA, Tonsillectomy Surgical History (Other): Bilateral partial foot amputation Family History Family History: Reviewed,noncontributory to illness Social History Smoker: Non-Smoker Alcohol: Occasionally Drugs: Denies Drug Use Lives In: Home Constitutional: denies: chills, diaphoresis, fatigue, fever, malaise, sweats, weakness, others EENTM: denies: blurred vision, double vision, ear bleeding, ear discharge, ear drainage, ear pain, ear ringing, eye pain, eye redness, hearing loss, mouth pain, mouth swelling, nasal discharge, nose bleeding, nose congestion, nose pain, photophobia, tearing, throat pain, throat swelling, voice changes, others Respiratory: denies: cough, hemoptysis, orthopnea, SOB at rest, shortness of breath, SOB with excertion, stridor, wheezing, others Cardiovascular: reports: chest pain; denies: dizzy spells, diaphoresis, Dyspnea on exertion, edema, irregular heart beat, left arm pain, lightheadedness, palpitations, PND, syncope, others Gastrointestinal: reports: nausea, vomiting; denies: abdomen distended, abdominal pain, blood streaked bowels, constipated, diarrhea, dysphagia, difficulty swallowing, hematemesis, melena, poor appetite, poor fluid intake, rectal bleeding, rectal pain, others Genitourinary: denies: burning, dysuria, flank pain, frequency, hematuria, incontinence, penile discharge, penile sore, pain, testicle pain, testicle swelling, urgency, others Neurological: denies: dizziness, fainting, headache, left sided numbness, left sided weakness, numbness, paresthesia, pre-existing deficit, right sided numbness, right sided weakness, seizure, speech problems, tingling, tremors, wea kness, others Musculoskeletal: reports: back pain; denies: gout, joint pain, joint swelling, muscle pain, muscle stiffness, neck pain, others Integumetry: denies: bruises, change in color, change in hair/nails, dryness, laceration, lesions, lumps, rash, wounds, others Allergic/Immunocompromised: denies: Difficulty Healing, Frequent Infections, Hives, Itching, others Hematologic/Lymphatic: denies: anemia, blood clots, easy bleeding, easy bruising, swollen glands, others Endocrine: denies: excessive hunger, excessive sweating, excessive thirst, excessive urination, flushing, intolerance to cold, intolerance to heat, unexplained weight gain, unexplained weight loss, others Psychiatric: denies: anxiety, bipolar disorder, depression, hopeless, panic disorder, schizophrenia, sleepless, suicidal, others Physical Exam General Appearance: No Apparent Distress, Normal HEENT: Normal ENT Inspection, Pharynx Normal, TMs Normal Neck: Full Range of Motion, Non-Tender, Normal, Normal Inspection Respiratory: Chest Non-Tender, Lungs Clear, No Accessory Muscle Use, No Respiratory Distress, Normal Breath Sounds Cardiovascular: No Edema, No JVD, No Murmur, No Gallop, Normal Peripheral Pulses, Regular Rate/Rhythm Breast Exam: Deferred Gastrointestinal: No Organomegaly, Non Tender, No Pulsatile Mass, Normal Bowel Sounds, Soft Genitalia: Deferred Pelvic: Deferred Rectal: Deferred Extremities: No calf tenderness, Normal capillary refill, Normal range of motion, Non-tender, No pedal edema, Other (Bilateral partial foot amputation) Musculoskeletal : Apperance: Normal Neurologic: Alert, nut sorter II-XII nml as Tested, No Motor Deficits, Normal Affect, Normal Mood, No Sensory Deficits Cerebellar Function: Normal Reflexes: Normal Skin: Dry, Normal Color, Warm Lymphatic: No Adenopathy EKG EKG : Pulse Rate (adult): 76 Cardiac Rhythm: NSR Comments Nonspecific T-wave inversion, inferior Q-waves, ST-elevation Was a procedure done? Was a procedure done?: No CP Differential Dx Differential Diagnosis: Angina, Anxiety / Panic Attack, Hyperventilation Differential Diagnosis: Angina, Chest Wall Pain, Costochondritis, Esophageal reflux/spasm, Gastritis, Myocardial Infarction, Pneumonia X-Ray, Labs, Meds, VS Vital Signs Date Time Temp Pulse Resp B/P (MAP) Pulse Ox O2 Delivery O2 Flow Rate FiO2 02/18/25 21:03 100 20 94 Room Air* 0 21 02/18/25 21:03 98.3 100 20 114/58 94 98.3 02/18/25 21:02 76 02/18/25 20:55 98.3 98 20 117/62 (80) 95 98.3 02/18/25 20:50 76 Lab Test 02/18/25 20:50 Range/Units White Blood Count 8.6 4.4-10.8 10^3/uL Red Blood Count 4.39 L 4.5-5.90 10^6/uL Hemoglobin 13.9 13.5-17.5 g/dL Hematocrit 40.2 L 41.0-53.0 % Mean Corpuscular Volume 91.6 80.0-100.0 fL Mean Corpuscular Hemoglobin 31.6 28.0-32.0 pg Mean Corpuscular Hemoglobin Concent 34.4 32.0-36.0 g/dL Red Cell Distribution Width 14.1 11.8-14.3 % Platelet Count 181 140-450 10^3/uL Mean Platelet Volume 8.1 6.9-10.8 fL Neutrophils (%) (Auto) 58.5 37.0-80.0 % Lymphocytes (%) (Auto) 25.3 10.0-50.0 % Monocytes (%) (Auto) 9.1 0.0-12.0 % Eosinophils (%) (Auto) 6.2 0.0-7.0 % Basophils (%) (Auto) 0.9 0.0-2.0 % Neutrophils # (Auto) 5.0 1.6-8.6 10 ^3/uL Lymphocytes # (Auto) 2.2 0.4-5.4 10 ^3/uL Monocytes # (Auto) 0.8 0-1.3 10 ^3/uL Eosinophils # (Auto) 0.5 0-0.8 10 ^3/uL Basophils # (Auto) 0.1 0-0.2 10 ^3/uL Nucleated Red Blood Cells 0.1 % Sodium Level 139 136-145 mmol/L Potassium Level 3.3 L 3.5-5.1 mmol/L Chloride Level 104 98-107 mmol/L Carbon Dioxide Level 19 L 20-31 mmol/L Anion Gap 16 H 5-15 Blood Urea Nitrogen 8 L 9-23 mg/dL Creatinine 0.94 0.700-1.30 mg/dL Glomerular Filtration Rate Calc 91 >90 mL/min BUN/Creatinine Ratio 8.5 L 10.0-20.0 Serum Glucose 316 H 74-106 mg/dL Calcium Level 8.7 8.7-10.4 mg/dL Magnesium Level 2.3 1.6-2.6 mg/dL Total Bilirubin 0.4 0.2-1.0 mg/dL Aspartate Amino Transferase (AST) 17 13-40 U/L Alanine Aminotransferase (ALT) 10 7-40 U/L Alkaline Phosphatase 135 H 46-116 U/L Troponin I High Sensitivity 3 L </=54 ng/L Total Protein 7.1 5.7-8.2 g/dL Albumin 4.0 3.2-4.8 g/dL Time of 1ST Reevaluation: 20:56 Reevaluation 1ST: Unchanged Patient Education/Counseling: Diagnosis, Treatment, Prognosis, Need For Follow Up Family Education/Counseling: No Family Present Comments Patient has been extensive cardiac history and comorbidities. He has had mu ltiple stents and bypass surgeries previously as well as a pacemaker. Patient presents with a chest pain which he feels is similar to his prior MIs. Code STEMI was called immediately upon patient's arrival EKG was sent to Dr. 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 SEPSIS Sepsis Screen Physician Orders Chest Portable (02/18/25 20:52) Company Dancer (02/18/25 20:52) Blood Pressure (02/18/25 20:52) Pulse Oximetry (02/18/25 20:52) Sodium Chloride Lock (Saline Lock Ns) (02/18/25 22:00) Electrocardigram (02/18/25 20:52) Oxygen Per Hour (02/18/25 20:52) Cardiac Rehabilitation - Outpa (02/18/25 ) Comprehensive Metabolic Panel (02/20/25 04:00) Electrocardigram (02/18/25 21:52) Electrocardigram (02/18/25 23:52) Type And Screen (02/18/25 21:13) Cl Left Heart Cath (02/18/25 21:23) Vital Signs Date Time Temp Pulse Resp B/P (MAP) Pulse Ox O2 Delivery O2 Flow Rate FiO2 02/18/25 21:03 100 20 94 Room Air* 0 21 02/18/25 21:03 98.3 100 20 114/58 94 98.3 02/18/25 21:02 76 02/18/25 20:55 98.3 98 20 117/62 (80) 95 98.3 02/18/25 20:50 76 Laboratory Tests Test 02/18/25 20:50 White Blood Count 8.6 10^3/uL (4.4-10.8) Departure 1 Departure Time of Disposition: 21:21 Impression: Primary Impression: STEMI (ST elevation myocardial infarction) Qualified Codes: I21.19 - ST elevation (STEMI) myocardial infarction involving other coronary artery of inferior wall Disposition: ADMITTED INPATIENT Admit to: ICU Condition: Serious Discharged With: Self Critical Care Note Critical Care Time?: Yes (45 min-critical care time only) Critical care comment: Due to concerns for patients condition deteriorating, the care required my highest level of attention and readiness to intervene. I assessed the patient, reviewed the medical records, ordered the appropriate tests and treatments, then reassessed for results and responsiveness. I communicated with medical personnel and consultants and formulated a plan of care. Total critical care time excludes any procedures 45 mins Stability Stability form required: No Heart Score Heart Score: Heart Score Response (Comments) Value History Highly Suspicious [address]-Deviation 2 Age 45-64 1 Risk Factors >3 or Hx ASHD 2 Troponin Normal limit 0 Total 7 I personally scribed for GLORIA ACE MD ([email or web address]) on 02/18/25 at 21:02. Electronically submitted by Emil Eid ([facility] GLORIA ACE MD Feb 18, 2025 21:02
[2025-02-18 21:03] VITALS: PULSE 100; RESP 20; O2SAT 94
[2025-02-18 21:11] LABS: Hematocrit 40.2 % (41.0-53.0); Hemoglobin 13.9 g/dL (13.5-17.5); Mean Corpuscular Hemoglobin 31.6 pg (28.0-32.0); Mean Corpuscular Volume 91.6 fL (80.0-100.0); Nucleated Red Blood Cells % 0.1 %
[2025-02-18 21:27] LABS: Alanine Aminotransferase 10 U/L (7-40); Albumin 4.0 g/dL (3.2-4.8); Anion Gap 16 (5-15); BUN/Creatinine Ratio 8.5 (10.0-20.0); Chloride 104 mmol/L (98-107); Magnesium 2.3 mg/dL (1.6-2.6); Sodium 139 mmol/L (136-145); Total Protein 7.1 g/dL (5.7-8.2)
[2025-02-18 21:28] LABS: Bilirubin, Total 0.4 mg/dL (0.2-1.0)
[2025-02-18] MEDS: fentaNYL CITRATE 100 MCG/2 ML VL ONE ×2 (21:29→22:21)
[2025-02-18] MEDS: LIDOCAINE 2%HCL (LOCAL ANESTH.) INJ 20ML MDV ONE (21:29)
[2025-02-18] MEDS: MIDAZOLAM HCL 2MG/2ML 2ml VIAL (1mg/ml) ONE ×2 (21:29→22:19)
[2025-02-18] MEDS: SODIUM CHL 0.9% 50 ML ONE ×2 (21:29→22:39)
[2025-02-18] MEDS: ANGIOMAX 250 MG VIAL IV ONE ×2 (21:29→22:39)
[2025-02-18 21:30] LABS: Alkaline Phosphatase 135 U/L (46-116); Blood Urea Nitrogen 8 mg/dL (9-23); Calcium 8.7 mg/dL (8.7-10.4); Carbon Dioxide 19 mmol/L (20-31); Glucose 316 mg/dL (74-106); Potassium 3.3 mmol/L (3.5-5.1)
[2025-02-18] MEDS: IODIXANOL 320MG/ML 100ML BTL IV ONE ×3 (21:38→23:16)
--- NOTE | 2025-02-18 21:51 | DVHINCON2 ---
Date Seen: Feb 18, [address] Swanson Reason for Consultation Chest pain, acute ST-elevation myocardial infarction History of Present Illness 64-year-old gentleman with a previous history of underlying coronary artery disease presents with about an hour and a half since his chest pain started. He had substernal in nature radiating to his back. He is slightly diaphoretic and has been dry heaving. Does have a previous history of significant CAD as mentioned. He was having chest pain no proximally a week and a half ago but very mild. Today it became severe. Past Medical History He has past medical history is complex but is consistent with coronary artery disease. It coronary bypass grafting of three vessels in 1999. He had bypass grafting of four vessels in 2013. Since then he has had nine stents placed. 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 He does have a nonhealing ulcer in his left heel. He has had a peripheral vascular procedure to open with a appears to be the femoral arteries as he describes as well as iliacs bilaterally. Severe peripheral vascular disease. Diabetes. Hypertension. Hyperlipidemia. History of significant arthritis. Past Surgical History Past history of amputations of his toes. History of ICD placement. History of peripheral vascular disease procedures recently at [facility]. Family History: Diabetes mellitus G8 MOTHER FHx: kidney disease G8 MOTHER Allergies: Coded Allergies: Hydrocodone (Verified Allergy, Severe, LEG SWELLING, 04/25/24) Ketorolac Tromethamine (Verified Allergy, Unknown, 04/03/24) Home Meds Active Scripts Hydromorphone Hcl (Dilaudid) 2 Mg Tab, 1 TAB PO TID for 7 Days, #21 TAB Prov:XOCHITL GRAY EMERGENCY REGISTRAR 01/12/25 Tramadol HCl (Tramadol HCl) 50 Mg Tab, 100 MG PO BID for 7 Days, #28 TAB Prov:XOCHITL GRAY EMERGENCY REGISTRAR 01/12/25 Valsartan (Valsartan) 40 Mg Tab, 40 MG PO DAILY for 30 Days, #30 TAB Prov:XOCHITL GRAY EMERGENCY REGISTRAR 01/12/25 Lidocaine HCl (Aspercreme Lidocaine) 4 % Liq, 4 % EX BID PRN for 30 Days, #120 LIQ Prov:DURGA DAVIS 08/02/24 Linezolid (Zyvox) 600 Mg Tab, 600 MG PO BID for 60 Days, #120 TAB Prov:[facility] 08/02/24 Pantoprazole Sodium Sesquihydr (Pantoprazole Sodium) 40 Mg Tab, 40 MG PO DAILY@0600 for 30 Days, #30 TAB [facility]/02/24 Metoprolol Succinate (Toprol Xl) 50 Mg Tab, 25 MG PO DAILY for 30 Days, #15 TAB [facility]/02/24 Lactulose (Lactulose) 10 Gm/15 Ml Jeannie, 30 ML PO Q6HPRN PRN for 30 Days, #60 ML Prov:[facility] 08/02/24 Indomethacin (Indocin) 25 Mg Cp, 25 MG PO TID for 15 Days, #60 CAP [facility]24 Empagliflozin (Jardiance) 10 Mg Tab, 10 MG PO DAILY for 30 Days, #30 TAB Prov:[facility] 08/02/24 Atorvastatin Calcium (ATORVASTATIN CALCIUM) 20 Mg Tab, 80 MG PO HS for 30 Days, #120 TAB [facility] 08/02/24 Aspirin (Aspirin Low Dose) 81 Mg Tab, 81 MG PO DAILY for 30 Days, #30 TAB [facility] 08/02/24 Apixaban Base (ELIQUIS) 5 Mg Tab, 5 MG PO BID for 30 Days, #60 TAB [facility] 08/02/24 Acetaminophen (Acetaminophen) 325 Mg Tab, 650 MG PO Q8HR for 10 Days, #60 TAB [facility] 08/02/24 Oxycodone HCl (Oxycodone Hydrochloride) 10 Mg Tab, 10 MG PO TIDPRN PRN for 7 Days, #21 TAB Prov:TAMMY ANNE MD 04/07/24 Oxycodone Hcl (OxyCONTIN ER Tablet) 10 Mg Tb, 1 TAB PO BID for 7 Days, #14 TAB 0 Refills Prov:TAMMY ANNE MD 04/07/24 Tamsulosin Hcl (Flomax) 0.4 Mg Cap, 0.4 MG PO QPM for 30 Days, #30 CAP 0 Refills Prov:TAMMY ANNE MD 04/07/24 Baclofen (Baclofen) 10 Mg Tab, 5 MG PO Q8HR for 30 Days, #45 TAB 0 Refills Prov:TAMMY ANNE MD 04/07/24 Reported Medications Tramadol Hcl (Tramadol Hcl) 50 Mg Tab, 200 MG PO BIDPRN PRN for PAIN SCALE 7 THRU 10, MG 01/01/25 Hydromorphone Hcl (Dilaudid) 2 Mg Tab, 1 TAB PO Q4HPRN PRN for PAIN SCALE 7 THRU 10, #120 TAB 01/01/25 Current Medications Current Medications Medications (Trade) Dose Ordered Sig/Sunny Route PRN Reason Start Time Stop Time Status Last Admin Sodium Chloride (Saline Lock Ns) 10 ml Q8HR IV 02/18/25 22:00 Review of Systems HEENT examination reveals no headaches visual or auditory disturbances. Chest and lungs as noted above. GI negative. Musculoskeletal as noted with a history of amputations. GI negative. Endocrine hematological oncological as noted above. Vital Signs Vital Signs Date Time Temp Pulse Resp B/P (MAP) Pulse Ox O2 Delivery O2 Flow Rate FiO2 02/18/25 21:03 100 20 94 Room Air* 0 21 02/18/25 21:03 98.3 114/58 98.3 Physical Exam On physical examination is awake and oriented. He appears to be in moderate pain. He has and comfortable and complaining of chest pain. Mildly diaphoretic. HEENT examination is otherwise unremarkable moderate jugular distention no carotid bruits. Lungs reveal diminished air entry. Crackles bilaterally. Heart exam reveals a regular S1-S2 soft S4. Abdominal examination is unremarkable. Extremities show diminished perfusion. Amputation of all his toes. Nonhealing ulcer left heel. Diminished pulses. No significant edema. Neurologically we will diminished proprioception. Labs/Diagnostic Data Labs Test 02/18/25 20:50 Range/Units White Blood Count 8.6 4.4-10.8 10^3/uL Red Blood Count 4.39 L 4.5-5.90 10^6/uL Hemoglobin 13.9 13.5-17.5 g/dL Hematocrit 40.2 L 41.0-53.0 % Mean Corpuscular Volume 91.6 80.0-100.0 fL Mean Corpuscular Hemoglobin 31.6 28.0-32.0 pg Mean Corpuscular Hemoglobin Concent 34.4 32.0-36.0 g/dL Red Cell Distribution Width 14.1 11.8-14.3 % Platelet Count 181 140-450 10^3/uL Mean Platelet Volume 8.1 6.9-10.8 fL Neutrophils (%) (Auto) 58.5 37.0-80.0 % Lymphocytes (%) (Auto) 25.3 10.0-50.0 % Monocytes (%) (Auto) 9.1 0.0-12.0 % Eosinophils (%) (Auto) 6.2 0.0-7.0 % Basophils (%) (Auto) 0.9 0.0-2.0 % Neutrophils # (Auto) 5.0 1.6-8.6 10 ^3/uL Lymphocytes # (Auto) 2.2 0.4-5.4 10 ^3/uL Monocytes # (Auto) 0.8 0-1.3 10 ^3/uL Eosinophils # (Auto) 0.5 0-0.8 10 ^3/uL Basophils # (Auto) 0.1 0-0.2 10 ^3/uL Nucleated Red Blood Cells 0.1 % Sodium Level 139 136-145 mmol/L Potassium Level 3.3 L 3.5-5.1 mmol/L Chloride Level 104 98-107 mmol/L Carbon Dioxide Level 19 L 20-31 mmol/L Anion Gap 16 H 5-15 Blood Urea Nitrogen 8 L 9-23 mg/dL Creatinine 0.94 0.700-1.30 mg/dL Glomerular Filtration Rate Calc 91 >90 mL/min BUN/Creatinine Ratio 8.5 L 10.0-20.0 Serum Glucose 316 H 74-106 mg/dL Calcium Level 8.7 8.7-10.4 mg/dL Magnesium Level 2.3 1.6-2.6 mg/dL Total Bilirubin 0.4 0.2-1.0 mg/dL Aspartate Amino Transferase (AST) 17 13-40 U/L Alanine Aminotransferase (ALT) 10 7-40 U/L Alkaline Phosphatase 135 H 46-116 U/L Troponin I High Sensitivity 3 L </=54 ng/L Total Protein 7.1 5.7-8.2 g/dL Albumin 4.0 3.2-4.8 g/dL Assessment Abnormal EKG showing possibly an acute inferior lateral wall infarction. Q- waves already present however patient still continues to have chest pain. Code STEMI was called. Underlying diabetes hypertension peripheral vascular disease. History of pulmonary embolisms. History of previous stenting and coronary bypass grafting. Congestive heart failure with reduced ejection fraction likely history of ICD placement. Plan/Recommendation Patient will undergo urgent cardiac catheterization therapeutic intervention Plan discussed with: Patient NYHA Physical activity limitations: Class3(Marked) ordinary Date of Service: Feb 18, 2025 Billing Provider: COLLINS MEJIA Sr., MD Cardiology Common Codes: 71083-QPSQMTY INP/OBS CARE (High) COLLINS MEJIA Sr., MD Feb 18, 2025 21:51
--- NOTE | 2025-02-18 21:51 | DVH ---
CHEST RADIOGRAPH Indication: STEMI Technique: 1 view Comparison: XY CHEST PORTABLE on DOS: 12/31/24, TRANSESOPH ECHOCARDIOGRAM on DOS: 07/27/24, XY CHEST PO RTABLE on DOS: 07/22/24, XY CHEST XRAY 1 VIEW on DOS: 04/26/24, XY CHEST PORTABLE on DOS: 04/24/24 FINDINGS: Lines and Tubes: Unchanged right IJ catheter and left implanted cardiac device. Overlying defibrillat or pads. Lungs/Pleura: No focal consolidation, pleural effusion or pneumothorax. Cardiomediastinum: Normal heart size with prior CABG. Other: No acute osseous findings. Sternotomy wires remain midline. IMPRESSION: 1. No acute cardiopulmonary abnormality.
[2025-02-18] MEDS: SODIUM CHLOR 0.9% PF (SALINE LOCK) 10ML VIAL/SYR IV SCH (22:00)
--- NOTE | 2025-02-18 23:42 | DVHOP2 ---
Operative Report - 2 Report Details Date: 02/18/25 Preop Diagnosis: Acute coronary syndrome Postop Diagnosis: Severe CAD Surgeon: Collins Burton MD Anesthesiologist: Conscious sedation Anesthesia: Mac, Local Consent: The patient was informed of the risks and benefits of the procedure. These include but are not limited to complications of anesthesia, postoperative infection, incomplete relief of symptoms, recurrence of symptoms, damage to blood vessels, nerves and tendons, deep venous thrombosis, pulmonary embolism and possible need for repeat surgery in the future. Complications: No complications Findings: Significant CAD, severe stenosis of saphenous graft to marginal branch. Indications for Surgery: Acute coronary syndrome/chest pain Name of Procedure Performed Left heart catheterization bilateral cine coronary angiography. Left ventriculography. Visualization of saphenous venous grafts and left internal mammary artery. PTCA and stenting of the circumflex marginal saphenous venous graft. Intravascular ultrasound evaluation of the saphenous venous graft. Shockwave therapy of the saphenous venous graft. Procedure Details Procedure Details: Prior local anesthesia with 2% lidocaine to the right groin and full informed consent obtained, under fluoroscopic and ultrasound guidance we were able to obtain access into the common femoral vein through which a six [place] sheath was then placed. We used Margaret catheters to evaluate both right and left coronary ostia and a six [place] JR4 guide to evaluate saphenous venous grafts and left internal mammary artery. No complications Hemodynamics: Aortic blood pressure was 100/60. End-diastolic pressure was 18. There was no gradient across the aortic valve on pullback. Coronary anatomy: The RCA is 100% occluded proximally. The left main is a medium caliber vessel it has a an acute angle from the ostium. It has moderate plaquing without severe disease. The left anterior descending coronary artery is occluded proximally. The circumflex is a medium caliber vessel, there is moderate plaquing throughout its proximal mid and distal segment. The proximal circumflex has no critical lesions. The 1st obtuse marginal branches occluded. The saphenous venous graft with the marginal branch has 90% stenosis pulled lead is calcified. The mid and distal segments are free of significant disease. There was good distal flow into the marginal branch. The saphenous venous graft to the RCA is occluded. There was a 2nd saphenous ve nous graft to the RCA also occluded. The left internal mammary artery to the LAD is patent. The runoff to the LAD is good. Ventriculography in the CARTER projection shows an EF of approximately 25% with global hypokinesis especially of the inferior basal wall of the left ventricle. Angioplasty was performed for which a AL1 guide was then placed into the origin of the saphenous graft pre dilatation with a 3-0 balloon followed by IVUS evaluation. He underwent shockwave therapy with six treatments with a 3.5 mm shockwave balloon. We then placed a 0.5 x 10 mm jose Medtronic drug-eluting stent. This was inflated to approximately 15-18 atmospheres. There was notable improved flow.. Impression: Decreased left ventricular ejection fraction. Severe coronary artery disease as noted above. Successful intravascular ultrasound evaluation PTCA stenting and shockwave therapy/lithotripsy treatment to the origin of the saphenous graft to the marginal. Recommendations: Continue current medical therapy. Risk factor modification. Condition Fair Disposition Still a Patient Date of Service: Feb 18, 2025 Billing Provider: COLLINS BURTON Sr., MD Cardiology Common Codes: [id number] INP/OBS CARE (High) Cardiology Procedure Codes: 24233 -PTCA W/STENT PLACEMENT, 40895-WDXX FOR STEMI W/STENT, 11317-LAMZ HEART CATH W/INTRA INJ COLLINS BURTON Sr., MD Feb 18, 2025 23:42
[2025-02-18 23:45] VITALS: BP 111/53; PULSE 67; RESP 16; TEMP 97.6; O2SAT 97
[2025-02-18] MEDS ORDERED: MORPHINE SULFATE INJ 2 MG/ml SYRG IV PRN (23:45)
[2025-02-19] VITALS (12 sets, daily range): BP systolic 97–136; BP diastolic 52–80; PULSE 63–78; RESP 16–18; TEMP 97–98.5; O2SAT 94–98
[2025-02-19] MEDS: CLOPIDOGREL BISULFATE 75 MG TAB PO ONE (00:11)
[2025-02-19] MEDS: HYDROmorphone HCL 2 MG/ML VL/or syr IV PRN (01:02)
--- NOTE | 2025-02-19 02:49 | ECG ---
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
[2025-02-19] MEDS ORDERED: DEXTROSE (50%) 50ML SYRG IV PRN (03:45)
[2025-02-19] MEDS: ACCU-CHEK COMFORT CURVE STRIP VI SCH (06:14)
[2025-02-19] MEDS: InsuLIN REG 1unit/0.01ml Soln (100units/ml) SC SCH (06:17)
[2025-02-19] MEDS: CLOPIDOGREL BISULFATE 75 MG TAB PO SCH (08:54)
[2025-02-19] MEDS: PANTOPRAZOLE 40 MG TAB PO SCH (08:54)
--- NOTE | 2025-02-19 14:57 | DVHHP2 ---
History of Present Illness Reason for Visit: Chest pain History of Present Illness This is a 64 years old male with past medical history coronary artery disease come in because of severe severe chest pain about 2 hours prior to emergency department. The patient had chest pain with substernal radiating to the back. Patient had diaphoretic and dry heaving. According to the patient about week ago he started experience the same chest pain but mild and went away after couple hours. In the ER, EKG done. Showed acute MN inferior and lateral area with ST- elevation. Code STEMI was called. Pulmonary Specialist took the patient to [facility] and emergency angiogram was done. The cardiac catheterization showed: The RCA is 100% occluded proximally. The left main is a medium caliber vessel it has a an acute angle from the ostium. It has moderate plaquing without severe disease. The left anterior descending coronary artery is occluded proximally. The circumflex is a medium caliber vessel, there is moderate plaquing throughout its proximal mid and distal segment. The proximal circumflex has no critical lesions. The 1st obtuse marginal branches occluded. The saphenous venous graft with the marginal branch has 90% stenosis pulled lead is calcified. The mid and distal segments are free of significant disease. There was good distal flow into the marginal branch. The saphenous venous graft to the RCA is occluded. There was a 2nd saphenous venous graft to the RCA also occluded. The left internal mammary artery to the LAD is patent. The runoff to the LAD is good. Ventriculography in the CARTER projection shows an EF of approximately 25% with global hypokinesis especially of the inferior basal wall of the left ventricle. Angioplasty was performed for which a AL1 guide was then placed into the origin of the saphenous graft pre dilatation with a 3-0 balloon followed by IVUS evaluation. He underwent shockwave therapy with six treatments with a 3.5 mm shockwave balloon. We then placed a 0.5 x 10 mm jose Medtronic drug-eluting stent. This was inflated to approximately 15-18 atmospheres. There was notable improved flow. We will admitted patient after cardiac catheterization done. When I see the patient he denied any chest pain or shortness for breath. He said he had some discomfort in his chest. No nausea and vomiting or diaphoresis. Cardiovascular: CAD (Status post stent x9. [id number] with 3 vessel, CABG 2012 with 4 vessels), HTN, MN, hyperipidemia, Other (Severe peripheral vascular disease status post stent in iliac bilateral) Pulmonary: Pulmonary embolus Endocrine: Diabetes, Other (OA) Review of Systems Cardiovascular: Chest Pain Gastrointestinal: Nausea Allergies: Coded Allergies: Hydrocodone (Verified Allergy, Severe, LEG SWELLING, 04/25/24) Ketorolac Tromethamine (Verified Allergy, Unknown, 04/03/24) Medications Current Medications Medications Dose Ordered Sig/Sunny Route Start Time Stop Time Status Last Admin Dose Admin Sodium Chloride 10 ml Q8HR IV 02/18/25 22:00 02/19/25 14:44 10 ML Nitroglycerin 0.4 mg Q5MINP PRN SL 02/18/25 23:45 Morphine Sulfate 2 mg Q30M PRN IV 02/18/25 23:45 Pantoprazole Sodium 40 mg DAILY PO 02/19/25 10:00 02/19/25 08:54 40 MG Aspirin 162 mg DAILY PO 02/20/25 10:00 Cancel Clopidogrel Bisulfate 75 mg DAILY PO 02/20/25 10:00 Cancel Hydromorphone HCl 0.5 mg Q4HPRN PRN IV 02/19/25 00:00 02/19/25 14:36 0.5 MG Aspirin 81 mg DAILY PO 02/19/25 10:00 02/19/25 09:18 81 MG Clopidogrel Bisulfate 75 mg DAILY PO 02/19/25 10:00 02/19/25 08:54 75 MG Diagnostic Test (Pha) 1 strip Q6HR 02/19/25 06:00 02/19/25 12:01 1 STRIP Insulin Human Regular Q6HR SC 02/19/25 06:00 02/19/25 06:17 6 UNITS Dextrose 50 ml UD PRN IV 02/19/25 03:45 Exam Vital Signs Vital Signs Date Time Temp Pulse Resp B/P (MAP) Pulse Ox O2 Delivery O2 Flow Rate FiO2 02/19/25 14:36 72 18 114/66 02/19/25 12:32 98.2 98 98.2 02/19/25 08:15 Nasal Cannula* 2 28 General Appearance: Alert, Oriented X3, Cooperative, No acute distress HEENT: Atraumatic, PERRLA, EOMI, Mucous membr. moist/pink Respiratory: Clear to auscultation, Normal air movement Cardiovascular: Regular rate, Normal S1, Normal S2, No murmurs, Gallops, Rubs Abdominal: Normal bowel sounds, Soft, No tenderness Extremities: No clubbing, No cyanosis, No edema, Normal pulses, No t enderness/swelling Neuro: Strength at 5/5 X4 ext, Cranial nerves 3-12 NL Psych/Mental Status: Mental status NL Labs/Xrays Labs Test 02/19/25 06:09 02/18/25 20:50 Range/Units POC Glucose 278 H 70-106 mg/dl White Blood Count 8.6 4.4-10.8 10^3/uL Red Blood Count 4.39 L 4.5-5.90 10^6/uL Hemoglobin 13.9 13.5-17.5 g/dL Hematocrit 40.2 L 41.0-53.0 % Mean Corpuscular Volume 91.6 80.0-100.0 fL Mean Corpuscular Hemoglobin 31.6 28.0-32.0 pg Mean Corpuscular Hemoglobin Concent 34.4 32.0-36.0 g/dL Red Cell Distribution Width 14.1 11.8-14.3 % Platelet Count 181 140-450 10^3/uL Mean Platelet Volume 8.1 6.9-10.8 fL Neutrophils (%) (Auto) 58.5 37.0-80.0 % Lymphocytes (%) (Auto) 25.3 10.0-50.0 % Monocytes (%) (Auto) 9.1 0.0-12.0 % Eosinophils (%) (Auto) 6.2 0.0-7.0 % Basophils (%) (Auto) 0.9 0.0-2.0 % Neutrophils # (Auto) 5.0 1.6-8.6 10 ^3/uL Lymphocytes # (Auto) 2.2 0.4-5.4 10 ^3/uL Monocytes # (Auto) 0.8 0-1.3 10 ^3/uL Eosinophils # (Auto) 0.5 0-0.8 10 ^3/uL Basophils # (Auto) 0.1 0-0.2 10 ^3/uL Nucleated Red Blood Cells 0.1 % Sodium Level 139 136-145 mmol/L Potassium Level 3.3 L 3.5-5.1 mmol/L Chloride Level 104 98-107 mmol/L Carbon Dioxide Level 19 L 20-31 mmol/L Anion Gap 16 H 5-15 Blood Urea Nitrogen 8 L 9-23 mg/dL Creatinine 0.94 0.700-1.30 mg/dL Glomerular Filtration Rate Calc 91 >90 mL/min BUN/Creatinine Ratio 8.5 L 10.0-20.0 Serum Glucose 316 H 74-106 mg/dL Calcium Level 8.7 8.7-10.4 mg/dL Magnesium Level 2.3 1.6-2.6 mg/dL Total Bilirubin 0.4 0.2-1.0 mg/dL Aspartate Amino Transferase (AST) 17 13-40 U/L Alanine Aminotransferase (ALT) 10 7-40 U/L Alkaline Phosphatase 135 H 46-116 U/L Troponin I High Sensitivity 3 L </=54 ng/L Total Protein 7.1 5.7-8.2 g/dL Albumin 4.0 3.2-4.8 g/dL SEPSIS Sepsis Screen Date sepsis recognized/suspect: Feb 18, 2025 Time Sepsis recognized/suspect: 2102 Recent Procedure: No On Antibiotic Therapy: No Respiratory Rate >20: No Heart Rate >90: No Temp<36 C (96.8 F) or >38.3 C: No SBP <90 or MAP <65 mmHG: No New Acute Mental Status Change: No Is the patient on CPAP, BIPAP,: No Vital Signs Date Time Temp Pulse Resp B/P (MAP) Pulse Ox O2 Delivery O2 Flow Rate FiO2 02/19/25 14:36 72 18 114/66 02/19/25 12:32 98.2 72 18 114/66 (82) 98 98.2 02/19/25 10:47 70 18 111/65 02/19/25 10:17 66 18 122/52 02/19/25 08:32 98.3 66 18 122/52 (75) 98 98.3 02/19/25 08:15 18 Nasal Cannula* 2 28 02/19/25 08:00 66 Medications Medications Dose Ordered Sig/Sunny Route Start Time Stop Time Status Last Admin Dose Admin Aspirin 81 mg DAILY PO 02/19/25 10:00 02/19/25 09:18 81 MG Clopidogrel Bisulfate 75 mg DAILY PO 02/19/25 10:00 02/19/25 08:54 75 MG Diagnostic Test (Pha) 1 strip Q6HR 02/19/25 06:00 02/19/25 12:01 1 STRIP Insulin Human Regular Q6HR SC 02/19/25 06:00 02/19/25 06:17 6 UNITS Pantoprazole Sodium 40 mg DAILY PO 02/19/25 10:00 02/19/25 08:54 40 MG Assessment/Plan Assessment/Plan Acute ST-elevation MN status post emergency cardiac catheterization History of coronary artery disease with multiple stent and CABG Diabetes type 2 Hypertension Hyperlipidemia Peripheral vascular disease Osteoarthritis Continuing current management. Continuing with Plavix. Continuing with hypertensive medication. Appreciate reconsignment clerk's input. Continuing with sliding scale insulin. Continuing with statin. Continuing with beta linsey. Mclean PRN for pain. At appreciate Cardiology input The patient is full code This medical document was created using an electronic medical record system with [employer] computerized dictation system. Although this document has been carefully reviewed, there may still be some phonetic and typographical errors. These areas are purely typographical due to imperfections of the software programs, and do not reflect any compromise in the patient's medical care. Plan discussed with: Patient Date of Service: Feb 19, 2025 Billing Provider: FRANCA ENCINAS MD Common Visit Codes: [id number] INP/OBS CARE (HIGH) FRANCA ENCINAS MD Feb 19, 2025 14:57
[2025-02-19] MEDS: NITROGLYCERIN 0.4 MG SL TAB SL PRN (17:00)
--- NOTE | 2025-02-19 19:38 | DVH ---
EXAM: US LT LOWER DVT HISTORY: rule out DVT, left lower extremity pain TECHNIQUE: Duplex Doppler evaluation of the deep venous system of the left lower extremity from the c ommon femoral vein to the popliteal vein including color Doppler and spectral/pulsed waveform analysi s was performed. COMPARISON: US LT LOWER DVT on DOS: 01/01/25 FINDINGS: The common femoral vein demonstrates appropriate compressibility and waveform variability. There is compressibility/patency of the great saphenous vein at the proximal thigh. The femoral vein demonstrates appropriate compressibility and waveform variability. The deep femoral vein demonstrates appropriate compressibility and waveform variability. The popliteal vein demonstrates appropriate compressibility and waveform variability. IMPRESSION: 1. No left femoropopliteal venous thrombosis. If clinical concern/symptoms persist or worsen, short-i nterval follow-up study is suggested.
[2025-02-20] VITALS (10 sets, daily range): BP systolic 99–127; BP diastolic 46–88; PULSE 60–65; RESP 15–20; TEMP 97.9–98.7; O2SAT 93–98
[2025-02-20 07:58] LABS: Alanine Aminotransferase 10 U/L (7-40); Albumin 3.8 g/dL (3.2-4.8); Alkaline Phosphatase 104 U/L (46-116); Anion Gap 11 (5-15); BUN/Creatinine Ratio 13.2 (10.0-20.0); Bilirubin, Total 0.5 mg/dL (0.2-1.0); Blood Urea Nitrogen 10 mg/dL (9-23); Calcium 8.8 mg/dL (8.7-10.4); Carbon Dioxide 24 mmol/L (20-31); Chloride 105 mmol/L (98-107); Potassium 4.2 mmol/L (3.5-5.1); Sodium 140 mmol/L (136-145); Total Protein 6.6 g/dL (5.7-8.2)
[2025-02-20 08:01] LABS: Glucose 148 mg/dL (74-106)
[2025-02-20] MEDS ORDERED: CLOPIDOGREL BISULFATE 75 MG TAB PO SCH (10:00)
[2025-02-20] MEDS ORDERED: GABA-339 PO (14:26)
[2025-02-20] MEDS: Glucerna Carbsteady SHAKE Vanilla 8oz PO SCH (18:00)
[2025-02-20] MEDS: TAMSULOSIN HYDROCHLORIDE 0.4 MG CAP PO SCH (18:33)
--- NOTE | 2025-02-20 22:42 | DVHPN2 ---
Subjective The patient is seen and examined at bedside. Complain of severe chest pain. He said tramadol 50 mg did not help him. Reviewed: Care Plan, H&P, Medications, Previous Orders, Radiology Changes from previous H/P or p: No Changes Cardiovascular: Chest Pain Gastrointestinal: Nausea Objective Vitals Vital Signs Date Time Temp Pulse Resp B/P (MAP) Pulse Ox O2 Delivery O2 Flow Rate FiO2 02/20/25 20:00 60 02/20/25 20:00 18 94 Room Air* 0 21 02/20/25 19:11 105/60 02/20/25 16:40 98.3 98.3 Intake/Output Intake and Output 02/20/25 07:00 Intake Total 700 ml Output Total 900 ml Balance -200 ml Intake Oral 700 ml Output Urine Total 900 ml # Voids 8 # Bowel Movements 1 General Appearance: Alert, Oriented X3, Cooperative, mild distress HEENT: Atraumatic, PERRLA, EOMI, Mucous membr. moist/pink Neck: Supple Lungs: Clear to auscultation, Normal air movement Cardiovascular: Regular rate, Normal S1, Normal S2, No murmurs, Gallops, Rubs Abdomen: Normal bowel sounds, Soft, No tenderness Neuro: Cranial nerves 3-12 NL Psych/Mental Status: Mental status NL Medications Current Medications Medications Dose Ordered Sig/Sunny Route Start Time Stop Time Status Last Admin Dose Admin Sodium Chloride 10 ml Q8HR IV 02/18/25 22:00 02/20/25 15:05 10 ML Nitroglycerin 0.4 mg Q5MINP PRN SL 02/18/25 23:45 02/20/25 13:04 0.4 MG Morphine Sulfate 2 mg Q30M PRN IV 02/18/25 23:45 Pantoprazole Sodium 40 mg DAILY PO 02/19/25 10:00 02/20/25 08:58 40 MG Aspirin 162 mg DAILY PO 02/20/25 10:00 Cancel Clopidogrel Bisulfate 75 mg DAILY PO 02/20/25 10:00 Cancel Hydromorphone HCl 0.5 mg Q4HPRN PRN IV 02/19/25 00:00 02/20/25 18:41 0.5 MG Aspirin 81 mg DAILY PO 02/19/25 10:00 02/20/25 08:58 81 MG Clopidogrel Bisulfate 75 mg DAILY PO 02/19/25 10:00 02/20/25 08:58 75 MG Diagnostic Test (Pha) 1 strip Q6HR 02/19/25 06:00 02/20/25 17:00 1 STRIP Insulin Human Regular Q6HR SC 02/19/25 06:00 02/20/25 17:04 6 UNITS Dextrose 50 ml UD PRN IV 02/19/25 03:45 Tramadol HCl 100 mg Q8HP PRN PO 02/20/25 14:30 02/20/25 17:09 100 MG Gabapentin 600 mg BID PO 02/20/25 22:00 Tamsulosin HCl 0.4 mg QPM PO 02/20/25 18:00 02/20/25 18:33 0.4 MG Enteral Nutritional Formula 240 ml BIDWM PO 02/20/25 18:00 02/20/25 18:00 240 ML Laboratory Results Laboratory Tests 02/18/25 20:50 02/20/25 06:51 Chemistry Test 02/20/25 06:51 Albumin 3.8 g/dL (3.2-4.8) Calcium Level 8.8 mg/dL (8.7-10.4) Total Protein 6.6 g/dL (5.7-8.2) LFT Test 02/20/25 06:51 Alanine Aminotransferase (ALT) 10 U/L (7-40) Alkaline Phosphatase 104 U/L (46-116) Aspartate Amino Transferase (AST) 17 U/L (13-40) Total Bilirubin 0.5 mg/dL (0.2-1.0) Labs and/or images reviewed: Labs reviewed by me Assessment/Plan Assessment/Plan Acute ST-elevation IA status post emergency cardiac catheterization History of coronary artery disease with multiple stent and CABG Diabetes type 2 Hypertension Hyperlipidemia Peripheral vascular disease Osteoarthritis Protein calorie malnutrition Continuing current management. Continuing with Plavix. Continuing with hypertensive medication. Appreciate venture capitalist's input. Continuing with sliding scale insulin. Continuing with statin. Continuing with beta linsey. Increase tramadol up to 100 mg PO TID prn. Appreciate Cardiology input. Wound care consulted Restart Flomax and gabapentin. Ensure one came per meal This medical document was created using an electronic medical record system with M*M [employer] direct computerized dictation system. Although this document has been carefully reviewed, there may still be some phonetic and typographical errors. These areas are purely typographical due to imperfections of the software programs, and do not reflect any compromise in the patient's medical care. Plan discussed with: Patient My Orders Orders - FRANCA ENCINAS MD Procedure Category Date Status Time * Wound Consult CONS 02/20/25 Transmitted Wound Culture W/ Gs CRISTIANO 02/20/25 In Process 03:04 * Dietary Consult CONS 02/20/25 Transmitted 13:22 Tramadol Hcl (Ultram) PHA 02/20/25 In Process 14:30 Gabapentin Capsule PHA 02/20/25 In Process (Neurontin Capsule) 22:00 Tamsulosin PHA 02/20/25 In Process Hydrochloride (Flomax) 18:00 Nutritional PHA 02/20/25 In Process Supplements (Glucerna 18:00 Consistent DIET 02/20/25 Transmitted Carb(Ccho)Diabetes Dinner Full Code DENIS 02/20/25 In Process 19:13 Code Status CODE 02/20/25 Transmitted 19:13 Date of Service: Feb 20, 2025 Billing Provider: FRANCA ENCINAS MD Common Visit Codes: [id number] INP/OBS CARE(HIGH) FRANCA ENCINAS MD Feb 20, 2025 22:42
[2025-02-20] MEDS: GABAPENTIN 300 MG CAP PO SCH (22:54)
[2025-02-21] VITALS (9 sets, daily range): BP systolic 107–127; BP diastolic 52–82; PULSE 60–82; RESP 16–19; TEMP 97.9–98.6; O2SAT 92–98
[2025-02-21 06:06] LABS: Hematocrit 38.4 % (41.0-53.0); Hemoglobin 13.4 g/dL (13.5-17.5); Mean Corpuscular Hemoglobin 31.4 pg (28.0-32.0); Mean Corpuscular Volume 90.0 fL (80.0-100.0); Nucleated Red Blood Cells % 0.1 %
[2025-02-21 06:11] LABS: Chloride 102 mmol/L (98-107); Potassium 4.2 mmol/L (3.5-5.1)
[2025-02-21 06:12] LABS: Anion Gap 9 (5-15); Carbon Dioxide 24 mmol/L (20-31)
[2025-02-21 06:13] LABS: Calcium 9.1 mg/dL (8.7-10.4)
[2025-02-21 06:14] LABS: Sodium 135 mmol/L (136-145)
[2025-02-21 06:18] LABS: BUN/Creatinine Ratio 14.3 (10.0-20.0); Blood Urea Nitrogen 11 mg/dL (9-23)
[2025-02-21 06:51] LABS: Glucose 172 mg/dL (74-106)
--- NOTE | 2025-02-21 10:59 | DVHPN2 ---
Subjective The patient is seen and examined at bedside. Still have some pain. but feel better. Reviewed: Care Plan, H&P, Medications, Previous Orders, Radiology Changes from previous H/P or p: No Changes Cardiovascular: Chest Pain Gastrointestinal: Nausea Objective Vitals Vital Signs Date Time Temp Pulse Resp B/P (MAP) Pulse Ox O2 Delivery O2 Flow Rate FiO2 02/21/25 08:53 98.6 66 17 127/69 (88) 96 98.6 02/20/25 20:00 Room Air* 0 21 Intake/Output Intake and Output 02/21/25 06:59 Intake Total 2000 ml Output Total 1800 ml Balance 200 ml Intake Oral 2000 ml Output Urine Total 1800 ml General Appearance: Alert, Oriented X3, Cooperative, mild distress HEENT: Atraumatic, PERRLA, EOMI, Mucous membr. moist/pink Neck: Supple Lungs: Clear to auscultation, Normal air movement Cardiovascular: Regular rate, Normal S1, Normal S2, No murmurs, Gallops, Rubs Abdomen: Normal bowel sounds, Soft, No tenderness Neuro: Cranial nerves 3-12 NL Psych/Mental Status: Mental status NL Medications Current Medications Medications Dose Ordered Sig/Sunny Route Start Time Stop Time Status Last Admin Dose Admin Sodium Chloride 10 ml Q8HR IV 02/18/25 22:00 02/21/25 06:06 10 ML Nitroglycerin 0.4 mg Q5MINP PRN SL 02/18/25 23:45 02/20/25 13:04 0.4 MG Morphine Sulfate 2 mg Q30M PRN IV 02/18/25 23:45 Pantoprazole Sodium 40 mg DAILY PO 02/19/25 10:00 02/21/25 09:12 40 MG Aspirin 162 mg DAILY PO 02/20/25 10:00 Cancel Clopidogrel Bisulfate 75 mg DAILY PO 02/20/25 10:00 Cancel Hydromorphone HCl 0.5 mg Q4HPRN PRN IV 02/19/25 00:00 02/21/25 06:55 0.5 MG Aspirin 81 mg DAILY PO 02/19/25 10:00 02/21/25 09:12 81 MG Clopidogrel Bisulfate 75 mg DAILY PO 02/19/25 10:00 02/21/25 09:12 75 MG Diagnostic Test (Pha) 1 strip Q6HR 02/19/25 06:00 02/21/25 06:07 1 STRIP Insulin Human Regular Q6HR SC 02/19/25 06:00 02/21/25 06:06 3 UNITS Dextrose 50 ml UD PRN IV 02/19/25 03:45 Tramadol HCl 100 mg Q8HP PRN PO 02/20/25 14:30 02/21/25 10:02 100 MG Gabapentin 600 mg BID PO 02/20/25 22:00 02/20/25 22:54 600 MG Tamsulosin HCl 0.4 mg QPM PO 02/20/25 18:00 02/20/25 18:33 0.4 MG Enteral Nutritional Formula 240 ml BIDWM PO 02/20/25 18:00 02/21/25 08:00 240 ML Laboratory Results Laboratory Tests 02/21/25 05:45 Chemistry Test 02/21/25 05:45 Calcium Level 9.1 mg/dL (8.7-10.4) Labs and/or images reviewed: Labs reviewed by me Assessment/Plan Assessment/Plan Acute ST-elevation CA status post emergency cardiac catheterization History of coronary artery disease with multiple stent and CABG Diabetes type 2 Hypertension Hyperlipidemia Peripheral vascular disease Osteoarthritis Protein calorie malnutrition Continuing current management. Continuing with Plavix. Continuing with hypertensive medication. Appreciate lofter's input. Continuing with sliding scale insulin. Continuing with statin. Continuing with beta linsey. Increase tramadol up to 100 mg PO TID prn. Appreciate Cardiology input. Wound care consulted Restart Flomax and gabapentin. Ensure one cane per meal 02/21: I plan to discharge this patient home today. I consult social services assistant resume his home health for IV antibiotic with vancomycin. Patient has an homehealth agency: [facility] prior to admission. The patient wanted to resume care with them. We will let case management know. In the process of setting everything up for the patient to go home with however now he complain of severe chest pain. The patient's blood pressure go up to 180 over 100. Heart rate spit up to 126. The patient was given two nitroglycerin 0.4 mg sublingual in the chest pain improved. We will call [facility] [employer] to see we will to do anything urgent. Per lofter's we will keep the patient overnight for observation. Discharge planning for a.m. This medical document was created using an electronic medical record system with M*M [employer]rency direct computerized dictation system. Although this document has been carefully reviewed, there may still be some phonetic and typographical errors. These areas are purely typographical due to imperfections of the software programs, and do not reflect any compromise in the patient's medical care. Plan discussed with: Patient, Other (RN) My Orders Orders - FRANCA ENCINAS MD Procedure Category Date Status Time * Dietary Consult CONS 02/20/25 Transmitted 13:22 Tramadol Hcl (Ultram) PHA 02/20/25 In Process 14:30 Gabapentin Capsule PHA 02/20/25 In Process (Neurontin Capsule) 22:00 Tamsulosin PHA 02/20/25 In Process Hydrochloride (Flomax) 18:00 Nutritional PHA 02/20/25 In Process Supplements (Glucerna 18:00 Consistent DIET 02/20/25 Transmitted Carb(Ccho)Diabetes Dinner Full Code DENIS 02/20/25 In Process 19:13 Code Status CODE 02/20/25 Transmitted 19:13 Complete Blood Count LAB 02/22/25 Verified 05:00 Complete Blood Count LAB 02/23/25 Verified 05:00 Complete Blood Count LAB 02/24/25 Verified 05:00 Complete Blood Count LAB 02/25/25 Verified 05:00 Basic Metabolic Panel LAB 02/22/25 Verified 05:00 Basic Metabolic Panel LAB 02/23/25 Verified 05:00 Basic Metabolic Panel LAB 02/24/25 Verified 05:00 Basic Metabolic Panel LAB 02/25/25 Verified 05:00 Date of Service: Feb 21, 2025 Billing Provider: FRANCA ENCINAS MD Common Visit Codes: [id number] INP/OBS CARE(HIGH) FRANCA ENCINAS MD Feb 21, 2025 10:59
[2025-02-21] MEDS ORDERED: TRAM-626 PO (11:59)
[2025-02-21] MEDS ORDERED: CLOP75TA70 PO (12:13)
--- NOTE | 2025-02-21 12:13 | DVHDS2 ---
Discharge Summary Date of Admission Feb 18, 2025 at 23:33 Date of Discharge: Feb 21, 2025 Labs/Diagnostic Data: Laboratory Results Test 02/21/25 05:45 02/21/25 05:42 02/20/25 06:51 02/18/25 20:50 White Blood Count 6.9 10^3/uL (4.4-10.8) Red Blood Count 4.26 10^6/uL (4.5-5.90) Hemoglobin 13.4 g/dL (13.5-17.5) Hematocrit 38.4 % (41.0-53.0) Mean Corpuscular Volume 90.0 fL (80.0-100.0) Mean Corpuscular Hemoglobin 31.4 pg (28.0-32.0) Mean Corpuscular Hemoglobin Concent 34.8 g/dL (32.0-36.0) Red Cell Distribution Width 14.1 % (11.8-14.3) Platelet Count 172 10^3/uL (140-450) Mean Platelet Volume 8.0 fL (6.9-10.8) Neutrophils (%) (Auto) 71.2 % (37.0-80.0) Lymphocytes (%) (Auto) 12.8 % (10.0-50.0) Monocytes (%) (Auto) 9.5 % (0.0-12.0) Eosinophils (%) (Auto) 5.4 % (0.0-7.0) Basophils (%) (Auto) 1.1 % (0.0-2.0) Neutrophils # (Auto) 4.9 10 ^3/uL (1.6-8.6) Lymphocytes # (Auto) 0.9 10 ^3/uL (0.4-5.4) Monocytes # (Auto) 0.7 10 ^3/uL (0-1.3) Eosinophils # (Auto) 0.4 10 ^3/uL (0-0.8) Basophils # (Auto) 0.1 10 ^3/uL (0-0.2) Nucleated Red Blood Cells 0.1 % Sodium Level 135 mmol/L (136-145) Potassium Level 4.2 mmol/L (3.5-5.1) Chloride Level 102 mmol/L (98-107) Carbon Dioxide Level 24 mmol/L (20-31) Anion Gap 9 (5-15) Blood Urea Nitrogen 11 mg/dL (9-23) Creatinine 0.77 mg/dL (0.700-1.30) Glomerular Filtration Rate Calc 101 mL/min (>90) BUN/Creatinine Ratio 14.3 (10.0-20.0) Serum Glucose 172 mg/dL (74-106) Calcium Level 9.1 mg/dL (8.7-10.4) POC Glucose 173 mg/dl (70-106) Total Bilirubin 0.5 mg/dL (0.2-1.0) Aspartate Amino Transferase (AST) 17 U/L (13-40) Alanine Aminotransferase (ALT) 10 U/L (7-40) Alkaline Phosphatase 104 U/L (46-116) Total Protein 6.6 g/dL (5.7-8.2) Albumin 3.8 g/dL (3.2-4.8) Magnesium Level 2.3 mg/dL (1.6-2.6) Troponin I High Sensitivity 3 ng/L (</=54) Other Laboratory Tests 02/21/25 05:45 Condition at Discharge: Fair Final Diagnosis/Problems List Severe CAD Discharge Disposition: Home with Health Services Discharge Instruct/Medications Diet: Cardiac 2g Na,low cholest Activity: No Restrictions, As Tolerated Follow Up/Referral: pcp 1-2 weeks Medications: Resume home meds Scheduled Acetaminophen (Acetaminophen), 650 MG PO Q8HR Apixaban Base (Eliquis), 5 MG PO BID Aspirin (Aspirin Low Dose), 81 MG PO DAILY Atorvastatin Calcium (Atorvastatin Calcium), 80 MG PO HS Baclofen (Baclofen), 5 MG PO Q8HR Clopidogrel Bisulfate (Clopidogrel), 75 MG PO DAILY Empagliflozin (Jardiance), 10 MG PO DAILY Gabapentin (Gabapentin), 600 MG PO BID, (Reported) Hydromorphone Hcl (Dilaudid), 1 TAB PO TID Indomethacin (Indocin), 25 MG PO TID Linezolid (Zyvox), 600 MG PO BID Metoprolol Succinate (Toprol Xl), 25 MG PO DAILY Oxycodone Hcl (OxyCONTIN ER Tablet), 1 TAB PO BID Pantoprazole Sodium Sesquihydr (Pantoprazole Sodium), 40 MG PO DAILY@0600 Tamsulosin Hcl (Flomax), 0.4 MG PO QPM Tramadol HCl (Tramadol HCl), 100 MG PO BID Valsartan (Valsartan), 40 MG PO DAILY Scheduled PRN Hydromorphone Hcl (Dilaudid), 1 TAB PO Q4HPRN PRN for PAIN SCALE 7 THRU 10, (Reported) Lactulose (Lactulose), 30 ML PO Q6HPRN PRN Lidocaine HCl (Aspercreme Lidocaine), 4 % EX BID PRN Oxycodone HCl (Oxycodone Hydrochloride), 10 MG PO TIDPRN PRN Tramadol Hcl (Tramadol Hcl), 200 MG PO BIDPRN PRN for PAIN SCALE 7 THRU 10, (Reported) Discharge Statement: "Patient was advised to return to the ER or call 911 if any headaches, dizziness, shortness of breath, chest pain, abdominal pain, bleeding, fevers, or worsening of medical condition. Patient was counseled about treatment plan, medications, possible side effects, patientverbalized understanding. All questions were answered to the best of my ability. This discharge took greater then 30 minutes in planning, reviewing documentation, counseling the patient, and discussing with other team members." ASSESSMENT ASSESSMENT Assessment Severe CAD FRANCA ENCINAS MD Feb 21, 2025 12:13
--- NOTE | 2025-02-21 14:03 | DVHPN2 ---
Consult Progress Note Date Seen: Feb 21, 2025 Subjective Review of Systems: CVS:Abnormal, RESPIRATORY:Normal, NEURO:Normal Other Systems: C/o epigastric pain radiating to back Objective vital signs Vital Sign Date Time Temp Pulse Resp B/P (MAP) Pulse Ox O2 Delivery O2 Flow Rate FiO2 02/21/25 13:30 82 107/52 (70) 02/21/25 13:00 98.0 18 96 98.0 02/21/25 08:00 Room Air* 0 21 Total Intake and Output 02/20/25 02/20/25 02/21/25 15:00 23:00 07:00 Intake Total 1120 ml 880 ml Output Total 500 ml 400 ml 900 ml Balance -500 ml 720 ml -20 ml medications Current Medications Medications Dose Ordered Sig/Sunny Route Start Time Stop Time Status Last Admin Dose Admin Sodium Chloride 10 ml Q8HR IV 02/18/25 22:00 02/21/25 12:39 10 ML Nitroglycerin 0.4 mg Q5MINP PRN SL 02/18/25 23:45 02/21/25 13:20 0.4 MG Morphine Sulfate 2 mg Q30M PRN IV 02/18/25 23:45 Pantoprazole Sodium 40 mg DAILY PO 02/19/25 10:00 02/21/25 09:12 40 MG Aspirin 162 mg DAILY PO 02/20/25 10:00 Cancel Clopidogrel Bisulfate 75 mg DAILY PO 02/20/25 10:00 Cancel Hydromorphone HCl 0.5 mg Q4HPRN PRN IV 02/19/25 00:00 02/21/25 12:21 0.5 MG Aspirin 81 mg DAILY PO 02/19/25 10:00 02/21/25 09:12 81 MG Clopidogrel Bisulfate 75 mg DAILY PO 02/19/25 10:00 02/21/25 09:12 75 MG Diagnostic Test (Pha) 1 strip Q6HR 02/19/25 06:00 02/21/25 12:21 1 STRIP Insulin Human Regular Q6HR SC 02/19/25 06:00 02/21/25 12:39 4 UNITS Dextrose 50 ml UD PRN IV 02/19/25 03:45 Tramadol HCl 100 mg Q8HP PRN PO 02/20/25 14:30 02/21/25 10:02 100 MG Gabapentin 600 mg BID PO 02/20/25 22:00 02/21/25 12:21 600 MG Tamsulosin HCl 0.4 mg QPM PO 02/20/25 18:00 02/20/25 18:33 0.4 MG Enteral Nutritional Formula 240 ml BIDWM PO 02/20/25 18:00 02/21/25 08:00 240 ML Examination: GENERAL:Abnormal (Chronically ill), LUNGS:Normal, CVS:Normal, NEURO:Normal laboratory and microbiology Laboratory Tests 02/21/25 05:45 Test 02/21/25 05:45 Range/Units Serum Glucose 172 H 74-106 mg/dL Problem List/Assessment/Plan Problem List/Assessment/Plan Acute ST-Elevation myocardial infarction Chronic compensated HFrEF, NYHA Class II Ischemic cardiomyopathy with LVEF of 25% Severe CAD s/p multiple PTCAs x 9 JOSEFINA s/p 4v-CABG (1999) s/p 3v-CABG (2013) s/p PTCA of the RCA (02/2025) Severe 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 with recent history of LifeVest History of PE with current Apixaban therapy History of polysubstance abuse including alcoholism Chronic pain syndrome with chronic opioid use Status post bilateral toes amputation Left heel wound Plan (Dr. Burton) Ventriculography revealed LVEF of 25% with global hypokinesis especially of the inferior basal wall of the left ventricle. Transthoracic echocardiogram reading pending at this time. Initiate GDMT for CHF as blood pressures can tolerate. Continue single-antiplatelet therapy with Plavix (uninterrupted for one year) and lipid lowering agent. Reinitiate home Eliquis therapy. The patient with current complaints of chest pain underwent a 12 lead electrocardiogram revealing post lateral wall myocardial infarction changes. He will be initiated on Ranexa therapy. Monitor overnight prior to discharge home. AICD generator at [facility]. Not a candidate for generator exchange at this time given recent diagnosis of subacute endocarditis and open left foot wound with long-term IV ABX therapy. Patient is to follow-up as outpatient with a primary systems accountant and trench digger helper. Denies following up with any specialists. Strongly counseled on medical compliance and medical management as outpatient. Monitor ECG changes closely and notify accordingly. Thank you for allowing us to participate in this patient's care. Please call if you have any questions or concerns. This medical document was created using an electronic medical record system with voice recognition software and computerized dictation system. Although this document has been carefully reviewed, there might still be some phonetic and typographical errors. Occasional wrong-word or ``sound-alike substitutions may have occurred due to the inherent limitations of voice recognition software. These areas are purely typographical due to imperfections of the software programs and do not reflect any compromise in the patient's medical care. Please read the chart carefully and recognize, using context, where these substitutions have occurred. Plan discussed with: Patient, Other Dietary Evaluation Review Comments: 1) Initiate Glucerna tid 2) Encourage optimal PO intake 3) Consider soluble fiber supplement to promote glycemic and lipid control 4) Collect HbA1c and lipid panel 5) Follow-up with cardiology and podiatry 6) Continue to monitor I&O, labs, and skin integrity Expected Outcomes/Goals: 1) appetite and labs to improve 2) wounds to improve 3) f/u in 3-5 days Date of Service: Feb 21, 2025 Billing Provider: URSULA BECKER Cardiology Common Codes: [id number] HOSP CARE(High URSULA BECKER Feb 21, 2025 14:03
[2025-02-21] MEDS: RANOLAZINE ER 500 MG TAB PO ONE ×2 (15:13→15:15)
[2025-02-21] MEDS: RANOLAZINE ER 500 MG TAB PO SCH (21:14)
[2025-02-21] MEDS: APIXABAN 5 MG TAB PO SCH (21:14)
[2025-02-21] MEDS: SACUBITRIL-VALSARTAN 24mg/26mg TAB PO SCH (21:15)
[2025-02-22] VITALS (7 sets, daily range): BP systolic 99–123; BP diastolic 52–71; PULSE 60–75; RESP 15–19; TEMP 97.7–98.2; O2SAT 92–95
[2025-02-22] MEDS: ATORVASTATIN 20 MG TAB PO SCH (00:35)
[2025-02-22 07:28] LABS: Chloride 102 mmol/L (98-107); Potassium 4.5 mmol/L (3.5-5.1); Sodium 136 mmol/L (136-145)
[2025-02-22 07:29] LABS: Anion Gap 9 (5-15); Calcium 8.9 mg/dL (8.7-10.4); Carbon Dioxide 25 mmol/L (20-31)
[2025-02-22 07:32] LABS: Hematocrit 37.3 % (41.0-53.0); Hemoglobin 12.9 g/dL (13.5-17.5); Mean Corpuscular Hemoglobin 31.0 pg (28.0-32.0); Mean Corpuscular Volume 89.4 fL (80.0-100.0); Nucleated Red Blood Cells % 0.0 %
[2025-02-22 07:34] LABS: BUN/Creatinine Ratio 21.7 (10.0-20.0); Blood Urea Nitrogen 18 mg/dL (9-23)
[2025-02-22 07:38] LABS: Glucose 191 mg/dL (74-106)
[2025-02-22] MEDS: GABAPENTIN 300 MG CAP ONE (07:38)
--- NOTE | 2025-02-22 09:40 | DVHPN2 ---
Consult Progress Note Date Seen: Feb 22, 2025 Subjective Review of Systems: CVS:Normal, RESPIRATORY:Normal, NEURO:Normal Other Systems: Denies any further cardiac symptoms Objective vital signs Vital Sign Date Time Temp Pulse Resp B/P (MAP) Pulse Ox O2 Delivery O2 Flow Rate FiO2 02/22/25 07:42 97.9 60 15 100/60 (73) 92 97.9 02/21/25 20:00 Room Air* 0 21 Total Intake and Output 02/21/25 02/21/25 02/22/25 15:00 23:00 07:00 Intake Total 500 ml 200 ml Output Total 1200 ml Balance 500 ml -1000 ml medications Current Medications Medications Dose Ordered Sig/Sunny Route Start Time Stop Time Status Last Admin Dose Admin Sodium Chloride 10 ml Q8HR IV 02/18/25 22:00 02/22/25 05:54 10 ML Nitroglycerin 0.4 mg Q5MINP PRN SL 02/18/25 23:45 02/21/25 13:20 0.4 MG Morphine Sulfate 2 mg Q30M PRN IV 02/18/25 23:45 Pantoprazole Sodium 40 mg DAILY PO 02/19/25 10:00 02/22/25 09:09 40 MG Aspirin 162 mg DAILY PO 02/20/25 10:00 Cancel Clopidogrel Bisulfate 75 mg DAILY PO 02/20/25 10:00 Cancel Hydromorphone HCl 0.5 mg Q4HPRN PRN IV 02/19/25 00:00 02/22/25 05:53 0.5 MG Clopidogrel Bisulfate 75 mg DAILY PO 02/19/25 10:00 02/22/25 09:11 75 MG Diagnostic Test (Pha) 1 strip Q6HR 02/19/25 06:00 02/22/25 05:54 1 STRIP Insulin Human Regular Q6HR SC 02/19/25 06:00 02/22/25 06:00 3 UNITS Dextrose 50 ml UD PRN IV 02/19/25 03:45 Tramadol HCl 100 mg Q8HP PRN PO 02/20/25 14:30 02/21/25 21:14 100 MG Gabapentin 600 mg BID PO 02/20/25 22:00 02/22/25 09:10 600 MG Tamsulosin HCl 0.4 mg QPM PO 02/20/25 18:00 02/21/25 18:10 0.4 MG Enteral Nutritional Formula 240 ml BIDWM PO 02/20/25 18:00 02/22/25 07:38 240 ML Ranolazine 500 mg BID PO 02/21/25 22:00 02/22/25 09:11 500 MG Atorvastatin Calcium 80 mg HS PO 02/21/25 22:00 02/22/25 00:35 80 MG Apixaban 5 mg BID PO 02/21/25 22:00 02/22/25 09:10 5 MG Empaglifozin 10 mg DAILY PO 02/22/25 10:00 Metoprolol Succinate 25 mg DAILY PO 02/22/25 10:00 Sacubitril/ Valsartan 0.5 tab BID PO 02/21/25 22:00 02/21/25 21:15 0.5 TAB Spironolactone 12.5 mg DAILY PO 02/22/25 10:00 Examination: LUNGS:Normal, CVS:Normal, NEURO:Normal laboratory and microbiology Laboratory Tests 02/22/25 05:27 Test 02/22/25 05:27 Range/Units Serum Glucose 191 H 74-106 mg/dL Problem List/Assessment/Plan Problem List/Assessment/Plan Acute ST-Elevation myocardial infarction Chronic compensated HFrEF, NYHA Class II Ischemic cardiomyopathy with LVEF of 25% Severe CAD s/p multiple PTCAs x 9 JOSEFINA s/p 4v-CABG (1999) s/p 3v-CABG (2013) s/p PTCA of the RCA (02/2025) 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 Burton) Ventriculography revealed LVEF of 25% with global hypokinesis especially of the inferior basal wall of the left ventricle. Continue GDMT for CHF as blood pressures can tolerate. Continue single-antiplatelet therapy with Plavix (uninterrupted for one year), Eliquis therapy, lipid lowering agent, and Ranexa. AICD generator at [facility]. Not a candidate for generator exchange at this time given recent diagnosis of subacute endocarditis and open left foot wound with long-term IV ABX therapy. Patient is to follow-up as outpatient with a primary textile slitting machine operator and field artillery targeting technician. Denies following up with any position classification specialist at this time. Strongly counseled on medical compliance and medical management as outpatient. There is no further cardiac work-up indicated at this time. Kindly call if in need to re-consult. Thank you for allowing us to participate in this patient's care. This medical document was created using an electronic medical record system with voice recognition software and computerized dictation system. Although this document has been carefully reviewed, there might still be some phonetic and typographical errors. Occasional wrong-word or ``sound-alike substitutions may have occurred due to the inherent limitations of voice recognition software. These areas are purely typographical due to imperfections of the software programs and do not reflect any compromise in the patient's medical care. Please read the chart carefully and recognize, using context, where these substitutions have occurred. Plan discussed with: Patient, Other Dietary Evaluation Review Comments: 1) Initiate Glucerna tid 2) Encourage optimal PO intake 3) Consider soluble fiber supplement to promote glycemic and lipid control 4) Collect HbA1c and lipid panel 5) Follow-up with cardiology and podiatry 6) Continue to monitor I&O, labs, and skin integrity Expected Outcomes/Goals: 1) appetite and labs to improve 2) wounds to improve 3) f/u in 3-5 days Date of Service: Feb 22, 2025 Billing Provider: URSULA BECKER Cardiology Common Codes: [id number] HOSP CARE(High URSULA BECKER Feb 22, 2025 09:40
--- NOTE | 2025-02-22 10:07 | DVHDS2 ---
Discharge Summary Date of Admission Feb 18, 2025 at 23:33 Date of Discharge: Feb 22, [address]-elevation CT status post emergency cardiac catheterization History of coronary artery disease with multiple stent and CABG Diabetes type 2 Hypertension Hyperlipidemia Peripheral vascular disease Osteoarthritis Protein calorie malnutrition Labs/Diagnostic Data: Laboratory Results Test 02/22/25 05:43 02/22/25 05:27 02/20/25 06:51 02/18/25 20:50 POC Glucose 194 mg/dl (70-106) White Blood Count 6.2 10^3/uL (4.4-10.8) Red Blood Count 4.17 10^6/uL (4.5-5.90) Hemoglobin 12.9 g/dL (13.5-17.5) Hematocrit 37.3 % (41.0-53.0) Mean Corpuscular Volume 89.4 fL (80.0-100.0) Mean Corpuscular Hemoglobin 31.0 pg (28.0-32.0) Mean Corpuscular Hemoglobin Concent 34.7 g/dL (32.0-36.0) Red Cell Distribution Width 14.3 % (11.8-14.3) Platelet Count 184 10^3/uL (140-450) Mean Platelet Volume 8.2 fL (6.9-10.8) Neutrophils (%) (Auto) 68.9 % (37.0-80.0) Lymphocytes (%) (Auto) 12.7 % (10.0-50.0) Monocytes (%) (Auto) 12.3 % (0.0-12.0) Eosinophils (%) (Auto) 5.1 % (0.0-7.0) Basophils (%) (Auto) 1.0 % (0.0-2.0) Neutrophils # (Auto) 4.3 10 ^3/uL (1.6-8.6) Lymphocytes # (Auto) 0.8 10 ^3/uL (0.4-5.4) Monocytes # (Auto) 0.8 10 ^3/uL (0-1.3) Eosinophils # (Auto) 0.3 10 ^3/uL (0-0.8) Basophils # (Auto) 0.1 10 ^3/uL (0-0.2) Nucleated Red Blood Cells 0.0 % Sodium Level 136 mmol/L (136-145) Potassium Level 4.5 mmol/L (3.5-5.1) Chloride Level 102 mmol/L (98-107) Carbon Dioxide Level 25 mmol/L (20-31) Anion Gap 9 (5-15) Blood Urea Nitrogen 18 mg/dL (9-23) Creatinine 0.83 mg/dL (0.700-1.30) Glomerular Filtration Rate Calc 98 mL/min (>90) BUN/Creatinine Ratio 21.7 (10.0-20.0) Serum Glucose 191 mg/dL (74-106) Calcium Level 8.9 mg/dL (8.7-10.4) Total Bilirubin 0.5 mg/dL (0.2-1.0) Aspartate Amino Transferase (AST) 17 U/L (13-40) Alanine Aminotransferase (ALT) 10 U/L (7-40) Alkaline Phosphatase 104 U/L (46-116) Total Protein 6.6 g/dL (5.7-8.2) Albumin 3.8 g/dL (3.2-4.8) Magnesium Level 2.3 mg/dL (1.6-2.6) Troponin I High Sensitivity 3 ng/L (</=54) Other Laboratory Tests 02/22/25 05:27 Brief Hx & Hospital Course: This is a 64 years old male with past medical history coronary artery disease come in because of severe severe chest pain about 2 hours prior to emergency department. The patient had chest pain with substernal radiating to the back. Patient had diaphoretic and dry heaving. According to the patient about week ago he started experience the same chest pain but mild and went away after couple hours. In the ER, EKG done. Showed acute CT inferior and lateral area with ST- elevation. Code STEMI was called. Product Mgmt Dev Manager took the patient to boot and shoe laborer and emergency angiogram was done. The cardiac catheterization showed: The RCA is 100% occluded proximally. The left main is a medium caliber vessel it has a an acute angle from the ostium. It has moderate plaquing without severe disease. The left anterior descending coronary artery is occluded proximally. The circumflex is a medium caliber vessel, there is moderate plaquing throughout its proximal mid and distal segment. The proximal circumflex has no critical lesions. The 1st obtuse marginal branches occluded. The saphenous venous graft with the marginal branch has 90% stenosis. The patient subsequently has successful intravascular ultrasound evaluation PTCA stenting and shockwave therapy/lithotripsy treatment to the origin of the saphenous graft to the marginal. . The patient doing better. Product Mgmt Dev Manager recommend Plavix and Eliquis. 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 Today of the antibiotic was set up and home health set up was done. The patient will be discharged home by [facility]. Activity as tolerated. Diet low-salt low-cholesterol diet. Physical exam: HEENT: Normocephalic atraumatic pupils equal react to light and accommodation. Extraocular muscles intact, conjunctiva pink, oropharynx moist, no thrush, no exudate. Lymphatic: No lymphadenopathy Cardiovascular exam: S1, S2 was heard. No murmurs, rubs, gallops Lung: Clear on auscultation bilaterally, no wheeze, rale, rhonchi. GI: Abdominal soft, nondistended, nontenderness, positive bowel sounds. Extremity: No crepitus, cyanosis, edema. Pedal pulses present bilateral. Full range of motion. Skin: Normal turgor, no rash. Psych: Alert, oriented x3. Neurology: No focal deficits, cranial nerve II to XII grossly intact. This medical document was created using an electronic medical record system with [employer] direct computerized dictation system. Although this document has been carefully reviewed, there may still be some phonetic and typographical errors. These areas are purely typographical due to imperfections of the software programs, and do not reflect any compromise in the patient's medical care. Condition at Discharge: Stable Final Diagnosis/Problems List Acute ST-elevation CT status post emergency cardiac catheterization History of coronary artery disease with multiple stent and CABG Diabetes type 2 Hypertension Hyperlipidemia Peripheral vascular disease Osteoarthritis Protein calorie malnutrition Discharge Disposition: Home Discharge Instruct/Medications Diet: Cardiac 2g Na,low cholest Activity: No Restrictions, As Tolerated Follow Up/Referral: pcp 1-2 weeks Medications: Resume home meds Scheduled Acetaminophen (Acetaminophen), 650 MG PO Q8HR Apixaban Base (Eliquis), 5 MG PO BID Atorvastatin Calcium (Atorvastatin Calcium), 80 MG PO HS Baclofen (Baclofen), 5 MG PO Q8HR Clopidogrel Bisulfate (Plavix), 1 TAB PO DAILY Empagliflozin (Jardiance), 10 MG PO DAILY Gabapentin (Gabapentin), 600 MG PO BID, (Reported) Hydromorphone Hcl (Dilaudid), 1 TAB PO TID Indomethacin (Indocin), 25 MG PO TID Linezolid (Zyvox), 600 MG PO BID Metoprolol Succinate (Toprol Xl), 25 MG PO DAILY Oxycodone Hcl (OxyCONTIN ER Tablet), 1 TAB PO BID Pantoprazole Sodium Sesquihydr (Pantoprazole Sodium), 40 MG PO DAILY@0600 Tamsulosin Hcl (Flomax), 0.4 MG PO QPM Valsartan (Valsartan), 40 MG PO DAILY Scheduled PRN Hydromorphone Hcl (Dilaudid), 1 TAB PO Q4HPRN PRN for PAIN SCALE 7 THRU 10, (Reported) Lactulose (Lactulose), 30 ML PO Q6HPRN PRN Lidocaine HCl (Aspercreme Lidocaine), 4 % EX BID PRN Oxycodone HCl (Oxycodone Hydrochloride), 10 MG PO TIDPRN PRN Tramadol Hcl (Tramadol Hcl), 200 MG PO BIDPRN PRN for PAIN SCALE 7 THRU 10, (Reported) Tramadol Hcl (Tramadol Hcl), 100 MG PO BIDPRN PRN Discontinued Medications Aspirin (Aspirin Low Dose), 81 MG PO DAILY Tramadol HCl (Tramadol HCl), 100 MG PO BID Discontinued Reason: Prescription changed Discharge Statement: "Patient was advised to return to the ER or call 911 if any headaches, dizziness, shortness of breath, chest pain, abdominal pain, bleeding, fevers, or worsening of medical condition. Patient was counseled about treatment plan, medications, possible side effects, patientverbalized understanding. All questions were answered to the best of my ability. This discharge took greater then 30 minutes in planning, reviewing documentation, counseling the patient, and discussing with other team members." ASSESSMENT ASSESSMENT Assessment Severe CAD Date of Service: Feb 22, 2025 Billing Provider: FRANCA ENCINAS MD Common Visit Codes: [id number] DISCH DAY >30min FRANCA ENCINAS MD Feb 22, 2025 10:07
[2025-02-22] MEDS ORDERED: CLOP75TA28 PO (10:10)
[2025-02-22] MEDS ORDERED: TRAM50TA2 PO (10:10)
[2025-02-22] MEDS: METOPROLOL SUCCINATE XL 50 MG TAB PO SCH (10:22)
[2025-02-22] MEDS: EMPAGLIFLOZIN 10 MG TAB PO SCH (10:28)
[2025-02-22] MEDS: SPIRONOLACTONE 25 MG TAB PO SCH (10:28)
--- NOTE | 2025-02-22 11:24 | ECG ---
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
--- NOTE | 2025-02-22 13:33 | DVHSR ---
APPROVED REPORT EXAM: Two-dimensional and M-mode echocardiogram with Doppler and color Doppler. Blood Pressure: 122/52 mmHg INDICATION IL Surgery/Intervention Pacemaker: CABG: RISK FACTORS Height: 6'1", Weight: 175 DIMENSIONS LVDd (3.8-5.7cm)LA (2D)4.0 (1.9-4.0cm)Aortic Root (2.0-3.7cm) EF (%) 40.0 (55-70%)Rt. Atrium4.0 (1.9-4.0cm)Asc. Aorta cm Mitral Valve MitralMitral Stenosis E wave0.72m/sMV Mean GR.mmHg A wave0.72m/sMV Peak GR.mmHg E/A ratio1.02D MVAcm2 DECEL [id number] 1/2 Timems Aortic Valve Aortic ValveAortic Stenosis V10.91m/Smooth Mean GR.4mmHg V21.47m/Smooth Peak GR.9mmHg LVOT Diameter2.0 (1.8-2.4cm)Doppler AVA1.94cm2 Other Information Quality : Technically LimitedRhythm : Technically limited study due to body habitus and CABG. Conclusion Technically difficult study. Off axis views. Left atrial enlargement. Concentric LVH. Valves are normal. EF of 35-40% with global hypokinesis. Normal RV function. Mild aortic insufficiency. Mild TR. No pericardial effusion masses or vegetations.
== END 2025-02-22 17:05 | disposition home health service (06) | DRG 174 ==
LOC: EDBD 20:50 → ER 20:52 → OVERFLOW 23:33 → EAST 02-19 01:45 → TELE-EAST 02-19 04:57
PROVIDERS: ADMIT Internal Medicine; ATTEND Internal Medicine
PROC: 027034Z Dilation of Coronary Artery, One Artery with Drug-eluting Intraluminal Device, Percutaneous Approach (ICD-10-PCS; principal; 2025-02-18)
PROC: 4A023N7 Measurement of Cardiac Sampling and Pressure, Left Heart, Percutaneous Approach (ICD-10-PCS; 2025-02-18)
PROC: B211YZZ Fluoroscopy of Multiple Coronary Arteries using Other Contrast (ICD-10-PCS; 2025-02-18)
PROC: B215YZZ Fluoroscopy of Left Heart using Other Contrast (ICD-10-PCS; 2025-02-18)
PROC: B240ZZ3 Ultrasonography of Single Coronary Artery, Intravascular (ICD-10-PCS; 2025-02-18)
PROC: 02F03ZZ Fragmentation in Coronary Artery, One Artery, Percutaneous Approach (ICD-10-PCS; 2025-02-18)
DX: I21.19 ST elevation (STEMI) myocardial infarction involving other coronary artery of inferior wall (principal); I11.0 Hypertensive heart disease with heart failure; I50.22 Chronic systolic (congestive) heart failure; E11.51 Type 2 diabetes mellitus with diabetic peripheral angiopathy without gangrene; E78.5 Hyperlipidemia, unspecified; I25.10 Atherosclerotic heart disease of native coronary artery without angina pectoris; I25.5 Ischemic cardiomyopathy; G89.4 Chronic pain syndrome; Z95.1 Presence of aortocoronary bypass graft; Z88.5 Allergy status to narcotic agent; Z95.5 Presence of coronary angioplasty implant and graft; Z86.711 Personal history of pulmonary embolism; Z95.810 Presence of automatic (implantable) cardiac defibrillator; Z83.3 Family history of diabetes mellitus; Z68.23 Body mass index [BMI] 23.0-23.9, adult
CPT/HCPCS: 36415; 71045; 80048; 80053; 82962; 83735; 84484; 85025; 86850; 86900; 86901; 87077; 87081; 87186; 87205; 92941; 92972; 92978; 93005; 93306; 93458; 93971; 96365; 96375; 99152; 99291; G0378; J1815; J2250; Q9967

== ENCOUNTER 2025-03-20 15:46 | Inpatient (IN) | payer MEDICAID ==
[~2025-03-20] VITALS: Ht 175.3 cm; Wt 74.6 kg
[~2025-03-20 15:46] MED LIST changes: -ASPI-325 PO; +CLOP75TA28 PO; +GABA-339 PO; -TRAM-626 PO
[2025-03-20] MEDS: HYDROmorphone HCL 2 MG/ML VL/or syr IV ONE (16:45)
[2025-03-20] MEDS: SODIUM CHLORIDE 0.9% 500 ML IVB ONE (16:45)
--- NOTE | 2025-03-20 16:45 | ED.PDOC ---
General HPI Comments This is a 64 year-old male who presents to the ED via EMS with chief complaint of R flank pain as of 4-5 days ago. Patient reports being told X2 days ago that his R kidney is failing. Patient reports pain as a /10, with associated symptoms of N/V. Patient has a PMHx of DM, SC, Hyperlipidemia, HTN, and COPD, as well as, a SHx of Hernia Repair, x10 Coronary Stents in place, and Bilateral Foot Amputation. Patient has a catheter in place and is taking Vancomycin daily, as prescribed. Patient has no further complaints at this time and otherwise denies further associated symptoms of chest pain, dysuria, hematuria, hematemesis, diarrhea, or weakness. Chief Complaint: Flank Pain Time Seen by MD: 16:34 Primary Care Provider: ? Reviewed notes: Medications, Allergies Allergies: Coded Allergies: Hydrocodone (Verified Allergy, Severe, LEG SWELLING, 04/25/24) Ketorolac Tromethamine (Verified Allergy, Unknown, 04/03/24) Home Meds Active Scripts Tramadol Hcl (Tramadol Hcl) 50 Mg Tab, 100 MG PO BIDPRN PRN, #28 TAB Prov:FRANCA ENCINAS MD 02/22/25 Clopidogrel Bisulfate (Plavix) 75 Mg Tab, 1 TAB PO DAILY, #90 TAB 1 Refill Prov:FRANCA ENCINAS MD 02/22/25 Hydromorphone Hcl (Dilaudid) 2 Mg Tab, 1 TAB PO TID for 7 Days, #21 TAB Prov:XOCHITL GRAY NP 01/12/25 Valsartan (Valsartan) 40 Mg Tab, 40 MG PO DAILY for 30 Days, #30 TAB Prov:XOCHITL GRAY NP 01/12/25 Lidocaine HCl (Aspercreme Lidocaine) 4 % Liq, 4 % EX BID PRN for 30 Days, #120 LIQ Prov:DURGA DAVIS 08/02/24 Linezolid (Zyvox) 600 Mg Tab, 600 MG PO BID for 60 Days, #120 TAB Prov:DURGA DAVIS 08/02/24 Pantoprazole Sodium Sesquihydr (Pantoprazole Sodium) 40 Mg Tab, 40 MG PO DAILY@0600 for 30 Days, #30 TAB Prov:DURGA DAVIS 08/02/24 Metoprolol Succinate (Toprol Xl) 50 Mg Tab, 25 MG PO DAILY for 30 Days, #15 TAB [facility] 08/02/24 Lactulose (Lactulose) 10 Gm/15 Ml Jeannie, 30 ML PO Q6HPRN PRN for 30 Days, #60 ML [facility] 08/02/24 Indomethacin (Indocin) 25 Mg Cp, 25 MG PO TID for 15 Days, #60 CAP [facility] 08/02/24 Empagliflozin (Jardiance) 10 Mg Tab, 10 MG PO DAILY for 30 Days, #30 TAB Prov:[facility] 08/02/24 Atorvastatin Calcium (ATORVASTATIN CALCIUM) 20 Mg Tab, 80 MG PO HS for 30 Days, #120 TAB [facility] 08/02/24 Apixaban Base (ELIQUIS) 5 Mg Tab, 5 MG PO BID for 30 Days, #60 TAB [facility] 08/02/24 Acetaminophen (Acetaminophen) 325 Mg Tab, 650 MG PO Q8HR for 10 Days, #60 TAB [facility] 08/02/24 Oxycodone HCl (Oxycodone Hydrochloride) 10 Mg Tab, 10 MG PO TIDPRN PRN for 7 Days, #21 TAB Prov:TAMMY ANNE MD 04/07/24 Oxycodone Hcl (OxyCONTIN ER Tablet) 10 Mg Tb, 1 TAB PO BID for 7 Days, #14 TAB 0 Refills Prov:TAMMY ANNE MD 04/07/24 Tamsulosin Hcl (Flomax) 0.4 Mg Cap, 0.4 MG PO QPM for 30 Days, #30 CAP 0 Refills Prov:TAMMY ANNE MD 04/07/24 Baclofen (Baclofen) 10 Mg Tab, 5 MG PO Q8HR for 30 Days, #45 TAB 0 Refills Prov:TAMMY ANNE MD 04/07/24 Reported Medications Gabapentin (Gabapentin) 600 Mg Tab, 600 MG PO BID for 30 Days, MG 02/20/25 Tramadol Hcl (Tramadol Hcl) 50 Mg Tab, 200 MG PO BIDPRN PRN for PAIN SCALE 7 THRU 10, MG 01/01/25 Hydromorphone Hcl (Dilaudid) 2 Mg Tab, 1 TAB PO Q4HPRN PRN for PAIN SCALE 7 THRU 10, #120 TAB 01/01/25 Information Source: Patient Mode of Arrival: EMS Severity: Moderate Timing: Days Duration: Since onset Onset: Spontaneous Location: (R) Flank associated signs and symptoms: Nausea, Vomiting, Flank Pain Past Medical History PAST MEDICAL HISTORY: CAD, CHF, COPD, DM, High Lipids, SC, PE Surgical History: CABG, Hernia Repair, PTCA, Tonsillectomy Surgical History (Other): Bilateral Foot Amputation, Open Heart Surgery, x10 Stents Family History Family History: Reviewed,noncontributory to illness Social History Smoker: Non-Smoker Alcohol: Occasionally Drugs: Denies Drug Use Lives In: Home Constitutional: denies: chills, diaphoresis, fatigue, fever, malaise, sweats, weakness, others EENTM: denies: blurred vision, double vision, ear bleeding, ear discharge, ear drainage, ear pain, ear ringing, eye pain, eye redness, hearing loss, mouth pain, mouth swelling, nasal discharge, nose bleeding, nose congestion, nose pain, photophobia, tearing, throat pain, throat swelling, voice changes, others Respiratory: denies: cough, hemoptysis, orthopnea, SOB at rest, shortness of breath, SOB with excertion, stridor, wheezing, others Cardiovascular: denies: chest pain, dizzy spells, diaphoresis, Dyspnea on exertion, edema, irregular heart beat, left arm pain, lightheadedness, palpitations, PND, syncope, others Gastrointestinal: denies: abdomen distended, abdominal pain, blood streaked bowels, constipated, diarrhea, dysphagia, difficulty swallowing, hematemesis, melena, nausea, poor appetite, poor fluid intake, rectal bleeding, rectal pain, vomiting, others Genitourinary: reports: flank pain; denies: burning, dysuria, frequency, hematuria, incontinence, penile discharge, penile sore, pain, testicle pain, testicle swelling, urgency, others Neurological: denies: dizziness, fainting, headache, left sided numbness, left sided weakness, numbness, paresthesia, pre-existing deficit, right sided numbness, right sided weakness, seizure, speech problems, tingling, tremors, weakness, others Musculoskeletal: denies: back pain, gout, joint pain, joint swelling, muscle pain, muscle stiffness, neck pain, others Integumetry: denies: bruises, change in color, change in hair/nails, dryness, laceration, lesions, lumps, rash, wounds, others Allergic/Immunocompromised: denies: Difficulty Healing, Frequent Infections, Hives, Itching, others Hematologic/Lymphatic: denies: anemia, blood clots, easy bleeding, easy bruising, swollen glands, others Endocrine: denies: excessive hunger, excessive sweating, excessive thirst, excessive urination, flushing, intolerance to cold, intolerance to heat, unexplained weight gain, unexplained weight loss, others Psychiatric: denies: anxiety, bipolar disorder, depression, hopeless, panic disorder, schizophrenia, sleepless, suicidal, others All Other Systems: Reviewed and Negative Physical Exam General Appearance: Moderate Distress HEENT: Normal ENT Inspection, Pharynx Normal, TMs Normal Neck: Full Range of Motion, Non-Tender, Normal, Normal Inspection Respiratory: Chest Non-Tender, Lungs Clear, No Accessory Muscle Use, No Respiratory Distress, Normal Breath Sounds Cardiovascular: No Edema, No JVD, No Murmur, No Gallop, Normal Peripheral Pulses, Regular Rate/Rhythm, Other (Catheter to the right chest) Breast Exam: Deferred Gastrointestinal: No Organomegaly, Non Tender, No Pulsatile Mass, Normal Bowel Sounds, Soft Genitalia: Deferred Pelvic: Deferred Rectal: Deferred Extremities: No calf tenderness, Normal capillary refill, No pedal edema, Other (The patient has bilateral feet amputations with a dressing to the left lower extremity) Musculoskeletal : Apperance: Normal 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 Was a procedure done?: No Differential Diagnosis Kidney stone (Female): N/A Urinary Problem (Male): Renal Failure, Urolithiasis, UTI X-Ray, Labs, Meds, VS Vital Signs Date Time Temp Pulse Resp B/P (MAP) Pulse Ox O2 Delivery O2 Flow Rate FiO2 03/20/25 18:06 59 17 137/72 03/20/25 17:57 98.1 59 17 137/72 (93) 94 98.1 03/20/25 16:45 59 17 137/72 03/20/25 15:58 98.3 84 16 147/83 98 98.3 Lab Test 03/20/25 17:20 Range/Units White Blood Count 10.7 4.4-10.8 10^3/uL Red Blood Count 4.81 4.5-5.90 10^6/uL Hemoglobin 14.6 13.5-17.5 g/dL Hematocrit 42.9 41.0-53.0 % Mean Corpuscular Volume 89.3 80.0-100.0 fL Mean Corpuscular Hemoglobin 30.3 28.0-32.0 pg Mean Corpuscular Hemoglobin Concent 34.0 32.0-36.0 g/dL Red Cell Distribution Width 14.1 11.8-14.3 % Platelet Count 207 140-450 10^3/uL Mean Platelet Volume 7.5 6.9-10.8 fL Neutrophils (%) (Auto) 82.6 H 37.0-80.0 % Lymphocytes (%) (Auto) 7.1 L 10.0-50.0 % Monocytes (%) (Auto) 7.0 0.0-12.0 % Eosinophils (%) (Auto) 2.7 0.0-7.0 % Basophils (%) (Auto) 0.6 0.0-2.0 % Neutrophils # (Auto) 8.8 H 1.6-8.6 10 ^3/uL Lymphocytes # (Auto) 0.8 0.4-5.4 10 ^3/uL Monocytes # (Auto) 0.8 0-1.3 10 ^3/uL Eosinophils # (Auto) 0.3 0-0.8 10 ^3/uL Basophils # (Auto) 0.1 0-0.2 10 ^3/uL Nucleated Red Blood Cells 0.1 % Sodium Level 136 136-145 mmol/L Potassium Level 4.6 3.5-5.1 mmol/L Chloride Level 97 L 98-107 mmol/L Carbon Dioxide Level 25 20-31 mmol/L Anion Gap 14 5-15 Blood Urea Nitrogen 39 H 9-23 mg/dL Creatinine 3.84 H 0.700-1.30 mg/dL Glomerular Filtration Rate Calc 17 >90 mL/min BUN/Creatinine Ratio 10.2 10.0-20.0 Serum Glucose 324 H 74-106 mg/dL Lactic Acid Level 2.1 *H 0.4-2.0 mmol/L Calcium Level 9.2 8.7-10.4 mg/dL Current Medications Medications (Trade) Dose Ordered Sig/Sunny Route Start Time Stop Time Status Last Admin Ondansetron HCl (Zofran) 4 mg ONCE ONCE IV 03/20/25 16:45 03/20/25 16:46 DC 03/20/25 17:45 Hydromorphone HCl (Dilaudid Injection) 0.5 mg ONCE ONCE IV 03/20/25 16:45 03/20/25 16:46 DC 03/20/25 16:45 Sodium Chloride 500 ml @ 500 mls/hr Q1H ONCE IVB 03/20/25 16:45 03/20/25 17:44 DC 03/20/25 16:45 IV Hep-Lock was established The patient was given Dilaudid 0.5 mg IV push for the flank pain The patient was given Zofran 4 mg IV push for the nausea The patient was given normal saline at a 500 cc bolus. The BUN is 39 the creatinine is 3.84 The lactic acid level is elevated at 2.1 The patient's CBC is within normal limits At this time, the patient will be signed out to Dr. Sahu The CAT scan of the abdomen and pelvis is pending The plan is to admit the patient for most likely an infection in the urine as well as the osteomyelitis Images Reviewed?: Images reviewed and evaluated by me Time of 1ST Reevaluation: 17:21 Reevaluation 1ST: Unchanged Patient Education/Counseling: Diagnosis, Treatment, Prognosis Family Education/Counseling: No Family Present SEPSIS Sepsis Screen Date sepsis recognized/suspect: Mar 20, 2025 Time Sepsis recognized/suspect: 1558 Recent Procedure: No On Antibiotic Therapy: Yes Respiratory Rate >20: No Heart Rate >90: No Temp<36 C (96.8 F) or >38.3 C: No SBP <90 or MAP <65 mmHG: No New Acute Mental Status Change: No Is the patient on CPAP, BIPAP,: No Physician Orders Urinalysis (03/20/25 16:34) Ct Ab Pel Wo Con-No Oral Or Iv (03/20/25 16:34) Heplock Iv (03/20/25 16:34) Blood Culture (03/20/25 16:34) [employer] (03/20/25 16:34) Blood Pressure (03/20/25 16:34) Ceftriaxone Ivpb Rocephin (03/20/25 18:45) Vital Signs Date Time Temp Pulse Resp B/P (MAP) Pulse Ox O2 Delivery O2 Flow Rate FiO2 03/20/25 18:06 59 17 137/72 03/20/25 17:57 98.1 59 17 137/72 (93) 94 98.1 03/20/25 16:45 59 17 137/72 03/20/25 15:58 98.3 84 16 147/83 98 98.3 Laboratory Tests Test 03/20/25 17:20 Lactic Acid Level 2.1 mmol/L (0.4-2.0) *H White Blood Count 10.7 10^3/uL (4.4-10.8) Medications Medications Dose Ordered Sig/Sunny Route Start Time Stop Time Status Last Admin Dose Admin Hydromorphone HCl 0.5 mg ONCE ONCE IV 03/20/25 16:45 03/20/25 16:46 DC 03/20/25 16:45 Ondansetron HCl 4 mg ONCE ONCE IV 03/20/25 16:45 03/20/25 16:46 DC 03/20/25 17:45 Sodium Chloride 500 ml @ 500 mls/hr Q1H ONCE IVB 03/20/25 16:45 03/20/25 17:44 DC 03/20/25 16:45 Departure 1 Departure Time of Disposition: 18:32 Impression: Primary Impression: Leg osteomyelitis, left Additional Impressions: Elevated lactic acid level Right flank pain Disposition: 09 ADMITTED INPATIENT Admit to: Med Surg Condition: Fair Critical Care Note Critical Care Time?: No Stability Stability form required: Yes Unstable for transfer: ED Physician Assesment (Clinical assesment) Heart Score Heart Score: Heart Score Response (Comments) Value History N/A 0 EKG N/A 0 Age N/A 0 Risk Factors N/A 0 Troponin N/A 0 Total 0 I personally scribed for OLU HEATH MD ([email or web address]) on 03/20/25 at 16:45. Electronically submitted by Maria R Schaefer ([facility]). I personally scribed for OLU HEATH MD ([email or web address]) on 03/20/25 at 16:57. Electronically submitted by Maria R Schaefer ([facility]). I personally scribed for OLU HEATH MD ([email or web address]) on 03/20/25 at 17:07. Electronically submitted by Maria R Schaefer ([facility]). OLU HEATH MD Mar 20, 2025 16:45
[2025-03-20 17:32] LABS: Hematocrit 42.9 % (41.0-53.0); Hemoglobin 14.6 g/dL (13.5-17.5); Mean Corpuscular Hemoglobin 30.3 pg (28.0-32.0); Mean Corpuscular Volume 89.3 fL (80.0-100.0); Nucleated Red Blood Cells % 0.1 %
[2025-03-20 17:39] LABS: Potassium 4.6 mmol/L (3.5-5.1)
[2025-03-20 17:40] LABS: Anion Gap 14 (5-15); Carbon Dioxide 25 mmol/L (20-31)
[2025-03-20 17:41] LABS: Calcium 9.2 mg/dL (8.7-10.4)
[2025-03-20] MEDS: ONDANSETRON HCL 4 MG/2 ML VIAL IV ONE (17:45)
[2025-03-20 17:46] LABS: BUN/Creatinine Ratio 10.2 (10.0-20.0)
[2025-03-20 17:50] LABS: Blood Urea Nitrogen 39 mg/dL (9-23); Chloride 97 mmol/L (98-107); Glucose 324 mg/dL (74-106); Sodium 136 mmol/L (136-145)
[2025-03-20 18:02] LABS: Lactic Acid w/Reflex 2.1 mmol/L (0.4-2.0)
--- NOTE | 2025-03-20 19:08 | DVH ---
Exam: CT CT AB PEL WO CON-NO ORAL OR IV History: right flank pain Comparison Study: CT CHEST WITHOUT CONTRAST on DOS: 01/01/25, CT CHEST WITH CONTRAST on DOS: 07/29/24, CT CT CHEST/AB/PL W CON- IV ONLY on DOS: 04/30/24 Technique: Multidetector spiral CT of the abdomen was performed from lung bases to pubic symphysis. I maging was performed without IV contrast. Axial, coronal and sagittal multiplanar reformats were obta ined from the axial data set by the technologist. Radiation Dose : 1. Abdomen/Pelvis: CTDIvol 16.1 mGy, DLP 784.11 mGy*cm. Findings: Evaluation of solid organs is limited due to lack of intravenous contrast use. Lung Bases: No acute or significant lung base finding. Normal heart size. No pleural or pericardial effusion. Liver: The liver is normal in size. No focal lesions. Gallbladder and Biliary Tree: Unremarkable Spleen: Unremarkable Pancreas: The pancreas is grossly normal in appearance. Adrenal Glands: Unremarkable Kidneys: Kidneys are grossly normal without calculi or hydronephrosis. Bladder: Grossly unremarkable for degree of distention. Bowel: [id number] sized hiatal hernia. Small bowel and colon are normal in caliber and distribu tion. The appendix is not visualized; however, no secondary findings of acute appendicitis identified . Ascites: Absent Lymphadenopathy: No mesenteric, retroperitoneal or periportal lymphadenopathy. Abdominal Wall and Mesentery: Unremarkable. Vasculature: The visualized abdominal aorta is normal in size and caliber. Evaluation of abdominal a nd pelvic vessels is limited due to lack of intravenous contrast. Pelvic Organs: Unremarkable Musculoskeletal: No aggressive focal bony lesions, acute fractures or dislocation. IMPRESSION: No acute abdominal or pelvic findings. Radiation optimization: All CT scans at this facility use at least one of these dose optimization mitchel hniques: automated exposure control mA and/or kV adjustment per patient size (includes targeted exam s where dose is matched to clinical indication) or iterative reconstruction.
--- NOTE | 2025-03-21 01:34 | DVHHPRES ---
History of Present Illness Resident Creating Document: PHILLIP RADER RESIDENT History of Present Illness This is a 64-year-old male with past medical history of type 2 diabetes mellitus, DFU, alcohol intoxication, endocarditis, hepatitis-C infection, CAD with multiple stents and 2 CABG surgeries, STEMI s/p PTCA, HFrEF with EF 35-40%, osteomyelitis, nonfunctional pacemaker in place(schedule removal in [place] next month), endocarditis, bilateral distal foot amputation, presented to the ER with chief complain of right flank pain. The pain started 4 days back, described as sharp, 9 on 10, radiating to chest, associated with nausea and vomiting. He had 5 episodes of vomiting, no blood seen. Patient also complained of dull chest pain, radiating to the back. Patient was taking vancomycin through PICC line for osteomyelitis infection, he received a call all 4 days back for abnormal kidney function, asking him to go to ER. Patient discontinued vancomycin at home and presented today with right flank pain and increased urinary frequency. 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 Lives in house with friends, full code, next to kin is Darek Matt (brother). Home medication: Eliquis, atorvastatin, baclofen, clopidogrel, Jardiance, gabapentin, lactulose, linezolid, metoprolol succinate, Flomax, valsartan 10, aspirin, albuterol, tramadol, Dilaudid, vancomycin-discontinued Allergic history: No known allergies Patient was examined at bedside today. Patient is ill-appearing and is admitted for further evaluation and management Review of Systems Review of Systems ROS: Constitutional: Denies weight loss, fever and chills. HEENT: Denies changes in vision and hearing. Respiratory: Shortness of breaths, chest pain Cardiovascular: Denies chest discomfort or palpitations GI: Constipation. Denies abdominal pain, nausea, vomiting and diarrhea. : Right flank pain, increased urinary frequency Musculoskeletal: Myalgias Skin: Denies rash and pruritus. Neurological: Denies dizziness, headache, vision or hearing problems Allergies: Coded Allergies: Hydrocodone (Verified Allergy, Severe, LEG SWELLING, 04/25/24) Ketorolac Tromethamine (Verified Allergy, Unknown, 04/03/24) Exam Vital Signs Vital Signs Date Time Temp Pulse Resp B/P (MAP) Pulse Ox O2 Delivery O2 Flow Rate FiO2 03/20/25 23:24 98.5 64 16 125/68 (87) 92 98.5 Exam General: Patient alert and oriented in person, place and time. Patient following commands. HEENT: Normocephalic, atraumatic, moist mucous membranes Respiratory/pulmonary: Clear lungs bilaterally, vesicular murmurs present in almost all lung collazo, no associated crackles or wheezes. Cardiovascular: Normal heart sounds S1 and S2 with no associated murmurs Abdomen: Right flank tenderness Extremities: Erythematous, tender ulcer on lower left leg. Bilateral distal fo ot amputation, atrophy of skin and hair follicles Peripheral Pulses: 3+ Radial (R). 3+ Radial (L). 3+ Dorsalis pedis (R). 3+ Dorsalis pedis(L) Skin: No rashes or pruritus, there is no sacral edema present at this time. Neurological: Intact cranial nerves with no focal neurologic deficits Labs/Xrays Labs Test 03/20/25 19:19 03/20/25 17:20 Range/Units Lactic Acid Level 2.5 *H 0.4-2.0 mmol/L White Blood Count 10.7 4.4-10.8 10^3/uL Red Blood Count 4.81 4.5-5.90 10^6/uL Hemoglobin 14.6 13.5-17.5 g/dL Hematocrit 42.9 41.0-53.0 % Mean Corpuscular Volume 89.3 80.0-100.0 fL Mean Corpuscular Hemoglobin 30.3 28.0-32.0 pg Mean Corpuscular Hemoglobin Concent 34.0 32.0-36.0 g/dL Red Cell Distribution Width 14.1 11.8-14.3 % Platelet Count 207 140-450 10^3/uL Mean Platelet Volume 7.5 6.9-10.8 fL Neutrophils (%) (Auto) 82.6 H 37.0-80.0 % Lymphocytes (%) (Auto) 7.1 L 10.0-50.0 % Monocytes (%) (Auto) 7.0 0.0-12.0 % Eosinophils (%) (Auto) 2.7 0.0-7.0 % Basophils (%) (Auto) 0.6 0.0-2.0 % Neutrophils # (Auto) 8.8 H 1.6-8.6 10 ^3/uL Lymphocytes # (Auto) 0.8 0.4-5.4 10 ^3/uL Monocytes # (Auto) 0.8 0-1.3 10 ^3/uL Eosinophils # (Auto) 0.3 0-0.8 10 ^3/uL Basophils # (Auto) 0.1 0-0.2 10 ^3/uL Nucleated Red Blood Cells 0.1 % Sodium Level 136 136-145 mmol/L Potassium Level 4.6 3.5-5.1 mmol/L Chloride Level 97 L 98-107 mmol/L Carbon Dioxide Level 25 20-31 mmol/L Anion Gap 14 5-15 Blood Urea Nitrogen 39 H 9-23 mg/dL Creatinine 3.84 H 0.700-1.30 mg/dL Glomerular Filtration Rate Calc 17 >90 mL/min BUN/Creatinine Ratio 10.2 10.0-20.0 Serum Glucose 324 H 74-106 mg/dL Calcium Level 9.2 8.7-10.4 mg/dL SEPSIS Sepsis Screen Date sepsis recognized/suspect: Mar 20, 2025 Time Sepsis recognized/suspect: 1558 Recent Procedure: No On Antibiotic Therapy: Yes Respiratory Rate >20: No Heart Rate >90: No Temp<36 C (96.8 F) or >38.3 C: No SBP <90 or MAP <65 mmHG: No New Acute Mental Status Change: No Is the patient on CPAP, BIPAP,: No Physician Orders Sodium Chloride 0.9% (03/21/25 01:00) Piperacillin-Tazob 3.375gm (Zosyn 3.375g (03/21/25 01:00) Vital Signs Date Time Temp Pulse Resp B/P (MAP) Pulse Ox O2 Delivery O2 Flow Rate FiO2 03/20/25 23:24 98.5 64 16 125/68 (87) 92 98.5 03/20/25 18:06 59 17 137/72 03/20/25 17:57 98.1 59 17 137/72 (93) 94 98.1 Laboratory Tests Test 03/20/25 17:20 03/20/25 19:19 Lactic Acid Level 2.1 mmol/L (0.4-2.0) *H 2.5 mmol/L (0.4-2.0) *H White Blood Count 10.7 10^3/uL (4.4-10.8) Medications Medications Dose Ordered Sig/Sunny Route Start Time Stop Time Status Last Admin Dose Admin Ceftriaxone Sodium 50 ml @ 100 mls/hr ONCE ONCE IV 03/20/25 18:45 03/20/25 19:14 DC 03/20/25 18:50 100 MLS/HR Hydromorphone HCl 0.5 mg ONCE ONCE IV 03/20/25 16:45 03/20/25 16:46 DC 03/20/25 16:45 0.5 MG Ondansetron HCl 4 mg ONCE ONCE IV 03/20/25 16:45 03/20/25 16:46 DC 03/20/25 17:45 4 MG Sodium Chloride 500 ml @ 500 mls/hr Q1H ONCE IVB 03/20/25 16:45 03/20/25 17:44 DC 03/20/25 16:45 500 MLS/HR Assessment/Plan Assessment/Plan Acute kidney injury stage, likely iatrogenic Lactic acidosis GFR-17, creatinine 3.84 (creatinine last month was 0.83) Discontinued vancomycin. Avoiding nephrotoxins like NSAIDS, contrast, renally dosed medications Low salt diet, maintain hydration Repeat BMP Discontinued vancomycin, started on ertapenem Nephrology consulted Type 2 diabetes mellitus Diabetic foot ulcer Osteomyelitis Status post bilateral distal foot amputation Sliding scale insulin A1c ordered Monitor blood glucose Discontinued vancomycin, started on ertapenem Consulted infectious disease Hypertension Continue metoprolol, holding off losartan PAD Greater exercise regimen, clinical monitoring History of hepatitis-C infection, s/p antibiotic treatment History of drug use Acute coronary syndrome STEMI s/p PTCA Chronic systolic heart failure without exacerbation/ HFrEF with EF 35-40% CAD with multiple stents and CABG Endocarditis Nonfunctional pacemaker On GDMT metoprolol succinate, Jardiance, valsartan, holding off Jardiance and valsartan DIET: Cardiac DVT PROPHYLAXIS: Heparin GI PROPHYLAXIS: Protonix CODE STATUS: Goals of care discussed with patient at bedside for more than 36 minutes. Full code DISPOSITION: Telemetry Patient's status and plan discussed with the patient. Case discussed with Dr. Patino Plan discussed with: Patient, Other (Nurses) Date of Service: Mar 21, 2025 Billing Provider: TAMMY ANNE MD Common Visit Codes: [id number] INP/OBS CARE (HIGH) Secondary Visit Codes: [id number] CARE PLAN 30 MINUTES PHILLIP RADER RESIDENT Mar 21, 2025 01:34 DURGA DAVIS RESIDENT Mar 21, 2025 10:00
[2025-03-21] MEDS ORDERED: MORPHINE SULFATE INJ 2 MG/ml SYRG IV PRN (02:15)
[2025-03-21] MEDS ORDERED: DEXTROSE (50%) 50ML SYRG IV PRN (02:15)
[2025-03-21] MEDS ORDERED: SODIUM CHLORIDE 0.9% 1,000 ML IV SCH (02:15)
[2025-03-21 02:47] LABS: Hematocrit 42.0 % (41.0-53.0); Hemoglobin 14.2 g/dL (13.5-17.5); Mean Corpuscular Hemoglobin 30.2 pg (28.0-32.0); Mean Corpuscular Volume 89.1 fL (80.0-100.0); Nucleated Red Blood Cells % 0.0 %
[2025-03-21 02:50] LABS: Potassium 4.5 mmol/L (3.5-5.1)
[2025-03-21 02:51] LABS: Anion Gap 15 (5-15); Calcium 9.5 mg/dL (8.7-10.4); Carbon Dioxide 25 mmol/L (20-31)
[2025-03-21 02:55] LABS: INR 1.03 (0.9-1.15); Partial Thromboplastin Time 27.4 SEC (24.5-34.5); Prothrombin Time 10.9 sec (9.3-11.8)
[2025-03-21 02:57] LABS: BUN/Creatinine Ratio 7.6 (10.0-20.0); Lipase 31 U/L (12-53); Magnesium 1.7 mg/dL (1.6-2.6)
[2025-03-21] MEDS ORDERED: HEPARIN SODIUM (PORCINE) 5000 UNITS/ML 1ML VIAL IV ONE (03:00)
[2025-03-21 03:06] LABS: Blood Urea Nitrogen 29 mg/dL (9-23); Chloride 96 mmol/L (98-107); Glucose 364 mg/dL (74-106); Sodium 136 mmol/L (136-145)
[2025-03-21 03:08] LABS: Lactic Acid w/Reflex 3.3 mmol/L (0.4-2.0)
[2025-03-21 03:25] LABS: Triglycerides 238 mg/dL (< 150)
[2025-03-21 03:27] LABS: Cholesterol 166 mg/dL (< 200)
[2025-03-21 03:31] LABS: HDL Cholesterol 29 mg/dL (40-59)
--- NOTE | 2025-03-21 04:50 | ECG ---
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
[2025-03-21 05:20] LABS: Chloride 99 mmol/L (98-107); Potassium 4.4 mmol/L (3.5-5.1)
[2025-03-21 05:21] LABS: Anion Gap 14 (5-15); Calcium 8.9 mg/dL (8.7-10.4); Carbon Dioxide 21 mmol/L (20-31); Sodium 134 mmol/L (136-145)
[2025-03-21 05:26] LABS: BUN/Creatinine Ratio 7.1 (10.0-20.0)
--- NOTE | 2025-03-21 05:27 | DVH ---
CHEST RADIOGRAPH Indication: Hx of PPM Technique: Single frontal view of the chest was obtained COMPARISON: XY CHEST PORTABLE on DOS: 02/18/25, CT CHEST WITHOUT CONTRAST on DOS: 01/01/25, XY CHEST PO RTABLE on DOS: 12/31/24, CT CHEST WITH CONTRAST on DOS: 07/29/24, TRANSESOPH ECHOCARDIOGRAM on DOS: 07/10 01/31 FINDINGS: Lines and Tubes: Right PermCath unchanged. Left anterior chest wall dual lead cardiac pacing device. Lungs: Clear Pleura: No effusion. No pneumothorax. Cardiomediastinal contours: Unremarkable status post median sternotomy. Bones: Unremarkable IMPRESSION: 1. No acute cardiopulmonary disease. 2. Right PermCath.
[2025-03-21 05:35] LABS: Blood Urea Nitrogen 27 mg/dL (9-23); Glucose 374 mg/dL (74-106)
[2025-03-21] MEDS: METOPROLOL SUCCINATE XL 50 MG TAB PO ONE (06:30)
[2025-03-21] MEDS: SODIUM CHLORIDE 0.9% 500 ML IV ONE (06:32)
[2025-03-21] MEDS: HYDROmorphone HCL 2 MG/ML VL/or syr IV ONE (06:43)
[2025-03-21] MEDS: CLOPIDOGREL BISULFATE 75 MG TAB PO ONE (06:43)
[2025-03-21] MEDS: PANTOPRAZOLE 40 MG/10 ML VIAL INJ IV ONE (06:43)
[2025-03-21] MEDS: ATORVASTATIN 20 MG TAB PO ONE (06:43)
[2025-03-21] MEDS: SODIUM CHLORIDE 0.9% 250 ML IV ONE (06:44)
[2025-03-21] MEDS: ACCU-CHEK COMFORT CURVE STRIP VI ONE (06:50)
[2025-03-21] MEDS: InsuLIN REG 1unit/0.01ml Soln (100units/ml) SC ONE (06:51)
[2025-03-21] MEDS: DEXTROSE (50%) 50ML SYRG IV ONE (06:52)
[2025-03-21] MEDS: ACCU-CHEK COMFORT CURVE STRIP VI SCH (07:03)
[2025-03-21] MEDS: InsuLIN REG 1unit/0.01ml Soln (100units/ml) SC SCH (07:05)
[2025-03-21] MEDS: SODIUM CHLORIDE 0.9% 1,000 ML IV SCH (08:00)
[2025-03-21] MEDS: PIPERACILLIN-TAZOB 3.375GM 100 ML IV ONE (10:00)
[2025-03-21 10:05] LABS: Urine Protein, UAD TRACE (Negative)
[2025-03-21 10:26] LABS: Amphetamine Screen, Urine Neg (NEGATIVE); Barbiturate Scree,Urine Neg (NEGATIVE); Benzodiazephine Screen, Urine Neg (NEGATIVE); Cannabinoid Screen, Urine Neg (NEGATIVE); Cocaine Screen, Urine Neg (NEGATIVE); Opiate Scree,Urine Neg (NEGATIVE); Phencyclidine Screen, Urine Neg (NEGATIVE)
[2025-03-21] MEDS: HEPARIN SODIUM (PORCINE) 5000 UNITS/ML 1ML VIAL SC SCH (10:26)
[2025-03-21 11:32] LABS: Protein, Urine 41.8 mg/dL (1-14)
[2025-03-21] MEDS: ERTAPENEM SOD INJ 0.5 GM in SODIUM CHL 0.9% 50 ML IV ONE (12:30)
--- NOTE | 2025-03-21 14:04 | DVH ---
CLINICAL HISTORY: MESERET TECHNIQUE: Complete ultrasound exam of the kidneys and bladder was performed. COMPARISON: US KIDNEY on DOS: 04/26/24 FINDINGS: The right kidney has normal echogenicity and measures 10.4 cm. There is no focal parenchymal abnormal ity or evidence for stone. There is no hydronephrosis. The left kidney has normal echogenicity and measures 10.4 cm. There is no focal parenchymal abnormal ity or evidence for stone. There is no hydronephrosis. The bladder is grossly unremarkable. IMPRESSION: NO SIGNIFICANT SONOGRAPHIC ABNORMALITY OF THE KIDNEYS.
[2025-03-21] MEDS ORDERED: HYDROcodone-ACET 5/325MG TAB PO PRN (14:30)
--- NOTE | 2025-03-21 14:55 | DVHPNRES ---
Progress Note Date Seen: Mar 21, 2025 Resident Creating Document: FUNMI ROUSE RESIDENT Has the PT tested + for MRSA If YES, has PT been informed?: No Medical Necessity Reason Pt with a Central, PICC or Fol: No Subjective Review of Systems 64-year-old male with past medical history of type 2 diabetes mellitus, DFU, alcohol intoxication, endocarditis, hepatitis-C infection, CAD with multiple stents and 2 CABG surgeries, STEMI s/p PTCA, HFrEF with EF 35-40%, osteomyelitis, nonfunctional AICD in place(schedule removal in [place] next month- 04/13/25), bilateral distal foot amputation, presented to the ER with chief complain of right flank pain. The pain started 4 days back, described as sharp, 10 associated with nausea and vomiting. / He had 5 episodes of vomiting, no blood seen. Patient also complained of dull chest pain, radiating to the back. Per the patient he has been taking vancomycin through PICC line for osteomyelitis infection, and he received a call all 4 days back for abnormal kidney function, asking him to go to ER. Patient discontinued vancomycin at home and presented today with right flank pain and increased urinary frequency. 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 Lives in house with friends, full code, next to kin is Darek Matt (brother). Home medication: Eliquis, atorvastatin, baclofen, clopidogrel, Jardiance, gabapentin, lactulose, linezolid, metoprolol succinate, Flomax, valsartan 10, aspirin, albuterol, tramadol, Dilaudid, vancomycin-discontinued Allergic history: None 03/21/2025 -patient was seen and examined by me at the bedside. Patient reports that the pain in his back and chest are still there. Nephrology and Infectious Disease consult placed, pending. Insulin mild sliding scale and HS have been started today. Objective vital signs Vital Sign Date Time Temp Pulse Resp B/P (MAP) Pulse Ox O2 Delivery O2 Flow Rate FiO2 03/21/25 08:00 97.5 71 18 121/61 (81) 93 97.5 03/21/25 08:00 Nasal Cannula* 2 28 Total Intake and Output 03/20/25 03/20/25 03/21/25 14:59 22:59 06:59 Intake Total 500 ml Balance 500 ml medications Current Medications Medications Dose Ordered Sig/Sunny Route Start Time Stop Time Status Last Admin Dose Admin Morphine Sulfate 2 mg Q4HPRN PRN IV 03/21/25 02:15 Diagnostic Test (Pha) 1 strip ACHS 03/21/25 07:00 03/21/25 12:05 1 STRIP Insulin Human Regular ACHS SC 03/21/25 07:00 03/21/25 12:15 4 UNITS Dextrose 50 ml UD PRN IV 03/21/25 02:15 Aspirin 81 mg DAILY PO 03/22/25 10:00 Clopidogrel Bisulfate 75 mg DAILY PO 03/22/25 10:00 Atorvastatin Calcium 40 mg HS PO 03/21/25 22:00 Metoprolol Succinate 50 mg DAILY PO 03/22/25 10:00 Ertapenem 0.5 gm/ Sodium Chloride 50 ml @ 100 mls/hr DAILY IV 03/22/25 10:00 Pantoprazole Sodium 40 mg DAILY IV 03/22/25 10:00 Sodium Chloride 1,000 ml @ 75 mls/hr [id number] IV 03/21/25 06:45 03/21/25 08:00 75 MLS/HR Acetaminophen/ Hydrocodone Bitart 1 tab Q6HPRN PRN PO 03/21/25 14:30 Insulin Glargine 10 units HS SC 03/21/25 22:00 UNV Insulin Human Lispro 3 units TIDAC SC 03/21/25 17:00 UNV Examination General: Patient alert and oriented in person, place and time. Patient following commands. HEENT: Normocephalic, atraumatic, moist mucous membranes Respiratory/pulmonary: Clear lungs bilaterally, vesicular murmurs present in almost all lung collazo, no associated crackles or wheezes. Cardiovascular: Normal heart sounds S1 and S2 with no associated murmurs Abdomen: Right flank tenderness Extremities: Erythematous, tender ulcer on heel of lower left leg. Bilateral distal foot amputation, atrophy of skin and hair follicles Peripheral Pulses: 3+ Radial (R). 3+ Radial (L). 3+ Dorsalis pedis (R). 3+ Dorsalis pedis(L) Skin: No rashes or pruritus, there is no sacral edema present at this time. Neurological: Intact cranial nerves with no focal neurologic deficits laboratory and microbiology Laboratory Tests 03/21/25 04:56 03/21/25 02:20 Test 03/21/25 04:56 Range/Units Serum Glucose 374 H 74-106 mg/dL Labs and/or images reviewed: Labs reviewed by me, Image(s) reviewed by me Problem List/Assessment/Plan Problem List/Assessment/Plan #Acute kidney injury stage, likely iatrogenic #Lactic acidosis -GFR-17, creatinine 3.84 (creatinine last month was 0.83) -Discontinued vancomycin. Avoiding nephrotoxins like NSAIDS, contrast, renally dosed medications -Linezolid 600 mg b.i.d. started on 03/21 -Low salt diet, maintain hydration -Repeat BMP -Discontinued vancomycin, started on ertapenem -Nephrology consulted, pending -usg kidney shows no abnormality #Type 2 diabetes mellitus, HbA1c 8.1 #Diabetic foot ulcer #Osteomyelitis #Status post bilateral distal foot amputation -insulin Lantus 10 units HS -insulin lispro 3 units before each meal thrice a day -mild Sliding scale insulin -Monitor blood glucose -Discontinued vancomycin, started on ertapenem -Consulted infectious disease -ID consulted #Hypertension -Continue metoprolol, holding off losartan #PAD -Greater exercise regimen, clinical monitoring #History of hepatitis-C infection, s/p antibiotic treatment #History of drug use #Acute coronary syndrome #STEMI s/p PTCA #Chronic systolic heart failure without exacerbation/ HFrEF with EF 35-40% #CAD with multiple stents and CABG #Endocarditis #Nonfunctional AICD -On GDMT metoprolol succinate, Jardiance, valsartan, holding off Jardiance and valsartan DIET: Cardiac DVT PROPHYLAXIS: Heparin GI PROPHYLAXIS: Protonix Goals of care discussed with the patient for more than 27 minutes: Full code status Case discussed with , patient and nurse. Plan discussed with: Patient My Orders My Orders Orders - FUNMI ROUSE Procedure Category Date Status Time Hydrocodone-Acet PHA 03/21/25 In Process 5/325mg Tab ([place] 14:30 Insulin Lantus PHA 03/21/25 Logged (Glargine) (Lantus) 22:00 Insulin Lispro PHA 03/21/25 Logged (Human) (Humalog) 17:00 Date of Service: Mar 21, 2025 Billing Provider: MANDO TERRELL MD, SREYA RESIDENT Mar 21, 2025 14:55
[2025-03-21 16:04] VITALS: BP 116/83; PULSE 65; PULSE 80; RESP 14; RESP 19; TEMP 99.3; O2SAT 93; O2SAT 96
[2025-03-21 16:17] LABS: Albumin 4.6 g/dL (3.2-4.8); Alkaline Phosphatase 90 U/L (46-116); Bilirubin, Direct 0.2 mg/dL (<0.3); Bilirubin, Total 0.5 mg/dL (0.2-1.0)
[2025-03-21 16:21] LABS: Alanine Aminotransferase < 9 U/L (7-40); Total Protein 8.2 g/dL (5.7-8.2)
[2025-03-21] MEDS: INSULIN LISPRO (HUMAN) 100 UNITS/ML ML SC SCH ×2 (17:00)
--- NOTE | 2025-03-21 17:07 | DVHCONRES ---
Date Seen: Mar 21, 2025 Resident Creating Document: ORIN DUNHAM RESIDENT Referring Physician resident Ursula Reason for Consultation MESERET History of Present Illness 64-year-old male with past medical history of type 2 diabetes mellitus, DFU, alcohol intoxication, endocarditis, hepatitis-C infection, CAD with multiple stents and 2 CABG surgeries, STEMI s/p PTCA, HFrEF with EF 35-40%, osteomyeliti s, nonfunctional AICD in place(schedule removal in [place] next month- 04/13/25), bilateral distal foot amputation, presented to the ER with chief complain of right flank pain. The pain started 4 days back, described as sharp, 9/10 associated with nausea and vomiting. / He had 5 episodes of vomiting, no blood seen. Patient also complained of dull chest pain, radiating to the back. Per the patient he has been taking vancomycin through PICC line for osteomyelitis infection, and he received a call all 4 days back for abnormal kidney function, asking him to go to ER. Patient discontinued vancomycin at home and presented today with right flank pain and increased urinary frequency. Patient was seen and examined on the bedside. he is alert oriented x3. comp laint of chest pain and abdominal pain. 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 Past Surgical History multiple PTCA, CABG x2, bilateral distal foot amputation Family History: Cardiovascular disease G8 FATHER, Onset:Unknown Diabetes mellitus G8 MOTHER, Onset:Unknown FHx: kidney disease G8 MOTHER, Onset:Unknown Allergies: Coded Allergies: Hydrocodone (Verified Allergy, Severe, LEG SWELLING, 04/25/24) Ketorolac Tromethamine (Verified Allergy, Unknown, 04/03/24) Home Meds Active Scripts Tramadol Hcl (Tramadol Hcl) 50 Mg Tab, 100 MG PO BIDPRN PRN, #28 TAB Prov:FRANCA ENCINAS MD 02/22/25 Clopidogrel Bisulfate (Plavix) 75 Mg Tab, 1 TAB PO DAILY, #90 TAB 1 Refill Prov:FARNCA ENCINAS MD 02/22/25 Hydromorphone Hcl (Dilaudid) 2 Mg Tab, 1 TAB PO TID for 7 Days, #21 TAB Prov:XOCHITL GRAY CHUCK TENDER 01/12/25 Valsartan (Valsartan) 40 Mg Tab, 40 MG PO DAILY for 30 Days, #30 TAB Prov:XOCHITL GRAY CHUCK TENDER 01/12/25 Lidocaine HCl (Aspercreme Lidocaine) 4 % Liq, 4 % EX BID PRN for 30 Days, #120 [facility]Q [facility] 08/[facility]/24 Linezolid (Zyvox) 600 Mg Tab, 600 MG PO BID for 60 Days, #120 TAB [facility] 08/02/24 Pantoprazole Sodium Sesquihydr (Pantoprazole Sodium) 40 Mg Tab, 40 MG PO DAILY@0600 for 30 Days, #30 TAB [facility] 08/02/24 Metoprolol Succinate (Toprol Xl) 50 Mg Tab, 25 MG PO DAILY for 30 Days, #15 TAB [facility] 08/02/24 Lactulose (Lactulose) 10 Gm/15 Ml Jeannie, 30 ML PO Q6HPRN PRN for 30 Days, #60 ML [facility] 08/02/24 Indomethacin (Indocin) 25 Mg Cp, 25 MG PO TID for 15 Days, #60 CAP [facility] 08/02/24 Empagliflozin (Jardiance) 10 Mg Tab, 10 MG PO DAILY for 30 Days, #30 TAB Prov[facility] 08/02/24 Atorvastatin Calcium (ATORVASTATIN CALCIUM) 20 Mg Tab, 80 MG PO HS for 30 Days, #120 TAB [facility] 08/02/24 Apixaban Base (ELIQUIS) 5 Mg Tab, 5 MG PO BID for 30 Days, #60 TAB [facility] 08/02/24 Acetaminophen (Acetaminophen) 325 Mg Tab, 650 MG PO Q8HR for 10 Days, #60 TAB [facility] 08/02/24 Oxycodone HCl (Oxycodone Hydrochloride) 10 Mg Tab, 10 MG PO TIDPRN PRN for 7 Days, #21 TAB Prov:TAMMY ANNE MD 04/07/24 Oxycodone Hcl (OxyCONTIN ER Tablet) 10 Mg Tb, 1 TAB PO BID for 7 Days, #14 TAB 0 Refills Prov:TAMMY ANNE MD 04/07/24 Tamsulosin Hcl (Flomax) 0.4 Mg Cap, 0.4 MG PO QPM for 30 Days, #30 CAP 0 Refills Prov:TAMMY ANNE MD 04/07/24 Baclofen (Baclofen) 10 Mg Tab, 5 MG PO Q8HR for 30 Days, #45 TAB 0 Refills Prov:TAMMY ANNE MD 04/07/24 Reported Medications Gabapentin (Gabapentin) 600 Mg Tab, 600 MG PO BID for 30 Days, MG 02/20/25 Tramadol Hcl (Tramadol Hcl) 50 Mg Tab, 200 MG PO BIDPRN PRN for PAIN SCALE 7 THRU 10, MG 01/01/25 Hydromorphone Hcl (Dilaudid) 2 Mg Tab, 1 TAB PO Q4HPRN PRN for PAIN SCALE 7 THRU 10, #120 TAB 01/01/25 Current Medications Current Medications Medications (Trade) Dose Ordered Sig/Sunny Route PRN Reason Start Time Stop Time Status Last Admin Morphine Sulfate 2 mg Q4HPRN PRN IV SEVERE PAIN (7-10 PAIN SCALE) 03/21/25 02:15 Diagnostic Test (Pha) (Accu-Chek Comfort Curve T) 1 strip [facility] 03/21/25 07:00 03/21/25 14:57 DC 03/21/25 12:05 Insulin Human Regular (InsuLIN R) [facility] [place] 03/21/25 07:00 03/21/25 14:57 DC 03/21/25 12:15 Dextrose 50 ml UD PRN IV Blood Sugar LESS THAN 60 03/21/25 02:15 03/21/25 14:57 DC Sodium Chloride 1,000 ml @ 125 mls/hr Q8H IV 03/21/25 02:15 03/21/25 06:20 DC Heparin Sodium (Porcine) 5,000 units Q12HR [place] 03/21/25 10:00 03/21/25 14:12 DC 03/21/25 10:26 Aspirin 81 mg DAILY PO 03/22/25 10:00 Clopidogrel Bisulfate (Plavix) 75 mg DAILY PO 03/22/25 10:00 Atorvastatin Calcium (Lipitor) 40 mg HS PO 03/21/25 22:00 Metoprolol Succinate (Toprol Xl) 50 mg DAILY PO 03/22/25 10:00 Ertapenem 0.5 gm/ Sodium Chloride 50 ml @ 100 mls/hr DAILY IV 03/22/25 10:00 Pantoprazole Sodium (Protonix) 40 mg DAILY IV 03/22/25 10:00 Sodium Chloride 1,000 ml @ 75 mls/hr [id number] IV 03/21/25 06:45 03/21/25 08:00 Acetaminophen/ Hydrocodone Bitart ([place] 5/325MG Tab) 1 tab Q6HPRN PRN PO SEVERE PAIN (7-10 PAIN SCALE) 03/21/25 14:30 03/21/25 15:01 DC Insulin Glargine (Lantus) 10 units HS SC 03/21/25 22:00 Insulin Human Lispro (HumaLOG) 3 units TIDAC SC 03/21/25 17:00 Insulin Human Lispro (HumaLOG) AC SC 03/21/25 17:00 Linezolid 300 ml @ 150 mls/hr Q12H IV 03/21/25 18:00 Review of Systems Constitutional: No: Fever, Chills, Sweats, Weakness, Malaise, Other Eyes: No: Pain, Vision change, Conjunctivae inflammation, Eyelid inflammation, Other, Redness ENT: No: Ear pain, Ear discharge, Nose pain, Nose discharge, Nose congestion, Mouth pain, Mouth swelling, Throat pain, Throat swelling, Other Respiratory: Shortness of breath, improving No: Cough, Dry,Wheezing, Hemoptysis, Pleuritic Pain, Sputum, Wheezing, Other Cardiovascular: No: Chest Pain, Palpitations, Orthopnea, Paroxysmal Noc. Dyspnea, Edema, Lt Headedness, Other Gastrointestinal: No: Nausea, Vomiting, Abdominal Pain, Diarrhea, Constipation, Melena, Hematochezia, Other Musculoskeletal: No: other, neck pain, shoulder pain, arm pain, back pain, hand pain, leg pain, foot pain Neurological:; No: Weakness, Numbness, Incoordination, Change in speech, C onfusion, Seizures Vital Signs Vital Signs Date Time Temp Pulse Resp B/P (MAP) Pulse Ox O2 Delivery O2 Flow Rate FiO2 03/21/25 14:00 78 25 146/78 (100) 91 03/21/25 08:00 97.5 97.5 03/21/25 08:00 Nasal Cannula* 2 28 Physical Exam Physical examination: General Appearance: Alert, Oriented X3, Cooperative, No acute distress HEENT: Atraumatic, PERRLA, EOMI, Mucous membrane moist/pink Respiratory: Clear to auscultation, Normal air movement Cardiovascular: Regular rate, Normal S1, Normal S2, No murmurs, no chest wall tenderness Abdominal: Normal bowel sounds, Soft, rt flank tenderness, No hepatospenomegaly, No masses Extremities: S/P atrial distal foot amputation, No clubbing, No cyanosis, No edema, Normal pulses. Skin: No rashes, No breakdown, No significant lesion Neuro: Normal speech, Strength at 5/5 X4 ext, Normal tone, Sensation intact, grossly intact cranial nerves. Psych/Mental Status: Mental status NL, Mood NL Labs/Diagnostic Data Labs Test 03/21/25 15:45 03/21/25 12:08 03/21/25 09:30 03/21/25 04:56 Range/Units Lactic Acid Level 1.6 0.4-2.0 mmol/L Total Bilirubin 0.5 0.2-1.0 mg/dL Direct Bilirubin 0.2 <0.3 mg/dL Aspartate Amino Transferase (AST) 13 13-40 U/L Alanine Aminotransferase (ALT) < 9 7-40 U/L Alkaline Phosphatase 90 46-116 U/L B-Type Natriuretic Peptide 218.89 0-100 pg/mL Total Protein 8.2 5.7-8.2 g/dL Albumin 4.6 3.2-4.8 g/dL POC Glucose 237 H 70-106 mg/dl Urine Color Colorless Yellow Urine Clarity Turbid H Clear Urine pH 5.5 5.0-9.0 Urine Specific [place] 1.008 1.001-1.035 Urine Protein Trace H Negative Urine Ketones Negative Negative Urine Blood Trace H Negative /uL Urine Nitrite Negative Negative Urine Bilirubin Negative Negative Urine Urobilinogen Normal Negative mg/dL Urine Leukocyte Esterase 3+ Negative /uL Urine RBC 6 0 - 3 /hpf Urine Microscopic WBC 111 H 0-3 /HPF Urine Squamous Epithelial Cells Few <5 /hpf Urine Bacteria None seen None Seen /hpf Urine Creatinine 43.82 30.0-125.0 mg/dL Urine Protein/Creatinine Ratio 0.95 Urine Sodium 55 40-220 mmol/L Urine Glucose 3+ H Normal mg/dL Urine Total Protein 41.8 H 1-14 mg/dL Urine Opiates Screen Neg NEGATIVE Urine Fentanyl Screen Neg NEGATIVE Urine Barbiturates Screen Neg NEGATIVE Urine Phencyclidine Screen Neg NEGATIVE Urine Amphetamines Screen Neg NEGATIVE Urine Benzodiazepines Screen Neg NEGATIVE Urine Cocaine Screen Neg NEGATIVE Urine Cannabinoids Screen Neg NEGATIVE Sodium Level 134 L 136-145 mmol/L Potassium Level 4.4 3.5-5.1 mmol/L Chloride Level 99 98-107 mmol/L Carbon Dioxide Level 21 20-31 mmol/L Anion Gap 14 5-15 Blood Urea Nitrogen 27 H 9-23 mg/dL Creatinine 3.79 H 0.700-1.30 mg/dL Glomerular Filtration Rate Calc 17 >90 mL/min BUN/Creatinine Ratio 7.1 L 10.0-20.0 Serum Glucose 374 H 74-106 mg/dL Calcium Level 8.9 8.7-10.4 mg/dL Test 03/21/25 02:20 Range/Units White Blood Count 8.6 4.4-10.8 10^3/uL Red Blood Count 4.72 4.5-5.90 10^6/uL Hemoglobin 14.2 13.5-17.5 g/dL Hematocrit 42.0 41.0-53.0 % Mean Corpuscular Volume 89.1 80.0-100.0 fL Mean Corpuscular Hemoglobin 30.2 28.0-32.0 pg Mean Corpuscular Hemoglobin Concent 33.9 32.0-36.0 g/dL Red Cell Distribution Width 13.7 11.8-14.3 % Platelet Count 178 140-450 10^3/uL Mean Platelet Volume 7.7 6.9-10.8 fL Neutrophils (%) (Auto) 75.6 37.0-80.0 % Lymphocytes (%) (Auto) 10.6 10.0-50.0 % Monocytes (%) (Auto) 8.7 0.0-12.0 % Eosinophils (%) (Auto) 4.2 0.0-7.0 % Basophils (%) (Auto) 0.9 0.0-2.0 % Neutrophils # (Auto) 6.5 1.6-8.6 10 ^3/uL Lymphocytes # (Auto) 0.9 0.4-5.4 10 ^3/uL Monocytes # (Auto) 0.7 0-1.3 10 ^3/uL Eosinophils # (Auto) 0.4 0-0.8 10 ^3/uL Basophils # (Auto) 0.1 0-0.2 10 ^3/uL Nucleated Red Blood Cells 0.0 % Prothrombin Time 10.9 9.3-11.8 sec Prothrombin Time INR 1.03 0.9-1.15 Activated Partial Thromboplast Time 27.4 24.5-34.5 SEC Hemoglobin A1c 8.1 H <5.7 % A1C Phosphorus Level 5.2 H 2.4-5.1 mg/dL Magnesium Level 1.7 1.6-2.6 mg/dL C-Reactive Protein High Sensitivity 4.49 H <1.0 mg/dL Triglycerides Level 238 H < 150 mg/dL Cholesterol Level 166 < 200 mg/dL LDL Cholesterol 112 H < 100 mg/dL HDL Cholesterol 29 L 40-59 mg/dL Lipase 31 12-53 U/L Vitamin B12 Level 567 211-911 pg/mL Vitamin D 25-Hydroxy 28.5 L 30.0-100 ng/mL Thyroid Stimulating Hormone (TSH) 3.67 0.55-4.78 uIU/mL Assessment Assessment and plan # MESERET in the setting of 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 # Possible vancomycin induced MESERET # Acute complicated cystitis # coronary artery disease, s/p PTCAX1 to RCA on 03/03, history of multiple PTCA, CABG x2 # Chronic systolic heart failure with reduced ejection fraction # Peripheral artery disease # Uncontrolled type 2 diabetes mellitus, hemoglobin A1c 8.1 Plan: - kidney ultrasound revealed normal study - FENA is 3.7% and urinalysis revealed moderate proteinuria - IV normal saline at 75 per hours - continue Lantus 10 units at HS and and insulin lispro 3 units before each meal - continue IV antibiotics and other management as per primary - strict I&O - avoid nephrotoxic medication - monitor BMP Thank you so much for the opportunity to consult on your patient. Nephro team will follow the patient. In case of any questions or concerns please feel free to reach out. Plan discussed with . The patient and caregiver team agreed to the plan. Addendum Patient seen and examined, plan discussed with resident. Agree with above, we will follow closely MESERET in the setting of 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 Plan discussed with: Patient, Other (RN) ORIN DUNHAM Mar 21, 2025 17:07 GUY SALMERON MD Mar 21, 2025 20:39
[2025-03-21] MEDS: LINEZOLID 600MG/300ML 300 ML IV SCH (18:37)
[2025-03-21 20:00] VITALS: PULSE 73; O2SAT 97
[2025-03-21 21:00] VITALS: BP 109/67; PULSE 75; RESP 17; TEMP 99.3; O2SAT 97
[2025-03-21] MEDS: ATORVASTATIN 20 MG TAB PO SCH (21:40)
[2025-03-21] MEDS: INSULIN LANTUS (GLARGINE) 1 /0.01ml (100units/ml) SC SCH (21:40)
[2025-03-22] VITALS (7 sets, daily range): BP systolic 108–143; BP diastolic 54–82; PULSE 56–83; RESP 18–19; TEMP 97.7–98.3; O2SAT 94–99
[2025-03-22] MEDS: HYDROmorphone HCL 2 MG/ML VL/or syr IV ONE (04:15)
[2025-03-22] MEDS: ERTAPENEM SOD INJ 0.5 GM in SODIUM CHL 0.9% 50 ML IV SCH (10:00)
--- NOTE | 2025-03-22 10:07 | DVHPN2 ---
Progress Note Date Seen: Mar 22, 2025 Resident Creating Document: ORIN DUNHAM RESIDENT Has the PT tested + for MRSA If YES, has PT been informed?: No Medical Necessity Reason Pt with a Central, PICC or Fol: No Subjective Review of Systems Patient was seen and examined on the bedside. he is alert oriented x3. complaint of chest pain and abdominal pain. no other active complaint Objective vital signs Vital Sign Date Time Temp Pulse Resp B/P (MAP) Pulse Ox O2 Delivery O2 Flow Rate FiO2 03/22/25 05:00 78 18 143/82 (102) 96 03/21/25 21:00 99.3 99.3 03/21/25 20:00 Room Air* 0 21 Total Intake and Output 03/21/25 03/21/25 03/22/25 15:00 23:00 07:00 Intake Total 375 ml 0 ml 400 ml Output Total 400 ml Balance 375 ml 0 ml 0 ml medications Current Medications Medications Dose Ordered Sig/Sunny Route Start Time Stop Time Status Last Admin Dose Admin Morphine Sulfate 2 mg Q4HPRN PRN IV 03/21/25 02:15 Aspirin 81 mg DAILY PO 03/22/25 10:00 Clopidogrel Bisulfate 75 mg DAILY PO 03/22/25 10:00 Atorvastatin Calcium 40 mg HS PO 03/21/25 22:00 Metoprolol Succinate 50 mg DAILY PO 03/22/25 10:00 Ertapenem 0.5 gm/ Sodium Chloride 50 ml @ 100 mls/hr DAILY IV 03/22/25 10:00 Pantoprazole Sodium 40 mg DAILY IV 03/22/25 10:00 Sodium Chloride 1,000 ml @ 75 mls/hr [id number] IV 03/21/25 06:45 03/21/25 08:00 75 MLS/HR Insulin Glargine 10 units HS SC 03/21/25 22:00 Insulin Human Lispro 3 units TIDAC SC 03/21/25 17:00 Insulin Human Lispro AC SC 03/21/25 17:00 03/21/25 17:00 2 UNITS Linezolid 300 ml @ 150 mls/hr Q12H IV 03/21/25 18:00 03/22/25 05:45 150 MLS/HR Hydromorphone HCl 0.25 mg Q4HPRN PRN IV 03/22/25 09:15 Examination Physical examination: General Appearance: Alert, Oriented X3, Cooperative, No acute distress HEENT: Atraumatic, PERRLA, EOMI, Mucous membrane moist/pink Respiratory: Clear to auscultation, Normal air movement Cardiovascular: Regular rate, Normal S1, Normal S2, No murmurs, no chest wall tenderness Abdominal: Normal bowel sounds, Soft, rt flank tenderness, No hepatospenomegaly, No masses Extremities: S/P atrial distal foot amputation, No clubbing, No cyanosis, No edema, Normal pulses. Skin: No rashes, No breakdown, No significant lesion Neuro: Normal speech, Strength at 5/5 X4 ext, Normal tone, Sensation intact, grossly intact cranial nerves. Psych/Mental Status: Mental status NL, Mood NL laboratory and microbiology Laboratory Tests 03/21/25 04:56 03/21/25 02:20 Test 03/21/25 04:56 Range/Units Serum Glucose 374 H 74-106 mg/dL Microbiology Date/Time Source Procedure Growth Status 03/20/25 17:20 Blood Blood Culture - Preliminary NO GROWTH AFTER 24 HOURS OF INCUBATION. 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 # Possible vancomycin induced MESERET # Acute complicated cystitis # coronary artery disease, s/p PTCAX1 to RCA on 03/03, history of multiple PTCA, CABG x2 # Chronic systolic heart failure with reduced ejection fraction # Peripheral artery disease # Uncontrolled type 2 diabetes mellitus, hemoglobin A1c 8.1 Plan: - Slightly improved kidney function - kidney ultrasound revealed normal study - FENA is 3.7% and urinalysis revealed moderate proteinuria - Continue IV normal saline at 75 per hours - continue Lantus 10 units at HS and and insulin lispro 3 units before each meal - continue IV antibiotics and other management as per primary - strict I&O - avoid nephrotoxic medication - monitor BMP Thank you so much for the opportunity to consult on your patient. Nephro team will follow the patient. In case of any questions or concerns please feel free to reach out. Plan discussed with . The patient and caregiver team agreed to the plan. Addendum Patient seen and examined, plan discussed with resident. Agree with above, we will follow closely Plan discussed with: Patient, Other (RN) My Orders My Orders Orders - ORIN DUNHAM Procedure Category Date Status Time Kidney US 03/21/25 Resulted 13:29 Strict I & O DENIS 03/21/25 In Process 17:03 ORIN DUNHAM Mar 22, 2025 10:07 GUY SALMERON MD Mar 22, 2025 21:40
[2025-03-22] MEDS: HYDROmorphone HCL 2 MG/ML VL/or syr IV PRN (10:19)
[2025-03-22] MEDS: PANTOPRAZOLE 40 MG/10 ML VIAL INJ IV SCH (10:22)
[2025-03-22] MEDS: METOPROLOL SUCCINATE XL 50 MG TAB PO SCH (10:23)
[2025-03-22] MEDS: CLOPIDOGREL BISULFATE 75 MG TAB PO SCH (10:23)
--- NOTE | 2025-03-22 14:27 | DVHPNRES ---
Progress Note Date Seen: Mar 22, 2025 Resident Creating Document: FUNMI ROUSE RESIDENT Has the PT tested + for MRSA If YES, has PT been informed?: No Medical Necessity Reason Pt with a Central, PICC or Fol: No Subjective Review of Systems 64-year-old male with past medical history of type 2 diabetes mellitus, DFU, alcohol intoxication, endocarditis, hepatitis-C infection, CAD with multiple stents and 2 CABG surgeries, STEMI s/p PTCA, HFrEF with EF 35-40%, osteomyelitis, nonfunctional AICD in place(schedule removal in [place] next month- 04/13/25), bilateral distal foot amputation, presented to the ER with chief complain of right flank pain. The pain started 4 days back, described as sharp, 9/10 associated with nausea and vomiting. / He had 5 episodes of vomiting, no blood seen. Patient also complained of dull chest pain, radiating to the back. Per the patient he has been taking vancomycin through PICC line for osteomyelitis infection, and he received a call all 4 days back for abnormal kidney function, asking him to go to ER. Patient discontinued vancomycin at home and presented today with right flank pain and increased urinary frequency. 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 Lives in house with friends, full code, next to kin is Darek Matt (brother). Home medication: Eliquis, atorvastatin, baclofen, clopidogrel, Jardiance, gabapentin, lactulose, linezolid, metoprolol succinate, Flomax, valsartan 10, aspirin, albuterol, tramadol, Dilaudid, vancomycin-discontinued Allergic history: norco 03/21/2025 -patient was seen and examined by me at the bedside. Patient reports that the pain in his back and chest are still there. Nephrology and Infectious Disease consult placed, pending. Insulin mild sliding scale and HS have been started today. 03/22/25 -patient was seen and examined by me at the bedside. Patient had refused taking his insulin Lantus and today morning's insulin lispro. He also had refused blood work to be done. He complained of back pain which was very severe and we gave him Dilaudid 0.25 mg and added Tylenol 650 mg for the interval pain. Blood work will be done again tomorrow to monitor his creatinine levels. Objective vital signs Vital Sign Date Time Temp Pulse Resp B/P (MAP) Pulse Ox O2 Delivery O2 Flow Rate FiO2 03/22/25 10:49 60 18 129/76 03/22/25 08:00 Room Air* 0 21 03/22/25 05:00 96 03/21/25 21:00 99.3 99.3 Total Intake and Output 03/21/25 03/21/25 03/22/25 15:00 23:00 07:00 Intake Total 375 ml 0 ml 400 ml Output Total 400 ml Balance 375 ml 0 ml 0 ml medications Current Medications Medications Dose Ordered Sig/Sunny Route Start Time Stop Time Status Last Admin Dose Admin Morphine Sulfate 2 mg Q4HPRN PRN IV 03/21/25 02:15 Aspirin 81 mg DAILY PO 03/22/25 10:00 03/22/25 10:23 81 MG Clopidogrel Bisulfate 75 mg DAILY PO 03/22/25 10:00 03/22/25 10:23 75 MG Atorvastatin Calcium 40 mg HS PO 03/21/25 22:00 Metoprolol Succinate 50 mg DAILY PO 03/22/25 10:00 03/22/25 10:23 50 MG Ertapenem 0.5 gm/ Sodium Chloride 50 ml @ 100 mls/hr DAILY IV 03/22/25 10:00 03/22/25 10:00 100 MLS/HR Pantoprazole Sodium 40 mg DAILY IV 03/22/25 10:00 03/22/25 10:22 40 MG Sodium Chloride 1,000 ml @ 75 mls/hr [id number] IV 03/21/25 06:45 03/21/25 08:00 75 MLS/HR Insulin Glargine 10 units HS SC 03/21/25 22:00 Insulin Human Lispro 3 units TIDAC SC 03/21/25 17:00 03/22/25 12:20 3 UNITS Insulin Human Lispro AC SC 03/21/25 17:00 03/22/25 12:19 3 UNITS Linezolid 300 ml @ 150 mls/hr Q12H IV 03/21/25 18:00 03/22/25 05:45 150 MLS/HR Hydromorphone HCl 0.25 mg Q4HPRN PRN IV 03/22/25 09:15 03/22/25 10:19 0.25 MG Acetaminophen 650 mg Q4HP PRN PO 03/22/25 14:30 UNV Examination General: Patient alert and oriented in person, place and time. Patient following commands. HEENT: Normocephalic, atraumatic, moist mucous membranes Respiratory/pulmonary: Clear lungs bilaterally, vesicular murmurs present in almost all lung collazo, no associated crackles or wheezes. Cardiovascular: Normal heart sounds S1 and S2 with no associated murmurs Abdomen: Right flank tenderness Extremities: Erythematous, tender ulcer on lower left leg. Bilateral distal foot amputation, atrophy of skin and hair follicles Peripheral Pulses: 3+ Radial (R). 3+ Radial (L). 3+ Dorsalis pedis (R). 3+ Dorsalis pedis(L) Skin: No rashes or pruritus, there is no sacral edema present at this time. Neurological: Intact cranial nerves with no focal neurologic deficits laboratory and microbiology Laboratory Tests 03/21/25 04:56 03/21/25 02:20 Test 03/21/25 04:56 Range/Units Serum Glucose 374 H 74-106 mg/dL Microbiology Date/Time Source Procedure Growth Status 03/21/25 17:05 Nose MRSA Screen - Final Complete 03/20/25 17:20 Blood Blood Culture - Preliminary NO GROWTH AFTER 24 HOURS OF INCUBATION. Resulted Labs and/or images reviewed: Labs reviewed by me, Image(s) reviewed by me Problem List/Assessment/Plan Problem List/Assessment/Plan #Acute kidney injury stage, likely iatrogenic due to vancomycin #Lactic acidosis -GFR-17, creatinine 3.84 (creatinine last month was 0.83) -Discontinued vancomycin. Avoiding nephrotoxins like NSAIDS, contrast, renally dosed medications -Low salt diet, maintain hydration -Discontinued vancomycin, started on ertapenem USG of the kidneys show no significant sonographic abnormality of the kidneys -Nephrology consulted suggested continuation of IV antibiotics, strict I&O, avoid nephrotoxic medication and monitor BMP -Toradol 50 mg once today -bnp 218.89 -urine cr, urine cr:protein ration, urine protein, urine sodium, pending- FENA 3.5% -Dilaudid 0.5 g q.4 PRN -Tylenol 650 mg q.4 PRN -infectious disease consult, pending #Type 2 diabetes mellitus, HbA1c 8.1 #Diabetic foot ulcer #Osteomyelitis #Status post bilateral distal foot amputation -insulin Lantus 10 units HS -insulin lispro 3 units before each meal thrice a day -mild Sliding scale insulin -Monitor blood glucose -Discontinued vancomycin, started on ertapenem -Consulted infectious disease #Hypertension -Continue metoprolol, holding off losartan #PAD -Greater exercise regimen, clinical monitoring #History of hepatitis-C infection, s/p antibiotic treatment #History of drug use #Acute coronary syndrome #STEMI s/p PTCA #Chronic systolic heart failure without exacerbation/ HFrEF with EF 35-40% #CAD with multiple stents and CABG #Endocarditis #Nonfunctional AICD -On GDMT metoprolol succinate, Jardiance, valsartan, holding off Jardiance and valsartan DIET: Cardiac DVT PROPHYLAXIS: Heparin GI PROPHYLAXIS: Protonix Goals of care discussed with the patient for more than 27 minutes: Full code status Case discussed with , patient and nurse. Plan discussed with: Patient, Other (rn) My Orders My Orders Orders - FUNMI ROUSE RESIDENT Procedure Category Date Status Time Insulin Lantus PHA 03/21/25 In Process (Glargine) (Lantus) 22:00 Insulin Lispro PHA 03/21/25 In Process (Human) (Humalog) 17:00 Complete Blood Count LAB 03/22/25 Logged 04:00 Comprehensive LAB 03/22/25 Logged Metabolic Panel 04:00 Communication Order ORDERS 03/21/25 Transmitted 16:33 Linezolid 600mg/300ml PHA 03/21/25 In Process (Zyvox) 18:00 * Dietary Consult CONS 03/21/25 Transmitted 22:26 Hydromorphone PHA 03/22/25 In Process Injection (Dilaudid 09:15 Dietary NOTICE 10/14/25 Transmitted Recommendations 13:42 Complete Blood Count LAB 03/23/25 Verified 04:00 Comprehensive LAB 03/23/25 Verified Metabolic Panel 04:00 Acetaminophen Tablet PHA 03/22/25 Logged (Tylenol Tablet) 14:30 Dietary Evaluation Review Comments: Nutrition Recommendation: 1) Glucerna 240ml TID 2) Daniel 1 pk BID 3) CCHO 60gm + cardiac diet 4) Refer Pipelines Laborer for diabetes education Expected Outcomes/Goals: Wound to improve Lab values to improve Fu 3-5 days Date of Service: Mar 22, 2025 Billing Provider: MANDO TERRELL MD, SREYA RESIDENT Mar 22, 2025 14:27
[2025-03-22] MEDS ORDERED: ACETAMINOPHEN 325 MG TAB PO PRN ×2 (14:30→17:45)
[2025-03-22 15:03] LABS: Hematocrit 37.6 % (41.0-53.0); Hemoglobin 12.5 g/dL (13.5-17.5); Mean Corpuscular Hemoglobin 30.0 pg (28.0-32.0); Mean Corpuscular Volume 90.1 fL (80.0-100.0); Nucleated Red Blood Cells % 0.4 %
[2025-03-22 15:18] LABS: Albumin 3.7 g/dL (3.2-4.8); Alkaline Phosphatase 69 U/L (46-116); Anion Gap 12 (5-15); BUN/Creatinine Ratio 7.7 (10.0-20.0); Carbon Dioxide 23 mmol/L (20-31); Chloride 103 mmol/L (98-107); Potassium 4.1 mmol/L (3.5-5.1); Sodium 138 mmol/L (136-145); Total Protein 6.8 g/dL (5.7-8.2)
[2025-03-22 15:19] LABS: Bilirubin, Total 0.4 mg/dL (0.2-1.0)
[2025-03-22 15:21] LABS: Alanine Aminotransferase < 9 U/L (7-40); Blood Urea Nitrogen 25 mg/dL (9-23); Calcium 8.5 mg/dL (8.7-10.4); Glucose 255 mg/dL (74-106)
[2025-03-23] VITALS (7 sets, daily range): BP systolic 102–134; BP diastolic 57–95; PULSE 60–80; RESP 14–18; TEMP 98–98.8; O2SAT 95–99
[2025-03-23 09:23] LABS: Hematocrit 34.9 % (41.0-53.0); Hemoglobin 11.8 g/dL (13.5-17.5); Mean Corpuscular Hemoglobin 30.2 pg (28.0-32.0); Mean Corpuscular Volume 89.4 fL (80.0-100.0); Nucleated Red Blood Cells % 0.1 %
[2025-03-23 09:40] LABS: Albumin 3.5 g/dL (3.2-4.8); Alkaline Phosphatase 66 U/L (46-116); Anion Gap 11 (5-15); BUN/Creatinine Ratio 7.8 (10.0-20.0); Carbon Dioxide 22 mmol/L (20-31); Chloride 104 mmol/L (98-107); Potassium 3.7 mmol/L (3.5-5.1); Sodium 137 mmol/L (136-145); Total Protein 6.3 g/dL (5.7-8.2)
[2025-03-23 09:42] LABS: Alanine Aminotransferase < 9 U/L (7-40); Bilirubin, Total 0.3 mg/dL (0.2-1.0); Blood Urea Nitrogen 23 mg/dL (9-23); Calcium 8.2 mg/dL (8.7-10.4); Glucose 271 mg/dL (74-106)
--- NOTE | 2025-03-23 13:40 | DVHPN2 ---
Progress Note Date Seen: Mar 23, 2025 Resident Creating Document: ORIN DUNHAM RESIDENT Has the PT tested + for MRSA If YES, has PT been informed?: No Medical Necessity Reason Pt with a Central, PICC or Fol: No Subjective Review of Systems Patient was seen and examined on the bedside. he is alert oriented x3. complaint of chest pain and abdominal pain. no other active complaint Objective vital signs Vital Sign Date Time Temp Pulse Resp B/P (MAP) Pulse Ox O2 Delivery O2 Flow Rate FiO2 03/23/25: 60 17 102/57 03/23/25 09:00 98.8 96 98.8 03/23/25 08:00 Nasal Cannula* 2 28 Total Intake and Output 03/22/25 03/22/25 03/23/25 15:00 23:00 07:00 Intake Total 350 ml 1500 ml 490 ml Output Total 1300 ml 575 ml Balance 350 ml 200 ml -85 ml medications Current Medications Medications Dose Ordered Sig/Sunny Route Start Time Stop Time Status Last Admin Dose Admin Morphine Sulfate 2 mg Q4HPRN PRN IV 03/21/25 02:15 Aspirin 81 mg DAILY PO 03/22/25 10:00 03/23/25 09:47 81 MG Clopidogrel Bisulfate 75 mg DAILY PO 03/22/25 10:00 03/23/25 09:47 75 MG Atorvastatin Calcium 40 mg HS PO 03/21/25 22:00 03/22/25 21:16 40 MG Metoprolol Succinate 50 mg DAILY PO 03/22/25 10:00 03/22/25 10:23 50 MG Ertapenem 0.5 gm/ Sodium Chloride 50 ml @ 100 mls/hr DAILY IV 03/22/25 10:00 03/22/25 10:00 100 MLS/HR Pantoprazole Sodium 40 mg DAILY IV 03/22/25 10:00 03/23/25 09:45 40 MG Sodium Chloride 1,000 ml @ 75 mls/hr [id number] IV 03/21/25 06:45 03/23/25 06:13 75 MLS/HR Insulin Glargine 10 units HS SC 03/21/25 22:00 03/22/25 21:18 10 UNITS Insulin Human Lispro 3 units TIDAC SC 03/21/25 17:00 03/23/25 06:14 3 UNITS Insulin Human Lispro AC SC 03/21/25 17:00 03/23/25 11:30 4 UNITS Linezolid 300 ml @ 150 mls/hr Q12H IV 03/21/25 18:00 03/23/25 06:12 150 MLS/HR Hydromorphone HCl 0.25 mg Q4HPRN PRN IV 03/22/25 09:15 03/23/25 10:25 0.25 MG Acetaminophen 650 mg Q4HP PRN PO 03/22/25 17:45 Examination Physical examination: General Appearance: Alert, Oriented X3, Cooperative, No acute distress HEENT: Atraumatic, PERRLA, EOMI, Mucous membrane moist/pink Respiratory: Clear to auscultation, Normal air movement Cardiovascular: Regular rate, Normal S1, Normal S2, No murmurs, no chest wall tenderness Abdominal: Normal bowel sounds, Soft, rt flank tenderness, No hepatospenomegaly, No masses Extremities: S/P atrial distal foot amputation, No clubbing, No cyanosis, No edema, Normal pulses. Skin: No rashes, No breakdown, No significant lesion Neuro: Normal speech, Strength at 5/5 X4 ext, Normal tone, Sensation intact, grossly intact cranial nerves. Psych/Mental Status: Mental status NL, Mood NL laboratory and microbiology Laboratory Tests 03/23/25 09:08 Test 03/23/25 09:08 Range/Units Serum Glucose 271 H 74-106 mg/dL Microbiology Date/Time Source Procedure Growth Status 03/21/25 17:05 Nose MRSA Screen - Final Complete 03/20/25 17:20 Blood Blood Culture - Preliminary NO GROWTH AFTER 48 HOURS OF INCUBATION. 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 # Possible vancomycin induced MESERET # Acute complicated cystitis # coronary artery disease, s/p PTCAX1 to RCA on 03/03, history of multiple PTCA, CABG x2 # Chronic systolic heart failure with reduced ejection fraction # Peripheral artery disease # Uncontrolled type 2 diabetes mellitus, hemoglobin A1c 8.1 Plan: - Improving kidney function - kidney ultrasound revealed normal study - FENA is 3.7% and urinalysis revealed moderate proteinuria - Continue IV normal saline at 75 per hours - continue Lantus 10 units at HS and and insulin lispro 3 units before each meal - continue IV antibiotics and other management as per primary - strict I&O - avoid nephrotoxic medication - monitor BMP Thank you so much for the opportunity to consult on your patient. Nephro team will follow the patient. In case of any questions or concerns please feel free to reach out. Plan discussed with . The patient and caregiver team agreed to the plan. Addendum Patient seen and examined, plan discussed with resident. Agree with above, we will follow closely Plan discussed with: Patient, Other (RN) Dietary Evaluation Review Comments: Nutrition Recommendation: 1) Glucerna 240ml TID 2) Daniel 1 pk BID 3) CCHO 60gm + cardiac diet 4) Refer Journal Entry Audit Clerk for diabetes education Expected Outcomes/Goals: Wound to improve Lab values to improve Fu 3-5 days ORIN DUNHAM RESIDENT Mar 23, 2025 13:40 GUY SALMERON MD Mar 23, 2025 18:59
--- NOTE | 2025-03-23 16:56 | DVHPNRES ---
Progress Note Date Seen: Mar 23, 2025 Resident Creating Document: FUNMI ROUSE RESIDENT Has the PT tested + for MRSA If YES, has PT been informed?: No Medical Necessity Reason Pt with a Central, PICC or Fol: No Subjective Review of Systems 64-year-old male with past medical history of type 2 diabetes mellitus, DFU, alcohol intoxication, endocarditis, hepatitis-C infection, CAD with multiple stents and 2 CABG surgeries, STEMI s/p PTCA, HFrEF with EF 35-40%, osteomyelitis, nonfunctional AICD in place(schedule removal in [place] next month- 04/13/25), bilateral distal foot amputation, presented to the ER with chief complain of right flank pain. The pain started 4 days back, described as sharp, 9/10 associated with nausea and vomiting. / He had 5 episodes of vomiting, no blood seen. Patient also complained of dull chest pain, radiating to the back. Per the patient he has been taking vancomycin through PICC line for osteomyelitis infection, and he received a call all 4 days back for abnormal kidney function, asking him to go to ER. Patient discontinued vancomycin at home and presented today with right flank pain and increased urinary frequency. 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 Lives in house with friends, full code, next to kin is Darek Matt (brother). Home medication: Eliquis, atorvastatin, baclofen, clopidogrel, Jardiance, gabapentin, lactulose, linezolid, metoprolol succinate, Flomax, valsartan 10, aspirin, albuterol, tramadol, Dilaudid, vancomycin-discontinued Allergic history: norco 03/21/2025 -patient was seen and examined by me at the bedside. Patient reports that the pain in his back and chest are still there. Nephrology and Infectious Disease consult placed, pending. Insulin mild sliding scale and HS have been started today. 03/22/25 -patient was seen and examined by me at the bedside. Patient had refused taking his insulin Lantus and today morning's insulin lispro. He also had refused blood work to be done. He complained of back pain which was very severe and we gave him Dilaudid 0.25 mg and added Tylenol 650 mg for the interval pain. Blood work will be done again tomorrow to monitor his creatinine levels. 03/23/2025 patient was seen and examined by me at the bedside. Evening home medication tramadol for patient's pain and anxiety. Patient requires continuation of IV medication and social sciences instructor has been consulted for SNF placement. continue to monitor him until placement is found. Objective vital signs Vital Sign Date Time Temp Pulse Resp B/P (MAP) Pulse Ox O2 Delivery O2 Flow Rate FiO2 03/23/25 15:41 86 14 122/92 03/23/25 09:00 98.8 96 98.8 03/23/25 08:00 Nasal Cannula* 2 28 Total Intake and Output 03/22/25 03/22/25 03/23/25 15:00 23:00 07:00 Intake Total 350 ml 1500 ml 490 ml Output Total 1300 ml 575 ml Balance 350 ml 200 ml -85 ml medications Current Medications Medications Dose Ordered Sig/Sunny Route Start Time Stop Time Status Last Admin Dose Admin Morphine Sulfate 2 mg Q4HPRN PRN IV 03/21/25 02:15 Aspirin 81 mg DAILY PO 03/22/25 10:00 03/23/25 09:47 81 MG Clopidogrel Bisulfate 75 mg DAILY PO 03/22/25 10:00 03/23/25 09:47 75 MG Atorvastatin Calcium 40 mg HS PO 03/21/25 22:00 03/22/25 21:16 40 MG Metoprolol Succinate 50 mg DAILY PO 03/22/25 10:00 03/22/25 10:23 50 MG Ertapenem 0.5 gm/ Sodium Chloride 50 ml @ 100 mls/hr DAILY IV 03/22/25 10:00 03/23/25 10:00 100 MLS/HR Pantoprazole Sodium 40 mg DAILY IV 03/22/25 10:00 03/23/25 09:45 40 MG Sodium Chloride 1,000 ml @ 75 mls/hr [id number] IV 03/21/25 06:45 03/23/25 06:13 75 MLS/HR Insulin Glargine 10 units HS SC 03/21/25 22:00 03/22/25 21:18 10 UNITS Insulin Human Lispro 3 units TIDAC SC 03/21/25 17:00 03/23/25 06:14 3 UNITS Insulin Human Lispro AC SC 03/21/25 17:00 03/23/25 16:51 3 UNITS Linezolid 300 ml @ 150 mls/hr Q12H IV 03/21/25 18:00 03/23/25 06:12 150 MLS/HR Hydromorphone HCl 0.25 mg Q4HPRN PRN IV 03/22/25 09:15 03/23/25 15:11 0.25 MG Acetaminophen 650 mg Q4HP PRN PO 03/22/25 17:45 Examination General: Patient alert and oriented in person, place and time. Patient following commands. HEENT: Normocephalic, atraumatic, moist mucous membranes Respiratory/pulmonary: Clear lungs bilaterally, vesicular murmurs present in almost all lung collazo, no associated crackles or wheezes. Cardiovascular: Normal heart sounds S1 and S2 with no associated murmurs Abdomen: Right flank tenderness Extremities: Erythematous, tender ulcer on lower left leg. Bilateral distal foot amputation, atrophy of skin and hair follicles Peripheral Pulses: 3+ Radial (R). 3+ Radial (L). 3+ Dorsalis pedis (R). 3+ Dorsalis pedis(L) Skin: No rashes or pruritus, there is no sacral edema present at this time. Neurological: Intact cranial nerves with no focal neurologic deficits laboratory and microbiology Laboratory Tests 03/23/25 09:08 Test 03/23/25 09:08 Range/Units Serum Glucose 271 H 74-106 mg/dL Microbiology Date/Time Source Procedure Growth Status 03/21/25 17:05 Nose MRSA Screen - Final Complete 03/20/25 17:20 Blood Blood Culture - Preliminary NO GROWTH AFTER 48 HOURS OF INCUBATION. Resulted Labs and/or images reviewed: Labs reviewed by me, Image(s) reviewed by me Problem List/Assessment/Plan Problem List/Assessment/Plan #Acute kidney injury stage, likely iatrogenic #Lactic acidosis -GFR-17, creatinine 3.84 (creatinine last month was 0.83) -Discontinued vancomycin. Avoiding nephrotoxins like NSAIDS, contrast, renally dosed medications -Low salt diet, maintain hydration -Discontinued vancomycin, started on ertapenem USG of the kidneys show no significant sonographic abnormality of the kidneys -Nephrology consulted suggested continuation of IV antibiotics, strict I&O, avoid nephrotoxic medication and monitor BMP -Toradol 50 mg once today -bnp 218.89 -urine cr, urine cr:protein ration, urine protein, urine sodium, pending- FENA 3.5% -Dilaudid 0.5 g q.4 PRN -Tylenol 650 mg q.4 PRN -nacl 0.9% 75cc/hr #Type 2 diabetes mellitus, HbA1c 8.1 #Diabetic foot ulcer #Osteomyelitis #Status post bilateral distal foot amputation -insulin Lantus 10 units HS -insulin lispro 3 units before each meal thrice a day -mild Sliding scale insulin -Monitor blood glucose -Discontinued vancomycin, started on ertapenem -Consulted infectious disease #Hypertension -Continue metoprolol, holding off losartan #PAD -Greater exercise regimen, clinical monitoring #History of hepatitis-C infection, s/p antibiotic treatment #History of drug use #Acute coronary syndrome #STEMI s/p PTCA #Chronic systolic heart failure without exacerbation/ HFrEF with EF 35-40% #CAD with multiple stents and CABG #Endocarditis #Nonfunctional AICD -On GDMT metoprolol succinate, Jardiance, valsartan, holding off Jardiance and valsartan DIET: Cardiac DVT PROPHYLAXIS: Heparin GI PROPHYLAXIS: Protonix Goals of care discussed with the patient for more than 27 minutes: Full code status Case discussed with , patient and nurse. Plan discussed with: Patient My Orders My Orders Orders - FUNMI ROUSE RESIDENT Procedure Category Date Status Time Acetaminophen Tablet PHA 03/22/25 In Process (Tylenol Tablet) 17:45 Discontinue Tele DENIS 03/23/25 In Process 09:38 Transfer Orders XFER 03/23/25 Transmitted 09:38 Apply: DENIS 03/23/25 In Process 10:00 Apply Z-Guard DENIS 03/23/25 In Process 10:00 * Hem Marker CONS 03/23/25 Transmitted Consult Dietary Evaluation Review Comments: Nutrition Recommendation: 1) Glucerna 240ml TID 2) Daniel 1 pk BID 3) CCHO 60gm + cardiac diet 4) Refer Multi Craft Maintenance Technician for diabetes education Expected Outcomes/Goals: Wound to improve Lab values to improve Fu 3-5 days Date of Service: Mar 23, 2025 Billing Provider: MANDO TERRELL MD, SREYA RESIDENT Mar 23, 2025 16:56
[2025-03-24 05:00] VITALS: BP 122/66; PULSE 60; RESP 18; TEMP 98; O2SAT 95
[2025-03-24] MEDS: INSULIN LANTUS (GLARGINE) 1 /0.01ml (100units/ml) SC SCH (09:00)
[2025-03-24] MEDS: INSULIN LISPRO (HUMAN) 100 UNITS/ML ML SC SCH (09:00)
[2025-03-24 09:42] LABS: Hematocrit 36.0 % (41.0-53.0); Hemoglobin 12.3 g/dL (13.5-17.5); Mean Corpuscular Hemoglobin 29.9 pg (28.0-32.0); Mean Corpuscular Volume 87.4 fL (80.0-100.0); Nucleated Red Blood Cells % 0.0 %
[2025-03-24 09:51] LABS: Chloride 102 mmol/L (98-107); Potassium 3.6 mmol/L (3.5-5.1); Sodium 138 mmol/L (136-145)
[2025-03-24 09:52] LABS: Anion Gap 12 (5-15); Carbon Dioxide 24 mmol/L (20-31)
[2025-03-24 09:55] LABS: Calcium 8.6 mg/dL (8.7-10.4)
[2025-03-24 09:57] LABS: BUN/Creatinine Ratio 9.2 (10.0-20.0)
[2025-03-24 09:59] LABS: Blood Urea Nitrogen 23 mg/dL (9-23); Glucose 272 mg/dL (74-106)
[2025-03-24 13:00] VITALS: BP 134/59; PULSE 61; RESP 18; TEMP 97.6; O2SAT 97
--- NOTE | 2025-03-24 15:17 | DVHDSRES ---
Discharge Summary Date of Admission Resident Creating Document: FUNMI ROUSE RESIDENT Mar 21, 2025 at 02:15 Date of Discharge: Mar 24, 2025 Admitting Diagnosis Acute kidney failure Labs/Diagnostic Data: Laboratory Results Test 03/24/25 12:19 03/24/25 09:26 03/23/25 09:08 03/21/25 15:45 POC Glucose 292 mg/dl (70-106) White Blood Count 6.1 10^3/uL (4.4-10.8) Red Blood Count 4.12 10^6/uL (4.5-5.90) Hemoglobin 12.3 g/dL (13.5-17.5) Hematocrit 36.0 % (41.0-53.0) Mean Corpuscular Volume 87.4 fL (80.0-100.0) Mean Corpuscular Hemoglobin 29.9 pg (28.0-32.0) Mean Corpuscular Hemoglobin Concent 34.2 g/dL (32.0-36.0) Red Cell Distribution Width 14.0 % (11.8-14.3) Platelet Count 129 10^3/uL (140-450) Mean Platelet Volume 8.2 fL (6.9-10.8) Neutrophils (%) (Auto) 76.8 % (37.0-80.0) Lymphocytes (%) (Auto) 10.5 % (10.0-50.0) Monocytes (%) (Auto) 9.1 % (0.0-12.0) Eosinophils (%) (Auto) 3.0 % (0.0-7.0) Basophils (%) (Auto) 0.6 % (0.0-2.0) Neutrophils # (Auto) 4.7 10 ^3/uL (1.6-8.6) Lymphocytes # (Auto) 0.6 10 ^3/uL (0.4-5.4) Monocytes # (Auto) 0.6 10 ^3/uL (0-1.3) Eosinophils # (Auto) 0.2 10 ^3/uL (0-0.8) Basophils # (Auto) 0 10 ^3/uL (0-0.2) Nucleated Red Blood Cells 0.0 % Sodium Level 138 mmol/L (136-145) Potassium Level 3.6 mmol/L (3.5-5.1) Chloride Level 102 mmol/L (98-107) Carbon Dioxide Level 24 mmol/L (20-31) Anion Gap 12 (5-15) Blood Urea Nitrogen 23 mg/dL (9-23) Creatinine 2.49 mg/dL (0.700-1.30) Glomerular Filtration Rate Calc 28 mL/min (>90) BUN/Creatinine Ratio 9.2 (10.0-20.0) Serum Glucose 272 mg/dL (74-106) Calcium Level 8.6 mg/dL (8.7-10.4) Total Bilirubin 0.3 mg/dL (0.2-1.0) Aspartate Amino Transferase (AST) 19 U/L (13-40) Alanine Aminotransferase (ALT) < 9 U/L (7-40) Alkaline Phosphatase 66 U/L (46-116) Total Protein 6.3 g/dL (5.7-8.2) Albumin 3.5 g/dL (3.2-4.8) Lactic Acid Level 1.6 mmol/L (0.4-2.0) Direct Bilirubin 0.2 mg/dL (<0.3) B-Type Natriuretic Peptide 218.89 pg/mL (0-100) Test 03/21/25 09:30 03/21/25 02:20 Urine Color Colorless (Yellow) Urine Clarity Turbid (Clear) Urine pH 5.5 (5.0-9.0) Urine Specific Nunn 1.008 (1.001-1.035) Urine Protein Trace (Negative) Urine Ketones Negative (Negative) Urine Blood Trace /uL (Negative) Urine Nitrite Negative (Negative) Urine Bilirubin Negative (Negative) Urine Urobilinogen Normal mg/dL (Negative) Urine Leukocyte Esterase 3+ /uL (Negative) Urine RBC 6 /hpf (0 - 3) Urine Microscopic WBC 111 /HPF (0-3) Urine Squamous Epithelial Cells Few /hpf (<5) Urine Bacteria None seen /hpf (None Seen) Urine Creatinine 43.82 mg/dL (30.0-125.0) Urine Protein/Creatinine Ratio 0.95 Urine Sodium 55 mmol/L (40-220) Urine Glucose 3+ mg/dL (Normal) Urine Total Protein 41.8 mg/dL (1-14) Urine Opiates Screen Neg (NEGATIVE) Urine Fentanyl Screen Neg (NEGATIVE) Urine Barbiturates Screen Neg (NEGATIVE) Urine Phencyclidine Screen Neg (NEGATIVE) Urine Amphetamines Screen Neg (NEGATIVE) Urine Benzodiazepines Screen Neg (NEGATIVE) Urine Cocaine Screen Neg (NEGATIVE) Urine Cannabinoids Screen Neg (NEGATIVE) Prothrombin Time 10.9 sec (9.3-11.8) Prothrombin Time INR 1.03 (0.9-1.15) Activated Partial Thromboplast Time 27.4 SEC (24.5-34.5) Hemoglobin A1c 8.1 % A1C (<5.7) Phosphorus Level 5.2 mg/dL (2.4-5.1) Magnesium Level 1.7 mg/dL (1.6-2.6) C-Reactive Protein High Sensitivity 4.49 mg/dL (<1.0) Triglycerides Level 238 mg/dL (< 150) Cholesterol Level 166 mg/dL (< 200) LDL Cholesterol 112 mg/dL (< 100) HDL Cholesterol 29 mg/dL (40-59) Lipase 31 U/L (12-53) Vitamin B12 Level 567 pg/mL (211-911) Vitamin D 25-Hydroxy 28.5 ng/mL (30.0-100) Thyroid Stimulating Hormone (TSH) 3.67 uIU/mL (0.55-4.78) Other Laboratory Tests 03/24/25 09:26 Brief Hx & Hospital Course: 64-year-old male with past medical history of type 2 diabetes mellitus, DFU, alcohol intoxication, endocarditis, hepatitis-C infection, CAD with multiple stents and 2 CABG surgeries, STEMI s/p PTCA, HFrEF with EF 35-40%, osteomyelitis, nonfunctional AICD in place(schedule removal in [place] next month- 04/13/25), bilateral distal foot amputation, presented to the ER with chief complain of right flank pain. The pain started 4 days back, described as sharp, 9/10 associated with nausea and vomiting. / He had 5 episodes of vomiting, no blood seen. Patient also complained of dull chest pain, radiating to the back. Per the patient he has been taking vancomycin through PICC line for osteomyelitis infection, and he received a call all 4 days back for abnormal kidney function, asking him to go to ER. Patient discontinued vancomycin at home and presented today with right flank pain and increased urinary frequency. 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 Lives in house with friends, full code, next to kin is Shaka Darek (brother). Home medication: Eliquis, atorvastatin, baclofen, clopidogrel, Jardiance, gabapentin, lactulose, linezolid, metoprolol succinate, Flomax, valsartan 10, aspirin, albuterol, tramadol, Dilaudid, vancomycin-discontinued Allergic history: norco Brief history of hospitalization: Patient came in with acute kidney injury likely iatrogenic due to vancomycin and lactic acidosis. His GFR was 17 and creatinine on presentation was 3.84. Creatinine the month before was 0.83. We discontinued the vancomycin and avoid any nephrotoxic agents. We kept the patient on low-salt diet and maintain hydration. Ertapenem was begun as per Infectious Disease had suggested in his last discharge. USG of the kidneys was done which showed no significant sonographic abnormality of the kidneys. Nephrology was consulted and was on board throughout the hospitalization and they suggested continuation of IV antibiotics, strict input and output monitoring, monitoring BMP which we did daily. Toradol 50 mg was given once. FENA was 3.5 showing intrarenal pathology. We gave the patient Dilaudid .5 mg q.4 PRN, Tylenol 650 mg q.4 PRN for his pain management. As per Nephrology we continued giving the patient any Cl 0.9% 75 cc/hour. In the labs we found that patient's HGB A1c was 8.1. He has type 2 diabetes mellitus, diabetic foot ulcer which was cleaned by Wound Care. we gave him insulin Lantus 10 units HS and insulin lispro 3 units before each meal twice a day. On we increased the dose of Lantus to 15 and lispro to 5 as even with mild sliding scale insulin his blood sugar levels were still elevated. during hospitalization we gave DVT prophylaxis via heparin and GI prophylaxis pantoprazole 40 mg daily. Patient is stable for discharge and we are discharging him to a SNF facility as he requires the continuation of IV medication. Patient has agreed with the discharge plan and communicated understanding about the need of continued antibiotics for another 3 weeks. General: Patient alert and oriented in person, place and time. Patient following commands. HEENT: Normocephalic, atraumatic, moist mucous membranes Respiratory/pulmonary: Clear lungs bilaterally, vesicular murmurs present in almost all lung collazo, no associated crackles or wheezes. Cardiovascular: Normal heart sounds S1 and S2 with no associated murmurs Abdomen: Right flank tenderness Extremities: Erythematous, tender ulcer on lower left leg. Bilateral distal foot amputation, atrophy of skin and hair follicles Peripheral Pulses: 3+ Radial (R). 3+ Radial (L). 3+ Dorsalis pedis (R). 3+ Dorsalis pedis(L) Skin: No rashes or pruritus, there is no sacral edema present at this time. Neurological: Intact cranial nerves with no focal neurologic deficits Addendum 03/25/2025: Patient was discharged yesterday and awaiting SNF placement. He will be going home today. Patient also complained of abdominal pain and KUB showed gaseous abdomen. Patient is doing better. We added docusate 100 mg. Operations or Procedures Exam: CT CT AB PEL WO CON-NO ORAL OR IV History: right flank pain IMPRESSION: No acute abdominal or pelvic findings. Radiation optimization: All CT scans at this facility use at least one of these dose optimization techniques: automated exposure control mA and/or kV adjustment per patient size (includes targeted exams where dose is matched to clinical indication) or iterative reconstruction. CHEST RADIOGRAPH Indication: Hx of PPM IMPRESSION: 1. No acute cardiopulmonary disease. 2. Right PermCath. PROCEDURE(s): KIDUS - KIDNEY REASON: MESERET ORDER NUMBER(s): [id number], ACCESSION NUMBER(s): [id number] CLINICAL HISTORY: MESERET TECHNIQUE: Complete ultrasound exam of the kidneys and bladder was performed. COMPARISON: US KIDNEY on DOS: 04/26/24 FINDINGS: The right kidney has normal echogenicity and measures 10.4 cm. There is no focal parenchymal abnormality or evidence for stone. There is no hydronephrosis. The left kidney has normal echogenicity and measures 10.4 cm. There is no focal parenchymal abnormality or evidence for stone. There is no hydronephrosis. The bladder is grossly unremarkable. IMPRESSION: NO SIGNIFICANT SONOGRAPHIC ABNORMALITY OF THE KIDNEYS. Condition at Discharge: Stable Final Diagnosis/Problems List #Acute kidney injury, likely iatrogenic #Lactic acidosis #Type 2 diabetes mellitus, HbA1c 8.1 #Diabetic foot ulcer #Osteomyelitis #Status post bilateral distal foot amputation #Hypertension #PAD #History of hepatitis-C infection, s/p antibiotic treatment #History of drug use #Acute coronary syndrome #STEMI s/p PTCA #Chronic systolic heart failure without exacerbation/ HFrEF with EF 35-40% #CAD with multiple stents and CABG #Endocarditis #Nonfunctional AICD [facility] Discharge Instruct/Medications Diet: Consistent carbohydrate, Cardiac 2g Na,low cholest Activity: No Restrictions, As Tolerated Follow Up/Referral: Follow up with primary care physician in 2 weeks Follow up with Nephrology in 2 weeks outpatient clinic Follow up in discharge clinic within 2 weeks on 04/01/2025 morning clinic Scheduled Acetaminophen (Acetaminophen), 650 MG PO Q8HR Apixaban Base (Eliquis), 5 MG PO BID Atorvastatin Calcium (Atorvastatin Calcium), 80 MG PO HS Baclofen (Baclofen), 5 MG PO Q8HR Clopidogrel Bisulfate (Plavix), 1 TAB PO DAILY Empagliflozin (Jardiance), 10 MG PO DAILY Gabapentin (Gabapentin), 600 MG PO BID, (Reported) Hydromorphone Hcl (Dilaudid), 1 TAB PO TID Indomethacin (Indocin), 25 MG PO TID Linezolid (Zyvox), 600 MG PO BID Metoprolol Succinate (Toprol Xl), 25 MG PO DAILY Oxycodone Hcl (OxyCONTIN ER Tablet), 1 TAB PO BID Pantoprazole Sodium Sesquihydr (Pantoprazole Sodium), 40 MG PO DAILY@0600 Tamsulosin Hcl (Flomax), 0.4 MG PO QPM Valsartan (Valsartan), 40 MG PO DAILY Scheduled PRN Hydromorphone Hcl (Dilaudid), 1 TAB PO Q4HPRN PRN for PAIN SCALE 7 THRU 10, (Reported) Lactulose (Lactulose), 30 ML PO Q6HPRN PRN Lidocaine HCl (Aspercreme Lidocaine), 4 % EX BID PRN Oxycodone HCl (Oxycodone Hydrochloride), 10 MG PO TIDPRN PRN Tramadol Hcl (Tramadol Hcl), 200 MG PO BIDPRN PRN for PAIN SCALE 7 THRU 10, (Reported) Tramadol Hcl (Tramadol Hcl), 100 MG PO BIDPRN PRN Discharge Statement: "Patient was advised to return to the ER or call 911 if any headaches, dizziness, shortness of breath, chest pain, abdominal pain, bleeding, fevers, or worsening of medical condition. Patient was counseled about treatment plan, medications, possible side effects, patientverbalized understanding. All questions were answered to the best of my ability. This discharge took greater then 30 minutes in planning, reviewing documentation, counseling the patient, and discussing with other team members." ASSESSMENT ASSESSMENT Assessment Acute kidney injury, likely iatrogenic Date of Service: Mar 24, 2025 Billing Provider: MANDO TERRELL MD, SREYA RESIDENT Mar 24, 2025 15:17
[2025-03-24 17:00] VITALS: BP 136/72; PULSE 60; RESP 18; TEMP 98.3; O2SAT 95
--- NOTE | 2025-03-24 18:26 | DVHPN2 ---
Progress Note Date Seen: Mar 24, 2025 Resident Creating Document: ORIN DUNHAM RESIDENT Has the PT tested + for MRSA If YES, has PT been informed?: No Medical Necessity Reason Pt with a Central, PICC or Fol: No Subjective Review of Systems Patient was seen and examined on the bedside. he is alert oriented x3. complaint of chest pain and abdominal pain. no other active complaint Objective vital signs Vital Sign Date Time Temp Pulse Resp B/P (MAP) Pulse Ox O2 Delivery O2 Flow Rate FiO2 03/24/25 17:58 80 22 139/85 03/24/25 17:00 98.3 95 98.3 03/24/25 08:00 Room Air* 0 21 Total Intake and Output 03/23/25 03/23/25 03/24/25 15:00 23:00 07:00 Intake Total 350 ml 1045 ml 1320 ml Output Total 1500 ml 1500 ml Balance 350 ml -455 ml -180 ml medications Current Medications Medications Dose Ordered Sig/Sunny Route Start Time Stop Time Status Last Admin Dose Admin Morphine Sulfate 2 mg Q4HPRN PRN IV 03/21/25 02:15 Aspirin 81 mg DAILY PO 03/22/25 10:00 03/24/25 10:05 81 MG Clopidogrel Bisulfate 75 mg DAILY PO 03/22/25 10:00 03/24/25 10:05 75 MG Atorvastatin Calcium 40 mg HS PO 03/21/25 22:00 03/23/25 20:00 40 MG Metoprolol Succinate 50 mg DAILY PO 03/22/25 10:00 03/24/25 10:06 50 MG Ertapenem 0.5 gm/ Sodium Chloride 50 ml @ 100 mls/hr DAILY IV 03/22/25 10:00 03/24/25 10:00 100 MLS/HR Pantoprazole Sodium 40 mg DAILY IV 03/22/25 10:00 03/24/25 10:05 40 MG Sodium Chloride 1,000 ml @ 75 mls/hr [id number] IV 03/21/25 06:45 03/24/25 14:45 75 MLS/HR Insulin Human Lispro AC SC 03/21/25 17:00 03/24/25 06:16 2 UNITS Linezolid 300 ml @ 150 mls/hr Q12H IV 03/21/25 18:00 03/24/25 17:51 150 MLS/HR Hydromorphone HCl 0.25 mg Q4HPRN PRN IV 03/22/25 09:15 03/24/25 17:58 0.25 MG Acetaminophen 650 mg Q4HP PRN PO 03/22/25 17:45 Tramadol HCl 100 mg BIDPRN PRN PO 03/24/25 08:45 Insulin Glargine 15 units HS SC 03/24/25 09:00 Insulin Human Lispro 5 units TIDAC SC 03/24/25 09:00 Examination Physical examination: General Appearance: Alert, Oriented X3, Cooperative, No acute distress HEENT: Atraumatic, PERRLA, EOMI, Mucous membrane moist/pink Respiratory: Clear to auscultation, Normal air movement Cardiovascular: Regular rate, Normal S1, Normal S2, No murmurs, no chest wall tenderness Abdominal: Normal bowel sounds, Soft, rt flank tenderness, No hepatospenomegaly, No masses Extremities: S/P atrial distal foot amputation, No clubbing, No cyanosis, No edema, Normal pulses. Skin: No rashes, No breakdown, No significant lesion Neuro: Normal speech, Strength at 5/5 X4 ext, Normal tone, Sensation intact, grossly intact cranial nerves. Psych/Mental Status: Mental status NL, Mood NL laboratory and microbiology Laboratory Tests 03/24/25 09:26 Test 03/24/25 09:26 Range/Units Serum Glucose 272 H 74-106 mg/dL Microbiology Date/Time Source Procedure Growth Status 03/21/25 17:05 Nose MRSA Screen - Final Complete 03/20/25 17:20 Blood Blood Culture - Preliminary NO GROWTH AFTER 72 HOURS OF INCUBATION. 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 # Possible vancomycin induced MESERET # Acute complicated cystitis # coronary artery disease, s/p PTCAX1 to RCA on 03/03, history of multiple PTCA, CABG x2 # Chronic systolic heart failure with reduced ejection fraction # Peripheral artery disease # Uncontrolled type 2 diabetes mellitus, hemoglobin A1c 8.1 Plan: - Improving kidney function - kidney ultrasound revealed normal study - FENA is 3.7% and urinalysis revealed moderate proteinuria - Continue IV normal saline at 75 per hours - continue Lantus 10 units at HS and and insulin lispro 3 units before each meal - continue IV antibiotics and other management as per primary - monitor BMP - Recommended outpatient follow up with Nephrology in 2 weeks after discharge to monitor kidney function. Plan discussed with Dr. Montano. Addendum Patient seen and examined, plan discussed with resident. Agree with above, we will follow closely dc ivf tomorrow Plan discussed with: Patient, Other (Rn) Dietary Evaluation Review Comments: Nutrition Recommendation: 1) Glucerna 240ml TID 2) Daniel 1 pk BID 3) CCHO 60gm + cardiac diet 4) Refer Supportability Engineer for diabetes education Expected Outcomes/Goals: Wound to improve Lab values to improve Fu 3-5 days ORIN DUNHAM Mar 24, 2025 18:26 GUY MONTANO MD Mar 24, 2025 21:51
--- NOTE | 2025-03-24 19:12 | DVH ---
Date: 03/24/2025 06:36 PM Examination: XY KUB ABDOMEN SINGLE VIEW History: abdominal pain Comparison: None TECHNIQUE: Frontal views of the abdomen was obtained. FINDINGS: Bowel gas pattern is unremarkable. The lung bases are unremarkable. No acute osseous abnormality identified. IMPRESSION: 1. Nonobstructive bowel gas pattern. 2. Findings most consistent with ileus.
[2025-03-24 21:00] VITALS: BP 106/46; PULSE 66; RESP 18; TEMP 97.7; O2SAT 94
[2025-03-24] MEDS: FLORASTOR (S. BOULARDII) 250 MG CAP PO SCH (22:18)
[2025-03-25 01:00] VITALS: BP 135/80; PULSE 60; RESP 14; TEMP 98.1; O2SAT 94
[2025-03-25 08:00] VITALS: PULSE 60; RESP 18; O2SAT 96
[2025-03-25 09:03] VITALS: BP 131/71; PULSE 60; RESP 16; TEMP 97.9; O2SAT 96
[2025-03-25] MEDS: DOCUSATE SOD 100 MG CAP PO ONE (10:45)
[2025-03-25] MEDS: HYDROmorphone HCL 2 MG/ML VL/or syr IV PRN (11:37)
[2025-03-25 11:50] VITALS: BP 131/71; PULSE 74; RESP 16; TEMP 97.9
[2025-03-25 13:00] VITALS: BP 139/76; PULSE 60; RESP 18; TEMP 98; O2SAT 97
[2025-03-25 15:53] VITALS: BP 139/76; PULSE 60; RESP 18
--- NOTE | 2025-03-25 16:00 | DVHPNRES ---
Progress Note Date Seen: Mar 25, 2025 Resident Creating Document: FUNMI ROUSE RESIDENT Has the PT tested + for MRSA If YES, has PT been informed?: No Medical Necessity Reason Pt with a Central, PICC or Fol: No Subjective Review of Systems 64-year-old male with past medical history of type 2 diabetes mellitus, DFU, alcohol intoxication, endocarditis, hepatitis-C infection, CAD with multiple stents and 2 CABG surgeries, STEMI s/p PTCA, HFrEF with EF 35-40%, osteomyelitis, nonfunctional AICD in place(schedule removal in [place] next month- 04/13/25), bilateral distal foot amputation, presented to the ER with chief complain of right flank pain. The pain started 4 days back, described as sharp, 9/10 associated with nausea and vomiting. / He had 5 episodes of vomiting, no blood seen. Patient also complained of dull chest pain, radiating to the back. Per the patient he has been taking vancomycin through PICC line for osteomyelitis infection, and he received a call all 4 days back for abnormal kidney function, asking him to go to ER. Patient discontinued vancomycin at home and presented today with right flank pain and increased urinary frequency. 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 Lives in house with friends, full code, next to kin is Darek Matt (brother). Home medication: Eliquis, atorvastatin, baclofen, clopidogrel, Jardiance, gabapentin, lactulose, linezolid, metoprolol succinate, Flomax, valsartan 10, aspirin, albuterol, tramadol, Dilaudid, vancomycin-discontinued Allergic history: norco 03/21/2025 -patient was seen and examined by me at the bedside. Patient reports that the pain in his back and chest are still there. Nephrology and Infectious Disease consult placed, pending. Insulin mild sliding scale and HS have been started today. 03/22/25 -patient was seen and examined by me at the bedside. Patient had refused taking his insulin Lantus and today morning's insulin lispro. He also had refused blood work to be done. He complained of back pain which was very severe and we gave him Dilaudid 0.25 mg and added Tylenol 650 mg for the interval pain. Blood work will be done again tomorrow to monitor his creatinine levels. 03/23/2025 patient was seen and examined by me at the bedside. Patient requires continuation of IV medication and sr. social media & mobile manager has been consulted for SNF placement. continue to monitor him until placement is found. 03/24/25 patient was seen and examined by me today. KUB results showed gaseous abdomen as well as findings most consistent with ileus. Docusate 100 mg was given once. Patient reports passing gas but has not had diarrhea today. we stopped pain management today due to ileus. He was discharged yesterday but we are waiting for SNF placement. 03/25/2025: Patient was seen and examined by me today. Patient was discharged yesterday but awaiting SNF placement. He is going SNF today. He reports feeling better. We have added docusate 100 mg to his SNF medication PRN. Objective vital signs Vital Sign Date Time Temp Pulse Resp B/P (MAP) Pulse Ox O2 Delivery O2 Flow Rate FiO2 03/25/25 15:53 60 18 139/76 03/25/25 13:00 98.0 97 98.0 03/25/25 08:00 Room Air* 0 21 Total Intake and Output 03/24/25 03/24/25 03/25/25 15:00 23:00 07:00 Intake Total 350 ml 1229 ml 1700 ml Output Total 750 ml 600 ml Balance 350 ml 479 ml 1100 ml medications Current Medications Medications Dose Ordered Sig/Sunny Route Start Time Stop Time Status Last Admin Dose Admin Aspirin 81 mg DAILY PO 03/22/25 10:00 03/25/25 10:00 81 MG Clopidogrel Bisulfate 75 mg DAILY PO 03/22/25 10:00 03/25/25 10:00 75 MG Atorvastatin Calcium 40 mg HS PO 03/21/25 22:00 03/24/25 22:18 40 MG Metoprolol Succinate 50 mg DAILY PO 03/22/25 10:00 03/25/25 10:00 50 MG Ertapenem 0.5 gm/ Sodium Chloride 50 ml @ 100 mls/hr DAILY IV 03/22/25 10:00 03/25/25 10:00 100 MLS/HR Pantoprazole Sodium 40 mg DAILY IV 03/22/25 10:00 03/25/25 10:00 40 MG Sodium Chloride 1,000 ml @ 75 mls/hr [id number] IV 03/21/25 06:45 03/25/25 06:31 75 MLS/HR Insulin Human Lispro AC SC 03/21/25 17:00 03/25/25 11:30 3 UNITS Linezolid 300 ml @ 150 mls/hr Q12H IV 03/21/25 18:00 03/25/25 06:34 150 MLS/HR Hydromorphone HCl 0.25 mg Q4HPRN PRN IV 03/22/25 09:15 03/25/25 06:32 0.25 MG Acetaminophen 650 mg Q4HP PRN PO 03/22/25 17:45 Tramadol HCl 100 mg BIDPRN PRN PO 03/24/25 08:45 Insulin Glargine 15 units HS SC 03/24/25 09:00 03/24/25 22:27 15 UNITS Insulin Human Lispro 5 units TIDAC SC 03/24/25 09:00 03/25/25 11:30 5 UNITS Saccharomyces Boulardii 250 mg BID PO 03/24/25 22:00 03/25/25 10:00 250 MG Hydromorphone HCl 1 mg Q4HPRN PRN IV 03/25/25 11:15 03/25/25 15:53 1 MG Examination General: Patient alert and oriented in person, place and time. Patient following commands. HEENT: Normocephalic, atraumatic, moist mucous membranes Respiratory/pulmonary: Clear lungs bilaterally, vesicular murmurs present in almost all lung collazo, no associated crackles or wheezes. Cardiovascular: Normal heart sounds S1 and S2 with no associated murmurs Abdomen: presence of bowel sounds, generalized tenderness on mild palpation Extremities: Erythematous, tender ulcer on lower left leg. Bilateral distal foot amputation, atrophy of skin and hair follicles Peripheral Pulses: 3+ Radial (R). 3+ Radial (L). 3+ Dorsalis pedis (R). 3+ Dorsalis pedis(L) Skin: No rashes or pruritus, there is no sacral edema present at this time. Neurological: Intact cranial nerves with no focal neurologic deficits laboratory and microbiology Laboratory Tests 03/24/25 09:26 Test 03/24/25 09:26 Range/Units Serum Glucose 272 H 74-106 mg/dL Microbiology Date/Time Source Procedure Growth Status 03/21/25 17:05 Nose MRSA Screen - Final Complete 03/20/25 17:20 Blood Blood Culture - Preliminary NO GROWTH AFTER 72 HOURS OF INCUBATION. Resulted Labs and/or images reviewed: Labs reviewed by me, Image(s) reviewed by me Problem List/Assessment/Plan Problem List/Assessment/Plan #Acute kidney injury stage, likely iatrogenic #Lactic acidosis -GFR-17, creatinine 3.84 on admission(creatinine last month was 0.83) -Discontinued vancomycin. Avoiding nephrotoxins like NSAIDS, contrast, renally dosed medications -Low salt diet, maintain hydration -Discontinued vancomycin, started on ertapenem USG of the kidneys show no significant sonographic abnormality of the kidneys -Nephrology consulted suggested continuation of IV antibiotics, strict I&O, avoid nephrotoxic medication and monitor BMP -bnp 218.89 -urine cr, urine cr:protein ration, urine protein, urine sodium, pending- FENA 3.5% -nacl 0.9% 75cc/hr #Type 2 diabetes mellitus, HbA1c 8.1 #Diabetic foot ulcer #Osteomyelitis #Status post bilateral distal foot amputation -insulin Lantus 15 units HS -insulin lispro 5 units before each meal thrice a day -mild Sliding scale insulin -Monitor blood glucose #Hypertension -Continue metoprolol, holding off losartan #PAD -Greater exercise regimen, clinical monitoring #History of hepatitis-C infection, s/p antibiotic treatment #History of drug use #Acute coronary syndrome #STEMI s/p PTCA #Chronic systolic heart failure without exacerbation/ HFrEF with EF 35-40% #CAD with multiple stents and CABG #Endocarditis #Nonfunctional AICD -On GDMT metoprolol succinate; holding off Jardiance and valsartan DIET: Cardiac DVT PROPHYLAXIS: Heparin GI PROPHYLAXIS: Protonix Will be discharged to SNF today Goals of care discussed with the patient for 20 minutes: Full code status Case discussed with Dr. Torrez, patient and nurse. Plan discussed with: Patient, Other (rn) My Orders My Orders Orders - FUNMI ROUSE RESIDENT Procedure Category Date Status Time Kub Abdomen Single XY 03/24/25 Resulted View 18:33 Florastor (S. PHA 03/24/25 In Process Boulardii) (Florastor) 22:00 Discharge DISCHARGE 03/25/25 Transmitted 11:28 Dietary Evaluation Review Comments: Nutrition Recommendation: 1) Glucerna 240ml TID 2) Daniel 1 pk BID 3) CCHO 60gm + cardiac diet 4) Refer Digital Librarian for diabetes education Expected Outcomes/Goals: Wound to improve Lab values to improve Fu 3-5 days Date of Service: Mar 25, 2025 Billing Provider: MALLIKA TORREZ MD Common Visit Codes: 63315-JTL/OBS DISCH DAY >30min Secondary Visit Codes: 88553-BGPSQRAH CARE PLAN 30 MINUTES (20 minutes) Addendum Addendum Addendum I was physically present for the olivarez portions of the service provided to patient by THE RESIDENT. I have reviewed the documentation, discussed the case with resident and agree with the resident's documentation except as noted. Also the patient's clinical case was discussed with the patient's nurse. This medical document was created using an electronic medical record system with computerized dictation system. Although this document has been carefully reviewed, there might still be some phonetic and typographical errors. These areas are purely typographical due to imperfections of the software programs, and do not reflect any compromise in the patient's medical care. Late signature. FUNMI ROUSE Mar 25, 2025 16:00 MALLIKA TORREZ MD Mar 27, 2025 12:45
--- NOTE | 2025-03-25 17:03 | DVHPN2 ---
Progress Note Date Seen: Mar 25, 2025 Resident Creating Document: ORIN DUNHAM RESIDENT Has the PT tested + for MRSA If YES, has PT been informed?: No Medical Necessity Reason Pt with a Central, PICC or Fol: No Subjective Review of Systems Patient was seen and examined on the bedside. he is alert oriented x3. complaint of back pain. no other active complaint. Objective vital signs Vital Sign Date Time Temp Pulse Resp B/P (MAP) Pulse Ox O2 Delivery O2 Flow Rate FiO2 03/25/25 15:53 60 18 139/76 03/25/25 13:00 98.0 97 98.0 03/25/25 08:00 Room Air* 0 21 Total Intake and Output 03/24/25 03/24/25 03/25/25 15:00 23:00 07:00 Intake Total 350 ml 1229 ml 1700 ml Output Total 750 ml 600 ml Balance 350 ml 479 ml 1100 ml Examination Physical examination: General Appearance: Alert, Oriented X3, Cooperative, No acute distress HEENT: Atraumatic, PERRLA, EOMI, Mucous membrane moist/pink Respiratory: Clear to auscultation, Normal air movement Cardiovascular: Regular rate, Normal S1, Normal S2, No murmurs, no chest wall tenderness Abdominal: Normal bowel sounds, Soft, rt flank tenderness, No hepatospenomegaly, No masses Extremities: S/P atrial distal foot amputation, No clubbing, No cyanosis, No edema, Normal pulses. Skin: No rashes, No breakdown, No significant lesion Neuro: Normal speech, Strength at 5/5 X4 ext, Normal tone, Sensation intact, grossly intact cranial nerves. Psych/Mental Status: Mental status NL, Mood NL laboratory and microbiology Laboratory Tests 03/24/25 09:26 Test 03/24/25 09:26 Range/Units Serum Glucose 272 H 74-106 mg/dL Microbiology Date/Time Source Procedure Growth Status 03/21/25 17:05 Nose MRSA Screen - Final Complete 03/20/25 17:20 Blood Blood Culture - Preliminary NO GROWTH AFTER 72 HOURS OF INCUBATION. 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 # Possible vancomycin induced MESERET # Acute complicated cystitis # coronary artery disease, s/p PTCAX1 to RCA on 03/03, history of multiple PTCA, CABG x2 # Chronic systolic heart failure with reduced ejection fraction # Peripheral artery disease # Uncontrolled type 2 diabetes mellitus, hemoglobin A1c 8.1 Plan: - Improving kidney function - kidney ultrasound revealed normal study - FENA is 3.7% and urinalysis revealed moderate proteinuria - Continue IV normal saline at 75 per hours - continue Lantus 10 units at HS and and insulin lispro 3 units before each meal - continue IV antibiotics and other management as per primary - monitor BMP - Recommended outpatient follow up with Nephrology in 2 weeks after discharge to monitor kidney function. Plan discussed with Dr. Wright. Plan discussed with: Patient, Other (RN) Dietary Evaluation Review Comments: Nutrition Recommendation: 1) Glucerna 240ml TID 2) Daniel 1 pk BID 3) CCHO 60gm + cardiac diet 4) Refer Lead Warehouse Associate for diabetes education Expected Outcomes/Goals: Wound to improve Lab values to improve Fu 3-5 days ORIN DUNHAM RESIDENT Mar 25, 2025 17:03
--- NOTE | 2025-03-25 23:36 | ECG ---
[facility] Test Date: 2025-03-25 Test Time: 00:20:06 Pat Name: GEORGIANA VILLAR Department: Room: 0289 B Gender: M Sous Chef: TAWANNA : 1960 Requested By: FUNMI ROUSE Order Number: [id number] Reading MD: Thomas Burton Measurements Intervals [place] Rate: 60 P: 0 SD: 118 QRS: 12 QRSD: 130 T: 256 QT: 486 QTc: 486 Interpretive Statements Sinus rhythm Ventricular premature complex Borderline short SD interval IVCD, consider atypical LBBB Baseline wander in lead(s) V2 Electronically Signed On 03-26-2025 17:36:14 PDT by Thomas Burton Please click the below link to view image of tracing.
== END 2025-03-25 16:05 | DRG 469 ==
LOC: ER 15:46 → EDBD 15:46 → OVERFLOW 03-21 02:15 → TELE-CENTR 03-21 16:17 → CENTRAL 03-23 19:04 → WEST WING 03-24 09:23
PROVIDERS: ADMIT Internal Medicine; ATTEND Internal Medicine
DX: N17.9 Acute kidney failure, unspecified (principal); E87.20 Acidosis, unspecified; I24.9 Acute ischemic heart disease, unspecified; I38 Endocarditis, valve unspecified; M86.8X7 Other osteomyelitis, ankle and foot; I50.22 Chronic systolic (congestive) heart failure; N30.00 Acute cystitis without hematuria; I25.10 Atherosclerotic heart disease of native coronary artery without angina pectoris; E11.69 Type 2 diabetes mellitus with other specified complication; E11.51 Type 2 diabetes mellitus with diabetic peripheral angiopathy without gangrene; N14.19 Nephropathy induced by other drugs, medicaments and biological substances; T50.995A Adverse effect of other drugs, medicaments and biological substances, initial encounter; I10 Essential (primary) hypertension; J44.9 Chronic obstructive pulmonary disease, unspecified; Z95.1 Presence of aortocoronary bypass graft; Z89.432 Acquired absence of left foot; Z89.431 Acquired absence of right foot; I25.2 Old myocardial infarction; Z86.711 Personal history of pulmonary embolism; Z79.899 Other long term (current) drug therapy; Y92.89 Other specified places as the place of occurrence of the external cause
CPT/HCPCS: 36415; 71045; 74018; 74176; 76775; 80048; 80053; 80061; 80076; 80307; 81001; 82306; 82570; 82607; 82962; 83036; 83605; 83690; 83735; 83880; 84100; 84156; 84300; 84443; 84484; 85025; 85610; 85730; 86141; 87040; 87081; 87205; 93005; 96365; 96375; G0378; J1335; J1815; J2405; J2470

== ENCOUNTER 2025-05-13 20:06 | Emergency (ER) | payer MEDICAID ==
[~2025-05-13] VITALS: Ht 182.9 cm; Wt 70.0 kg
--- NOTE | 2025-05-13 20:33 | ED.PDOC ---
History of Present Illness HPI Comments 64 year old male came to ER via EMS for tube removal. Patient picked up from [facility], was sent here to remove the central line at his right upper chest. We contacted the patients doctor, Dr. Jules Reilly and he confirmed that he wants the central line removed only. Patient has no subjective complaints at this time. Chief Complaint: Tube Replacement Time Seen by MD: 20:33 Primary Care Provider: ? Reviewed Notes: Director Of Kids Notes Allergies: Coded Allergies: Hydrocodone (Verified Allergy, Severe, LEG SWELLING, 04/25/24) Ketorolac Tromethamine (Verified Allergy, Unknown, 04/03/24) Home Meds Active Scripts Tramadol Hcl (Tramadol Hcl) 50 Mg Tab, 100 MG PO BIDPRN PRN, #28 TAB Prov:FRANCA ENCINAS MD 02/22/25 Clopidogrel Bisulfate (Plavix) 75 Mg Tab, 1 TAB PO DAILY, #90 TAB 1 Refill Prov:FRANCA ENCINAS MD 02/22/25 Hydromorphone Hcl (Dilaudid) 2 Mg Tab, 1 TAB PO TID for 7 Days, #21 TAB Prov:XOCHITL GRAY TYPE CUTTER 01/12/25 Valsartan (Valsartan) 40 Mg Tab, 40 MG PO DAILY for 30 Days, #30 TAB Prov:XOCHITL GRAY NP 01/12/25 Lidocaine HCl (Aspercreme Lidocaine) 4 % Liq, 4 % EX BID PRN for 30 Days, #120 LIQ Prov:DURGA DAVIS [facility] 08/02/24 Linezolid (Zyvox) 600 Mg Tab, 600 MG PO BID for 60 Days, #120 TAB Prov:DURGA DAVIS [facility] 08/02/24 Pantoprazole Sodium Sesquihydr (Pantoprazole Sodium) 40 Mg Tab, 40 MG PO DAILY@0600 for 30 Days, #30 TAB Prov:DURGA DAVIS 08/02/24 Metoprolol Succinate (Toprol Xl) 50 Mg Tab, 25 MG PO DAILY for 30 Days, #15 TAB Prov:DURGA DAVIS 08/02/24 Lactulose (Lactulose) 10 Gm/15 Ml Jeannie, 30 ML PO Q6HPRN PRN for 30 Days, #60 ML Prov:DURGA DAVIS 08/02/24 Indomethacin (Indocin) 25 Mg Cp, 25 MG PO TID for 15 Days, #60 CAP Prov:JIMDURGA CIFUENTES [facility] 08/02/24 Empagliflozin (Jardiance) 10 Mg Tab, 10 MG PO DAILY for 30 Days, #30 TAB Prov:SUSANDURGA [facility] 08/02/24 Atorvastatin Calcium (ATORVASTATIN CALCIUM) 20 Mg Tab, 80 MG PO HS for 30 Days, #120 TAB Prov:KATENAYDURGA LALA [facility] 08/02/24 Apixaban Base (ELIQUIS) 5 Mg Tab, 5 MG PO BID for 30 Days, #60 TAB Prov:JIMVANEDURGA [facility] 08/02/24 Acetaminophen (Acetaminophen) 325 Mg Tab, 650 MG PO Q8HR for 10 Days, #60 TAB Prov:SUSANDURGA [facility] 08/02/24 Oxycodone HCl (Oxycodone Hydrochloride) 10 Mg Tab, 10 MG PO TIDPRN PRN for 7 Days, #21 TAB Prov:TAMMY ANNE MD 04/07/24 Oxycodone Hcl (OxyCONTIN ER Tablet) 10 Mg Tb, 1 TAB PO BID for 7 Days, #14 TAB 0 Refills Prov:TAMMY ANNE MD 04/07/24 Tamsulosin Hcl (Flomax) 0.4 Mg Cap, 0.4 MG PO QPM for 30 Days, #30 CAP 0 Refills Prov:TAMMY ANNE MD 04/07/24 Baclofen (Baclofen) 10 Mg Tab, 5 MG PO Q8HR for 30 Days, #45 TAB 0 Refills Prov:TAMMY ANNE MD 04/07/24 Reported Medications Gabapentin (Gabapentin) 600 Mg Tab, 600 MG PO BID for 30 Days, MG 02/20/25 Tramadol Hcl (Tramadol Hcl) 50 Mg Tab, 200 MG PO BIDPRN PRN for PAIN SCALE 7 THRU 10, MG 01/01/25 Hydromorphone Hcl (Dilaudid) 2 Mg Tab, 1 TAB PO Q4HPRN PRN for PAIN SCALE 7 THRU 10, #120 TAB 01/01/25 Information Source: Patient, Emergency Med Personnel Mode of Arrival: EMS Past Medical History PAST MEDICAL HISTORY: CAD, CHF, COPD, DM, High Lipids, [place], PE Past Medical History (Other): osteomyelitis left ankle Surgical History: CABG, Hernia Repair, PTCA, Tonsillectomy Family History Family History: Reviewed,noncontributory to illness Social History Smoker: Non-Smoker Alcohol: Occasionally Drugs: Denies Drug Use Lives In: Assisted Care Constitutional: denies: chills, diaphoresis, fatigue, fever, malaise, sweats, weakness, others EENTM: denies: blurred vision, double vision, ear bleeding, ear discharge, ear drainage, ear pain, ear ringing, eye pain, eye redness, hearing loss, mouth pain, mouth swelling, nasal discharge, nose bleeding, nose congestion, nose pain, photophobia, tearing, throat pain, throat swelling, voice changes, others Respiratory: denies: cough, hemoptysis, orthopnea, SOB at rest, shortness of breath, SOB with excertion, stridor, wheezing, others Cardiovascular: denies: chest pain, dizzy spells, diaphoresis, Dyspnea on exertion, edema, irregular heart beat, left arm pain, lightheadedness, palpitations, PND, syncope, others Gastrointestinal: denies: abdomen distended, abdominal pain, blood streaked bowels, constipated, diarrhea, dysphagia, difficulty swallowing, hematemesis, melena, nausea, poor appetite, poor fluid intake, rectal bleeding, rectal pain, vomiting, others Genitourinary: denies: burning, dysuria, flank pain, frequency, hematuria, incontinence, penile discharge, penile sore, pain, testicle pain, testicle swelling, urgency, others Neurological: denies: dizziness, fainting, headache, left sided numbness, left sided weakness, numbness, paresthesia, pre-existing deficit, right sided numbness, right sided weakness, seizure, speech problems, tingling, tremors, weakness, others Musculoskeletal: denies: back pain, gout, joint pain, joint swelling, muscle pain, muscle stiffness, neck pain, others Integumetry: denies: bruises, change in color, change in hair/nails, dryness, laceration, lesions, lumps, rash, wounds, others Allergic/Immunocompromised: denies: Difficulty Healing, Frequent Infections, Hives, Itching, others Hematologic/Lymphatic: denies: anemia, blood clots, easy bleeding, easy bruising, swollen glands, others Endocrine: denies: excessive hunger, excessive sweating, excessive thirst, excessive urination, flushing, intolerance to cold, intolerance to heat, unexplained weight gain, unexplained weight loss, others Psychiatric: denies: anxiety, bipolar disorder, depression, hopeless, panic disorder, schizophrenia, sleepless, suicidal, others Physical Exam General Appearance: No Apparent Distress, Normal, Other (central line right upper chest) HEENT: Normal ENT Inspection, Pharynx Normal, TMs Normal Neck: Full Range of Motion, Non-Tender, Normal, Normal Inspection Respiratory: Chest Non-Tender, Lungs Clear, No Accessory Muscle Use, No Respiratory Distress, Normal Breath Sounds Cardiovascular: No Edema, No JVD, No Murmur, No Gallop, Normal Peripheral Pulses, Regular Rate/Rhythm Breast Exam: Deferred Gastrointestinal: No Organomegaly, Non Tender, No Pulsatile Mass, Normal Bowel Sounds, Soft Genitalia: Deferred Pelvic: Deferred Rectal: Deferred Extremities: No calf tenderness, Normal capillary refill, Normal inspection, Normal range of motion, Non-tender, No pedal edema Musculoskeletal : Apperance: Normal Neurologic: Alert, flight surveyor II-XII nml as Tested, No Motor Deficits, Normal Affect, Normal Mood, No Sensory Deficits Cerebellar Function: Normal Reflexes: Normal Skin: Dry, Normal Color, Warm Lymphatic: No Adenopathy Was a procedure done? Was a procedure done?: No Differential Dx Considerations may include: Central IV line infection, central IV line checkup, central IV line removal request X-Ray, Labs, Meds, VS Vital Signs Date Time Temp Pulse Resp B/P (MAP) Pulse Ox O2 Delivery O2 Flow Rate FiO2 05/13/25 20:06 98.2 68 18 136/77 99 98.2 Time of 1ST Reevaluation: 20:29 Reevaluation 1ST: Unchanged Patient Education/Counseling: Diagnosis, Treatment, Prognosis, Need For Follow Up Family Education/Counseling: No Family Present Comments Patient was sent in by Dr. Debbie reilly a right chest double-lumen central venous catheter removal. He is without any complaints. IV site appears to be clean and intact the line was easily removed without complication. Dr. Reilly requests the patient to be back to the facility after lying removal. SEPSIS Sepsis Screen Date sepsis recognized/suspect: May 13, 2025 Time Sepsis recognized/suspect: 2005 Recent Procedure: No On Antibiotic Therapy: No Respiratory Rate >20: No Heart Rate >90: No Temp<36 C (96.8 F) or >38.3 C: No SBP <90 or MAP <65 mmHG: No New Acute Mental Status Change: No Is the patient on CPAP, BIPAP,: No Vital Signs Date Time Temp Pulse Resp B/P (MAP) Pulse Ox O2 Delivery O2 Flow Rate FiO2 05/13/25 20:06 98.2 68 18 136/77 99 98.2 Departure 1 Departure Time of Disposition: 21:20 Impression: Primary Impression: Lack of intravenous access Disposition: HOME / SELF CARE / HOMELESS Condition: Good Discharged With: Self Critical Care Note Critical Care Time?: No Stability Stability form required: No Heart Score Heart Score: Heart Score Response (Comments) Value History N/A 0 EKG N/A 0 Age N/A 0 Risk Factors N/A 0 Troponin N/A 0 Total 0 I personally scribed for GLORIA ACE MD ([email or web address]) on 05/13/25 at 20:33. Electronically submitted by Emil Eid ([email or web address]). GLORIA ACE MD May 13, 2025 20:33
[2025-05-13 23:12] VITALS: BP 121/66; PULSE 60; RESP 12; TEMP 98; O2SAT 95
== END 2025-05-13 23:12 ==
LOC: EDBD 20:06 → ER 20:06
DX: Z45.2 Encounter for adjustment and management of vascular access device (principal); F10.90 Alcohol use, unspecified, uncomplicated; E11.9 Type 2 diabetes mellitus without complications; I25.10 Atherosclerotic heart disease of native coronary artery without angina pectoris; E78.5 Hyperlipidemia, unspecified; I50.9 Heart failure, unspecified; J44.9 Chronic obstructive pulmonary disease, unspecified; Z88.5 Allergy status to narcotic agent; Z79.891 Long term (current) use of opiate analgesic; Z79.84 Long term (current) use of oral hypoglycemic drugs; Z79.01 Long term (current) use of anticoagulants; Z98.890 Other specified postprocedural states; Z95.1 Presence of aortocoronary bypass graft; Z79.899 Other long term (current) drug therapy; Z79.02 Long term (current) use of antithrombotics/antiplatelets; Z90.89 Acquired absence of other organs